=== PATIENT | female | born 1930 | race Caucasian/White ===

== ENCOUNTER 2016-11-25 16:52 | Inpatient (IN) | payer OTHER ==
[~2016-11-25] VITALS: Ht 167.6 cm; Wt 87.6 kg
[~2016-11-25 16:52] MED LIST: ALBU1AER9 INH; ASPI81TA28 PO; LEVO100T7 PO; LISI-461 PO; LPT40 PO; TPRSR/50 PO; XLTOPS OPB
[2016-11-25] MEDS ORDERED: SODIUM CHLORIDE 0.9% 1000ML 1,000 ML IV STA (17:26)
[2016-11-25] MEDS ORDERED: ACETAMINOPHEN 325 MG TAB PO STA (17:26)
[2016-11-25 17:37] LABS: URINE APPEARANCE TURBID (CLEAR); URINE BILIRUBIN NEG (NEG); URINE COLOR YELLOW; URINE EPITHELIAL CELL AUTO 0-5 /lpf (0-5); URINE NITRITE POS (NEG); URINE SPECIFIC GRAVITY 1.013 (1.000-1.030); UROBILINOGEN NEG (NEG); ZZURINE CULT IF INDIC CATH YES
[2016-11-25 17:38] LABS: MANUAL MICROSCOPIC REQUIRED? NO; REVIEW REQ? YES
[2016-11-25 17:53] LABS: BASO % 0.1 %; BASO ABS # 0.01 K/uL (0-0.2); COMPLETE YES; EOS % 0.1 %; HEMATOCRIT 38.1 % (37-47); IG% 0.2 %; LYMPH % 3.8 %; LYMPH ABS # 0.45 K/uL (1.2-3.4); MEAN CELL VOLUME 97.7 fL (80-100); MEAN CORPUSCULAR HEMOGLOBIN 31.8 pg (25-34); MEAN CORPUSCULAR HGB CONC 32.5 g/dl (32-36); MEAN PLATELET VOLUME 8.8 fL (7.4-10.4); MONO % 9.2 %; NEUT % 86.6 %; PLATELET COUNT 198 K/uL (130-400); WHITE BLOOD COUNT 11.69 K/uL (4.8-10.8)
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
[2016-11-25 18:15] LABS: BUN/CREATININE RATIO 20.4 (10-20); CREATININE 1.2 mg/dl (0.60-1.20); MAGNESIUM 2.2 mg/dl (1.8-2.4); POTASSIUM 4.2 mmol/L (3.5-5.1)
--- NOTE | 2016-11-25 18:45 | DIAGNOSTIC IMAGING REPORT ---
SINGLE VIEW CHEST CLINICAL HISTORY: Fever. Tachycardia. Change in mental status. FINDINGS: An AP, portable, upright chest radiograph is compared to study dated 03/22/2015. The examination is degraded by portable technique and patient rotation. A 2-lead cardiac pacemaker is unchanged in position and partially obscures the left upper chest. The heart is enlarged and there is atherosclerotic calcification of the thoracic aorta. A hiatal hernia is suspected. The pulmonary vasculature is noncongested. Chronic interstitial thickening is unchanged. Bibasilar atelectasis is observed. Scattered calcified granulomas are noted. No pneumothorax is seen. The skeletal structures are osteopenic. Arthritic change is seen in the shoulders and thoracic spine. IMPRESSION: 1. Cardiomegaly and cardiac pacemaker. There is no radiographic evidence of congestive failure. 2. There is no airspace consolidation or large pleural effusion. Electronically signed by: Nicolás Ochoa M.D. 11/25/2016 6:44 PM Dictated Date/Time: 11/25/2016 6:33 PM
[2016-11-25] MEDS ORDERED: CEFTRIAXONE SOD INJ 1 GM ADDVIAL IV STA (19:23)
[2016-11-25] MEDS ORDERED: OXYB5TAB PO (19:48)
[2016-11-25] MEDS ORDERED: ALBU18002 INH (19:48)
[2016-11-25] MEDS ORDERED: ALBINS/ INH (19:48)
--- NOTE | 2016-11-25 20:08 | DIAGNOSTIC IMAGING REPORT ---
CT SCAN OF THE BRAIN WITHOUT IV CONTRAST CLINICAL HISTORY: Change in mental status. COMPARISON STUDY: CT of the brain dated 06/06/2010. TECHNIQUE: Unenhanced axial CT scan of the brain is performed from the vertex to the skull base. CT DOSE: 537.48 mGy.cm FINDINGS: Brain parenchyma: There are age-related involutional changes noting moderate to advanced patchy subcortical and periventricular microangiopathic change. A chronic lacunar infarct is identified in the left caudate head. There is no hemorrhage, mass effect, or evidence of acute territorial ischemia by CT criteria. Kemp-white matter is preserved. No extra-axial fluid collection is seen. Ventricles, sulci, cisterns: Prominent secondary to involutional change. Intracranial vasculature: There is atherosclerotic calcification of the cavernous carotid arteries. Calvarium: Unremarkable. Sinuses and mastoids: There is subtotal opacification of the left maxillary antrum. Thickening and sclerosis of the sinus wall suggests chronicity. The remaining visualized paranasal sinuses are clear. The mastoid air cells are well pneumatized. Orbits: The bony orbits are grossly intact. IMPRESSION: Senescent changes as above with no hemorrhage, mass effect, or evidence of acute territorial ischemia by CT criteria. Electronically signed by: Nicolás Ochoa M.D. 11/25/2016 8:06 PM Dictated Date/Time: 11/25/2016 8:03 PM
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
[2016-11-25 22:10] VITALS: BP 166/72; PULSE 88; TEMP 37; Ht 167.6 cm; Wt 87.6 kg
[2016-11-25] MEDS: SODIUM CHLORIDE 0.9% 500ML 500 ML IV SCH (23:15)
[2016-11-25 23:32] LABS: PROTHROMBIN TIME (PATIENT) 10.7 SECONDS (9.0-12.0)
[2016-11-25 23:44] VITALS: BP 162/72; PULSE 87; TEMP 36.7; O2SAT 99
[2016-11-26] VITALS (14 sets, daily range): BP systolic 95–162; BP diastolic 54–79; PULSE 66–98; TEMP 36.4–37.4; O2SAT 94–97
[2016-11-26] MEDS: LEVOTHYROXINE 100 MCG TAB PO SCH (06:02)
[2016-11-26 06:35] LABS: HEMATOCRIT 39.7 % (37-47); MEAN CELL VOLUME 98.8 fL (80-100); MEAN CORPUSCULAR HEMOGLOBIN 31.6 pg (25-34); MEAN PLATELET VOLUME 8.8 fL (7.4-10.4); PLATELET COUNT 198 K/uL (130-400); RED BLOOD COUNT 4.02 M/uL (4.2-5.4); WHITE BLOOD COUNT 13.38 K/uL (4.8-10.8)
--- NOTE | 2016-11-26 06:57 | DIAGNOSTIC IMAGING REPORT ---
CHEST CTA for PULMONARY ARTERIES CT DOSE: 639.54 mGy.cm HISTORY: Chest pain dyspnea TECHNIQUE: Multiaxial CT images of the chest were performed following the intravenous administration of contrast to evaluate the pulmonary arteries. Maximal intensity projection images were also obtained. COMPARISON STUDY: None. FINDINGS: There is a normal caliber thoracic aorta with no evidence for dissection. There is no evidence for pulmonary embolus. No pleural effusions. No pneumothorax. The liver and spleen are unremarkable. No mediastinal or hilar lymphadenopathy. The central airways are patent. The lungs are clear. Mild cardiomegaly. Cardiac pacemaker placement. Moderate patient motion. Nondiagnostic evaluation of the vessels. Mild prominence of pulmonary vasculature. Generalized atherosclerotic change and ectasia thoracic aorta. IMPRESSION: 1. No evidence for major central pulmonary embolus. 2. Motion artifacts obscures detail of the peripheral vasculature. 3. Moderate cardiomegaly. 4. Generalized ectasia and atherosclerotic change thoracic aorta. Maximum diameter of the aortic root is 3.9 cm. Electronically signed by: Jason Last M.D. 11/26/2016 6:55 AM Dictated Date/Time: 11/26/2016 6:53 AM
[2016-11-26] MEDS: ALBUT/IPRATROP 3MG/0.5MG NEB 3 ML VIAL INH SCH ×4 (07:02→19:15)
[2016-11-26 07:06] LABS: BUN/CREATININE RATIO 15.5 (10-20); CREATININE 1.2 mg/dl (0.60-1.20); MAGNESIUM 2.2 mg/dl (1.8-2.4); POTASSIUM 4.2 mmol/L (3.5-5.1)
[2016-11-26 07:16] LABS: BASO % 0.1 %; BASO ABS # 0.02 K/uL (0-0.2); COMPLETE YES; EOS % 0.1 %; IG% 0.2 %; LYMPH % 7.8 %; LYMPH ABS # 1.04 K/uL (1.2-3.4); MONO % 11.3 %; NEUT % 80.5 %
[2016-11-26 07:17] LABS: THYROID STIMULATING HORMONE 0.329 uIu/ml (0.300-4.500)
--- NOTE | 2016-11-26 07:53 | DIAGNOSTIC IMAGING REPORT ---
ULTRASOUND VENOUS DOPPLER LWR EXT BILA CLINICAL HISTORY: Leg swelling. Chest pain. Dyspnea. COMPARISON STUDY: No previous studies for comparison. FINDINGS: Real-time and color flow Doppler imaging were performed. Flow was seen within the femoral, popliteal and calf veins with no intraluminal thrombus demonstrated. The saphenous vein is patent. IMPRESSION: No evidence of lower extremity DVT. Electronically signed by: Darius Correa M.D. 11/26/2016 7:52 AM Dictated Date/Time: 11/26/2016 7:51 AM
[2016-11-26] MEDS ORDERED: PNEUMOCOCCAL POLYSACCHARIDES 25 MCG/0.5 ML VIAL/SYR IM. ONE (08:00)
[2016-11-26] MEDS ORDERED: PNEUMOCOCCAL ADMINISTRATION CHARGE ONE (08:00)
[2016-11-26] MEDS: SODIUM CHLORIDE 0.9% 500ML 500 ML IV SCH ×2 (08:14→17:15)
[2016-11-26] MEDS: ATORVASTATIN 40 MG TAB PO SCH (08:14)
[2016-11-26] MEDS: ASPIRIN 81 MG ECTAB PO SCH (08:14)
[2016-11-26] MEDS: OXYBUTYNIN CHLORIDE 5 MG TABCR PO SCH (08:15)
[2016-11-26] MEDS: METOPROLOL SUCC 50MG EXT REL TAB PO SCH (08:15)
[2016-11-26] MEDS: LISINOPRIL 10 MG TAB PO SCH (08:15)
[2016-11-26] MEDS: ENOXAPARIN 40 MG/0.4 ML SYR SQ SCH (08:16)
--- NOTE | 2016-11-26 10:22 | Progress Note ---
Medicine Progress Note Date & Time of Visit: November 26, 2016 at 10:22 . Subjective Febrile in ED, but no fever or chills since admission. Feels better. No chest pain. No cough or SOB. No nausea, vomiting, diarrhea. No dysuria, but has been having problems with urinary incontinence. . Objective Last 8 Hrs Date Time Temp Pulse Resp B/P Pulse Ox O2 Delivery O2 Flow Rate FiO2 11/26/16 08:00 96 Nasal Cannula 2.0 11/26/16 07:29 37.4 80 18 128/66 94 2.0 11/26/16 07:02 72 16 94 Nasal Cannula 2.0 11/26/16 04:00 Nasal Cannula 2.0 11/26/16 03:09 37.1 94 22 154/68 96 Nasal Cannula 2.0 Physical Exam: General- no distress Eyes- anicteric Neck- no JVD Lungs- clear to auscultation Heart- RRR Abdomen- + BS, soft, nontender Back- no CVAT Extremities- no pretibial edema or calf tenderness Neuro- alert, somewhat confused . Laboratory Results: Last 24 Hours Test 11/25/16 17:15 11/25/16 17:40 11/25/16 17:44 11/25/16 22:18 Urine Color YELLOW Urine Appearance TURBID Urine pH 6.0 Urine Specific [place] 1.013 Urine Protein 1+ Urine Glucose (UA) NEG Urine Ketones NEG Urine Occult Blood 2+ Urine Nitrite POS Urine Bilirubin NEG Urine Urobilinogen NEG Urine Leukocyte Esterase LARGE Urine WBC (Auto) >30 /hpf Urine RBC (Auto) 0-4 /hpf Urine Hyaline Casts (Auto) 1-5 /lpf Urine Epithelial Cells (Auto) 0-5 /lpf Urine Bacteria (Auto) 4+ Urine Yeast (Auto) PRESENT White Blood Count 11.69 K/uL Red Blood Count 3.90 M/uL Hemoglobin 12.4 g/dL Hematocrit 38.1 % Mean Corpuscular Volume 97.7 fL Mean Corpuscular Hemoglobin 31.8 pg Mean Corpuscular Hemoglobin Concent 32.5 g/dl Platelet Count 198 K/uL Mean Platelet Volume 8.8 fL Neutrophils (%) (Auto) 86.6 % Lymphocytes (%) (Auto) 3.8 % Monocytes (%) (Auto) 9.2 % Eosinophils (%) (Auto) 0.1 % Basophils (%) (Auto) 0.1 % Neutrophils # (Auto) 10.12 K/uL Lymphocytes # (Auto) 0.45 K/uL Monocytes # (Auto) 1.08 K/uL Eosinophils # (Auto) 0.01 K/uL Basophils # (Auto) 0.01 K/uL RDW Standard Deviation 50.5 fL RDW Coefficient of Variation 14.1 % Immature Granulocyte % (Auto) 0.2 % Immature Granulocyte # (Auto) 0.02 K/uL Sodium Level 140 mmol/L Potassium Level 4.2 mmol/L Chloride Level 106 mmol/L Carbon Dioxide Level 27 mmol/L Anion Gap 7.0 mmol/L Blood Urea Nitrogen 24 mg/dl Creatinine 1.20 mg/dl Est Creatinine Clear Calc Drug Dose 41.6 ml/min Estimated GFR () 48.1 Estimated GFR (Non- 41.5 BUN/Creatinine Ratio 20.4 Random Glucose 139 mg/dl Calcium Level 9.0 mg/dl Magnesium Level 2.2 mg/dl Total Bilirubin 1.2 mg/dl Direct Bilirubin 0.2 mg/dl Aspartate Amino Transf (AST/SGOT) 13 U/L Alanine Aminotransferase (ALT/SGPT) 19 U/L Alkaline Phosphatase 78 U/L Total Protein 6.6 gm/dl Albumin 3.2 gm/dl Bedside Lactic Acid Venous 0.71 mmol/L D-Dimer 900 ug/L FEU Test 11/25/16 22:22 11/26/16 06:18 Prothrombin Time 10.7 SECONDS Prothromb Time International Ratio 1.0 White Blood Count 13.38 K/uL Red Blood Count 4.02 M/uL Hemoglobin 12.7 g/dL Hematocrit 39.7 % Mean Corpuscular Volume 98.8 fL Mean Corpuscular Hemoglobin 31.6 pg Mean Corpuscular Hemoglobin Concent 32.0 g/dl Platelet Count 198 K/uL Mean Platelet Volume 8.8 fL Neutrophils (%) (Auto) 80.5 % Lymphocytes (%) (Auto) 7.8 % Monocytes (%) (Auto) 11.3 % Eosinophils (%) (Auto) 0.1 % Basophils (%) (Auto) 0.1 % Neutrophils # (Auto) 10.77 K/uL Lymphocytes # (Auto) 1.04 K/uL Monocytes # (Auto) 1.51 K/uL Eosinophils # (Auto) 0.01 K/uL Basophils # (Auto) 0.02 K/uL RDW Standard Deviation 52.3 fL RDW Coefficient of Variation 14.3 % Immature Granulocyte % (Auto) 0.2 % Immature Granulocyte # (Auto) 0.03 K/uL Sodium Level 142 mmol/L Potassium Level 4.2 mmol/L Chloride Level 108 mmol/L Carbon Dioxide Level 29 mmol/L Anion Gap 5.0 mmol/L Blood Urea Nitrogen 19 mg/dl Creatinine 1.20 mg/dl Est Creatinine Clear Calc Drug Dose 38.9 ml/min Estimated GFR () 48.1 Estimated GFR (Non- 41.5 BUN/Creatinine Ratio 15.5 Random Glucose 123 mg/dl Calcium Level 9.0 mg/dl Magnesium Level 2.2 mg/dl Vitamin B12 Level 835 pg/mL Folate > 24.00 ng/mL Thyroid Stimulating Hormone (TSH) 0.329 uIu/ml Free Thyroxine 1.25 ng/dl Date/Time Source Procedure Growth Status 11/25/16 18:00 Blood Blood Culture - Preliminary Gram Negative Bacilli Resulted 11/25/16 17:40 Blood Blood Culture - Preliminary Gram Negative Bacilli Resulted 11/25/16 17:15 Urine,Catheterized Urine Culture - Preliminary Escherichia Coli Resulted Assessment & Plan SEPSIS / UTI Meets criteria for sepsis per 2001 definition and current CMS guidelines. (Fever, tachycardia, leukocytosis, altered mental status.) Serum lactate 0.71. Hemodynamically stable. Blood and urine cultures growing gram negative bacilli. Continue ceftriaxone pending C&S results. Check renal US to rule out calculi, hydronephrosis, etc. ALTERED MENTAL STATUS Encephalopathy secondary to infection. Improved. HYPERTENSION Continue metoprolol. CEREBROVASCULAR DISEASE History stroke left basal ganglia 2009. Continue aspirin, statin. ASTHMA Mild wheezing. Continue bronchodilators. HYPOTHYROIDISM TSH 0.329. Continue levothyroxine. VTE PROPHYLAXIS SQ enoxaparin. Ambulate. DISPOSITION May need skilled care or inpatient rehab. Medical follow-up with Bouchra Skinner MD ([facility]). contacted by phone and given update. He is concerned that he may not be able to care for patient if she is not independent at time of discharge. . Current Inpatient Medications: Current Inpatient Medications Medications (Trade) Dose Ordered Sig/Mak Route Start Time Stop Time Status Last Admin Dose Admin Ceftriaxone Sodium/Dextrose (Rocephin Inj/ Dextrose Add-[place] 50ML) 50 ml @ 100 mls/hr Q24H IV 11/26/16 20:00 11/29/16 20:29 Albuterol/ Ipratropium (Duoneb) 3 ml QIDR INH 11/26/16 08:00 12/26/16 07:59 11/26/16 07:02 3 ML Aspirin (Ecotrin Tab) 81 mg DAILY PO 11/26/16 09:00 12/26/16 08:59 11/26/16 08:14 81 MG Atorvastatin Calcium (Lipitor Tab) 40 mg DAILY PO 11/26/16 09:00 12/26/16 08:59 11/26/16 08:14 40 MG Levothyroxine Sodium (Synthroid Tab) 100 mcg DAILYBB PO 11/26/16 06:00 12/26/16 05:59 11/26/16 06:02 100 MCG Lisinopril (Zestril Tab) 10 mg DAILY PO 11/26/16 09:00 12/26/16 08:59 11/26/16 08:15 10 MG Metoprolol Succinate (Toprol Xl Tab) 50 mg DAILY PO 11/26/16 09:00 12/26/16 08:59 11/26/16 08:15 50 MG Oxybutynin Chloride 5 mg 5 mg DAILY PO 11/26/16 09:00 12/26/16 08:59 11/26/16 08:15 5 MG Sodium Chloride (Nss 500ml) 500 ml @ 50 mls/hr Q10H IV 11/25/16 21:15 12/25/16 21:14 11/26/16 08:14 50 MLS/HR Enoxaparin Sodium (Lovenox Inj) 40 mg DAILY SQ 11/26/16 09:00 12/26/16 08:59 11/26/16 08:16 40 MG Latanoprost (Xalatan Oph Soln) 1 drops HS OPB 11/26/16 21:00 12/26/16 20:59
--- NOTE | 2016-11-26 14:20 | DIAGNOSTIC IMAGING REPORT ---
ULTRASOUND KIDNEYS AND BLADDER CLINICAL HISTORY: Sepsis. Urinary tract infection. COMPARISON STUDY: No priors. TECHNIQUE: Real-time, grayscale, and color flow sonography of the kidneys and bladder is performed. Images are reviewed in the transverse and longitudinal planes. FINDINGS: Kidneys: The kidneys demonstrate cortical atrophy. The right kidney measures 11.0 cm in length and the left kidney measures 10.0 cm in length. There is no hydronephrosis. No shadowing renal calculi are identified. There is no sonographic evidence of contour deforming renal mass lesion. No perinephric fluid is identified. Bladder: The bladder is decompressed and could not be assessed. IMPRESSION: 1. The kidneys demonstrate cortical atrophy and are without hydronephrosis. 2. The bladder was decompressed and could not be evaluated Electronically signed by: Nicolás Ochoa M.D. 11/26/2016 2:18 PM Dictated Date/Time: 11/26/2016 2:17 PM
[2016-11-26] MEDS: CEFTRIAXONE SOD INJ 1 GM in DEXTROSE 5% ADD-VANTAGE 50ML 50 ML IV SCH (20:46)
[2016-11-26] MEDS: LATANOPROST 0.005% OP SOLN 2.5 ML BTL OPB SCH (20:46)
[2016-11-26] MEDS ORDERED: LATANOPROST 0.005% OP SOLN 2.5 ML BTL OPB SCH (21:00)
[2016-11-27] VITALS (11 sets, daily range): BP systolic 136–164; BP diastolic 66–85; PULSE 73–93; TEMP 36.6–37.3; O2SAT 93–98
[2016-11-27] MEDS: SODIUM CHLORIDE 0.9% 500ML 500 ML IV SCH (03:02)
[2016-11-27] MEDS: LEVOTHYROXINE 100 MCG TAB PO SCH (05:36)
[2016-11-27] MEDS: IPRATROPIUM BROMIDE/ALBUTEROL respimat INH INH SCH ×4 (07:00→20:30)
[2016-11-27 07:12] LABS: HEMATOCRIT 37.3 % (37-47); MEAN CELL VOLUME 98.2 fL (80-100); MEAN CORPUSCULAR HEMOGLOBIN 32.6 pg (25-34); MEAN CORPUSCULAR HGB CONC 33.2 g/dl (32-36); MEAN PLATELET VOLUME 8.7 fL (7.4-10.4); PLATELET COUNT 186 K/uL (130-400); WHITE BLOOD COUNT 10.38 K/uL (4.8-10.8)
[2016-11-27] MEDS ORDERED: ALBUT/IPRATROP 3MG/0.5MG NEB 3 ML VIAL INH PRN (07:15)
[2016-11-27] MEDS: LISINOPRIL 10 MG TAB PO SCH (07:39)
[2016-11-27] MEDS: ATORVASTATIN 40 MG TAB PO SCH (07:39)
[2016-11-27] MEDS: METOPROLOL SUCC 50MG EXT REL TAB PO SCH (07:39)
[2016-11-27] MEDS: OXYBUTYNIN CHLORIDE 5 MG TABCR PO SCH (07:39)
[2016-11-27] MEDS: ASPIRIN 81 MG ECTAB PO SCH (07:39)
[2016-11-27] MEDS: ENOXAPARIN 40 MG/0.4 ML SYR SQ SCH (07:40)
[2016-11-27 07:45] LABS: BUN/CREATININE RATIO 18.2 (10-20); CALCIUM 8.6 mg/dl (8.5-10.1); POTASSIUM 4.3 mmol/L (3.5-5.1)
--- NOTE | 2016-11-27 18:23 | Progress Note ---
Medicine Progress Note Date & Time of Visit: November 27, 2016 at 11:20 . Subjective No fever or chills. No chest pain. No cough or SOB. No nausea, vomiting, diarrhea. No dysuria. Out of bed in chair. . Objective Last 8 Hrs Date Time Temp Pulse Resp B/P Pulse Ox O2 Delivery O2 Flow Rate FiO2 11/27/16 16:00 Nasal Cannula 2.0 11/27/16 15:46 37.2 73 20 150/85 98 Nasal Cannula 2.0 11/27/16 13:32 36.6 79 18 148/75 98 Nasal Cannula 2.0 11/27/16 12:57 37.2 82 24 96 2.0 11/27/16 12:01 37.2 82 24 136/69 96 Nasal Cannula 2.0 11/27/16 12:00 96 Nasal Cannula 2.0 Physical Exam: General- sitting in chair, no distress Neck- no JVD Lungs- mild wheezing Heart- RRR Abdomen- + BS, soft, nontender Back- no CVAT Extremities- no pretibial edema or calf tenderness Neuro- alert, confused . Laboratory Results: Last 24 Hours Test 11/27/16 07:00 White Blood Count 10.38 K/uL Red Blood Count 3.80 M/uL Hemoglobin 12.4 g/dL Hematocrit 37.3 % Mean Corpuscular Volume 98.2 fL Mean Corpuscular Hemoglobin 32.6 pg Mean Corpuscular Hemoglobin Concent 33.2 g/dl RDW Standard Deviation 51.2 fL RDW Coefficient of Variation 14.1 % Platelet Count 186 K/uL Mean Platelet Volume 8.7 fL Sodium Level 141 mmol/L Potassium Level 4.3 mmol/L Chloride Level 107 mmol/L Carbon Dioxide Level 28 mmol/L Anion Gap 6.0 mmol/L Blood Urea Nitrogen 18 mg/dl Creatinine 1.00 mg/dl Est Creatinine Clear Calc Drug Dose 46.7 ml/min Estimated GFR () 59.9 Estimated GFR (Non- 51.7 BUN/Creatinine Ratio 18.2 Random Glucose 128 mg/dl Calcium Level 8.6 mg/dl Assessment & Plan SEPSIS / UTI Meets criteria for sepsis per 2001 definition and current CMS guidelines. (Fever, tachycardia, leukocytosis, altered mental status.) Serum lactate 0.71. Hemodynamically stable. Urine culture grew E coli. Blood cultures growing gram negative bacilli. Continue ceftriaxone pending final C&S results. Renal US negative for stones / hydronephrosis. ALTERED MENTAL STATUS Encephalopathy secondary to infection. Improved. HYPERTENSION Continue metoprolol. CEREBROVASCULAR DISEASE History stroke left basal ganglia 2009. Continue aspirin, statin. ASTHMA Mild wheezing. Continue bronchodilators. HYPOTHYROIDISM TSH 0.329. Continue levothyroxine. VTE PROPHYLAXIS SQ enoxaparin. Ambulate. DISPOSITION May need skilled care or inpatient rehab. Case Management consulted. Medical follow-up with Bouchra Skinner MD ([facility]). Hemodynamically stable. Transfer to Med-Surg. . Current Inpatient Medications: Current Inpatient Medications Medications (Trade) Dose Ordered Sig/Mak Route Start Time Stop Time Status Last Admin Dose Admin Ceftriaxone Sodium/Dextrose (Rocephin Inj/ Dextrose Add-[place] 50ML) 50 ml @ 100 mls/hr Q24H IV 11/26/16 20:00 11/29/16 20:29 11/26/16 20:46 100 MLS/HR Aspirin (Ecotrin Tab) 81 mg DAILY PO 11/26/16 09:00 12/26/16 08:59 11/27/16 07:39 81 MG Atorvastatin Calcium (Lipitor Tab) 40 mg DAILY PO 11/26/16 09:00 12/26/16 08:59 11/27/16 07:39 40 MG Levothyroxine Sodium (Synthroid Tab) 100 mcg DAILYBB PO 11/26/16 06:00 12/26/16 05:59 11/27/16 05:36 100 MCG Lisinopril (Zestril Tab) 10 mg DAILY PO 11/26/16 09:00 12/26/16 08:59 11/27/16 07:39 10 MG Metoprolol Succinate (Toprol Xl Tab) 50 mg DAILY PO 11/26/16 09:00 12/26/16 08:59 11/27/16 07:39 50 MG Oxybutynin Chloride (Ditropan-Xl Tab) 5 mg DAILY PO 11/26/16 09:00 12/26/16 08:59 11/27/16 07:39 5 MG Enoxaparin Sodium (Lovenox Inj) 40 mg DAILY SQ 11/26/16 09:00 12/26/16 08:59 11/27/16 07:40 40 MG Latanoprost (Xalatan Oph Soln) 1 drops HS OPB 11/26/16 21:00 12/26/16 20:59 11/26/16 20:46 1 DROPS Albuterol/ Ipratropium (Combivent Respimat Inh) 1 puffs QID INH 11/27/16 13:00 12/27/16 12:59 11/27/16 17:10 1 PUFFS Albuterol/ Ipratropium (Duoneb) 3 ml Q2H PRN INH 11/27/16 07:15 12/26/16 07:59
[2016-11-27] MEDS: CEFTRIAXONE SOD INJ 1 GM in DEXTROSE 5% ADD-VANTAGE 50ML 50 ML IV SCH (19:52)
[2016-11-27] MEDS: LATANOPROST 0.005% OP SOLN 2.5 ML BTL OPB SCH (20:31)
[2016-11-28] MEDS: LEVOTHYROXINE 100 MCG TAB PO SCH (05:25)
[2016-11-28 05:57] LABS: HEMATOCRIT 38.3 % (37-47); MEAN CELL VOLUME 98.2 fL (80-100); MEAN CORPUSCULAR HEMOGLOBIN 32.3 pg (25-34); MEAN CORPUSCULAR HGB CONC 32.9 g/dl (32-36); PLATELET COUNT 203 K/uL (130-400); WHITE BLOOD COUNT 8.17 K/uL (4.8-10.8)
[2016-11-28 06:27] LABS: BUN/CREATININE RATIO 22.3 (10-20); CALCIUM 9.2 mg/dl (8.5-10.1); CREATININE 0.97 mg/dl (0.60-1.20); POTASSIUM 4.3 mmol/L (3.5-5.1)
[2016-11-28 07:57] VITALS: BP 149/65; PULSE 102; TEMP 36.6; O2SAT 92
[2016-11-28] MEDS: ATORVASTATIN 40 MG TAB PO SCH (08:00)
[2016-11-28] MEDS: IPRATROPIUM BROMIDE/ALBUTEROL respimat INH INH SCH ×4 (08:11→19:56)
[2016-11-28] MEDS: LISINOPRIL 10 MG TAB PO SCH (08:12)
[2016-11-28] MEDS: OXYBUTYNIN CHLORIDE 5 MG TABCR PO SCH (08:12)
[2016-11-28] MEDS: METOPROLOL SUCC 50MG EXT REL TAB PO SCH (08:12)
[2016-11-28] MEDS: ASPIRIN 81 MG ECTAB PO SCH (08:12)
[2016-11-28] MEDS: ENOXAPARIN 40 MG/0.4 ML SYR SQ SCH (08:13)
[2016-11-28 08:30] VITALS: O2SAT 92
--- NOTE | 2016-11-28 09:15 | Progress Note ---
Medicine Progress Note Date & Time of Visit: November 28, 2016 at 07:50 . Subjective No fever. No chills or sweats. No chest pain. No cough or SOB. No nausea or vomiting. No BM recorded since admission. No dysuria. . Objective Last 8 Hrs Date Time Temp Pulse Resp B/P Pulse Ox O2 Delivery O2 Flow Rate FiO2 11/28/16 07:57 36.6 102 20 149/65 92 Physical Exam: General- lying in bed, no distress Neck- no JVD Lungs- diffuse mild wheezing Heart- RRR Abdomen- + BS, soft, nontender Extremities- no pretibial edema or calf tenderness Neuro- alert, confused . Laboratory Results: Last 24 Hours Test 11/28/16 05:25 White Blood Count 8.17 K/uL Red Blood Count 3.90 M/uL Hemoglobin 12.6 g/dL Hematocrit 38.3 % Mean Corpuscular Volume 98.2 fL Mean Corpuscular Hemoglobin 32.3 pg Mean Corpuscular Hemoglobin Concent 32.9 g/dl RDW Standard Deviation 50.0 fL RDW Coefficient of Variation 13.9 % Platelet Count 203 K/uL Mean Platelet Volume 9.0 fL Sodium Level 141 mmol/L Potassium Level 4.3 mmol/L Chloride Level 105 mmol/L Carbon Dioxide Level 31 mmol/L Anion Gap 5.0 mmol/L Blood Urea Nitrogen 22 mg/dl Creatinine 0.97 mg/dl Est Creatinine Clear Calc Drug Dose 48.1 ml/min Estimated GFR () 62.2 Estimated GFR (Non- 53.6 BUN/Creatinine Ratio 22.3 Random Glucose 102 mg/dl Calcium Level 9.2 mg/dl Assessment & Plan SEPSIS / UTI Met criteria for sepsis per 2001 definition and current CMS guidelines. (Fever, tachycardia, leukocytosis, altered mental status.) Serum lactate 0.71. Hemodynamically stable. Renal US negative for stones / hydronephrosis. Blood and urine cultures grew E coli, sensitive to everything but ampicillin. Received ceftriaxone x 3 doses; transition to oral therapy with cephalexin to complete 10 day course of antibiotic therapy. ALTERED MENTAL STATUS Encephalopathy secondary to infection. Improved. HYPERTENSION Continue metoprolol. CEREBROVASCULAR DISEASE History stroke left basal ganglia 2009. Continue aspirin, statin. ASTHMA Mild wheezing. Continue bronchodilators. HYPOTHYROIDISM TSH 0.329. Continue levothyroxine. DEMENTIA reports problems with memory for some time. Monitor for delirium. VTE PROPHYLAXIS SQ enoxaparin. Ambulate. DISPOSITION May need skilled care or inpatient rehab. Case Management consulted. Medical follow-up with Bouchra Skinner MD ([facility]). . Current Inpatient Medications: Current Inpatient Medications Medications (Trade) Dose Ordered Sig/Mak Route Start Time Stop Time Status Last Admin Dose Admin Ceftriaxone Sodium/Dextrose (Rocephin Inj/ Dextrose Add-[place] 50ML) 50 ml @ 100 mls/hr Q24H IV 11/26/16 20:00 11/29/16 20:29 11/27/16 19:52 100 MLS/HR Aspirin (Ecotrin Tab) 81 mg DAILY PO 11/26/16 09:00 12/26/16 08:59 11/28/16 08:12 81 MG Atorvastatin Calcium (Lipitor Tab) 40 mg DAILY PO 11/26/16 09:00 12/26/16 08:59 11/27/16 07:39 40 MG Levothyroxine Sodium (Synthroid Tab) 100 mcg DAILYBB PO 11/26/16 06:00 12/26/16 05:59 11/28/16 05:25 100 MCG Lisinopril (Zestril Tab) 10 mg DAILY PO 11/26/16 09:00 12/26/16 08:59 11/28/16 08:12 10 MG Metoprolol Succinate (Toprol Xl Tab) 50 mg DAILY PO 11/26/16 09:00 12/26/16 08:59 11/28/16 08:12 50 MG Oxybutynin Chloride (Ditropan-Xl Tab) 5 mg DAILY PO 11/26/16 09:00 12/26/16 08:59 11/28/16 08:12 5 MG Enoxaparin Sodium (Lovenox Inj) 40 mg DAILY SQ 11/26/16 09:00 12/26/16 08:59 11/28/16 08:13 40 MG Latanoprost (Xalatan Oph Soln) 1 drops HS OPB 11/26/16 21:00 12/26/16 20:59 11/27/16 20:31 1 DROPS Albuterol/ Ipratropium (Combivent Respimat Inh) 1 puffs QID INH 11/27/16 13:00 12/27/16 12:59 11/28/16 08:11 1 PUFFS Albuterol/ Ipratropium (Duoneb) 3 ml Q2H PRN INH 11/27/16 07:15 12/26/16 07:59
[2016-11-28] MEDS ORDERED: POLYETHYLENE (MIRALAX) 17 GM PACK PO ONE (09:30)
[2016-11-28 11:00] VITALS: O2SAT 95
[2016-11-28] MEDS: CEPHALEXIN MONOHYDRATE 500 MG CAP PO SCH ×2 (14:40→19:56)
[2016-11-28 15:27] VITALS: BP 129/77; TEMP 36.4; O2SAT 95
[2016-11-28 16:00] VITALS: O2SAT 95
[2016-11-28] MEDS: POLYETHYLENE (MIRALAX) 17 GM PACK PO SCH (19:57)
[2016-11-28] MEDS: LATANOPROST 0.005% OP SOLN 2.5 ML BTL OPB SCH (19:57)
[2016-11-28 22:53] VITALS: BP 179/85; PULSE 78; TEMP 36.9; O2SAT 94
[2016-11-29] MEDS: LEVOTHYROXINE 100 MCG TAB PO SCH (06:18)
[2016-11-29 07:53] VITALS: BP 172/67; PULSE 55; TEMP 36.7; O2SAT 93
[2016-11-29] MEDS: CEPHALEXIN MONOHYDRATE 500 MG CAP PO SCH ×3 (08:01→20:32)
[2016-11-29] MEDS: IPRATROPIUM BROMIDE/ALBUTEROL respimat INH INH SCH ×4 (08:01→20:32)
[2016-11-29] MEDS: ASPIRIN 81 MG ECTAB PO SCH (08:02)
[2016-11-29] MEDS: POLYETHYLENE (MIRALAX) 17 GM PACK PO SCH ×2 (08:02→20:32)
[2016-11-29] MEDS: OXYBUTYNIN CHLORIDE 5 MG TABCR PO SCH (08:02)
[2016-11-29] MEDS: METOPROLOL SUCC 50MG EXT REL TAB PO SCH (08:02)
[2016-11-29] MEDS: LISINOPRIL 10 MG TAB PO SCH (08:02)
[2016-11-29] MEDS: ATORVASTATIN 40 MG TAB PO SCH (08:02)
[2016-11-29 08:03] VITALS: PULSE 68; O2SAT 96
[2016-11-29] MEDS: ENOXAPARIN 40 MG/0.4 ML SYR SQ SCH (08:03)
[2016-11-29 09:05] VITALS: BP 143/76
--- NOTE | 2016-11-29 12:39 | DIAGNOSTIC IMAGING REPORT ---
BILATERAL CAROTID DOPPLER STUDY HISTORY: Mental status change carotid artery disease COMPARISON: None. TECHNIQUE: Real-time, grayscale, and color Doppler sonography of the carotid arteries was performed. Imaging reviewed in the transverse and longitudinal planes. All measurements were calculated based on NASCET criteria. FINDINGS: Antegrade flow is seen in the bilateral vertebral arteries. The brachial pressures are hemodynamically similar. Moderate plaque formation bilaterally The peak systolic velocity within the right ICA is 1:15. The right systolic ratio is 1.6. The peak systolic velocity within the left ICA is 65. The left systolic ratio is 0.5. IMPRESSION: No hemodynamically significant stenosis seen within the carotid arteries. Moderate narrowing of the external carotid arteries bilaterally. Electronically signed by: Jason Last M.D. 11/29/2016 12:38 PM Dictated Date/Time: 11/29/2016 12:35 PM
[2016-11-29 15:38] VITALS: BP 124/73; PULSE 87; TEMP 36.7; O2SAT 95
[2016-11-29] MEDS: LATANOPROST 0.005% OP SOLN 2.5 ML BTL OPB SCH (20:32)
--- NOTE | 2016-11-29 21:54 | Progress Note ---
Medicine Progress Note Date & Time of Visit: November 29, 2016 at 09:50 . Subjective No fever. No chest pain, cough, SOB. No nausea or vomiting. No dysuria. Needs assistance with ambulation. . Objective Last 8 Hrs Date Time Temp Pulse Resp B/P Pulse Ox O2 Delivery O2 Flow Rate FiO2 11/29/16 16:00 Room Air 11/29/16 15:38 36.7 87 18 124/73 95 Room Air Physical Exam: General- no distress Neck- no JVD Lungs- diffuse mild wheezing Heart- RRR Abdomen- + BS, soft, nontender Extremities- no pretibial edema or calf tenderness Neuro- alert, mild confused (oriented to person and hospital, has some insight regarding her circumstances) . Assessment & Plan SEPSIS / UTI Met criteria for sepsis per 2001 definition and current CMS guidelines. (Fever, tachycardia, leukocytosis, altered mental status.) Serum lactate 0.71. Hemodynamically stable. Renal US negative for stones / hydronephrosis. Blood and urine cultures grew E coli, sensitive to everything but ampicillin. Received ceftriaxone x 3 doses; transition to oral therapy with cephalexin to complete 10 day course of antibiotic therapy. ALTERED MENTAL STATUS Encephalopathy secondary to infection. Improved. HYPERTENSION Continue metoprolol. CEREBROVASCULAR DISEASE History stroke left basal ganglia 2009. Continue aspirin, statin. ASTHMA Mild wheezing. Continue bronchodilators. HYPOTHYROIDISM TSH 0.329. Continue levothyroxine. DEMENTIA reports problems with memory for some time. Monitor for delirium. VTE PROPHYLAXIS SQ enoxaparin. Ambulate. DISPOSITION May need skilled care or inpatient rehab. Case Management consulted. considering options. Medical follow-up with Bouchra Skinner MD ([facility]). visited this afternoon and given update. . Current Inpatient Medications: Current Inpatient Medications Medications (Trade) Dose Ordered Sig/Mak Route Start Time Stop Time Status Last Admin Dose Admin Aspirin (Ecotrin Tab) 81 mg DAILY PO 11/26/16 09:00 12/26/16 08:59 11/29/16 08:02 81 MG Atorvastatin Calcium (Lipitor Tab) 40 mg DAILY PO 11/26/16 09:00 12/26/16 08:59 11/29/16 08:02 40 MG Levothyroxine Sodium (Synthroid Tab) 100 mcg DAILYBB PO 11/26/16 06:00 12/26/16 05:59 11/29/16 06:18 100 MCG Lisinopril (Zestril Tab) 10 mg DAILY PO 11/26/16 09:00 12/26/16 08:59 11/29/16 08:02 10 MG Metoprolol Succinate (Toprol Xl Tab) 50 mg DAILY PO 11/26/16 09:00 12/26/16 08:59 11/29/16 08:02 50 MG Oxybutynin Chloride (Ditropan-Xl Tab) 5 mg DAILY PO 11/26/16 09:00 12/26/16 08:59 11/29/16 08:02 5 MG Enoxaparin Sodium (Lovenox Inj) 40 mg DAILY SQ 11/26/16 09:00 12/26/16 08:59 11/29/16 08:03 40 MG Latanoprost (Xalatan Oph Soln) 1 drops HS OPB 11/26/16 21:00 12/26/16 20:59 11/29/16 20:32 1 DROPS Albuterol/ Ipratropium (Combivent Respimat Inh) 1 puffs QID INH 11/27/16 13:00 12/27/16 12:59 11/29/16 20:32 1 PUFFS Albuterol/ Ipratropium (Duoneb) 3 ml Q2H PRN INH 11/27/16 07:15 12/26/16 07:59 Cephalexin Monohydrate (Keflex Cap) 500 mg TID PO 11/28/16 14:00 12/08/16 13:59 11/29/16 20:32 500 MG Polyethylene (Miralax Powder Packet) 17 gm BID PO 11/28/16 20:00 12/28/16 19:59 11/29/16 20:32 17 GM
[2016-11-29 23:59] VITALS: BP 149/75; PULSE 69; TEMP 36.6; O2SAT 95
[2016-11-30] VITALS: O2SAT 95
[2016-11-30] MEDS: LEVOTHYROXINE 100 MCG TAB PO SCH (06:01)
[2016-11-30 07:18] VITALS: BP 163/76; PULSE 66; TEMP 36.5; O2SAT 92
[2016-11-30] MEDS: CEPHALEXIN MONOHYDRATE 500 MG CAP PO SCH ×3 (07:55→19:44)
[2016-11-30] MEDS: LISINOPRIL 10 MG TAB PO SCH (07:55)
[2016-11-30] MEDS: OXYBUTYNIN CHLORIDE 5 MG TABCR PO SCH (07:55)
[2016-11-30] MEDS: ATORVASTATIN 40 MG TAB PO SCH (07:55)
[2016-11-30] MEDS: METOPROLOL SUCC 50MG EXT REL TAB PO SCH (07:55)
[2016-11-30] MEDS: ASPIRIN 81 MG ECTAB PO SCH (07:55)
[2016-11-30] MEDS: IPRATROPIUM BROMIDE/ALBUTEROL respimat INH INH SCH ×4 (07:56→19:44)
[2016-11-30] MEDS: POLYETHYLENE (MIRALAX) 17 GM PACK PO SCH ×2 (07:56→19:44)
[2016-11-30] MEDS: ENOXAPARIN 40 MG/0.4 ML SYR SQ SCH (07:57)
[2016-11-30 15:01] VITALS: BP 120/72; PULSE 75; TEMP 36.4; O2SAT 94
--- NOTE | 2016-11-30 19:02 | Progress Note ---
Medicine Progress Note Date & Time of Visit: November 30, 2016 at 11:30 . Subjective No new concerns. Afebrile. No cough or SOB. No anginal symptoms. No nausea, vomiting, diarrhea. No dysuria. Still requires assistance with ambulation. . Objective Last 8 Hrs Date Time Temp Pulse Resp B/P Pulse Ox O2 Delivery O2 Flow Rate FiO2 11/30/16 15:15 Room Air 11/30/16 15:01 36.4 75 20 120/72 94 Room Air Physical Exam: General- lying in bed, no distress Neck- no JVD Lungs- diffuse minimal wheezing Heart- RRR Abdomen- + BS, soft, nontender Extremities- no pretibial edema or calf tenderness Neuro- alert, mild confusion . Assessment & Plan SEPSIS / UTI Met criteria for sepsis per 2001 definition and current CMS guidelines. (Fever, tachycardia, leukocytosis, altered mental status.) Serum lactate 0.71. Hemodynamically stable. Renal US negative for stones / hydronephrosis. Blood and urine cultures grew E coli, sensitive to everything but ampicillin. Received ceftriaxone x 3 doses; transition to oral therapy with cephalexin to complete 10 day course of antibiotic therapy. ALTERED MENTAL STATUS Encephalopathy secondary to infection. Improved. HYPERTENSION BP this morning 163/76. Continue metoprolol. CEREBROVASCULAR DISEASE History stroke left basal ganglia 2009. Continue aspirin, statin. ASTHMA Mild wheezing. Continue bronchodilators. HYPOTHYROIDISM TSH 0.329. Continue levothyroxine. DEMENTIA reports problems with memory for some time. Monitor for delirium. VTE PROPHYLAXIS SQ enoxaparin. Ambulate. DISPOSITION May need skilled care or inpatient rehab. Case Management consulted. considering options. Medical follow-up with Bouchra Skinner MD ([facility] given update by phone. . Current Inpatient Medications: Current Inpatient Medications Medications (Trade) Dose Ordered Sig/Mak Route Start Time Stop Time Status Last Admin Dose Admin Aspirin (Ecotrin Tab) 81 mg DAILY PO 11/26/16 09:00 12/26/16 08:59 11/30/16 07:55 81 MG Atorvastatin Calcium (Lipitor Tab) 40 mg DAILY PO 11/26/16 09:00 12/26/16 08:59 11/30/16 07:55 40 MG Levothyroxine Sodium (Synthroid Tab) 100 mcg DAILYBB PO 11/26/16 06:00 12/26/16 05:59 11/30/16 06:01 100 MCG Lisinopril (Zestril Tab) 10 mg DAILY PO 11/26/16 09:00 12/26/16 08:59 11/30/16 07:55 10 MG Metoprolol Succinate (Toprol Xl Tab) 50 mg DAILY PO 11/26/16 09:00 12/26/16 08:59 11/30/16 07:55 50 MG Oxybutynin Chloride (Ditropan-Xl Tab) 5 mg DAILY PO 11/26/16 09:00 12/26/16 08:59 11/30/16 07:55 5 MG Enoxaparin Sodium (Lovenox Inj) 40 mg DAILY SQ 11/26/16 09:00 12/26/16 08:59 11/30/16 07:57 40 MG Latanoprost (Xalatan Oph Soln) 1 drops HS OPB 11/26/16 21:00 12/26/16 20:59 11/29/16 20:32 1 DROPS Albuterol/ Ipratropium (Combivent Respimat Inh) 1 puffs QID INH 11/27/16 13:00 12/27/16 12:59 11/30/16 16:44 1 PUFFS Albuterol/ Ipratropium (Duoneb) 3 ml Q2H PRN INH 11/27/16 07:15 12/26/16 07:59 Cephalexin Monohydrate (Keflex Cap) 500 mg TID PO 11/28/16 14:00 12/08/16 13:59 11/30/16 12:57 500 MG Polyethylene (Miralax Powder Packet) 17 gm BID PO 11/28/16 20:00 12/28/16 19:59 11/30/16 07:56 17 GM
[2016-11-30] MEDS: LATANOPROST 0.005% OP SOLN 2.5 ML BTL OPB SCH (19:44)
[2016-11-30 20:00] VITALS: O2SAT 95
[2016-11-30 22:57] VITALS: BP 137/77; PULSE 74; TEMP 36.7; O2SAT 96
[2016-12-01] VITALS: O2SAT 95
[2016-12-01 06:11] LABS: CREATININE 1.1 mg/dl (0.60-1.20)
[2016-12-01] MEDS: LEVOTHYROXINE 100 MCG TAB PO SCH (06:11)
[2016-12-01 07:16] VITALS: BP 158/76; PULSE 71; TEMP 36.5; O2SAT 95
[2016-12-01] MEDS: IPRATROPIUM BROMIDE/ALBUTEROL respimat INH INH SCH ×4 (08:00→20:17)
[2016-12-01] MEDS: LISINOPRIL 10 MG TAB PO SCH (08:01)
[2016-12-01] MEDS: ASPIRIN 81 MG ECTAB PO SCH (08:01)
[2016-12-01] MEDS: METOPROLOL SUCC 50MG EXT REL TAB PO SCH (08:01)
[2016-12-01] MEDS: OXYBUTYNIN CHLORIDE 5 MG TABCR PO SCH (08:01)
[2016-12-01] MEDS: POLYETHYLENE (MIRALAX) 17 GM PACK PO SCH ×2 (08:02→20:17)
[2016-12-01] MEDS: CEPHALEXIN MONOHYDRATE 500 MG CAP PO SCH ×3 (08:02→20:17)
[2016-12-01] MEDS: ATORVASTATIN 40 MG TAB PO SCH (08:02)
[2016-12-01] MEDS: ENOXAPARIN 40 MG/0.4 ML SYR SQ SCH (08:03)
--- NOTE | 2016-12-01 09:05 | Progress Note ---
Medicine Progress Note Date & Time of Visit: December 01, 2016 at 08:00 . Subjective No problems last night. No fever or chills. No chest pain. No cough or SOB. No nausea or vomiting. Last reported bowel movement 11/29. No dysuria. . Objective Last 8 Hrs Date Time Temp Pulse Resp B/P Pulse Ox O2 Delivery O2 Flow Rate FiO2 12/01/16 08:19 Room Air 12/01/16 07:16 36.5 71 16 158/76 95 Room Air Physical Exam: General- no distress Neck- no JVD Lungs- mild wheezing Heart- RRR Abdomen- + BS, soft, nontender Extremities- no pretibial edema or calf tenderness Neuro- alert, mild confusion . Laboratory Results: Last 24 Hours Test 12/01/16 05:15 Creatinine 1.10 mg/dl Est Creatinine Clear Calc Drug Dose 42.4 ml/min Estimated GFR () 53.4 Estimated GFR (Non- 46.1 Assessment & Plan SEPSIS / UTI Met criteria for sepsis per 2001 definition and current CMS guidelines. (Fever, tachycardia, leukocytosis, altered mental status.) Serum lactate 0.71. Hemodynamically stable. Renal US negative for stones / hydronephrosis. Blood and urine cultures grew E coli, sensitive to everything but ampicillin. Received ceftriaxone x 3 doses; transitioned to oral therapy with cephalexin to complete 10 day course of antibiotic therapy (today is day # 6 / 10). ALTERED MENTAL STATUS Encephalopathy secondary to infection. Improved. HYPERTENSION BP this morning 158/76. Continue metoprolol. CEREBROVASCULAR DISEASE History stroke left basal ganglia 2009. Continue aspirin, statin. ASTHMA Mild wheezing. Continue bronchodilators. HYPOTHYROIDISM TSH 0.329. Continue levothyroxine. DEMENTIA reports problems with memory for some time. Monitor for delirium. VTE PROPHYLAXIS SQ enoxaparin. Ambulate. DISPOSITION May need skilled care or inpatient rehab. Case Management consulted. considering options. Medical follow-up with Bouchra Skinner MD ([facility]). . Current Inpatient Medications: Current Inpatient Medications Medications (Trade) Dose Ordered Sig/Mak Route Start Time Stop Time Status Last Admin Dose Admin Aspirin (Ecotrin Tab) 81 mg DAILY PO 11/26/16 09:00 12/26/16 08:59 12/01/16 08:01 81 MG Atorvastatin Calcium (Lipitor Tab) 40 mg DAILY PO 11/26/16 09:00 12/26/16 08:59 12/01/16 08:02 40 MG Levothyroxine Sodium (Synthroid Tab) 100 mcg DAILYBB PO 11/26/16 06:00 12/26/16 05:59 12/01/16 06:11 100 MCG Lisinopril (Zestril Tab) 10 mg DAILY PO 11/26/16 09:00 12/26/16 08:59 12/01/16 08:01 10 MG Metoprolol Succinate (Toprol Xl Tab) 50 mg DAILY PO 11/26/16 09:00 12/26/16 08:59 12/01/16 08:01 50 MG Oxybutynin Chloride (Ditropan-Xl Tab) 5 mg DAILY PO 11/26/16 09:00 12/26/16 08:59 12/01/16 08:01 5 MG Enoxaparin Sodium (Lovenox Inj) 40 mg DAILY SQ 11/26/16 09:00 12/26/16 08:59 12/01/16 08:03 40 MG Latanoprost (Xalatan Oph Soln) 1 drops HS OPB 11/26/16 21:00 12/26/16 20:59 11/30/16 19:44 1 DROPS Albuterol/ Ipratropium (Combivent Respimat Inh) 1 puffs QID INH 11/27/16 13:00 12/27/16 12:59 12/01/16 08:00 1 PUFFS Albuterol/ Ipratropium (Duoneb) 3 ml Q2H PRN INH 11/27/16 07:15 12/26/16 07:59 Cephalexin Monohydrate (Keflex Cap) 500 mg TID PO 11/28/16 14:00 12/08/16 13:59 12/01/16 08:02 500 MG Polyethylene (Miralax Powder Packet) 17 gm BID PO 11/28/16 20:00 12/28/16 19:59 12/01/16 08:02 17 GM
[2016-12-01 14:44] VITALS: BP 99/64; PULSE 72; TEMP 36.6; O2SAT 93
[2016-12-01] MEDS: LATANOPROST 0.005% OP SOLN 2.5 ML BTL OPB SCH (20:17)
[2016-12-01 23:03] VITALS: BP 125/71; PULSE 67; TEMP 36.6; O2SAT 94
[2016-12-02] MEDS: LEVOTHYROXINE 100 MCG TAB PO SCH (05:46)
[2016-12-02] MEDS ORDERED: KFL500 PO (07:13)
--- NOTE | 2016-12-02 07:20 | Discharge Instructions ---
Discharge Instructions Date of Service December 02, 2016. Admission Reason for Admission: sepsis, UTI . Discharge Discharge Diagnosis / Problem: sepsis, UTI Discharge Goals Goal(s): Improve function, Improve disease control Activity Recommendations Activity Level: Assistance Required Therapies: Physical Therapy, Occupational Therapy . Additional Information Patient informed of condition: Yes Advance Directives: No DNR: No Level of Care: Skilled Communicable Disease: No Prognosis: Improving De Oliveira Catheter: No Instructions / Follow-Up Instructions / Follow-Up APPOINTMENTS: FAMILY MEDICINE Bouchra Skinner MD ([facility]) Please arrange for follow-up appointment after discharge from your facility. Thank you for receiving this patient in transfer. Please call if you have any questions. Stevan Gilliam . . Current Hospital Diet Patient's current hospital diet: AHA Diet (Heart Healthy) Discharge Diet Recommended Diet: AHA Diet (Heart Healthy) Pending Studies Studies pending at discharge: no Physician Orders On Transfer Special Precautions: fall precautions . Vital Signs: routine . Weigh: routine . Additional Orders: incontinence pads prompted voiding . POLST Discussion: without POLST completion Medical Emergencies . Who to Call and When: Medical Emergencies: If at any time you feel your situation is an emergency, please call 911 immediately. . Non-Emergent Contact Non-Emergency issues call your: Primary Care Provider . . "Provider Documentation" section prepared by Stevan Gilliam. . Core Measure Problem Core Measures: None
[2016-12-02 07:49] VITALS: BP 178/71; PULSE 67; TEMP 36.6; O2SAT 95
[2016-12-02] MEDS: CEPHALEXIN MONOHYDRATE 500 MG CAP PO SCH (09:14)
[2016-12-02] MEDS: OXYBUTYNIN CHLORIDE 5 MG TABCR PO SCH (09:14)
[2016-12-02] MEDS: ASPIRIN 81 MG ECTAB PO SCH (09:14)
[2016-12-02] MEDS: LISINOPRIL 10 MG TAB PO SCH (09:14)
[2016-12-02] MEDS: ATORVASTATIN 40 MG TAB PO SCH (09:14)
[2016-12-02] MEDS: METOPROLOL SUCC 50MG EXT REL TAB PO SCH (09:14)
[2016-12-02] MEDS: ENOXAPARIN 40 MG/0.4 ML SYR SQ SCH (09:15)
[2016-12-02] MEDS: IPRATROPIUM BROMIDE/ALBUTEROL respimat INH INH SCH ×2 (09:15→12:18)
[2016-12-02] MEDS: POLYETHYLENE (MIRALAX) 17 GM PACK PO SCH (09:16)
[2016-12-02 09:56] VITALS: BP 178/71; PULSE 67; TEMP 36.6; O2SAT 95
--- NOTE | 2016-12-02 10:39 | Progress Note ---
Medicine Progress Note Date & Time of Visit: December 02, 2016 at 09:50 . Subjective Doing well. No fever, chills, sweats. No CP, cough, SOB. No nausea, vomiting, diarrhea. No dysuria. Chronic urinary incontinence. . Objective Last 8 Hrs Date Time Temp Pulse Resp B/P Pulse Ox O2 Delivery O2 Flow Rate FiO2 12/02/16 09:56 36.6 67 16 95 Room Air 12/02/16 07:49 36.6 67 16 178/71 95 Physical Exam: General- no distress Neck- no JVD Lungs- mild diffuse wheezing Heart- RRR Abdomen- + BS, soft, nontender Extremities- no pretibial edema or calf tenderness Neuro- alert, mild confusion . Assessment & Plan SEPSIS / UTI Presented with fever and altered mental status. Met criteria for sepsis per 2001 definition and current CMS guidelines. (Fever, tachycardia, leukocytosis, altered mental status.) Serum lactate 0.71. Hemodynamically stable. UA showed nitrates, leukocyte esterase, many WBC's, and bacteria. Renal US negative for stones / hydronephrosis. Blood and urine cultures grew E coli, sensitive to everything but ampicillin. Received ceftriaxone x 3 doses; transitioned to oral therapy with cephalexin to complete 10 day course of antibiotic therapy (today is day # 7 / 10). ALTERED MENTAL STATUS Encephalopathy secondary to infection. Cognitive status back to baseline. HYPERTENSION BP fluctuates, but generally fairly well-controlled. Continue metoprolol. Follow and titrate Rx. CEREBROVASCULAR DISEASE History stroke left basal ganglia 2009. Continue aspirin, statin. CAROTID ARTERY DISEASE Had not had carotid duplex for several years and requested f/u study. Bilateral plaque noted with moderate stenosis of bilateral external carotids but no significant stenosis of internal carotids. No indications for surgical intervention. Continue aspirin, statin. ASTHMA Mild intermittent wheezing. Continue bronchodilators. HYPOTHYROIDISM TSH 0.329. Continue levothyroxine. DEMENTIA reports problems with memory for some time. Probable early dementia. Avoid meds with anticholinergic side-effects. Monitor for delirium. VTE PROPHYLAXIS SQ enoxaparin- continue until ambulatory. Ambulating with assistance. DISPOSITION Unable to return home at this time due to her functional status. Case Management consulted. Arrangements being made for transfer to [facility] for skilled care. Expected return to home when functional status improved. Medical follow-up with Bouchra Skinner MD ([facility]). . Current Inpatient Medications: Current Inpatient Medications Medications (Trade) Dose Ordered Sig/Mak Route Start Time Stop Time Status Last Admin Dose Admin Aspirin (Ecotrin Tab) 81 mg DAILY PO 11/26/16 09:00 12/26/16 08:59 12/02/16 09:14 81 MG Atorvastatin Calcium (Lipitor Tab) 40 mg DAILY PO 11/26/16 09:00 12/26/16 08:59 12/02/16 09:14 40 MG Levothyroxine Sodium (Synthroid Tab) 100 mcg DAILYBB PO 11/26/16 06:00 12/26/16 05:59 12/02/16 05:46 100 MCG Lisinopril (Zestril Tab) 10 mg DAILY PO 11/26/16 09:00 12/26/16 08:59 12/02/16 09:14 10 MG Metoprolol Succinate (Toprol Xl Tab) 50 mg DAILY PO 11/26/16 09:00 12/26/16 08:59 12/02/16 09:14 50 MG Oxybutynin Chloride (Ditropan-Xl Tab) 5 mg DAILY PO 11/26/16 09:00 12/26/16 08:59 12/02/16 09:14 5 MG Enoxaparin Sodium (Lovenox Inj) 40 mg DAILY SQ 11/26/16 09:00 12/26/16 08:59 12/02/16 09:15 40 MG Latanoprost (Xalatan Oph Soln) 1 drops HS OPB 11/26/16 21:00 12/26/16 20:59 12/01/16 20:17 1 DROPS Albuterol/ Ipratropium (Combivent Respimat Inh) 1 puffs QID INH 11/27/16 13:00 12/27/16 12:59 12/02/16 09:15 1 PUFFS Albuterol/ Ipratropium (Duoneb) 3 ml Q2H PRN INH 11/27/16 07:15 12/26/16 07:59 Cephalexin Monohydrate (Keflex Cap) 500 mg TID PO 11/28/16 14:00 12/08/16 13:59 12/02/16 09:14 500 MG Polyethylene (Miralax Powder Packet) 17 gm BID PO 11/28/16 20:00 12/28/16 19:59 12/02/16 09:16 17 GM
--- NOTE | 2016-12-02 10:47 | Discharge Summary ---
Discharge Summary Date of Service December 02, 2016. Discharge Summary Admission Date: November 25, 2016 at 21:05 Discharge Date: December 02, 2016 Discharge Disposition: [facility] facility ([facility]) Principal Diagnosis: sepsis due to urinary tract infection with E coli encephalopathy secondary to sepsis . 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 Procedures: CT head CTA chest venous duplex lower extremities US kidneys carotid duplex . Medication Reconciliation New Medications: Cephalexin Monohydrate (Cephalexin) 500 Mg Cap 500 MG PO TID, #9 CAP Continued Medications: Albuterol Sulf (Proventil 0.083% 2.5MG/3ML) 2.5 Mg/3 Ml Nebu 2.5 MG INH QID PRN for SOB/Wheezing, EA Albuterol Sulfate (Proair Respiclick) 108 Mcg/Act Aer 2 PUFFS INH QID PRN for SOB/Wheezing Aspirin (Aspirin Ec) 81 Mg Tab 81 MG PO DAILY Atorvastatin (Atorvastatin Calcium) 40 Mg Tab 40 MG PO DAILY Latanoprost (Latanoprost) 37 Drops/2.5 Ml Soln 1 DROP OPB HS Levothyroxine Sodium (Levothyroxine Sodium) 100 Mcg Tab 100 MCG PO DAILY Lisinopril (Lisinopril) 10 Mg Tab 10 MG PO DAILY Metoprolol Succinate (Metoprolol Succinate ER) 50 Mg Tabcr 50 MG PO DAILY Oxybutynin Chloride (Oxybutynin Chloride Er) 5 Mg Tab 5 MG PO DAILY for 90 Days, #90 TAB 3 Refills Admission Information HPI (per Admitting provider): Patient is a 86 r old female with PMH of CVA, HTN, S/P Pacemaker, Asthma and Overactive bladder presents with history of a brief episode of disorientation, shaky tremor, fever, increased urinary frequency and trouble ambulating since one day duration. Patient is slow to respond which is her baseline per her daughter and most of the history is obtained from patient's daughter. No history of fall or head trauma was given. Her daughter informs that for a brief period this morning, patient could not recognize her daughter and thought it was her sister and currently she is oriented to her baseline per family. She was also not able to ambulate well while trying to get to the hospital secondary to weakness per daughter. Reports history of progressive weakness and ambulatory issues for which she has been going to outpatient physical therapy. Patient states "I am not feeling my self today". Denies any history of speech problems, blurry vision, vertigo, headache, chest pain, SOB, nausea, abd pain bt states having chronic cough and wheezing secondary to asthma. Also reports chronic urinary incontinence, increased urinary frequency since last few days but denies burning micturition. . Physical Exam (per Admitting): General Appearance: WD/WN, no apparent distress, + pertinent finding (Slow to respond) Head: normocephalic, atraumatic Eyes: normal inspection, PERRL ENT: hearing grossly normal Neck: supple, trachea midline Respiratory/Chest: chest non-tender, lungs clear, normal breath sounds, no respiratory distress, no accessory muscle use Cardiovascular: regular rate, rhythm, no murmur, + pertinent finding (Trace edema) Abdomen/GI: normal bowel sounds, non tender, soft Back: normal inspection Extremities/Musculoskelatal: normal inspection, + pertinent finding (Trace edema) Neurologic/Psych: section repairer II-XII nml as tested, no motor/sensory deficits, alert , normal mood/affect, oriented x 3 Skin: normal color, warm/dry Hospital Course SEPSIS / UTI Presented with fever and altered mental status. Met criteria for sepsis per 2001 definition and current CMS guidelines. (Fever, tachycardia, leukocytosis, altered mental status.) Serum lactate 0.71. Hemodynamically stable. UA showed nitrates, leukocyte esterase, many WBC's, and bacteria. Renal US negative for stones / hydronephrosis. Blood and urine cultures grew E coli, sensitive to everything but ampicillin. Received ceftriaxone x 3 doses; transitioned to oral therapy with cephalexin to complete 10 day course of antibiotic therapy (today is day # 7 / 10). ALTERED MENTAL STATUS Encephalopathy secondary to infection. Cognitive status back to baseline. HYPERTENSION BP fluctuates, but generally fairly well-controlled. Continue metoprolol. Follow and titrate Rx. CEREBROVASCULAR DISEASE History stroke left basal ganglia 2009. Continue aspirin, statin. CAROTID ARTERY DISEASE Had not had carotid duplex for several years and requested f/u study. Bilateral plaque noted with moderate stenosis of bilateral external carotids but no significant stenosis of internal carotids. No indications for surgical intervention. Continue aspirin, statin. ASTHMA Mild intermittent wheezing. Continue bronchodilators. HYPOTHYROIDISM TSH 0.329. Continue levothyroxine. DEMENTIA reports problems with memory for some time. Probable early dementia. Avoid meds with anticholinergic side-effects. Monitor for delirium. ELEVATED D-DIMER CTA chest negative for PE. Venous duplex lower extremities negative for DVT. VTE PROPHYLAXIS SQ enoxaparin- continue until ambulatory. Ambulating with assistance. DISPOSITION Unable to return home at this time due to her functional status. Case Management consulted. Arrangements being made for transfer to [facility] skilled care. Expected return to home when functional status improved. Medical follow-up with Bouchra Skinner MD ([facility]). . Total time spent on discharge = 45 min. This includes examination of the patient, discharge planning, medication reconciliation, and communication with other providers. . Discharge Instructions Date of Service December 02, 2016. Admission Reason for Admission: sepsis, UTI . Discharge Discharge Diagnosis / Problem: sepsis, UTI Discharge Goals Goal(s): Improve function, Improve disease control Activity Recommendations Activity Level: Assistance Required Therapies: Physical Therapy, Occupational Therapy . Additional Information Patient informed of condition: Yes Advance Directives: No DNR: No Level of Care: Skilled Communicable Disease: No Prognosis: Improving De Oliveira Catheter: No Instructions / Follow-Up Instructions / Follow-Up APPOINTMENTS: FAMILY MEDICINE Bouchra Skinner MD ([facility]) Please arrange for follow-up appointment after discharge from your facility. Thank you for receiving this patient in transfer. Please call if you have any questions. Stevan Gilliam . . Current Hospital Diet Patient's current hospital diet: AHA Diet (Heart Healthy) Discharge Diet Recommended Diet: AHA Diet (Heart Healthy) Pending Studies Studies pending at discharge: no Physician Orders On Transfer Special Precautions: fall precautions . Vital Signs: routine . Weigh: routine . Additional Orders: incontinence pads prompted voiding . POLST Discussion: without POLST completion Medical Emergencies . Who to Call and When: Medical Emergencies: If at any time you feel your situation is an emergency, please call 911 immediately. . Non-Emergent Contact Non-Emergency issues call your: Primary Care Provider . . "Provider Documentation" section prepared by Stevan Gilliam. . Core Measure Problem Core Measures: None . Additional Copies To Bouchra Skinner M.D.; Bouchra Skinner M.D.
== END 2016-12-02 13:26 | DRG 871 ==
LOC: ENRESERVTM → ENRESERVDT → EDBD 16:52 → C.EDA 16:55 → C.2T 21:05 → C.MS2W 11-27 13:19 → C.4E 11-27 22:55
PROVIDERS: ADMIT Internal Medicine; ATTEND Hospitalist
DX: A41.51 Sepsis due to Escherichia coli [E. coli] (principal); G93.41 Metabolic encephalopathy; N39.0 Urinary tract infection, site not specified; J96.01 Acute respiratory failure with hypoxia; R65.20 Severe sepsis without septic shock; J45.909 Unspecified asthma, uncomplicated; I10 Essential (primary) hypertension; E03.9 Hypothyroidism, unspecified; I08.1 Rheumatic disorders of both mitral and tricuspid valves; Z96.659 Presence of unspecified artificial knee joint; N32.81 Overactive bladder; Z95.0 Presence of cardiac pacemaker; R32 Unspecified urinary incontinence; F03.90 Unspecified dementia, unspecified severity, without behavioral disturbance, psychotic disturbance, mood disturbance, and anxiety

== ENCOUNTER → 2017-01-02 | Outpatient (CLI) | payer OTHER ==
[~2017-01-02] MED LIST changes: +ALBINS/ INH; +ALBU18002 INH; -ALBU1AER9 INH; +KFL500 PO; +OXYB5TAB PO
[2017-01-02 08:54] LABS: BLOOD UREA NITROGEN 23 mg/dl (7-18); BUN/CREATININE RATIO 21.3 (10-20); CARBON DIOXIDE 29 mmol/L (21-32); CHLORIDE 105 mmol/L (98-107); GLUCOSE 98 mg/dl (70-99); POTASSIUM 4.3 mmol/L (3.5-5.1); SODIUM 141 mmol/L (136-145)
[2017-01-02 08:57] LABS: CALCIUM 9.2 mg/dl (8.5-10.1)
== END ==
LOC: C.LABCC 07:45 → EDSTATUS 01-15 08:00
PROVIDERS: ATTEND Internal Medicine
DX: N28.9 Disorder of kidney and ureter, unspecified (principal)

== ENCOUNTER 2017-11-04 21:27 | Inpatient (IN) | payer OTHER ==
[~2017-11-04] VITALS: Ht 167.6 cm; Wt 90.6 kg
[2017-11-04] MEDS ORDERED: ALBUT/IPRATROP 3MG/0.5MG NEB 3 ML VIAL INH STA (21:50)
[2017-11-04] MEDS ORDERED: NITROGLYCERIN 2% OINTMENT 30GM TUBE EXT ONE (22:00)
[2017-11-04 22:03] VITALS: PULSE 105; O2SAT 99
--- NOTE | 2017-11-04 22:22 | EMERGENCY ROOM VISIT NOTE ---
History Report prepared by Venus: Franco Delacruz Under the Supervision of: Dr. Nicolás Mcmullen M.D. First contact with patient: 21:45 Chief Complaint: SHORTNESS OF BREATH Stated Complaint: SOB History of Present Illness The patient is a 87 year old female who presents to the Emergency Room with complaints of worsened shortness of breath that started yesterday. Per nursing, the patient has been residing at [facility] since September due to a history of CHF. Their staff noted that the patient has had increased shortness of breath since yesterday. The staff administered a breathing treatment at 1500 and Solu- Medrol today. The patient currently reports that she is not short of breath with oxygen administration. She denies a history of asthma, and emphysema. Per the nursing report, her Lasix was increased yesterday. She denies chest pain or fever. Source of History: patient, nursing staff Onset: yesterday Position: other (global) Quality: other (global) Timing: worsening Modifying Factors (Relieving): other (oxygen administration, solumedrol) Review of Systems See HPI for pertinent positives & negatives. A total of 10 systems reviewed and were otherwise negative. Past Medical & Surgical Medical Problems: (1) Asthma (2) Carotid artery disease (3) Cerebrovascular disease (4) Dementia (5) Hypertension (6) Hypothyroidism (7) Knee Joint Replacement Status (8) Mitral Valve Disorder (9) Thoracic Disc Degen (10) Tricuspid Valve Disease (11) Urinary incontinence Surgical Problems: (1) S/P placement of cardiac pacemaker Family History Cancer Diabetes mellitus Heart disease Social History Smoking Status: Never Smoker Drug Use: none Marital Status: Housing Status: lives with family Occupation Status: retired Current/Historical Medications Scheduled Aspirin (Aspirin Ec), 81 MG PO DAILY Atorvastatin (Lipitor), 40 MG PO DAILY Cephalexin Monohydrate (Cephalexin), 500 MG PO TID Digoxin (Digoxin), 0.125 MG PO DAILY Diltiazem Hcl Ext Rel (Tiazac), 120 MG PO DAILY Furosemide (Lasix), 20 MG PO DAILY Ipratropium [place] (Ipratropium [place]), 1 VIAL NEB Q4 Latanoprost (Latanoprost), 1 DROP OPB HS Levofloxacin (Levofloxacin), 250 MG PO DAILY Levothyroxine Sodium (Levothyroxine Sodium), 88 MCG PO DAILY Lisinopril (Lisinopril), 10 MG PO DAILY Methylprednisolone (Medrol), 16 MG PO DIRECTED Metoprolol Succinate (Metoprolol Succinate ER), 50 MG PO DAILY Oxybutynin Chloride (Oxybutynin Chloride Er), 5 MG PO DAILY Pantoprazole (Protonix), 40 MG PO DAILY Potassium Ext Rel (Klor-Con), 20 MEQ PO DAILY Scheduled PRN Acetaminophen (Tylenol), 1 TAB PO Q4 PRN for Pain or Fever Albuterol Sulf (Proventil 0.083% 2.5MG/3ML), 2.5 MG INH QID PRN for SOB/Wheezing Albuterol Sulfate (Proair Respiclick), 2 PUFFS INH QID PRN for SOB/Wheezing Docusate Sodium (Docusate Sodium), 100 MG PO BID PRN for constipation Magnesium Hydroxide (Milk Of Magnesia), 30 ML PO DAILY PRN for constipation Allergies Coded Allergies: Adhesives (Verified Allergy, Unknown, RXN TO TAPE, 11/04/17) Penicillins (Verified Allergy, Unknown, RXN TO AMOXICILLIN, 11/04/17) Physical Exam Vital Signs Date Time Temp Pulse Resp B/P (MAP) Pulse Ox O2 Delivery O2 Flow Rate FiO2 11/05/17 00:00 85 16 93 BiPAP 11/04/17 23:03 121/87 11/04/17 23:03 102 18 121/87 94 Room Air 11/04/17 23:00 94 25 94 BiPAP 11/04/17 22:35 115 99 40 11/04/17 22:18 BiPAP 40 11/04/17 22:18 97 BiPAP 11/04/17 22:03 105 22 99 BiPAP/CPAP 40 11/04/17 21:45 101 11/04/17 21:42 100 Non-Rebreather 11/04/17 21:38 36.8 102 24 160/115 100 Non-Rebreather Physical Exam GENERAL: Patient is in mild distress. HEENT: No acute trauma, normocephalic atraumatic, mucous membranes moist, no nasal congestion, no scleral icterus. NECK: No stridor, no adenopathy, no meningismus, trachea is midline. LUNGS: Mild respiratory distress. Equal breath sounds. Wheezing and crackles bilaterally. HEART: Irregular rhythm. Mildly tachycardic. No murmurs. ABDOMEN: Soft, nontender, bowel sounds positive, no hernias, no peritonitis. EXTREMITIES: No cyanosis. Mild bilateral pedal edema, full range of motion of all the joints without pain or difficulty, no signs for acute trauma. NEUROLOGIC: No acute motor or sensory deficits, no focal weakness. Awake but somewhat sleepy. SKIN: No rash, no jaundice, no diaphoresis. Medical Decision & Procedures ER Provider Diagnostic Interpretation: Radiology results as stated below per my review and radiologist interpretation: CHEST ONE VIEW PORTABLE HISTORY: 87 years-old Female EVALUATE RESPIRATORY DISTRESS.DYSPNEA acute respiratory distress COMPARISON: Chest radiograph 11/25/2016 TECHNIQUE: Portable AP view of the chest FINDINGS: Cardiac silhouette is again mildly enlarged, unchanged. Atherosclerosis of the aorta. Left subclavian pacer appears unchanged. Linear subsegmental bibasilar opacities suggest atelectasis/scarring. No pneumothorax, large pleural effusion, lobar airspace consolidation or overt pulmonary edema. Degenerative changes are seen within the shoulders and spine. IMPRESSION: Cardiomegaly without acute process. The above report was generated using voice recognition software. It may contain grammatical, syntax or spelling errors. Electronically signed by: Evert Tellez M.D. 11/04/2017 10:46 PM Dictated Date/Time: 11/04/2017 10:44 PM Laboratory Results 11/04/17 22:48 Red Blood Count 4.44, Mean Corpuscular Volume 96.4, Mean Corpuscular Hemoglobin 32.0, Mean Corpuscular Hemoglobin Concent 33.2, Mean Platelet Volume 8.5, Neutrophils (%) (Auto) 95.2, Lymphocytes (%) (Auto) 3.4, Monocytes (%) (Auto) 0.9, Eosinophils (%) (Auto) 0.0, Basophils (%) (Auto) 0.1, Neutrophils # (Auto) 7.28, Lymphocytes # (Auto) 0.26, Monocytes # (Auto) 0.07, Eosinophils # (Auto) 0.00, Basophils # (Auto) 0.01 11/04/17 22:48 Test 11/04/17 22:48 11/05/17 00:51 White Blood Count 7.65 K/uL (4.8-10.8) Red Blood Count 4.44 M/uL (4.2-5.4) Hemoglobin 14.2 g/dL (12.0-16.0) Hematocrit 42.8 % (37-47) Mean Corpuscular Volume 96.4 fL (80-100) Mean Corpuscular Hemoglobin 32.0 pg (25-34) Mean Corpuscular Hemoglobin Concent 33.2 g/dl (32-36) Platelet Count 237 K/uL (130-400) Mean Platelet Volume 8.5 fL (7.4-10.4) Neutrophils (%) (Auto) 95.2 % Lymphocytes (%) (Auto) 3.4 % Monocytes (%) (Auto) 0.9 % Eosinophils (%) (Auto) 0.0 % Basophils (%) (Auto) 0.1 % Neutrophils # (Auto) 7.28 K/uL (1.4-6.5) Lymphocytes # (Auto) 0.26 K/uL (1.2-3.4) Monocytes # (Auto) 0.07 K/uL (0.11-0.59) Eosinophils # (Auto) 0.00 K/uL (0-0.5) Basophils # (Auto) 0.01 K/uL (0-0.2) RDW Standard Deviation 54.4 fL (36.4-46.3) RDW Coefficient of Variation 15.4 % (11.5-14.5) Immature Granulocyte % (Auto) 0.4 % Immature Granulocyte # (Auto) 0.03 K/uL (0.00-0.02) Prothrombin Time 9.9 SECONDS (9.0-12.0) Prothromb Time International Ratio 0.9 (0.9-1.1) Activated Partial Thromboplast Time 28.0 SECONDS (21.0-31.0) Partial Thromboplastin Ratio 1.1 Anion Gap 6.0 mmol/L (3-11) Est Creatinine Clear Calc Drug Dose 42.5 ml/min Estimated GFR () 48.2 Estimated GFR (Non- 41.6 BUN/Creatinine Ratio 21.1 (10-20) Calcium Level 9.1 mg/dl (8.5-10.1) Magnesium Level 2.2 mg/dl (1.8-2.4) Total Bilirubin 0.6 mg/dl (0.2-1) Aspartate Amino Transf (AST/SGOT) 18 U/L (15-37) Alanine Aminotransferase (ALT/SGPT) 32 U/L (12-78) Alkaline Phosphatase 100 U/L (45-117) Troponin I < 0.015 ng/ml (0-0.045) Pro-B-Type Natriuretic Peptide 878 pg/ml (0-1800) Total Protein 7.8 gm/dl (6.4-8.2) Albumin 3.2 gm/dl (3.4-5.0) Globulin 4.6 gm/dl (2.5-4.0) Albumin/Globulin Ratio 0.7 (0.9-2) Laboratory results reviewed by me. Medications Administered Medications (Trade) Dose Ordered Sig/Mak Route Start Time Stop Time Status Last Admin Dose Admin Albuterol/ Ipratropium (Duoneb) 3 ml NOW STAT INH 11/04/17 21:50 11/04/17 21:51 DC 11/04/17 22:02 3 ML Nitroglycerin (Nitroglycerin 2% Oint) 2 inch NOW ONCE EXT 11/04/17 22:00 11/04/17 22:01 DC 11/04/17 23:00 2 INCH ECG Per My Interpretation Indication: SOB/dyspnea Rate (beats per minute): 107 Rhythm: atrial fibrillation Findings: LBBB, other (Significant baseline artifact making interpretation difficult, No ST elevation) Comparison ECG Date: 11/25/16 Change: QRS complex unchanged, a fib may now be present. REPEAT EKG: Shows atrial fibrillation with a rate of 90. LBBB noted. There is no acute ischemia, no PVCs, and no ectopy. ED Course 2144: The patient was evaluated in room B06. A complete history and physical exam was performed. 2149: Ordered Duoneb 3 ml INH. 2199: Ordered Nitroglycerin 2 inch EXT. 2324: I reevaluated the patient and she is better. I updated her and her daughter who is in the room. I discussed the treatment plan, which they agree to. The patient will be further evaluated. 2343: I discussed the patients case with Dr. Collier, [facility] Hospitalist. He understands the patients condition and agrees to accept the patient. The patient will be further evaluated. Medical Decision The patient is a 87 year old female who presents to the Emergency Room with complaints of worsened shortness of breath that started yesterday. Differential diagnoses considered include CHF, pneumonia, exacerbation of COPD, bronchitis, cardiac ischemia, anemia, FL, electrolyte imbalance.. There is no leukocytosis or worrisome anemia. VBG does show some CO2 retention. Patient had some mild hyponatremia, no kidney failure or hepatitis. There is no coagulopathy. EKG shows atrial fibrillation which is rate controlled, no acute ischemic change. Cardiac enzyme testing 1 is not consistent with acute cardiac injury. Chest x-ray does not show pneumonia or CHF. There was no pneumothorax. BNP was not elevated making fluid overload less likely. The patient had already received Solu-Medrol. She did receive a DuoNeb while in our ER. She was placed on BiPAP as she seemed to be in some respiratory distress. She was placed on nitroglycerin paste. The patient is retaining CO2, likely from a flare of her asthma. This has led to somnolence and a sleepy state. The BiPAP was adjusted to keep her O2 saturation around 92% in hopes of decreasing the CO2 value. The patient requires a hospital stay. I did speak with the patient and her daughter. I talked with the hospitalist. The on-call first aid instructor was also consulted. The patient's heart rate has improved, her blood pressure is improved, she seems comfortable. She remains somnolent though. Medication Reconcilliation Current Medication List: was personally reviewed by me Blood Pressure Screening Patient's blood pressure: Elevated blood pressure Referred to Hospitalist Consults Time Called: [phone] Consulting Physician: Dr. Lee [facility] Returned Call: [phone] I discussed the patients case with Dr. Collier [facility]. He understands the patients condition and agrees to accept the patient. The patient will be further evaluated. Impression Primary Impression: Respiratory distress Additional Impressions: Exacerbation of asthma Atrial fibrillation Change in mental status CO2 retention Critical Care I have personally spent greater than 35 minutes of critical care time in the direct management of this patient. This includes bedside care, interpretation of diagnostic studies, and testing, discussion with consultants, patient, and family members, and other required patient management activities. This 35 minutes is in excess of all separately billable procedures. Scribe Attestation The scribe's documentation has been prepared under my direction and personally reviewed by me in its entirety. I confirm that the note above accurately reflects all work, treatment, procedures, and medical decision making performed by me. Departure Information Dispostion Being Evaluated By Hospitalist Referrals CoosJennifer (PCP) Patient Instructions My [facility] Problem Qualifiers
[2017-11-04 22:35] VITALS: PULSE 115; O2SAT 99
--- NOTE | 2017-11-04 22:47 | DIAGNOSTIC IMAGING REPORT ---
CHEST ONE VIEW PORTABLE HISTORY: 87 years-old Female EVALUATE RESPIRATORY DISTRESS.DYSPNEA acute respiratory distress COMPARISON: Chest radiograph 11/25/2016 TECHNIQUE: Portable AP view of the chest FINDINGS: Cardiac silhouette is again mildly enlarged, unchanged. Atherosclerosis of the aorta. Left subclavian pacer appears unchanged. Linear subsegmental bibasilar opacities suggest atelectasis/scarring. No pneumothorax, large pleural effusion, lobar airspace consolidation or overt pulmonary edema. Degenerative changes are seen within the shoulders and spine. IMPRESSION: Cardiomegaly without acute process. The above report was generated using voice recognition software. It may contain grammatical, syntax or spelling errors. Electronically signed by: Evert Tellez M.D. 11/04/2017 10:46 PM Dictated Date/Time: 11/04/2017 10:44 PM
[2017-11-04 22:56] LABS: BASO % 0.1 %; BASO ABS # 0.01 K/uL (0-0.2); HEMATOCRIT 42.8 % (37-47); HEMOGLOBIN 14.2 g/dL (12.0-16.0); IG# 0.03 K/uL (0.00-0.02); LYMPH % 3.4 %; LYMPH ABS # 0.26 K/uL (1.2-3.4); MEAN CELL VOLUME 96.4 fL (80-100); MEAN CORPUSCULAR HGB CONC 33.2 g/dl (32-36); MEAN PLATELET VOLUME 8.5 fL (7.4-10.4); MONO % 0.9 %; MONO ABS # 0.07 K/uL (0.11-0.59); NEUT % 95.2 %; NEUT ABS # 7.28 K/uL (1.4-6.5); PLATELET COUNT 237 K/uL (130-400); RED CELL DISTRIBUTION WIDTH CV 15.4 % (11.5-14.5); RED CELL DISTRIBUTION WIDTH SD 54.4 fL (36.4-46.3); WHITE BLOOD COUNT 7.65 K/uL (4.8-10.8)
[2017-11-04 23:07] LABS: INR 0.9 (0.9-1.1)
[2017-11-04 23:15] LABS: ALBUMIN 3.2 gm/dl (3.4-5.0); ALT/SGPT 32 U/L (12-78); AST/SGOT 18 U/L (15-37); BLOOD UREA NITROGEN 25 mg/dl (7-18); CALCIUM 9.1 mg/dl (8.5-10.1); CARBON DIOXIDE 31 mmol/L (21-32); CREATININE 1.19 mg/dl (0.60-1.20); GLUCOSE 194 mg/dl (70-99); SODIUM 128 mmol/L (136-145)
[2017-11-04 23:20] LABS: ALKALINE PHOSPHATASE 100 U/L (45-117); TOTAL PROTEIN 7.8 gm/dl (6.4-8.2)
[2017-11-04] MEDS ORDERED: DOCU1TAB6 PO (23:28)
[2017-11-04] MEDS ORDERED: MOML PO (23:29)
[2017-11-04] MEDS ORDERED: ACET-1256 PO (23:30)
[2017-11-04] MEDS ORDERED: LNX125 PO (23:32)
[2017-11-04] MEDS ORDERED: LEVO88TA3 PO (23:34)
[2017-11-04] MEDS ORDERED: DILT120C68 PO (23:35)
[2017-11-04] MEDS ORDERED: POTA-639 PO (23:36)
[2017-11-04] MEDS ORDERED: FURO-85 PO (23:38)
[2017-11-04] MEDS ORDERED: ATRINS NEB (23:40)
[2017-11-04] MEDS ORDERED: LVQ250 PO (23:42)
[2017-11-04] MEDS ORDERED: METH1TAB81 PO (23:45)
[2017-11-04] MEDS ORDERED: PANT40TA PO (23:49)
--- NOTE | 2017-11-04 23:53 | History and Physical ---
History & Physical Date & Time of Service: Nov 04, 2017 at 23:52 Chief Complaint: SOB Primary Care Physician: Bouchra Skinner M.D. History of Present Illness Source: family, hospital records Patient is an 87-year-old female with past medical history of CHF, atrial fibrillation, asthma, CVA, hypertension, carotid artery disease, hypothyroidism , dementia and other problems presents from [facility] with worsening shortness of breath and cough since yesterday. Patient is somnolent and could not provide any history. Most of the history is obtained from the ER physician medical records and from the patient's daughter. Patient was recently discharged from [facility] after being treated for acute CHF exacerbation and atrial fibrillation. As per the staff patient has been increasingly short of breath since yesterday and patient has been treated with Solu-Medrol and was started on steroid taper and oxygen. Patient was also noted to have increased in weight of about 3 pounds and her lasix was increased from 20mg daily to BID today. Patient was put on BiPAP on arrival to ED and was found to have CO2 of 70. Patient has been very somnolent and unarousable during my examination in the ED. chest x-ray showed cardiomegaly without any acute process. Past Medical/Surgical History Medical Problems: (1) Altered mental status (2) Asthma (3) Carotid artery disease (4) Cerebrovascular disease (5) Dementia (6) Hypertension (7) Hypothyroidism (8) Knee Joint Replacement Status (9) Mitral Valve Disorder (10) Sepsis (11) Thoracic Disc Degen (12) Tricuspid Valve Disease (13) Urinary incontinence (14) UTI (urinary tract infection) Surgical Problems: (1) S/P placement of cardiac pacemaker Family History Cancer Diabetes mellitus Heart disease Could not be obtained Social History Smoking Status: Never Smoker Alcohol Use: none Drug Use: none Marital Status: Occupational Status: retired Immunizations History of Influenza Vaccine: No History of Tetanus Vaccine?: Unknown History of Pneumococcal: No History of Hepatitis B Vaccine: Unknown Allergies Coded Allergies: Adhesives (Verified Allergy, Unknown, RXN TO TAPE, 11/04/17) Penicillins (Verified Allergy, Unknown, RXN TO AMOXICILLIN, 11/04/17) Home Medications Scheduled Aspirin (Aspirin Ec), 81 MG PO DAILY Atorvastatin (Lipitor), 40 MG PO DAILY Digoxin (Digoxin), 0.125 MG PO DAILY Diltiazem Hcl Ext Rel (Tiazac), 120 MG PO DAILY Furosemide (Lasix), 20 MG PO DAILY Ipratropium [place] (Ipratropium [place]), 1 VIAL NEB Q4 Latanoprost (Latanoprost), 1 DROP OPB HS Levofloxacin (Levofloxacin), 250 MG PO DAILY Levothyroxine Sodium (Levothyroxine Sodium), 88 MCG PO DAILY Lisinopril (Lisinopril), 10 MG PO DAILY Methylprednisolone (Medrol), 16 MG PO DIRECTED Metoprolol Succinate (Metoprolol Succinate ER), 50 MG PO DAILY Oxybutynin Chloride (Oxybutynin Chloride Er), 5 MG PO DAILY Pantoprazole (Protonix), 40 MG PO DAILY Potassium Ext Rel (Klor-Con), 20 MEQ PO DAILY Scheduled PRN Acetaminophen (Tylenol), 1 TAB PO Q4 PRN for Pain or Fever Albuterol Sulf (Proventil 0.083% 2.5MG/3ML), 2.5 MG INH QID PRN for SOB/Wheezing Albuterol Sulfate (Proair Respiclick), 2 PUFFS INH QID PRN for SOB/Wheezing Docusate Sodium (Docusate Sodium), 100 MG PO BID PRN for constipation Magnesium Hydroxide (Milk Of Magnesia), 30 ML PO DAILY PRN for constipation Review of Systems Could not be obtained because of the patient's mental status. Physical Exam Vital Signs Date Time Temp Pulse Resp B/P (MAP) Pulse Ox O2 Delivery O2 Flow Rate FiO2 11/04/17 23:03 102 18 121/87 94 Room Air 11/04/17 22:35 115 99 40 11/04/17 22:18 BiPAP 40 11/04/17 22:18 97 BiPAP 11/04/17 22:03 105 22 99 BiPAP/CPAP 40 11/04/17 21:45 101 11/04/17 21:42 100 Non-Rebreather 11/04/17 21:38 36.8 102 24 160/115 100 Non-Rebreather General Appearance: WD/WN, no apparent distress, + pertinent finding (Somnolent , unarousable) Head: normocephalic, atraumatic Eyes: normal inspection, PERRL, EOMI, sclerae normal ENT: normal ENT inspection Neck: supple, trachea midline Respiratory/Chest: chest non-tender, normal breath sounds, no respiratory distress, no accessory muscle use, + wheezing Cardiovascular: no murmur, + tachycardia, + irregularly irregular, + pertinent finding (1+ b/l edema, Pacemaker on left side of chest) Abdomen/GI: normal bowel sounds, non tender, soft Back: normal inspection Extremities/Musculoskelatal: normal inspection, + pedal edema (1+ b/l) Neurologic/Psych: + pertinent finding (Somnolent, unarousable. Complete neuro exam could not be performed) Skin: normal color, warm/dry Diagnostics Laboratory Results Results Past 24 Hours Test 11/04/17 22:48 Range/Units White Blood Count 7.65 4.8-10.8 K/uL Red Blood Count 4.44 4.2-5.4 M/uL Hemoglobin 14.2 12.0-16.0 g/dL Hematocrit 42.8 37-47 % Mean Corpuscular Volume 96.4 80-100 fL Mean Corpuscular Hemoglobin 32.0 25-34 pg Mean Corpuscular Hemoglobin Concent 33.2 32-36 g/dl Platelet Count 237 130-400 K/uL Mean Platelet Volume 8.5 7.4-10.4 fL Neutrophils (%) (Auto) 95.2 % Lymphocytes (%) (Auto) 3.4 % Monocytes (%) (Auto) 0.9 % Eosinophils (%) (Auto) 0.0 % Basophils (%) (Auto) 0.1 % Neutrophils # (Auto) 7.28 1.4-6.5 K/uL Lymphocytes # (Auto) 0.26 1.2-3.4 K/uL Monocytes # (Auto) 0.07 0.11-0.59 K/uL Eosinophils # (Auto) 0.00 0-0.5 K/uL Basophils # (Auto) 0.01 0-0.2 K/uL RDW Standard Deviation 54.4 36.4-46.3 fL RDW Coefficient of Variation 15.4 11.5-14.5 % Immature Granulocyte % (Auto) 0.4 % Immature Granulocyte # (Auto) 0.03 0.00-0.02 K/uL Prothrombin Time 9.9 9.0-12.0 SECONDS Prothromb Time International Ratio 0.9 0.9-1.1 Activated Partial Thromboplast Time 28.0 21.0-31.0 SECONDS Partial Thromboplastin Ratio 1.1 Venous Blood pH 7.29 7.36-7.41 Venous Blood Partial Pressure CO2 70 38.0-50.0 mmHg Venous Blood Partial Pressure O2 42 mmHg Venous Blood HCO3 33 mmol/L Venous Blood Oxygen Saturation 72.4 % Venous Blood Base Excess 3.8 mEq/L Sodium Level 128 136-145 mmol/L Potassium Level 5.0 3.5-5.1 mmol/L Chloride Level 91 98-107 mmol/L Carbon Dioxide Level 31 21-32 mmol/L Anion Gap 6.0 3-11 mmol/L Blood Urea Nitrogen 25 7-18 mg/dl Creatinine 1.19 0.60-1.20 mg/dl Est Creatinine Clear Calc Drug Dose 42.5 ml/min Estimated GFR () 48.2 Estimated GFR (Non- 41.6 BUN/Creatinine Ratio 21.1 10-20 Random Glucose 194 70-99 mg/dl Calcium Level 9.1 8.5-10.1 mg/dl Magnesium Level 2.2 1.8-2.4 mg/dl Total Bilirubin 0.6 0.2-1 mg/dl Aspartate Amino Transf (AST/SGOT) 18 15-37 U/L Alanine Aminotransferase (ALT/SGPT) 32 12-78 U/L Alkaline Phosphatase 100 45-117 U/L Troponin I < 0.015 0-0.045 ng/ml Pro-B-Type Natriuretic Peptide 878 0-1800 pg/ml Total Protein 7.8 6.4-8.2 gm/dl Albumin 3.2 3.4-5.0 gm/dl Globulin 4.6 2.5-4.0 gm/dl Albumin/Globulin Ratio 0.7 0.9-2 Microbiology Results 11/04/17 Blood Culture, Received Pending 11/04/17 Blood Culture, Received Pending Diagnostic Radiology CXR: Cardiomegaly without acute process. EKG EKG: Atrial Fibrillation, LBBB Impression Assessment and Plan Acute Respiratory failure with hypercapnia: Metabolic Encephalopathy: Secondary to Asthma Exacerbation Admit as inpatient in ICU CXR: no signs of consolidation IV solumedrol, bronchodilators Blood culture Oxygen support per protocol Continue BiPAP for now Repeat labs in AM including ABG Consulted Crew Member Neuro checks May need Intubation UA pending Aspiration precautions NPO for now Chronic CHF: No signs of acute exacerbation CXR: no signs of congestion BNP: normal check ECHO Atrial fibrillation RVR: Currently rate controlled Continue Digoxin, Diltiazem Not on anticoagulation 2/2 high fall risk Check Digoxin levels Elevated Glucose: Likely 2/2 steroids Check A1C ISS, Monitor BGs H/O CVA: Continue ASA, statins HTN: continue home meds monitor carotid artery disease: continue Hypothyroidism: Continue Levothyroxine Check TSH, Free T4 Dementia: Stable Not on any meds at home DVT Px: Heparin SQ Code Status: Full Code for now May need to readdress code status in AM Disposition: Monitor in ICU Follow up with records from [facility] Resuscitation Status VTE Prophylaxis Will order VTE Prophylaxis: Yes
[2017-11-05] VITALS (34 sets, daily range): BP systolic 82–152; BP diastolic 42–90; PULSE 61–118; TEMP 36.3–37.3; O2SAT 83–99; Ht 167.6 cm; Wt 90.6 kg
[2017-11-05] MEDS ORDERED: ICU PROTOCOL FOR HYPERGLYCEMIA PRN (01:00)
[2017-11-05] MEDS ORDERED: ACETAMINOPHEN 325 MG TAB PO PRN (01:00)
[2017-11-05] MEDS ORDERED: ONDANSETRON INJ 2 MG/ML 2 ML VIAL IV PRN (01:00)
--- NOTE | 2017-11-05 01:06 | Critical Care Consultation ---
Critical Care Consultation Date of Consultation: Nov 05, 2017. Attending Physician: Dr. Collier Reason for Consultation: Acute Hypercapnic Respiratory Failure History of Present Illness Anju Huggins is an 87 yo female with increasing hospital admissions over the last few months. Most recent stay for Cristobal. Fib and acute on chronic CHF was at [facility], Records not currently available. Pt was transferred to [facility] afterwards for PT/OT before she could return home to her . She was treated at [facility] yesterday with Solumedrol, Prednisone taper and an increase in lasix medication secondary to an becoming SOB, requiring 3-4L O2, and wheezing. More recently pt became increasing somnolent and was sent to [facility] ED and treated with a nebulizer on the way. Per my discussion with Dr. Mcmullen pt was placed on Bipap upon arrival and found to have a CO2 of 70. Her somnolence has worsened and she is not arousing. Her GCS score is < 10. I have asked that she be intubated prior to transfer to the ICU. Her ED course included duoneb. ROS can not be obtained secondary to pt condition. There is no family present at this time. Past Medical/Surgical History Medical Problems: Asthma Carotid artery disease Cerebrovascular disease Dementia Hypertension Hypothyroidism Knee Joint Replacement Status Mitral Valve Disorder Thoracic Disc Degen Tricuspid Valve Disease Urinary incontinence Surgical Problems: S/P placement of cardiac pacemaker Family History Cancer Diabetes mellitus Heart disease Social History Smoking Status: Never Smoker Drug Use: none Marital Status: Housing Status: lives with family Occupation Status: retired Allergies Coded Allergies: Adhesives (Verified Allergy, Unknown, RXN TO TAPE, 11/04/17) Penicillins (Verified Allergy, Unknown, RXN TO AMOXICILLIN, 11/04/17) Home Medications Scheduled Aspirin (Aspirin Ec), 81 MG PO DAILY Atorvastatin (Lipitor), 40 MG PO DAILY Digoxin (Digoxin), 0.125 MG PO DAILY Diltiazem Hcl Ext Rel (Tiazac), 120 MG PO DAILY Furosemide (Lasix), 20 MG PO DAILY Ipratropium [place] (Ipratropium [place]), 1 VIAL NEB Q4 Latanoprost (Latanoprost), 1 DROP OPB HS Levofloxacin (Levofloxacin), 250 MG PO DAILY Levothyroxine Sodium (Levothyroxine Sodium), 88 MCG PO DAILY Lisinopril (Lisinopril), 10 MG PO DAILY Methylprednisolone (Medrol), 16 MG PO DIRECTED Metoprolol Succinate (Metoprolol Succinate ER), 50 MG PO DAILY Oxybutynin Chloride (Oxybutynin Chloride Er), 5 MG PO DAILY Pantoprazole (Protonix), 40 MG PO DAILY Potassium Ext Rel (Klor-Con), 20 MEQ PO DAILY Scheduled PRN Acetaminophen (Tylenol), 1 TAB PO Q4 PRN for Pain or Fever Albuterol Sulf (Proventil 0.083% 2.5MG/3ML), 2.5 MG INH QID PRN for SOB/Wheezing Albuterol Sulfate (Proair Respiclick), 2 PUFFS INH QID PRN for SOB/Wheezing Docusate Sodium (Docusate Sodium), 100 MG PO BID PRN for constipation Magnesium Hydroxide (Milk Of Magnesia), 30 ML PO DAILY PRN for constipation Current Inpatient Medications Current Inpatient Medications Medications (Trade) Dose Ordered Sig/Mak Route Start Time Stop Time Status Last Admin Dose Admin Heparin Sodium (Porcine) (Heparin Sq 5000 Unit/0.5ml) 5,000 unit Q8H SQ 11/05/17 01:00 12/05/17 00:59 UNV Acetaminophen (Tylenol Tab) 650 mg Q4H PRN PO 11/05/17 01:00 12/05/17 00:59 UNV Levalbuterol (Xopenex 0.63 Mg/ 3 Ml Neb) 0.63 mg QID INH 11/05/17 09:00 12/05/17 08:59 UNV Ondansetron HCl (Zofran Inj) 4 mg Q6H PRN IV 11/05/17 01:00 12/05/17 00:59 UNV Miscellaneous Information (Icu Protocol For Hyperglycemia) 1 ea PRN PRN N/A 11/05/17 01:00 11/07/17 00:59 UNV Review of Systems ROS could not be obtained secondary to pt condition. Physical Exam Date Time Temp Pulse Resp B/P (MAP) Pulse Ox O2 Delivery O2 Flow Rate FiO2 11/05/17 00:00 85 16 93 BiPAP 11/04/17 23:03 121/87 11/04/17 23:03 102 18 121/87 94 Room Air 11/04/17 23:00 94 25 94 BiPAP 11/04/17 22:35 115 99 40 11/04/17 22:18 BiPAP 40 11/04/17 22:18 97 BiPAP 11/04/17 22:03 105 22 99 BiPAP/CPAP 40 11/04/17 21:45 101 11/04/17 21:42 100 Non-Rebreather 11/04/17 21:38 36.8 102 24 160/115 100 Non-Rebreather Vital Signs - as noted Laboratory Data - as noted Physical Exam: General - NAD, Appears to be sleeping in bed, Does not respond to name Eyes - PERRL but sluggish, No icterus, gaze conjugate ENT - BiPap mask in place, mucosa dry, no lesions or candidiasis, edentulous Neck - Supple, trachea midline, no masses or lymphadenopathy, no JVD or bruits Lungs - No paradoxical chest wall movement, clear and diminished bilaterally, no wheezes, rales, or rhonchi Heart - Irregularly irregular, No murmur, rubs, clicks, or gallops appreciated Abdomen - BS present, no bruits noted, tympanic to percussion, soft, distended obese abd, no organomegaly Extremities - Trace pedal edema, pedal pulses intact Neuro - GCS 7 Strength could not be assessed Reflexes: Normal and equal CN:PERRL but sluggish, no facial asymmetry, uvula/tongue midline, no unilateral signs noted Laboratory Results Last 24 Hours Test 11/04/17 22:48 11/05/17 00:51 White Blood Count 7.65 K/uL Red Blood Count 4.44 M/uL Hemoglobin 14.2 g/dL Hematocrit 42.8 % Mean Corpuscular Volume 96.4 fL Mean Corpuscular Hemoglobin 32.0 pg Mean Corpuscular Hemoglobin Concent 33.2 g/dl Platelet Count 237 K/uL Mean Platelet Volume 8.5 fL Neutrophils (%) (Auto) 95.2 % Lymphocytes (%) (Auto) 3.4 % Monocytes (%) (Auto) 0.9 % Eosinophils (%) (Auto) 0.0 % Basophils (%) (Auto) 0.1 % Neutrophils # (Auto) 7.28 K/uL Lymphocytes # (Auto) 0.26 K/uL Monocytes # (Auto) 0.07 K/uL Eosinophils # (Auto) 0.00 K/uL Basophils # (Auto) 0.01 K/uL RDW Standard Deviation 54.4 fL RDW Coefficient of Variation 15.4 % Immature Granulocyte % (Auto) 0.4 % Immature Granulocyte # (Auto) 0.03 K/uL Prothrombin Time 9.9 SECONDS Prothromb Time International Ratio 0.9 Activated Partial Thromboplast Time 28.0 SECONDS Partial Thromboplastin Ratio 1.1 Venous Blood pH 7.29 Venous Blood Partial Pressure CO2 70 mmHg Venous Blood Partial Pressure O2 42 mmHg Venous Blood HCO3 33 mmol/L Venous Blood Oxygen Saturation 72.4 % Venous Blood Base Excess 3.8 mEq/L Sodium Level 128 mmol/L Potassium Level 5.0 mmol/L Chloride Level 91 mmol/L Carbon Dioxide Level 31 mmol/L Anion Gap 6.0 mmol/L Blood Urea Nitrogen 25 mg/dl Creatinine 1.19 mg/dl Est Creatinine Clear Calc Drug Dose 42.5 ml/min Estimated GFR () 48.2 Estimated GFR (Non- 41.6 BUN/Creatinine Ratio 21.1 Random Glucose 194 mg/dl Calcium Level 9.1 mg/dl Magnesium Level 2.2 mg/dl Total Bilirubin 0.6 mg/dl Aspartate Amino Transf (AST/SGOT) 18 U/L Alanine Aminotransferase (ALT/SGPT) 32 U/L Alkaline Phosphatase 100 U/L Troponin I < 0.015 ng/ml Pro-B-Type Natriuretic Peptide 878 pg/ml Total Protein 7.8 gm/dl Albumin 3.2 gm/dl Globulin 4.6 gm/dl Albumin/Globulin Ratio 0.7 Diagnostic Results CHEST ONE VIEW PORTABLE HISTORY: 87 years-old Female EVALUATE RESPIRATORY DISTRESS.DYSPNEA acute respiratory distress COMPARISON: Chest radiograph 11/25/2016 TECHNIQUE: Portable AP view of the chest FINDINGS: Cardiac silhouette is again mildly enlarged, unchanged. Atherosclerosis of the aorta. Left subclavian pacer appears unchanged. Linear subsegmental bibasilar opacities suggest atelectasis/scarring. No pneumothorax, large pleural effusion, lobar airspace consolidation or overt pulmonary edema. Degenerative changes are seen within the shoulders and spine. IMPRESSION: Cardiomegaly without acute process. The above report was generated using voice recognition software. It may contain grammatical, syntax or spelling errors. Electronically signed by: Evert Tellez M.D. 11/04/2017 10:46 PM Dictated Date/Time: 11/04/2017 10:44 PM Assessment & Plan (1) Acute hypercapnic respiratory failure (2) Atrial fibrillation (3) CO2 retention (4) Change in mental status (5) Exacerbation of asthma (6) Hyperglycemia (7) Dementia (8) Hypothyroidism Reason Critically Ill: Patient is an 87-year-old female who is transferred to the ICU for acute hypercapnic respiratory failure with altered mental status. PLAN: Resp: * Acute Hypercapnic Respiratory Failure 2/2 to presumed Asthma exacerbation * Hx of Asthma * Continue Resp Regimen via inhaler * IV steroids as ordered * No concomitant infection noted: will check procalcitonin * CXR without acute process * Blood Cultures pending * Intubated in ED * Settings now 7.5ET VOL AC 550/20/8/40% * Repeat ABG in 1hr * RASS Goal 0 * PRN Versed and Fentanyl * Monitor mental status overnight and possibility for AM extubation if greatly improved * CXR in AM * ABG with Vent Changes ID: * No indication for Abx at this time * Procalcitonin Pending * U/A Neg * Blood Cultures pending * CV: * Hx of CHF * No sign of fluid overload via CXR or physical exam * Per bedside ultrasound pt is not fluid overloaded. No B Lines noted on US * Check ECHO in AM * Doubt acute exacerbation, BNP also WNL * A fib * Check Digoxin Level * Rate Controlled currently * Per conversation with Dr. Collier, [facility] Hospitalist pt could not be anticoagulated 2/2 to fall risk * HTN: Continue home medications via OG Tube * Troponin Neg x1 * Monitor on telemetry Neuro: * Consider head CT if significant improvement not noted with reduced CO2 * Do not see neurological changes * Appears to all be 2/2 hypercapnia * Goal RASS 0 * PRN Versed/Fentanyl * GCS in ED < 10 * Hx of Dementia * No home medications noted on EMR * Do not know current baseline Fluids/Renal: * Unknown Baseline: Cr 1.19 currently * NSS @ 100 * Daily PRP * De Oliveira to [place] * UA clean * Strict I&Os * Holding home ACEi now GI/Nutrition: * NPO Except Meds * Continue home Protonix PO * LFTs grossly normal Heme: * H&H 13/39 Plts 225 * DVT Prophylaxis: Heparin 5,000 units Endocrine: * Accu-Checks per protocol, started insulin infusion for 2 blood sugars greater than 180 * A1C pending * Hyperglycemia: pt is on steroids * No home use of DM medications * Hx of Hypothyroidism * Continue home Synthroid. CCT: 60 Minutes; This time is exclusive of all separately billable procedures. Thank you for involving us in the care of this patient. Please refer to Dr. Jomar Oden's addendum for further recommendations. I examined the patient today and she was also discussed on multidisciplinary rounds. Reason Critically Ill: Acute hypercarbic respiratory failure Additional history obtained from patient's daughter. Reports that after discharge home from hospital patient was started on cough syrup that was DM in nature. PLAN: Neuro: CAM positive Hx of dementia at baseline Resp: Hypercarbic respiratory failure -Likely secondary to medication effect: Cough syrup -Possible contribution of obstructive sleep apnea: Patient snores very loudly when sleeping per daughter CV: Atrial fibrillation -Chronic -Reviewed cardiology consultation -Will defer systemic anticoagulation today, will consider anticoagulation tomorrow Fluids/Renal: Acute kidney injury -500 mL normal saline bolus Hyponatremia -No evidence of volume overload BNP within normal limits Lactic acidosis: Resolved ID: Afebrile -Left basilar consolidation GI/Nutrition: Bedside swallow study - diet as tolerated Heme: DVT prophylaxis -We will consider systemic anticoagulation tomorrow Endocrine: Hyperglycemia -ICU hyperglycemia protocol Vascular access: Peripheral IVs Code Status: I had an extensive discussion with the patient and the patient's daughter. Patient does appear to have independent decision-making capacity, she clearly understood respiratory insufficiency and respiratory arrest and what needed to occur to prevent as well as difference between cardiac arrest and being a DO NOT RESUSCITATE in event of cardiac arrest ultimately leading to the patient' s . The patient opts for no resuscitation in event of cardiac arrest she is agreeable with intubation in terms of respiratory insufficiency/respiratory arrest. This note reflects service of October 29, 2017 I have personally spent 40 minutes of critical care time in the direct management of this patient. This is a life/limb threatening event. This includes time spent evaluating patient, direct bedside care, chart review, placing orders, interpretation of diagnostic studies, discussion with consultants, patient, and/or family members regarding treatment decisions, as well as other required patient management activities. This time is exclusive of all separately billable procedures, and teaching time and separate from and in addition to any other critical care service time.
[2017-11-05] MEDS ORDERED: RAPID SEQUENCE INDUCTION BAG ONE (01:16)
[2017-11-05] MEDS ORDERED: MAGNESIUM HYDROXIDE SUSP 30 ML UDC PO PRN (01:30)
--- NOTE | 2017-11-05 01:43 | EMERGENCY ROOM VISIT NOTE ---
ED Visit Note First contact with patient: 01:43 Brief summary: 87 yr old female with COPD Exacerbation with deterioration while awaiting admission in ED despite BiPAP. Becoming further acidotic and GCS dropping to point where minimally responsive to stimuli. Reviewed with CCM team who feels patient should be intubated prior to transfer to ICU which seems necessary at this time. Discussion with Dr Mcmullen notes she is full code per her family. Endotracheal Intubation Indication: Respiratory Failure The patient was being bagged by respiratory with BVM. Suction, airway equipment , RSI drugs, respiratory equipment, and appropriate personnel were prepared prior to the initiation of the procedure. A time out was taken. Induction was performed with 150mg Succinylcholine and 10mg Etomidate IV (note she is essentially obtunded on my evaluation). After observing the clinical benefit of the medications, the airway was easily visualized utilizing a Blade #4 Glidescope. A 7.5 size ETT tube was placed atraumatically to 24 cm using standard technique. The cuff inflated without signs of malfunction. There were bilateral breath sounds, positive colormetric change, no gastric sounds, a good capnography waveform, and post procedure pulse oximetry was 100%. Post intubation sedation and paralysis was administered using Versed and Fentanyl. There were no complications. Chest Xray: My interpretation: 1 View. ET Tube in proper position. No pneumothorax. Cardiomegaly without clear infiltrate.
[2017-11-05] MEDS ORDERED: GLUCAGON FOR INJ 1 MG VIAL SQ PRN (01:45)
[2017-11-05] MEDS ORDERED: DEXTROSE 50% 50 ML SYR IV PRN (01:45)
[2017-11-05] MEDS ORDERED: GLUCOSE 40% GEL 15 GM TUBE PO PRN (01:45)
[2017-11-05] MEDS ORDERED: GLUCOSE 10 TABS/TUBE PO PRN (01:45)
[2017-11-05] MEDS ORDERED: FENTANYL CITRATE INJ 50 MCG/1 ML 2 ML VIAL IV STA ×2 (01:48→02:04)
[2017-11-05] MEDS ORDERED: MIDAZOLAM HCL 5 MG/ML 1 ML VIAL IV STA (01:48)
[2017-11-05] MEDS ORDERED: DOCUSATE SODIUM 100 MG CAP PO PRN (02:00)
[2017-11-05] MEDS ORDERED: SODIUM CHLORIDE 0.9% 500ML 500 ML IV SCH (02:15)
[2017-11-05] MEDS ORDERED: MIDAZOLAM HCL 5 MG/ML 1 ML VIAL IV PRN (02:15)
[2017-11-05] MEDS ORDERED: FENTANYL CITRATE INJ 50 MCG/1 ML 2 ML VIAL IV PRN (03:30)
[2017-11-05] MEDS: SODIUM CHLORIDE 0.9% 1000ML 1,000 ML IV SCH ×3 (03:48→23:00)
[2017-11-05] MEDS: METHYLPREDNISOLONE IV 40 MG in SYRINGE 0 ML IV SCH ×3 (03:51→20:18)
[2017-11-05 04:16] LABS: HEMATOCRIT 39.2 % (37-47); HEMOGLOBIN 13.1 g/dL (12.0-16.0); MEAN CELL VOLUME 95.8 fL (80-100); MEAN CORPUSCULAR HGB CONC 33.4 g/dl (32-36); MEAN PLATELET VOLUME 8.7 fL (7.4-10.4); PLATELET COUNT 225 K/uL (130-400); RED CELL DISTRIBUTION WIDTH CV 15.1 % (11.5-14.5); RED CELL DISTRIBUTION WIDTH SD 53.1 fL (36.4-46.3)
[2017-11-05 04:40] LABS: CALCIUM 8.7 mg/dl (8.5-10.1); CREATININE 1.38 mg/dl (0.60-1.20); POTASSIUM 5.3 mmol/L (3.5-5.1)
[2017-11-05] MEDS: INSULIN ASPART 100 UNITS/ML 3 ML PEN SC SCH ×4 (05:33→23:52)
[2017-11-05] MEDS: LEVOTHYROXINE 88 MCG TAB NG SCH (05:35)
[2017-11-05] MEDS: HEPARIN SOD 5000 UNIT/0.5 ML CARP SQ SCH ×3 (05:37→21:45)
[2017-11-05] MEDS ORDERED: PNEUMOCOCCAL POLYSACCHARIDES 25 MCG/0.5 ML VIAL/SYR IM. ONE (05:45)
[2017-11-05] MEDS ORDERED: PNEUMOCOCCAL ADMINISTRATION CHARGE ONE (05:45)
[2017-11-05 06:28] LABS: HEMOGLOBIN A1C 6.2 % (4.5-5.6)
--- NOTE | 2017-11-05 07:31 | DIAGNOSTIC IMAGING REPORT ---
CHEST ONE VIEW PORTABLE CLINICAL HISTORY: 87 years-old Female presenting with Resp Failure. TECHNIQUE: Portable upright AP view of the chest was obtained. COMPARISON: 11/05/2017 at 1:38 AM. FINDINGS: Endotracheal tube terminates in the lower thoracic trachea over 2 cm from the chemo. Nasogastric tube descends below the diaphragm. Left subclavian pacer with leads to the right atrium and right ventricular apex. Atherosclerosis of the aortic arch with partial obscuration of the descending thoracic aorta contour secondary to left basilar opacity. Unchanged dense left basilar opacity with moderate left pleural effusion. No pneumothorax. Right lung and pleural space clear. Degenerative changes of the thoracic spine. Numerous leads overlie the upper abdomen degrading evaluation. IMPRESSION: 1. Extensive left basilar consolidation with moderate left pleural effusion. Infection cannot be excluded. 2. Appropriately positioned endotracheal tube. Electronically signed by: Jens Morgan M.D. 11/05/2017 7:30 AM Dictated Date/Time: 11/05/2017 7:27 AM
--- NOTE | 2017-11-05 07:33 | DIAGNOSTIC IMAGING REPORT ---
CHEST ONE VIEW PORTABLE HISTORY: post intubation COMPARISON: Chest 11/04/2017. FINDINGS: The endotracheal tube terminates 2 cm from the chemo. Left-sided dual-chamber pacemaker. The heart remains mildly enlarged. Small left pleural effusion and left basilar densities have slightly progressed. No pneumothorax. Mild emphysema. No evidence for pulmonary edema. A few linear scarlike densities within the right midlung zone, unchanged. IMPRESSION: 1. The endotracheal tube terminates 2 cm from the chemo. 2. Slight increase in size in the small left pleural effusion and left basilar densities. Electronically signed by: Marcin Rodríguez M.D. 11/05/2017 7:32 AM Dictated Date/Time: 11/05/2017 7:31 AM
[2017-11-05] MEDS ORDERED: LEVALBUTEROL 0.63MG/3 ML NEB INH SCH (08:00)
[2017-11-05] MEDS: DILTIAZEM HCL 30 MG TAB NG SCH ×3 (08:55→19:00)
[2017-11-05] MEDS: LANSOPRAZOLE SOLUTAB 30 MG NG SCH (08:55)
[2017-11-05] MEDS: FUROSEMIDE 20 MG TAB NG SCH (08:55)
[2017-11-05] MEDS: ATORVASTATIN 40 MG TAB NG SCH (08:55)
[2017-11-05] MEDS: ASPIRIN 81 MG CHEW NG SCH (08:55)
[2017-11-05] MEDS ORDERED: PERFLUTREN LIPID MICROSPHERE (DEFINITY) IV ONE (08:56)
[2017-11-05] MEDS ORDERED: PANTOprazole SOD 40 MG TAB PO SCH (09:00)
[2017-11-05] MEDS ORDERED: LEValbuterol HFA 15GM INHALER INH SCH ×2 (09:00→12:00)
--- NOTE | 2017-11-05 11:01 | Cardiology Consultation ---
Cardiology Consultation Date of Consultation: Nov 05, 2017. Requesting Physician: Dr. Paniagua Reason for Consultation: AF, pacer Pt evaluation today including: physical exam, lab review, review of studies, review of inpatient medication list, conversation w/ attending History of Present Illness This is a 86-year-old woman who presented in the latter part of 2009 with neurologic symptoms as well as syncope and was observed to have first degree AV block and left bundle branch block. She had several episodes of syncope before this presentation and it seemed very likely that it was bradycardic induced. She therefore underwent dual-chamber pacemaker implantation on June 09, 2010 with a [employer] Adapta model ADDR L1. She has had no further syncope. She was last seen in the office January 22, 2017 and appeared to be doing well from the cardiovascular standpoint. Based on records from [facility] she was in a alf facility and was discharged home, her Lasix was discontinued at home and she presented to [facility] in congestive heart failure. She was diuresed, had hypotension and required a short ICU stay. She was then sent to [facility] for rehabilitation. On admission there on October 19, 2017 she was confused. There she developed shortness of breath and was sent to the [facility] emergency room for treatment of this. Here she had evidence of CO2 retention, she failed conservative treatment including BiPAP and therefore required intubation and admission and was transferred to ICU. Her chest x-ray does not seem to so significant congestive heart failure although she does have pleural effusions. She is also been in atrial fibrillation, rate has been reasonably well- controlled and it appears that her atrial fibrillation has been present since September 14, 2017 based on pacemaker evaluation. From her records she is not anticoagulated due to a risk of falling. I do not see an echocardiogram in the hospital records or our office records since 2009. Currently she is intubated and sedated but appears comfortable. Past Medical/Surgical History (1) Carotid artery disease (2) Hypothyroidism (3) Hypertension (4) Asthma (5) Mitral Valve Disorder (6) Knee Joint Replacement Status Family History Cancer Diabetes mellitus Heart disease Social History Smoking Status: Never Smoker History of Alcohol Use: No Review of Systems The patient is intubated and sedated, review of systems cannot be obtained. Allergies Coded Allergies: Adhesives (Verified Allergy, Unknown, RXN TO TAPE, 11/04/17) Penicillins (Verified Allergy, Unknown, RXN TO AMOXICILLIN, 11/04/17) Medications Current Inpatient Medications Medications (Trade) Dose Ordered Sig/Mak Route Start Time Stop Time Status Last Admin Dose Admin Heparin Sodium (Porcine) (Heparin Sq 5000 Unit/0.5ml) 5,000 unit Q8H SQ 11/05/17 06:00 12/05/17 05:59 11/05/17 05:37 5,000 UNIT Acetaminophen (Tylenol Tab) 650 mg Q4H PRN PO 11/05/17 01:00 12/05/17 00:59 Ondansetron HCl (Zofran Inj) 4 mg Q6H PRN IV 11/05/17 01:00 12/05/17 00:59 Miscellaneous Information (Icu Protocol For Hyperglycemia) 1 ea PRN PRN N/A 11/05/17 01:00 11/07/17 00:59 Methylprednisolone Sodium Succinate 40 mg/Syringe 0.64 ml @ 1.5 mls/min Q8H IV 11/05/17 04:00 12/05/17 03:59 11/05/17 03:51 1.5 MLS/MIN Aspirin (Aspirin Chew) 81 mg QAM NG 11/05/17 09:00 12/05/17 08:59 11/05/17 08:55 81 MG Atorvastatin Calcium (Lipitor Tab) 40 mg DAILY NG 11/05/17 09:00 12/05/17 08:59 11/05/17 08:55 40 MG Digoxin (Lanoxin Tab) 0.125 mg DAILY@1600 NG 11/05/17 16:00 12/05/17 15:59 Diltiazem HCl (Cardizem Tab) 30 mg TID NG 11/05/17 09:00 12/05/17 08:59 11/05/17 08:55 30 MG Furosemide (Lasix Tab) 20 mg DAILY NG 11/05/17 09:00 12/05/17 08:59 11/05/17 08:55 20 MG Latanoprost (Xalatan Oph Soln) 1 drops HS OPB 11/05/17 21:00 12/05/17 20:59 Levothyroxine Sodium (Synthroid Tab) 88 mcg DAILYBB NG 11/05/17 06:00 12/05/17 05:59 11/05/17 05:35 88 MCG Magnesium Hydroxide (Milk Of Magnesia Susp) 30 ml DAILY PRN PO 11/05/17 01:30 12/05/17 01:29 Docusate Sodium (coLACE CAP) 100 mg BID PRN PO 11/05/17 02:00 12/05/17 01:59 Insulin Aspart (novoLOG ASPART) SLIDING SCALE If C... Q6 SC 11/05/17 06:00 12/05/17 05:59 11/05/17 05:33 1 UNITS Glucose (Glucose 40% Gel) 15-30 GRAMS 15 GRAMS... UD PRN PO 11/05/17 01:45 12/05/17 01:44 Glucose (Glucose Chew Tab) 4-8 Tablets 4 Tabl... UD PRN PO 11/05/17 01:45 12/05/17 01:44 Dextrose (Dextrose 50% 50ML Syringe) 25-50ML OF 50% DW IV FOR... UD PRN IV 11/05/17 01:45 12/05/17 01:44 Glucagon (Glucagon Inj) 1 mg UD PRN SQ 11/05/17 01:45 12/05/17 01:44 Lansoprazole (Prevacid Solutab) 30 mg DAILY NG 11/05/17 09:00 12/05/17 08:59 11/05/17 08:55 30 MG Midazolam HCl (Versed Inj) 2 mg Q2H PRN IV 11/05/17 02:15 12/05/17 02:14 11/05/17 03:27 2 MG Sodium Chloride 1,000 ml @ 100 mls/hr Q10H IV 11/05/17 03:00 12/05/17 02:59 11/05/17 03:48 100 MLS/HR Fentanyl Citrate (Fentanyl Inj) 50 mcg Q2H PRN IV 11/05/17 03:30 11/19/17 03:29 11/05/17 03:37 50 MCG Levalbuterol (Xopenex Hfa Inhaler) 4 puffs QID INH 11/05/17 09:00 12/05/17 08:59 11/05/17 07:15 4 PUFFS Physical Exam Vital Signs Past 12 Hours Date Time Temp Pulse Resp B/P (MAP) Pulse Ox O2 Delivery O2 Flow Rate FiO2 11/05/17 09:30 37.1 82 14 120/70 (87) 95 Mechanical Ventilator 30 11/05/17 09:00 30 11/05/17 07:30 Mechanical Ventilator 30 11/05/17 07:30 37.1 74 14 130/60 (83) 97 Mechanical Ventilator 30 11/05/17 07:30 30 11/05/17 07:15 30 11/05/17 07:00 70 130/60 (83) 97 11/05/17 06:30 69 98 11/05/17 06:00 64 120/58 (78) 98 11/05/17 05:30 30 11/05/17 05:30 70 14 98 11/05/17 05:00 68 14 116/66 (83) 11/05/17 04:59 40 11/05/17 04:31 89 4 133/50 (77) 11/05/17 04:30 95 14 83 11/05/17 04:15 36.7 71 14 117/55 (75) 98 11/05/17 04:00 40 11/05/17 04:00 98 Mechanical Ventilator 40 11/05/17 04:00 74 14 117/63 (81) 99 11/05/17 03:45 80 20 88/54 (65) 99 11/05/17 03:30 82 20 117/63 (81) 97 11/05/17 03:15 80 20 110/65 (80) 97 11/05/17 03:00 83 16 115/55 (75) 97 11/05/17 02:45 80 20 86/51 (63) 98 11/05/17 02:42 36.7 86 20 82/51 98 Mechanical Ventilator 40 11/05/17 02:31 87 20 104/59 (74) 99 11/05/17 02:30 93 32 97 11/05/17 02:20 40 11/05/17 02:10 60 11/05/17 02:00 112 172/100 100 11/05/17 01:50 100 11/05/17 01:48 130 11/05/17 01:45 131 16 188/128 100 Mechanical Ventilator 11/05/17 01:40 114 0 147/113 100 Mechanical Ventilator 11/05/17 01:38 82 139/77 100 Mechanical Ventilator 11/05/17 01:28 75 11/05/17 01:05 70 11/05/17 01:05 74 19 96 BiPAP 11/05/17 00:35 83 27 97 BiPAP 11/05/17 00:05 90 24 92 BiPAP 11/05/17 00:00 85 16 93 BiPAP 11/04/17 23:03 121/87 11/04/17 23:03 102 18 121/87 94 Room Air 11/04/17 23:00 94 25 94 BiPAP Constitutional: Level of Distress: NAD Psychiatric: Mental Status: active & alert Head: normocephalic Eyes: EOM: EOMI ENMT: normal ENT inspection Neck: supple, no masses Lungs: Respiratory effort: no dyspnea, good air movement Auscultation: no wheezing, no rales/crackles Cardiovascular: Heart Auscultation: no rubs, no gallops, II/ WSM, irregular rate rhythm Peripheral Pulses: Bruits: none appreciated Abdomen: Bowel Sounds: normal Inspection & Palpation: soft, no tenderness, guarding & rebound, no masses Extremities: no edema Neurologic: Cranial Nerves: grossly intact Sensation: grossly intact Data Laboratory Results: Last 24 Hours Test 11/04/17 22:48 11/05/17 01:28 11/05/17 02:30 11/05/17 03:49 White Blood Count 7.65 K/uL Red Blood Count 4.44 M/uL Hemoglobin 14.2 g/dL Hematocrit 42.8 % Mean Corpuscular Volume 96.4 fL Mean Corpuscular Hemoglobin 32.0 pg Mean Corpuscular Hemoglobin Concent 33.2 g/dl Platelet Count 237 K/uL Mean Platelet Volume 8.5 fL Neutrophils (%) (Auto) 95.2 % Lymphocytes (%) (Auto) 3.4 % Monocytes (%) (Auto) 0.9 % Eosinophils (%) (Auto) 0.0 % Basophils (%) (Auto) 0.1 % Neutrophils # (Auto) 7.28 K/uL Lymphocytes # (Auto) 0.26 K/uL Monocytes # (Auto) 0.07 K/uL Eosinophils # (Auto) 0.00 K/uL Basophils # (Auto) 0.01 K/uL RDW Standard Deviation 54.4 fL RDW Coefficient of Variation 15.4 % Immature Granulocyte % (Auto) 0.4 % Immature Granulocyte # (Auto) 0.03 K/uL Prothrombin Time 9.9 SECONDS Prothromb Time International Ratio 0.9 Activated Partial Thromboplast Time 28.0 SECONDS Partial Thromboplastin Ratio 1.1 Venous Blood pH 7.29 Venous Blood Partial Pressure CO2 70 mmHg Venous Blood Partial Pressure O2 42 mmHg Venous Blood HCO3 33 mmol/L Venous Blood Oxygen Saturation 72.4 % Venous Blood Base Excess 3.8 mEq/L Sodium Level 128 mmol/L Potassium Level 5.0 mmol/L Chloride Level 91 mmol/L Carbon Dioxide Level 31 mmol/L Anion Gap 6.0 mmol/L Blood Urea Nitrogen 25 mg/dl Creatinine 1.19 mg/dl Est Creatinine Clear Calc Drug Dose 42.5 ml/min Estimated GFR () 48.2 Estimated GFR (Non- 41.6 BUN/Creatinine Ratio 21.1 Random Glucose 194 mg/dl Calcium Level 9.1 mg/dl Magnesium Level 2.2 mg/dl Total Bilirubin 0.6 mg/dl Aspartate Amino Transf (AST/SGOT) 18 U/L Alanine Aminotransferase (ALT/SGPT) 32 U/L Alkaline Phosphatase 100 U/L Troponin I < 0.015 ng/ml Pro-B-Type Natriuretic Peptide 878 pg/ml Total Protein 7.8 gm/dl Albumin 3.2 gm/dl Globulin 4.6 gm/dl Albumin/Globulin Ratio 0.7 Arterial Blood pH 7.25 Arterial Blood Partial Pressure CO2 75 mmHg Arterial Blood Partial Pressure O2 275 mm/Hg Arterial Blood HCO3 32 mmol/L Arterial Blood Oxygen Saturation 99.7 % Arterial Blood Base Excess 2.4 mEq/L Arterial Blood Gas Delivery 100% Liborio Test POS Pass Urine Color YELLOW Urine Appearance CLEAR Urine pH 5.0 Urine Specific Wh[place] 1.011 Urine Protein NEG Urine Glucose (UA) NEG Urine Ketones NEG Urine Occult Blood NEG Urine Nitrite NEG Urine Bilirubin NEG Urine Urobilinogen NEG Urine Leukocyte Esterase NEG Blood Gas Sample Site L Radial Bedside Blood Gas pH (LAB) 7.51 Bedside Blood Gas pCO2 (LAB) 31 mmHg Bedside Blood Gas pO2 (LAB) 93 mmHg Bedside Blood Gas HCO3 (LAB) 25 meq/L Bedside Blood Gas Total CO2 26 mEq/l Bedside Blood Gas Base Excess (LAB) 2.0 meq/L Bedside Blood Gas O2 Saturation 98.0 % Oxygen Delivery Device Ventilator Bedside Oxygen Rate (breaths/min) 20 Blood Gas Minute Ventilation 10 Bedside FiO2 40 % Blood Gas Tidal Volume 550 Blood Gas PEEP 8 Test 11/05/17 04:03 11/05/17 05:22 11/05/17 05:25 11/05/17 09:36 White Blood Count 4.30 K/uL Red Blood Count 4.09 M/uL Hemoglobin 13.1 g/dL Hematocrit 39.2 % Mean Corpuscular Volume 95.8 fL Mean Corpuscular Hemoglobin 32.0 pg Mean Corpuscular Hemoglobin Concent 33.4 g/dl RDW Standard Deviation 53.1 fL RDW Coefficient of Variation 15.1 % Platelet Count 225 K/uL Mean Platelet Volume 8.7 fL Sodium Level 128 mmol/L Potassium Level 5.3 mmol/L Chloride Level 92 mmol/L Carbon Dioxide Level 28 mmol/L Anion Gap 8.0 mmol/L Blood Urea Nitrogen 27 mg/dl Creatinine 1.38 mg/dl Est Creatinine Clear Calc Drug Dose 34.3 ml/min Estimated GFR () 40.3 Estimated GFR (Non- 34.8 BUN/Creatinine Ratio 19.8 Random Glucose 206 mg/dl Estimated Average Glucose 131 mg/dl Hemoglobin A1c 6.2 % Lactic Acid Level 4.7 mmol/L Calcium Level 8.7 mg/dl Magnesium Level 2.2 mg/dl Procalcitonin 0.11 ng/ml Thyroid Stimulating Hormone (TSH) 0.312 uIu/ml Free Thyroxine 1.41 ng/dl Digoxin Level 1.2 ng/ml Blood Gas Sample Site L Radial R Radial Bedside Blood Gas pH (LAB) 7.54 7.41 Bedside Blood Gas pCO2 (LAB) 35 mmHg 46 mmHg Bedside Blood Gas pO2 (LAB) 119 mmHg 80 mmHg Bedside Blood Gas HCO3 (LAB) 30 meq/L 29 meq/L Bedside Blood Gas Total CO2 31 mEq/l 30 mEq/l Bedside Blood Gas Base Excess (LAB) 7.0 meq/L 4.0 meq/L Bedside Blood Gas O2 Saturation 99.0 % 96.0 % Liborio Test Pass Pass Oxygen Delivery Device Ventilator Ventilator Bedside Oxygen Rate (breaths/min) 14 Blood Gas Minute Ventilation 7.7 Bedside FiO2 40 % 30 % Blood Gas Tidal Volume 550 Blood Gas PEEP 8 Bedside Glucose 183 mg/dl Blood Gas High PEEP Setting 8 Blood Gas Low PEEP Setting 5 Imaging: Chest x-ray shows good pacemaker lead placement, pleural effusions but no significant congestive heart failure EKG: Atrial fibrillation with a heart rate of 90 bpm, left bundle branch block Telemetry reviewed: Atrial fibrillation, appropriate pacemaker inhibition Pacemaker evaluation: Atrial fibrillation since September 14, 2017, heart rate reasonably well-controlled during atrial fibrillation. Pacemaker working well. Assessment & Plan 1. Atrial fibrillation: She evidently went into atrial fibrillation on September 14, 2017, I do not have the exact dates but she was probably ill at that time and that may have led to the atrial arrhythmia. She has not been anticoagulated. My recommendation would be to strongly consider anticoagulation , perhaps when she is over her acute event currently, and then consider cardioversion. Even if we do not continue anticoagulation over the long run she would be better off in sinus rhythm and in the past she did not have a history of atrial fibrillation. Rate control at the moment appears adequate under the circumstances. 2. Pacemaker: Her pacemaker is working well, she is not using it much during atrial fibrillation, before that she was atrially pacing for the most part rather than ventricular pacing. 3. Left ventricular function: We have not had an echocardiogram for some time, it would be worthwhile doing want to make sure she has not developed left ventricular dysfunction through her recent illnesses. Thank you for allowing me to participate in her care.
[2017-11-05] MEDS ORDERED: SODIUM CHLORIDE 0.9% 500ML 500 ML IV ONE (11:15)
[2017-11-05 12:35] LABS: CALCIUM 8.5 mg/dl (8.5-10.1); CREATININE 0.98 mg/dl (0.60-1.20); POTASSIUM 4.9 mmol/L (3.5-5.1)
[2017-11-05] MEDS ORDERED: ETOMIDATE 2 MG/ML 20 ML VIAL IV ONE (14:01)
[2017-11-05] MEDS ORDERED: FENTANYL CITRATE INJ 50 MCG/1 ML 2 ML VIAL IV ONE (14:01)
[2017-11-05] MEDS ORDERED: SUCCINYLCHOLINE CHLORIDE 20 MG/ML 10 ML VIAL IV ONE (14:01)
[2017-11-05] MEDS ORDERED: MIDAZOLAM HCL 5 MG/ML 1 ML VIAL IV ONE (14:01)
--- NOTE | 2017-11-05 15:30 | ECHOCARDIOGRAM REPORT ---
*NOTICE TO RECEIVING REPUBLICAN AGENCY This information is strictly Confidential and protected under [place] law. [place] law prohibits you from making any further disclosure of this information unless further disclosure is expressly permitted by the written consent of the person to whom it pertains or is authorized by law. A general authorization for the release of medical or other information is not sufficient for this purpose. Hospital accepts no responsibility if the information is made available to any other person, INCLUDING THE PATIENT. Interpretation Summary * Name: ROSLYN RODRIGUEZ Study Date: 11/05/2017 07:08 AM BP: 82/51 mmHg * Patient Location: .MSICU\S\E106\S\1 HR: 86 * : 1930 (M/d/yy) Gender: Female Height: 67 in * Age: 87 yrs Ethnicity: CA Weight: 218 lb * Ordering Physician: Nathan Collier * Referring Physician: Self, Referred * Performed By: Laura Celis RDCS * * Reason For Study: Congestive Heart Failure * BSA: 2.1 m2 * Grossly normal valvular structure and function. * -- Conclusions -- * This is a technically limited study * The left ventricle is grossly normal size. * Left ventricular systolic function is normal. * Ejection Fraction = 55-60%. * The right ventricular systolic function is normal. * Grossly normal valvular structure and function. Procedure Details * A complete two-dimensional transthoracic echocardiogram was performed (2D, M-mode, Doppler and color flow Doppler). * The study was technically difficult. * The study was technically difficult, but visualization was adequate with the administration of Definity ultrasound contrast. * There were technical limitations due to patient'spoor positioning * A contrast injection of Definity was performed to improve assessment of LV function. * Contrast was injected into an intravenous site in the right arm. * One vial of Definity ultrasound contrast was diluted in normal saline to a total volume of 10 ml. A total of '2' ml of solution was administered during imaging. * Lot # [id number] of Definity utilized for procedure. * Expiration date 1Apr19. * The attending nurse who injected the contrast agent was Dario Perez RN. Left Ventricle * The left ventricle is grossly normal size. * Ejection Fraction = 55-60%. * Left ventricular systolic function is normal. Right Ventricle * The right ventricle is grossly normal size. * The right ventricular systolic function is normal. Atria * The left atrial size is normal. * Right atrium not well visualized. Mitral Valve * The mitral valve is grossly normal. * Significant mitral regurgitation is absent. Tricuspid Valve * The tricuspid valve anatomy is normal. * Significant tricuspid regurgitation is absent. Aortic Valve * The aortic valve is not well visualized. * No hemodynamically significant valvular aortic stenosis. * There is no significant aortic regurgitation. MMode 2D Measurements and Calculations IVSd 1.4 cm IVSs 1.6 cm LVIDd 3.1 cm LVIDs 2.3 cm LVPWd 1.4 cm LVPWs 2.0 cm IVS/LVPW 1.0 FS 25.7 % EDV(Teich) 38.8 ml ESV(Teich) 18.6 ml EF(Teich) 52.1 % EDV(cubed) 30.6 ml ESV(cubed) 12.5 ml EF(cubed) 59.1 % % IVS thick 9.4 % % LVPW thick 43.3 % LV mass(C)d 149.7 grams LV mass(C)dI 71.4 grams/m\S\2 LV mass(C)s 158.5 grams LV mass(C)sI 75.6 grams/m\S\2 SV(Teich) 20.2 ml SI(Teich) 9.6 ml/m\S\2 SV(cubed) 18.1 ml SI(cubed) 8.6 ml/m\S\2 Ao root diam 3.4 cm Ao root area 9.0 cm\S\2 ACS 2.0 cm LA dimension 2.3 cm LA/Ao 0.69 LVAd ap4 20.8 cm\S\2 LVLd ap4 6.5 cm EDV(MOD-sp4) 55.7 ml EDV(sp4-el) 57.1 ml LVAs ap4 13.6 cm\S\2 LVLs ap4 6.1 cm ESV(MOD-sp4) 24.5 ml ESV(sp4-el) 25.7 ml EF(MOD-sp4) 56.1 % EF(sp4-el) 55.0 % LVAd ap2 22.3 cm\S\2 LVLd ap2 6.6 cm EDV(MOD-sp2) 60.0 ml EDV(sp2-el) 64.4 ml LVAs ap2 12.7 cm\S\2 LVLs ap2 5.3 cm ESV(MOD-sp2) 24.1 ml ESV(sp2-el) 25.8 ml EF(MOD-sp2) 59.9 % EF(sp2-el) 60.0 % LVLd %diff 1.5 % EDV(MOD-bp) 59.0 ml LVLs %diff -14.70 % ESV(MOD-bp) 25.1 ml EF(MOD-bp) 57.5 % SV(MOD-sp4) 31.3 ml SI(MOD-sp4) 14.9 ml/m\S\2 SV(MOD-sp2) 35.9 ml SI(MOD-sp2) 17.1 ml/m\S\2 SV(MOD-bp) 34.0 ml SI(MOD-bp) 16.2 ml/m\S\2 SV(sp4-el) 31.4 ml SI(sp4-el) 15.0 ml/m\S\2 SV(sp2-el) 38.6 ml SI(sp2-el) 18.4 ml/m\S\2 Doppler Measurements and Calculations MV E max parviz 88.8 cm/sec MV A max parviz 39.3 cm/sec MV E/A 2.3 MV dec time 0.27 sec Ao V2 max 139.9 cm/sec Ao max PG 7.8 mmHg Ao max PG (full) 2.1 mmHg AI max parviz 323.1 cm/sec AI max PG 41.7 mmHg AI dec slope 155.2 cm/sec\S\2 AI P1/2t 609.7 msec LV V1 max PG 5.7 mmHg LV V1 max 119.3 cm/sec PA V2 max 81.2 cm/sec PA max PG 2.6 mmHg PI max parviz 77.6 cm/sec PI max PG 2.4 mmHg PI dec slope 66.1 cm/sec\S\2 PI P1/2t 344.1 msec TR max parviz 228.8 cm/sec
[2017-11-05] MEDS: DIGOXIN 0.125 MG TAB NG SCH ×3 (16:00→17:03)
--- NOTE | 2017-11-05 18:19 | Progress Note ---
Medicine Progress Note Date & Time of Visit: Nov 05, 2017 at 17:54. Subjective Pt was seen and examined Lying in bed with no respiratory distress Feeling very sleepy and cannot keep her eyes open Able to open her eyes when i called her name Follow minimal commands Objective Last 8 Hrs Date Time Temp Pulse Resp B/P (MAP) Pulse Ox O2 Delivery O2 Flow Rate FiO2 11/05/17 17:03 70 11/05/17 16:00 36.3 63 15 102/47 (65) 94 Nasal Cannula 2.0 11/05/17 16:00 98 Nasal Cannula 2.0 11/05/17 13:30 37.3 69 16 120/56 (77) 98 Nasal Cannula 3.0 11/05/17 13:00 68 22 120/56 (77) 94 11/05/17 12:00 70 24 115/55 (75) 96 11/05/17 11:30 37.3 72 16 135/63 (87) 95 Nasal Cannula 4.0 11/05/17 11:30 Nasal Cannula 4.0 30 11/05/17 11:01 82 135/53 (80) 92 11/05/17 11:00 85 90 11/05/17 10:56 87 152/64 (93) 91 11/05/17 10:01 118 150/90 (110) 97 11/05/17 10:00 113 96 Physical Exam: General- Lethargy, unable to stay awake Head- atraumatic Eyes- PERRL, EOMI ENT- oropharynx clear Neck- supple, no JVD Lungs- No wheezing Heart- irregular rhythm, +murmur Abdomen- normal bowel sounds, soft Extremities- No calf tenderness Neuro- Lethargy, follow minimal command Skin- warm & dry Laboratory Results: Last 24 Hours Test 11/04/17 22:48 11/05/17 01:28 11/05/17 02:30 11/05/17 03:49 White Blood Count 7.65 K/uL Red Blood Count 4.44 M/uL Hemoglobin 14.2 g/dL Hematocrit 42.8 % Mean Corpuscular Volume 96.4 fL Mean Corpuscular Hemoglobin 32.0 pg Mean Corpuscular Hemoglobin Concent 33.2 g/dl Platelet Count 237 K/uL Mean Platelet Volume 8.5 fL Neutrophils (%) (Auto) 95.2 % Lymphocytes (%) (Auto) 3.4 % Monocytes (%) (Auto) 0.9 % Eosinophils (%) (Auto) 0.0 % Basophils (%) (Auto) 0.1 % Neutrophils # (Auto) 7.28 K/uL Lymphocytes # (Auto) 0.26 K/uL Monocytes # (Auto) 0.07 K/uL Eosinophils # (Auto) 0.00 K/uL Basophils # (Auto) 0.01 K/uL RDW Standard Deviation 54.4 fL RDW Coefficient of Variation 15.4 % Immature Granulocyte % (Auto) 0.4 % Immature Granulocyte # (Auto) 0.03 K/uL Prothrombin Time 9.9 SECONDS Prothromb Time International Ratio 0.9 Activated Partial Thromboplast Time 28.0 SECONDS Partial Thromboplastin Ratio 1.1 Venous Blood pH 7.29 Venous Blood Partial Pressure CO2 70 mmHg Venous Blood Partial Pressure O2 42 mmHg Venous Blood HCO3 33 mmol/L Venous Blood Oxygen Saturation 72.4 % Venous Blood Base Excess 3.8 mEq/L Sodium Level 128 mmol/L Potassium Level 5.0 mmol/L Chloride Level 91 mmol/L Carbon Dioxide Level 31 mmol/L Anion Gap 6.0 mmol/L Blood Urea Nitrogen 25 mg/dl Creatinine 1.19 mg/dl Est Creatinine Clear Calc Drug Dose 42.5 ml/min Estimated GFR () 48.2 Estimated GFR (Non- 41.6 BUN/Creatinine Ratio 21.1 Random Glucose 194 mg/dl Calcium Level 9.1 mg/dl Magnesium Level 2.2 mg/dl Total Bilirubin 0.6 mg/dl Aspartate Amino Transf (AST/SGOT) 18 U/L Alanine Aminotransferase (ALT/SGPT) 32 U/L Alkaline Phosphatase 100 U/L Troponin I < 0.015 ng/ml Pro-B-Type Natriuretic Peptide 878 pg/ml Total Protein 7.8 gm/dl Albumin 3.2 gm/dl Globulin 4.6 gm/dl Albumin/Globulin Ratio 0.7 Arterial Blood pH 7.25 Arterial Blood Partial Pressure CO2 75 mmHg Arterial Blood Partial Pressure O2 275 mm/Hg Arterial Blood HCO3 32 mmol/L Arterial Blood Oxygen Saturation 99.7 % Arterial Blood Base Excess 2.4 mEq/L Arterial Blood Gas Delivery 100% Lib[place] Test POS Pass Urine Color YELLOW Urine Appearance CLEAR Urine pH 5.0 Urine Specific [place] 1.011 Urine Protein NEG Urine Glucose (UA) NEG Urine Ketones NEG Urine Occult Blood NEG Urine Nitrite NEG Urine Bilirubin NEG Urine Urobilinogen NEG Urine Leukocyte Esterase NEG Blood Gas Sample Site L Radial Bedside Blood Gas pH (LAB) 7.51 Bedside Blood Gas pCO2 (LAB) 31 mmHg Bedside Blood Gas pO2 (LAB) 93 mmHg Bedside Blood Gas HCO3 (LAB) 25 meq/L Bedside Blood Gas Total CO2 26 mEq/l Bedside Blood Gas Base Excess (LAB) 2.0 meq/L Bedside Blood Gas O2 Saturation 98.0 % Oxygen Delivery Device Ventilator Bedside Oxygen Rate (breaths/min) 20 Blood Gas Minute Ventilation 10 Bedside FiO2 40 % Blood Gas Tidal Volume 550 Blood Gas PEEP 8 Test 11/05/17 04:03 11/05/17 05:22 11/05/17 05:25 11/05/17 09:36 White Blood Count 4.30 K/uL Red Blood Count 4.09 M/uL Hemoglobin 13.1 g/dL Hematocrit 39.2 % Mean Corpuscular Volume 95.8 fL Mean Corpuscular Hemoglobin 32.0 pg Mean Corpuscular Hemoglobin Concent 33.4 g/dl RDW Standard Deviation 53.1 fL RDW Coefficient of Variation 15.1 % Platelet Count 225 K/uL Mean Platelet Volume 8.7 fL Sodium Level 128 mmol/L Potassium Level 5.3 mmol/L Chloride Level 92 mmol/L Carbon Dioxide Level 28 mmol/L Anion Gap 8.0 mmol/L Blood Urea Nitrogen 27 mg/dl Creatinine 1.38 mg/dl Est Creatinine Clear Calc Drug Dose 34.3 ml/min Estimated GFR () 40.3 Estimated GFR (Non- 34.8 BUN/Creatinine Ratio 19.8 Random Glucose 206 mg/dl Estimated Average Glucose 131 mg/dl Hemoglobin A1c 6.2 % Lactic Acid Level 4.7 mmol/L Calcium Level 8.7 mg/dl Magnesium Level 2.2 mg/dl Procalcitonin 0.11 ng/ml Thyroid Stimulating Hormone (TSH) 0.312 uIu/ml Free Thyroxine 1.41 ng/dl Digoxin Level 1.2 ng/ml Blood Gas Sample Site L Radial R Radial Bedside Blood Gas pH (LAB) 7.54 7.41 Bedside Blood Gas pCO2 (LAB) 35 mmHg 46 mmHg Bedside Blood Gas pO2 (LAB) 119 mmHg 80 mmHg Bedside Blood Gas HCO3 (LAB) 30 meq/L 29 meq/L Bedside Blood Gas Total CO2 31 mEq/l 30 mEq/l Bedside Blood Gas Base Excess (LAB) 7.0 meq/L 4.0 meq/L Bedside Blood Gas O2 Saturation 99.0 % 96.0 % Liborio Test Pass Pass Oxygen Delivery Device Ventilator Ventilator Bedside Oxygen Rate (breaths/min) 14 Blood Gas Minute Ventilation 7.7 Bedside FiO2 40 % 30 % Blood Gas Tidal Volume 550 Blood Gas PEEP 8 Bedside Glucose 183 mg/dl Blood Gas High PEEP Setting 8 Blood Gas Low PEEP Setting 5 Test 11/05/17 11:26 11/05/17 12:10 11/05/17 17:37 Bedside Glucose 212 mg/dl 147 mg/dl Sodium Level 130 mmol/L Potassium Level 4.9 mmol/L Chloride Level 96 mmol/L Carbon Dioxide Level 29 mmol/L Anion Gap 5.0 mmol/L Blood Urea Nitrogen 26 mg/dl Creatinine 0.98 mg/dl Est Creatinine Clear Calc Drug Dose 48.2 ml/min Estimated GFR () 61.0 Estimated GFR (Non- 52.6 BUN/Creatinine Ratio 26.5 Random Glucose 147 mg/dl Lactic Acid Level 1.9 mmol/L Calcium Level 8.5 mg/dl Date/Time Source Procedure Growth Status 11/04/17 22:48 Blood Blood Culture Pending Received 11/04/17 22:15 Blood Blood Culture Pending Received 11/05/17 02:30 Nasal MRSA DNA Surveillance Screen - Final Specimen Negative for MRSA by DNA Probe Complete Assessment & Plan Acute Respiratory failure with hypercapnia: Secondary to Asthma Exacerbation VBG on admission showed PCO2 70 and Ph 7.2 Was intubated on admission Repeat CXR showed extensive left basilar consolidation with moderate left pleural effusion. S/P extubation today Continue oxygen supplement case discussed with Advanced Nursing Professor Since pt is very lethargy Plan to get a VBG and consider bipap trial Blood cx pending No leukocytosis and afebrile with normal procalcitonin Continue solumedrol and neb treatment Continue monitor in the ICU Chronic CHF: No signs of acute exacerbation CXR showed moderate left pleural effusion. BNP on admission normal Continue lasix 20mg daily Cardiology on board ECHO showed * The left ventricle is grossly normal size. * Left ventricular systolic function is normal. * Ejection Fraction = 55-60%. * The right ventricular systolic function is normal. * Grossly normal valvular structure and function. Atrial fibrillation RVR Currently rate controlled Continue Digoxin, Diltiazem Digoxin wnl Cardiology recommended to consider to start on anticoagulant once stable, then consider cardioversion. High risk for fall Hyperglycemia Due to steroid Recent A1C 6.2 Continue monitor H/O CVA: Continue ASA, statins stable HTN: BP stable Continue BP med Carotid artery disease: Continue Statin and aspirin Hypothyroidism: TSH wnl Continue Levothyroxine Dementia: Stable Not on any meds at home DVT Px: Heparin SQ Code Status Full No cardioversion Current Inpatient Medications: Current Inpatient Medications Medications (Trade) Dose Ordered Sig/Mak Route Start Time Stop Time Status Last Admin Dose Admin Heparin Sodium (Porcine) (Heparin Sq 5000 Unit/0.5ml) 5,000 unit Q8H SQ 11/05/17 06:00 12/05/17 05:59 11/05/17 14:14 5,000 UNIT Acetaminophen (Tylenol Tab) 650 mg Q4H PRN PO 11/05/17 01:00 12/05/17 00:59 Ondansetron HCl (Zofran Inj) 4 mg Q6H PRN IV 11/05/17 01:00 12/05/17 00:59 Miscellaneous Information (Icu Protocol For Hyperglycemia) 1 ea PRN PRN N/A 11/05/17 01:00 11/07/17 00:59 Methylprednisolone Sodium Succinate 40 mg/Syringe 0.64 ml @ 1.5 mls/min Q8H IV 11/05/17 04:00 11/05/17 23:59 11/05/17 12:27 1.5 MLS/MIN Aspirin (Aspirin Chew) 81 mg QAM NG 11/05/17 09:00 12/05/17 08:59 11/05/17 08:55 81 MG Atorvastatin Calcium (Lipitor Tab) 40 mg DAILY NG 11/05/17 09:00 12/05/17 08:59 11/05/17 08:55 40 MG Digoxin (Lanoxin Tab) 0.125 mg DAILY@1600 NG 11/05/17 16:00 12/05/17 15:59 11/05/17 17:03 0.125 MG Diltiazem HCl (Cardizem Tab) 30 mg TID NG 11/05/17 09:00 12/05/17 08:59 11/05/17 14:12 30 MG Furosemide (Lasix Tab) 20 mg DAILY NG 11/05/17 09:00 12/05/17 08:59 11/05/17 08:55 20 MG Latanoprost (Xalatan Oph Soln) 1 drops HS OPB 11/05/17 21:00 12/05/17 20:59 Levothyroxine Sodium (Synthroid Tab) 88 mcg DAILYBB NG 11/05/17 06:00 12/05/17 05:59 11/05/17 05:35 88 MCG Magnesium Hydroxide (Milk Of Magnesia Susp) 30 ml DAILY PRN PO 11/05/17 01:30 12/05/17 01:29 Docusate Sodium (coLACE CAP) 100 mg BID PRN PO 11/05/17 02:00 12/05/17 01:59 Insulin Aspart (novoLOG ASPART) SLIDING SCALE If C... Q6 SC 11/05/17 06:00 12/05/17 05:59 11/05/17 12:30 3 UNITS Glucose (Glucose 40% Gel) 15-30 GRAMS 15 GRAMS... UD PRN PO 11/05/17 01:45 12/05/17 01:44 Glucose (Glucose Chew Tab) 4-8 Tablets 4 Tabl... UD PRN PO 11/05/17 01:45 12/05/17 01:44 Dextrose (Dextrose 50% 50ML Syringe) 25-50ML OF 50% DW IV FOR... UD PRN IV 11/05/17 01:45 12/05/17 01:44 Glucagon (Glucagon Inj) 1 mg UD PRN SQ 11/05/17 01:45 12/05/17 01:44 Lansoprazole (Prevacid Solutab) 30 mg DAILY NG 11/05/17 09:00 12/05/17 08:59 11/05/17 08:55 30 MG Midazolam HCl (Versed Inj) 2 mg Q2H PRN IV 11/05/17 02:15 12/05/17 02:14 11/05/17 03:27 2 MG Sodium Chloride 1,000 ml @ 100 mls/hr Q10H IV 11/05/17 03:00 12/05/17 02:59 11/05/17 12:27 100 MLS/HR Fentanyl Citrate (Fentanyl Inj) 50 mcg Q2H PRN IV 11/05/17 03:30 11/19/17 03:29 11/05/17 03:37 50 MCG Prednisone (PredniSONE TAB) 40 mg QAM PO 11/06/17 09:00 11/09/17 09:01 Levalbuterol (Xopenex 1.25MG/ 3ML Neb) 1.25 mg QIDR PRN INH 11/05/17 11:30 12/05/17 11:29
[2017-11-05] MEDS: LATANOPROST 0.005% OP SOLN 2.5 ML BTL OPB SCH (21:01)
[2017-11-06] VITALS (21 sets, daily range): BP systolic 95–157; BP diastolic 47–84; PULSE 59–89; TEMP 36.5–37.1; O2SAT 90–97
[2017-11-06] MEDS: SODIUM CHLORIDE 0.9% 1000ML 1,000 ML IV SCH (03:46)
--- NOTE | 2017-11-06 05:16 | Critical Care Progress Note ---
Critical Care Progress Note Date of Service Nov 06, 2017. ICU Day ICU Day Number: [address] Oden Subjective Complaints of mild stomach irritation, no significant pain. Slept well overnight, no chest pain no shortness of breath no palpitations Objective General: Alert. nontoxic. Skin: Warm, dry, Head: Atraumatic Ears, nose, mouth and throat: airway patent Cardiovascular: Normal peripheral perfusion Respiratory: no respiratory distress Gastrointestinal: Non distended Musculoskeletal: No deformity Assessment & Plan PLAN: Neuro: Hx of dementia at baseline Resp: Hypercarbic respiratory failure -Likely secondary to medication effect: Cough syrup -Possible contribution of obstructive sleep apnea: Patient snores very loudly when sleeping per daughter -Daughter requests pulmonary referral for outpatient follow-up No significant desaturations nor hypercarbic episodes overnight. -We will discontinue end-tidal CO2 monitoring CV: Atrial fibrillation -Chronic -Reviewed cardiology consultation - we will discuss anticoagulation with family and risks and benefits Fluids/Renal: Acute kidney injury -Adequate urine output Hyponatremia Lactic acidosis: Resolved ID: Afebrile -Left basilar consolidation GI/Nutrition: Bedside swallow study - diet as tolerated Heme: DVT prophylaxis: Heparin -Possible systemic anticoagulation Endocrine: Hyperglycemia -ICU hyperglycemia protocol Vascular access: Peripheral IVs Code Status: The patient opts for no resuscitation in event of cardiac arrest she is agreeable with intubation in terms of respiratory insufficiency/respiratory arrest. Patient stable for downgrade out of ICU today Data Medications: Current Inpatient Medications Medications (Trade) Dose Ordered Sig/Mak Route Start Time Stop Time Status Last Admin Dose Admin Heparin Sodium (Porcine) (Heparin Sq 5000 Unit/0.5ml) 5,000 unit Q8H SQ 11/05/17 06:00 12/05/17 05:59 11/05/17 21:45 5,000 UNIT Acetaminophen (Tylenol Tab) 650 mg Q4H PRN PO 11/05/17 01:00 12/05/17 00:59 Ondansetron HCl (Zofran Inj) 4 mg Q6H PRN IV 11/05/17 01:00 12/05/17 00:59 Miscellaneous Information (Icu Protocol For Hyperglycemia) 1 ea PRN PRN N/A 11/05/17 01:00 11/07/17 00:59 Aspirin (Aspirin Chew) 81 mg QAM NG 11/05/17 09:00 12/05/17 08:59 11/05/17 08:55 81 MG Atorvastatin Calcium (Lipitor Tab) 40 mg DAILY NG 11/05/17 09:00 12/05/17 08:59 11/05/17 08:55 40 MG Digoxin (Lanoxin Tab) 0.125 mg DAILY@1600 NG 11/05/17 16:00 12/05/17 15:59 11/05/17 17:03 0.125 MG Diltiazem HCl (Cardizem Tab) 30 mg TID NG 11/05/17 09:00 12/05/17 08:59 11/05/17 19:00 30 MG Furosemide (Lasix Tab) 20 mg DAILY NG 11/05/17 09:00 12/05/17 08:59 11/05/17 08:55 20 MG Latanoprost (Xalatan Oph Soln) 1 drops HS OPB 11/05/17 21:00 12/05/17 20:59 11/05/17 21:01 1 DROPS Levothyroxine Sodium (Synthroid Tab) 88 mcg DAILYBB NG 11/05/17 06:00 12/05/17 05:59 11/05/17 05:35 88 MCG Magnesium Hydroxide (Milk Of Magnesia Susp) 30 ml DAILY PRN PO 11/05/17 01:30 12/05/17 01:29 Docusate Sodium (coLACE CAP) 100 mg BID PRN PO 11/05/17 02:00 12/05/17 01:59 Insulin Aspart (novoLOG ASPART) SLIDING SCALE If C... Q6 SC 11/05/17 06:00 12/05/17 05:59 11/05/17 18:26 2 UNITS Glucose (Glucose 40% Gel) 15-30 GRAMS 15 GRAMS... UD PRN PO 11/05/17 01:45 12/05/17 01:44 Glucose (Glucose Chew Tab) 4-8 Tablets 4 Tabl... UD PRN PO 11/05/17 01:45 12/05/17 01:44 Dextrose (Dextrose 50% 50ML Syringe) 25-50ML OF 50% DW IV FOR... UD PRN IV 11/05/17 01:45 12/05/17 01:44 Glucagon (Glucagon Inj) 1 mg UD PRN SQ 11/05/17 01:45 5/11/18 01:44 Lansoprazole (Prevacid Solutab) 30 mg DAILY NG 11/05/17 09:00 12/05/17 08:59 11/05/17 08:55 30 MG Midazolam HCl (Versed Inj) 2 mg Q2H PRN IV 11/05/17 02:15 12/05/17 02:14 11/05/17 03:27 2 MG Sodium Chloride 1,000 ml @ 100 mls/hr Q10H IV 11/05/17 03:00 12/05/17 02:59 11/06/17 03:46 100 MLS/HR Fentanyl Citrate (Fentanyl Inj) 50 mcg Q2H PRN IV 11/05/17 03:30 11/19/17 03:29 11/05/17 03:37 50 MCG Prednisone (PredniSONE TAB) 40 mg QAM PO 11/06/17 09:00 11/09/17 09:01 Levalbuterol (Xopenex 1.25MG/ 3ML Neb) 1.25 mg QIDR PRN INH 11/05/17 11:30 12/05/17 11:29 Vital Signs: Date Time Temp Pulse Resp B/P (MAP) Pulse Ox O2 Delivery O2 Flow Rate FiO2 11/06/17 01:00 62 16 109/50 (76) 90 11/06/17 00:01 Nasal Cannula 2.0 11/06/17 00:00 36.5 61 17 107/47 (67) 94 Nasal Cannula 2.0 11/06/17 00:00 61 17 107/47 (70) 94 11/05/17 22:00 64 16 110/58 (75) 92 Nasal Cannula 2.0 11/05/17 20:00 98 Nasal Cannula 2.0 11/05/17 20:00 36.3 61 16 96/42 (60) 94 Nasal Cannula 2.0 11/05/17 18:01 65 19 121/53 (75) 96 Nasal Cannula 2.0 11/05/17 17:03 70 11/05/17 16:00 36.3 63 15 102/47 (65) 94 Nasal Cannula 2.0 11/05/17 16:00 98 Nasal Cannula 2.0 11/05/17 13:30 37.3 69 16 120/56 (77) 98 Nasal Cannula 3.0 11/05/17 13:00 68 22 120/56 (77) 94 11/05/17 12:00 70 24 115/55 (75) 96 11/05/17 11:30 37.3 72 16 135/63 (87) 95 Nasal Cannula 4.0 11/05/17 11:30 Nasal Cannula 4.0 30 11/05/17 11:01 82 135/53 (80) 92 11/05/17 11:00 85 90 11/05/17 10:56 87 152/64 (93) 91 11/05/17 10:01 118 150/90 (110) 97 11/05/17 10:00 113 96 11/05/17 09:30 37.1 82 14 120/70 (87) 95 Mechanical Ventilator 30 11/05/17 09:00 30 11/05/17 09:00 77 136/62 (86) 98 11/05/17 08:00 61 121/54 (76) 93 11/05/17 07:30 Mechanical Ventilator 30 11/05/17 07:30 37.1 74 14 130/60 (83) 97 Mechanical Ventilator 30 11/05/17 07:30 30 11/05/17 07:15 30 11/05/17 07:00 70 130/60 (83) 97 11/05/17 07:00 70 130/60 (83) 97 11/05/17 06:30 69 98 11/05/17 06:00 64 120/58 (78) 98 11/05/17 05:30 30 11/05/17 05:30 70 14 98 Laboratory Results: Last 24 Hours Test 11/05/17 05:22 11/05/17 05:25 11/05/17 09:36 11/05/17 11:26 Blood Gas Sample Site L Radial R Radial Bedside Blood Gas pH (LAB) 7.54 7.41 Bedside Blood Gas pCO2 (LAB) 35 mmHg 46 mmHg Bedside Blood Gas pO2 (LAB) 119 mmHg 80 mmHg Bedside Blood Gas HCO3 (LAB) 30 meq/L 29 meq/L Bedside Blood Gas Total CO2 31 mEq/l 30 mEq/l Bedside Blood Gas Base Excess (LAB) 7.0 meq/L 4.0 meq/L Bedside Blood Gas O2 Saturation 99.0 % 96.0 % Liborio Test Pass Pass Oxygen Delivery Device Ventilator Ventilator Bedside Oxygen Rate (breaths/min) 14 Blood Gas Minute Ventilation 7.7 Bedside FiO2 40 % 30 % Blood Gas Tidal Volume 550 Blood Gas PEEP 8 Bedside Glucose 183 mg/dl 212 mg/dl Blood Gas High PEEP Setting 8 Blood Gas Low PEEP Setting 5 Test 11/05/17 12:10 11/05/17 17:37 11/05/17 23:42 11/06/17 04:44 Sodium Level 130 mmol/L Potassium Level 4.9 mmol/L Chloride Level 96 mmol/L Carbon Dioxide Level 29 mmol/L Anion Gap 5.0 mmol/L Blood Urea Nitrogen 26 mg/dl Creatinine 0.98 mg/dl Est Creatinine Clear Calc Drug Dose 48.2 ml/min Estimated GFR () 61.0 Estimated GFR (Non- 52.6 BUN/Creatinine Ratio 26.5 Random Glucose 147 mg/dl Lactic Acid Level 1.9 mmol/L Calcium Level 8.5 mg/dl Bedside Glucose 147 mg/dl 147 mg/dl
[2017-11-06] MEDS: LEVALBUTEROL 1.25MG/3ML NEB INH PRN ×3 (05:40→20:54)
[2017-11-06 06:00] LABS: BASO % 0.1 %; BASO ABS # 0.01 K/uL (0-0.2); HEMATOCRIT 41.5 % (37-47); HEMOGLOBIN 13.6 g/dL (12.0-16.0); IG# 0.04 K/uL (0.00-0.02); LYMPH % 11.1 %; MEAN CELL VOLUME 97.2 fL (80-100); MEAN CORPUSCULAR HEMOGLOBIN 31.9 pg (25-34); MEAN CORPUSCULAR HGB CONC 32.8 g/dl (32-36); MEAN PLATELET VOLUME 9.1 fL (7.4-10.4); MONO % 8.9 %; MONO ABS # 0.72 K/uL (0.11-0.59); NEUT % 79.4 %; NEUT ABS # 6.44 K/uL (1.4-6.5); PLATELET COUNT 239 K/uL (130-400); RED CELL DISTRIBUTION WIDTH CV 15.5 % (11.5-14.5); WHITE BLOOD COUNT 8.11 K/uL (4.8-10.8)
[2017-11-06 06:28] LABS: CALCIUM 8.8 mg/dl (8.5-10.1); CREATININE 0.95 mg/dl (0.60-1.20); POTASSIUM 4.8 mmol/L (3.5-5.1)
[2017-11-06 06:29] LABS: PHOSPHORUS 3.7 mg/dl (2.5-4.9)
[2017-11-06] MEDS: LEVOTHYROXINE 88 MCG TAB NG SCH (06:50)
[2017-11-06] MEDS: HEPARIN SOD 5000 UNIT/0.5 ML CARP SQ SCH ×3 (06:50→20:32)
--- NOTE | 2017-11-06 07:17 | DIAGNOSTIC IMAGING REPORT ---
CHEST ONE VIEW PORTABLE CLINICAL HISTORY: 87 years-old Female presenting with s/p resp failure. TECHNIQUE: Portable upright AP view of the chest was obtained. COMPARISON: 11/05/2017. FINDINGS: Interval extubation and removal of the nasogastric tube. Left subclavian pacer with leads in the right atrium and right ventricular apex. Atherosclerosis of the aortic arch. Cardiac silhouette mildly enlarged, obscured along the left heart border. Persistent if not increased left basilar opacity. Persistent moderate left pleural effusion. Trace right pleural effusion also suspected. The right lung is clear. No large pneumothorax. Degenerative changes of the thoracic spine. Degenerative changes of the shoulders. Multiple external leads overlie the right upper quadrant degrading evaluation. IMPRESSION: 1. Interval extubation. 2. Stable to increased left basilar consolidation, likely slight increase in passive atelectasis in the setting of the moderate left pleural effusion. Electronically signed by: Jens Morgan M.D. 11/06/2017 7:16 AM Dictated Date/Time: 11/06/2017 7:14 AM
--- NOTE | 2017-11-06 08:59 | Clinical Documentation Query ---
QUERY 1 OF [address] CHAVEZ, In your clinical opinion is this patient being managed for: ( ) Chronic kidney disease, stage 3 ( ) Not Agree ( ) Other explanation of clinical findings (Please Explain) ( ) Unable to determine (Please Define) ( ) Need to Discuss The medical record reflects the following clinical findings, treatment, and risk factors. Clinical Indicators: 87 yo female presenting with respiratory failure. Documentation reflects unknown stage of CKD. Review of historical GFR revealed range of 41.5-54.6. Treatment: monitor PRP's, treat comorbid conditions Risk Factors: age, emphysema/asthma, cerebrovascular disease, CAD, HTN QUERY 2 OF 4 The diagnoses of hyponatremia and acute renal failure are noted in the documentation by cardiology. These diagnoses do you carry through to the attending's progress notes. In your clinical opinion is this patient being managed for: ( ) Hyponatremia ( ) Acute kidney injury ( ) Not Agree ( ) Other explanation of clinical findings (Please Explain) ( ) Unable to determine (Please Define) ( ) Need to Discuss QUERY 3 OF 4 In your clinical opinion is this patient being managed for: ( ) Chronic diastolic CHF ( ) Not Agree ( ) Other explanation of clinical findings (Please Explain) ( ) Unable to determine (Please Define) ( ) Need to Discuss The medical record reflects the following clinical findings, treatment, and risk factors. Clinical Indicators: Documentation reflects pt with chronic CHF. ECHO performed this visit revealed EF 55-60%. Treatment: lasix, digoxin, diltiazem, lisinopril Risk Factors: age, HTN, CKD, Cerebrovascular disease, emphysema/asthma QUERY 4 OF 4 The diagnosis of metabolic encephalopathy is noted on the H/P. It has since been removed from the documentation. In your clinical opinion is this patient being managed for: ( ) Metabolic encephalopathy treated and improving ( ) Not Agree ( ) Other explanation of clinical findings (Please Explain) ( ) Unable to determine (Please Define) ( ) Need to Discuss Please clarify and document your clinical opinion in the progress notes and discharge summary. Terms such as "probable", "suspected", "likely", "questionable", "possible", or "still to be ruled out" are acceptable. IF IN AGREEMENT, YOU MUST DOCUMENT ABOVE DIAGNOSTIC STATEMENT IN DAILY PROGRESS NOTES AND DISCHARGE SUMMARY. This document is not part of the patient's record. Thank You, Letty Wright RN [phone]
[2017-11-06] MEDS: INSULIN ASPART 100 UNITS/ML 3 ML PEN SC SCH ×4 (09:22→20:31)
[2017-11-06] MEDS: ATORVASTATIN 40 MG TAB NG SCH (09:23)
[2017-11-06] MEDS: DILTIAZEM HCL 30 MG TAB NG SCH ×3 (09:23→20:29)
[2017-11-06] MEDS: ASPIRIN 81 MG CHEW NG SCH (09:23)
[2017-11-06] MEDS: FUROSEMIDE 20 MG TAB NG SCH (09:24)
[2017-11-06] MEDS: LANSOPRAZOLE SOLUTAB 30 MG NG SCH (09:24)
[2017-11-06] MEDS ORDERED: NURSING VERBAL MED ORDER ONE (12:30)
--- NOTE | 2017-11-06 14:05 | Cardiology Follow-Up ---
Subjective Date of Service: Nov 06, 2017. Pt evaluation today including: conversation w/ patient, physical exam, lab review, review of studies, review of inpatient medication list History of Present Illness This is a 86-year-old woman who presented in the latter part of 2009 with neurologic symptoms as well as syncope and was observed to have first degree AV block and left bundle branch block. She had several episodes of syncope before this presentation and it seemed very likely that it was bradycardic induced. She therefore underwent dual-chamber pacemaker implantation on June 09, 2010 with a [employer] Adapta model ADDR L1. She has had no further syncope. She was last seen in the office January 22, 2017 and appeared to be doing well from the cardiovascular standpoint. Based on records from [facility] she was in a senior living facility and was discharged home, her Lasix was discontinued at home and she presented to [facility] in congestive heart failure. She was diuresed, had hypotension and required a short ICU stay. She was then sent to [facility] for rehabilitation. On admission there on October 19, 2017 she was confused. There she developed shortness of breath and was sent to the [facility] emergency room for treatment of this. Here she had evidence of CO2 retention, she failed conservative treatment including BiPAP and therefore required intubation and admission and was transferred to ICU. She has now been extubated however. Her chest x-ray does not seem to so significant congestive heart failure although she does have pleural effusions. She is also been in atrial fibrillation, rate has been reasonably well- controlled and it appears that her atrial fibrillation has been present since September 14, 2017 based on pacemaker evaluation. From her records she is not anticoagulated due to a risk of falling. She is sitting in bed eating lunch at the time of my evaluation, she is confused but appears to be in no distress and has no complaints. Social History Smoking Status: Never Smoker History of Alcohol Use: No Review of Systems Respiratory: No shortness of breath Cardiac: No chest pain Medications Cardiovascular: Item Value Date Time Digoxin 0.125 mg 11/05/17 1600 (Lanoxin Tab) DAILY@1600/NG 11/05/17 1703 Aspirin 81 mg 11/05/17 0900 (Aspirin Chew) QAM/NG 11/06/17 0923 Atorvastatin 40 mg 11/05/17 0900 Calcium DAILY/NG 11/06/17 0923 (Lipitor Tab) Diltiazem HCl 30 mg 11/05/17 0900 (Cardizem Tab) TID/NG 11/06/17 1349 Furosemide 20 mg 11/05/17 0900 (Lasix Tab) DAILY/NG 11/06/17 0924 Objective Vital Signs Past 12 Hours Date Time Temp Pulse Resp B/P (MAP) Pulse Ox O2 Delivery O2 Flow Rate FiO2 11/06/17 12:15 Nasal Cannula 3.0 11/06/17 11:26 36.8 64 20 131/67 (88) 92 Room Air 3.5 11/06/17 08:00 Nasal Cannula 3.0 11/06/17 08:00 36.5 84 20 113/62 (79) 96 Nasal Cannula 2.0 11/06/17 05:38 64 20 97 Nasal Cannula 4.0 11/06/17 05:02 89 24 134/63 (104) 96 11/06/17 05:02 89 24 134/63 (86) 96 Nasal Cannula 4.0 11/06/17 05:00 71 14 92 11/06/17 04:01 62 15 103/49 (67) 94 Nasal Cannula 4.0 11/06/17 04:01 62 15 103/49 (74) 94 11/06/17 04:00 Nasal Cannula 2.0 11/06/17 04:00 60 15 11/06/17 03:01 60 17 123/60 (81) 93 Nasal Cannula 4.0 11/06/17 03:01 60 17 123/60 (81) 93 11/06/17 03:00 65 13 11/06/17 02:09 60 16 95/49 (62) 94 11/06/17 02:09 60 16 95/49 (64) 94 Nasal Cannula 4.0 11/06/17 02:00 59 12 95/49 (62) 94 11/06/17 02:00 59 12 95/49 (64) 94 Nasal Cannula 4.0 Last Recorded Weight-Kilograms: 94.500 Physical Exam Constitutional: Level of Distress: NAD Lungs: Respiratory effort: no dyspnea, good air movement Auscultation: no rales/crackles, expiratory wheezing Cardiovascular: Heart Auscultation: no rubs, no gallops, II/ WSM, irregular rate rhythm Peripheral Pulses: Bruits: none appreciated Extremities: no edema Data Laboratory Results: Last 24 Hours Test 11/05/17 17:37 11/05/17 23:42 11/06/17 05:20 11/06/17 05:52 Bedside Glucose 147 mg/dl 147 mg/dl 131 mg/dl White Blood Count 8.11 K/uL Red Blood Count 4.27 M/uL Hemoglobin 13.6 g/dL Hematocrit 41.5 % Mean Corpuscular Volume 97.2 fL Mean Corpuscular Hemoglobin 31.9 pg Mean Corpuscular Hemoglobin Concent 32.8 g/dl Platelet Count 239 K/uL Mean Platelet Volume 9.1 fL Neutrophils (%) (Auto) 79.4 % Lymphocytes (%) (Auto) 11.1 % Monocytes (%) (Auto) 8.9 % Eosinophils (%) (Auto) 0.0 % Basophils (%) (Auto) 0.1 % Neutrophils # (Auto) 6.44 K/uL Lymphocytes # (Auto) 0.90 K/uL Monocytes # (Auto) 0.72 K/uL Eosinophils # (Auto) 0.00 K/uL Basophils # (Auto) 0.01 K/uL RDW Standard Deviation 55.0 fL RDW Coefficient of Variation 15.5 % Immature Granulocyte % (Auto) 0.5 % Immature Granulocyte # (Auto) 0.04 K/uL Sodium Level 135 mmol/L Potassium Level 4.8 mmol/L Chloride Level 101 mmol/L Carbon Dioxide Level 29 mmol/L Anion Gap 5.0 mmol/L Blood Urea Nitrogen 25 mg/dl Creatinine 0.95 mg/dl Est Creatinine Clear Calc Drug Dose 50.3 ml/min Estimated GFR () 63.3 Estimated GFR (Non- 54.6 BUN/Creatinine Ratio 26.6 Random Glucose 139 mg/dl Calcium Level 8.8 mg/dl Phosphorus Level 3.7 mg/dl Magnesium Level 2.2 mg/dl Test 11/06/17 11:11 Bedside Glucose 136 mg/dl Imaging: Her echocardiogram shows a normal sized left ventricle with a normal left ventricular ejection fraction of 55-60%. Valvular function is overall normal. Telemetry reviewed: Atrial fibrillation with occasional ventricular pacing Assessment and Plan 1. Atrial fibrillation: She evidently went into atrial fibrillation on September 14, 2017, I do not have the exact dates but she was probably ill at that time and that may have led to the atrial arrhythmia. She has not been anticoagulated. My recommendation would be to strongly consider anticoagulation , and then consider cardioversion in the future. I would recommend Eliquis, her dose would be 5 mg twice daily. Even if we do not continue anticoagulation over the long run she would be better off in sinus rhythm and in the past she did not have a history of atrial fibrillation. Rate control at the moment appears adequate under the circumstances. 2. Pacemaker: Her pacemaker is working well, she is not using it much during atrial fibrillation, before that she was atrially pacing for the most part rather than ventricular pacing. Thank you for allowing me to participate in her care.
--- NOTE | 2017-11-06 16:15 | Progress Note ---
Medicine Progress Note Date & Time of Visit: Nov 06, 2017 at 16:07. Subjective Pt was seen and examined Lying in bed with no distress Pt looks more awake today She was able to have a normal conversation She said that her breathing slightly improves Continue to cough Denies any chest pain, palpitation, dizziness Objective Last 8 Hrs Date Time Temp Pulse Resp B/P (MAP) Pulse Ox O2 Delivery O2 Flow Rate FiO2 11/06/17 15:57 73 20 96 Nasal Cannula 4.0 11/06/17 15:39 37.1 84 22 132/75 (94) 97 Nasal Cannula 3.0 11/06/17 15:04 82 97 11/06/17 12:15 Nasal Cannula 3.0 11/06/17 11:26 36.8 64 20 131/67 (88) 92 Room Air 3.5 Physical Exam: General- No acute distress Head- atraumatic Eyes- PERRL, EOMI ENT- oropharynx clear Neck- supple, no JVD Lungs- +wheezing Heart- irregular rhythm, +murmur Abdomen- normal bowel sounds, soft Extremities- No calf tenderness Neuro- Follow commands, speech fluent, no focal neuro deficit Skin- warm & dry Laboratory Results: Last 24 Hours Test 11/05/17 17:37 11/05/17 23:42 11/06/17 05:20 11/06/17 05:52 Bedside Glucose 147 mg/dl 147 mg/dl 131 mg/dl White Blood Count 8.11 K/uL Red Blood Count 4.27 M/uL Hemoglobin 13.6 g/dL Hematocrit 41.5 % Mean Corpuscular Volume 97.2 fL Mean Corpuscular Hemoglobin 31.9 pg Mean Corpuscular Hemoglobin Concent 32.8 g/dl Platelet Count 239 K/uL Mean Platelet Volume 9.1 fL Neutrophils (%) (Auto) 79.4 % Lymphocytes (%) (Auto) 11.1 % Monocytes (%) (Auto) 8.9 % Eosinophils (%) (Auto) 0.0 % Basophils (%) (Auto) 0.1 % Neutrophils # (Auto) 6.44 K/uL Lymphocytes # (Auto) 0.90 K/uL Monocytes # (Auto) 0.72 K/uL Eosinophils # (Auto) 0.00 K/uL Basophils # (Auto) 0.01 K/uL RDW Standard Deviation 55.0 fL RDW Coefficient of Variation 15.5 % Immature Granulocyte % (Auto) 0.5 % Immature Granulocyte # (Auto) 0.04 K/uL Sodium Level 135 mmol/L Potassium Level 4.8 mmol/L Chloride Level 101 mmol/L Carbon Dioxide Level 29 mmol/L Anion Gap 5.0 mmol/L Blood Urea Nitrogen 25 mg/dl Creatinine 0.95 mg/dl Est Creatinine Clear Calc Drug Dose 50.3 ml/min Estimated GFR () 63.3 Estimated GFR (Non- 54.6 BUN/Creatinine Ratio 26.6 Random Glucose 139 mg/dl Calcium Level 8.8 mg/dl Phosphorus Level 3.7 mg/dl Magnesium Level 2.2 mg/dl Test 11/06/17 11:11 Bedside Glucose 136 mg/dl Assessment & Plan Acute Respiratory failure with hypercapnia: Secondary to Asthma Exacerbation VBG on admission showed PCO2 70 and Ph 7.2 Was intubated on admission Repeat CXR showed extensive left basilar consolidation with moderate left pleural effusion. S/P extubation today Continue oxygen supplement case discussed with Enrichment Director Since pt is very lethargy Plan to get a VBG and consider bipap trial Blood cx pending No leukocytosis and afebrile with normal procalcitonin Continue solumedrol and neb treatment Continue monitor in the ICU 11/06 Clinically improved CXR showed stable to increased left basilar consolidation, likely slight increase in passive atelectasis in the setting of the moderate left pleural effusion. Continue neb treatment and prednisone Blood cx no growth Continue oxygen supplement D/C IVF Continue lasix Will consult pulmonology Chronic CHF: No signs of acute exacerbation CXR showed moderate left pleural effusion. BNP on admission normal Continue lasix 20mg daily Cardiology on board ECHO showed * The left ventricle is grossly normal size. * Left ventricular systolic function is normal. * Ejection Fraction = 55-60%. * The right ventricular systolic function is normal. * Grossly normal valvular structure and function. Atrial fibrillation RVR Currently rate controlled Continue Digoxin, Diltiazem Digoxin wnl Cardiology recommended to consider to start on anticoagulant once stable, then consider cardioversion. High risk for fall Hyperglycemia Due to steroid Recent A1C 6.2 Continue monitor H/O CVA: Continue ASA, statins stable HTN: BP stable Continue BP med Carotid artery disease: Continue Statin and aspirin Hypothyroidism: TSH wnl Continue Levothyroxine Dementia: Stable Not on any meds at home DVT Px: Heparin SQ Code Status Full No cardioversion Disposition Continue monitor in tele Current Inpatient Medications: Current Inpatient Medications Medications (Trade) Dose Ordered Sig/Mak Route Start Time Stop Time Status Last Admin Dose Admin Heparin Sodium (Porcine) (Heparin Sq 5000 Unit/0.5ml) 5,000 unit Q8H SQ 11/05/17 06:00 12/05/17 05:59 11/06/17 13:52 5,000 UNIT Acetaminophen (Tylenol Tab) 650 mg Q4H PRN PO 11/05/17 01:00 12/05/17 00:59 Ondansetron HCl (Zofran Inj) 4 mg Q6H PRN IV 11/05/17 01:00 12/05/17 00:59 Miscellaneous Information (Icu Protocol For Hyperglycemia) 1 ea PRN PRN N/A 11/05/17 01:00 11/07/17 00:59 Aspirin (Aspirin Chew) 81 mg QAM NG 11/05/17 09:00 12/05/17 08:59 11/06/17 09:23 81 MG Atorvastatin Calcium (Lipitor Tab) 40 mg DAILY NG 11/05/17 09:00 12/05/17 08:59 11/06/17 09:23 40 MG Digoxin (Lanoxin Tab) 0.125 mg DAILY@1600 NG 11/05/17 16:00 12/05/17 15:59 11/05/17 17:03 0.125 MG Diltiazem HCl (Cardizem Tab) 30 mg TID NG 11/05/17 09:00 12/05/17 08:59 11/06/17 13:49 30 MG Furosemide (Lasix Tab) 20 mg DAILY NG 11/05/17 09:00 12/05/17 08:59 11/06/17 09:24 20 MG Latanoprost (Xalatan Oph Soln) 1 drops HS OPB 11/05/17 21:00 12/05/17 20:59 11/05/17 21:01 1 DROPS Levothyroxine Sodium (Synthroid Tab) 88 mcg DAILYBB NG 11/05/17 06:00 12/05/17 05:59 11/06/17 06:50 88 MCG Magnesium Hydroxide (Milk Of Magnesia Susp) 30 ml DAILY PRN PO 11/05/17 01:30 12/05/17 01:29 Docusate Sodium (coLACE CAP) 100 mg BID PRN PO 11/05/17 02:00 12/05/17 01:59 Insulin Aspart (novoLOG ASPART) SLIDING SCALE If C... Q6 SC 11/05/17 06:00 12/05/17 05:59 11/06/17 12:00 4 UNITS Glucose (Glucose 40% Gel) 15-30 GRAMS 15 GRAMS... UD PRN PO 11/05/17 01:45 12/05/17 01:44 Glucose (Glucose Chew Tab) 4-8 Tablets 4 Tabl... UD PRN PO 11/05/17 01:45 12/05/17 01:44 Dextrose (Dextrose 50% 50ML Syringe) 25-50ML OF 50% DW IV FOR... UD PRN IV 11/05/17 01:45 12/05/17 01:44 Glucagon (Glucagon Inj) 1 mg UD PRN SQ 11/05/17 01:45 12/05/17 01:44 Lansoprazole (Prevacid Solutab) 30 mg DAILY NG 11/05/17 09:00 12/05/17 08:59 11/06/17 09:24 30 MG Midazolam HCl (Versed Inj) 2 mg Q2H PRN IV 11/05/17 02:15 12/05/17 02:14 11/05/17 03:27 2 MG Fentanyl Citrate (Fentanyl Inj) 50 mcg Q2H PRN IV 11/05/17 03:30 11/19/17 03:29 11/05/17 03:37 50 MCG Prednisone (PredniSONE TAB) 40 mg QAM PO 11/06/17 09:00 11/09/17 09:01 11/06/17 09:24 40 MG Levalbuterol (Xopenex 1.25MG/ 3ML Neb) 1.25 mg QIDR PRN INH 11/05/17 11:30 12/05/17 11:29 11/06/17 15:57 1.25 MG
[2017-11-06] MEDS: LATANOPROST 0.005% OP SOLN 2.5 ML BTL OPB SCH (20:33)
[2017-11-07] VITALS (8 sets, daily range): BP systolic 154–167; BP diastolic 65–96; PULSE 72–87; TEMP 36.5–36.9; O2SAT 91–94
[2017-11-07] MEDS ORDERED: NURSING VERBAL MED ORDER ONE ×2 (00:30→01:00)
[2017-11-07] MEDS: LEVALBUTEROL 1.25MG/3ML NEB INH PRN (00:58)
[2017-11-07] MEDS: LEVOTHYROXINE 88 MCG TAB NG SCH (06:13)
[2017-11-07] MEDS: HEPARIN SOD 5000 UNIT/0.5 ML CARP SQ SCH ×2 (06:14→13:34)
[2017-11-07 07:06] LABS: HEMATOCRIT 39.9 % (37-47); HEMOGLOBIN 13.2 g/dL (12.0-16.0); IG# 0.03 K/uL (0.00-0.02); LYMPH % 11.3 %; LYMPH ABS # 1.03 K/uL (1.2-3.4); MEAN CELL VOLUME 98.5 fL (80-100); MEAN CORPUSCULAR HEMOGLOBIN 32.6 pg (25-34); MEAN CORPUSCULAR HGB CONC 33.1 g/dl (32-36); MONO % 10.7 %; MONO ABS # 0.98 K/uL (0.11-0.59); NEUT % 77.7 %; NEUT ABS # 7.11 K/uL (1.4-6.5); PLATELET COUNT 246 K/uL (130-400); RED CELL DISTRIBUTION WIDTH CV 15.5 % (11.5-14.5); RED CELL DISTRIBUTION WIDTH SD 56.6 fL (36.4-46.3); WHITE BLOOD COUNT 9.15 K/uL (4.8-10.8)
[2017-11-07 07:39] LABS: CALCIUM 8.9 mg/dl (8.5-10.1); CREATININE 1.22 mg/dl (0.60-1.20); POTASSIUM 4.7 mmol/L (3.5-5.1)
[2017-11-07] MEDS: ATORVASTATIN 40 MG TAB NG SCH (08:45)
[2017-11-07] MEDS: ASPIRIN 81 MG CHEW NG SCH (08:46)
[2017-11-07] MEDS: LANSOPRAZOLE SOLUTAB 30 MG NG SCH (08:46)
[2017-11-07] MEDS: DILTIAZEM HCL 30 MG TAB NG SCH ×3 (08:46→20:26)
[2017-11-07] MEDS: FUROSEMIDE 20 MG TAB NG SCH (08:47)
[2017-11-07] MEDS: INSULIN ASPART 100 UNITS/ML 3 ML PEN SC SCH ×4 (08:50→20:30)
--- NOTE | 2017-11-07 09:12 | Pulmonary Consultation ---
History General Date of Service: Nov 07, 2017. Stated Complaint: Stridor and abnormal CXR HPI The patient is a 87 year old female who presents to [facility] with complaints of Change In Mental Status,Exacerbation Of Asthma. The patient's primary care provider is Bouchra Skinner M.D.. 87-year-old female admitted 11/04/2017 for shortness of breath and was treated with BiPAP as she was noted to have a CO2 of 70 with an A-a gradient of 329. The patient had been recently discharged from [facility] for CHF/ atrial fibrillation exacerbation and then transferred to [facility] for recovery with diagnoses of: Acute exacerbation of CHF, acute hypoxic respiratory failure with left lower lobe pneumonia, chronic atrial fibrillation , critical illness myopathy and dementia. Patient was initiated on Solu-Medrol at [facility], and Levaquin 250 mg increasing her Lasix dosing in even with these interventions became more short of breath requiring 3-4 liters nasal cannula oxygen support with documented wheezing. Along with this the patient was noted becoming more somnolent. Her somnolence progressed requiring intubation. Patient was extubated on 11/05/2017. Patient continues to have opacification the left hemidiaphragm. Today during our conversation she notes some dyspnea even at rest and continued expiratory wheezing but denies any productive cough, pleurisy or classic cardiac chest pain. PmHx: CHF, atrial fibrillation, CVA, hypertension, hypothyroidism and dementia. Echocardiogram 11/05/2017 LV: EF=55-60%, systolic function within normal limits RV: Systolic function within normal limits Left atrium: Within normal limits Valve: No significant pathology noted CXR 11/04/2017: No evidence of acute pulmonary disease Microbiology history Urine: E coli (11/25/2016) Blood: E coli (11/25/2016) Current medication list 1. Prednisone 40 mg q.d. 2. Xopenex nebulizer 3. Prevacid 30 mg daily 4. Heparin subcu 5000 units q.8 hours 5. Levothyroxine 88 micrograms daily 6. Fentanyl 50 micrograms q.2 hours p.r.n. pain 7. Versed 2 mg q.2 hours p.r.n. pain Allergies Retro his statin, Augmentin, penicillin PmHx: 1. First-degree AV block/sinus bradycardia 2. Left bundle branch block 3. Syncope--dual chamber pacemaker implantation June 09, 2010 4. Atrial fibrillation--aspirin, diltiazem (not anticoagulated secondary to fall risk) 5. CVA 6. Hypertension 7. Hypothyroidism 8. Dementia 9. Urosepsis with E coli 10. Asthma 11. Osteoporosis 12. Osteoarthritis 13. Chronic kidney disease PsHx: 1. Knee replacement 2. Cardiac pacer 3. Hip surgery Family history Myocardial infarction, congestive heart failure, diabetes Social history Denied--history drug abuse Marital history---currently /lives with her Alcohol---no history of use or abuse Tobacco---no history of use or abuse Occupation---retired Review of Systems Constitutional: reports: no symptoms Eyes: reports: no symptoms ENT: reports: as stated in HPI Cardiovascular: reports: as stated in HPI Respiratory: reports: as stated in HPI Gastrointestinal: reports: no symptoms Genitourinary - Female: reports: no symptoms Musculoskeletal: reports: no symptoms Integumentary: reports: no symptoms Neurologic: reports: no symptoms Psychiatric: reports: no symptoms Endocrine: no symptoms Hematologic / Lymphatic: no symptoms Allergic / Immunologic: no symptoms Past Medical History Past Medical History: Please refer to HPI Past Surgical History: Please refer to HPI Family History Cancer Diabetes mellitus Heart disease Please refer to HPI Social History Hx Tobacco Use In Past Year?: No Smoking Status: Never Smoker Marital status: Occupational Status: retired Immunizations History of Influenza Vaccine: No History of Tetanus Vaccine?: Unknown History of Pneumococcal: No History of Hepatitis B Vaccine: Unknown History of MDRO History of MDRO: No Allergies Coded Allergies: Adhesives (Verified Allergy, Unknown, RXN TO TAPE, 11/04/17) Penicillins (Verified Allergy, Unknown, RXN TO AMOXICILLIN, 11/04/17) Current Medications Reported Home Medications Medications Dose Route/Sig Max Daily Dose Days Date Category Dose Instructions Protonix (Pantoprazole Sodium) 40 Mg Tab 40 Mg PO DAILY 11/04/17 Reported Medrol (Methylprednisolone) 4 Mg Tab 16 Mg PO DIRECTED 11/04/17 Reported 16 mg on 11/06/17 at 1700, take 12mg on 11/07 1700 , takes 8mg on 11/08 at 1700, takes 24mg on 11/04 at 1700, takes 20mg on 11/05 at 1700, takes 4mg on 11/09 at 1700 Levofloxacin 250 Mg Tab 250 Mg PO DAILY 11/04/17 Reported to start at 0600 on 11/05/17 Ipratropium [place] 0.5 Mg/2.5 Ml Nebu 1 Vial NEB Q4 30 11/04/17 Reported Lasix (Furosemide) 20 Mg Tab 20 Mg PO DAILY 11/04/17 Reported Klor-Con (Potassium Chloride) 20 Meq Tabcr 20 Meq PO DAILY 11/04/17 Reported Tiazac (Diltiazem HCl) 120 Mg Capcr 120 Mg PO DAILY 11/04/17 Reported Levothyroxine Sodium 88 Mcg Tab 88 Mcg PO DAILY 90 11/04/17 Reported Digoxin 0.125 Mg Tab 0.125 Mg PO DAILY 11/04/17 Reported Tylenol (Acetaminophen) 500 Mg Tab 1 Tab PO Q4 PRN 3 11/04/17 Reported Milk Of Magnesia (Magnesium Hydroxide) 30 Ml Susp 30 Ml PO DAILY PRN 11/04/17 Reported Docusate Sodium 100 Mg Tab 100 Mg PO BID PRN 11/04/17 Reported Proventil 0.083% 2.5MG/3ML (Albuterol Sulf) 2.5 Mg/3 Ml Nebu 2.5 Mg INH QID PRN 11/25/16 Reported Oxybutynin Chloride Er (Oxybutynin Chloride) 5 Mg Tab 5 Mg PO DAILY 90 11/25/16 Reported Proair Respiclick (Albuterol Sulfate) 108 Mcg/Act Aer 2 Puffs INH QID PRN 11/25/16 Reported Aspirin Ec (Aspirin) 81 Mg Tab 81 Mg PO DAILY 03/22/15 Reported Latanoprost 37 Drops/2.5 Ml Soln 1 Drop OPB HS 03/22/15 Reported Lipitor (Atorvastatin Calcium) 40 Mg Tab 40 Mg PO DAILY 03/22/15 Reported Lisinopril 10 Mg Tab 10 Mg PO DAILY 03/22/15 Reported Metoprolol Succinate ER (Metoprolol Succinate) 50 Mg Tabcr 50 Mg PO DAILY 03/22/15 Reported Physical Physical Exam Vital Signs: Date Time Temp Pulse Resp B/P (MAP) Pulse Ox O2 Delivery O2 Flow Rate FiO2 11/07/17 07:25 36.9 74 20 167/80 (109) 91 11/07/17 04:00 Nasal Cannula 3.0 11/07/17 03:28 36.6 72 22 154/65 (94) 94 Nasal Cannula 3.0 11/07/17 00:59 78 20 93 Nasal Cannula 3.0 11/07/17 00:00 Nasal Cannula 3.0 11/06/17 23:23 36.9 83 18 138/84 (102) 97 Nasal Cannula 3.0 11/06/17 20:56 72 20 93 Nasal Cannula 3.0 11/06/17 20:00 96 Nasal Cannula 4.0 11/06/17 19:25 36.8 76 26 157/74 (101) 96 Nasal Cannula 3.0 11/06/17 16:00 96 Nasal Cannula 4.0 11/06/17 15:57 73 20 96 Nasal Cannula 4.0 11/06/17 15:39 37.1 84 22 132/75 (94) 97 Nasal Cannula 3.0 11/06/17 15:04 82 97 11/06/17 12:15 Nasal Cannula 3.0 11/06/17 11:26 36.8 64 20 131/67 (88) 92 Room Air 3.5 General Appearance: NO APPARENT DISTRESS Head: NORMOCEPHALIC, ATRAUMATIC Eyes: PERRLA, NO DISCHARGE, EOMI, SCLERAE NORMAL ENT: other (Mallampati 3) Neck: NORMAL RANGE OF MOTION, NO TENDERNESS, stridor, other Respiratory: rhonchi, wheezing, other (Ultrasonic evaluation shows mildly elevated left hemidiaphragm and small left-sided pleural effusion) Cardiovasular: irregular rate, abnormal rhythm Abdomen: NON TENDER, NORMAL BOWEL SOUNDS, NO REBOUND, NO MASSES, NO GUARDING Genitourinary - Female: EXTERNAL GENITALIA NORMAL Back: NORMAL INSPECTION, NO MIDLINE TENDERNESS, NO CVA TENDERNESS, NO PARAVERTEBRAL TTP Upper Extremities: NO EDEMA, NO DEFORMITY, NORMAL ROM Edema: Bilateral LE (1+) Pulses: carotid (R) (1+), carotid (L) (2+), dorsalis pedis (R) (1+), dorsalis pedis (L) (1+) Neuro: ALERT, other (Orientated to person and place) Reflexes: biceps (R) (2+), bicpes (L) (2+), patellar (R) (2+), patellar (L) (2+ ) Babinski Testing: right (downgoing), left (downgoing) Psychiatric: anxious Diagnostics Labs Results Past 24 Hours Test 11/06/17 11:11 11/06/17 16:28 11/06/17 20:12 11/07/17 06:41 Range/Units Bedside Glucose 136 139 142 70-90 mg/dl White Blood Count 9.15 4.8-10.8 K/uL Red Blood Count 4.05 4.2-5.4 M/uL Hemoglobin 13.2 12.0-16.0 g/dL Hematocrit 39.9 37-47 % Mean Corpuscular Volume 98.5 80-100 fL Mean Corpuscular Hemoglobin 32.6 25-34 pg Mean Corpuscular Hemoglobin Concent 33.1 32-36 g/dl Platelet Count 246 130-400 K/uL Mean Platelet Volume 9.0 7.4-10.4 fL Neutrophils (%) (Auto) 77.7 % Lymphocytes (%) (Auto) 11.3 % Monocytes (%) (Auto) 10.7 % Eosinophils (%) (Auto) 0.0 % Basophils (%) (Auto) 0.0 % Neutrophils # (Auto) 7.11 1.4-6.5 K/uL Lymphocytes # (Auto) 1.03 1.2-3.4 K/uL Monocytes # (Auto) 0.98 0.11-0.59 K/uL Eosinophils # (Auto) 0.00 0-0.5 K/uL Basophils # (Auto) 0.00 0-0.2 K/uL RDW Standard Deviation 56.6 36.4-46.3 fL RDW Coefficient of Variation 15.5 11.5-14.5 % Immature Granulocyte % (Auto) 0.3 % Immature Granulocyte # (Auto) 0.03 0.00-0.02 K/uL Sodium Level 137 136-145 mmol/L Potassium Level 4.7 3.5-5.1 mmol/L Chloride Level 103 98-107 mmol/L Carbon Dioxide Level 32 21-32 mmol/L Anion Gap 2.0 3-11 mmol/L Blood Urea Nitrogen 33 7-18 mg/dl Creatinine 1.22 0.60-1.20 mg/dl Est Creatinine Clear Calc Drug Dose 39.5 ml/min Estimated GFR () 46.8 Estimated GFR (Non- 40.4 BUN/Creatinine Ratio 26.8 10-20 Random Glucose 114 70-99 mg/dl Calcium Level 8.9 8.5-10.1 mg/dl Magnesium Level 2.4 1.8-2.4 mg/dl Test 11/07/17 07:08 Range/Units Bedside Glucose 123 70-90 mg/dl Diagnostic Radiology Please refer to HPI EKG Atrial fibrillation with rate of 90 and notable left bundle branch block Impression Assessment and Plan 87-year-old female admitted with altered mental status with hypercapnic and hypoxic respiratory insufficiency requiring intubation and left costophrenic bluntin. Abnormal CXR: Patient has notable left costophrenic blunting which on ultrasound does not appear to have a large portion of effusion. This time I would like to obtain a swallow evaluation and a noncontrast CT of the patient for further evaluation. Patient may require bronchoscopic evaluation. 2. Stridor: Patient has inspiratory expiratory stridor possibly secondary to recent extubation/intubation. No signs of respiratory insufficiency. 3. Asthma: Patient has a long history of asthma previously diagnosed in her 40s or 50s. This time agree with continuing the steroids for asthma and possibly even stridor but further workup on asthma will be required is at least 33-35 % of adult onset asthma secondary to other etiologies such as heart failure, chronic rhinitis or GERD.
--- NOTE | 2017-11-07 10:54 | Cardiology Follow-Up ---
Subjective Date of Service: Nov 07, 2017. Pt evaluation today including: conversation w/ patient, physical exam, lab review, review of studies, review of inpatient medication list History of Present Illness This is a 86-year-old woman who presented in the latter part of 2009 with neurologic symptoms as well as syncope and was observed to have first degree AV block and left bundle branch block. She had several episodes of syncope before this presentation and it seemed very likely that it was bradycardic induced. She therefore underwent dual-chamber pacemaker implantation on June 09, 2010 with a [employer] Adapta model ADDR L1. She has had no further syncope. She was last seen in the office January 22, 2017 and appeared to be doing well from the cardiovascular standpoint. Based on records from [facility] she was in a alf facility and was discharged home, her Lasix was discontinued at home and she presented to [facility] in congestive heart failure. She was diuresed, had hypotension and required a short ICU stay. She was then sent to [facility] for rehabilitation. On admission there on October 19, 2017 she was confused. There she developed shortness of breath and was sent to the [facility] emergency room for treatment of this. Here she had evidence of CO2 retention, she failed conservative treatment including BiPAP and therefore required intubation and admission and was transferred to ICU. She has now been extubated however. Her chest x-ray does not seem to so significant congestive heart failure although she does have pleural effusions. She is also been in atrial fibrillation, rate has been reasonably well- controlled and it appears that her atrial fibrillation has been present since September 14, 2017 based on pacemaker evaluation. From her records she is not anticoagulated due to a risk of falling. She is comfortable today, she is communicative but confused. She has no cardiovascular complaints and denies shortness of breath. Social History Smoking Status: Never Smoker History of Alcohol Use: No Review of Systems Respiratory: No shortness of breath Cardiac: No chest pain Medications Cardiovascular: Item Value Date Time Digoxin 0.125 mg 11/05/17 1600 (Lanoxin Tab) DAILY@1600/NG 11/05/17 1703 Aspirin 81 mg 11/05/17 0900 (Aspirin Chew) QAM/NG 11/07/17 0846 Atorvastatin 40 mg 11/05/17 0900 Calcium DAILY/NG 11/07/17 0845 (Lipitor Tab) Diltiazem HCl 30 mg 11/05/17 0900 (Cardizem Tab) TID/NG 11/07/17 0846 Furosemide 20 mg 11/05/17 0900 (Lasix Tab) DAILY/NG 11/07/17 0847 Objective Vital Signs Past 12 Hours Date Time Temp Pulse Resp B/P (MAP) Pulse Ox O2 Delivery O2 Flow Rate FiO2 11/07/17 07:25 36.9 74 20 167/80 (109) 91 11/07/17 04:00 Nasal Cannula 3.0 11/07/17 03:28 36.6 72 22 154/65 (94) 94 Nasal Cannula 3.0 11/07/17 00:59 78 20 93 Nasal Cannula 3.0 11/07/17 00:00 Nasal Cannula 3.0 11/06/17 23:23 36.9 83 18 138/84 (102) 97 Nasal Cannula 3.0 Last Recorded Weight-Kilograms: 96.600 Physical Exam Constitutional: Level of Distress: NAD Lungs: Respiratory effort: no dyspnea, good air movement Auscultation: no rales/crackles, expiratory wheezing (Probably upper airway) Cardiovascular: Heart Auscultation: no rubs, no gallops, II/ WSM, irregular rate rhythm Peripheral Pulses: Bruits: none appreciated Extremities: no edema Data Laboratory Results: Last 24 Hours Test 11/06/17 11:11 11/06/17 16:28 11/06/17 20:12 11/07/17 06:41 Bedside Glucose 136 mg/dl 139 mg/dl 142 mg/dl White Blood Count 9.15 K/uL Red Blood Count 4.05 M/uL Hemoglobin 13.2 g/dL Hematocrit 39.9 % Mean Corpuscular Volume 98.5 fL Mean Corpuscular Hemoglobin 32.6 pg Mean Corpuscular Hemoglobin Concent 33.1 g/dl Platelet Count 246 K/uL Mean Platelet Volume 9.0 fL Neutrophils (%) (Auto) 77.7 % Lymphocytes (%) (Auto) 11.3 % Monocytes (%) (Auto) 10.7 % Eosinophils (%) (Auto) 0.0 % Basophils (%) (Auto) 0.0 % Neutrophils # (Auto) 7.11 K/uL Lymphocytes # (Auto) 1.03 K/uL Monocytes # (Auto) 0.98 K/uL Eosinophils # (Auto) 0.00 K/uL Basophils # (Auto) 0.00 K/uL RDW Standard Deviation 56.6 fL RDW Coefficient of Variation 15.5 % Immature Granulocyte % (Auto) 0.3 % Immature Granulocyte # (Auto) 0.03 K/uL Sodium Level 137 mmol/L Potassium Level 4.7 mmol/L Chloride Level 103 mmol/L Carbon Dioxide Level 32 mmol/L Anion Gap 2.0 mmol/L Blood Urea Nitrogen 33 mg/dl Creatinine 1.22 mg/dl Est Creatinine Clear Calc Drug Dose 39.5 ml/min Estimated GFR () 46.8 Estimated GFR (Non- 40.4 BUN/Creatinine Ratio 26.8 Random Glucose 114 mg/dl Calcium Level 8.9 mg/dl Magnesium Level 2.4 mg/dl Test 11/07/17 07:08 Bedside Glucose 123 mg/dl Telemetry reviewed: Atrial fibrillation, occasional ventricular pacing Assessment and Plan 1. Atrial fibrillation: She evidently went into atrial fibrillation on September 14, 2017, I do not have the exact dates as she was not treated here at the time but she was probably ill at that time and that may have led to the atrial arrhythmia. She has not been anticoagulated. My recommendation would be to strongly consider anticoagulation, and then consider cardioversion in the future. I would recommend Eliquis, her dose would be 5 mg twice daily. Even if we do not continue anticoagulation over the long run she would be better off in sinus rhythm and in the past she did not have a history of atrial fibrillation. Rate control at the moment appears adequate under the circumstances. 2. Pacemaker: Her pacemaker is working well, she is not using it much during atrial fibrillation, before that she was atrially pacing for the most part rather than ventricular pacing. Thank you for allowing me to participate in her care.
--- NOTE | 2017-11-07 13:00 | DIAGNOSTIC IMAGING REPORT ---
(CHEST) THORAX WITHOUT CT DOSE: 967.40 mGy.cm CLINICAL HISTORY: 87 years-old Female with Left lower lobe opacification on CXR possible aspiration. Follow-up study in a patient with left lower lobe airspace disease TECHNIQUE: Multiaxial CT images of the chest were performed without contrast. A dose lowering technique was utilized adhering to the principles of ALARA. COMPARISON: Chest radiograph 11/06/2017, CTA chest 11/25/2016. FINDINGS: Multinodular goiter with left lower lobe projecting into the upper left mediastinum containing central calcifications and probable nodules compressing and slightly displacing the trachea to the right. Evaluation for adenopathy is limited without use of IV contrast. Scattered nonenlarged mediastinal and hilar lymph nodes are seen measuring up to 8 mm in short axis. Moderate multichamber cardiac enlargement without large pericardial effusion. Coronary arterial disease. Left subclavian pacer is noted with leads overlying the right heart. Extensive atherosclerosis of the thoracic aorta with fusiform aneurysmal dilation of the ascending thoracic aorta beginning distal to the sinotubular junction, 4.5 x 4.3 cm. The unopacified pulmonary arterial tree is unremarkable. Small left and trace right pleural effusions. Evaluation of the lung parenchyma is limited secondary to respiratory motion. Dependent bibasilar consolidative opacities are noted with areas of probable mucous plugging within the left lower lobe. Linear subsegmental right upper and right lower lobe opacities suggest areas of atelectasis/scarring. No pneumothorax. Calcifications are noted involving the trachea bronchial tree. Oral contrast within the stomach. No acute processes of the imaged upper abdomen. Soft tissues appear unremarkable. The bones appear moderately demineralized. Degenerative changes of the shoulders and spine. No suspicious lytic or blastic bony lesions identified. IMPRESSION: 1. Study is degraded by respiratory motion artifact, notably limiting evaluation of the lung parenchyma. 2. Small left and trace right pleural effusions with dependent subsegmental bibasilar consolidative opacities favoring atelectasis. Probable bronchial mucous plugging noted within the left lung base. 3. Cardiomegaly with fusiform aneurysmal dilation of the ascending thoracic aorta, 4.5 cm. Electronically signed by: Evert Tellez M.D. 11/07/2017 12:59 PM Dictated Date/Time: 11/07/2017 12:51 PM
--- NOTE | 2017-11-07 13:33 | DIAGNOSTIC IMAGING REPORT ---
VIDEO SWALLOW STUDY CLINICAL HISTORY: Aspiration. Asthma. COMPARISON STUDY: No priors. Fluoroscopy time: 1.2 minutes. FINDINGS: Fluoroscopic guidance was provided to the department of speech pathology in performing a video swallow study. The patient consumed barium-impregnated pudding, cracker with paste, thick liquid, nectar-thick liquid, and thin barium while the swallowing mechanism was observed in real-time. No penetration or aspiration was identified. IMPRESSION: No penetration or aspiration was identified. See dedicated speech pathology report for the findings and recommendations. Dictated: 11/07/2017 12:32 PM Transcribed: 11/07/2017 1:33 PM [facility] Electronically signed by: Nicolás Ochoa M.D. 11/07/2017 1:35 PM Dictated Date/Time: 11/07/2017 12:32 PM
--- NOTE | 2017-11-07 16:44 | Progress Note ---
Medicine Progress Note Date & Time of Visit: Nov 07, 2017 at 16:33. Subjective Pt was seen and examined Lying in bed and continue to wheeze Pt said that her breathing seems to improve slightly She said that she continues to cough Denies any chest pain, palpitation and dizziness Objective Last 8 Hrs Date Time Temp Pulse Resp B/P (MAP) Pulse Ox O2 Delivery O2 Flow Rate FiO2 11/07/17 15:10 36.6 73 20 155/85 (108) 92 Nasal Cannula 3.0 11/07/17 12:05 Room Air 11/07/17 11:18 36.9 87 20 163/78 (106) 92 Physical Exam: General- No acute distress Head- atraumatic Eyes- PERRL, EOMI ENT- oropharynx clear Neck- supple, no JVD Lungs- +wheezing Heart- irregular rhythm, +murmur Abdomen- normal bowel sounds, soft Extremities- No calf tenderness Neuro- Follow commands, speech fluent, no focal neuro deficit Skin- warm & dry Laboratory Results: Last 24 Hours Test 11/06/17 20:12 11/07/17 06:41 11/07/17 07:08 Bedside Glucose 142 mg/dl 123 mg/dl White Blood Count 9.15 K/uL Red Blood Count 4.05 M/uL Hemoglobin 13.2 g/dL Hematocrit 39.9 % Mean Corpuscular Volume 98.5 fL Mean Corpuscular Hemoglobin 32.6 pg Mean Corpuscular Hemoglobin Concent 33.1 g/dl Platelet Count 246 K/uL Mean Platelet Volume 9.0 fL Neutrophils (%) (Auto) 77.7 % Lymphocytes (%) (Auto) 11.3 % Monocytes (%) (Auto) 10.7 % Eosinophils (%) (Auto) 0.0 % Basophils (%) (Auto) 0.0 % Neutrophils # (Auto) 7.11 K/uL Lymphocytes # (Auto) 1.03 K/uL Monocytes # (Auto) 0.98 K/uL Eosinophils # (Auto) 0.00 K/uL Basophils # (Auto) 0.00 K/uL RDW Standard Deviation 56.6 fL RDW Coefficient of Variation 15.5 % Immature Granulocyte % (Auto) 0.3 % Immature Granulocyte # (Auto) 0.03 K/uL Sodium Level 137 mmol/L Potassium Level 4.7 mmol/L Chloride Level 103 mmol/L Carbon Dioxide Level 32 mmol/L Anion Gap 2.0 mmol/L Blood Urea Nitrogen 33 mg/dl Creatinine 1.22 mg/dl Est Creatinine Clear Calc Drug Dose 39.5 ml/min Estimated GFR () 46.8 Estimated GFR (Non- 40.4 BUN/Creatinine Ratio 26.8 Random Glucose 114 mg/dl Calcium Level 8.9 mg/dl Magnesium Level 2.4 mg/dl Assessment & Plan Acute Respiratory failure with hypercapnia: Secondary to Asthma Exacerbation VBG on admission showed PCO2 70 and Ph 7.2 Was intubated on admission Repeat CXR showed extensive left basilar consolidation with moderate left pleural effusion. S/P extubation today Continue oxygen supplement case discussed with Tube Coverer Since pt is very lethargy Plan to get a VBG and consider bipap trial Blood cx pending No leukocytosis and afebrile with normal procalcitonin Continue solumedrol and neb treatment Continue monitor in the ICU 11/06 Clinically improved CXR showed stable to increased left basilar consolidation, likely slight increase in passive atelectasis in the setting of the moderate left pleural effusion. Continue neb treatment and prednisone Blood cx no growth Continue oxygen supplement D/C IVF Continue lasix Will consult pulmonology 11/07 Continue to wheeze, seems to be stridor due to recent intubation and extubation CT chest showed small left and trace right pleural effusions with dependent subsegmental bibasilar consolidative opacities favoring atelectasis. Probable bronchial mucous plugging noted within the left lung base. Continue prednisone Speech consulted Video swallow suggest no aspiration Continue neb treatment and oxygen supplement Chronic diastolic CHF: No signs of acute exacerbation CXR showed moderate left pleural effusion. BNP on admission normal Continue lasix 20mg daily Cardiology on board ECHO showed * The left ventricle is grossly normal size. * Left ventricular systolic function is normal. * Ejection Fraction = 55-60%. * The right ventricular systolic function is normal. * Grossly normal valvular structure and function. Atrial fibrillation RVR Currently rate controlled Continue Digoxin, Diltiazem Digoxin wnl Cardiology recommended to consider to start on anticoagulant once stable, then consider cardioversion. High risk for fall Will start on Eliquis 5 mg BID as per cardio Plan to cardiovert in the future if pt remains on Afib Ascending Thoracic Aneurysm CT chest showed cardiomegaly with fusiform aneurysmal dilation of the ascending thoracic aorta, 4.5 cm. Will need to monitor as an outpatient Hyponatremia Possible related to poor intake vs diuretic Na on admission was 128 Na improved to 137 Resolved CKD 3 Creatine on admission stable Creatine today increase to 1.2 Will check BMP in am If creatine elevates in am, will hold Lasix Hyperglycemia Due to steroid Recent A1C 6.2 Continue monitor H/O CVA: Continue ASA, statins stable HTN: BP elevated Continue BP med Will monitor BP closely Carotid artery disease: Continue Statin and aspirin Hypothyroidism: TSH wnl Continue Levothyroxine Dementia: Stable Not on any meds at home DVT Px: Heparin SQ Code Status Full No cardioversion Disposition Continue monitor in tele Current Inpatient Medications: Current Inpatient Medications Medications (Trade) Dose Ordered Sig/Mak Route Start Time Stop Time Status Last Admin Dose Admin Heparin Sodium (Porcine) (Heparin Sq 5000 Unit/0.5ml) 5,000 unit Q8H SQ 11/05/17 06:00 12/05/17 05:59 11/07/17 13:34 5,000 UNIT Acetaminophen (Tylenol Tab) 650 mg Q4H PRN PO 11/05/17 01:00 12/05/17 00:59 Ondansetron HCl (Zofran Inj) 4 mg Q6H PRN IV 11/05/17 01:00 12/05/17 00:59 Aspirin (Aspirin Chew) 81 mg QAM NG 11/05/17 09:00 12/05/17 08:59 11/07/17 08:46 81 MG Atorvastatin Calcium (Lipitor Tab) 40 mg DAILY NG 11/05/17 09:00 12/05/17 08:59 11/07/17 08:45 40 MG Digoxin (Lanoxin Tab) 0.125 mg DAILY@1600 NG 11/05/17 16:00 12/05/17 15:59 11/05/17 17:03 0.125 MG Diltiazem HCl (Cardizem Tab) 30 mg TID NG 11/05/17 09:00 12/05/17 08:59 11/07/17 13:35 30 MG Furosemide (Lasix Tab) 20 mg DAILY NG 11/05/17 09:00 12/05/17 08:59 11/07/17 08:47 20 MG Latanoprost (Xalatan Oph Soln) 1 drops HS OPB 11/05/17 21:00 12/05/17 20:59 11/06/17 20:33 1 DROPS Levothyroxine Sodium (Synthroid Tab) 88 mcg DAILYBB NG 11/05/17 06:00 12/05/17 05:59 11/07/17 06:13 88 MCG Magnesium Hydroxide (Milk Of Magnesia Susp) 30 ml DAILY PRN PO 11/05/17 01:30 12/05/17 01:29 Docusate Sodium (coLACE CAP) 100 mg BID PRN PO 11/05/17 02:00 12/05/17 01:59 Glucose (Glucose 40% Gel) 15-30 GRAMS 15 GRAMS... UD PRN PO 11/05/17 01:45 12/05/17 01:44 Glucose (Glucose Chew Tab) 4-8 Tablets 4 Tabl... UD PRN PO 11/05/17 01:45 12/05/17 01:44 Dextrose (Dextrose 50% 50ML Syringe) 25-50ML OF 50% DW IV FOR... UD PRN IV 11/05/17 01:45 12/05/17 01:44 Glucagon (Glucagon Inj) 1 mg UD PRN SQ 11/05/17 01:45 12/05/17 01:44 Lansoprazole (Prevacid Solutab) 30 mg DAILY NG 11/05/17 09:00 12/05/17 08:59 11/07/17 08:46 30 MG Midazolam HCl (Versed Inj) 2 mg Q2H PRN IV 11/05/17 02:15 12/05/17 02:14 11/05/17 03:27 2 MG Fentanyl Citrate (Fentanyl Inj) 50 mcg Q2H PRN IV 11/05/17 03:30 11/19/17 03:29 11/05/17 03:37 50 MCG Prednisone (PredniSONE TAB) 40 mg QAM PO 11/06/17 09:00 11/09/17 09:01 11/07/17 08:45 40 MG Levalbuterol (Xopenex 1.25MG/ 3ML Neb) 1.25 mg QIDR PRN INH 11/05/17 11:30 12/05/17 11:29 11/07/17 00:58 1.25 MG Insulin Aspart (novoLOG ASPART) SLIDING SCALE If C... ACHS SC 11/07/17 07:00 12/07/17 06:59 11/07/17 08:50 4 UNITS
[2017-11-07] MEDS: DIGOXIN 0.125 MG TAB NG SCH (17:08)
[2017-11-07] MEDS: APIXABAN 2.5 MG TAB PO SCH (20:27)
[2017-11-07] MEDS: LATANOPROST 0.005% OP SOLN 2.5 ML BTL OPB SCH (21:23)
[2017-11-08] VITALS (15 sets, daily range): BP systolic 154–178; BP diastolic 70–93; PULSE 63–86; TEMP 36.3–36.7; O2SAT 93–98
[2017-11-08] MEDS: LEVALBUTEROL 1.25MG/3ML NEB INH PRN ×3 (02:10→20:25)
[2017-11-08] MEDS: LEVOTHYROXINE 88 MCG TAB NG SCH (05:39)
[2017-11-08 06:52] LABS: BASO % 0.1 %; BASO ABS # 0.01 K/uL (0-0.2); HEMATOCRIT 40.3 % (37-47); IG# 0.04 K/uL (0.00-0.02); LYMPH % 18.2 %; LYMPH ABS # 1.44 K/uL (1.2-3.4); MEAN CELL VOLUME 98.1 fL (80-100); MEAN CORPUSCULAR HEMOGLOBIN 31.6 pg (25-34); MEAN CORPUSCULAR HGB CONC 32.3 g/dl (32-36); MONO % 13.8 %; MONO ABS # 1.09 K/uL (0.11-0.59); NEUT % 67.4 %; NEUT ABS # 5.33 K/uL (1.4-6.5); PLATELET COUNT 252 K/uL (130-400); RED CELL DISTRIBUTION WIDTH CV 15.5 % (11.5-14.5); RED CELL DISTRIBUTION WIDTH SD 55.9 fL (36.4-46.3); WHITE BLOOD COUNT 7.91 K/uL (4.8-10.8)
[2017-11-08 07:27] LABS: CALCIUM 9.2 mg/dl (8.5-10.1); CREATININE 1.13 mg/dl (0.60-1.20)
[2017-11-08] MEDS: DILTIAZEM HCL 30 MG TAB NG SCH ×3 (07:34→19:44)
[2017-11-08] MEDS: APIXABAN 2.5 MG TAB PO SCH ×2 (07:35→19:47)
[2017-11-08] MEDS: ATORVASTATIN 40 MG TAB NG SCH (07:35)
[2017-11-08] MEDS: LANSOPRAZOLE SOLUTAB 30 MG NG SCH (07:36)
[2017-11-08] MEDS: FUROSEMIDE 20 MG TAB NG SCH (07:36)
[2017-11-08] MEDS: INSULIN ASPART 100 UNITS/ML 3 ML PEN SC SCH ×4 (08:04→21:00)
[2017-11-08 08:29] LABS: POTASSIUM 4.3 mmol/L (3.5-5.1)
[2017-11-08] MEDS: ASPIRIN 81 MG CHEW NG SCH (09:18)
[2017-11-08] MEDS: DIGOXIN 0.125 MG TAB NG SCH (15:22)
--- NOTE | 2017-11-08 17:44 | Progress Note ---
Medicine Progress Note Date & Time of Visit: Nov 08, 2017 at 11:19. Subjective Pt was seen and examined Lying in bed with no distress I stopped by later to check on her again she was sitting comfortable in chair Pt said that she feels a little better She said that her breathing improves Denies any chest pain, palpitation, dizziness Objective Last 8 Hrs Date Time Temp Pulse Resp B/P (MAP) Pulse Ox O2 Delivery O2 Flow Rate FiO2 11/08/17 15:22 86 11/08/17 15:21 36.6 86 18 154/80 (104) 93 Nasal Cannula 3.0 11/08/17 14:59 94 Nasal Cannula 3.0 11/08/17 11:56 36.5 79 22 159/91 (113) 98 11/08/17 11:43 93 Nasal Cannula 3.0 Physical Exam: General- No acute distress Head- atraumatic Eyes- PERRL, EOMI ENT- oropharynx clear Neck- supple, no JVD Lungs- +wheezing Heart- irregular rhythm, +murmur Abdomen- normal bowel sounds, soft Extremities- No calf tenderness Neuro- Follow commands, speech fluent, no focal neuro deficit Skin- warm & dry Laboratory Results: Last 24 Hours Test 11/07/17 20:30 11/08/17 06:11 11/08/17 07:14 11/08/17 07:35 Bedside Glucose 124 mg/dl 114 mg/dl White Blood Count 7.91 K/uL Red Blood Count 4.11 M/uL Hemoglobin 13.0 g/dL Hematocrit 40.3 % Mean Corpuscular Volume 98.1 fL Mean Corpuscular Hemoglobin 31.6 pg Mean Corpuscular Hemoglobin Concent 32.3 g/dl Platelet Count 252 K/uL Mean Platelet Volume 9.0 fL Neutrophils (%) (Auto) 67.4 % Lymphocytes (%) (Auto) 18.2 % Monocytes (%) (Auto) 13.8 % Eosinophils (%) (Auto) 0.0 % Basophils (%) (Auto) 0.1 % Neutrophils # (Auto) 5.33 K/uL Lymphocytes # (Auto) 1.44 K/uL Monocytes # (Auto) 1.09 K/uL Eosinophils # (Auto) 0.00 K/uL Basophils # (Auto) 0.01 K/uL RDW Standard Deviation 55.9 fL RDW Coefficient of Variation 15.5 % Immature Granulocyte % (Auto) 0.5 % Immature Granulocyte # (Auto) 0.04 K/uL Sodium Level 136 mmol/L Potassium Level mmol/L 4.3 mmol/L Chloride Level 102 mmol/L Carbon Dioxide Level 32 mmol/L Anion Gap 2.0 mmol/L Blood Urea Nitrogen 32 mg/dl Creatinine 1.13 mg/dl Est Creatinine Clear Calc Drug Dose 42.1 ml/min Estimated GFR () 51.3 Estimated GFR (Non- 44.3 BUN/Creatinine Ratio 28.2 Random Glucose 142 mg/dl Calcium Level 9.2 mg/dl Magnesium Level mg/dl 2.3 mg/dl Assessment & Plan Acute Respiratory failure with hypercapnia: Secondary to Asthma Exacerbation VBG on admission showed PCO2 70 and Ph 7.2 Was intubated on admission Repeat CXR showed extensive left basilar consolidation with moderate left pleural effusion. S/P extubation today Continue oxygen supplement case discussed with Journey Lineman Since pt is very lethargy Plan to get a VBG and consider bipap trial Blood cx pending No leukocytosis and afebrile with normal procalcitonin Continue solumedrol and neb treatment Continue monitor in the ICU 11/06 Clinically improved CXR showed stable to increased left basilar consolidation, likely slight increase in passive atelectasis in the setting of the moderate left pleural effusion. Continue neb treatment and prednisone Blood cx no growth Continue oxygen supplement D/C IVF Continue lasix Will consult pulmonology 11/08 Continue to wheeze, seems to be stridor due to recent intubation and extubation CT chest showed small left and trace right pleural effusions with dependent subsegmental bibasilar consolidative opacities favoring atelectasis. Probable bronchial mucous plugging noted within the left lung base. Continue prednisone Speech on board and Video swallow suggest no aspiration Continue neb treatment and oxygen supplement Pulmonary on board Chronic diastolic CHF: No signs of acute exacerbation CXR showed moderate left pleural effusion. BNP on admission normal Continue lasix 20mg daily Cardiology on board ECHO showed * The left ventricle is grossly normal size. * Left ventricular systolic function is normal. * Ejection Fraction = 55-60%. * The right ventricular systolic function is normal. * Grossly normal valvular structure and function. Atrial fibrillation RVR Currently rate controlled Continue Digoxin, Diltiazem Digoxin wnl Cardiology recommended to consider to start on anticoagulant once stable, then consider cardioversion. High risk for fall Continue Eliquis 5 mg BID as per cardio Plan to cardiovert in the future if pt remains on Afib Ascending Thoracic Aneurysm CT chest showed cardiomegaly with fusiform aneurysmal dilation of the ascending thoracic aorta, 4.5 cm. Will need to monitor as an outpatient Hyponatremia Possible related to poor intake vs diuretic Na on admission was 128 Na improved to 137 Resolved CKD stage 3 Creatine on admission stable Creatine 1.1 Stable Hyperglycemia Due to steroid Recent A1C 6.2 Continue monitor H/O CVA: Continue ASA, statins stable HTN: BP elevated Continue BP med Continue monitor BP closely Carotid artery disease: Continue Statin and aspirin Hypothyroidism: TSH wnl Continue Levothyroxine Dementia: Stable Not on any meds at home DVT Px: Heparin SQ Code Status Full No cardioversion Disposition Continue monitor in tele Current Inpatient Medications: Current Inpatient Medications Medications (Trade) Dose Ordered Sig/Mak Route Start Time Stop Time Status Last Admin Dose Admin Acetaminophen (Tylenol Tab) 650 mg Q4H PRN PO 11/05/17 01:00 12/05/17 00:59 Ondansetron HCl (Zofran Inj) 4 mg Q6H PRN IV 11/05/17 01:00 12/05/17 00:59 Aspirin (Aspirin Chew) 81 mg QAM NG 11/05/17 09:00 12/05/17 08:59 11/08/17 09:18 81 MG Atorvastatin Calcium (Lipitor Tab) 40 mg DAILY NG 11/05/17 09:00 12/05/17 08:59 11/08/17 07:35 40 MG Digoxin (Lanoxin Tab) 0.125 mg DAILY@1600 NG 11/05/17 16:00 12/05/17 15:59 11/08/17 15:22 0.125 MG Diltiazem HCl (Cardizem Tab) 30 mg TID NG 11/05/17 09:00 12/05/17 08:59 11/08/17 15:21 30 MG Furosemide (Lasix Tab) 20 mg DAILY NG 11/05/17 09:00 12/05/17 08:59 11/08/17 07:36 20 MG Latanoprost (Xalatan Oph Soln) 1 drops HS OPB 11/05/17 21:00 12/05/17 20:59 11/07/17 21:23 1 DROPS Levothyroxine Sodium (Synthroid Tab) 88 mcg DAILYBB NG 11/05/17 06:00 12/05/17 05:59 11/08/17 05:39 88 MCG Magnesium Hydroxide (Milk Of Magnesia Susp) 30 ml DAILY PRN PO 11/05/17 01:30 12/05/17 01:29 Docusate Sodium (coLACE CAP) 100 mg BID PRN PO 11/05/17 02:00 12/05/17 01:59 Glucose (Glucose 40% Gel) 15-30 GRAMS 15 GRAMS... UD PRN PO 11/05/17 01:45 12/05/17 01:44 Glucose (Glucose Chew Tab) 4-8 Tablets 4 Tabl... UD PRN PO 11/05/17 01:45 12/05/17 01:44 Dextrose (Dextrose 50% 50ML Syringe) 25-50ML OF 50% DW IV FOR... UD PRN IV 11/05/17 01:45 12/05/17 01:44 Glucagon (Glucagon Inj) 1 mg UD PRN SQ 11/05/17 01:45 12/05/17 01:44 Lansoprazole (Prevacid Solutab) 30 mg DAILY NG 11/05/17 09:00 12/05/17 08:59 11/08/17 07:36 30 MG Midazolam HCl (Versed Inj) 2 mg Q2H PRN IV 11/05/17 02:15 12/05/17 02:14 11/05/17 03:27 2 MG Fentanyl Citrate (Fentanyl Inj) 50 mcg Q2H PRN IV 11/05/17 03:30 11/19/17 03:29 11/05/17 03:37 50 MCG Prednisone (PredniSONE TAB) 40 mg QAM PO 11/06/17 09:00 11/09/17 09:01 11/08/17 07:34 40 MG Levalbuterol (Xopenex 1.25MG/ 3ML Neb) 1.25 mg QIDR PRN INH 11/05/17 11:30 12/05/17 11:29 11/08/17 08:15 1.25 MG Insulin Aspart (novoLOG ASPART) SLIDING SCALE If C... ACHS SC 11/07/17 07:00 12/07/17 06:59 11/08/17 17:10 7 UNITS Apixaban (Eliquis Tab) 5 mg BID PO 11/07/17 21:00 12/07/17 20:59 11/08/17 07:35 5 MG
[2017-11-08] MEDS: LATANOPROST 0.005% OP SOLN 2.5 ML BTL OPB SCH (21:17)
[2017-11-09] VITALS (13 sets, daily range): BP systolic 138–170; BP diastolic 66–76; PULSE 72–91; TEMP 36.3–37; O2SAT 92–97
[2017-11-09] MEDS: LEVOTHYROXINE 88 MCG TAB NG SCH (05:21)
[2017-11-09] MEDS: APIXABAN 2.5 MG TAB PO SCH ×2 (07:27→20:34)
[2017-11-09] MEDS: LANSOPRAZOLE SOLUTAB 30 MG NG SCH (07:28)
[2017-11-09] MEDS: FUROSEMIDE 20 MG TAB NG SCH (07:29)
[2017-11-09] MEDS: ATORVASTATIN 40 MG TAB NG SCH (07:29)
[2017-11-09] MEDS: DILTIAZEM HCL 30 MG TAB NG SCH ×3 (07:30→20:35)
[2017-11-09] MEDS: ASPIRIN 81 MG CHEW NG SCH (07:33)
[2017-11-09 07:53] LABS: EOS % 0.3 %; EOS ABS # 0.02 K/uL (0-0.5); HEMATOCRIT 42.8 % (37-47); HEMOGLOBIN 13.8 g/dL (12.0-16.0); IG# 0.03 K/uL (0.00-0.02); LYMPH % 20.7 %; LYMPH ABS # 1.46 K/uL (1.2-3.4); MEAN CELL VOLUME 99.3 fL (80-100); MEAN CORPUSCULAR HGB CONC 32.2 g/dl (32-36); MEAN PLATELET VOLUME 9.5 fL (7.4-10.4); MONO % 10.6 %; MONO ABS # 0.75 K/uL (0.11-0.59); NEUT ABS # 4.81 K/uL (1.4-6.5); PLATELET COUNT 251 K/uL (130-400); RED CELL DISTRIBUTION WIDTH CV 14.9 % (11.5-14.5); RED CELL DISTRIBUTION WIDTH SD 54.9 fL (36.4-46.3); WHITE BLOOD COUNT 7.07 K/uL (4.8-10.8)
[2017-11-09 08:10] LABS: CALCIUM 9.1 mg/dl (8.5-10.1); CREATININE 0.95 mg/dl (0.60-1.20); POTASSIUM 4.1 mmol/L (3.5-5.1)
[2017-11-09] MEDS: INSULIN ASPART 100 UNITS/ML 3 ML PEN SC SCH ×4 (09:09→20:43)
--- NOTE | 2017-11-09 11:13 | Pulmonology Progress Note ---
Pulmonary Progress Note Date of Service Nov 09, 2017. Attending Dr. Medeiros Subjective Patient notes her respiratory status has greatly improved for the last 24 hours : She currently denies shortness of breath or productive sputum Objective Patient doing well sitting in bed notably decompensated but showing is no signs of respiratory insufficiency such as accessory muscle use or tachypnea during our conversation Past medical history: Recurrent E. coli UTIs, left bundle branch block, sinus bradycardia/dual-chamber pacemaker, atrial fibrillation, CVA, hypertension, dementia, hypothyroidism, asthma, chronic kidney disease Vital signs: Stable on 3 L nasal cannula with an SaO2 of 95% Respiratory: Decreased breath sounds at the bases left greater than right with some mild dullness to percussion Cardiac: S1-S2 irregular rhythm Abdomen: Soft nontender positive bowel sounds [employer] TE[employer]ER: Orientated 2, no focal weakness Workup Microbiology: Negative today Pro-calcitonin 11/05/2017: (0.11-WNL) Video swallow: No penetration or aspiration noted CT thorax 11/07/2017: Notable motion artifact, small left and trace right pleural effusion, subsegmental basilar consolidative opacification/atelectasis, bronchial plugging within the left base, cardiomegaly with 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 Apixaban 5 mg twice daily 2. Xopenex 4 times daily as needed wheezing 3. Aspirin 81 mg daily 4. Prevacid 80 mg daily Assessment & Plan 87-year-old female admitted for hypercapnic hypoxic respiratory failure: 1. Abnormal CT Thorax: Patient is noted to have small bilateral pleural effusions right greater than left with associated atelectasis in the left lower lobe. 2. Stridor: Patient continues to have wheezing bilaterally but appears to be coming from the upper airway consistent with postintubation upper airway edema/ possible stridor. No signs of respiratory insufficiency at this time but would continue steroids at least 20 mg a day for the next 4-5 days and then taper down to 10 mg for 3-4 day window then discontinue. If patient continues to have upper airway stridor ENT or bronchoscopic evaluation of the upper airway would be warranted. 3. Asthma: Patient has a long history of asthma previously diagnosed in her 40s or 50s. This time agree with continuing the steroids for asthma and possibly even stridor but further workup on asthma will be required is at least 33-35 % of adult onset asthma secondary to other etiologies such as heart failure, chronic rhinitis or GERD. 4. ID: Patient currently doing well off antibiotics with clinical history as well as current workup not consistent with infectious etiology. It is possible though the patient had an aspiration event as she was notably altered during her admission. We will also have to continue to monitor this as the patient was treated with antibiotics prior to her arrival at [facility] with could have artificially lowered her pro-calcitonin. This time I agree with holding off on antibiotics and monitoring but if the patient clinically deteriorates would reintroduce broad-spectrum HCAP therapy. Data Medications: Current Inpatient Medications Medications (Trade) Dose Ordered Sig/Mak Route Start Time Stop Time Status Last Admin Dose Admin Acetaminophen (Tylenol Tab) 650 mg Q4H PRN PO 11/05/17 01:00 12/05/17 00:59 Ondansetron HCl (Zofran Inj) 4 mg Q6H PRN IV 11/05/17 01:00 12/05/17 00:59 Aspirin (Aspirin Chew) 81 mg QAM NG 11/05/17 09:00 12/05/17 08:59 11/09/17 07:33 81 MG Atorvastatin Calcium (Lipitor Tab) 40 mg DAILY NG 11/05/17 09:00 12/05/17 08:59 11/09/17 07:29 40 MG Digoxin (Lanoxin Tab) 0.125 mg DAILY@1600 NG 11/05/17 16:00 12/05/17 15:59 11/08/17 15:22 0.125 MG Diltiazem HCl (Cardizem Tab) 30 mg TID NG 11/05/17 09:00 12/05/17 08:59 11/09/17 07:30 30 MG Furosemide (Lasix Tab) 20 mg DAILY NG 11/05/17 09:00 12/05/17 08:59 11/09/17 07:29 20 MG Latanoprost (Xalatan Oph Soln) 1 drops HS OPB 11/05/17 21:00 12/05/17 20:59 11/08/17 21:17 1 DROPS Levothyroxine Sodium (Synthroid Tab) 88 mcg DAILYBB NG 11/05/17 06:00 12/05/17 05:59 11/09/17 05:21 88 MCG Magnesium Hydroxide (Milk Of Magnesia Susp) 30 ml DAILY PRN PO 11/05/17 01:30 12/05/17 01:29 Docusate Sodium (coLACE CAP) 100 mg BID PRN PO 11/05/17 02:00 12/05/17 01:59 Glucose (Glucose 40% Gel) 15-30 GRAMS 15 GRAMS... UD PRN PO 11/05/17 01:45 12/05/17 01:44 Glucose (Glucose Chew Tab) 4-8 Tablets 4 Tabl... UD PRN PO 11/05/17 01:45 12/05/17 01:44 Dextrose (Dextrose 50% 50ML Syringe) 25-50ML OF 50% DW IV FOR... UD PRN IV 11/05/17 01:45 12/05/17 01:44 Glucagon (Glucagon Inj) 1 mg UD PRN SQ 11/05/17 01:45 12/05/17 01:44 Lansoprazole (Prevacid Solutab) 30 mg DAILY NG 11/05/17 09:00 12/05/17 08:59 11/09/17 07:28 30 MG Midazolam HCl (Versed Inj) 2 mg Q2H PRN IV 11/05/17 02:15 12/05/17 02:14 11/05/17 03:27 2 MG Fentanyl Citrate (Fentanyl Inj) 50 mcg Q2H PRN IV 11/05/17 03:30 11/19/17 03:29 11/05/17 03:37 50 MCG Levalbuterol (Xopenex 1.25MG/ 3ML Neb) 1.25 mg QIDR PRN INH 11/05/17 11:30 12/05/17 11:29 11/08/17 20:25 1.25 MG Insulin Aspart (novoLOG ASPART) SLIDING SCALE If C... ACHS SC 11/07/17 07:00 12/07/17 06:59 11/08/17 17:10 7 UNITS Apixaban (Eliquis Tab) 5 mg BID PO 11/07/17 21:00 12/07/17 20:59 11/09/17 07:27 5 MG Vital Signs: Date Time Temp Pulse Resp B/P (MAP) Pulse Ox O2 Delivery O2 Flow Rate FiO2 11/09/17 08:29 36.8 76 18 167/71 (103) 94 11/09/17 08:00 95 Nasal Cannula 3.0 11/09/17 05:25 36.3 72 20 138/66 (90) 95 Nasal Cannula 3.0 11/09/17 04:54 93 Nasal Cannula 3.0 11/09/17 00:21 93 Nasal Cannula 3.0 11/08/17 23:29 36.3 70 20 178/70 (106) 95 Nasal Cannula 3.0 11/08/17 20:25 84 22 95 Nasal Cannula 3.0 11/08/17 20:00 93 Nasal Cannula 3.0 11/08/17 19:26 36.6 76 16 157/83 (107) 94 Nasal Cannula 3.0 11/08/17 15:22 86 11/08/17 15:21 36.6 86 18 154/80 (104) 93 Nasal Cannula 3.0 11/08/17 14:59 94 Nasal Cannula 3.0 11/08/17 11:56 36.5 79 22 159/91 (113) 98 11/08/17 11:43 93 Nasal Cannula 3.0 Laboratory Results: Last 24 Hours Test 11/08/17 11:15 11/08/17 16:32 11/08/17 20:24 11/09/17 06:15 Bedside Glucose 136 mg/dl 194 mg/dl 117 mg/dl White Blood Count 7.07 K/uL Red Blood Count 4.31 M/uL Hemoglobin 13.8 g/dL Hematocrit 42.8 % Mean Corpuscular Volume 99.3 fL Mean Corpuscular Hemoglobin 32.0 pg Mean Corpuscular Hemoglobin Concent 32.2 g/dl Platelet Count 251 K/uL Mean Platelet Volume 9.5 fL Neutrophils (%) (Auto) 68.0 % Lymphocytes (%) (Auto) 20.7 % Monocytes (%) (Auto) 10.6 % Eosinophils (%) (Auto) 0.3 % Basophils (%) (Auto) 0.0 % Neutrophils # (Auto) 4.81 K/uL Lymphocytes # (Auto) 1.46 K/uL Monocytes # (Auto) 0.75 K/uL Eosinophils # (Auto) 0.02 K/uL Basophils # (Auto) 0.00 K/uL RDW Standard Deviation 54.9 fL RDW Coefficient of Variation 14.9 % Immature Granulocyte % (Auto) 0.4 % Immature Granulocyte # (Auto) 0.03 K/uL Sodium Level 138 mmol/L Potassium Level 4.1 mmol/L Chloride Level 100 mmol/L Carbon Dioxide Level 36 mmol/L Anion Gap 3.0 mmol/L Blood Urea Nitrogen 28 mg/dl Creatinine 0.95 mg/dl Est Creatinine Clear Calc Drug Dose 50.1 ml/min Estimated GFR () 63.3 Estimated GFR (Non- 54.6 BUN/Creatinine Ratio 29.2 Random Glucose 91 mg/dl Calcium Level 9.1 mg/dl Magnesium Level 2.3 mg/dl Test 11/09/17 06:38 11/09/17 07:38 Bedside Glucose 90 mg/dl 92 mg/dl
[2017-11-09] MEDS: LEVALBUTEROL 1.25MG/3ML NEB INH PRN ×2 (14:59→20:11)
[2017-11-09] MEDS: DIGOXIN 0.125 MG TAB NG SCH (15:13)
--- NOTE | 2017-11-09 19:13 | Progress Note ---
Medicine Progress Note Date & Time of Visit: Nov 09, 2017 at 19:10. Subjective Pt was seen and examined Lying in bed with no distress Pt said that her breathing seems to improve, but continue to wheeze She said that today she sat on the chair for about 8hrs Denies any chest pain, palpitation, dizziness Objective Last 8 Hrs Date Time Temp Pulse Resp B/P (MAP) Pulse Ox O2 Delivery O2 Flow Rate FiO2 11/09/17 15:50 95 Nasal Cannula 3.0 11/09/17 15:13 76 11/09/17 15:12 36.8 91 20 138/76 (96) 97 11/09/17 14:59 89 22 94 Nasal Cannula 3.0 11/09/17 12:00 94 Nasal Cannula 3.0 11/09/17 11:59 36.7 84 16 156/74 (101) 97 Physical Exam: General- No acute distress Head- atraumatic Eyes- PERRL, EOMI ENT- oropharynx clear Neck- supple, no JVD Lungs- +wheezing Heart- irregular rhythm, +murmur Abdomen- normal bowel sounds, soft Extremities- No calf tenderness Neuro- Follow commands, speech fluent, no focal neuro deficit Skin- warm & dry Laboratory Results: Last 24 Hours Test 11/08/17 20:24 11/09/17 06:15 11/09/17 06:38 11/09/17 07:38 Bedside Glucose 117 mg/dl 90 mg/dl 92 mg/dl White Blood Count 7.07 K/uL Red Blood Count 4.31 M/uL Hemoglobin 13.8 g/dL Hematocrit 42.8 % Mean Corpuscular Volume 99.3 fL Mean Corpuscular Hemoglobin 32.0 pg Mean Corpuscular Hemoglobin Concent 32.2 g/dl Platelet Count 251 K/uL Mean Platelet Volume 9.5 fL Neutrophils (%) (Auto) 68.0 % Lymphocytes (%) (Auto) 20.7 % Monocytes (%) (Auto) 10.6 % Eosinophils (%) (Auto) 0.3 % Basophils (%) (Auto) 0.0 % Neutrophils # (Auto) 4.81 K/uL Lymphocytes # (Auto) 1.46 K/uL Monocytes # (Auto) 0.75 K/uL Eosinophils # (Auto) 0.02 K/uL Basophils # (Auto) 0.00 K/uL RDW Standard Deviation 54.9 fL RDW Coefficient of Variation 14.9 % Immature Granulocyte % (Auto) 0.4 % Immature Granulocyte # (Auto) 0.03 K/uL Sodium Level 138 mmol/L Potassium Level 4.1 mmol/L Chloride Level 100 mmol/L Carbon Dioxide Level 36 mmol/L Anion Gap 3.0 mmol/L Blood Urea Nitrogen 28 mg/dl Creatinine 0.95 mg/dl Est Creatinine Clear Calc Drug Dose 50.1 ml/min Estimated GFR () 63.3 Estimated GFR (Non- 54.6 BUN/Creatinine Ratio 29.2 Random Glucose 91 mg/dl Calcium Level 9.1 mg/dl Magnesium Level 2.3 mg/dl Test 11/09/17 11:15 11/09/17 16:24 Bedside Glucose 201 mg/dl 150 mg/dl Assessment & Plan Acute Respiratory failure with hypercapnia: Secondary to Asthma Exacerbation VBG on admission showed PCO2 70 and Ph 7.2 Was intubated on admission Repeat CXR showed extensive left basilar consolidation with moderate left pleural effusion. S/P extubation today Continue oxygen supplement case discussed with [employer] Since pt is very lethargy Plan to get a VBG and consider bipap trial Blood cx pending No leukocytosis and afebrile with normal procalcitonin Continue solumedrol and neb treatment Continue monitor in the ICU 11/06 Clinically improved CXR showed stable to increased left basilar consolidation, likely slight increase in passive atelectasis in the setting of the moderate left pleural effusion. Continue neb treatment and prednisone Blood cx no growth Continue oxygen supplement D/C IVF Continue lasix Will consult pulmonology 11/09 Continue to wheeze, seems to be stridor due to recent intubation and extubation CT chest showed small left and trace right pleural effusions with dependent subsegmental bibasilar consolidative opacities favoring atelectasis. Probable bronchial mucous plugging noted within the left lung base. Continue prednisone taper Speech on board and Video swallow suggest no aspiration Continue neb treatment and oxygen supplement Pulmonary on board If wheezing does not improve, will consider ENT consult Chronic diastolic CHF: No signs of acute exacerbation CXR showed moderate left pleural effusion. BNP on admission normal Continue lasix 20mg daily Cardiology on board ECHO showed * The left ventricle is grossly normal size. * Left ventricular systolic function is normal. * Ejection Fraction = 55-60%. * The right ventricular systolic function is normal. * Grossly normal valvular structure and function. Atrial fibrillation RVR Currently rate controlled Continue Digoxin, Diltiazem Digoxin wnl Cardiology recommended to consider to start on anticoagulant once stable, then consider cardioversion. High risk for fall Continue Eliquis 5 mg BID as per cardio Plan to cardiovert in the future if pt remains on Afib Ascending Thoracic Aneurysm CT chest showed cardiomegaly with fusiform aneurysmal dilation of the ascending thoracic aorta, 4.5 cm. Will need to monitor as an outpatient Hyponatremia Possible related to poor intake vs diuretic Na on admission was 128 Na improved to 137 Resolved CKD stage 3 Creatine on admission stable Creatine 1.1 Stable Hyperglycemia Due to steroid Recent A1C 6.2 Continue monitor H/O CVA: Continue ASA, statins stable HTN: BP elevated Continue BP med Continue monitor BP closely Carotid artery disease: Continue Statin and aspirin Hypothyroidism: TSH wnl Continue Levothyroxine Dementia: Stable Not on any meds at home DVT Px: Heparin SQ Code Status Full No cardioversion Disposition Continue monitor in tele Current Inpatient Medications: Current Inpatient Medications Medications (Trade) Dose Ordered Sig/Mak Route Start Time Stop Time Status Last Admin Dose Admin Acetaminophen (Tylenol Tab) 650 mg Q4H PRN PO 11/05/17 01:00 12/05/17 00:59 Ondansetron HCl (Zofran Inj) 4 mg Q6H PRN IV 11/05/17 01:00 12/05/17 00:59 Aspirin (Aspirin Chew) 81 mg QAM NG 11/05/17 09:00 12/05/17 08:59 11/09/17 07:33 81 MG Atorvastatin Calcium (Lipitor Tab) 40 mg DAILY NG 11/05/17 09:00 12/05/17 08:59 11/09/17 07:29 40 MG Digoxin (Lanoxin Tab) 0.125 mg DAILY@1600 NG 11/05/17 16:00 12/05/17 15:59 11/09/17 15:13 0.125 MG Diltiazem HCl (Cardizem Tab) 30 mg TID NG 11/05/17 09:00 12/05/17 08:59 11/09/17 15:12 30 MG Furosemide (Lasix Tab) 20 mg DAILY NG 11/05/17 09:00 12/05/17 08:59 11/09/17 07:29 20 MG Latanoprost (Xalatan Oph Soln) 1 drops HS OPB 11/05/17 21:00 12/05/17 20:59 11/08/17 21:17 1 DROPS Levothyroxine Sodium (Synthroid Tab) 88 mcg DAILYBB NG 11/05/17 06:00 12/05/17 05:59 11/09/17 05:21 88 MCG Magnesium Hydroxide (Milk Of Magnesia Susp) 30 ml DAILY PRN PO 11/05/17 01:30 12/05/17 01:29 Docusate Sodium (coLACE CAP) 100 mg BID PRN PO 11/05/17 02:00 12/05/17 01:59 Glucose (Glucose 40% Gel) 15-30 GRAMS 15 GRAMS... UD PRN PO 11/05/17 01:45 12/05/17 01:44 Glucose (Glucose Chew Tab) 4-8 Tablets 4 Tabl... UD PRN PO 11/05/17 01:45 12/05/17 01:44 Dextrose (Dextrose 50% 50ML Syringe) 25-50ML OF 50% DW IV FOR... UD PRN IV 11/05/17 01:45 12/05/17 01:44 Glucagon (Glucagon Inj) 1 mg UD PRN SQ 11/05/17 01:45 12/05/17 01:44 Lansoprazole (Prevacid Solutab) 30 mg DAILY NG 11/05/17 09:00 12/05/17 08:59 11/09/17 07:28 30 MG Midazolam HCl (Versed Inj) 2 mg Q2H PRN IV 11/05/17 02:15 12/05/17 02:14 11/05/17 03:27 2 MG Fentanyl Citrate (Fentanyl Inj) 50 mcg Q2H PRN IV 11/05/17 03:30 11/19/17 03:29 11/05/17 03:37 50 MCG Levalbuterol (Xopenex 1.25MG/ 3ML Neb) 1.25 mg QIDR PRN INH 11/05/17 11:30 12/05/17 11:29 11/09/17 14:59 1.25 MG Insulin Aspart (novoLOG ASPART) SLIDING SCALE If C... ACHS SC 11/07/17 07:00 12/07/17 06:59 11/09/17 17:02 4 UNITS Apixaban (Eliquis Tab) 5 mg BID PO 11/07/17 21:00 12/07/17 20:59 11/09/17 07:27 5 MG Prednisone (PredniSONE TAB) 20 mg QAM PO 11/10/17 09:00 12/10/17 08:59
[2017-11-09] MEDS: LATANOPROST 0.005% OP SOLN 2.5 ML BTL OPB SCH (20:35)
--- NOTE | 2017-11-09 22:05 | Progress Note ---
Post ICU Progress Note Date & Time Nov 09, 2017 at 21:48 Vital Signs Vital Signs Past 12 Hours Date Time Temp Pulse Resp B/P (MAP) Pulse Ox O2 Delivery O2 Flow Rate FiO2 11/09/17 20:11 89 22 94 Nasal Cannula 3.0 11/09/17 19:26 37.0 81 18 167/74 (105) 92 Nasal Cannula 2.0 11/09/17 15:50 95 Nasal Cannula 3.0 11/09/17 15:13 76 11/09/17 15:12 36.8 91 20 138/76 (96) 97 11/09/17 14:59 89 22 94 Nasal Cannula 3.0 11/09/17 12:00 94 Nasal Cannula 3.0 11/09/17 11:59 36.7 84 16 156/74 (101) 97 Notes Mental Status: alert / awake, participated in evaluation Nausea / Vomiting: adequately controlled Pain: adequately controlled Airway Patency, RR, SpO2: stable & adequate (Patient continues with inspiratory /expiratory wheezing. 3 L nasal cannula with adequate saturations) BP & HR: stable & adequate Anju Huggins is an 86-year-old female who was admitted on November 05 for change of mental status and increasing shortness of breath. Patient was somnolent upon examination in the emergency department with a Stefani Coma Scale of less than 10 and thus required intubation. Patient's health has been declining over the past few months with multiple admissions most recently for atrial fibrillation and chronic heart failure. Patient was extubated the following day November 06 without requiring invasive monitoring or placing of a central access or arterial line. She was downgraded to telemetry status on day of extubation. Upon evaluation today patient appears to be in good spirits. She states that her breathing is much improved and feels that she is at her baseline. She denies chest pain or discomfort, trouble breathing, abdominal pain, nausea or vomiting. She does state that she has a intermittent dry cough. The patient feels that her breathing is much improved she is audibly wheezing without the need for auscultation. When auscultated wheezing is noted in all fofana. Otherwise physical exam findings have remained consistent. Patient had been treated with nebulizer approximately 20 minutes prior to my examination. Consider outpatient follow up: Patient will likely require rehabilitation again prior to discharge home. Upon final discharge home, patient should be followed up by her PCP Dr. Bouchra Skinner Repeat imaging needed: Should patient deteriorate would repeat chest x-ray Follow up cultures: No repeat indicated original blood cultures on 11/04 were negative 2 Reviewed progress notes, labs, and inpatient medication list Continue current management. Additional recommendations: Will consult PT/OT At this time patient has stabilized; she remains on 3 L nasal cannula without dyspnea or shortness of breath. Medical care will sign off at this time. Thank you for including us in the care of this patient; please feel free to reconsult as needed. CCT: 0 minutes; Level [facility] inpatient billing; not including any billable procedures. Thank you for including us in the care of this patient. Please review Dr. Jomar Oden's addendum for further recommendations. Consults & Procedures Consultants: Pulmonology: Dr. Medeiros Cardiology: Dr. Menard Procedures: Intubated November 04, 2017 in the emergency department Extubated November 05, 2017 in ICU Swallow study for speech: November 07, 2017 without signs of aspiration
[2017-11-10] VITALS (9 sets, daily range): BP systolic 131–161; BP diastolic 69–80; PULSE 67–92; TEMP 36.4–36.9; O2SAT 92–97
[2017-11-10] MEDS: LEVOTHYROXINE 88 MCG TAB NG SCH (05:28)
[2017-11-10] MEDS: ATORVASTATIN 40 MG TAB NG SCH (07:44)
[2017-11-10] MEDS: LANSOPRAZOLE SOLUTAB 30 MG NG SCH (07:45)
[2017-11-10] MEDS: FUROSEMIDE 20 MG TAB NG SCH (07:45)
[2017-11-10] MEDS: APIXABAN 2.5 MG TAB PO SCH ×2 (07:45→21:12)
[2017-11-10] MEDS: DILTIAZEM HCL 30 MG TAB NG SCH ×3 (07:46→21:12)
[2017-11-10] MEDS: ASPIRIN 81 MG CHEW NG SCH (07:48)
[2017-11-10] MEDS: INSULIN ASPART 100 UNITS/ML 3 ML PEN SC SCH ×4 (07:51→21:00)
[2017-11-10 07:53] LABS: BASO % 0.1 %; BASO ABS # 0.01 K/uL (0-0.2); EOS % 1.3 %; EOS ABS # 0.11 K/uL (0-0.5); HEMATOCRIT 42.6 % (37-47); HEMOGLOBIN 13.8 g/dL (12.0-16.0); IG# 0.04 K/uL (0.00-0.02); LYMPH % 21.6 %; LYMPH ABS # 1.77 K/uL (1.2-3.4); MEAN CELL VOLUME 97.3 fL (80-100); MEAN CORPUSCULAR HEMOGLOBIN 31.5 pg (25-34); MEAN CORPUSCULAR HGB CONC 32.4 g/dl (32-36); MEAN PLATELET VOLUME 8.7 fL (7.4-10.4); MONO % 8.4 %; MONO ABS # 0.69 K/uL (0.11-0.59); NEUT % 68.1 %; NEUT ABS # 5.59 K/uL (1.4-6.5); PLATELET COUNT 248 K/uL (130-400); RED CELL DISTRIBUTION WIDTH CV 14.8 % (11.5-14.5); WHITE BLOOD COUNT 8.21 K/uL (4.8-10.8)
[2017-11-10] MEDS: DIGOXIN 0.125 MG TAB NG SCH (16:11)
--- NOTE | 2017-11-10 17:36 | Pulmonology Progress Note ---
Pulmonary Progress Note Date of Service Nov 10, 2017. Attending Dr. Yeboah Subjective The patient is very poor historian, she denies any shortness of breath or cough , although she does have minimal wheezing at the neck area. Objective Patient doing well sitting in bed notably decompensated but showing is no signs of respiratory insufficiency such as accessory muscle use or tachypnea during our conversation Past medical history: Recurrent E. coli UTIs, left bundle branch block, sinus bradycardia/dual-chamber pacemaker, atrial fibrillation, CVA, hypertension, dementia, hypothyroidism, asthma, chronic kidney disease Vital signs: Stable on 3 L nasal cannula with an SaO2 of 95% Respiratory: Decreased breath sounds at the bases left greater than right with some mild dullness to percussion Cardiac: S1-S2 irregular rhythm Abdomen: Soft nontender positive bowel sounds WINDER TENDER: Orientated 2, no focal weakness Workup Microbiology: Negative today Pro-calcitonin 11/05/2017: (0.11-WNL) Video swallow: No penetration or aspiration noted CT thorax 11/07/2017: Notable motion artifact, small left and trace right pleural effusion, subsegmental basilar consolidative opacification/atelectasis, bronchial plugging within the left base, cardiomegaly with 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 Apixaban 5 mg twice daily 2. Xopenex 4 times daily as needed wheezing 3. Aspirin 81 mg daily 4. Prevacid 80 mg daily Her physical exam on 11/10/2017 showed minimal stridor, vital signs are stable, no wheezing, diminished breath sounds at the bases, S1-S2 regular rate and rhythm, abdomen is benign, no edema. Assessment & Plan 1. Left-sided small pleural effusion. 2. Left-sided small atelectasis likely from aspiration. 3. Mild stridor, it is related to laryngitis versus recurrent aspiration. 4. Asthma. Plan: 1. Continue to taper prednisone to off. 2. The patient is already on Eliquis, will hold off on any visualization unless the patient symptoms escalates. 3. Pleural effusion is not amenable to thoracentesis as it is too small and likely reactive to the adjacent atelectasis. 4. Continue bronchodilators. Thank you, will follow as needed. Data Medications: Current Inpatient Medications Medications (Trade) Dose Ordered Sig/Mak Route Start Time Stop Time Status Last Admin Dose Admin Acetaminophen (Tylenol Tab) 650 mg Q4H PRN PO 11/05/17 01:00 12/05/17 00:59 Ondansetron HCl (Zofran Inj) 4 mg Q6H PRN IV 11/05/17 01:00 12/05/17 00:59 Aspirin (Aspirin Chew) 81 mg QAM NG 11/05/17 09:00 12/05/17 08:59 11/10/17 07:48 81 MG Atorvastatin Calcium (Lipitor Tab) 40 mg DAILY NG 11/05/17 09:00 12/05/17 08:59 11/10/17 07:44 40 MG Digoxin (Lanoxin Tab) 0.125 mg DAILY@1600 NG 11/05/17 16:00 12/05/17 15:59 11/10/17 16:11 0.125 MG Diltiazem HCl (Cardizem Tab) 30 mg TID NG 11/05/17 09:00 12/05/17 08:59 11/10/17 14:59 30 MG Furosemide (Lasix Tab) 20 mg DAILY NG 11/05/17 09:00 12/05/17 08:59 11/10/17 07:45 20 MG Latanoprost (Xalatan Oph Soln) 1 drops HS OPB 11/05/17 21:00 12/05/17 20:59 11/09/17 20:35 1 DROPS Levothyroxine Sodium (Synthroid Tab) 88 mcg DAILYBB NG 11/05/17 06:00 12/05/17 05:59 11/10/17 05:28 88 MCG Magnesium Hydroxide (Milk Of Magnesia Susp) 30 ml DAILY PRN PO 11/05/17 01:30 12/05/17 01:29 Docusate Sodium (coLACE CAP) 100 mg BID PRN PO 11/05/17 02:00 12/05/17 01:59 Glucose (Glucose 40% Gel) 15-30 GRAMS 15 GRAMS... UD PRN PO 11/05/17 01:45 12/05/17 01:44 Glucose (Glucose Chew Tab) 4-8 Tablets 4 Tabl... UD PRN PO 11/05/17 01:45 12/05/17 01:44 Dextrose (Dextrose 50% 50ML Syringe) 25-50ML OF 50% DW IV FOR... UD PRN IV 11/05/17 01:45 12/05/17 01:44 Glucagon (Glucagon Inj) 1 mg UD PRN SQ 11/05/17 01:45 12/05/17 01:44 Lansoprazole (Prevacid Solutab) 30 mg DAILY NG 11/05/17 09:00 12/05/17 08:59 11/10/17 07:45 30 MG Midazolam HCl (Versed Inj) 2 mg Q2H PRN IV 11/05/17 02:15 12/05/17 02:14 11/05/17 03:27 2 MG Fentanyl Citrate (Fentanyl Inj) 50 mcg Q2H PRN IV 11/05/17 03:30 11/19/17 03:29 11/05/17 03:37 50 MCG Levalbuterol (Xopenex 1.25MG/ 3ML Neb) 1.25 mg QIDR PRN INH 11/05/17 11:30 12/05/17 11:29 11/09/17 20:11 1.25 MG Insulin Aspart (novoLOG ASPART) SLIDING SCALE If C... ACHS SC 11/07/17 07:00 12/07/17 06:59 11/10/17 12:13 3 UNITS Apixaban (Eliquis Tab) 5 mg BID PO 11/07/17 21:00 12/07/17 20:59 11/10/17 07:45 5 MG Prednisone (PredniSONE TAB) 20 mg QAM PO 11/10/17 09:00 12/10/17 08:59 11/10/17 07:46 20 MG I & O: 24-Hour Column 11/11/17 08:00 Intake Total 240 ml Output Total 1400 ml Balance -1160 ml Vital Signs: Date Time Temp Pulse Resp B/P (MAP) Pulse Ox O2 Delivery O2 Flow Rate FiO2 11/10/17 16:11 65 11/10/17 16:10 36.4 90 16 131/80 (97) 93 Nasal Cannula 2.0 11/10/17 16:00 97 Nasal Cannula 2.0 30 11/10/17 12:00 97 Nasal Cannula 2.0 30 11/10/17 11:22 36.7 80 20 133/75 (94) 93 11/10/17 08:00 97 Nasal Cannula 2.0 30 11/10/17 07:36 36.9 74 18 153/79 (103) 97 11/10/17 04:14 36.8 67 18 153/79 (103) 97 Nasal Cannula 2.0 11/10/17 04:00 Nasal Cannula 2.0 11/09/17 23:59 Nasal Cannula 2.0 11/09/17 23:15 36.5 77 22 170/71 (104) 97 Nasal Cannula 2.0 11/09/17 20:11 89 22 94 Nasal Cannula 3.0 11/09/17 20:00 Nasal Cannula 3.0 11/09/17 19:26 37.0 81 18 167/74 (105) 92 Nasal Cannula 2.0 Laboratory Results: Last 24 Hours Test 11/09/17 20:08 11/10/17 06:55 11/10/17 07:32 11/10/17 11:15 Bedside Glucose 130 mg/dl 90 mg/dl 132 mg/dl White Blood Count 8.21 K/uL Red Blood Count 4.38 M/uL Hemoglobin 13.8 g/dL Hematocrit 42.6 % Mean Corpuscular Volume 97.3 fL Mean Corpuscular Hemoglobin 31.5 pg Mean Corpuscular Hemoglobin Concent 32.4 g/dl Platelet Count 248 K/uL Mean Platelet Volume 8.7 fL Neutrophils (%) (Auto) 68.1 % Lymphocytes (%) (Auto) 21.6 % Monocytes (%) (Auto) 8.4 % Eosinophils (%) (Auto) 1.3 % Basophils (%) (Auto) 0.1 % Neutrophils # (Auto) 5.59 K/uL Lymphocytes # (Auto) 1.77 K/uL Monocytes # (Auto) 0.69 K/uL Eosinophils # (Auto) 0.11 K/uL Basophils # (Auto) 0.01 K/uL RDW Standard Deviation 53.0 fL RDW Coefficient of Variation 14.8 % Immature Granulocyte % (Auto) 0.5 % Immature Granulocyte # (Auto) 0.04 K/uL Sodium Level 139 mmol/L Potassium Level 4.0 mmol/L Chloride Level 98 mmol/L Carbon Dioxide Level 40 mmol/L Anion Gap 0.0 mmol/L Blood Urea Nitrogen 24 mg/dl Creatinine 1.00 mg/dl Est Creatinine Clear Calc Drug Dose 47.1 ml/min Estimated GFR () 59.5 Estimated GFR (Non- 51.3 BUN/Creatinine Ratio 23.5 Random Glucose 98 mg/dl Calcium Level 9.0 mg/dl Magnesium Level 2.3 mg/dl Test 11/10/17 15:56 Bedside Glucose 215 mg/dl
--- NOTE | 2017-11-10 19:42 | Progress Note ---
Medicine Progress Note Date & Time of Visit: Nov 10, 2017 at 19:36. Subjective Pt was seem an examined Lying in bed with no distress Pt continue to wheeze She said that her breathing is slightly improves Pt said that she was not on oxygen supplement before coming to the hospital denies any chest pain, palpitation and fever Objective Last 8 Hrs Date Time Temp Pulse Resp B/P (MAP) Pulse Ox O2 Delivery O2 Flow Rate FiO2 11/10/17 16:11 65 11/10/17 16:10 36.4 90 16 131/80 (97) 93 Nasal Cannula 2.0 11/10/17 16:00 97 Nasal Cannula 2.0 30 11/10/17 12:00 97 Nasal Cannula 2.0 30 Physical Exam: General- No acute distress Head- atraumatic Eyes- PERRL, EOMI ENT- oropharynx clear Neck- supple, no JVD Lungs- +wheezing Heart- irregular rhythm, +murmur Abdomen- normal bowel sounds, soft Extremities- No calf tenderness Neuro- Follow commands, speech fluent, no focal neuro deficit Skin- warm & dry Laboratory Results: Last 24 Hours Test 11/09/17 20:08 11/10/17 06:55 11/10/17 07:32 11/10/17 11:15 Bedside Glucose 130 mg/dl 90 mg/dl 132 mg/dl White Blood Count 8.21 K/uL Red Blood Count 4.38 M/uL Hemoglobin 13.8 g/dL Hematocrit 42.6 % Mean Corpuscular Volume 97.3 fL Mean Corpuscular Hemoglobin 31.5 pg Mean Corpuscular Hemoglobin Concent 32.4 g/dl Platelet Count 248 K/uL Mean Platelet Volume 8.7 fL Neutrophils (%) (Auto) 68.1 % Lymphocytes (%) (Auto) 21.6 % Monocytes (%) (Auto) 8.4 % Eosinophils (%) (Auto) 1.3 % Basophils (%) (Auto) 0.1 % Neutrophils # (Auto) 5.59 K/uL Lymphocytes # (Auto) 1.77 K/uL Monocytes # (Auto) 0.69 K/uL Eosinophils # (Auto) 0.11 K/uL Basophils # (Auto) 0.01 K/uL RDW Standard Deviation 53.0 fL RDW Coefficient of Variation 14.8 % Immature Granulocyte % (Auto) 0.5 % Immature Granulocyte # (Auto) 0.04 K/uL Sodium Level 139 mmol/L Potassium Level 4.0 mmol/L Chloride Level 98 mmol/L Carbon Dioxide Level 40 mmol/L Anion Gap 0.0 mmol/L Blood Urea Nitrogen 24 mg/dl Creatinine 1.00 mg/dl Est Creatinine Clear Calc Drug Dose 47.1 ml/min Estimated GFR () 59.5 Estimated GFR (Non- 51.3 BUN/Creatinine Ratio 23.5 Random Glucose 98 mg/dl Calcium Level 9.0 mg/dl Magnesium Level 2.3 mg/dl Test 11/10/17 15:56 Bedside Glucose 215 mg/dl Assessment & Plan Acute Respiratory failure with hypercapnia: Secondary to Asthma Exacerbation VBG on admission showed PCO2 70 and Ph 7.2 Was intubated on admission Repeat CXR showed extensive left basilar consolidation with moderate left pleural effusion. S/P extubation today Continue oxygen supplement case discussed with [employer] Since pt is very lethargy Plan to get a VBG and consider bipap trial Blood cx pending No leukocytosis and afebrile with normal procalcitonin Continue solumedrol and neb treatment Continue monitor in the ICU 11/06 Clinically improved CXR showed stable to increased left basilar consolidation, likely slight increase in passive atelectasis in the setting of the moderate left pleural effusion. Continue neb treatment and prednisone Blood cx no growth Continue oxygen supplement D/C IVF Continue lasix Will consult pulmonology 11/10 Continue to wheeze, seems to be stridor due to recent intubation and extubation CT chest showed small left and trace right pleural effusions with dependent subsegmental bibasilar consolidative opacities favoring atelectasis. Probable bronchial mucous plugging noted within the left lung base. Continue prednisone taper Speech on board and Video swallow suggest no aspiration Continue neb treatment and oxygen supplement Pulmonary on board case discussed with pulmonology Consult placed for ENT Chronic diastolic CHF: No signs of acute exacerbation CXR showed moderate left pleural effusion. BNP on admission normal Continue lasix 20mg daily diuresis well Cardiology on board ECHO showed * The left ventricle is grossly normal size. * Left ventricular systolic function is normal. * Ejection Fraction = 55-60%. * The right ventricular systolic function is normal. * Grossly normal valvular structure and function. Atrial fibrillation RVR Currently rate controlled Continue Digoxin, Diltiazem Digoxin wnl Cardiology recommended to consider to start on anticoagulant once stable, then consider cardioversion. High risk for fall Continue Eliquis 5 mg BID as per cardio Plan to cardiovert in the future if pt remains on Afib Ascending Thoracic Aneurysm CT chest showed cardiomegaly with fusiform aneurysmal dilation of the ascending thoracic aorta, 4.5 cm. Will need to monitor as an outpatient Hyponatremia Possible related to poor intake vs diuretic Na on admission was 128 Na improved to 137 Resolved CKD stage 3 Creatine on admission stable Creatine 1.1 Stable Hyperglycemia Due to steroid Recent A1C 6.2 Continue monitor H/O CVA: Continue ASA, statins stable HTN: BP elevated Continue BP med Continue monitor BP closely Carotid artery disease: Continue Statin and aspirin Hypothyroidism: TSH wnl Continue Levothyroxine Dementia: Stable Not on any meds at home DVT Px: Heparin SQ Code Status Full No cardioversion Disposition Transfer to medical Current Inpatient Medications: Current Inpatient Medications Medications (Trade) Dose Ordered Sig/Mak Route Start Time Stop Time Status Last Admin Dose Admin Acetaminophen (Tylenol Tab) 650 mg Q4H PRN PO 11/05/17 01:00 12/05/17 00:59 Ondansetron HCl (Zofran Inj) 4 mg Q6H PRN IV 11/05/17 01:00 12/05/17 00:59 Aspirin (Aspirin Chew) 81 mg QAM NG 11/05/17 09:00 12/05/17 08:59 11/10/17 07:48 81 MG Atorvastatin Calcium (Lipitor Tab) 40 mg DAILY NG 11/05/17 09:00 12/05/17 08:59 11/10/17 07:44 40 MG Digoxin (Lanoxin Tab) 0.125 mg DAILY@1600 NG 11/05/17 16:00 12/05/17 15:59 11/10/17 16:11 0.125 MG Diltiazem HCl (Cardizem Tab) 30 mg TID NG 11/05/17 09:00 12/05/17 08:59 11/10/17 14:59 30 MG Furosemide (Lasix Tab) 20 mg DAILY NG 11/05/17 09:00 12/05/17 08:59 11/10/17 07:45 20 MG Latanoprost (Xalatan Oph Soln) 1 drops HS OPB 11/05/17 21:00 12/05/17 20:59 11/09/17 20:35 1 DROPS Levothyroxine Sodium (Synthroid Tab) 88 mcg DAILYBB NG 11/05/17 06:00 12/05/17 05:59 11/10/17 05:28 88 MCG Magnesium Hydroxide (Milk Of Magnesia Susp) 30 ml DAILY PRN PO 11/05/17 01:30 12/05/17 01:29 Docusate Sodium (coLACE CAP) 100 mg BID PRN PO 11/05/17 02:00 12/05/17 01:59 Glucose (Glucose 40% Gel) 15-30 GRAMS 15 GRAMS... UD PRN PO 11/05/17 01:45 12/05/17 01:44 Glucose (Glucose Chew Tab) 4-8 Tablets 4 Tabl... UD PRN PO 11/05/17 01:45 12/05/17 01:44 Dextrose (Dextrose 50% 50ML Syringe) 25-50ML OF 50% DW IV FOR... UD PRN IV 11/05/17 01:45 12/05/17 01:44 Glucagon (Glucagon Inj) 1 mg UD PRN SQ 11/05/17 01:45 12/05/17 01:44 Lansoprazole (Prevacid Solutab) 30 mg DAILY NG 11/05/17 09:00 12/05/17 08:59 11/10/17 07:45 30 MG Midazolam HCl (Versed Inj) 2 mg Q2H PRN IV 11/05/17 02:15 12/05/17 02:14 11/05/17 03:27 2 MG Fentanyl Citrate (Fentanyl Inj) 50 mcg Q2H PRN IV 11/05/17 03:30 11/19/17 03:29 11/05/17 03:37 50 MCG Levalbuterol (Xopenex 1.25MG/ 3ML Neb) 1.25 mg QIDR PRN INH 11/05/17 11:30 12/05/17 11:29 11/09/17 20:11 1.25 MG Insulin Aspart (novoLOG ASPART) SLIDING SCALE If C... ACHS SC 11/07/17 07:00 12/07/17 06:59 11/10/17 12:13 3 UNITS Apixaban (Eliquis Tab) 5 mg BID PO 11/07/17 21:00 12/07/17 20:59 11/10/17 07:45 5 MG Prednisone (PredniSONE TAB) 20 mg QAM PO 11/10/17 09:00 12/10/17 08:59 11/10/17 07:46 20 MG
[2017-11-10] MEDS: LATANOPROST 0.005% OP SOLN 2.5 ML BTL OPB SCH (21:13)
[2017-11-11] VITALS (8 sets, daily range): BP systolic 128–159; BP diastolic 69–83; PULSE 72–95; TEMP 36.3–36.8; O2SAT 92–98
[2017-11-11] MEDS: LEVOTHYROXINE 88 MCG TAB NG SCH (05:16)
[2017-11-11] MEDS: ATORVASTATIN 40 MG TAB NG SCH (08:12)
[2017-11-11] MEDS: FUROSEMIDE 20 MG TAB NG SCH (08:13)
[2017-11-11] MEDS: DILTIAZEM HCL 30 MG TAB NG SCH ×3 (08:13→20:57)
[2017-11-11] MEDS: LANSOPRAZOLE SOLUTAB 30 MG NG SCH (08:13)
[2017-11-11] MEDS: APIXABAN 2.5 MG TAB PO SCH ×2 (08:13→20:57)
[2017-11-11] MEDS: ASPIRIN 81 MG CHEW NG SCH (08:14)
[2017-11-11] MEDS: INSULIN ASPART 100 UNITS/ML 3 ML PEN SC SCH ×4 (08:16→21:00)
[2017-11-11] MEDS: DIGOXIN 0.125 MG TAB NG SCH (16:58)
--- NOTE | 2017-11-11 17:48 | Progress Note ---
Internal Med Progress Note Date of Service: Nov 11, 2017. Provider Documentation: SUBJECTIVE: Has persistent cough, audible wheeze Requiring 2.5 L of oxygen via nasal cannula -was not on home O2 OBJECTIVE: Vital Signs-as noted below Exam: General- No acute distress, obese Head- atraumatic Eyes- PERRL, EOMI ENT- oropharynx clear Neck- supple, no JVD Lungs- +wheezing, rales at bases Heart- irregular rhythm, +murmur Abdomen- normal bowel sounds, soft Extremities- No calf tenderness Neuro- Follow commands, speech fluent, no focal neuro deficit Skin- warm & dry Lab data as noted below. ASSESSMENT & PLAN: ACUTE HYPOXEMIC RESPIRATORY FAILURE WITH HYPERCAPNIA: Secondary to COPD exacerbation VBG on admission showed PCO2 70 and Ph 7.2 Required mechanical ventilation on admission Repeat CXR showed extensive left basilar consolidation with moderate left pleural effusion. Respiratory status improved, on supplemental oxygen via nasal cannula Was not on home O2 Will need to step exercise for home O2 assessment if patient is returning home CXR showed stable to increased left basilar consolidation, likely slight increase in passive atelectasis in the setting of the moderate left pleural effusion. Continue neb treatment and prednisone Blood cx no growth CT chest showed small left and trace right pleural effusions with dependent subsegmental bibasilar consolidative opacities favoring atelectasis. Probable bronchial mucous plugging noted within the left lung base. Speech on board and Video swallow suggest no aspiration Pulmonary on board case discussed with pulmonology Consult placed for ENT-for stridor appreciate input Patient refused laryngoscopy Possible transient stridor secondary to mechanical intubation resolved No further ENT testing needed CHRONIC DIASTOLIC CHF: BNP on admission normal Continue lasix 20mg daily Cardiology on board ECHO showed * The left ventricle is grossly normal size. * Left ventricular systolic function is normal. * Ejection Fraction = 55-60%. * The right ventricular systolic function is normal. * Grossly normal valvular structure and function. ATRIAL FIBRILLATION RVR Currently rate controlled Continue Digoxin, Diltiazem Digoxin wnl Continue Eliquis 5 mg BID as per cardio Plan to cardiovert in the future if pt remains on Afib ASCENDING THORACIC ANEURYSM CT chest showed cardiomegaly with fusiform aneurysmal dilation of the ascending thoracic aorta, 4.5 cm. Will need to monitor as an outpatient CKD STAGE 3 Stable HYPERGLYCEMIA Due to steroid Recent A1C 6.2 Insulin sliding scale Continue monitor H/O CVA: Continue ASA, statins stable HTN: Continue BP med CAROTID ARTERY DISEASE: Continue Statin and aspirin HYPOTHYROIDISM: TSH wnl Continue Levothyroxine DEMENTIA: Stable Not on any meds at home DVT Px: Eliquis Code Status Full No cardioversion DISPOSITION To be determined Patient presents with significant deconditioning/respiratory failure PT OT patient will benefit patient rehab Multiple conversation with patient/ with community case manager Has been insist patient should return home with home health and arrangements for administrator of home health Not safe to return home as patient also have significant medical issues will continue to discuss with patient and family for safe discharge Vital Signs: Date Time Temp Pulse Resp B/P (MAP) Pulse Ox O2 Delivery O2 Flow Rate FiO2 11/12/17 08:30 93 Nasal Cannula 2.5 11/12/17 07:15 36.3 70 18 178/83 (114) 93 Nasal Cannula 2.5 11/12/17 00:00 Nasal Cannula 2.0 11/11/17 22:34 36.4 80 19 159/79 (105) 94 Nasal Cannula 3.0 11/11/17 20:56 89 148/83 (104) 11/11/17 16:58 72 11/11/17 16:00 Nasal Cannula 3.0 11/11/17 15:46 36.3 74 16 154/75 (101) 92 Nasal Cannula 3.0 11/11/17 15:30 36.4 80 20 97 2.0 Lab Results: Results Past 24 Hours Test 11/11/17 16:42 11/11/17 19:49 11/12/17 07:27 11/12/17 11:24 Range/Units Bedside Glucose 153 160 92 112 70-90 mg/dl
--- NOTE | 2017-11-11 19:34 | ENT CONSULTATION ---
DATE OF CONSULTATION: 11/11/2017 I have been asked by Dr. Juan Miguel Nieves to evaluate this patient with "stridor." HISTORY OF PRESENT ILLNESS: The patient is an 87-year-old female who was admitted to [facility] on 11/04/2017 from the Emergency Room with shortness of breath. She was evaluated by critical care and was found to have acute respiratory failure secondary to a presumed asthma exacerbation and was intubated in the Emergency Room and placed on the ventilator. I believe that she was only intubated for 1 day, but since extubation was noted to have some biphasic stridor by pulmonary consultation as well as by her hospitalist team. Dr. Nieves evaluated the patient yesterday and placed an otolaryngology consult but did not contact me nor did the community development planner contact me. I saw that she was on my census in the electronic medical record. The patient was recently transferred to a routine regular floor bed. She subjectively denies any shortness of breath. She feels much better than when she originally presented 1 week ago. ALLERGIES: ADHESIVE TAPE AND PENICILLIN. CURRENT MEDICATIONS: Prednisone 20 mg daily, Eliquis, insulin sliding scale, Xalatan ophthalmic solution, digoxin, Xopenex, baby aspirin, atorvastatin, diltiazem, lansoprazole, levothyroxine, fentanyl p.r.n., Versed p.r.n., Colace p.r.n., milk of magnesia p.r.n., Tylenol p.r.n., and Zofran p.r.n. PAST MEDICAL HISTORY: 1. Asthma. 2. Dementia. 3. Hypertension. 4. Hypothyroidism. 5. History of multinodular goiter status post subtotal thyroidectomy. 6. History of cerebrovascular disease. 7. Carotid artery disease. 8. Mitral valve regurgitation. 9. Tricuspid valve regurgitation. 10. Atrial fibrillation. 11. Congestive heart failure. 12. History of urosepsis. 13. Osteoporosis. 14. Osteoarthritis. 15. Chronic renal insufficiency. 16. History of syncopal episode, status post pacemaker placement in 2009. 17. First degree AV block/sinus bradycardia. PAST SURGICAL HISTORY: 1. Status post cardiac pacemaker placement. 2. Status post knee replacement. 3. Status post subtotal thyroidectomy. 4. Status post hip surgery. FAMILY HISTORY: Noncontributory. SOCIAL HISTORY: The patient is and lives with her . There is no tobacco, alcohol, or illicit drug use. The patient is retired. REVIEW OF SYSTEMS: The patient currently denies any shortness of breath or noisy breathing. She denies any otalgia, odynophagia, dysphagia, or unexplained weight loss. PHYSICAL EXAMINATION: GENERAL: This is an elderly white female, in no acute distress with certainly no inspiratory or expiratory stridor as described in previous notes. She is afebrile. VITAL SIGNS: Stable. She is mildly hypertensive with her last blood pressure of 154/75. Her oxygen saturation is 92% on 3 L of oxygen via nasal cannula. It has ranged from 92% to 97% throughout today. External auditory canals and tympanic membranes are clear. Nasal examination reveals a relatively midline septum with no mucosal lesions or masses. Oral cavity and oropharyngeal examination reveals dry mucous membranes with some hardened secretions coating her posterior pharyngeal wall. NECK: Reveals a large thyroidectomy collar incision with a mild hypertrophic scar but no significant lymphadenopathy. Her trachea does seem to be slightly deviated to the right. I cannot see or feel any thyroid nodularity. After careful discussion with the patient regarding possible laryngoscopy, the patient refuses this examination. The patient's imaging was reviewed. She had a barium swallow on 11/07/2017 which was normal. She had a CT scan of the chest which showed some residual multinodular goiter with slight deviation of the trachea to the right but not significant airway compromise. IMPRESSION AND RECOMMENDATIONS: An 87-year-old female with a recent intubation and extubation who had what sounds like biphasic stridor which has now resolved. She refuses laryngoscopy. I do not believe that it is urgent to do so as the patient does not exhibit any stridor. On auscultation of her lungs and her neck, there is some mild biphasic wheezing rather than stridor and this may be related to her recent asthma exacerbation and/or her mild tracheal deviation to the right hand side based on her residual goiter. The patient does not need any otolaryngologic urgent intervention at this time. Since the patient does not exhibit any stridor, I will sign off on this consultation, but if she redevelops stridor, if you have any concerns, please do not hesitate to contact me.
[2017-11-11] MEDS: LATANOPROST 0.005% OP SOLN 2.5 ML BTL OPB SCH (21:00)
[2017-11-12] MEDS: LEVOTHYROXINE 88 MCG TAB NG SCH (06:32)
[2017-11-12 07:15] VITALS: BP 178/83; PULSE 70; TEMP 36.3; O2SAT 93
[2017-11-12] MEDS: FUROSEMIDE 20 MG TAB NG SCH (08:21)
[2017-11-12] MEDS: APIXABAN 2.5 MG TAB PO SCH ×2 (08:21→20:31)
[2017-11-12] MEDS: DILTIAZEM HCL 30 MG TAB NG SCH (08:21)
[2017-11-12] MEDS: LANSOPRAZOLE SOLUTAB 30 MG NG SCH (08:22)
[2017-11-12] MEDS: ATORVASTATIN 40 MG TAB NG SCH (08:22)
[2017-11-12] MEDS: INSULIN ASPART 100 UNITS/ML 3 ML PEN SC SCH ×4 (08:29→20:25)
[2017-11-12 08:30] VITALS: O2SAT 93
[2017-11-12] MEDS: ASPIRIN 81 MG CHEW NG SCH (08:30)
--- NOTE | 2017-11-12 13:27 | Progress Note ---
Progress Note Date of Service Nov 12, 2017. Progress Note Patient's blood pressure elevated to 170 Has been on Cardizem 30 mg 3 times daily started in ICU for rapid A. fib Outpatient medications lisinopril 10 mg daily/Lopressor resumed Cardizem dose adjusted to 60 mg twice daily-with holding parameters Patient will be on chronic anticoagulation with Eliquis
[2017-11-12 14:48] VITALS: BP 126/72; PULSE 85; TEMP 36.4; O2SAT 94
[2017-11-12 16:00] VITALS: O2SAT 94
[2017-11-12] MEDS: DIGOXIN 0.125 MG TAB NG SCH (16:45)
--- NOTE | 2017-11-12 17:45 | Progress Note ---
Internal Med Progress Note Date of Service: Nov 12, 2017. Provider Documentation: SUBJECTIVE: Mentions breathing still the same Has nonproductive cough Requiring supplemental oxygen PT evaluation, needs maximum assist, able to sit on bedside for 5 minutes Spoke with Mr. Aakash Huggins over phone Has been insist patient should return home In rehab/hospital made her more sick and weak Wants patient to be on chair at least 3 times daily Mentions patient should be be able to transfer/to assist in ADLs prior to returning home Does not want her to be on oxygen/says "giving her too much oxygen in the hospital is making her sick" has LVAD/which risks present severe cardiomyopathy and should refrain from any heavy weightlifting or exertion Updated Mr. Huggins : Patient has significant decline in heart function and respiratory status Need maximum assist and 24 hour oxygen in the next few weeks to months Patient also not very enthusiastic to participate in PT OT Declines to get out of bed Expectation of getting patient according to his record functional level in 2-3 days he is not realistic Given his own severe of cardiac illness-he is not interested to provide complete care for the patient Discharging the patient home/with being caregiver-could lead to a life- threatening situation for both of them Mr. Huggins verbalized understanding, advised of his poor health But continues to insist that his will become better once she returns home Does not want patient to be transferred to a chair using clotilde lift As he does not have any lift at home will continue to do physical therapy for the patient Not safe to return home -Discharge planning remains uncertain OBJECTIVE: Vital Signs-as noted below Exam: General- No acute distress, obese Head- atraumatic Eyes- PERRL, EOMI ENT- oropharynx clear Neck- supple, no JVD Lungs- +wheezing, rales at bases Heart- irregular rhythm, +murmur Abdomen- normal bowel sounds, soft Extremities- No calf tenderness Neuro- Follow commands, speech fluent, no focal neuro deficit Skin- warm & dry Lab data as noted below. ASSESSMENT & PLAN: ACUTE HYPOXEMIC RESPIRATORY FAILURE WITH HYPERCAPNIA: Secondary to COPD exacerbation VBG on admission showed PCO2 70 and Ph 7.2 Required mechanical ventilation on admission Repeat CXR showed extensive left basilar consolidation with moderate left pleural effusion. Respiratory status improved, on supplemental oxygen via nasal cannula Was not on home O2 Will need to step exercise for home O2 assessment if patient is returning home Patient gets very irritated with suggestion of home Does not want supplemental oxygen, "I will never wear oxygen at home " Continue neb treatment and prednisone Blood cx no growth CT chest showed small left and trace right pleural effusions with dependent subsegmental bibasilar consolidative opacities favoring atelectasis. Probable bronchial mucous plugging noted within the left lung base. Speech on board and Video swallow suggest no aspiration CHRONIC DIASTOLIC CHF: BNP on admission normal Continue lasix 20mg daily Cardiology consulted, appreciate input ECHO showed * The left ventricle is grossly normal size. * Left ventricular systolic function is normal. * Ejection Fraction = 55-60%. * The right ventricular systolic function is normal. * Grossly normal valvular structure and function. ATRIAL FIBRILLATION RVR Currently rate controlled Continue Digoxin, Diltiazem Continue Eliquis 5 mg BID as per cardio Plan to cardiovert in the future if pt remains on Afib ASCENDING THORACIC ANEURYSM CT chest showed cardiomegaly with fusiform aneurysmal dilation of the ascending thoracic aorta, 4.5 cm. Will need to monitor as an outpatient CKD STAGE 3 Stable HYPERGLYCEMIA Due to steroid Recent A1C 6.2 Insulin sliding scale Continue monitor H/O CVA: Continue ASA, statins stable HTN: Continue BP med CAROTID ARTERY DISEASE: Continue Statin and aspirin HYPOTHYROIDISM: TSH wnl Continue Levothyroxine DEMENTIA: Stable Not on any meds at home DVT Px: Eliquis Code Status Full No cardioversion DISPOSITION To be determined Patient presents with significant deconditioning/respiratory failure PT OT -recommends patient will benefit patient rehab Multiple conversation with patient/ with bilingual case manager Has been insist patient should return home with home health and arrangements for home health care physician Not safe to return home as patient also have significant medical issues will continue to discuss with patient and family for safe discharge Vital Signs: Date Time Temp Pulse Resp B/P (MAP) Pulse Ox O2 Delivery O2 Flow Rate FiO2 11/13/17 17:05 72 11/13/17 16:30 93 Nasal Cannula 2.0 11/13/17 15:33 35.6 68 20 113/57 (75) 98 Nasal Cannula 2.0 11/13/17 08:30 93 Nasal Cannula 2.5 11/13/17 07:12 36.6 71 20 156/75 (102) 95 Nasal Cannula 2.0 11/13/17 00:03 36.7 71 20 167/81 (109) 99 Nasal Cannula 2.0 11/13/17 00:00 Nasal Cannula 2.0 Lab Results: Results Past 24 Hours Test 11/12/17 20:03 11/13/17 07:40 11/13/17 11:44 11/13/17 16:30 Range/Units Bedside Glucose 116 92 131 190 70-90 mg/dl
[2017-11-12] MEDS: DILTIAZEM HCL 30 MG TAB PO SCH (20:31)
[2017-11-12] MEDS: LATANOPROST 0.005% OP SOLN 2.5 ML BTL OPB SCH (20:32)
[2017-11-13 00:03] VITALS: BP 167/81; PULSE 71; TEMP 36.7; O2SAT 99
[2017-11-13] MEDS: LEVOTHYROXINE 88 MCG TAB NG SCH (06:53)
[2017-11-13 07:12] VITALS: BP 156/75; PULSE 71; TEMP 36.6; O2SAT 95
[2017-11-13] MEDS: ATORVASTATIN 40 MG TAB NG SCH (07:47)
[2017-11-13] MEDS: APIXABAN 2.5 MG TAB PO SCH ×2 (07:47→20:29)
[2017-11-13] MEDS: DILTIAZEM HCL 30 MG TAB PO SCH ×2 (07:48→20:38)
[2017-11-13] MEDS: METOPROLOL SUCC 50MG EXT REL TAB PO SCH (07:48)
[2017-11-13] MEDS: POTASSIUM CHLORIDE 20 MEQ TABCR PO SCH (07:49)
[2017-11-13] MEDS: FUROSEMIDE 20 MG TAB NG SCH (07:49)
[2017-11-13] MEDS: LISINOPRIL 10 MG TAB PO SCH (07:49)
[2017-11-13] MEDS: LANSOPRAZOLE SOLUTAB 30 MG NG SCH (07:49)
[2017-11-13] MEDS: ASPIRIN 81 MG CHEW NG SCH (08:23)
[2017-11-13 08:30] VITALS: O2SAT 93
[2017-11-13] MEDS: INSULIN ASPART 100 UNITS/ML 3 ML PEN SC SCH ×4 (08:32→20:37)
[2017-11-13 15:33] VITALS: BP 113/57; PULSE 68; TEMP 35.6; O2SAT 98
[2017-11-13 16:30] VITALS: O2SAT 93
[2017-11-13] MEDS: DIGOXIN 0.125 MG TAB NG SCH (17:05)
[2017-11-13] MEDS: LATANOPROST 0.005% OP SOLN 2.5 ML BTL OPB SCH (20:32)
[2017-11-13 20:46] VITALS: BP 120/72; PULSE 68; O2SAT 90
[2017-11-14] VITALS (7 sets, daily range): BP systolic 100–130; BP diastolic 55–80; PULSE 66–79; TEMP 36.3–36.6; O2SAT 91–93
[2017-11-14] MEDS: LEVOTHYROXINE 88 MCG TAB NG SCH (06:15)
--- NOTE | 2017-11-14 06:21 | Progress Note ---
Internal Med Progress Note Date of Service: Nov 13, 2017. Provider Documentation: LATE ENTRY , PT WAS SEEN APPROX AT 6:45 PM ON 11/13/17 SUBJECTIVE: was able to be OOB to chair today with Gil lift pt could not do transfer with 2 person max assist denies of any discomfort says breathing and cough is the same no fever or chills OBJECTIVE: Vital Signs-as noted below Exam: General- No acute distress, obese Head- atraumatic Eyes- PERRL, EOMI ENT- oropharynx clear Neck- supple, no JVD Lungs- +wheezing, rales at bases Heart- irregular rhythm, +murmur Abdomen- normal bowel sounds, soft Extremities- No calf tenderness Neuro- Follow commands, speech fluent, no focal neuro deficit Skin- warm & dry Lab data as noted below. ASSESSMENT & PLAN: ACUTE HYPOXEMIC RESPIRATORY FAILURE WITH HYPERCAPNIA: respiratory status improved Secondary to COPD exacerbation VBG on admission showed PCO2 70 and Ph 7.2 Required mechanical ventilation on admission Repeat CXR showed extensive left basilar consolidation with moderate left pleural effusion. Respiratory status improved, on supplemental oxygen via nasal cannula Was not on home O2 Will need to step exercise for home O2 assessment if patient is returning home Patient gets very irritated with suggestion of home Does not want supplemental oxygen, "I will never wear oxygen at home " Continue neb treatment and prednisone Blood cx no growth CT chest showed small left and trace right pleural effusions with dependent subsegmental bibasilar consolidative opacities favoring atelectasis. Probable bronchial mucous plugging noted within the left lung base. Speech on board and Video swallow suggest no aspiration pt will be encouraged to be OOB and increase activity as tolerated CHRONIC DIASTOLIC CHF: stable BNP on admission normal Continue lasix 20mg daily Cardiology consulted, appreciate input ECHO showed * The left ventricle is grossly normal size. * Left ventricular systolic function is normal. * Ejection Fraction = 55-60%. * The right ventricular systolic function is normal. * Grossly normal valvular structure and function. ATRIAL FIBRILLATION RVR Currently rate controlled Continue Digoxin, Diltiazem Continue Eliquis 5 mg BID as per cardio Plan to cardiovert in the future if pt remains on Afib ASCENDING THORACIC ANEURYSM CT chest showed cardiomegaly with fusiform aneurysmal dilation of the ascending thoracic aorta, 4.5 cm. Will need to monitor as an outpatient CKD STAGE 3 Stable HYPERGLYCEMIA Due to steroid Recent A1C 6.2 Insulin sliding scale Continue monitor H/O CVA: Continue ASA, statins stable HTN: Continue BP med CAROTID ARTERY DISEASE: Continue Statin and aspirin HYPOTHYROIDISM: TSH wnl Continue Levothyroxine DEMENTIA: Stable Not on any meds at home DVT Px: Eliquis Code Status Full No cardioversion DISPOSITION To be determined Patient presents with significant deconditioning/respiratory failure PT OT -recommends patient will benefit patient rehab Multiple conversation with patient/ with telephonic case manager Has been insist patient should return home with home health and arrangements for homemaker companion Not safe to return home as patient also have significant medical issues will continue to discuss with patient and family for safe discharge Vital Signs: Date Time Temp Pulse Resp B/P (MAP) Pulse Ox O2 Delivery O2 Flow Rate FiO2 11/14/17 00:29 36.4 72 20 130/80 (97) 91 Room Air 11/14/17 00:00 Nasal Cannula 2.0 11/13/17 20:46 68 18 120/72 (88) 90 Room Air 11/13/17 20:00 Room Air 11/13/17 17:05 72 11/13/17 16:30 93 Nasal Cannula 2.0 11/13/17 15:33 35.6 68 20 113/57 (75) 98 Nasal Cannula 2.0 11/13/17 08:30 93 Nasal Cannula 2.5 11/13/17 07:12 36.6 71 20 156/75 (102) 95 Nasal Cannula 2.0 Lab Results: Results Past 24 Hours Test 11/13/17 07:40 11/13/17 11:44 11/13/17 16:30 11/13/17 20:11 Range/Units Bedside Glucose 92 131 190 186 70-90 mg/dl
[2017-11-14] MEDS ORDERED: ELQ25 PO (06:27)
[2017-11-14] MEDS: ATORVASTATIN 40 MG TAB NG SCH (08:23)
[2017-11-14] MEDS: POTASSIUM CHLORIDE 20 MEQ TABCR PO SCH (08:23)
[2017-11-14] MEDS: APIXABAN 2.5 MG TAB PO SCH ×2 (08:23→20:15)
[2017-11-14] MEDS: LANSOPRAZOLE SOLUTAB 30 MG NG SCH (08:23)
[2017-11-14] MEDS: DILTIAZEM HCL 120 MG CAPCR PO SCH (08:23)
[2017-11-14] MEDS: FUROSEMIDE 20 MG TAB PO SCH (08:24)
[2017-11-14] MEDS: METOPROLOL SUCC 50MG EXT REL TAB PO SCH (08:24)
[2017-11-14] MEDS: LISINOPRIL 10 MG TAB PO SCH (08:24)
[2017-11-14] MEDS: INSULIN ASPART 100 UNITS/ML 3 ML PEN SC SCH ×4 (08:28→21:06)
[2017-11-14] MEDS: ASPIRIN 81 MG CHEW NG SCH (12:13)
[2017-11-14] MEDS: DIGOXIN 0.125 MG TAB NG SCH (15:56)
--- NOTE | 2017-11-14 17:30 | Progress Note ---
Internal Med Progress Note Date of Service: Nov 14, 2017. Provider Documentation: SUBJECTIVE: Pt was transferred from bed to chair -2 person maximum assist met with Aakash Huggins with [employer] /M[facility] Ham keeps on insisting wants to take pt home even when reminded multiple times by Myself /[employer] Project Engineer therapy was present during the encounter -updated that pt could not lift herself up even few inches form bed /needs max support to turn Not same to discharge home does not want to hear anything about our recommendation keeps on talking about how all the skilled facilities been poor quality and his never got any benefit form it other than getting more sick he is convinced [facility] mixed something in her med which caused her to be unresponsive and end up in ICU on vent He is very disgruntle about all local SNF and placed multiple complaints including to going to higher authorities Thinks [facility] is a " [facility] " , the director should be sacked He is planning a law suite /or filed to law suite against [facility] OBJECTIVE: Vital Signs-as noted below Exam: General- No acute distress, obese Head- atraumatic Eyes- PERRL, EOMI ENT- oropharynx clear Neck- supple, no JVD Lungs- +wheezing, rales at bases Heart- irregular rhythm, +murmur Abdomen- normal bowel sounds, soft Extremities- No calf tenderness Neuro- Follow commands, speech fluent, no focal neuro deficit Skin- warm & dry Lab data as noted below. ASSESSMENT & PLAN: ACUTE HYPOXEMIC RESPIRATORY FAILURE WITH HYPERCAPNIA: respiratory status improved Not requiring oxygen at rest Secondary to COPD exacerbation VBG on admission showed PCO2 70 and Ph 7.2 Required mechanical ventilation on admission Repeat CXR showed extensive left basilar consolidation with moderate left pleural effusion. Continue neb treatment and prednisone Blood cx no growth CT chest showed small left and trace right pleural effusions with dependent subsegmental bibasilar consolidative opacities favoring atelectasis. Probable bronchial mucous plugging noted within the left lung base. Speech on board and Video swallow suggest no aspiration pt will be encouraged to be OOB and increase activity as tolerated unable to transfer herself or change her position needs complete assistance is updated Insist getting patient discharged home CHRONIC DIASTOLIC CHF: stable BNP on admission normal Continue lasix 20mg daily Cardiology consulted, appreciate input ECHO showed * The left ventricle is grossly normal size. * Left ventricular systolic function is normal. * Ejection Fraction = 55-60%. * The right ventricular systolic function is normal. * Grossly normal valvular structure and function. ATRIAL FIBRILLATION RVR Currently rate controlled Continue Digoxin, Diltiazem Continue Eliquis 5 mg BID as per cardio Plan to cardiovert in the future if pt remains on Afib ASCENDING THORACIC ANEURYSM CT chest showed cardiomegaly with fusiform aneurysmal dilation of the ascending thoracic aorta, 4.5 cm. Will need to monitor as an outpatient CKD STAGE 3 Stable HYPERGLYCEMIA Due to steroid Recent A1C 6.2 Insulin sliding scale Continue monitor H/O CVA: Continue ASA, statins stable HTN: Continue BP med CAROTID ARTERY DISEASE: Continue Statin and aspirin HYPOTHYROIDISM: TSH wnl Continue Levothyroxine DEMENTIA: Stable Not on any meds at home DVT Px: Eliquis Code Status Full No cardioversion DISPOSITION To be determined Patient presents with significant deconditioning/respiratory failure PT OT -recommends patient will benefit patient rehab Multiple conversation with patient/ with manager case management Has been insist patient should return home with home health and arrangements for home teaching grades 7 and 8 teacher Not safe to return home as patient also have significant medical issues will continue to discuss with patient and family for safe discharge Vital Signs: Date Time Temp Pulse Resp B/P (MAP) Pulse Ox O2 Delivery O2 Flow Rate FiO2 11/16/17 08:34 99 Nasal Cannula 11/16/17 07:41 36.4 63 16 121/72 (88) 99 Nasal Cannula 2.0 11/16/17 00:00 Room Air 11/15/17 23:26 36.6 71 18 110/68 (82) 98 Nasal Cannula 2.0 11/15/17 16:41 96 Nasal Cannula 2.0 11/15/17 15:42 68 Lab Results: Results Past 24 Hours Test 11/15/17 16:36 11/15/17 19:50 11/16/17 07:43 11/16/17 11:31 Range/Units Bedside Glucose 155 205 107 184 70-90 mg/dl
[2017-11-14] MEDS: LATANOPROST 0.005% OP SOLN 2.5 ML BTL OPB SCH (20:15)
[2017-11-15] MEDS: LEVOTHYROXINE 88 MCG TAB NG SCH (06:05)
[2017-11-15 07:14] LABS: CREATININE 1.45 mg/dl (0.60-1.20)
[2017-11-15 07:19] VITALS: BP 122/74; PULSE 61; TEMP 36.4; O2SAT 96
[2017-11-15] MEDS: POTASSIUM CHLORIDE 20 MEQ TABCR PO SCH (07:54)
[2017-11-15] MEDS: METOPROLOL SUCC 50MG EXT REL TAB PO SCH (07:54)
[2017-11-15] MEDS: ATORVASTATIN 40 MG TAB NG SCH (07:54)
[2017-11-15] MEDS: APIXABAN 2.5 MG TAB PO SCH ×2 (07:54→20:21)
[2017-11-15] MEDS: FUROSEMIDE 20 MG TAB PO SCH (07:54)
[2017-11-15] MEDS: LISINOPRIL 10 MG TAB PO SCH (07:55)
[2017-11-15] MEDS: LANSOPRAZOLE SOLUTAB 30 MG NG SCH (07:55)
[2017-11-15] MEDS: DILTIAZEM HCL 120 MG CAPCR PO SCH (07:55)
[2017-11-15 08:30] VITALS: O2SAT 96
[2017-11-15] MEDS: INSULIN ASPART 100 UNITS/ML 3 ML PEN SC SCH ×4 (09:06→20:28)
[2017-11-15] MEDS: ASPIRIN 81 MG CHEW NG SCH ×2 (09:30→13:04)
[2017-11-15] MEDS: DIGOXIN 0.125 MG TAB NG SCH (15:42)
[2017-11-15 16:41] VITALS: O2SAT 96
[2017-11-15] MEDS: LATANOPROST 0.005% OP SOLN 2.5 ML BTL OPB SCH (20:21)
--- NOTE | 2017-11-15 20:22 | Progress Note ---
Internal Med Progress Note Date of Service: Nov 15, 2017. Provider Documentation: SUBJECTIVE: No improvement in functional status, requiring max assist to transfer Denies of any discomfort In room air Continue to have worse productive cough Denies of any shortness of breath No fever chills OBJECTIVE: Vital Signs-as noted below Exam: General- No acute distress, obese Head- atraumatic Eyes- PERRL, EOMI ENT- oropharynx clear Neck- supple, no JVD Lungs- +wheezing, rales at bases Heart- irregular rhythm, +murmur Abdomen- normal bowel sounds, soft Extremities- No calf tenderness Neuro- Follow commands, speech fluent, no focal neuro deficit Skin- warm & dry Lab data as noted below. ASSESSMENT & PLAN: ACUTE HYPOXEMIC RESPIRATORY FAILURE WITH HYPERCAPNIA: respiratory status improved Not requiring oxygen at rest Secondary to COPD exacerbation VBG on admission showed PCO2 70 and Ph 7.2 Required mechanical ventilation on admission Repeat CXR showed extensive left basilar consolidation with moderate left pleural effusion. Continue neb treatment and prednisone Blood cx no growth CT chest showed small left and trace right pleural effusions with dependent subsegmental bibasilar consolidative opacities favoring atelectasis. Probable bronchial mucous plugging noted within the left lung base. Speech on board and Video swallow suggest no aspiration pt will be encouraged to be OOB and increase activity as tolerated no able to transfer herself requires complete assistance for transfer /change of position is updated Insist getting patient discharged home CHRONIC DIASTOLIC CHF: stable BNP on admission normal Continue lasix 20mg daily Cardiology consulted, appreciate input ECHO showed * The left ventricle is grossly normal size. * Left ventricular systolic function is normal. * Ejection Fraction = 55-60%. * The right ventricular systolic function is normal. * Grossly normal valvular structure and function. ATRIAL FIBRILLATION RVR Currently rate controlled Continue Digoxin, Diltiazem Continue Eliquis 5 mg BID as per cardio Plan to cardiovert in the future if pt remains on Afib ASCENDING THORACIC ANEURYSM CT chest showed cardiomegaly with fusiform aneurysmal dilation of the ascending thoracic aorta, 4.5 cm. Will need to monitor as an outpatient CKD STAGE 3 Stable HYPERGLYCEMIA Due to steroid Recent A1C 6.2 Insulin sliding scale Continue monitor H/O CVA: Continue ASA, statins stable HTN: Continue BP med CAROTID ARTERY DISEASE: Continue Statin and aspirin HYPOTHYROIDISM: TSH wnl Continue Levothyroxine DEMENTIA: Stable Not on any meds at home DVT Px: Eliquis Code Status Full No cardioversion DISPOSITION To be determined Patient presents with significant deconditioning/respiratory failure PT OT -recommends patient will benefit patient rehab Multiple conversation with patient/ with case management social worker Has been insist patient should return home with home health and arrangements for home improvement contractor Not safe to return home as patient also have significant medical issues will continue to discuss with patient and family for safe discharge Vital Signs: Date Time Temp Pulse Resp B/P (MAP) Pulse Ox O2 Delivery O2 Flow Rate FiO2 11/16/17 08:34 99 Nasal Cannula 11/16/17 07:41 36.4 63 16 121/72 (88) 99 Nasal Cannula 2.0 11/16/17 00:00 Room Air 11/15/17 23:26 36.6 71 18 110/68 (82) 98 Nasal Cannula 2.0 11/15/17 16:41 96 Nasal Cannula 2.0 11/15/17 15:42 68 Lab Results: Results Past 24 Hours Test 11/15/17 16:36 11/15/17 19:50 11/16/17 07:43 11/16/17 11:31 Range/Units Bedside Glucose 155 205 107 184 70-90 mg/dl
[2017-11-15 23:26] VITALS: BP 110/68; PULSE 71; TEMP 36.6; O2SAT 98
[2017-11-16] MEDS: LEVOTHYROXINE 88 MCG TAB NG SCH (06:30)
[2017-11-16] MEDS: LANSOPRAZOLE SOLUTAB 30 MG NG SCH (07:37)
[2017-11-16] MEDS: APIXABAN 2.5 MG TAB PO SCH ×2 (07:37→20:09)
[2017-11-16] MEDS: LISINOPRIL 10 MG TAB PO SCH (07:38)
[2017-11-16] MEDS: FUROSEMIDE 20 MG TAB PO SCH (07:38)
[2017-11-16] MEDS: ATORVASTATIN 40 MG TAB NG SCH (07:38)
[2017-11-16] MEDS: METOPROLOL SUCC 50MG EXT REL TAB PO SCH (07:38)
[2017-11-16] MEDS: POTASSIUM CHLORIDE 20 MEQ TABCR PO SCH (07:39)
[2017-11-16] MEDS: DILTIAZEM HCL 120 MG CAPCR PO SCH (07:39)
[2017-11-16 07:41] VITALS: BP 121/72; PULSE 63; TEMP 36.4; O2SAT 99
[2017-11-16] MEDS: ASPIRIN 81 MG CHEW NG SCH (08:21)
[2017-11-16] MEDS: INSULIN ASPART 100 UNITS/ML 3 ML PEN SC SCH ×4 (08:24→20:10)
[2017-11-16 08:34] VITALS: O2SAT 99
[2017-11-16 15:23] VITALS: BP 121/67; PULSE 67; TEMP 36.4; O2SAT 94
[2017-11-16 16:00] VITALS: O2SAT 94
[2017-11-16] MEDS: DIGOXIN 0.125 MG TAB NG SCH (16:01)
[2017-11-16 16:07] VITALS: O2SAT 94
[2017-11-16] MEDS: LATANOPROST 0.005% OP SOLN 2.5 ML BTL OPB SCH (20:09)
--- NOTE | 2017-11-16 21:13 | Progress Note ---
Internal Med Progress Note Date of Service: Nov 16, 2017. Provider Documentation: SUBJECTIVE: pt sitting up on chair , comfortable no complain of SOB , has minimum cough needs max assist with 2 person to transfer from bed to chair Mr Aakash Vasquez present at bedside wants to pt to take home tomorrow " she is not getting any better sitting on chair -all day long " is updated that she is unable to sit up by herself , unable to do transfer required number of person to get her to chair from bed returning home in this state is unsafe has poor health on Live vest /LVAD -due to end stage CHF / Cardiomyopathy will not be safe for the or the pt to return home in this state chance of fall /Broken hip/limbs remains extremely high ( pt already has hx of broken hip due to fall in past ) not to mentions providing adequate care -feeding /bathing /changing -will be most difficult -pt remains in complete care completely dependent on Nursing stuff in our Hospital for ADL's Mr Vasquez remains adamant-that pt need to return home -she always does better at home able to get up and with help can get into bedside potty I updated that pt was not able to do any of the transfers while in hospital remains adamant requests [facility] transfer agency to contacted to arrange for transport to home tomorrow OBJECTIVE: Vital Signs-as noted below Exam: General- No acute distress, obese, baseline dementia ? no sign of distress Head- atraumatic Eyes- PERRL, EOMI ENT- oropharynx clear Neck- supple, no JVD Lungs- +wheezing, rales at bases Heart- irregular rhythm, +murmur Abdomen- normal bowel sounds, soft Extremities- No calf tenderness Neuro- dementia , very forgetful Follow commands, speech fluent, no focal neuro deficit Skin- warm & dry Lab data as noted below. ASSESSMENT & PLAN: ACUTE HYPOXEMIC RESPIRATORY FAILURE WITH HYPERCAPNIA: respiratory status improved Not requiring oxygen at rest Secondary to COPD exacerbation VBG on admission showed PCO2 70 and Ph 7.2 Required mechanical ventilation on admission Repeat CXR showed extensive left basilar consolidation with moderate left pleural effusion. Continue neb treatment and prednisone Blood cx no growth CT chest showed small left and trace right pleural effusions with dependent subsegmental bibasilar consolidative opacities favoring atelectasis. Probable bronchial mucous plugging noted within the left lung base. Speech on board and Video swallow suggest no aspiration pt remains in significant functional decline unable to transfer herself or change her position -with out assistance needs complete assistance multiple meeting with pt's with myself /Case management /change management -Updated that pt is at present complete care /unable to self transfer or assist any of her self care Insist getting patient to be discharged home NOT SAFE TO BE DISCHARGED BACK TO HOME CONTINUES TO INSIST TO HAVE PATIENTS TO RETURN HOME , PLAN TO TAKE CARE OF THE PATIENT BY HIMSELF CHRONIC DIASTOLIC CHF: stable BNP on admission normal Continue lasix 20mg daily Cardiology consulted, appreciate input ECHO showed * The left ventricle is grossly normal size. * Left ventricular systolic function is normal. * Ejection Fraction = 55-60%. * The right ventricular systolic function is normal. * Grossly normal valvular structure and function. -OVER ALL PT'S FUNCTIONAL STATUS REMAINS VERY POOR -NOT SAFE TO RETURN HOME PT/OT EVAL RECOMMENDED TO REHAB REFUSED REHAB PLACEMENT ATRIAL FIBRILLATION RVR Currently rate controlled Continue Digoxin, Diltiazem On Eliquis 5 mg BID as per cardio Plan to cardiovert in the future if pt remains on Afib ASCENDING THORACIC ANEURYSM CT chest showed cardiomegaly with fusiform aneurysmal dilation of the ascending thoracic aorta, 4.5 cm. Will need to monitor as an outpatient CKD STAGE 3 Stable HYPERGLYCEMIA Due to steroid Recent A1C 6.2 Insulin sliding scale Continue monitor H/O CVA: Continue ASA, statins stable baseline dementia HTN: Continue BP med CAROTID ARTERY DISEASE: Continue Statin and aspirin HYPOTHYROIDISM: TSH wnl Continue Levothyroxine DEMENTIA: Stable Not on any meds at home DVT Px: Eliquis Code Status Full No cardioversion DISPOSITION WITH SIGNIFICANT FUNCTIONAL DECLINE , NOT SAFE TO RETURN HOME WILL BENEFIT WITH SNF HIGH FALL RISK AND BLEEDING RISK -ON CHRONIC ANTICOAGULATION WITH ELIQUIS IS ELDERLY WITH SEVERE CARDIAC DISEASE RETURN PT HOME WITH 'S CARE WITH BY A SAFETY CONCERN FOR BOTH THE PT AND HER IS AGAINST REHAB PLACEMENT -PT BEEN TO MULTIPLE SKILLED REHAB IN PAST FEW MONTHS - HAD COMPLAINS AGAINST ALL THE FACILITIES WAS SENT [facility] WITH RESPIRATORY FAILURE -DOES NOT WANT TO PT TO RETURN BACK THERE WILL UPDATE CASE MANAGEMENT Vital Signs: Date Time Temp Pulse Resp B/P (MAP) Pulse Ox O2 Delivery O2 Flow Rate FiO2 11/17/17 08:30 94 Room Air 11/17/17 07:26 36.4 70 16 145/74 (97) 94 Room Air 11/17/17 00:05 Room Air 11/16/17 22:18 36.4 68 18 117/73 (88) 93 Nasal Cannula 11/16/17 16:07 94 Room Air 11/16/17 16:01 67 11/16/17 16:00 94 Room Air 11/16/17 15:23 36.4 67 20 121/67 (85) 94 Nasal Cannula 3.0 Lab Results: Results Past 24 Hours Test 11/16/17 16:25 11/16/17 19:47 11/17/17 07:38 Range/Units Bedside Glucose 155 208 96 70-90 mg/dl
[2017-11-16 22:18] VITALS: BP 117/73; PULSE 68; TEMP 36.4; O2SAT 93
[2017-11-17] MEDS: LEVOTHYROXINE 88 MCG TAB NG SCH (05:43)
[2017-11-17 07:26] VITALS: BP 145/74; PULSE 70; TEMP 36.4; O2SAT 94
[2017-11-17] MEDS: METOPROLOL SUCC 50MG EXT REL TAB PO SCH (07:56)
[2017-11-17] MEDS: LISINOPRIL 10 MG TAB PO SCH (07:57)
[2017-11-17] MEDS: FUROSEMIDE 20 MG TAB PO SCH (07:57)
[2017-11-17] MEDS: DILTIAZEM HCL 120 MG CAPCR PO SCH (07:57)
[2017-11-17] MEDS: APIXABAN 2.5 MG TAB PO SCH (07:57)
[2017-11-17] MEDS: LANSOPRAZOLE SOLUTAB 30 MG NG SCH (07:58)
[2017-11-17] MEDS: ATORVASTATIN 40 MG TAB NG SCH (07:58)
[2017-11-17] MEDS: POTASSIUM CHLORIDE 20 MEQ TABCR PO SCH (07:58)
[2017-11-17] MEDS: ASPIRIN 81 MG CHEW NG SCH (08:02)
[2017-11-17 08:30] VITALS: O2SAT 94
[2017-11-17] MEDS: INSULIN ASPART 100 UNITS/ML 3 ML PEN SC SCH ×2 (09:01→12:20)
[2017-11-17 13:02] VITALS: BP 145/74; PULSE 70; TEMP 36.4; O2SAT 94
[2017-11-17 13:42] VITALS: PULSE 64; O2SAT 94
--- NOTE | 2017-11-17 14:09 | Discharge Instructions ---
Discharge Instructions Date of Service Nov 17, 2017. Admission Reason for Admission: Change In Mental Status,Exacerbation Of Asthma Discharge Discharge Diagnosis / Problem: ACUTE RESPIRATORY CARE /SEVERE AMBULATORY DYSFUNCTION /DEMENTIA Discharge Goals Goal(s): Increase independence, Improve disease control, Diagnostic testing, Therapeutic intervention Activity Recommendations Activity Limitations: as noted below ( TOLERATED /PATIENT REMAINS HIGH FALL RISK /NEEDS COMPLETE ASSIT FOR TRANSFER ) . Instructions / Follow-Up Instructions / Follow-Up HOSPITAL FOLLOW UP WITH : DR BRE ZHANG AT [facility] ON FridayNOVEMBER 20 @ 11:40 AM PLEASE NOTIFY FAMILY PHYSICIAN IN ANY EPISODE OF FALL /BLEEDING DUE TO FALL / SHORTNESS OF BREATH OR INCREASED CONFUSION ROSLYN REMAINS IN HIGH FALL RISK /WHILE ON BEING ON ELIQUIS -FALL CAN LEAD TO LIFE THREATENING BLEEDING PHYSICAL THERAPY /OCCUPATIONAL THERAPY EVALUATION AT [facility] STRONGLY RECOMMENDED REHAB /NOT SAFE TO RETURN HOME MR RODRIGUEZ UPDATED MULTIPLE TIMES BY PHYSICIAN /OCULAR CARE AIDE / CASE MANAGEMENT -THE HEALTH RISK OF PATIENT RETURNING HOME/AND COUNSELLED TO CONSIDER SKILLED REHAB MR RODRIGUEZ AND ROSLYN BOTH DECLINED THE OFFER , WANTED TO RETURN HOME WITH HOME HEALTH VISITING NURSE AND HOME PHYSICAL THERAPY -AWARE OF THE RISK FOR FALL /DECLINE IN HEALTH WITH THIS DECISION Current Hospital Diet Patient's current hospital diet: AHA Diet (Heart Healthy), Diabetes Type 2 Diet Discharge Diet Recommended Diet: AHA Diet (Heart Healthy), Diabetes Type 2 Diet Pending Studies Studies pending at discharge: no Laboratory Results Hemoglobin A1c Test 11/05/17 04:03 Range/Units Estimated Average Glucose 131 mg/dl Hemoglobin A1c 6.2 H 4.5-5.6 % Medical Emergencies . Who to Call and When: Medical Emergencies: If at any time you feel your situation is an emergency, please call 911 immediately. . Non-Emergent Contact Non-Emergency issues call your: Primary Care Provider Call Non-Emergent contact if: you have a fever ANY EVENT OF FALL /BLEEDING DUE TO FALL /SHORTNESS OF BREATH /WORSENING OF COUGH . . "Provider Documentation" section prepared by Imani Bobby. .
--- NOTE | 2017-11-17 14:58 | Discharge Summary ---
Discharge Summary Date of Service Nov 17, 2017. Discharge Summary Admission Date: Nov 05, 2017 at 01:00 Discharge Date: Nov 17, 2017 Discharge Disposition: Home with services Principal Diagnosis: ACUTE RESPIRATORY CARE /SEVERE AMBULATORY DYSFUNCTION /DEMENTIA Procedures: Mechanical ventilation Consultations: PULMONOLOGY CARDIOLOGY MANAGER OF ORGANIZATIONAL DEVELOPMENT ENT Medication Reconciliation New Medications: Apixaban (Eliquis) 2.5 Mg Tab 5 MG PO BID for 30 Days, #120 TAB Continued Medications: Acetaminophen (Tylenol) 500 Mg Tab 1 TAB PO Q4 PRN for Pain or Fever for 3 Days, #10 TAB Albuterol Sulf (Proventil 0.083% 2.5MG/3ML) 2.5 Mg/3 Ml Nebu 2.5 MG INH QID PRN for SOB/Wheezing, EA Albuterol Sulfate (Proair Respiclick) 108 Mcg/Act Aer 2 PUFFS INH QID PRN for SOB/Wheezing Aspirin (Aspirin Ec) 81 Mg Tab 81 MG PO DAILY Atorvastatin (Lipitor) 40 Mg Tab 40 MG PO DAILY Digoxin (Digoxin) 0.125 Mg Tab 0.125 MG PO DAILY Diltiazem Hcl Ext Rel (Tiazac) 120 Mg Capcr 120 MG PO DAILY, CAP Docusate Sodium (Docusate Sodium) 100 Mg Tab 100 MG PO BID PRN for constipation Furosemide (Lasix) 20 Mg Tab 20 MG PO DAILY, TAB Ipratropium Christine (Ipratropium Christine) 0.5 Mg/2.5 Ml Nebu 1 VIAL NEB Q4 for 30 Days, #300 ML 3 Refills Latanoprost (Latanoprost) 37 Drops/2.5 Ml Soln 1 DROP OPB HS Levothyroxine Sodium (Levothyroxine Sodium) 88 Mcg Tab 88 MCG PO DAILY for 90 Days, #90 TAB 3 Refills Lisinopril (Lisinopril) 10 Mg Tab 10 MG PO DAILY Magnesium Hydroxide (Milk Of Magnesia) 30 Ml Susp 30 ML PO DAILY PRN for constipation, ML Methylprednisolone (Medrol) 4 Mg Tab 16 MG PO DIRECTED, TAB 16 mg on 11/06/17 at 1700, take 12mg on 11/07 1700 , takes 8mg on 11/08 at 1700, takes 24mg on 11/04 at 1700, takes 20mg on 11/05 at 1700, takes 4mg on 11/09 at 1700 Metoprolol Succinate (Metoprolol Succinate ER) 50 Mg Tabcr 50 MG PO DAILY Oxybutynin Chloride (Oxybutynin Chloride Er) 5 Mg Tab 5 MG PO DAILY for 90 Days, #90 TAB 3 Refills Pantoprazole (Protonix) 40 Mg Tab 40 MG PO DAILY, #30 TAB Potassium Ext Rel (Klor-Con) 20 Meq Tabcr 20 MEQ PO DAILY, TAB Discontinued Medications: Levofloxacin (Levofloxacin) 250 Mg Tab 250 MG PO DAILY to start at 0600 on 11/05/17 Admission Information HPI (per Admitting provider): Patient is an 87-year-old female with past medical history of CHF, atrial fibrillation, asthma, CVA, hypertension, carotid artery disease, hypothyroidism , dementia and other problems presents from [facility] with worsening shortness of breath and cough since yesterday. Patient is somnolent and could not provide any history. Most of the history is obtained from the ER physician medical records and from the patient's daughter. Patient was recently discharged from [facility] after being treated for acute CHF exacerbation and atrial fibrillation. As per the staff patient has been increasingly short of breath since yesterday and patient has been treated with Solu-Medrol and was started on steroid taper and oxygen. Patient was also noted to have increased in weight of about 3 pounds and her lasix was increased from 20mg daily to BID today. Patient was put on BiPAP on arrival to ED and was found to have CO2 of 70. Patient has been very somnolent and unarousable during my examination in the ED. chest x-ray showed cardiomegaly without any acute process. Physical Exam (per Admitting): General Appearance: WD/WN, no apparent distress, + pertinent finding ( Somnolent, unarousable) Head: normocephalic, atraumatic Eyes: normal inspection, PERRL, EOMI, sclerae normal ENT: normal ENT inspection Neck: supple, trachea midline Respiratory/Chest: chest non-tender, normal breath sounds, no respiratory distress, no accessory muscle use, + wheezing Cardiovascular: no murmur, + tachycardia, + irregularly irregular, + pertinent finding (1+ b/l edema, Pacemaker on left side of chest) Abdomen/GI: normal bowel sounds, non tender, soft Back: normal inspection Extremities/Musculoskelatal: normal inspection, + pedal edema (1+ b/l) Neurologic/Psych: + pertinent finding (Somnolent, unarousable. Complete neuro exam could not be performed) Skin: normal color, warm/dry Hospital Course ACUTE HYPOXEMIC RESPIRATORY FAILURE WITH HYPERCAPNIA: respiratory status improved Not requiring oxygen at rest Will not need home O2 Secondary to COPD exacerbation VBG on admission showed PCO2 70 and Ph 7.2 Required mechanical ventilation on admission Repeat CXR showed extensive left basilar consolidation with moderate left pleural effusion. Continue neb treatment and prednisone Blood cx no growth CT chest showed small left and trace right pleural effusions with dependent subsegmental bibasilar consolidative opacities favoring atelectasis. Probable bronchial mucous plugging noted within the left lung base. Speech on board and Video swallow suggest no aspiration pt remains in significant functional decline unable to transfer herself or change her position -with out assistance needs complete assistance multiple meeting with pt's with myself /Case management /folder seamer -Updated that pt is at present complete care /unable to self transfer or assist any of her self care Insist getting patient to be discharged home NOT SAFE TO BE DISCHARGED BACK TO HOME CONTINUES TO INSIST TO HAVE PATIENTS TO RETURN HOME , PLAN TO TAKE CARE OF THE PATIENT BY HIMSELF patient needed to aids assistance to clean her for bowel movement Needed complete assistance for dressing change was present during that time Insisted that patient will be discharged home with greater than He will be able to sit patient up and have her walking "weight weight weight with work and within 2 days" IS COUNSELLED AGAIN does not want to listen pt is discharged home via [facility] van referral made for home health CHRONIC DIASTOLIC CHF: stable BNP on admission normal Continue lasix 20mg daily Cardiology consulted, appreciate input ECHO showed * The left ventricle is grossly normal size. * Left ventricular systolic function is normal. * Ejection Fraction = 55-60%. * The right ventricular systolic function is normal. * Grossly normal valvular structure and function. -OVER ALL PT'S FUNCTIONAL STATUS REMAINS VERY POOR -NOT SAFE TO RETURN HOME PT/OT EVAL RECOMMENDED TO REHAB REFUSED REHAB PLACEMENT ATRIAL FIBRILLATION RVR Currently rate controlled Continue Digoxin, Diltiazem On Eliquis 5 mg BID as per cardio Plan to cardiovert in the future if pt remains on Afib UPDATED OVER AND OVER AGAIN RISK FOR FALL AND FATAL BLEEDING WHILE ON ELIQUIS AWARE STILL INSISTS ON TAKING PT HOME ASCENDING THORACIC ANEURYSM CT chest showed cardiomegaly with fusiform aneurysmal dilation of the ascending thoracic aorta, 4.5 cm. Will need to monitor as an outpatient CKD STAGE 3 Stable HYPERGLYCEMIA Due to steroid Recent A1C 6.2 Insulin sliding scale Continue monitor H/O CVA: Continue ASA, statins stable baseline dementia HTN: Continue BP med CAROTID ARTERY DISEASE: Continue Statin and aspirin HYPOTHYROIDISM: TSH wnl Continue Levothyroxine DEMENTIA: Stable Not on any meds at home DVT Px: Eliquis Code Status Full No cardioversion DISPOSITION WITH SIGNIFICANT FUNCTIONAL DECLINE , NOT SAFE TO RETURN HOME WILL BENEFIT WITH SNF HIGH FALL RISK AND BLEEDING RISK -ON CHRONIC ANTICOAGULATION WITH ELIQUIS IS ELDERLY WITH SEVERE CARDIAC DISEASE RETURN PT HOME WITH 'S CARE WITH BY A SAFETY CONCERN FOR BOTH THE PT AND HER IS AGAINST REHAB PLACEMENT -PT BEEN TO MULTIPLE SKILLED REHAB IN PAST FEW MONTHS - HAD COMPLAINS AGAINST ALL THE FACILITIES WAS SENT [facility] WITH RESPIRATORY FAILURE -DOES NOT WANT TO PT TO RETURN BACK THERE PT IS DISCHARGED HOME WITH [facility] Total time spent on discharge = 40 MINS This includes examination of the patient, discharge planning, medication reconciliation, and communication with other providers. Discharge Instructions Discharge Instructions Date of Service Nov 17, 2017. Admission Reason for Admission: Change In Mental Status,Exacerbation Of Asthma Discharge Discharge Diagnosis / Problem: ACUTE RESPIRATORY CARE /SEVERE AMBULATORY DYSFUNCTION /DEMENTIA Discharge Goals Goal(s): Increase independence, Improve disease control, Diagnostic testing, Therapeutic intervention Activity Recommendations Activity Limitations: as noted below ( TOLERATED /PATIENT REMAINS HIGH FALL RISK /NEEDS COMPLETE ASSIT FOR TRANSFER ) . Instructions / Follow-Up Instructions / Follow-Up HOSPITAL FOLLOW UP WITH : DR BRE ZHANG AT [facility] ON FridayNOVEMBER 20 @ 11:40 AM PLEASE NOTIFY FAMILY PHYSICIAN IN ANY EPISODE OF FALL /BLEEDING DUE TO FALL / SHORTNESS OF BREATH OR INCREASED CONFUSION ROSLYN REMAINS IN HIGH FALL RISK /WHILE ON BEING ON ELIQUIS -FALL CAN LEAD TO LIFE THREATENING BLEEDING PHYSICAL THERAPY /OCCUPATIONAL THERAPY EVALUATION AT [facility] STRONGLY RECOMMENDED REHAB /NOT SAFE TO RETURN HOME MR RODRIGUEZ UPDATED MULTIPLE TIMES BY PHYSICIAN /STEWARD/STEWARDESS / CASE MANAGEMENT -THE HEALTH RISK OF PATIENT RETURNING HOME/AND COUNSELLED TO CONSIDER SKILLED REHAB MR RODRIGUEZ AND ROSLYN BOTH DECLINED THE OFFER , WANTED TO RETURN HOME WITH HOME HEALTH VISITING NURSE AND HOME PHYSICAL THERAPY -AWARE OF THE RISK FOR FALL /DECLINE IN HEALTH WITH THIS DECISION Current Hospital Diet Patient's current hospital diet: AHA Diet (Heart Healthy), Diabetes Type 2 Diet Discharge Diet Recommended Diet: AHA Diet (Heart Healthy), Diabetes Type 2 Diet Pending Studies Studies pending at discharge: no Laboratory Results Hemoglobin A1c Test 11/05/17 04:03 Range/Units Estimated Average Glucose 131 mg/dl Hemoglobin A1c 6.2 H 4.5-5.6 % Medical Emergencies . Who to Call and When: Medical Emergencies: If at any time you feel your situation is an emergency, please call 911 immediately. . Non-Emergent Contact Non-Emergency issues call your: Primary Care Provider Call Non-Emergent contact if: you have a fever ANY EVENT OF FALL /BLEEDING DUE TO FALL /SHORTNESS OF BREATH /WORSENING OF COUGH . . "Provider Documentation" section prepared by Imani Bobby. .
== END 2017-11-17 17:14 | disposition home or self-care (01) | DRG 208 ==
LOC: EDBD 21:27 → C.EDB 21:29 → C.MSICU 11-05 01:00 → ENRESERV 11-05 01:16 → C.2T 11-06 09:42 → ENRESERV 11-11 14:51 → C.4E 11-11 15:30
PROVIDERS: ADMIT Internal Medicine; ATTEND Hospitalist
PROC: 5A1935Z Respiratory Ventilation, Less than 24 Consecutive Hours (ICD-10-PCS; principal; 2017-11-05)
DX: J96.02 Acute respiratory failure with hypercapnia (principal); G93.41 Metabolic encephalopathy; J45.901 Unspecified asthma with (acute) exacerbation; I50.32 Chronic diastolic (congestive) heart failure; I13.0 Hypertensive heart and chronic kidney disease with heart failure and stage 1 through stage 4 chronic kidney disease, or unspecified chronic kidney disease; T38.0X5A Adverse effect of glucocorticoids and synthetic analogues, initial encounter; I48.91 Unspecified atrial fibrillation; N18.3 Chronic kidney disease, stage 3 (moderate); I77.9 Disorder of arteries and arterioles, unspecified; E03.9 Hypothyroidism, unspecified; F03.90 Unspecified dementia, unspecified severity, without behavioral disturbance, psychotic disturbance, mood disturbance, and anxiety; R73.02 Impaired glucose tolerance (oral); Z79.82 Long term (current) use of aspirin; Z82.49 Family history of ischemic heart disease and other diseases of the circulatory system; Z86.73 Personal history of transient ischemic attack (TIA), and cerebral infarction without residual deficits; Z83.3 Family history of diabetes mellitus

== ENCOUNTER 2017-12-15 10:40 | Inpatient (IN) | payer OTHER ==
[~2017-12-15] VITALS: Ht 167.6 cm; Wt 99.2 kg
[~2017-12-15 10:40] MED LIST changes: -ACET-1693 PO; -BISA10SU3 PR; -FURO10IN2 IM; -LEVO100T7 PO; -LEVO500T19 PO; -SODI1ENE RE; -[UNRECOGNIZED DRUG - CODE] IM
[2017-12-15] MEDS ORDERED: METHYLPREDNISOLONE 125 MG VIAL IV STA (11:00)
[2017-12-15] MEDS ORDERED: ALBUT/IPRATROP 3MG/0.5MG NEB 3 ML VIAL INH ONE (11:00)
--- NOTE | 2017-12-15 11:15 | EMERGENCY ROOM VISIT NOTE ---
History Report prepared by Venus: Moise Rosado Under the Supervision of: Dr. Jaime Tesfaye M.D. First contact with patient: 10:57 Chief Complaint: RESPIRATORY PROBLEMS Stated Complaint: RESPIRATORY Nursing Triage Summary: Pt presents from [facility] via ALS. She was difficult to arous this AM, and per staff has been refusing medications for the past couple of days. CXR performed at facility which showed PNX, sent here for further eval. Per ALS, staff at [facility] noted pts O2 sats to be in the 80's, pt has O2 ordered but was not wearing it at the time. En route, ALS states pts O2 sats remained in the mid-high 90's on room air. Upon arrival pt is A&Ox3, denies any dyspnea, CP, or difficulty breathing. States "I don't know why they didn't just treat me there instead of sending me up here". O2 sats upon arrival on R/A, 96%. History of Present Illness The patient is an 87 year old female who presents to the Emergency Room with complaints of persistent respiratory problems starting this morning. The patient currently has pneumonia, though she feels like she has not been more sick recently. She denies any shortness of breath and abdominal pain, and she states that she is not usually on oxygen. Per the nursing staff, the patient had low oxygen this morning and was difficult to arouse. Source of History: patient, nursing staff Onset: this morning Position: other (generalized) Quality: other (respiratory problems) Timing: other (persistent) Associated Symptoms: No SOB, No abdominal pain Note: Associated symptoms: low oxygen and difficult to arouse. Review of Systems See HPI for pertinent positives and negatives. A total of ten systems were reviewed and were otherwise negative. Past Medical & Surgical Medical Problems: (1) Atrial fibrillation (2) Carotid artery disease (3) Cerebrovascular disease (4) COPD (chronic obstructive pulmonary disease) (5) Dementia (6) Diastolic CHF (7) Hypertension (8) Hypothyroidism (9) Knee Joint Replacement Status (10) Symptomatic bradycardia (11) Urinary incontinence Surgical Problems: (1) S/P placement of cardiac pacemaker Family History Cancer Diabetes mellitus Heart disease Social History Smoking Status: Never Smoker Drug Use: none Marital Status: Housing Status: lives with family Occupation Status: retired Current/Historical Medications Scheduled Apixaban (Eliquis), 2.5 MG PO BID Atorvastatin (Lipitor), 40 MG PO DAILY Dexamethasone Sod Phos (Dexamethasone Sodium Phos), 40 MG IM BID Diltiazem Hcl Ext Rel (Tiazac), 120 MG PO DAILY Furosemide (Lasix), 20 MG PO DAILY Furosemide (Furosemide), 40 MG IM DAILY Latanoprost (Latanoprost), 1 DROP OPB HS Levofloxacin (Levaquin), 1 TAB PO DAILY Levothyroxine Sodium (Levothyroxine Sodium), 1 TAB PO DAILY Oxybutynin Chloride (Oxybutynin Chloride Er), 10 MG PO DAILY Potassium Ext Rel (Klor-Con), 20 MEQ PO DAILY Scheduled PRN Acetaminophen Tab (Tylenol), 650 MG PO Q6H PRN for Pain Albuterol Sulf (Proventil 0.083% 2.5MG/3ML), 2.5 MG INH Q4H PRN for SOB/Wheezing Bisacodyl (Dulcolax), 1 SUPP [place] DAILY PRN for Constipation Magnesium Hydroxide (Milk Of Magnesia), 30 ML PO DAILY PRN for constipation Sodium Phosphates (Fleet Enema Six Pack), 1 DOSE RE DAILY PRN for Constipation Allergies Coded Allergies: Penicillins (Verified Allergy, Unknown, RXN TO AMOXICILLIN, 12/15/17) Adhesives (Verified Adverse Reaction, Mild, RXN TO TAPE, 12/15/17) Physical Exam Vital Signs Date Time Temp Pulse Resp B/P (MAP) Pulse Ox O2 Delivery O2 Flow Rate FiO2 12/15/17 15:39 116 16 127/83 93 Nasal Cannula 2.0 12/15/17 13:47 96 16 92 Nasal Cannula 2.0 12/15/17 13:38 115 12/15/17 12:21 103 20 133/68 93 Nasal Cannula 2.0 12/15/17 12:18 96 Nasal Cannula 2.0 12/15/17 11:39 84 20 96 Room Air 12/15/17 10:55 95 12/15/17 10:55 97 Nasal Cannula 2.0 12/15/17 10:51 36.4 91 20 104/73 96 Room Air 12/15/17 10:51 96 Room Air Physical Exam GENERAL: Awake, alert, chronically ill-appearing, mildly dyspneic, in no acute distress HENT: Normocephalic, atraumatic. Dry mucous membranes otherwise oropharynx unremarkable. EYES: Normal conjunctiva. Sclera non-icteric. NECK: Supple. No nuchal rigidity. FROM. No JVD. RESPIRATORY: Diminished breath sounds with scattered wheezes and rhonchi throughout. CARDIAC: IRIR. Extremities warm and well perfused. Pulses equal. ABDOMEN: Soft, non-distended. No tenderness to palpation. No rebound or guarding. No masses. RECTAL: Deferred. MUSCULOSKELETAL: Chest examination reveals no tenderness. The back is symmetrical on inspection without obvious abnormality. There is no CVA tenderness to palpation. No joint edema. LOWER EXTREMITIES: 1+ Lower extremity edema. Calves are equal size bilaterally and non-tender. No discoloration. NEURO: Normal sensorium. No sensory or motor deficits noted. SKIN: No rash or jaundice noted. Medical Decision & Procedures ER Provider Diagnostic Interpretation: Radiology results as stated below per my review and radiologist interpretation: SINGLE VIEW CHEST CLINICAL HISTORY: Dyspnea. FINDINGS: An AP, portable, upright chest radiograph is compared to study dated 11/06/2017 and correlated with chest CT dated 11/07/2017. The examination is degraded by portable technique and apical lordotic positioning. A 2-lead cardiac pacemaker is unchanged in position and partially obscures the left upper chest. The heart is enlarged and there is atherosclerotic calcification of the thoracic aorta. The pulmonary vasculature is noncongested. Chronic interstitial thickening is similar to previous. There is a left pleural effusion with left basilar consolidation.. No pneumothorax is seen. The skeletal structures are osteopenic. The bony thorax is grossly intact. IMPRESSION: 1. Cardiomegaly and cardiac pacemaker. There is no radiographic evidence of congestive failure. 2. There is a small left pleural effusion with left basilar consolidation. This likely represents atelectasis and the diffusion has decreased in size from the 11/07/2017 CT scan. Clinical correlation will be required. Electronically signed by: Nicolás Ochoa M.D. 12/15/2017 2:42 PM Dictated Date/Time: 12/15/2017 2:40 PM Laboratory Results 12/15/17 14:21 Red Blood Count 3.86, Mean Corpuscular Volume 94.0, Mean Corpuscular Hemoglobin 31.1, Mean Corpuscular Hemoglobin Concent 33.1, Mean Platelet Volume 8.2, Neutrophils (%) (Auto) 89.0, Lymphocytes (%) (Auto) 7.1, Monocytes (%) (Auto) 3.7, Eosinophils (%) (Auto) 0.0, Basophils (%) (Auto) 0.0, Neutrophils # (Auto) 4.54, Lymphocytes # (Auto) 0.36, Monocytes # (Auto) 0.19, Eosinophils # (Auto) 0.00, Basophils # (Auto) 0.00 12/15/17 14:21 Test 12/15/17 14:21 12/15/17 15:10 White Blood Count 5.10 K/uL (4.8-10.8) Red Blood Count 3.86 M/uL (4.2-5.4) Hemoglobin 12.0 g/dL (12.0-16.0) Hematocrit 36.3 % (37-47) Mean Corpuscular Volume 94.0 fL (80-100) Mean Corpuscular Hemoglobin 31.1 pg (25-34) Mean Corpuscular Hemoglobin Concent 33.1 g/dl (32-36) Platelet Count 358 K/uL (130-400) Mean Platelet Volume 8.2 fL (7.4-10.4) Neutrophils (%) (Auto) 89.0 % Lymphocytes (%) (Auto) 7.1 % Monocytes (%) (Auto) 3.7 % Eosinophils (%) (Auto) 0.0 % Basophils (%) (Auto) 0.0 % Neutrophils # (Auto) 4.54 K/uL (1.4-6.5) Lymphocytes # (Auto) 0.36 K/uL (1.2-3.4) Monocytes # (Auto) 0.19 K/uL (0.11-0.59) Eosinophils # (Auto) 0.00 K/uL (0-0.5) Basophils # (Auto) 0.00 K/uL (0-0.2) RDW Standard Deviation 50.7 fL (36.4-46.3) RDW Coefficient of Variation 14.9 % (11.5-14.5) Immature Granulocyte % (Auto) 0.2 % Immature Granulocyte # (Auto) 0.01 K/uL (0.00-0.02) Prothrombin Time 10.2 SECONDS (9.0-12.0) Prothromb Time International Ratio 1.0 (0.9-1.1) Venous Blood pH 7.35 (7.36-7.41) Venous Blood Partial Pressure CO2 57 mmHg (38.0-50.0) Venous Blood Partial Pressure O2 33 mmHg Venous Blood HCO3 31 mmol/L Venous Blood Oxygen Saturation < 60.0 % Venous Blood Base Excess 4.0 mEq/L Anion Gap 7.0 mmol/L (3-11) Est Creatinine Clear Calc Drug Dose 42.1 ml/min Estimated GFR () 48.7 Estimated GFR (Non- 42.0 BUN/Creatinine Ratio 12.4 (10-20) Lactic Acid Level 4.6 mmol/L (0.4-2.0) Calcium Level 9.1 mg/dl (8.5-10.1) Magnesium Level 2.0 mg/dl (1.8-2.4) Total Bilirubin 0.4 mg/dl (0.2-1) Direct Bilirubin 0.1 mg/dl (0-0.2) Aspartate Amino Transf (AST/SGOT) 15 U/L (15-37) Alanine Aminotransferase (ALT/SGPT) 20 U/L (12-78) Alkaline Phosphatase 89 U/L (45-117) Troponin I < 0.015 ng/ml (0-0.045) Pro-B-Type Natriuretic Peptide 2004 pg/ml (0-1800) Total Protein 6.8 gm/dl (6.4-8.2) Albumin 2.8 gm/dl (3.4-5.0) Lipase 62 U/L (73-393) Digoxin Level 0.3 ng/ml (0.8-2.0) Urine Color YELLOW Urine Appearance CLEAR (CLEAR) Urine pH 5.5 (4.5-7.5) Urine Specific [place] 1.012 (1.000-1.030) Urine Protein NEG (NEG) Urine Glucose (UA) NEG (NEG) Urine Ketones NEG (NEG) Urine Occult Blood NEG (NEG) Urine Nitrite NEG (NEG) Urine Bilirubin NEG (NEG) Urine Urobilinogen NEG (NEG) Urine Leukocyte Esterase NEG (NEG) Urine WBC (Auto) 0 /hpf (0-5) Urine RBC (Auto) 0-4 /hpf (0-4) Urine Hyaline Casts (Auto) 0 /lpf (0-5) Urine Epithelial Cells (Auto) 0-5 /lpf (0-5) Urine Bacteria (Auto) NEG (NEG) Laboratory results reviewed by pr Medications Administered Medications (Trade) Dose Ordered Sig/Mak Route Start Time Stop Time Status Last Admin Dose Admin Albuterol/ Ipratropium (Duoneb) 12 ml ONE ONCE INH 12/15/17 11:00 12/15/17 11:07 DC 12/15/17 11:38 12 ML ECG Per My Interpretation Indication: SOB/dyspnea Rate (beats per minute): 102 Rhythm: atrial fibrillation (with RVR) Findings: LBBB, no acute ischemic change, left axis deviation Comparison ECG Date: 11/04/17 Change: no significant change ED Course 1057: The patient was evaluated in room C3. A complete history and physical exam was performed. 1300: I reevaluated the patient, and I discussed the treatment plan with her. 1602: I had an extensive discussion about the disposition decision and the goals of care with the patient's daughter. 1633: I reevaluated the patient, and I discussed the treatment plan with her and her daughter. She will be evaluated for further management. 1642: I discussed the patient with Shalonda Hager - she will evaluate the patient for further treatment. Medical Decision I reviewed the patient's past medical history, medications, and the nursing notes as described above. Differential diagnosis: Etiologies such as infections, reactive airway disease, pneumonia, pneumothorax , COPD, CHF, cardiac ischemia, pulmonary embolism, musculoskeletal, gastrointestinal, as well as others were entertained. The patient is a 87-year-old woman with a past medical history of dementia, CHF , COPD, CKD who presents to the emergency department being unresponsive at [facility] with checks x-ray obtained showing left lower lobe pneumonia per hpi. Of note, the patient has a complex recent social history with temporary guardianship by [employer] because her appeared to have been making inappropriate medical decisions for the patient. The patient was initially refusing her evaluation including blood draw and chest x-ray. Eventually were able to get the patient to cooperate and labs were drawn chest x-ray performed. On arrival the patient is chronically ill-appearing, dyspneic but in no acute distress, afebrile stable vital signs. On exam the patient is diminished throughout with scattered wheezes and rhonchi. Chest x-ray demonstrate left basilar consolidation although with pleural effusion which appears improved from prior CT scan. No evidence of failure. BNP only 2000s. WBC within normal limits. Lactate however elevated to 4.5. Findings were discussed with the patient and her daughter at the bedside. Patient continued to be frustrated with difficulty to reason with, given her underlying dementia and was saying that she did not want to be admitted. I were explained to the patient and the daughter that given the patient's pneumonia and worsening respiratory status in the setting of the patient's elevated lactate it is reasonable to admit the patient for IV antibiotics and continued trending of her lactate until cleared. Ultimately the daughter was agreeable for admission here and so was the patient. Case was discussed with Alley Cazares, who will evaluate the patient for admission. Medication Reconcilliation Current Medication List: was personally reviewed by me Blood Pressure Screening Patient's blood pressure: Elevated blood pressure Monitored by the hospitalist Consults Time Called: 1633 Consulting Physician: Shalonda Hager Returned Call: 1642 I discussed the patient with Shalonda Hager - she will evaluate the patient for further treatment. Impression Primary Impression: Pneumonia Scribe Attestation The scribe's documentation has been prepared under my direction and personally reviewed by me in its entirety. I confirm that the note above accurately reflects all work, treatment, procedures, and medical decision making performed by me. Departure Information Dispostion Being Evaluated By Hospitalist Prescriptions Apixaban (ELIQUIS) 2.5 Mg Tab 2.5 MG PO BID for 30 Days, #60 TAB Prov: Shalonda Mckenzie .[place] 12/15/17 Referrals Federico [place] (PCP) Patient Instructions My [facility]
[2017-12-15 11:39] VITALS: PULSE 84; O2SAT 96
[2017-12-15 14:37] LABS: HEMATOCRIT 36.3 % (37-47); IG# 0.01 K/uL (0.00-0.02); LYMPH % 7.1 %; LYMPH ABS # 0.36 K/uL (1.2-3.4); MEAN CORPUSCULAR HEMOGLOBIN 31.1 pg (25-34); MEAN CORPUSCULAR HGB CONC 33.1 g/dl (32-36); MEAN PLATELET VOLUME 8.2 fL (7.4-10.4); MONO % 3.7 %; MONO ABS # 0.19 K/uL (0.11-0.59); NEUT ABS # 4.54 K/uL (1.4-6.5); PLATELET COUNT 358 K/uL (130-400); RED CELL DISTRIBUTION WIDTH CV 14.9 % (11.5-14.5); RED CELL DISTRIBUTION WIDTH SD 50.7 fL (36.4-46.3)
--- NOTE | 2017-12-15 14:43 | DIAGNOSTIC IMAGING REPORT ---
SINGLE VIEW CHEST CLINICAL HISTORY: Dyspnea. FINDINGS: An AP, portable, upright chest radiograph is compared to study dated 11/06/2017 and correlated with chest CT dated 11/07/2017. The examination is degraded by portable technique and apical lordotic positioning. A 2-lead cardiac pacemaker is unchanged in position and partially obscures the left upper chest. The heart is enlarged and there is atherosclerotic calcification of the thoracic aorta. The pulmonary vasculature is noncongested. Chronic interstitial thickening is similar to previous. There is a left pleural effusion with left basilar consolidation.. No pneumothorax is seen. The skeletal structures are osteopenic. The bony thorax is grossly intact. IMPRESSION: 1. Cardiomegaly and cardiac pacemaker. There is no radiographic evidence of congestive failure. 2. There is a small left pleural effusion with left basilar consolidation. This likely represents atelectasis and the diffusion has decreased in size from the 11/07/2017 CT scan. Clinical correlation will be required. Electronically signed by: Nicolás Ochoa M.D. 12/15/2017 2:42 PM Dictated Date/Time: 12/15/2017 2:40 PM
[2017-12-15 15:02] LABS: ALBUMIN 2.8 gm/dl (3.4-5.0); ALKALINE PHOSPHATASE 89 U/L (45-117); ALT/SGPT 20 U/L (12-78); AST/SGOT 15 U/L (15-37); BLOOD UREA NITROGEN 15 mg/dl (7-18); CALCIUM 9.1 mg/dl (8.5-10.1); CARBON DIOXIDE 30 mmol/L (21-32); CREATININE 1.18 mg/dl (0.60-1.20); GLUCOSE 151 mg/dl (70-99); LIPASE 62 U/L (73-393); POTASSIUM 4.5 mmol/L (3.5-5.1); SODIUM 134 mmol/L (136-145); TOTAL PROTEIN 6.8 gm/dl (6.4-8.2)
[2017-12-15] MEDS ORDERED: VANCOMYCIN IV 2,000 MG in SODIUM CHLORIDE 0.9% 500ML 500 ML IV STA (16:35)
[2017-12-15] MEDS ORDERED: PIPERACILLIN/TAZOBACTAM 4.5 GM/100ML D5W IV STA (16:35)
[2017-12-15] MEDS ORDERED: SODIUM CHLORIDE 0.9% 500ML 500 ML IV STA (16:35)
[2017-12-15] MEDS ORDERED: VANCOMYCIN CONSULT ACTIVE PRN (16:45)
[2017-12-15] MEDS ORDERED: METHYLPREDNISOLONE 125 MG VIAL ONE (16:59)
[2017-12-15] MEDS ORDERED: ACETAMINOPHEN 325 MG TAB PO PRN (17:15)
[2017-12-15] MEDS ORDERED: PROMETHAZINE HCL INJ 12.5 MG in SODIUM CHLORIDE 0.9% 50ML 50 ML IV PRN (17:15)
[2017-12-15] MEDS ORDERED: CONSULT PHARMACY STA ×2 (17:21→17:52)
[2017-12-15] MEDS ORDERED: [UNRECOGNIZED DRUG - CODE] IM (17:46)
[2017-12-15] MEDS ORDERED: ELQ25 PO (17:46)
[2017-12-15] MEDS ORDERED: ACET-1693 PO (17:46)
[2017-12-15] MEDS ORDERED: SODI1ENE RE (17:46)
[2017-12-15] MEDS ORDERED: BISA10SU3 PR (17:46)
[2017-12-15] MEDS ORDERED: LEVO500T19 PO (17:46)
[2017-12-15] MEDS ORDERED: FURO10IN2 IM (17:46)
[2017-12-15] MEDS ORDERED: LEVO100T7 PO (17:46)
[2017-12-15] MEDS ORDERED: SOD PHOSPHATE/SOD BIPHOSPHATE ENEMA 132 ML BTL PR PRN (18:00)
[2017-12-15] MEDS ORDERED: BISACODYL 10 MG SUPP PR PRN (18:00)
[2017-12-15] MEDS ORDERED: MAGNESIUM HYDROXIDE SUSP 30 ML UDC PO PRN (18:00)
[2017-12-15] MEDS ORDERED: IMIPENEM/CILASTATIN CONSULT ACTIVE PRN (19:00)
[2017-12-15] MEDS ORDERED: DOXYCYCLINE HYCLATE 100 MG CAP PO SCH (19:00)
--- NOTE | 2017-12-15 19:46 | History and Physical ---
History & Physical Date & Time of Service: December 15, 2017 ~ 17:20 Chief Complaint: Altered mental status Primary Care Physician: Federico [place] History of Present Illness 87-year-old female who presents to the ED from [facility] for evaluation of altered mental status. At the time my exam, patient refuses to answer my questions as well as for me to perform a physical exam on her. Per review of ED documentation, patient was difficult to arouse this morning. She was also recently diagnosed pneumonia at [facility]. She has been receiving IM steroids and oral Levaquin. She also has apparently been refusing her medications the past couple of days. Patient was recently admitted to [facility] 11/05 through 11/17 for pneumonia and atrial fibrillation. It was highly advised for the patient to go to a nursing facility however and patient refused and patient was discharged home. Since that time, temporary court order was obtained to arrange for patient to be placed in a group home. Follow-up court order for permanent guardianship is scheduled for later this month. In the ED, patient's chest x-ray is suggestive of left basilar pneumonia. She is also hypoxic with oxygen saturations in the high 80s. She is refusing oxygen at the time my exam. Heart rate is also mildly elevated in the low 100s. Labs show a lactic acid of 4.5 but are otherwise unremarkable. Patient was ordered IV Solu-Medrol , IV Zosyn, IV vancomycin in the ED however she has refused an IV to be placed. She was given a DuoNeb treatment. Past Medical/Surgical History Medical Problems: (1) Atrial fibrillation Status: Chronic (2) Carotid artery disease Permanent Comment: carotid duplex [facility] 11/29/16: bilat plaque, moderate ECA stenosis bilat, no significant ICA stenosis Status: Chronic (3) Cerebrovascular disease Permanent Comment: ischemic stroke left basal ganglia 2009 Status: Chronic (4) COPD (chronic obstructive pulmonary disease) Status: Chronic (5) Dementia Permanent Comment: mild Status: Chronic (6) Diastolic CHF Status: Chronic (7) Hypertension Status: Chronic (8) Hypothyroidism Status: Chronic (9) Knee Joint Replacement Status Status: Chronic (10) Symptomatic bradycardia Permanent Comment: S/P pacemaker Status: Chronic (11) Urinary incontinence Status: Chronic Surgical Problems: (1) S/P placement of cardiac pacemaker Status: Chronic Family History Noncontributory secondary to patient's advanced age Social History Smoking Status: Never Smoker Alcohol Use: none Marital Status: Allergies Coded Allergies: Penicillins (Verified Allergy, Unknown, RXN TO AMOXICILLIN, 12/15/17) Adhesives (Verified Adverse Reaction, Mild, RXN TO TAPE, 12/15/17) Home Medications Scheduled Apixaban (Eliquis), 2.5 MG PO BID Atorvastatin (Lipitor), 40 MG PO DAILY Dexamethasone Sod Phos (Dexamethasone Sodium Phos), 40 MG IM BID Diltiazem Hcl Ext Rel (Tiazac), 120 MG PO DAILY Furosemide (Lasix), 20 MG PO DAILY Furosemide (Furosemide), 40 MG IM DAILY Latanoprost (Latanoprost), 1 DROP OPB HS Levofloxacin (Levaquin), 1 TAB PO DAILY Levothyroxine Sodium (Levothyroxine Sodium), 1 TAB PO DAILY Oxybutynin Chloride (Oxybutynin Chloride Er), 10 MG PO DAILY Potassium Ext Rel (Klor-Con), 20 MEQ PO DAILY Scheduled PRN Acetaminophen Tab (Tylenol), 650 MG PO Q6H PRN for Pain Albuterol Sulf (Proventil 0.083% 2.5MG/3ML), 2.5 MG INH Q4H PRN for SOB/Wheezing Bisacodyl (Dulcolax), 1 SUPP IN DAILY PRN for Constipation Magnesium Hydroxide (Milk Of Magnesia), 30 ML PO DAILY PRN for constipation Sodium Phosphates (Fleet Enema Six Pack), 1 DOSE RE DAILY PRN for Constipation Review of Systems Review of systems unable to be obtained as patient refuses to answer my questions Physical Exam Vital Signs Date Time Temp Pulse Resp B/P (MAP) Pulse Ox O2 Delivery O2 Flow Rate FiO2 12/15/17 18:00 107 18 127/83 91 12/15/17 15:39 116 16 127/83 93 Nasal Cannula 2.0 12/15/17 13:47 96 16 92 Nasal Cannula 2.0 12/15/17 13:38 115 12/15/17 12:21 103 20 133/68 93 Nasal Cannula 2.0 12/15/17 12:18 96 Nasal Cannula 2.0 12/15/17 11:39 84 20 96 Room Air 12/15/17 10:55 95 12/15/17 10:55 97 Nasal Cannula 2.0 12/15/17 10:51 36.4 91 20 104/73 96 Room Air 12/15/17 10:51 96 Room Air Physical exam refused by patient She is sitting up in bed in no acute distress. Diagnostics Laboratory Results Results Past 24 Hours Test 12/15/17 14:21 12/15/17 15:10 Range/Units White Blood Count 5.10 4.8-10.8 K/uL Red Blood Count 3.86 4.2-5.4 M/uL Hemoglobin 12.0 12.0-16.0 g/dL Hematocrit 36.3 37-47 % Mean Corpuscular Volume 94.0 80-100 fL Mean Corpuscular Hemoglobin 31.1 25-34 pg Mean Corpuscular Hemoglobin Concent 33.1 32-36 g/dl Platelet Count 358 130-400 K/uL Mean Platelet Volume 8.2 7.4-10.4 fL Neutrophils (%) (Auto) 89.0 % Lymphocytes (%) (Auto) 7.1 % Monocytes (%) (Auto) 3.7 % Eosinophils (%) (Auto) 0.0 % Basophils (%) (Auto) 0.0 % Neutrophils # (Auto) 4.54 1.4-6.5 K/uL Lymphocytes # (Auto) 0.36 1.2-3.4 K/uL Monocytes # (Auto) 0.19 0.11-0.59 K/uL Eosinophils # (Auto) 0.00 0-0.5 K/uL Basophils # (Auto) 0.00 0-0.2 K/uL RDW Standard Deviation 50.7 36.4-46.3 fL RDW Coefficient of Variation 14.9 11.5-14.5 % Immature Granulocyte % (Auto) 0.2 % Immature Granulocyte # (Auto) 0.01 0.00-0.02 K/uL Prothrombin Time 10.2 9.0-12.0 SECONDS Prothromb Time International Ratio 1.0 0.9-1.1 Venous Blood pH 7.35 7.36-7.41 Venous Blood Partial Pressure CO2 57 38.0-50.0 mmHg Venous Blood Partial Pressure O2 33 mmHg Venous Blood HCO3 31 mmol/L Venous Blood Oxygen Saturation < 60.0 % Venous Blood Base Excess 4.0 mEq/L Sodium Level 134 136-145 mmol/L Potassium Level 4.5 3.5-5.1 mmol/L Chloride Level 97 98-107 mmol/L Carbon Dioxide Level 30 21-32 mmol/L Anion Gap 7.0 3-11 mmol/L Blood Urea Nitrogen 15 7-18 mg/dl Creatinine 1.18 0.60-1.20 mg/dl Est Creatinine Clear Calc Drug Dose 42.1 ml/min Estimated GFR () 48.7 Estimated GFR (Non- 42.0 BUN/Creatinine Ratio 12.4 10-20 Random Glucose 151 70-99 mg/dl Lactic Acid Level 4.6 0.4-2.0 mmol/L Calcium Level 9.1 8.5-10.1 mg/dl Magnesium Level 2.0 1.8-2.4 mg/dl Total Bilirubin 0.4 0.2-1 mg/dl Direct Bilirubin 0.1 0-0.2 mg/dl Aspartate Amino Transf (AST/SGOT) 15 15-37 U/L Alanine Aminotransferase (ALT/SGPT) 20 12-78 U/L Alkaline Phosphatase 89 45-117 U/L Troponin I < 0.015 0-0.045 ng/ml Pro-B-Type Natriuretic Peptide 2004 0-1800 pg/ml Total Protein 6.8 6.4-8.2 gm/dl Albumin 2.8 3.4-5.0 gm/dl Lipase 62 73-393 U/L Digoxin Level 0.3 0.8-2.0 ng/ml Urine Color YELLOW Urine Appearance CLEAR CLEAR Urine pH 5.5 4.5-7.5 Urine Specific [place] 1.012 1.000-1.030 Urine Protein NEG NEG Urine Glucose (UA) NEG NEG Urine Ketones NEG NEG Urine Occult Blood NEG NEG Urine Nitrite NEG NEG Urine Bilirubin NEG NEG Urine Urobilinogen NEG NEG Urine Leukocyte Esterase NEG NEG Urine WBC (Auto) 0 0-5 /hpf Urine RBC (Auto) 0-4 0-4 /hpf Urine Hyaline Casts (Auto) 0 0-5 /lpf Urine Epithelial Cells (Auto) 0-5 0-5 /lpf Urine Bacteria (Auto) NEG NEG Microbiology Results 12/15/17 Blood Culture, Received Pending 12/15/17 Blood Culture, Ordered Pending Diagnostic Radiology CXR IMPRESSION: 1. Cardiomegaly and cardiac pacemaker. There is no radiographic evidence of congestive failure. 2. There is a small left pleural effusion with left basilar consolidation. This likely represents atelectasis and the diffusion has decreased in size from the 11/07/2017 CT scan. Clinical correlation will be required. Impression Assessment and Plan ACUTE HYPOXIC RESPIRATORY FAILURE, MULTIFACTORIAL DUE TO: PNEUMONIA, LIKELY HCAP COPD EXACERBATION -Admit to telemetry -Patient presenting from [facility] with altered mental status; in the ED found to be hypoxic and chest x-ray suggestive of a left basilar pneumonia -Patient currently refusing oxygen, IV start, as well as physical exam by myself -Since patient is refusing IV, will place her on oral doxycycline and prednisone ; if she agrees to an IV, will start imipenem -Check MRSA nasal swab; if antibiotics are transitioned to IV, will place on IV Vanco -[id number] nebs -Lactic acid 4.5, this is likely due to hypoxia; patient is afebrile and no leukocytosis, vitals are stable -ID consult for recurrent pneumonia, oral antibiotic recommendations as patient is refusing an IV ATRIAL FIBRILLATION -Heart rates currently in the low 100s likely due to hypoxia, infection, refusing medications -Continue diltiazem for rate control and Eliquis for anticoagulation CHRONIC DIASTOLIC CHF -Continue furosemide HYPOTHYROIDISM -Continue levothyroxine DVT PROPHYLAXIS -on Eliquis CODE STATUS -Patient is a full code as per my discussion with staff at [facility]. DISPOSITION -In my clinical judgment this beneficiary meets acute admission criteria, established by [facility], that includes being hospitalized through two midnights. -Case management consult; temporary court order was obtained to arrange for patient to be placed in a group home. Follow-up court order for permanent guardianship is scheduled for later this month. continues to be medical POA however there is a court order in place that requires the patient to be hospitalized or any nursing facility. She is not to be at home. Please see detailed notes from ED case management. patient seen and examined by myself patient resting, comfortable , watching tv denies symptoms care coordinated KENTON Mckenzie please see her note for full details agree with plan of care above ATTENDING ADDENDUM December 18, 2017 care coordinated with KENTON Mckenzie please refer to her notes for full details, I agree with her notes patient seen and examined, records reviewed by myself as well on exam, patient seemed comfortable, not in distress, denies shortness of breath chest pain or cough no other symptoms VS noted and reviewed oriented 2, not in distress, speaks in sentences with no effort nor accessory muscle use normal rate, regular rhythm, no murmurs Mild rales at the left base clear on the right, no wheezing non distended, soft, nontender no bipedal edema, erythema, warmth no neuro deficits WBC 5 Crea 1.18 ASSESSMENT/PLAN> Acute hypoxic respiratory failure possible left lower lobe pneumonia Patient currently on Levaquin as an outpatient MRSA nasal swab ordered For now IV imipenem and ID has been consulted May also have component of COPD exacerbation, start nebs on the clock and prednisone other diagnoses and plan of care as per KENTON Mckenzie's notes Ramakrishna Mayberry MD Resuscitation Status VTE Prophylaxis Will order VTE Prophylaxis: Yes
[2017-12-15] MEDS: ALBUT/IPRATROP 3MG/0.5MG NEB 3 ML VIAL INH SCH (20:00)
[2017-12-15] MEDS: IMIPENEM/CILASTATIN IV 500 MG in D5W 100ML IV SCH (20:16)
[2017-12-15] MEDS: LATANOPROST 0.005% OP SOLN 2.5 ML BTL OPB SCH (20:17)
[2017-12-15] MEDS: APIXABAN 2.5 MG TAB PO SCH (20:17)
[2017-12-15 20:18] VITALS: BP 165/72; PULSE 90; TEMP 36.6
[2017-12-15 20:40] VITALS: BP 165/72; PULSE 90; TEMP 36.6; O2SAT 91; Ht 167.6 cm; Wt 99.2 kg
[2017-12-15 23:03] VITALS: BP 124/72; PULSE 98; TEMP 36.8; O2SAT 91
[2017-12-16] VITALS (10 sets, daily range): BP systolic 101–165; BP diastolic 61–85; PULSE 65–121; TEMP 36.4–36.8; O2SAT 90–96
[2017-12-16] MEDS: IMIPENEM/CILASTATIN IV 500 MG in D5W 100ML IV SCH ×3 (03:41→18:56)
[2017-12-16] MEDS: LEVOTHYROXINE 100 MCG TAB PO SCH (06:21)
[2017-12-16] MEDS: ALBUT/IPRATROP 3MG/0.5MG NEB 3 ML VIAL INH SCH (07:01)
[2017-12-16] MEDS: DILTIAZEM HCL 120 MG EXT REL CAP PO SCH (08:47)
[2017-12-16] MEDS: APIXABAN 2.5 MG TAB PO SCH ×2 (08:47→20:36)
[2017-12-16] MEDS: OXYBUTYNIN CHLORIDE 5 MG TABCR PO SCH (08:48)
[2017-12-16] MEDS: ATORVASTATIN 40 MG TAB PO SCH (08:48)
[2017-12-16] MEDS: POTASSIUM CHLORIDE 20 MEQ TABCR PO SCH (08:48)
[2017-12-16] MEDS ORDERED: FUROSEMIDE 20 MG TAB PO SCH (09:00)
--- NOTE | 2017-12-16 10:24 | Medical Consult ---
Consultation Date of Consultation: December 16, 2017. Attending Physician: Ramakrishna Mayberry MD Reason for Consultation: Recurrent pneumonia, patient refusing IV medications History of Present Illness 87-year-old female with history of atrial fibrillation, COPD, admitted in October for heart failure and pneumonia, who is now a resident of [facility], who was started last week on Levaquin for apparent pulmonary infection, who was now admitted with 1 day of altered mental status with lack of responsiveness, no report of fever or chills. No increasing shortness of breath or cough. This morning, patient does not know why she was admitted to the hospital, states she is feeling entirely well and has no current issues. Denies any pain. Past Medical/Surgical History Medical Problems: (1) Altered mental status Status: Acute (2) Atrial fibrillation Status: Acute (3) Change in mental status Status: Acute (4) CO2 retention Status: Acute (5) Exacerbation of asthma Status: Acute (6) Respiratory distress Status: Acute (7) UTI (urinary tract infection) Status: Acute Medical Problems: (1) Atrial fibrillation (2) Carotid artery disease (3) Cerebrovascular disease (4) COPD (chronic obstructive pulmonary disease) (5) Dementia (6) Diastolic CHF (7) Hypertension (8) Hypothyroidism (9) Knee Joint Replacement Status (10) Symptomatic bradycardia (11) Urinary incontinence Surgical Problems: (1) S/P placement of cardiac pacemaker Family History Cancer Diabetes mellitus Heart disease Social History Smoking Status: Never Smoker Alcohol Use: none Marital Status: Housing Status: lives with family Allergies Coded Allergies: Penicillins (Verified Allergy, Unknown, RXN TO AMOXICILLIN, 12/15/17) Adhesives (Verified Adverse Reaction, Mild, RXN TO TAPE, 12/15/17) Current Inpatient Medications Current Inpatient Medications Medications (Trade) Dose Ordered Sig/Mak Route Start Time Stop Time Status Last Admin Dose Admin Acetaminophen (Tylenol Tab) 650 mg Q4H PRN PO 12/15/17 17:15 01/14/18 17:14 Promethazine HCl 12.5 mg/Sodium Chloride 50.5 ml @ 204 mls/hr Q6H PRN IV 12/15/17 17:15 01/14/18 17:14 Apixaban (Eliquis Tab) 2.5 mg BID PO 12/15/17 21:00 01/14/18 20:59 12/16/17 08:47 2.5 MG Atorvastatin Calcium (Lipitor Tab) 40 mg DAILY PO 12/16/17 09:00 01/15/18 08:59 Bisacodyl (Dulcolax Supp) 10 mg DAILY PRN MA 12/15/17 18:00 01/14/18 17:59 Diltiazem HCl (TIAzac CAP) 120 mg DAILY PO 12/16/17 09:00 01/15/18 08:59 12/16/17 08:47 120 MG Furosemide (Lasix Tab) 20 mg DAILY PO 12/16/17 09:00 01/15/18 08:59 Latanoprost (Xalatan Oph Soln) 1 drops HS OPB 12/15/17 21:00 01/14/18 20:59 12/15/17 20:17 1 DROPS Levothyroxine Sodium (Synthroid Tab) 100 mcg DAILYBB PO 12/16/17 06:30 01/15/18 06:29 12/16/17 06:21 100 MCG Magnesium Hydroxide (Milk Of Magnesia Susp) 30 ml DAILY PRN PO 12/15/17 18:00 01/14/18 17:59 Oxybutynin Chloride (Ditropan-Xl Tab) 10 mg DAILY PO 12/16/17 09:00 01/15/18 08:59 Potassium Chloride (Klor-Con Tab) 20 meq DAILY PO 12/16/17 09:00 01/15/18 08:59 Sodium Biphosphate/ Sodium Phosphate (Fleet Enema) 118 ml DAILY PRN MA 12/15/17 18:00 01/14/18 17:59 Prednisone (PredniSONE TAB) 40 mg DAILY PO 12/15/17 19:00 12/20/17 18:59 12/15/17 19:38 40 MG Imipenem/ Cilastatin Sodium 500 mg/Dextrose 110 ml @ 110 mls/hr Q8H IV 12/15/17 19:00 12/22/17 18:59 Future hold 12/16/17 03:41 110 MLS/HR Imipenem/ Cilastatin Sodium (Consult) 1 ea UD PRN N/A 12/15/17 19:00 01/14/18 18:59 Miscellaneous (Xopenex/ Atrovent Neb) 1 ea Q6R INH 12/16/17 13:00 01/15/18 12:59 UNV Review of Systems All systems reviewed, and patient denies any positive symptoms. Physical Exam Date Time Temp Pulse Resp B/P (MAP) Pulse Ox O2 Delivery O2 Flow Rate FiO2 12/16/17 08:41 65 101/62 (75) 12/16/17 08:00 96 Room Air 2.0 12/16/17 07:12 36.4 121 20 165/85 (111) 92 12/16/17 07:03 89 20 93 Room Air 12/16/17 04:21 36.7 96 18 119/81 (94) 90 Room Air 12/16/17 04:00 Room Air 12/15/17 23:59 Room Air 12/15/17 23:03 36.8 98 20 124/72 (89) 91 Room Air 12/15/17 20:40 91 Nasal Cannula 2.0 12/15/17 20:40 36.6 90 20 165/72 (103) 91 Nasal Cannula 2.0 12/15/17 20:18 36.6 90 20 165/72 (103) 12/15/17 20:00 Room Air 12/15/17 18:00 107 18 127/83 91 12/15/17 15:39 116 16 127/83 93 Nasal Cannula 2.0 12/15/17 13:47 96 16 92 Nasal Cannula 2.0 12/15/17 13:38 115 12/15/17 12:21 103 20 133/68 93 Nasal Cannula 2.0 12/15/17 12:18 96 Nasal Cannula 2.0 12/15/17 11:39 84 20 96 Room Air 12/15/17 10:55 95 12/15/17 10:55 97 Nasal Cannula 2.0 12/15/17 10:51 36.4 91 20 104/73 96 Room Air 12/15/17 10:51 96 Room Air General Appearance: WD/WN, no apparent distress Head: normocephalic, atraumatic Eyes: normal inspection, EOMI, sclerae normal ENT: normal ENT inspection, pharynx normal Neck: supple, no adenopathy, thyroid normal, trachea midline Respiratory/Chest: chest non-tender, no respiratory distress, no accessory muscle use, + rales (Left base) Cardiovascular: regular rate, rhythm, no gallop, + systolic murmur Abdomen/GI: normal bowel sounds, non tender, soft, no organomegaly Back: normal inspection, no CVA tenderness Extremities/Musculoskelatal: no calf tenderness, normal capillary refill, non- tender Neurologic/Psych: alert, oriented x 3 Skin: normal color, warm/dry, no rash Lymphatic: no adenopathy Laboratory Results Date/Time Source Procedure Growth Status 12/15/17 14:21 Blood Blood Culture Pending Received 12/15/17 20:27 Nasal MRSA DNA Surveillance Screen - Final Specimen Negative for MRSA by DNA Probe Complete Last 24 Hours Test 12/15/17 14:21 12/15/17 15:10 12/16/17 04:44 12/16/17 10:06 White Blood Count 5.10 K/uL Red Blood Count 3.86 M/uL Hemoglobin 12.0 g/dL Hematocrit 36.3 % Mean Corpuscular Volume 94.0 fL Mean Corpuscular Hemoglobin 31.1 pg Mean Corpuscular Hemoglobin Concent 33.1 g/dl Platelet Count 358 K/uL Mean Platelet Volume 8.2 fL Neutrophils (%) (Auto) 89.0 % Lymphocytes (%) (Auto) 7.1 % Monocytes (%) (Auto) 3.7 % Eosinophils (%) (Auto) 0.0 % Basophils (%) (Auto) 0.0 % Neutrophils # (Auto) 4.54 K/uL Lymphocytes # (Auto) 0.36 K/uL Monocytes # (Auto) 0.19 K/uL Eosinophils # (Auto) 0.00 K/uL Basophils # (Auto) 0.00 K/uL RDW Standard Deviation 50.7 fL RDW Coefficient of Variation 14.9 % Immature Granulocyte % (Auto) 0.2 % Immature Granulocyte # (Auto) 0.01 K/uL Prothrombin Time 10.2 SECONDS Prothromb Time International Ratio 1.0 Venous Blood pH 7.35 Venous Blood Partial Pressure CO2 57 mmHg Venous Blood Partial Pressure O2 33 mmHg Venous Blood HCO3 31 mmol/L Venous Blood Oxygen Saturation < 60.0 % Venous Blood Base Excess 4.0 mEq/L Sodium Level 134 mmol/L Potassium Level 4.5 mmol/L Chloride Level 97 mmol/L Carbon Dioxide Level 30 mmol/L Anion Gap 7.0 mmol/L Blood Urea Nitrogen 15 mg/dl Creatinine 1.18 mg/dl Est Creatinine Clear Calc Drug Dose 42.1 ml/min Estimated GFR () 48.7 Estimated GFR (Non- 42.0 BUN/Creatinine Ratio 12.4 Random Glucose 151 mg/dl Lactic Acid Level 4.6 mmol/L Calcium Level 9.1 mg/dl Magnesium Level 2.0 mg/dl Total Bilirubin 0.4 mg/dl Direct Bilirubin 0.1 mg/dl Aspartate Amino Transf (AST/SGOT) 15 U/L Alanine Aminotransferase (ALT/SGPT) 20 U/L Alkaline Phosphatase 89 U/L Troponin I < 0.015 ng/ml Pro-B-Type Natriuretic Peptide 2004 pg/ml Total Protein 6.8 gm/dl Albumin 2.8 gm/dl Lipase 62 U/L Digoxin Level 0.3 ng/ml Urine Color YELLOW Urine Appearance CLEAR Urine pH 5.5 Urine Specific [place] 1.012 Urine Protein NEG Urine Glucose (UA) NEG Urine Ketones NEG Urine Occult Blood NEG Urine Nitrite NEG Urine Bilirubin NEG Urine Urobilinogen NEG Urine Leukocyte Esterase NEG Urine WBC (Auto) 0 /hpf Urine RBC (Auto) 0-4 /hpf Urine Hyaline Casts (Auto) 0 /lpf Urine Epithelial Cells (Auto) 0-5 /lpf Urine Bacteria (Auto) NEG [~ rep ct add3]] SINGLE VIEW CHEST CLINICAL HISTORY: Dyspnea. FINDINGS: An AP, portable, upright chest radiograph is compared to study dated 11/06/2017 and correlated with chest CT dated 11/07/2017. The examination is degraded by portable technique and apical lordotic positioning. A 2-lead cardiac pacemaker is unchanged in position and partially obscures the left upper chest. The heart is enlarged and there is atherosclerotic calcification of the thoracic aorta. The pulmonary vasculature is noncongested. Chronic interstitial thickening is similar to previous. There is a left pleural effusion with left basilar consolidation.. No pneumothorax is seen. The skeletal structures are osteopenic. The bony thorax is grossly intact. IMPRESSION: 1. Cardiomegaly and cardiac pacemaker. There is no radiographic evidence of congestive failure. 2. There is a small left pleural effusion with left basilar consolidation. This likely represents atelectasis and the diffusion has decreased in size from the 11/07/2017 CT scan. Clinical correlation will be required. Electronically signed by: Nicolás Ochoa Assessment & Plan 87-year-old female admitted with acute change in mental status and hypoxia, not clear whether she has recurrent pneumonia or whether chest x-ray with findings represent prior episode. For now pending further cultures, antibiotics to be continued. I have ordered pro-calcitonin to help with evaluation. Will follow.
[2017-12-16 10:33] LABS: HEMATOCRIT 35.7 % (37-47); MEAN CELL VOLUME 93.7 fL (80-100); MEAN CORPUSCULAR HEMOGLOBIN 31.5 pg (25-34); MEAN CORPUSCULAR HGB CONC 33.6 g/dl (32-36); PLATELET COUNT 380 K/uL (130-400); RED CELL DISTRIBUTION WIDTH CV 15.2 % (11.5-14.5); RED CELL DISTRIBUTION WIDTH SD 51.8 fL (36.4-46.3); WHITE BLOOD COUNT 9.42 K/uL (4.8-10.8)
[2017-12-16 10:51] LABS: CALCIUM 9.2 mg/dl (8.5-10.1); CREATININE 1.07 mg/dl (0.60-1.20); POTASSIUM 4.3 mmol/L (3.5-5.1)
[2017-12-16] MEDS ORDERED: LEVALBUTEROL/IPRATROPIUM NEB INH SCH (13:00)
[2017-12-16] MEDS: LEVALBUTEROL 0.63MG/3 ML NEB INH SCH ×2 (14:07→19:16)
[2017-12-16] MEDS: IPRATROPIUM BROMIDE NEB SOLN 0.02% 2.5 ML VIAL INH SCH ×2 (14:07→19:16)
--- NOTE | 2017-12-16 16:36 | DIAGNOSTIC IMAGING REPORT ---
L EXTREMITY NONVASCULAR LIMITED CLINICAL HISTORY: 87 years-old Female presenting with r/o left knee effusion. TECHNIQUE: Real-time grayscale Doppler ultrasound imaging of the left knee was performed for a focused evaluation at the site of clinical concern. Color Doppler ultrasound imaging was also performed. COMPARISON: None. FINDINGS: Trace fluid is evident within the soft tissues superficial to the knee joint within the infrapatellar region. No hyperemia. No significant subcutaneous edema. IMPRESSION: 1. Trace fluid in the anterior left knee, which is most likely extra-articular. No large knee joint effusion. Electronically signed by: Jens Morgan M.D. 12/16/2017 4:34 PM Dictated Date/Time: 12/16/2017 4:26 PM
[2017-12-16] MEDS: LATANOPROST 0.005% OP SOLN 2.5 ML BTL OPB SCH (20:36)
--- NOTE | 2017-12-16 21:00 | Progress Note ---
Medicine Progress Note Date & Time of Visit: December 16, 2017 at 20:46. Subjective Seen resting bedside chair, comfortable, very irritable and raising voice when answering questions She was upset that I was in to see her, she was asking why a lot of people asked to see her today I explained to her that the medical staff needs to evaluate her to help get better and she seemed to be more calm Appears to be oriented 2 RN reports patient has declined most of her medications this morning and was also very irritable to her Patient has allowed me to evaluate her, during interview and examine her Denies cough, shortness of breath No chest pain headache dizziness palpitations Denies any pain or body No other symptoms Objective Last 8 Hrs Date Time Temp Pulse Resp B/P (MAP) Pulse Ox O2 Delivery O2 Flow Rate FiO2 12/16/17 19:45 Room Air 12/16/17 19:16 87 20 94 Room Air 12/16/17 16:00 Room Air 12/16/17 14:58 36.8 72 20 126/78 (94) 95 12/16/17 14:10 81 20 94 Room Air Physical Exam: General-oriented 3, speaking in sentences, no accessory muscle use Head- atraumatic Eyes- anicteric Neck- supple, no JVD Lungs- clear breath sounds bilaterally Heart- regular rhythm; no murmur, normal rate From this point on the patient has declined further physical exam Extremities-no signs of edema Laboratory Results: Last 24 Hours Test 12/16/17 10:19 12/16/17 16:06 White Blood Count 9.42 K/uL Red Blood Count 3.81 M/uL Hemoglobin 12.0 g/dL Hematocrit 35.7 % Mean Corpuscular Volume 93.7 fL Mean Corpuscular Hemoglobin 31.5 pg Mean Corpuscular Hemoglobin Concent 33.6 g/dl RDW Standard Deviation 51.8 fL RDW Coefficient of Variation 15.2 % Platelet Count 380 K/uL Mean Platelet Volume 8.0 fL Sodium Level 136 mmol/L Potassium Level 4.3 mmol/L Chloride Level 100 mmol/L Carbon Dioxide Level 31 mmol/L Anion Gap 5.0 mmol/L Blood Urea Nitrogen 24 mg/dl Creatinine 1.07 mg/dl Est Creatinine Clear Calc Drug Dose 44.1 ml/min Estimated GFR () 54.8 Estimated GFR (Non- 47.3 BUN/Creatinine Ratio 22.3 Random Glucose 119 mg/dl Lactic Acid Level 2.2 mmol/L 2.3 mmol/L Calcium Level 9.2 mg/dl Procalcitonin 0.06 ng/ml Assessment & Plan ACUTE HYPOXIC RESPIRATORY FAILURE, MULTIFACTORIAL DUE TO: PNEUMONIA, LIKELY HCAP COPD EXACERBATION Was on Levaquin at the senior living facility Admit to the ER with hypoxia Chest x-ray showing possible left lower lobe pneumonia Nasal MRSA negative Currently afebrile and off oxygen supplementation Patient appears comfortable as well On empiric imipenem IV ID consulted for antibiotic recommendations Continue nebs every 6 hours and taper prednisone accordingly LACTIC ACIDOSIS Did not meet sepsis criteria Lactic acid level 4 now down to 2 Monitor for signs of sepsis ATRIAL FIBRILLATION -Admitted with heart rate in the low 100s likely due to hypoxia, infection, refusing medications Improving -Continue diltiazem for rate control and Eliquis for anticoagulation CHRONIC DIASTOLIC CHF Appears euvolemic -Continue furosemide HYPOTHYROIDISM -Continue levothyroxine DVT PROPHYLAXIS -on Eliquis CODE STATUS -Patient is a full code as per my discussion with staff at [facility]. DISPOSITION Evaluation currently in progress Case management on board Current Inpatient Medications: Current Inpatient Medications Medications (Trade) Dose Ordered Sig/Mak Route Start Time Stop Time Status Last Admin Dose Admin Acetaminophen (Tylenol Tab) 650 mg Q4H PRN PO 12/15/17 17:15 01/14/18 17:14 Promethazine HCl 12.5 mg/Sodium Chloride 50.5 ml @ 204 mls/hr Q6H PRN IV 12/15/17 17:15 01/14/18 17:14 Apixaban (Eliquis Tab) 2.5 mg BID PO 12/15/17 21:00 01/14/18 20:59 12/16/17 20:36 2.5 MG Atorvastatin Calcium (Lipitor Tab) 40 mg DAILY PO 12/16/17 09:00 01/15/18 08:59 Bisacodyl (Dulcolax Supp) 10 mg DAILY PRN [place] 12/15/17 18:00 01/14/18 17:59 Diltiazem HCl (TIAzac CAP) 120 mg DAILY PO 12/16/17 09:00 01/15/18 08:59 12/16/17 08:47 120 MG Latanoprost (Xalatan Oph Soln) 1 drops HS OPB 12/15/17 21:00 01/14/18 20:59 12/16/17 20:36 1 DROPS Levothyroxine Sodium (Synthroid Tab) 100 mcg DAILYBB PO 12/16/17 06:30 01/15/18 06:29 12/16/17 06:21 100 MCG Magnesium Hydroxide (Milk Of Magnesia Susp) 30 ml DAILY PRN PO 12/15/17 18:00 01/14/18 17:59 Oxybutynin Chloride (Ditropan-Xl Tab) 10 mg DAILY PO 12/16/17 09:00 01/15/18 08:59 Potassium Chloride (Klor-Con Tab) 20 meq DAILY PO 12/16/17 09:00 01/15/18 08:59 Sodium Biphosphate/ Sodium Phosphate (Fleet Enema) 118 ml DAILY PRN [place] 12/15/17 18:00 01/14/18 17:59 Prednisone (PredniSONE TAB) 40 mg DAILY PO 12/15/17 19:00 12/20/17 18:59 12/15/17 19:38 40 MG Imipenem/ Cilastatin Sodium 500 mg/Dextrose 110 ml @ 110 mls/hr Q8H IV 12/15/17 19:00 12/22/17 18:59 Future hold 12/16/17 18:56 110 MLS/HR Imipenem/ Cilastatin Sodium (Consult) 1 ea UD PRN N/A 12/15/17 19:00 01/14/18 18:59 Ipratropium [place] (Atrovent 0.02% 0.5MG/2.5ML Neb) 0.5 mg Q6R INH 12/16/17 15:00 01/15/18 14:59 12/16/17 19:16 0.5 MG Levalbuterol (Xopenex 0.63 Mg/ 3 Ml Neb) 0.63 mg Q6R INH 12/16/17 15:00 01/15/18 14:59 12/16/17 19:16 0.63 MG
[2017-12-17] VITALS (10 sets, daily range): BP systolic 120–155; BP diastolic 63–87; PULSE 57–103; TEMP 36.4–36.8; O2SAT 92–96
[2017-12-17] MEDS: IPRATROPIUM BROMIDE NEB SOLN 0.02% 2.5 ML VIAL INH SCH ×4 (01:47→19:12)
[2017-12-17] MEDS: LEVALBUTEROL 0.63MG/3 ML NEB INH SCH ×4 (01:47→19:12)
[2017-12-17] MEDS: IMIPENEM/CILASTATIN IV 500 MG in D5W 100ML IV SCH ×3 (03:23→18:39)
[2017-12-17] MEDS: LEVOTHYROXINE 100 MCG TAB PO SCH (06:09)
[2017-12-17] MEDS: OXYBUTYNIN CHLORIDE 5 MG TABCR PO SCH (07:44)
[2017-12-17] MEDS: ATORVASTATIN 40 MG TAB PO SCH (07:44)
[2017-12-17] MEDS: POTASSIUM CHLORIDE 20 MEQ TABCR PO SCH (07:44)
[2017-12-17] MEDS: APIXABAN 2.5 MG TAB PO SCH ×2 (07:48→20:35)
[2017-12-17] MEDS: DILTIAZEM HCL 120 MG EXT REL CAP PO SCH (07:48)
--- NOTE | 2017-12-17 10:01 | DIAGNOSTIC IMAGING REPORT ---
LEFT KNEE 2 VIEWS HISTORY: Left knee pain and swelling. COMPARISON: None. FINDINGS: No acute fracture or dislocation within the left knee. Severe tricompartmental osteoarthritis with [id number]-of-[id number] articulation within the medial and patellofemoral compartments. There are large tricompartmental osteophytes. Vascular calcifications are noted. The tip of the proximal femoral prosthesis is identified. Small to moderate knee effusion. Vascular calcifications are noted. There is posterior subcutaneous edema within the knee. IMPRESSION: 1. No acute fracture or dislocation within the left knee. 2. Small to moderate knee effusion. 3. Severe tricompartmental osteoarthritis. Electronically signed by: Marcin Rodríguez M.D. 12/17/2017 10:00 AM Dictated Date/Time: 12/17/2017 9:58 AM
--- NOTE | 2017-12-17 18:03 | Orthopedic Consultation ---
Orthopedic Consultation Date of Consultation: December 17, 2017. Attending Physician: Iam Jon MD Reason for Consultation: Left knee pain History of Present Illness Patient has dementia has been in and out of the hospital and had histories of fall. Past Medical/Surgical History Medical Problems: (1) Altered mental status Status: Acute (2) Atrial fibrillation Status: Acute (3) Change in mental status Status: Acute (4) CO2 retention Status: Acute (5) Exacerbation of asthma Status: Acute (6) Respiratory distress Status: Acute (7) UTI (urinary tract infection) Status: Acute Family History Cancer Diabetes mellitus Heart disease Social History Smoking Status: Never Smoker Alcohol Use: none Marital Status: Housing Status: lives with family Allergies Coded Allergies: Penicillins (Verified Allergy, Unknown, RXN TO AMOXICILLIN, 12/15/17) Adhesives (Verified Adverse Reaction, Mild, RXN TO TAPE, 12/15/17) Home Medications Scheduled Apixaban (Eliquis), 2.5 MG PO BID Atorvastatin (Lipitor), 40 MG PO DAILY Dexamethasone Sod Phos (Dexamethasone Sodium Phos), 40 MG IM BID Diltiazem Hcl Ext Rel (Tiazac), 120 MG PO DAILY Furosemide (Lasix), 20 MG PO DAILY Furosemide (Furosemide), 40 MG IM DAILY Latanoprost (Latanoprost), 1 DROP OPB HS Levofloxacin (Levaquin), 1 TAB PO DAILY Levothyroxine Sodium (Levothyroxine Sodium), 1 TAB PO DAILY Oxybutynin Chloride (Oxybutynin Chloride Er), 10 MG PO DAILY Potassium Ext Rel (Klor-Con), 20 MEQ PO DAILY Scheduled PRN Acetaminophen Tab (Tylenol), 650 MG PO Q6H PRN for Pain Albuterol Sulf (Proventil 0.083% 2.5MG/3ML), 2.5 MG INH Q4H PRN for SOB/Wheezing Bisacodyl (Dulcolax), 1 SUPP CA DAILY PRN for Constipation Magnesium Hydroxide (Milk Of Magnesia), 30 ML PO DAILY PRN for constipation Sodium Phosphates (Fleet Enema Six Pack), 1 DOSE RE DAILY PRN for Constipation Current Inpatient Medications Current Inpatient Medications Medications (Trade) Dose Ordered Sig/Mak Route Start Time Stop Time Status Last Admin Dose Admin Acetaminophen (Tylenol Tab) 650 mg Q4H PRN PO 12/15/17 17:15 6/20/18 17:14 Promethazine HCl 12.5 mg/Sodium Chloride 50.5 ml @ 204 mls/hr Q6H PRN IV 12/15/17 17:15 01/14/18 17:14 Apixaban (Eliquis Tab) 2.5 mg BID PO 12/15/17 21:00 01/14/18 20:59 12/17/17 07:48 2.5 MG Atorvastatin Calcium (Lipitor Tab) 40 mg DAILY PO 12/16/17 09:00 01/15/18 08:59 Bisacodyl (Dulcolax Supp) 10 mg DAILY PRN [place] 12/15/17 18:00 01/14/18 17:59 Diltiazem HCl (TIAzac CAP) 120 mg DAILY PO 12/16/17 09:00 01/15/18 08:59 12/17/17 07:48 120 MG Latanoprost (Xalatan Oph Soln) 1 drops HS OPB 12/15/17 21:00 01/14/18 20:59 12/16/17 20:36 1 DROPS Levothyroxine Sodium (Synthroid Tab) 100 mcg DAILYBB PO 12/16/17 06:30 01/15/18 06:29 12/17/17 06:09 100 MCG Magnesium Hydroxide (Milk Of Magnesia Susp) 30 ml DAILY PRN PO 12/15/17 18:00 01/14/18 17:59 Oxybutynin Chloride (Ditropan-Xl Tab) 10 mg DAILY PO 12/16/17 09:00 01/15/18 08:59 Potassium Chloride (Klor-Con Tab) 20 meq DAILY PO 12/16/17 09:00 01/15/18 08:59 Sodium Biphosphate/ Sodium Phosphate (Fleet Enema) 118 ml DAILY PRN [place] 12/15/17 18:00 01/14/18 17:59 Prednisone (PredniSONE TAB) 40 mg DAILY PO 12/15/17 19:00 12/20/17 18:59 12/15/17 19:38 40 MG Imipenem/ Cilastatin Sodium 500 mg/Dextrose 110 ml @ 110 mls/hr Q8H IV 12/15/17 19:00 12/22/17 18:59 Future hold 12/17/17 10:48 110 MLS/HR Imipenem/ Cilastatin Sodium (Consult) 1 ea UD PRN N/A 12/15/17 19:00 01/14/18 18:59 Ipratropium [place] (Atrovent 0.02% 0.5MG/2.5ML Neb) 0.5 mg Q6R INH 12/16/17 15:00 01/15/18 14:59 12/17/17 14:02 0.5 MG Levalbuterol (Xopenex 0.63 Mg/ 3 Ml Neb) 0.63 mg Q6R INH 12/16/17 15:00 01/15/18 14:59 12/17/17 14:02 0.63 MG Review of Systems Musculoskeletal: + problem reported (Left knee pain, patient does not recall injury or denies injury) Physical Exam Date Time Temp Pulse Resp B/P (MAP) Pulse Ox O2 Delivery O2 Flow Rate FiO2 12/17/17 16:00 Room Air 12/17/17 15:34 36.5 93 16 155/79 (104) 95 Room Air 12/17/17 14:04 83 18 95 Room Air 12/17/17 12:00 Room Air 12/17/17 11:38 36.5 102 18 127/63 (84) 92 Room Air 12/17/17 08:00 Room Air 12/17/17 07:47 103 143/87 (105) 12/17/17 07:13 36.8 57 18 120/72 (88) 96 12/17/17 06:56 87 16 92 Room Air 12/17/17 05:11 36.7 96 20 132/73 (92) 92 Room Air 12/17/17 04:00 Room Air 12/17/17 01:47 84 16 95 Room Air 12/17/17 00:00 Room Air 12/16/17 23:08 36.8 96 18 136/69 (91) 90 Room Air 12/16/17 19:45 Room Air 12/16/17 19:16 87 20 94 Room Air Extremities/Musculoskelatal: + pertinent finding (Left knee with some swelling consistent with osteoarthritis. She has medial joint line tenderness. Patient refused to move her knee. No obvious quad defect. Does have abrasions over the pretibial area likely from falling or some injury. No gross instability. Patient will not extend her knee against gravity but I can hold it there and she appears to have the ability to hold her leg up against gravity. Patient for the most part just refused to move her knee. There is no signs of erythema no signs of infection. She denied any pain in her right knee which has an incision from knee replacement. Circulation appears to be satisfactory. No gross neurological deficits.) Assessment & Plan Radiographs demonstrate severe osteoarthritis of the knee. Typically the severe osteoarthritis requiring knee replacement but patient's elderly demented and likely not a good candidate for surgery. I offered the patient steroid injection but she did not want anything done at this time. Treatment options could be bracing conservative management therapy pain management or injection if she changes her mind.
--- NOTE | 2017-12-17 18:26 | Progress Note ---
Internal Med Progress Note Date of Service: December 17, 2017. Provider Documentation: SUBJECTIVE: sitting in the chair comfortably denies headache denies chest pain or sob no nausea afebrile says eating fine refuses for examination even after requesting few times- says she is fine and do not any examination OBJECTIVE: Vital Signs-as noted below Exam: refused examination Lab data as noted below. ASSESSMENT & PLAN: ACUTE HYPOXIC RESPIRATORY FAILURE, MULTIFACTORIAL DUE TO: PNEUMONIA, LIKELY HCAP COPD EXACERBATION Was on Levaquin at the assisted facility was ypoxic in ER cxr LLL pneumonia old vs recurrent on PRIMAXIN ID on board LACTIC ACIDOSIS Did not meet sepsis criteria Lactic acid level 4 now down to 2 Will monitor for signs of sepsis ATRIAL FIBRILLATION Admitted with heart rate in the low 100s likely due to hypoxia, infection, refusing medications Improving on diltiazem for rate control and Eliquis for anticoagulation CHRONIC DIASTOLIC CHF Appears euvolemic To Continue furosemide HYPOTHYROIDISM On levothyroxine Left knee pain osteoarthritis seen by ortho and appreciate inputs refusing any intervention DVT PROPHYLAXIS on Eliquis CODE STATUS Patient is a full code as per admission. DISPOSITION plan for placement Case management on board Vital Signs: Date Time Temp Pulse Resp B/P (MAP) Pulse Ox O2 Delivery O2 Flow Rate FiO2 12/17/17 16:00 Room Air 12/17/17 15:34 36.5 93 16 155/79 (104) 95 Room Air 12/17/17 14:04 83 18 95 Room Air 12/17/17 12:00 Room Air 12/17/17 11:38 36.5 102 18 127/63 (84) 92 Room Air 12/17/17 08:00 Room Air 12/17/17 07:47 103 143/87 (105) 12/17/17 07:13 36.8 57 18 120/72 (88) 96 12/17/17 06:56 87 16 92 Room Air 12/17/17 05:11 36.7 96 20 132/73 (92) 92 Room Air 12/17/17 04:00 Room Air 12/17/17 01:47 84 16 95 Room Air 12/17/17 00:00 Room Air 12/16/17 23:08 36.8 96 18 136/69 (91) 90 Room Air 12/16/17 19:45 Room Air 12/16/17 19:16 87 20 94 Room Air
--- NOTE | 2017-12-17 18:51 | Infectious Disease Progress Nt ---
Progress Note Date of Service December 17, 2017. Subjective Pt evaluation today including: conversation w/ patient, physical exam, chart review, lab review, review of studies, conversation w/ architecture consultant, review of inpatient medication list Patient states that she feels well, offers no new complaints today. Remains afebrile. Tolerating therapy without apparent difficulty. Cultures negative to date. Procalcitonin level 0.06, suggesting severe bacterial infection not present. All Other Systems: Reviewed and Negative Medications Current Inpatient Medications Medications (Trade) Dose Ordered Sig/Mak Route Start Time Stop Time Status Last Admin Dose Admin Acetaminophen (Tylenol Tab) 650 mg Q4H PRN PO 12/15/17 17:15 01/14/18 17:14 Promethazine HCl 12.5 mg/Sodium Chloride 50.5 ml @ 204 mls/hr Q6H PRN IV 12/15/17 17:15 01/14/18 17:14 Apixaban (Eliquis Tab) 2.5 mg BID PO 12/15/17 21:00 01/14/18 20:59 12/17/17 07:48 2.5 MG Atorvastatin Calcium (Lipitor Tab) 40 mg DAILY PO 12/16/17 09:00 01/15/18 08:59 Bisacodyl (Dulcolax Supp) 10 mg DAILY PRN [place] 12/15/17 18:00 01/14/18 17:59 Diltiazem HCl (TIAzac CAP) 120 mg DAILY PO 12/16/17 09:00 01/15/18 08:59 12/17/17 07:48 120 MG Latanoprost (Xalatan Oph Soln) 1 drops HS OPB 12/15/17 21:00 01/14/18 20:59 12/16/17 20:36 1 DROPS Levothyroxine Sodium (Synthroid Tab) 100 mcg DAILYBB PO 12/16/17 06:30 01/15/18 06:29 12/17/17 06:09 100 MCG Magnesium Hydroxide (Milk Of Magnesia Susp) 30 ml DAILY PRN PO 12/15/17 18:00 01/14/18 17:59 Oxybutynin Chloride (Ditropan-Xl Tab) 10 mg DAILY PO 12/16/17 09:00 01/15/18 08:59 Potassium Chloride (Klor-Con Tab) 20 meq DAILY PO 12/16/17 09:00 6/21/18 08:59 Sodium Biphosphate/ Sodium Phosphate (Fleet Enema) 118 ml DAILY PRN [place] 12/15/17 18:00 01/14/18 17:59 Prednisone (PredniSONE TAB) 40 mg DAILY PO 12/15/17 19:00 12/20/17 18:59 12/15/17 19:38 40 MG Imipenem/ Cilastatin Sodium 500 mg/Dextrose 110 ml @ 110 mls/hr Q8H IV 12/15/17 19:00 12/22/17 18:59 Future hold 12/17/17 18:39 110 MLS/HR Imipenem/ Cilastatin Sodium (Consult) 1 ea UD PRN N/A 12/15/17 19:00 01/14/18 18:59 Ipratropium [place] (Atrovent 0.02% 0.5MG/2.5ML Neb) 0.5 mg Q6R INH 12/16/17 15:00 01/15/18 14:59 12/17/17 14:02 0.5 MG Levalbuterol (Xopenex 0.63 Mg/ 3 Ml Neb) 0.63 mg Q6R INH 12/16/17 15:00 01/15/18 14:59 12/17/17 14:02 0.63 MG Objective Vital Signs Date Time Temp Pulse Resp B/P (MAP) Pulse Ox O2 Delivery O2 Flow Rate FiO2 12/17/17 16:00 Room Air 12/17/17 15:34 36.5 93 16 155/79 (104) 95 Room Air 12/17/17 14:04 83 18 95 Room Air 12/17/17 12:00 Room Air 12/17/17 11:38 36.5 102 18 127/63 (84) 92 Room Air 12/17/17 08:00 Room Air 12/17/17 07:47 103 143/87 (105) 12/17/17 07:13 36.8 57 18 120/72 (88) 96 12/17/17 06:56 87 16 92 Room Air 12/17/17 05:11 36.7 96 20 132/73 (92) 92 Room Air 12/17/17 04:00 Room Air 12/17/17 01:47 84 16 95 Room Air 12/17/17 00:00 Room Air 12/16/17 23:08 36.8 96 18 136/69 (91) 90 Room Air 12/16/17 19:45 Room Air 12/16/17 19:16 87 20 94 Room Air Physical Exam General Appearance: WD/WN, no apparent distress Eyes: normal inspection, EOMI, sclerae normal ENT: normal ENT inspection, pharynx normal Neck: supple, no adenopathy, thyroid normal, trachea midline Respiratory/Chest: chest non-tender, no respiratory distress, no accessory muscle use, + rales (Left base) Cardiovascular: regular rate, rhythm, no gallop, no murmur Abdomen: normal bowel sounds, non tender, soft, no organomegaly Extremities: non-tender, no calf tenderness Neurologic/Psychiatric: no motor/sensory deficits, alert Skin: normal color, warm/dry, no rash Lymphatic: no adenopathy Laboratory Results RUN DATE: 12/17/17 [facility] LAB PAGE 1 RUN TIME: 701 Specimen Inquiry PATIENT: ROSLYN RODRIGUEZ LOC: [facility] # : [id number] AGE/SX: 87/F ROOM: N287 REG : 12/15/[address]: Ramakrishna Mayberry MD : [id number] BED: 2 DIS : STATUS: ADM IN TLOC: SPEC #: [id number] REED: 12/15/17 STATUS: RES REQ #: [id number] RECD: 12/15/[address] [facility] [address]: Jaime Tesfaye M.D. SOURCE: BLOOD ENTR: 12/15/17-[address] [facility] [address]: Federico [place] [facility]: ORDERED: BLOOD CULTURE COMMENTS: Comments to [facility] SAME TIME DIFFERENT SITES SET 1 Procedure Result Verified Site BLD CULT Preliminary 12/17/17 NO GROWTH TO DATE. Assessment and Plan 87-year-old female admitted with acute change in mental status and hypoxia, not clear whether she has recurrent pneumonia or whether chest x-ray with findings represent prior episode. Normal procalcitonin level suggests that severe bacterial infection/sepsis unlikely. Will discuss discontinuation of antibiotics tomorrow as long as patient remains afebrile and improved.
[2017-12-17] MEDS: LATANOPROST 0.005% OP SOLN 2.5 ML BTL OPB SCH (20:35)
[2017-12-18] VITALS (11 sets, daily range): BP systolic 117–146; BP diastolic 71–98; PULSE 58–121; TEMP 36.3–37; O2SAT 90–99
[2017-12-18] MEDS: IPRATROPIUM BROMIDE NEB SOLN 0.02% 2.5 ML VIAL INH SCH ×3 (01:45→19:40)
[2017-12-18] MEDS: LEVALBUTEROL 0.63MG/3 ML NEB INH SCH ×3 (01:45→19:40)
[2017-12-18] MEDS: IMIPENEM/CILASTATIN IV 500 MG in D5W 100ML IV SCH (03:19)
[2017-12-18] MEDS: LEVOTHYROXINE 100 MCG TAB PO SCH (06:30)
[2017-12-18] MEDS: ATORVASTATIN 40 MG TAB PO SCH (08:10)
[2017-12-18] MEDS: POTASSIUM CHLORIDE 20 MEQ TABCR PO SCH (08:10)
[2017-12-18] MEDS: OXYBUTYNIN CHLORIDE 5 MG TABCR PO SCH (08:10)
[2017-12-18] MEDS: DILTIAZEM HCL 120 MG EXT REL CAP PO SCH (08:10)
[2017-12-18] MEDS: APIXABAN 2.5 MG TAB PO SCH ×2 (08:10→21:08)
[2017-12-18] MEDS ORDERED: LEVALBUTEROL/IPRATROPIUM NEB INH PRN (11:15)
[2017-12-18] MEDS ORDERED: ETHYL CHLORIDE AER SPR 100 ML CAN EXT ONE (13:00)
[2017-12-18] MEDS ORDERED: BUPIVACAINE 0.5 % 5 MG/1 ML MPF 30ML VIAL INFIL ONE (13:00)
[2017-12-18] MEDS ORDERED: METHYLPREDNISOLONE ACETATE 80 MG/ML VIAL IA ONE (13:00)
[2017-12-18] MEDS ORDERED: ROPIVACAINE 0.5% 5 MG/ML 30 ML VIAL INFIL STA (13:21)
--- NOTE | 2017-12-18 16:14 | Orthopedic Progress Note ---
Orthopedic Progress Note Date of Service December 18, 2017. Subjective Additional Notes: Called by nursing to see patient today for possible left knee treatment. Dr Garrison saw her last night and recommended conservative rx via bracing, pain control, PT, or injection and that the pt would not be a good candidate for TKA. Pt refused injection last night. Pt's , per nursing, arrived and was very demanding that something be done for her knee. I came into the room to see the patient . present. He explained her knee problems have been going on for some time. He states she was bending the knee in October until she went to an inpatient rehab/snf(?) that was supposed to work with her 7 days a week, 3 hours a day.(?) She was admitted in October for respiratory distress. At that time, she was dc'd to home with home health even though this was not recommended by the Medical staff. Pt's was adamant and refused rehab/ snf. He states that she was at [facility] previously and suffered some problems with her right foot requiring surgery in the past. Currently, the patient has a court order for her to be staying at [facility] due to the fact the cannot take care of her.(?) He mentioned this to me briefly. They apparently are no longer going to take her back to due to husbands interference with nursing care there. The would like her knee pain treated. She used to receive Cortisone injections and Synvisc injections in the past from Dr Diop. He told the that prolonged Cortisone injections would likely not help her after a certain time states he noticed that the injections helped her less and less over time. (Unknown when the last injection was) Currently the patient is lying in bed and appears comfortable. When asked, she states she is not having any knee pain currently at rest. I asked her if I could examine her knee and she agreed. Objective calves soft nontender, N/V intact Multiple abrasions noted on the left lower extremity. He knee appears to have some mild swelling compared to the right knee. No erythema. No overt heat to the knee compared to the right knee. She will let me extend the knee. She will let me bend the knee to approx 45 degrees. She has no overt pain but when asked, states "that hurts a little bit". Palpation of the knee causes some mild pain over the patella. Quad tendon appears to be firing and I can appreciate no defects in the extensor mechanism. Date Time Temp Pulse Resp B/P (MAP) Pulse Ox O2 Delivery O2 Flow Rate FiO2 12/18/17 14:54 36.8 58 18 146/82 (103) 93 Room Air 12/18/17 13:15 121 94 12/18/17 12:00 Room Air 12/18/17 08:09 111 145/74 (97) 96 Room Air 12/18/17 08:00 Room Air 12/18/17 07:18 36.4 65 20 144/98 (113) 93 Room Air 12/18/17 07:06 70 20 93 Room Air 12/18/17 05:20 36.3 87 18 145/87 (106) 95 Room Air 12/18/17 04:00 Room Air 12/18/17 01:45 81 20 93 Room Air 12/18/17 00:00 Room Air 12/18/17 00:00 37.0 97 20 117/71 (86) 90 Room Air 12/17/17 20:15 Room Air 12/17/17 20:05 36.4 68 16 148/68 (94) 96 Room Air 12/17/17 19:12 90 18 94 Room Air 12/17/17 16:00 Room Air 12/17/17 15:34 36.5 93 16 155/79 (104) 95 Room Air Additional Notes: Dr Taveras accompanied me to see the patient later today. Pt's not in the room and apparently he had left. Dr Taveras examined the patient and offered her several options that Dr Garrison had. Pt refused injection at this time. Dr Taveras stated he would call her at home to discuss treatment. Dr Taveras attempted to call the patient's after the visit. He states that someone apparently answered but said nothing on the phone and then hung up. Recall was almost the same except made some comment before becoming silent. Both calls witnessed by myself. No further calls attempted. Assessment & Plan Assessment: Severe Tricompartmental Djd Left Knee Plan: Dr Taveras agrees with Dr Garrison. Pt is not a surgical candidate. Celebrex started (200mg po daily) Med Service ok with anti inflammatory use. Pt refused injection again. We will have to discuss this with the patients again tomorrow.
--- NOTE | 2017-12-18 18:41 | Progress Note ---
Internal Med Progress Note Date of Service: December 18, 2017. Provider Documentation: SUBJECTIVE: in room and he wants patient to have left knee shot and also left knee ultrasound patient resting comfortably in the bed denies chest pain or sob no cough afberile 'eating fine OBJECTIVE: Vital Signs-as noted below Exam: General-alert and awake . Not in distress ENT-normal hearing Neck-supple Lungs-cta b/l no wheezing or crackles Heart-s1 and s2 heard regular rate and rhythm,no Murmur Abdomen-soft bowel sounds present non tender no distension Extremities-lower extremity edema present left knee tender Neuro-alert and awake moves extremities Lab data as noted below. ASSESSMENT & PLAN: ACUTE HYPOXIC RESPIRATORY FAILURE, MULTIFACTORIAL DUE TO: PNEUMONIA, LIKELY HCAP COPD EXACERBATION [facility] was hypoxic in ER cxr LLL pneumonia old vs recurrent on PRIMAXIN procalcitonin negative ID on board stopped abx today stable LACTIC ACIDOSIS Did not meet sepsis criteria Lactic acid level 4 now down to 2 Will monitor for signs of sepsis ATRIAL FIBRILLATION Admitted with heart rate in the low 100s likely due to hypoxia, infection, refusing medications Improving on diltiazem for rate control and Eliquis for anticoagulation stable CHRONIC DIASTOLIC CHF Appears euvolemic To Continue furosemide HYPOTHYROIDISM On levothyroxine Left knee pain osteoarthritis seen by ortho and appreciate inputs wants knee shot but patient refusing started on Celebrex DVT PROPHYLAXIS on Eliquis CODE STATUS Patient is a full code as per admission. DISPOSITION Transfer to medical floor plan for placement Case management on board Vital Signs: Date Time Temp Pulse Resp B/P (MAP) Pulse Ox O2 Delivery O2 Flow Rate FiO2 12/18/17 15:30 36.7 84 18 132/73 (92) 99 Room Air 12/18/17 15:30 Room Air 12/18/17 14:54 36.8 58 18 146/82 (103) 93 Room Air 12/18/17 13:15 121 94 12/18/17 12:00 Room Air 12/18/17 08:09 111 145/74 (97) 96 Room Air 12/18/17 08:00 Room Air 12/18/17 07:18 36.4 65 20 144/98 (113) 93 Room Air 12/18/17 07:06 70 20 93 Room Air 12/18/17 05:20 36.3 87 18 145/87 (106) 95 Room Air 12/18/17 04:00 Room Air 12/18/17 01:45 81 20 93 Room Air 12/18/17 00:00 Room Air 12/18/17 00:00 37.0 97 20 117/71 (86) 90 Room Air 12/17/17 20:15 Room Air 12/17/17 20:05 36.4 68 16 148/68 (94) 96 Room Air 12/17/17 19:12 90 18 94 Room Air
--- NOTE | 2017-12-18 20:17 | Infectious Disease Progress Nt ---
Progress Note Date of Service December 18, 2017. Subjective Pt evaluation today including: conversation w/ patient, physical exam, chart review, lab review, review of studies, conversation w/ cyber security consultant, review of inpatient medication list Complaining of left knee pain. Orthopedic consultation noted. No other new complaints. Remains afebrile. All Other Systems: Reviewed and Negative Medications Current Inpatient Medications Medications (Trade) Dose Ordered Sig/Mak Route Start Time Stop Time Status Last Admin Dose Admin Acetaminophen (Tylenol Tab) 650 mg Q4H PRN PO 12/15/17 17:15 01/14/18 17:14 Promethazine HCl 12.5 mg/Sodium Chloride 50.5 ml @ 204 mls/hr Q6H PRN IV 12/15/17 17:15 01/14/18 17:14 Apixaban (Eliquis Tab) 2.5 mg BID PO 12/15/17 21:00 01/14/18 20:59 12/18/17 08:10 2.5 MG Atorvastatin Calcium (Lipitor Tab) 40 mg DAILY PO 12/16/17 09:00 01/15/18 08:59 Bisacodyl (Dulcolax Supp) 10 mg DAILY PRN TN 12/15/17 18:00 01/14/18 17:59 Diltiazem HCl (TIAzac CAP) 120 mg DAILY PO 12/16/17 09:00 01/15/18 08:59 12/18/17 08:10 120 MG Latanoprost (Xalatan Oph Soln) 1 drops HS OPB 12/15/17 21:00 01/14/18 20:59 12/17/17 20:35 1 DROPS Levothyroxine Sodium (Synthroid Tab) 100 mcg DAILYBB PO 12/16/17 06:30 01/15/18 06:29 12/18/17 06:30 100 MCG Magnesium Hydroxide (Milk Of Magnesia Susp) 30 ml DAILY PRN PO 12/15/17 18:00 01/14/18 17:59 Oxybutynin Chloride (Ditropan-Xl Tab) 10 mg DAILY PO 12/16/17 09:00 01/15/18 08:59 Potassium Chloride (Klor-Con Tab) 20 meq DAILY PO 12/16/17 09:00 01/15/18 08:59 Sodium Biphosphate/ Sodium Phosphate (Fleet Enema) 118 ml DAILY PRN TN 12/15/17 18:00 01/14/18 17:59 Prednisone (PredniSONE TAB) 40 mg DAILY PO 12/15/17 19:00 12/20/17 18:59 12/15/17 19:38 40 MG Ipratropium [place] (Atrovent 0.02% 0.5MG/2.5ML Neb) 0.5 mg Q4H PRN INH 12/18/17 11:30 01/17/18 11:29 Levalbuterol (Xopenex 0.63 Mg/ 3 Ml Neb) 0.63 mg Q4H PRN INH 12/18/17 11:30 01/17/18 11:29 Ipratropium [place] (Atrovent 0.02% 0.5MG/2.5ML Neb) 0.5 mg BIDR INH 12/18/17 20:00 01/17/18 19:59 12/18/17 19:40 0.5 MG Levalbuterol (Xopenex 0.63 Mg/ 3 Ml Neb) 0.63 mg BIDR INH 12/18/17 20:00 01/17/18 19:59 12/18/17 19:40 0.63 MG Celecoxib (CeleBREX CAP) 200 mg QAM PO 12/19/17 09:00 01/18/18 08:59 Objective Vital Signs Date Time Temp Pulse Resp B/P (MAP) Pulse Ox O2 Delivery O2 Flow Rate FiO2 12/18/17 19:40 82 18 95 Room Air 12/18/17 15:30 36.7 84 18 132/73 (92) 99 Room Air 12/18/17 15:30 Room Air 12/18/17 14:54 36.8 58 18 146/82 (103) 93 Room Air 12/18/17 13:15 121 94 12/18/17 12:00 Room Air 12/18/17 08:09 111 145/74 (97) 96 Room Air 12/18/17 08:00 Room Air 12/18/17 07:18 36.4 65 20 144/98 (113) 93 Room Air 12/18/17 07:06 70 20 93 Room Air 12/18/17 05:20 36.3 87 18 145/87 (106) 95 Room Air 12/18/17 04:00 Room Air 12/18/17 01:45 81 20 93 Room Air 12/18/17 00:00 Room Air 12/18/17 00:00 37.0 97 20 117/71 (86) 90 Room Air 12/17/17 20:15 Room Air Physical Exam General Appearance: WD/WN, no apparent distress Eyes: normal inspection, EOMI, sclerae normal ENT: normal ENT inspection, pharynx normal Neck: supple, no adenopathy, thyroid normal, trachea midline Respiratory/Chest: chest non-tender, lungs clear, normal breath sounds, no respiratory distress Cardiovascular: regular rate, rhythm, no gallop, no murmur Abdomen: normal bowel sounds, non tender, soft, no organomegaly Extremities: non-tender, no calf tenderness, + pertinent finding (Mild left hand swelling) Neurologic/Psychiatric: alert, oriented x 3 Skin: normal color, warm/dry, no rash Lymphatic: no adenopathy Laboratory Results RUN DATE: 12/17/17 [facility] PAGE 1 RUN TIME: 701 Specimen Inquiry PATIENT: ROSLYN RODRIGUEZ LOC: [facility] # : [id number] AGE/SX: 87/F ROOM: N287 REG : 12/15/[address]: Ramakrishna Mayberry MD : 1930 BED: 2 DIS : STATUS: ADM IN TLOC: SPEC #: [id number] REED: 12/15/17 STATUS: RES REQ #: [id number] RECD: 12/15/[address]: Jaime Tesfaye M.D. 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 Patient Name: ROSLYN RODRIGUEZ Unit Number: [id number] Dictated: 12/17/17957 Transcribed: 12/17/17957 RADHA Printed Date/Time: [~ rep prt dt]/[~ rep prt tm] [~ rep ct labl] - [~ rep ct ivnm] [facility] [place] [id number] Dictated: 12/17/1758 Transcribed: 12/17/17 0958 PAJ Printed Date/Time: [~ rep prt dt]/[~ rep prt tm] [~ rep ct labl] - [~ rep ct ivnm] [~ rep ct add3]] LEFT KNEE 2 VIEWS HISTORY: Left knee pain and swelling. COMPARISON: None. FINDINGS: No acute fracture or dislocation within the left knee. Severe tricompartmental osteoarthritis with [id number] articulation within the medial and patellofemoral compartments. There are large tricompartmental osteophytes. Vascular calcifications are noted. The tip of the proximal femoral prosthesis is identified. Small to moderate knee effusion. Vascular calcifications are noted. There is posterior subcutaneous edema within the knee. IMPRESSION: 1. No acute fracture or dislocation within the left knee. 2. Small to moderate knee effusion. 3. Severe tricompartmental osteoarthritis. Electronically signed by: Marcin Rodríguez M.D. 12/17/2017 10:00 AM Dictated Date/Time: 12/17/2017 9:58 AM The status of this report is Signed. Draft = Not yet reviewed or approved by Radiologist. Signed = Reviewed and approved by Radiologist. <AttendingPhy>Iam Jon MD</AttendingPhy> <FamilyPhy>Bouchra Skinner M.D.</FamilyPhy> <PrimaryPhy>Sarahremy Federico</PrimaryPhy> <UnitNumber> [id number]</UnitNumber> <VisitNumber>[id number]</VisitNumber> <PatientName> MICHAELROSLYN</PatientName> <DateOfBirth>1930</DateOfBirth> < Location>[facility]</Location> <ServiceDate>12/15/17</ServiceDate> <MNE>ESINDI</MNE> <OrderingPhy>Miguel Blank</OrderingPhy> <OrderingPhyMNE>f rep ord dr myers</OrderingPhyMNE> <DictatingPhyMNE>f rep dict dr myers</DictatingPhyMNE> < CCListMNE>f rep ct mne</CCListMNE> <AdmittingPhyMNE>f pt admit dr myers</ AdmittingPhyMNE> <AttendingPhyMNE>f pt attend dr myres</AttendingPhyMNE> <ConsultingPhyMNE>f pt consult dr myers</ConsultingPhyMNE> <FamilyPhyMNE>f pt fam dr myers</FamilyPhyMNE> <OtherPhyMNE>f pt other dr myers</OtherPhyMNE> < PrimaryPhyMNE>f pt prim care dr myers</PrimaryPhyMNE> <ReferringPhyMNE>f pt referring dr myers</ReferringPhyMNE> Assessment and Plan 87-year-old female admitted with acute change in mental status and hypoxia, no obvious pneumonia on imaging studies and procalcitonin normal. Have recommended discontinuation of antibiotics given negative cultures and following patient for recurrent fever or other change in symptoms.
[2017-12-18] MEDS ORDERED: LEVALBUTEROL/IPRATROPIUM NEB INH SCH (21:00)
[2017-12-18] MEDS: LATANOPROST 0.005% OP SOLN 2.5 ML BTL OPB SCH (21:08)
[2017-12-19] MEDS: LEVOTHYROXINE 100 MCG TAB PO SCH (05:42)
[2017-12-19 07:08] VITALS: PULSE 78; O2SAT 92
[2017-12-19] MEDS: IPRATROPIUM BROMIDE NEB SOLN 0.02% 2.5 ML VIAL INH SCH ×2 (07:08→19:06)
[2017-12-19] MEDS: LEVALBUTEROL 0.63MG/3 ML NEB INH SCH ×2 (07:08→19:06)
[2017-12-19 07:36] VITALS: BP 142/76; PULSE 95; TEMP 36.5; O2SAT 95
[2017-12-19] MEDS: POTASSIUM CHLORIDE 20 MEQ TABCR PO SCH (09:00)
[2017-12-19] MEDS: CeleBREX 200 MG CAP PO SCH (09:00)
[2017-12-19] MEDS: DILTIAZEM HCL 120 MG EXT REL CAP PO SCH (09:00)
[2017-12-19] MEDS: ATORVASTATIN 40 MG TAB PO SCH (09:00)
[2017-12-19] MEDS: APIXABAN 2.5 MG TAB PO SCH ×2 (09:00→20:39)
[2017-12-19] MEDS: OXYBUTYNIN CHLORIDE 5 MG TABCR PO SCH (09:00)
[2017-12-19 12:38] LABS: CREATININE 0.87 mg/dl (0.60-1.20)
[2017-12-19 15:04] VITALS: BP 153/80; PULSE 79; TEMP 36.8; O2SAT 93
--- NOTE | 2017-12-19 17:00 | Progress Note ---
Internal Med Progress Note Date of Service: December 19, 2017. Provider Documentation: SUBJECTIVE: in room and he wants patient to have left knee shot which patient refusing when she is alone patient resting comfortably on the chair denies chest pain or sob eating ok OBJECTIVE: Vital Signs-as noted below Exam: General-alert and awake . Not in distress ENT-normal hearing Neck-supple Lungs-cta b/l no wheezing or crackles Heart-s1 and s2 heard regular rate and rhythm,no Murmur Abdomen-soft bowel sounds present non tender no distension Extremities-lower extremity edema present left knee tender Neuro-alert and awake moves extremities Lab data as noted below. ASSESSMENT & PLAN: ACUTE HYPOXIC RESPIRATORY FAILURE, MULTIFACTORIAL DUE TO: PNEUMONIA, LIKELY HCAP COPD EXACERBATION Was on Levaquin at the residential facility was hypoxic in ER cxr LLL pneumonia old vs recurrent on PRIMAXIN procalcitonin negative ID on board stopped abx today stable currently LACTIC ACIDOSIS Did not meet sepsis criteria Lactic acid level 4 now down to 2 Will monitor for signs of sepsis stable ATRIAL FIBRILLATION Admitted with heart rate in the low 100s likely due to hypoxia, infection, refusing medications Improving on diltiazem for rate control and Eliquis for anticoagulation stable CHRONIC DIASTOLIC CHF Appears euvolemic To Continue furosemide HYPOTHYROIDISM On levothyroxine Left knee pain osteoarthritis seen by ortho and appreciate inputs wants knee shot but patient refusing started on Celebrex DVT PROPHYLAXIS on Eliquis CODE STATUS Patient is a full code as per admission. DISPOSITION Transfer to medical floor plan for placement-await placement Case management on board Vital Signs: Date Time Temp Pulse Resp B/P (MAP) Pulse Ox O2 Delivery O2 Flow Rate FiO2 12/19/17 15:04 36.8 79 18 153/80 (104) 93 Room Air 12/19/17 07:37 Room Air 12/19/17 07:36 36.5 95 18 142/76 (98) 95 Room Air 12/19/17 07:08 78 18 92 Room Air 12/19/17 00:00 Room Air 12/18/17 22:53 36.8 84 17 125/72 (89) 99 Room Air 12/18/17 19:40 82 18 95 Room Air Lab Results: Results Past 24 Hours Test 12/19/17 11:59 Range/Units Creatinine 0.87 0.60-1.20 mg/dl Est Creatinine Clear Calc Drug Dose 54.5 ml/min Estimated GFR () 70.4 Estimated GFR (Non- 60.7
[2017-12-19 19:07] VITALS: PULSE 96; O2SAT 91
[2017-12-19] MEDS: LATANOPROST 0.005% OP SOLN 2.5 ML BTL OPB SCH (20:40)
[2017-12-19 22:59] VITALS: BP 126/69; PULSE 97; TEMP 36.4; O2SAT 92
[2017-12-20] MEDS: LEVOTHYROXINE 100 MCG TAB PO SCH (06:00)
[2017-12-20] MEDS: IPRATROPIUM BROMIDE NEB SOLN 0.02% 2.5 ML VIAL INH SCH ×2 (07:00→19:03)
[2017-12-20 07:01] VITALS: PULSE 92; O2SAT 93
[2017-12-20] MEDS: LEVALBUTEROL 0.63MG/3 ML NEB INH SCH ×2 (07:01→19:03)
[2017-12-20 07:31] VITALS: BP 129/74; PULSE 98; TEMP 36.6; O2SAT 94
[2017-12-20] MEDS: APIXABAN 2.5 MG TAB PO SCH ×2 (08:54→21:05)
[2017-12-20] MEDS: ATORVASTATIN 40 MG TAB PO SCH (08:54)
[2017-12-20] MEDS: POTASSIUM CHLORIDE 20 MEQ TABCR PO SCH (08:54)
[2017-12-20] MEDS: DILTIAZEM HCL 120 MG EXT REL CAP PO SCH (08:57)
[2017-12-20] MEDS: CeleBREX 200 MG CAP PO SCH (08:57)
[2017-12-20] MEDS: OXYBUTYNIN CHLORIDE 5 MG TABCR PO SCH (08:57)
[2017-12-20 15:10] VITALS: BP 146/87; PULSE 101; TEMP 36.6; O2SAT 92
[2017-12-20 16:40] VITALS: O2SAT 92
--- NOTE | 2017-12-20 18:52 | Progress Note ---
Internal Med Progress Note Date of Service: December 20, 2017. Provider Documentation: SUBJECTIVE: sitting on the chair comfortably denies pain denies sob afebrile today seems pleasant OBJECTIVE: Vital Signs-as noted below Exam: General-alert and awake . Not in distress ENT-normal hearing Neck-supple Lungs-cta b/l no wheezing or crackles Heart-s1 and s2 heard regular rate and rhythm,no Murmur Abdomen-soft bowel sounds present non tender no distension Extremities-lower extremity edema present left knee tender Neuro-alert and awake moves extremities Lab data as noted below. ASSESSMENT & PLAN: Patient was recently admitted to [facility] 11/05 through 11/17 for pneumonia and atrial fibrillation. At that time it was highly advised for the patient to go to a nursing facility however and patient refused and patient was discharged home. Since that time, temporary court order was obtained to arrange for patient to be placed in a fci. Follow-up court order for permanent guardianship is scheduled for later this month.Patient was at [facility] and came with AMS and hypoxia? . Was treated for possible recurrent pneumonia. BUT ID recommended to stop abx as procalcitonin normal and mostly old infiltrates on cxr. Doing fine off of abx. wants patient to have left knee shot but patient refused. is somewhat demanding.Plan for placement though again and patient wants to go home.Awaiting placement ACUTE HYPOXIC RESPIRATORY FAILURE, MULTIFACTORIAL DUE TO: PNEUMONIA, LIKELY HCAP COPD EXACERBATION Was on Levaquin at the [facility] facility was hypoxic in ER cxr LLL pneumonia old vs recurrent on PRIMAXIN procalcitonin negative ID on board stopped abx stable currently continue to monitor LACTIC ACIDOSIS Did not meet sepsis criteria Lactic acid level 4 now down to 2 Will monitor for signs of sepsis stable ATRIAL FIBRILLATION Admitted with heart rate in the low 100s likely due to hypoxia, infection, refusing medications Improving on diltiazem and Toprol xl for rate control and Eliquis for anticoagulation stable HTN supposed to be on Cardizem, Toprol xl and lisinopril currently on Cardizem and Toprol xl( just starting ) will monitor CHRONIC DIASTOLIC CHF Appears euvolemic To Continue furosemide HYPOTHYROIDISM On levothyroxine Left knee pain osteoarthritis seen by ortho and appreciate inputs wants knee shot but patient refusing started on Celebrex appreciate ortho consultation DVT PROPHYLAXIS on Eliquis CODE STATUS Patient is a full code as per admission. DISPOSITION Transfer to medical floor plan for placement-await placement patient and refusing placement Case management on board Vital Signs: Date Time Temp Pulse Resp B/P (MAP) Pulse Ox O2 Delivery O2 Flow Rate FiO2 12/20/17 19:04 90 18 94 Room Air 12/20/17 16:40 92 Room Air 12/20/17 15:10 36.6 101 16 146/87 (106) 92 Room Air 12/20/17 07:33 Room Air 12/20/17 07:31 36.6 98 18 129/74 (92) 94 Room Air 12/20/17 07:01 92 18 93 Room Air 12/20/17 00:13 Room Air 12/19/17 22:59 36.4 97 17 126/69 (88) 92 Room Air
[2017-12-20 19:04] VITALS: PULSE 90; O2SAT 94
[2017-12-20] MEDS ORDERED: METO50TA8 PO (20:34)
[2017-12-20] MEDS ORDERED: ASPI-232 PO (20:34)
[2017-12-20] MEDS ORDERED: LSN10 PO (20:34)
[2017-12-20] MEDS: LATANOPROST 0.005% OP SOLN 2.5 ML BTL OPB SCH (21:06)
[2017-12-20 23:12] VITALS: BP 155/84; PULSE 87; TEMP 36.6; O2SAT 95
[2017-12-21] MEDS: LEVOTHYROXINE 100 MCG TAB PO SCH (06:02)
--- NOTE | 2017-12-21 06:13 | Orthopedic Progress Note ---
Orthopedic Progress Note Date of Service December 21, 2017. Subjective Additional Notes: patient resting comfortably, states "its there" when asked about her knee pain. denies numbness/tingling in her extremities Objective calves soft nontender, N/V intact, toes mobile mild effusion, mild diffuse tenderness mostly over medial compartment. no erythema or warmth noted. Date Time Temp Pulse Resp B/P (MAP) Pulse Ox O2 Delivery O2 Flow Rate FiO2 12/20/17 23:12 36.6 87 17 155/84 (107) 95 Room Air 12/20/17 19:45 Room Air 12/20/17 19:04 90 18 94 Room Air 12/20/17 16:40 92 Room Air 12/20/17 15:10 36.6 101 16 146/87 (106) 92 Room Air 12/20/17 07:33 Room Air 12/20/17 07:31 36.6 98 18 129/74 (92) 94 Room Air 12/20/17 07:01 92 18 93 Room Air Assessment & Plan Assessment: Severe Tricompartmental Djd Left Knee Plan: discussed with patient this am again regarding cortisone injection, she stated they never worked before. Pt not present during exam however. She has been started on Celebrex, will see how she responds. can continue with other conservative measures including PT, bracing, Tylenol if ok with medicine. Dr Taveras and Dr Garrison agreed patient not a surgical candidate, I did mention one alternative injection, viscosupplementation, would have to be done as an outpatient. At this point will sign off on patient and will continue with conservative measures, please feel free to contact us if she would like to proceed the cortisone injection.
[2017-12-21 06:55] VITALS: PULSE 73; O2SAT 90
[2017-12-21] MEDS: LEVALBUTEROL 0.63MG/3 ML NEB INH SCH ×2 (06:55→19:39)
[2017-12-21] MEDS: IPRATROPIUM BROMIDE NEB SOLN 0.02% 2.5 ML VIAL INH SCH ×2 (06:55→19:39)
[2017-12-21 07:13] VITALS: BP 129/80; PULSE 82; TEMP 36.4; O2SAT 97
[2017-12-21] MEDS: ASPIRIN 81 MG ECTAB PO SCH (08:34)
[2017-12-21] MEDS: DILTIAZEM HCL 120 MG EXT REL CAP PO SCH (08:35)
[2017-12-21] MEDS: METOPROLOL SUCC 50MG EXT REL TAB PO SCH (08:35)
[2017-12-21] MEDS: OXYBUTYNIN CHLORIDE 5 MG TABCR PO SCH (08:35)
[2017-12-21] MEDS: POTASSIUM CHLORIDE 20 MEQ TABCR PO SCH (08:36)
[2017-12-21] MEDS: ATORVASTATIN 40 MG TAB PO SCH (08:36)
[2017-12-21] MEDS: APIXABAN 2.5 MG TAB PO SCH ×2 (08:36→20:31)
[2017-12-21] MEDS: CeleBREX 200 MG CAP PO SCH (08:39)
[2017-12-21 15:09] VITALS: BP 123/75; PULSE 81; TEMP 36.5; O2SAT 94
[2017-12-21 19:39] VITALS: PULSE 84; O2SAT 93
[2017-12-21] MEDS: LATANOPROST 0.005% OP SOLN 2.5 ML BTL OPB SCH (20:32)
--- NOTE | 2017-12-21 21:49 | Progress Note ---
Medicine Progress Note Date & Time of Visit: December 21, 2017 at 15:46. Subjective 87 yo F admitted to the hospital for shortness of breath thought 2/2 persistent/ recurring pneumonia (recently admitted for this). She came from the [facility] as there is a court order that she may not return home as her cannot care for her. ID was consulted and recommended against further abx as infiltrates appeared chronic, and patient has done well off these. She is oxygenating well on room air. Although she is alert and oriented to 3 today, she has difficulty recalling events and expect some issues with memory loss here that are chronic. She has significant L knee stiffness and pain with movement but is declining cortisone injection or Celebrex therapy offered by Ortho. Both she and her are OK with Synvisc injection but want this performed in the hospital. She and her both report they are going home at discharge. Case Management is working with them on this issue. Objective Last 8 Hrs Date Time Temp Pulse Resp B/P (MAP) Pulse Ox O2 Delivery O2 Flow Rate FiO2 12/21/17 15:09 36.5 81 18 123/75 (91) 94 Room Air Physical Exam: GEN: obese, in no acute distress, alert and oriented HEENT: NC/AT, PERRL, normal sclerae CARDIO: reg rate, S1/2 heard without m/g/r LUNGS: CTA bilaterally, no crackles, rales or wheezes, good diaphragmatic excursion ABD: soft, non-tender, non-distended, no rebound or guarding EXTREMITY: RP and DP palpable 2+ bilat, no LE swelling or edema, extremities are warm and well-perfused. Limited flexion of L knee. No effusion noted. NEURO: CN 2-12 grossly intact MUSC: 5/5 strength throughout, no gross focal deficits SKIN: warm and dry Laboratory Results: 12/16/17 10:19 12/16/17 10:19 12/19/17 11:59 Test 12/15/17 14:21 12/15/17 15:10 12/16/17 10:19 12/16/17 16:06 Immature Granulocyte % (Auto) 0.2 % White Blood Count 5.10 K/uL (4.8-10.8) Red Blood Count 3.86 M/uL (4.2-5.4) 3.81 M/uL (4.2-5.4) Hemoglobin 12.0 g/dL (12.0-16.0) Hematocrit 36.3 % (37-47) Mean Corpuscular Volume 94.0 fL (80-100) 93.7 fL (80-100) Mean Corpuscular Hemoglobin 31.1 pg (25-34) 31.5 pg (25-34) Mean Corpuscular Hemoglobin Concent 33.1 g/dl (32-36) 33.6 g/dl (32-36) Platelet Count 358 K/uL (130-400) Mean Platelet Volume 8.2 fL (7.4-10.4) 8.0 fL (7.4-10.4) Neutrophils (%) (Auto) 89.0 % Lymphocytes (%) (Auto) 7.1 % Monocytes (%) (Auto) 3.7 % Eosinophils (%) (Auto) 0.0 % Basophils (%) (Auto) 0.0 % Neutrophils # (Auto) 4.54 K/uL (1.4-6.5) Lymphocytes # (Auto) 0.36 K/uL (1.2-3.4) Monocytes # (Auto) 0.19 K/uL (0.11-0.59) Eosinophils # (Auto) 0.00 K/uL (0-0.5) Basophils # (Auto) 0.00 K/uL (0-0.2) Immature Granulocyte # (Auto) 0.01 K/uL (0.00-0.02) Prothrombin Time 10.2 SECONDS (9.0-12.0) Prothromb Time International Ratio 1.0 (0.9-1.1) Venous Blood pH 7.35 (7.36-7.41) Venous Blood Partial Pressure CO2 57 mmHg (38.0-50.0) Venous Blood Partial Pressure O2 33 mmHg Venous Blood HCO3 31 mmol/L Venous Blood Oxygen Saturation < 60.0 % Venous Blood Base Excess 4.0 mEq/L Magnesium Level 2.0 mg/dl (1.8-2.4) Total Bilirubin 0.4 mg/dl (0.2-1) Direct Bilirubin 0.1 mg/dl (0-0.2) Aspartate Amino Transf (AST/SGOT) 15 U/L (15-37) Alanine Aminotransferase (ALT/SGPT) 20 U/L (12-78) Alkaline Phosphatase 89 U/L (45-117) Troponin I < 0.015 ng/ml (0-0.045) Pro-B-Type Natriuretic Peptide 2004 pg/ml (0-1800) Total Protein 6.8 gm/dl (6.4-8.2) Albumin 2.8 gm/dl (3.4-5.0) Lipase 62 U/L (73-393) Digoxin Level 0.3 ng/ml (0.8-2.0) Urine Color YELLOW Urine Appearance CLEAR (CLEAR) Urine pH 5.5 (4.5-7.5) Urine Specific [place] 1.012 (1.000-1.030) Urine Protein NEG (NEG) Urine Glucose (UA) NEG (NEG) Urine Ketones NEG (NEG) Urine Occult Blood NEG (NEG) Urine Nitrite NEG (NEG) Urine Bilirubin NEG (NEG) Urine Urobilinogen NEG (NEG) Urine Leukocyte Esterase NEG (NEG) Urine WBC (Auto) 0 /hpf (0-5) Urine RBC (Auto) 0-4 /hpf (0-4) Urine Hyaline Casts (Auto) 0 /lpf (0-5) Urine Epithelial Cells (Auto) 0-5 /lpf (0-5) Urine Bacteria (Auto) NEG (NEG) RDW Standard Deviation 51.8 fL (36.4-46.3) RDW Coefficient of Variation 15.2 % (11.5-14.5) Anion Gap 5.0 mmol/L (3-11) BUN/Creatinine Ratio 22.3 (10-20) Calcium Level 9.2 mg/dl (8.5-10.1) Procalcitonin 0.06 ng/ml (0-0.5) Lactic Acid Level 2.3 mmol/L (0.4-2.0) Test 12/19/17 11:59 Est Creatinine Clear Calc Drug Dose 54.5 ml/min Estimated GFR () 70.4 Estimated GFR (Non- 60.7 Date/Time Source Procedure Growth Status 12/15/17 14:21 Blood Blood Culture - Final NO GROWTH Complete 12/15/17 20:27 Nasal MRSA DNA Surveillance Screen - Final Specimen Negative for MRSA by DNA Probe Complete Assessment & Plan 87 yo F admitted to the hospital for shortness of breath thought 2/2 persistent/ recurring pneumonia (recently admitted for this). She came from the [facility] as there is a court order that she may not return home as her cannot care for her. ID was consulted and recommended against further abx as infiltrates appeared chronic, and patient has done well off these. She is oxygenating well on room air. Although she is alert and oriented to 3 today, she has difficulty recalling events and expect some issues with memory loss here that are chronic. She has significant L knee stiffness and pain with movement but is declining cortisone injection or Celebrex therapy offered by Ortho. Both she and her are OK with Synvisc injection but want this performed in the hospital. She and her both report they are going home at discharge. Case Management is working with them on this issue. 1. Hypoxia-resolved. Recent HCAP has been adequately treated. No further abx per ID at this time. Repeat CXR in 4-6 weeks to ensure radiographic resolution. Pt feels breathing treatments are helping her so will continue these. 2. Chronic atrial fibrillation-rate controlled with Diltiazem and Toprol. Apixiban for AC therapy. 3. HTN-cont Toprol and Cardizem, lisinopril not continued. will ensure she is on lisinopril as outpatient prior to restarting. 4. chronic diastolic heart failure-compensated. 5. Hypothyroidism-cont Synthroid 6. Left knee pain 2/2 severe OA-seen by Ortho and offered cortisone injection and Celebrex, both of which patient is declining. Amenable to Synvisc injection , however, this was recommended as outpatient. Will discuss with Ortho. DVT proph- Apixiban Full Code Dispo-uncertain at this time. adamantly refuses senior care,however, there is a court order mandating this. Appreciate Case Management's assistance with this. Blaire Griggs DO [facility] Hospitalist Current Inpatient Medications: Current Inpatient Medications Medications (Trade) Dose Ordered Sig/Mak Route Start Time Stop Time Status Last Admin Dose Admin Acetaminophen (Tylenol Tab) 650 mg Q4H PRN PO 12/15/17 17:15 01/14/18 17:14 Promethazine HCl 12.5 mg/Sodium Chloride 50.5 ml @ 204 mls/hr Q6H PRN IV 12/15/17 17:15 01/14/18 17:14 Apixaban (Eliquis Tab) 2.5 mg BID PO 12/15/17 21:00 01/14/18 20:59 12/21/17 08:36 2.5 MG Atorvastatin Calcium (Lipitor Tab) 40 mg DAILY PO 12/16/17 09:00 01/15/18 08:59 12/21/17 08:36 40 MG Bisacodyl (Dulcolax Supp) 10 mg DAILY PRN [place] 12/15/17 18:00 01/14/18 17:59 Diltiazem HCl (TIAzac CAP) 120 mg DAILY PO 12/16/17 09:00 01/15/18 08:59 12/21/17 08:35 120 MG Latanoprost (Xalatan Oph Soln) 1 drops HS OPB 12/15/17 21:00 01/14/18 20:59 12/20/17 21:06 1 DROPS Levothyroxine Sodium (Synthroid Tab) 100 mcg DAILYBB PO 12/16/17 06:30 01/15/18 06:29 12/21/17 06:02 100 MCG Magnesium Hydroxide (Milk Of Magnesia Susp) 30 ml DAILY PRN PO 12/15/17 18:00 01/14/18 17:59 Oxybutynin Chloride (Ditropan-Xl Tab) 10 mg DAILY PO 12/16/17 09:00 01/15/18 08:59 Potassium Chloride (Klor-Con Tab) 20 meq DAILY PO 12/16/17 09:00 01/15/18 08:59 12/21/17 08:36 20 MEQ Sodium Biphosphate/ Sodium Phosphate (Fleet Enema) 118 ml DAILY PRN MS 12/15/17 18:00 01/14/18 17:59 Ipratropium [place] (Atrovent 0.02% 0.5MG/2.5ML Neb) 0.5 mg Q4H PRN INH 12/18/17 11:30 01/17/18 11:29 Levalbuterol (Xopenex 0.63 Mg/ 3 Ml Neb) 0.63 mg Q4H PRN INH 12/18/17 11:30 01/17/18 11:29 Ipratropium [place] (Atrovent 0.02% 0.5MG/2.5ML Neb) 0.5 mg BIDR INH 12/18/17 20:00 01/17/18 19:59 12/21/17 06:55 0.5 MG Levalbuterol (Xopenex 0.63 Mg/ 3 Ml Neb) 0.63 mg BIDR INH 12/18/17 20:00 01/17/18 19:59 12/21/17 06:55 0.63 MG Celecoxib (CeleBREX CAP) 200 mg QAM PO 12/19/17 09:00 01/18/18 08:59 Metoprolol Succinate (Toprol Xl Tab) 50 mg QAM PO 12/21/17 09:00 01/20/18 08:59 12/21/17 08:35 50 MG Aspirin (Ecotrin Tab) 81 mg DAILY PO 12/21/17 09:00 01/20/18 08:59 12/21/17 08:34 81 MG
[2017-12-21 23:30] VITALS: BP 138/79; PULSE 75; TEMP 36.5; O2SAT 94
[2017-12-22] VITALS (7 sets, daily range): BP systolic 109–139; BP diastolic 66–84; PULSE 62–92; TEMP 36.4–36.6; O2SAT 93–95
[2017-12-22] MEDS: LEVOTHYROXINE 100 MCG TAB PO SCH (05:32)
[2017-12-22] MEDS: LEVALBUTEROL 0.63MG/3 ML NEB INH SCH ×2 (07:13→19:06)
[2017-12-22] MEDS: IPRATROPIUM BROMIDE NEB SOLN 0.02% 2.5 ML VIAL INH SCH ×2 (07:13→19:06)
[2017-12-22] MEDS: ASPIRIN 81 MG ECTAB PO SCH ×2 (12:02→15:26)
[2017-12-22] MEDS: ATORVASTATIN 40 MG TAB PO SCH ×2 (12:02→15:24)
[2017-12-22] MEDS: DILTIAZEM HCL 120 MG EXT REL CAP PO SCH ×2 (12:02→15:25)
[2017-12-22] MEDS: APIXABAN 2.5 MG TAB PO SCH ×2 (12:02→20:28)
[2017-12-22] MEDS: CeleBREX 200 MG CAP PO SCH ×2 (12:02→15:25)
[2017-12-22] MEDS: POTASSIUM CHLORIDE 20 MEQ TABCR PO SCH ×2 (12:02→15:25)
[2017-12-22] MEDS: METOPROLOL SUCC 50MG EXT REL TAB PO SCH ×2 (12:02→15:24)
[2017-12-22] MEDS: OXYBUTYNIN CHLORIDE 5 MG TABCR PO SCH ×2 (12:02→15:24)
[2017-12-22] MEDS ORDERED: TRAMADOL HCL 50 MG TAB PO PRN (15:15)
[2017-12-22] MEDS ORDERED: ACETAMINOPHEN 325 MG TAB PO PRN (17:00)
--- NOTE | 2017-12-22 17:08 | Progress Note ---
Medicine Progress Note Date & Time of Visit: December 22, 2017 at 15:04. Subjective Today, she declines all lab work and medication administration this morning and when asked why she stated that she did not think she was supposed to take it. Since her has arrived she has agreed to take her medications including Celebrex, which she had declined in the last couple days. She continues to have left knee stiffness and pain with movement but is declining cortisone injection offered by orthopedics. Her is fixated on her getting a Synvisc injection here in the hospital which is typically offered as outpatient only. She reports that she is eating well, but she cannot ambulate. She appears emotionally distressed and frustrated and her continues to go on about prior facilities and poor treatment and is very argumentative with staff or recommendations. Objective Last 8 Hrs Date Time Temp Pulse Resp B/P (MAP) Pulse Ox O2 Delivery O2 Flow Rate FiO2 12/22/17 07:50 Room Air 12/22/17 07:33 36.6 83 18 128/84 (99) 95 Room Air 12/22/17 07:14 70 16 93 Room Air Physical Exam: GEN: obese, in no acute distress, alert and oriented HEENT: NC/AT, PERRL, normal sclerae CARDIO: reg rate, S1/2 heard without m/g/r LUNGS: CTA bilaterally, no crackles, rales or wheezes, good diaphragmatic excursion ABD: soft, non-tender, non-distended, no rebound or guarding EXTREMITY: RP and DP palpable 2+ bilat, no LE swelling or edema, extremities are warm and well-perfused. Limited flexion of L knee. No effusion noted. NEURO: CN 2-12 grossly intact MUSC: 5/5 strength throughout, no gross focal deficits SKIN: warm and dry Laboratory Results: 12/16/17 10:19 12/16/17 10:19 12/19/17 11:59 Test 12/15/17 14:21 12/15/17 15:10 12/16/17 10:19 12/16/17 16:06 Immature Granulocyte % (Auto) 0.2 % White Blood Count 5.10 K/uL (4.8-10.8) Red Blood Count 3.86 M/uL (4.2-5.4) 3.81 M/uL (4.2-5.4) Hemoglobin 12.0 g/dL (12.0-16.0) Hematocrit 36.3 % (37-47) Mean Corpuscular Volume 94.0 fL (80-100) 93.7 fL (80-100) Mean Corpuscular Hemoglobin 31.1 pg (25-34) 31.5 pg (25-34) Mean Corpuscular Hemoglobin Concent 33.1 g/dl (32-36) 33.6 g/dl (32-36) Platelet Count 358 K/uL (130-400) Mean Platelet Volume 8.2 fL (7.4-10.4) 8.0 fL (7.4-10.4) Neutrophils (%) (Auto) 89.0 % Lymphocytes (%) (Auto) 7.1 % Monocytes (%) (Auto) 3.7 % Eosinophils (%) (Auto) 0.0 % Basophils (%) (Auto) 0.0 % Neutrophils # (Auto) 4.54 K/uL (1.4-6.5) Lymphocytes # (Auto) 0.36 K/uL (1.2-3.4) Monocytes # (Auto) 0.19 K/uL (0.11-0.59) Eosinophils # (Auto) 0.00 K/uL (0-0.5) Basophils # (Auto) 0.00 K/uL (0-0.2) Immature Granulocyte # (Auto) 0.01 K/uL (0.00-0.02) Prothrombin Time 10.2 SECONDS (9.0-12.0) Prothromb Time International Ratio 1.0 (0.9-1.1) Venous Blood pH 7.35 (7.36-7.41) Venous Blood Partial Pressure CO2 57 mmHg (38.0-50.0) Venous Blood Partial Pressure O2 33 mmHg Venous Blood HCO3 31 mmol/L Venous Blood Oxygen Saturation < 60.0 % Venous Blood Base Excess 4.0 mEq/L Magnesium Level 2.0 mg/dl (1.8-2.4) Total Bilirubin 0.4 mg/dl (0.2-1) Direct Bilirubin 0.1 mg/dl (0-0.2) Aspartate Amino Transf (AST/SGOT) 15 U/L (15-37) Alanine Aminotransferase (ALT/SGPT) 20 U/L (12-78) Alkaline Phosphatase 89 U/L (45-117) Troponin I < 0.015 ng/ml (0-0.045) Pro-B-Type Natriuretic Peptide 2004 pg/ml (0-1800) Total Protein 6.8 gm/dl (6.4-8.2) Albumin 2.8 gm/dl (3.4-5.0) Lipase 62 U/L (73-393) Digoxin Level 0.3 ng/ml (0.8-2.0) Urine Color YELLOW Urine Appearance CLEAR (CLEAR) Urine pH 5.5 (4.5-7.5) Urine Specific [place] 1.012 (1.000-1.030) Urine Protein NEG (NEG) Urine Glucose (UA) NEG (NEG) Urine Ketones NEG (NEG) Urine Occult Blood NEG (NEG) Urine Nitrite NEG (NEG) Urine Bilirubin NEG (NEG) Urine Urobilinogen NEG (NEG) Urine Leukocyte Esterase NEG (NEG) Urine WBC (Auto) 0 /hpf (0-5) Urine RBC (Auto) 0-4 /hpf (0-4) Urine Hyaline Casts (Auto) 0 /lpf (0-5) Urine Epithelial Cells (Auto) 0-5 /lpf (0-5) Urine Bacteria (Auto) NEG (NEG) RDW Standard Deviation 51.8 fL (36.4-46.3) RDW Coefficient of Variation 15.2 % (11.5-14.5) Anion Gap 5.0 mmol/L (3-11) BUN/Creatinine Ratio 22.3 (10-20) Calcium Level 9.2 mg/dl (8.5-10.1) Procalcitonin 0.06 ng/ml (0-0.5) Lactic Acid Level 2.3 mmol/L (0.4-2.0) Test 12/19/17 11:59 Est Creatinine Clear Calc Drug Dose 54.5 ml/min Estimated GFR () 70.4 Estimated GFR (Non- 60.7 Date/Time Source Procedure Growth Status 12/15/17 14:21 Blood Blood Culture - Final NO GROWTH Complete 12/15/17 20:27 Nasal MRSA DNA Surveillance Screen - Final Specimen Negative for MRSA by DNA Probe Complete Last 24 Hours Test 12/22/17 04:44 Assessment & Plan 87 yo F admitted to the hospital for shortness of breath thought 2/2 persistent/ recurring pneumonia (recently admitted for this). She came from the [facility] as there is a court order that she may not return home as her cannot care for her. ID was consulted and recommended against further abx as infiltrates appeared chronic, and patient has done well off these. She is oxygenating well on room air. Although she is alert and oriented to 3, she has difficulty recalling events and expect some issues with memory loss here that are chronic. She declines all lab work and medication administration this morning and when asked why she stated that she did not think she was supposed to take it. Since her has arrived she has agreed to take her medications including Celebrex, which she had declined in the last couple days. She continues to have left knee stiffness and pain with movement but is declining cortisone injection offered by orthopedics. Her is fixated on her getting a Synvisc injection here in the hospital which is typically offered as outpatient only. She reports that she is eating well, but she cannot ambulate. She appears emotionally distressed and frustrated and her continues to go on about prior facilities and poor treatment and is very argumentative with staff or recommendations. 1. Left knee pain 2/2 severe OA-seen by Ortho and offered cortisone injection and Celebrex, both of which patient is declining. Amenable to Synvisc injection , however, this was recommended as outpatient. Will discuss with Ortho. 2. Hypoxia-resolved. Recent HCAP has been adequately treated. No further abx per ID at this time. Repeat CXR in 4-6 weeks to ensure radiographic resolution. Pt feels breathing treatments are helping her so will continue these. 3. Chronic atrial fibrillation-rate controlled with Diltiazem and Toprol. Apixiban for AC therapy. 4. HTN-cont Toprol and Cardizem, lisinopril not continued. As patient and her appear distressed and upset as they did yesterday, and her BP is controlled, will cont to hold this until can verify that she is actually taking it as outpatient. 5. chronic diastolic heart failure-compensated. 6. Hypothyroidism-cont Synthroid DVT proph- Apixiban Full Code Dispo-uncertain at this time. adamantly refuses usp,however, there is a court order mandating this. Appreciate Case Management's assistance with new placement now that [facility] is not an option. Blaire Griggs DO [facility] Hospitalist Current Inpatient Medications: Current Inpatient Medications Medications (Trade) Dose Ordered Sig/Mak Route Start Time Stop Time Status Last Admin Dose Admin Acetaminophen (Tylenol Tab) 650 mg Q4H PRN PO 12/15/17 17:15 01/14/18 17:14 Promethazine HCl 12.5 mg/Sodium Chloride 50.5 ml @ 204 mls/hr Q6H PRN IV 12/15/17 17:15 01/14/18 17:14 Apixaban (Eliquis Tab) 2.5 mg BID PO 12/15/17 21:00 01/14/18 20:59 12/21/17 20:31 2.5 MG Atorvastatin Calcium (Lipitor Tab) 40 mg DAILY PO 12/16/17 09:00 01/15/18 08:59 12/21/17 08:36 40 MG Bisacodyl (Dulcolax Supp) [address] 12/15/17 18:00 01/14/18 17:59 Diltiazem HCl (TIAzac CAP) 120 mg DAILY PO 12/16/17 09:00 01/15/18 08:59 12/21/17 08:35 120 MG Latanoprost (Xalatan Oph Soln) 1 drops HS OPB 12/15/17 21:00 01/14/18 20:59 12/21/17 20:32 1 DROPS Levothyroxine Sodium (Synthroid Tab) 100 mcg DAILYBB PO 12/16/17 06:30 01/15/18 06:29 12/22/17 05:32 100 MCG Magnesium Hydroxide (Milk Of Magnesia Susp) 30 ml DAILY PRN PO 12/15/17 18:00 01/14/18 17:59 Oxybutynin Chloride (Ditropan-Xl Tab) 10 mg DAILY PO 12/16/17 09:00 01/15/18 08:59 Potassium Chloride (Klor-Con Tab) 20 meq DAILY PO 12/16/17 09:00 01/15/18 08:59 12/21/17 08:36 20 MEQ Sodium Biphosphate/ Sodium Phosphate (Fleet Enema) [address] 12/15/17 18:00 01/14/18 17:59 Ipratropium [place] (Atrovent 0.02% 0.5MG/2.5ML Neb) 0.5 mg Q4H PRN INH 12/18/17 11:30 01/17/18 11:29 Levalbuterol (Xopenex 0.63 Mg/ 3 Ml Neb) 0.63 mg Q4H PRN INH 12/18/17 11:30 01/17/18 11:29 Ipratropium [place] (Atrovent 0.02% 0.5MG/2.5ML Neb) 0.5 mg BIDR INH 12/18/17 20:00 01/17/18 19:59 12/22/17 07:13 0.5 MG Levalbuterol (Xopenex 0.63 Mg/ 3 Ml Neb) 0.63 mg BIDR INH 12/18/17 20:00 01/17/18 19:59 12/22/17 07:13 0.63 MG Celecoxib (CeleBREX CAP) 200 mg QAM PO 12/19/17 09:00 01/18/18 08:59 Metoprolol Succinate (Toprol Xl Tab) 50 mg QAM PO 12/21/17 09:00 01/20/18 08:59 12/21/17 08:35 50 MG Aspirin (Ecotrin Tab) 81 mg DAILY PO 12/21/17 09:00 01/20/18 08:59 12/21/17 08:34 81 MG
--- NOTE | 2017-12-22 17:29 | Infectious Disease Progress Nt ---
Progress Note Date of Service December 22, 2017. Subjective Pt evaluation today including: conversation w/ patient, physical exam, chart review, lab review, review of studies, conversation w/ operations consultant, review of inpatient medication list Still with left knee pain, otherwise offers no new specific complaints. Remains afebrile. All Other Systems: Reviewed and Negative Medications Current Inpatient Medications Medications (Trade) Dose Ordered Sig/Mak Route Start Time Stop Time Status Last Admin Dose Admin Promethazine HCl 12.5 mg/Sodium Chloride 50.5 ml @ 204 mls/hr Q6H PRN IV 12/15/17 17:15 01/14/18 17:14 Apixaban (Eliquis Tab) 2.5 mg BID PO 12/15/17 21:00 01/14/18 20:59 12/21/17 20:31 2.5 MG Atorvastatin Calcium (Lipitor Tab) 40 mg DAILY PO 12/16/17 09:00 01/15/18 08:59 12/22/17 15:24 40 MG Bisacodyl (Dulcolax Supp) 10 mg DAILY PRN [place] 12/15/17 18:00 01/14/18 17:59 Diltiazem HCl (TIAzac CAP) 120 mg DAILY PO 12/16/17 09:00 01/15/18 08:59 12/22/17 15:25 120 MG Latanoprost (Xalatan Oph Soln) 1 drops HS OPB 12/15/17 21:00 01/14/18 20:59 12/21/17 20:32 1 DROPS Levothyroxine Sodium (Synthroid Tab) 100 mcg DAILYBB PO 12/16/17 06:30 01/15/18 06:29 12/22/17 05:32 100 MCG Magnesium Hydroxide (Milk Of Magnesia Susp) 30 ml DAILY PRN PO 12/15/17 18:00 01/14/18 17:59 Oxybutynin Chloride (Ditropan-Xl Tab) 10 mg DAILY PO 12/16/17 09:00 01/15/18 08:59 12/22/17 15:24 10 MG Potassium Chloride (Klor-Con Tab) 20 meq DAILY PO 12/16/17 09:00 01/15/18 08:59 12/22/17 15:25 20 MEQ Sodium Biphosphate/ Sodium Phosphate (Fleet Enema) 118 ml DAILY PRN [place] 12/15/17 18:00 01/14/18 17:59 Ipratropium [place] (Atrovent 0.02% 0.5MG/2.5ML Neb) 0.5 mg Q4H PRN INH 12/18/17 11:30 01/17/18 11:29 Levalbuterol (Xopenex 0.63 Mg/ 3 Ml Neb) 0.63 mg Q4H PRN INH 12/18/17 11:30 01/17/18 11:29 Ipratropium [place] (Atrovent 0.02% 0.5MG/2.5ML Neb) 0.5 mg BIDR INH 12/18/17 20:00 01/17/18 19:59 12/22/17 07:13 0.5 MG Levalbuterol (Xopenex 0.63 Mg/ 3 Ml Neb) 0.63 mg BIDR INH 12/18/17 20:00 01/17/18 19:59 12/22/17 07:13 0.63 MG Celecoxib (CeleBREX CAP) 200 mg QAM PO 12/19/17 09:00 01/18/18 08:59 12/22/17 15:25 200 MG Metoprolol Succinate (Toprol Xl Tab) 50 mg QAM PO 12/21/17 09:00 01/20/18 08:59 12/22/17 15:24 50 MG Aspirin (Ecotrin Tab) 81 mg DAILY PO 12/21/17 09:00 01/20/18 08:59 12/22/17 15:26 81 MG Tramadol HCl (Ultram Tab) 50 mg Q6H PRN PO 12/22/17 15:15 01/21/18 15:14 Acetaminophen (Tylenol Tab) 650 mg Q4H PRN PO 12/22/17 17:00 01/21/18 16:59 Objective Vital Signs Date Time Temp Pulse Resp B/P (MAP) Pulse Ox O2 Delivery O2 Flow Rate FiO2 12/22/17 15:45 Room Air 12/22/17 15:34 36.6 92 18 139/82 (101) 94 Room Air 12/22/17 07:50 Room Air 12/22/17 07:33 36.6 83 18 128/84 (99) 95 Room Air 12/22/17 07:14 70 16 93 Room Air 12/22/17 04:36 93 Room Air 2.0 12/22/17 00:15 93 Room Air 2.0 12/21/17 23:30 36.5 75 16 138/79 (98) 94 Room Air 12/21/17 19:39 84 18 93 Room Air Physical Exam General Appearance: WD/WN, no apparent distress Eyes: normal inspection, EOMI, sclerae normal ENT: normal ENT inspection, pharynx normal Neck: supple, no adenopathy, thyroid normal, trachea midline Respiratory/Chest: chest non-tender, lungs clear, normal breath sounds, no respiratory distress Cardiovascular: regular rate, rhythm, no gallop, no murmur Abdomen: normal bowel sounds, non tender, no organomegaly Extremities: normal range of motion, no calf tenderness Neurologic/Psychiatric: alert, + disoriented Skin: normal color, warm/dry, no rash Lymphatic: no adenopathy Laboratory Results RUN DATE: 12/21/17 [facility] LAB PAGE 1 RUN TIME: 704 Specimen Inquiry PATIENT: ROSLYN RODRIGUEZ LOC: [facility] U # : [id number] AGE/SX: 87/F ROOM: N387 REG : 12/15/[address]: Iam Jon MD : 1930 BED: 2 DIS : STATUS: ADM IN TLOC: SPEC #: [id number] REED: 12/15/17 STATUS: COMP REQ #: [id number] RECD: 12/15/[address]: Jaime Tesfaye M.D. 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 COMPARISON: None. FINDINGS: No acute fracture or dislocation within the left knee. Severe tricompartmental osteoarthritis with [id number] articulation within the medial and patellofemoral compartments. There are large tricompartmental osteophytes. Vascular calcifications are noted. The tip of the proximal femoral prosthesis is identified. Small to moderate knee effusion. Vascular calcifications are noted. There is posterior subcutaneous edema within the knee. IMPRESSION: 1. No acute fracture or dislocation within the left knee. 2. Small to moderate knee effusion. 3. Severe tricompartmental osteoarthritis. Electronically signed by: Marcin Rodríguez M.D. 12/17/2017 10:00 AM Dictated Date/Time: 12/17/2017 9:58 AM The status of this report is Signed. Draft = Not yet reviewed or approved by Radiologist. Signed = Reviewed and approved by Radiologist. <AttendingPhy>Iam Jon MD</AttendingPhy> <FamilyPhy>Bouchra Skinner M.D.</FamilyPhy> <PrimaryPhy>HeartremyFederico</PrimaryPhy> <UnitNumber> [id number]</UnitNumber> <VisitNumber>[id number]</VisitNumber> <PatientName> ROSLYN RODRIGUEZ</PatientName> <DateOfBirth>1930</DateOfBirth> < Location>[facility]</Location> <ServiceDate>12/15/17</ServiceDate> <MNE>ESINDI</MNE> <OrderingPhy>Miguel Blank PAC</OrderingPhy> <OrderingPhyMNE>f rep ord dr myers</OrderingPhyMNE> <DictatingPhyMNE>f rep dict dr myers</ Assessment and Plan 87-year-old female admitted with acute change in mental status and hypoxia, no obvious pneumonia on imaging studies and procalcitonin normal. Patient will be followed off antibiotics. Will follow.
[2017-12-22] MEDS: LATANOPROST 0.005% OP SOLN 2.5 ML BTL OPB SCH (20:28)
[2017-12-22] MEDS ORDERED: ACETAMINOPHEN 500 MG TAB PO SCH (22:00)
[2017-12-23] VITALS (8 sets, daily range): BP systolic 94–133; BP diastolic 51–80; PULSE 67–91; TEMP 36.5–36.7; O2SAT 91–96
[2017-12-23] MEDS: LEVOTHYROXINE 100 MCG TAB PO SCH (06:10)
[2017-12-23] MEDS: IPRATROPIUM BROMIDE NEB SOLN 0.02% 2.5 ML VIAL INH SCH ×2 (07:15→19:03)
[2017-12-23] MEDS: LEVALBUTEROL 0.63MG/3 ML NEB INH SCH ×2 (07:16→19:04)
[2017-12-23] MEDS: POTASSIUM CHLORIDE 20 MEQ TABCR PO SCH (09:00)
[2017-12-23] MEDS: DILTIAZEM HCL 120 MG EXT REL CAP PO SCH (09:00)
[2017-12-23] MEDS: METOPROLOL SUCC 50MG EXT REL TAB PO SCH (09:00)
[2017-12-23] MEDS: ATORVASTATIN 40 MG TAB PO SCH (09:00)
[2017-12-23] MEDS: CeleBREX 200 MG CAP PO SCH (09:00)
[2017-12-23] MEDS: OXYBUTYNIN CHLORIDE 5 MG TABCR PO SCH (09:00)
[2017-12-23] MEDS: APIXABAN 2.5 MG TAB PO SCH ×2 (09:07→21:56)
[2017-12-23] MEDS: ASPIRIN 81 MG ECTAB PO SCH (09:08)
--- NOTE | 2017-12-23 19:10 | Progress Note ---
Internal Med Progress Note Date of Service: December 23, 2017. Provider Documentation: SUBJECTIVE: pt sitting on chair , watching TV requires Gil lift to transfer Total care /complete assistance to ADL in room air denies of any SOB or cough reluctant to participate in any type of conversation has been refusing all lab draws , medications does not [facility] to [facility] Daughter present at bedside , tired to explain to pt why she needs more care and can not return back home pt got upset says " I dont want to hear about it any more ") OBJECTIVE: Vital Signs-as noted below Exam: GEN:Obese , no sign of distress , flat affect HEENT: sclera non icteric HEART: regular S1/S2 LUNGS: diminished breath sound , no wheeze or rales noted ABD: obese /soft, non-tender, non-distended, EXTREMITY: + 2 bilat lower lower ext edema , with chronic venous stasis changes NEURO: forgetfulness /baseline dementia ? no focal neurological deficit, oriented to place and person only Lab data as noted below. ASSESSMENT & PLAN: ACUTE ON CHRONIC HYPOXEMIC RESPIRATORY FAILURE : has baseline COPD /and DEONDRE no compliant with supplemental 02 presented with hypoxia possible secondary to atelectasis /recently treated for HCAP Cxray shows chronic infiltrate No further abx treatment per ID at this time. Repeat CXR in 4-6 weeks to ensure radiographic resolution. hypoxia has resolved adequate oxygenation in room air per nursing , pt desaturates to upper 80's while sleeping ( suggestive of DEONDRE ) instructed for supplemental 02 while sleeping and nap time -pt is refuses to wear nasal canula cont PRN Neb tx and INH CONFUSION /METABOLIC ENCEPHALOPATHY : possible due to hypoxemia has baseline dementia mental status improved to baseline awake and alert conversing appropriately no evidence of confusion refusing all meds and Lab draws -because she does not want the meds /and hates needle sticks observe for sundowning /Hospital associated delirium CHRONIC A FIB : -rate controlled with Diltiazem and Toprol. on anticoagulation with Apixaban LEFT KNEE PAIN secondary to severe OA- seen by Ortho and offered cortisone injection and Celebrex, pt declined them all Amenable to Synvisc injection, however, this was recommended as outpatient. cont symptom control PT/OT eval requested pt is non co operative to Physical therapy CHRONIC DIASTOLIC HEART FAILURE : compensated HYPOTHYROIDISM : cont levothyroxine SEVERE AMBULATORY DYSFUNCTION unable to transfer or change position without assistance needs continued PT/OT /supportive care at a skilled facility then transition to supervisor intermediates care not safe to return home pt and her continues to insist on going home then requiring admission in few hours due to fall multiple discussions with pt and her in past admission regarding safety issue office of aging involved scheduled to have a court hearing to appoint guardianship and NH placement order Full Code DVT PROPHYLAXIS Apixaban DISPOSITION -uncertain at this time. office of aging involved due to concern for safety issues adamantly refuses skilled nursing,however, there is a court order mandating this. social service following for discharge planning Vital Signs: Date Time Temp Pulse Resp B/P (MAP) Pulse Ox O2 Delivery O2 Flow Rate FiO2 12/25/17 08:11 78 18 93 Room Air 12/25/17 08:00 Room Air 12/25/17 07:16 36.5 83 20 144/78 (100) 95 Room Air 12/25/17 00:15 96 Room Air 2.0 12/24/17 22:55 36.8 86 18 119/74 (89) 96 Room Air 12/24/17 19:10 70 18 96 Room Air 12/24/17 16:08 36.5 78 18 128/81 (97) 96 Room Air 12/24/17 15:30 Room Air Lab Results:
--- NOTE | 2017-12-23 19:32 | Infectious Disease Progress Nt ---
Progress Note Date of Service December 23, 2017. Subjective Pt evaluation today including: conversation w/ patient, physical exam, chart review, lab review, review of studies, conversation w/ executive search consultant, review of inpatient medication list Still with some left knee pain but improved. Remains afebrile. All Other Systems: Reviewed and Negative Medications Current Inpatient Medications Medications (Trade) Dose Ordered Sig/Mak Route Start Time Stop Time Status Last Admin Dose Admin Promethazine HCl 12.5 mg/Sodium Chloride 50.5 ml @ 204 mls/hr Q6H PRN IV 12/15/17 17:15 01/14/18 17:14 Apixaban (Eliquis Tab) 2.5 mg BID PO 12/15/17 21:00 01/14/18 20:59 12/23/17 09:07 2.5 MG Atorvastatin Calcium (Lipitor Tab) 40 mg DAILY PO 12/16/17 09:00 01/15/18 08:59 12/22/17 15:24 40 MG Bisacodyl (Dulcolax Supp) 10 mg DAILY PRN [place] 12/15/17 18:00 01/14/18 17:59 Diltiazem HCl (TIAzac CAP) 120 mg DAILY PO 12/16/17 09:00 01/15/18 08:59 12/22/17 15:25 120 MG Latanoprost (Xalatan Oph Soln) 1 drops HS OPB 12/15/17 21:00 01/14/18 20:59 12/22/17 20:28 1 DROPS Levothyroxine Sodium (Synthroid Tab) 100 mcg DAILYBB PO 12/16/17 06:30 01/15/18 06:29 12/23/17 06:10 100 MCG Magnesium Hydroxide (Milk Of Magnesia Susp) 30 ml DAILY PRN PO 12/15/17 18:00 01/14/18 17:59 Oxybutynin Chloride (Ditropan-Xl Tab) 10 mg DAILY PO 12/16/17 09:00 01/15/18 08:59 12/22/17 15:24 10 MG Potassium Chloride (Klor-Con Tab) 20 meq DAILY PO 12/16/17 09:00 01/15/18 08:59 12/22/17 15:25 20 MEQ Sodium Biphosphate/ Sodium Phosphate (Fleet Enema) 118 ml DAILY PRN [place] 12/15/17 18:00 01/14/18 17:59 Ipratropium [place] (Atrovent 0.02% 0.5MG/2.5ML Neb) 0.5 mg Q4H PRN INH 12/18/17 11:30 01/17/18 11:29 Levalbuterol (Xopenex 0.63 Mg/ 3 Ml Neb) 0.63 mg Q4H PRN INH 12/18/17 11:30 01/17/18 11:29 Ipratropium [place] (Atrovent 0.02% 0.5MG/2.5ML Neb) 0.5 mg BIDR INH 12/18/17 20:00 01/17/18 19:59 12/23/17 07:15 0.5 MG Levalbuterol (Xopenex 0.63 Mg/ 3 Ml Neb) 0.63 mg BIDR INH 12/18/17 20:00 01/17/18 19:59 12/23/17 07:16 0.63 MG Celecoxib (CeleBREX CAP) 200 mg QAM PO 12/19/17 09:00 01/18/18 08:59 12/22/17 15:25 200 MG Metoprolol Succinate (Toprol Xl Tab) 50 mg QAM PO 12/21/17 09:00 01/20/18 08:59 12/22/17 15:24 50 MG Aspirin (Ecotrin Tab) 81 mg DAILY PO 12/21/17 09:00 01/20/18 08:59 12/23/17 09:08 81 MG Tramadol HCl (Ultram Tab) 50 mg Q6H PRN PO 12/22/17 15:15 01/21/18 15:14 Acetaminophen (Tylenol Tab) 650 mg Q4H PRN PO 12/22/17 17:00 01/21/18 16:59 Objective Vital Signs Date Time Temp Pulse Resp B/P (MAP) Pulse Ox O2 Delivery O2 Flow Rate FiO2 12/23/17 16:25 Room Air 12/23/17 16:15 36.7 80 18 99/55 (70) 92 Room Air 12/23/17 13:01 36.5 70 24 106/72 (83) 94 Room Air 12/23/17 09:03 Room Air 12/23/17 08:07 36.7 69 24 94/51 (65) 96 Room Air 12/23/17 07:36 Room Air 12/23/17 07:16 68 16 94 Room Air 12/23/17 06:57 36.6 67 18 133/80 (97) 93 Room Air 12/23/17 00:05 95 Room Air 2.0 12/22/17 23:00 36.4 62 16 109/66 (80) 95 Room Air Physical Exam General Appearance: WD/WN, no apparent distress Eyes: normal inspection, EOMI, sclerae normal ENT: normal ENT inspection, hearing grossly normal, pharynx normal Neck: supple, no adenopathy, thyroid normal, trachea midline Respiratory/Chest: chest non-tender, lungs clear, normal breath sounds, no respiratory distress Cardiovascular: regular rate, rhythm, no gallop, no murmur Abdomen: normal bowel sounds, non tender, soft, no organomegaly Extremities: non-tender, no calf tenderness Neurologic/Psychiatric: alert, oriented x 3 Skin: normal color, warm/dry, no rash Lymphatic: no adenopathy Assessment and Plan 87-year-old female admitted with acute change in mental status and hypoxia, no obvious pneumonia on imaging studies and procalcitonin normal. Patient to be followed off antibiotics. Will follow.
[2017-12-23] MEDS: LATANOPROST 0.005% OP SOLN 2.5 ML BTL OPB SCH (21:56)
[2017-12-24] VITALS (7 sets, daily range): BP systolic 118–128; BP diastolic 65–81; PULSE 70–90; TEMP 36.4–36.8; O2SAT 94–96
[2017-12-24] MEDS: LEVOTHYROXINE 100 MCG TAB PO SCH (06:00)
[2017-12-24] MEDS: IPRATROPIUM BROMIDE NEB SOLN 0.02% 2.5 ML VIAL INH SCH ×2 (07:09→19:09)
[2017-12-24] MEDS: LEVALBUTEROL 0.63MG/3 ML NEB INH SCH ×2 (07:09→19:10)
[2017-12-24] MEDS: METOPROLOL SUCC 50MG EXT REL TAB PO SCH (09:00)
[2017-12-24] MEDS: DILTIAZEM HCL 120 MG EXT REL CAP PO SCH (09:00)
[2017-12-24] MEDS: OXYBUTYNIN CHLORIDE 5 MG TABCR PO SCH (09:00)
[2017-12-24] MEDS: CeleBREX 200 MG CAP PO SCH (09:00)
[2017-12-24] MEDS: ATORVASTATIN 40 MG TAB PO SCH (09:00)
[2017-12-24] MEDS: POTASSIUM CHLORIDE 20 MEQ TABCR PO SCH (09:00)
[2017-12-24] MEDS: ASPIRIN 81 MG ECTAB PO SCH (09:25)
[2017-12-24] MEDS: APIXABAN 2.5 MG TAB PO SCH ×2 (09:25→20:36)
--- NOTE | 2017-12-24 19:58 | Progress Note ---
Internal Med Progress Note Date of Service: December 24, 2017. Provider Documentation: SUBJECTIVE: offers no new complains adamantly refusing lab draws , nursing care and medications respiratory status stable no hypoxia , no cough no fever or chills OBJECTIVE: Vital Signs-as noted below Exam: GEN:Obese , no sign of distress , flat affect HEENT: sclera non icteric HEART: regular S1/S2 LUNGS: diminished breath sound , no wheeze or rales noted ABD: obese /soft, non-tender, non-distended, EXTREMITY: + 2 bilat lower lower ext edema , with chronic venous stasis changes NEURO: forgetfulness /baseline dementia ? no focal neurological deficit, oriented to place and person only Lab data as noted below. ASSESSMENT & PLAN: ACUTE ON CHRONIC HYPOXEMIC RESPIRATORY FAILURE : has baseline COPD /and DEONDRE no compliant with supplemental 02 presented with hypoxia possible secondary to atelectasis /recently treated for HCAP Cxray shows chronic infiltrate ID eval requested appreciate input no sign of active infection no indication for abx tx Repeat CXR in 4-6 weeks to ensure radiographic resolution. hypoxia has resolved adequate oxygenation in room air per nursing , pt desaturates to upper 80's while sleeping ( suggestive of DEONDRE ) instructed for supplemental 02 while sleeping and nap time -pt is refuses to wear nasal canula cont PRN Neb tx and INH CONFUSION /METABOLIC ENCEPHALOPATHY : resolved , awake and alert possible due to hypoxemia has baseline dementia mental status improved to baseline no evidence of confusion refusing all meds and Lab draws -because she does not want the meds /and hates needle sticks observe for sundowning /Hospital associated delirium CHRONIC A FIB : -rate controlled with Diltiazem and Toprol. on anticoagulation with Apixaban LEFT KNEE PAIN secondary to severe OA- seen by Ortho and offered cortisone injection and Celebrex, pt declined them all Amenable to Synvisc injection, however, this was recommended as outpatient. 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 office of aging involved due to concern for safety issues adamantly refuses retirement,however, there is a court order mandating this. social service following for discharge planning Vital Signs: Date Time Temp Pulse Resp B/P (MAP) Pulse Ox O2 Delivery O2 Flow Rate FiO2 12/25/17 08:11 78 18 93 Room Air 12/25/17 08:00 Room Air 12/25/17 07:16 36.5 83 20 144/78 (100) 95 Room Air 12/25/17 00:15 96 Room Air 2.0 12/24/17 22:55 36.8 86 18 119/74 (89) 96 Room Air 12/24/17 19:10 70 18 96 Room Air 12/24/17 16:08 36.5 78 18 128/81 (97) 96 Room Air 12/24/17 15:30 Room Air
[2017-12-24] MEDS: LATANOPROST 0.005% OP SOLN 2.5 ML BTL OPB SCH (20:36)
[2017-12-25 00:15] VITALS: O2SAT 96
[2017-12-25] MEDS: LEVOTHYROXINE 100 MCG TAB PO SCH (06:25)
[2017-12-25 07:16] VITALS: BP 144/78; PULSE 83; TEMP 36.5; O2SAT 95
[2017-12-25 08:11] VITALS: PULSE 78; O2SAT 93
[2017-12-25] MEDS: IPRATROPIUM BROMIDE NEB SOLN 0.02% 2.5 ML VIAL INH SCH (08:11)
[2017-12-25] MEDS: LEVALBUTEROL 0.63MG/3 ML NEB INH SCH (08:11)
[2017-12-25] MEDS: OXYBUTYNIN CHLORIDE 5 MG TABCR PO SCH (09:00)
[2017-12-25] MEDS: POTASSIUM CHLORIDE 20 MEQ TABCR PO SCH (09:00)
[2017-12-25] MEDS: ATORVASTATIN 40 MG TAB PO SCH (09:00)
[2017-12-25] MEDS: DILTIAZEM HCL 120 MG EXT REL CAP PO SCH (09:00)
[2017-12-25] MEDS: METOPROLOL SUCC 50MG EXT REL TAB PO SCH (09:00)
[2017-12-25] MEDS: CeleBREX 200 MG CAP PO SCH (09:00)
[2017-12-25] MEDS: ASPIRIN 81 MG ECTAB PO SCH (09:09)
[2017-12-25] MEDS: APIXABAN 2.5 MG TAB PO SCH ×2 (09:09→21:57)
[2017-12-25] MEDS ORDERED: NURSING VERBAL MED ORDER ONE (11:30)
[2017-12-25 16:00] VITALS: BP 110/68; PULSE 96; TEMP 36.4; O2SAT 93
[2017-12-25] MEDS ORDERED: METHYLPREDNISOLONE ACETATE 80 MG/ML VIAL IA ONE (16:00)
[2017-12-25] MEDS ORDERED: ETHYL CHLORIDE AER SPR 100 ML CAN EXT ONE (16:00)
[2017-12-25] MEDS ORDERED: BUPIVACAINE 0.25% 30 ML VIAL INFIL ONE (16:00)
--- NOTE | 2017-12-25 17:57 | Infectious Disease Progress Nt ---
Progress Note Date of Service December 25, 2017. Subjective Pt evaluation today including: conversation w/ patient, physical exam, chart review, lab review, review of studies, conversation w/ erp consultant, review of inpatient medication list Patient appears unchanged. Remains afebrile. All Other Systems: Reviewed and Negative Medications Current Inpatient Medications Medications (Trade) Dose Ordered Sig/Mak Route Start Time Stop Time Status Last Admin Dose Admin Promethazine HCl 12.5 mg/Sodium Chloride 50.5 ml @ 204 mls/hr Q6H PRN IV 12/15/17 17:15 01/14/18 17:14 Apixaban (Eliquis Tab) 2.5 mg BID PO 12/15/17 21:00 01/14/18 20:59 12/25/17 09:09 2.5 MG Atorvastatin Calcium (Lipitor Tab) 40 mg DAILY PO 12/16/17 09:00 01/15/18 08:59 12/22/17 15:24 40 MG Bisacodyl (Dulcolax Supp) 10 mg DAILY PRN [place] 12/15/17 18:00 01/14/18 17:59 Diltiazem HCl (TIAzac CAP) 120 mg DAILY PO 12/16/17 09:00 01/15/18 08:59 12/22/17 15:25 120 MG Latanoprost (Xalatan Oph Soln) 1 drops HS OPB 12/15/17 21:00 01/14/18 20:59 12/24/17 20:36 1 DROPS Levothyroxine Sodium (Synthroid Tab) 100 mcg DAILYBB PO 12/16/17 06:30 01/15/18 06:29 12/25/17 06:25 100 MCG Magnesium Hydroxide (Milk Of Magnesia Susp) 30 ml DAILY PRN PO 12/15/17 18:00 01/14/18 17:59 Oxybutynin Chloride (Ditropan-Xl Tab) 10 mg DAILY PO 12/16/17 09:00 01/15/18 08:59 12/22/17 15:24 10 MG Potassium Chloride (Klor-Con Tab) 20 meq DAILY PO 12/16/17 09:00 01/15/18 08:59 12/22/17 15:25 20 MEQ Sodium Biphosphate/ Sodium Phosphate (Fleet Enema) 118 ml DAILY PRN [place] 12/15/17 18:00 01/14/18 17:59 Ipratropium [place] (Atrovent 0.02% 0.5MG/2.5ML Neb) 0.5 mg Q4H PRN INH 12/18/17 11:30 01/17/18 11:29 Levalbuterol (Xopenex 0.63 Mg/ 3 Ml Neb) 0.63 mg Q4H PRN INH 12/18/17 11:30 01/17/18 11:29 Celecoxib (CeleBREX CAP) 200 mg QAM PO 12/19/17 09:00 01/18/18 08:59 12/22/17 15:25 200 MG Metoprolol Succinate (Toprol Xl Tab) 50 mg QAM PO 12/21/17 09:00 01/20/18 08:59 12/22/17 15:24 50 MG Aspirin (Ecotrin Tab) 81 mg DAILY PO 12/21/17 09:00 01/20/18 08:59 12/25/17 09:09 81 MG Tramadol HCl (Ultram Tab) 50 mg Q6H PRN PO 12/22/17 15:15 01/21/18 15:14 Acetaminophen (Tylenol Tab) 650 mg Q4H PRN PO 12/22/17 17:00 01/21/18 16:59 Objective Vital Signs Date Time Temp Pulse Resp B/P (MAP) Pulse Ox O2 Delivery O2 Flow Rate FiO2 12/25/17 16:00 36.4 96 18 110/68 (82) 93 Room Air 12/25/17 08:11 78 18 93 Room Air 12/25/17 08:00 Room Air 12/25/17 07:16 36.5 83 20 144/78 (100) 95 Room Air 12/25/17 00:15 96 Room Air 2.0 12/24/17 22:55 36.8 86 18 119/74 (89) 96 Room Air 12/24/17 19:10 70 18 96 Room Air Physical Exam General Appearance: WD/WN, no apparent distress Eyes: normal inspection, EOMI, sclerae normal ENT: normal ENT inspection, pharynx normal Neck: supple, no adenopathy, thyroid normal, trachea midline Respiratory/Chest: chest non-tender, lungs clear, normal breath sounds, no respiratory distress Cardiovascular: regular rate, rhythm, no gallop, no murmur Abdomen: normal bowel sounds, non tender, soft, no organomegaly Extremities: non-tender, no calf tenderness Neurologic/Psychiatric: alert, + disoriented Skin: normal color, no rash Lymphatic: no adenopathy Assessment and Plan 87-year-old female admitted with acute change in mental status and hypoxia, no obvious pneumonia on imaging studies and procalcitonin normal. Patient to be followed off antibiotics. Will follow.
[2017-12-25] MEDS: LATANOPROST 0.005% OP SOLN 2.5 ML BTL OPB SCH (21:57)
[2017-12-25 23:20] VITALS: BP 118/76; PULSE 93; TEMP 36.7; O2SAT 93
--- NOTE | 2017-12-25 23:33 | Progress Note ---
Internal Med Progress Note Date of Service: December 25, 2017. Provider Documentation: SUBJECTIVE: Sitting on chair Requiring maximum assistance for transfer Denies of any chest pain or shortness of breath no cough Does not want to communicate at all Gets very upset/agitated with recommendation to return to rehab Does not care if she falls after returning back home Will continue follow-up with office of aging and social service for safe discharge plan OBJECTIVE: Vital Signs-as noted below Exam: GEN:Obese , no sign of distress , flat affect HEENT: sclera non icteric HEART: regular S1/S2 LUNGS: diminished breath sound , no wheeze or rales noted ABD: obese /soft, non-tender, non-distended, EXTREMITY: + 2 bilat lower lower ext edema , with chronic venous stasis changes NEURO: forgetfulness /baseline dementia ? no focal neurological deficit, oriented to place and person only Lab data as noted below. ASSESSMENT & PLAN: ACUTE ON CHRONIC HYPOXEMIC RESPIRATORY FAILURE Resolved: has baseline COPD /and DEONDRE no compliant with supplemental 02 presented with hypoxia possible secondary to atelectasis /recently treated for HCAP Cxray shows chronic infiltrate ID eval requested appreciate input no sign of active infection no indication for abx tx Repeat CXR in 4-6 weeks to ensure radiographic resolution. hypoxia has resolved adequate oxygenation in room air per nursing , pt desaturates to upper 80's while sleeping ( suggestive of DEONDRE ) instructed for supplemental 02 while sleeping and nap time -pt is refuses to wear nasal canula cont PRN Neb tx and INH CONFUSION /METABOLIC ENCEPHALOPATHY : resolved , awake and alert possible due to hypoxemia has baseline dementia mental status improved to baseline no evidence of confusion refusing all meds and Lab draws -because she does not want the meds /and hates needle sticks observe for sundowning /Hospital associated delirium CHRONIC A FIB : -rate controlled with Diltiazem and Toprol. on anticoagulation with Apixaban LEFT KNEE PAIN secondary to severe OA- seen by Ortho and offered cortisone injection and Celebrex, pt declined them all Amenable to Synvisc injection, however, this was recommended as outpatient. cont symptom control PT/OT eval requested pt is non co operative to Physical therapy CHRONIC DIASTOLIC HEART FAILURE : compensated HYPOTHYROIDISM : cont levothyroxine SEVERE AMBULATORY DYSFUNCTION unable to transfer or change position without assistance needs continued PT/OT /supportive care at a skilled facility then transition to prison care not safe to return home pt and her continues to insist on going home then requiring admission in few hours due to fall multiple discussions with pt and her in past admission regarding safety issue office of aging involved scheduled to have a court hearing to appoint guardianship and NH placement order Full Code DVT PROPHYLAXIS Apixaban DISPOSITION -uncertain at this time. office of aging involved due to concern for safety issues adamantly refuses assisted,however, there is a court order mandating this. social service following for discharge planning Vital Signs: Date Time Temp Pulse Resp B/P (MAP) Pulse Ox O2 Delivery O2 Flow Rate FiO2 12/25/17 16:20 Room Air 12/25/17 16:00 36.4 96 18 110/68 (82) 93 Room Air 12/25/17 08:11 78 18 93 Room Air 12/25/17 08:00 Room Air 12/25/17 07:16 36.5 83 20 144/78 (100) 95 Room Air 12/25/17 00:15 96 Room Air 2.0
[2017-12-26 00:05] VITALS: O2SAT 93
[2017-12-26] MEDS: LEVOTHYROXINE 100 MCG TAB PO SCH (05:51)
[2017-12-26 07:39] VITALS: BP 132/69; PULSE 94; TEMP 36.6; O2SAT 93
[2017-12-26] MEDS: OXYBUTYNIN CHLORIDE 5 MG TABCR PO SCH (09:00)
[2017-12-26] MEDS: DILTIAZEM HCL 120 MG EXT REL CAP PO SCH (09:00)
[2017-12-26] MEDS: APIXABAN 2.5 MG TAB PO SCH ×2 (09:00→21:45)
[2017-12-26] MEDS: ASPIRIN 81 MG ECTAB PO SCH (09:00)
[2017-12-26] MEDS: METOPROLOL SUCC 50MG EXT REL TAB PO SCH (09:00)
[2017-12-26] MEDS: CeleBREX 200 MG CAP PO SCH (09:00)
[2017-12-26] MEDS: POTASSIUM CHLORIDE 20 MEQ TABCR PO SCH (09:00)
[2017-12-26] MEDS: ATORVASTATIN 40 MG TAB PO SCH (09:00)
[2017-12-26 14:51] VITALS: BP 103/65; PULSE 94; TEMP 36.4; O2SAT 93
--- NOTE | 2017-12-26 16:31 | Orthopedic Progress Note ---
Orthopedic Progress Note Date of Service Dec 26, 2017. Subjective Reports: feeling well, complaints, Denies: chest pain, SOB, nausea / vomiting, light headedness, calf pain Additional Notes: Left knee pain persists. not present. When asked about her left knee, she requested "an injection to make it feel better". Objective calves soft nontender, N/V intact, capillary refill less than 2 sec., toes mobile + Left knee effusion. Left knee pain and intermittent crepitation with AROM and PROM. DNVSI B LE. Palpable pulses B LE. Feet warm. Date Time Temp Pulse Resp B/P (MAP) Pulse Ox O2 Delivery O2 Flow Rate FiO2 12/26/17 14:51 36.4 94 18 103/65 (78) 93 Room Air 12/26/17 08:00 Room Air 12/26/17 07:39 36.6 94 18 132/69 (90) 93 Room Air 12/26/17 00:05 93 Room Air 2.0 12/25/17 23:20 36.7 93 20 118/76 (90) 93 Room Air Assessment & Plan Assessment: Severe Tricompartmental Djd Left Knee Left knee effusion Left knee pain Plan: Left knee steroid injection given 6cc local/1cc 80mg Depomedrol injected infrapatellar left knee using sterile technique and ethyl chloride topical spray. Verbal consent obtained. Patient tolerated well. Post injections discussed w/ patient and nurse present during procedure. Ice 20 mins 3x per day for 3 days left knee WBAT w/ assist and walker Nonsurgical candidate at this time F/U prn
--- NOTE | 2017-12-26 17:52 | Infectious Disease Progress Nt ---
Progress Note Date of Service Dec 26, 2017. Subjective Pt evaluation today including: conversation w/ patient, physical exam, chart review, lab review, review of studies, conversation w/ fashion consultant, review of inpatient medication list Offers no new specific complaints today. Remains afebrile. All Other Systems: Reviewed and Negative Medications Reported Home Medications Medications Dose Route/Sig Max Daily Dose Days Date Category Toprol-Xl (Metoprolol Succinate) 50 Mg Tabcr 50 Mg PO DAILY 12/20/17 Rx Zestril (Lisinopril) 10 Mg Tab 10 Mg PO DAILY 12/20/17 Rx Aspir-81 (Aspirin) 81 Mg Tab 1 Tab PO DAILY 30 12/20/17 Rx Levothyroxine Sodium 100 Mcg Tab 1 Tab PO DAILY 30 12/15/17 Reported Levaquin (Levofloxacin) 500 Mg Tab 1 Tab PO DAILY 7 12/15/17 Reported Furosemide 10 Mg/Ml Soln 40 Mg IM DAILY 3 12/15/17 Reported Fleet Enema Six [place] (Sodium Phosphates) 1 Karen Karen 1 Dose RE DAILY PRN 12/15/17 Reported Dulcolax (Bisacodyl) 10 Mg Sup 1 Supp [place] DAILY PRN 12/15/17 Reported Dexamethasone Sodium Phos (Dexamethasone Sod Phos) 10 Mg/Ml Inj 40 Mg IM BID 3 12/15/17 Reported Tylenol (Acetaminophen) 325 Mg Tab 650 Mg PO Q6H PRN 12/15/17 Reported Eliquis (Apixaban) 2.5 Mg Tab 2.5 Mg PO BID 30 12/15/17 Rx Lasix (Furosemide) 20 Mg Tab 20 Mg PO DAILY 11/04/17 Reported Klor-Con (Potassium Chloride) 20 Meq Tabcr 20 Meq PO DAILY 11/04/17 Reported Tiazac (Diltiazem HCl) 120 Mg Capcr 120 Mg PO DAILY 11/04/17 Reported Milk Of Magnesia (Magnesium Hydroxide) 30 Ml Susp 30 Ml PO DAILY PRN 11/04/17 Reported Proventil 0.083% 2.5MG/3ML (Albuterol Sulf) 2.5 Mg/3 Ml Nebu 2.5 Mg INH Q4H PRN 11/25/16 Reported Oxybutynin Chloride Er (Oxybutynin Chloride) 5 Mg Tab 10 Mg PO DAILY 90 11/25/16 Reported Latanoprost 37 Drops/2.5 Ml Soln 1 Drop OPB HS 03/22/15 Reported Lipitor (Atorvastatin Calcium) 40 Mg Tab 40 Mg PO DAILY 03/22/15 Reported Objective Vital Signs Date Time Temp Pulse Resp B/P (MAP) Pulse Ox O2 Delivery O2 Flow Rate FiO2 12/26/17 14:51 36.4 94 18 103/65 (78) 93 Room Air 12/26/17 08:00 Room Air 12/26/17 07:39 36.6 94 18 132/69 (90) 93 Room Air 12/26/17 00:05 93 Room Air 2.0 12/25/17 23:20 36.7 93 20 118/76 (90) 93 Room Air Physical Exam General Appearance: WD/WN, no apparent distress Eyes: normal inspection, EOMI, sclerae normal ENT: normal ENT inspection, pharynx normal Neck: supple, no adenopathy, thyroid normal, trachea midline Respiratory/Chest: chest non-tender, lungs clear, normal breath sounds, no respiratory distress Cardiovascular: regular rate, rhythm, no gallop, no murmur Abdomen: normal bowel sounds, non tender, soft, no organomegaly Extremities: non-tender, no calf tenderness Neurologic/Psychiatric: alert, + disoriented Skin: normal color, warm/dry, no rash Lymphatic: no adenopathy Assessment and Plan 87-year-old female admitted with acute change in mental status and hypoxia, no obvious pneumonia on imaging studies and procalcitonin normal. Patient to be followed off antibiotics. Will follow.
--- NOTE | 2017-12-26 19:06 | Progress Note ---
Internal Med Progress Note Date of Service: Dec 26, 2017. Provider Documentation: SUBJECTIVE: Sitting on chair Offers no new complaint Status post left knee steroid injection by orthopedics today OBJECTIVE: Vital Signs-as noted below Exam: GEN:Obese , no sign of distress , flat affect HEENT: sclera non icteric HEART: regular S1/S2 LUNGS: diminished breath sound , no wheeze or rales noted ABD: obese /soft, non-tender, non-distended, EXTREMITY: + 2 bilat lower lower ext edema , with chronic venous stasis changes NEURO: forgetfulness /baseline dementia ? no focal neurological deficit, oriented to place and person only Lab data as noted below. ASSESSMENT & PLAN: ACUTE ON CHRONIC HYPOXEMIC RESPIRATORY FAILURE Resolved: Respiratory status is baseline has baseline COPD /and DEONDRE no compliant with supplemental 02 presented with hypoxia possible secondary to atelectasis /recently treated for HCAP Cxray shows chronic infiltrate ID eval requested for recommendation for antibiotic regarding possible pneumonia appreciate input no sign of active infection no indication for abx tx Repeat CXR in 4-6 weeks to ensure radiographic resolution. hypoxia has resolved adequate oxygenation in room air per nursing , pt desaturates to upper 80's while sleeping ( suggestive of DEONDRE ) instructed for supplemental 02 while sleeping and nap time -pt is refuses to wear nasal canula cont PRN Neb tx and INH CONFUSION /METABOLIC ENCEPHALOPATHY : resolved , awake and alert possible due to hypoxemia has baseline dementia mental status improved to baseline no evidence of confusion refusing all meds and Lab draws -because she does not want the meds /and hates needle sticks observe for sundowning /Hospital associated delirium CHRONIC A FIB : -rate controlled with Diltiazem and Toprol. on anticoagulation with Apixaban LEFT KNEE PAIN secondary to severe OA- seen by Ortho and offered cortisone injection and Celebrex, pt declined them all Status post a left knee steroid injection by orthopedics PT/OT eval requested pt is non co operative to Physical therapy CHRONIC DIASTOLIC HEART FAILURE : compensated HYPOTHYROIDISM : cont levothyroxine SEVERE AMBULATORY DYSFUNCTION unable to transfer or change position without assistance needs continued PT/OT /supportive care at a skilled facility then transition to snf care not safe to return home pt and her continues to insist on going home then requiring admission in few hours due to fall multiple discussions with pt and her in past admission regarding safety issue office of aging involved scheduled to have a court hearing to appoint guardianship and NH placement order Full Code DVT PROPHYLAXIS Apixaban DISPOSITION -uncertain at this time. office of aging involved due to concern for safety issues adamantly refuses halfway,however, there is a court order mandating this. social service following for discharge planning Vital Signs: Date Time Temp Pulse Resp B/P (MAP) Pulse Ox O2 Delivery O2 Flow Rate FiO2 12/27/17 07:38 37.0 81 20 135/82 (99) 96 Room Air 12/26/17 23:30 Room Air 12/26/17 23:25 36.7 95 20 158/85 (109) 94 Room Air 12/26/17 16:30 Room Air 12/26/17 14:51 36.4 94 18 103/65 (78) 93 Room Air
[2017-12-26] MEDS: LATANOPROST 0.005% OP SOLN 2.5 ML BTL OPB SCH (21:45)
[2017-12-26 23:25] VITALS: BP 158/85; PULSE 95; TEMP 36.7; O2SAT 94
[2017-12-27] MEDS: LEVOTHYROXINE 100 MCG TAB PO SCH (05:30)
[2017-12-27] MEDS: APIXABAN 2.5 MG TAB PO SCH ×3 (07:34→21:50)
[2017-12-27] MEDS: ASPIRIN 81 MG ECTAB PO SCH ×2 (07:34→08:43)
[2017-12-27 07:38] VITALS: BP 135/82; PULSE 81; TEMP 37; O2SAT 96
[2017-12-27] MEDS: ATORVASTATIN 40 MG TAB PO SCH (09:00)
[2017-12-27] MEDS: POTASSIUM CHLORIDE 20 MEQ TABCR PO SCH (09:00)
[2017-12-27] MEDS: DILTIAZEM HCL 120 MG EXT REL CAP PO SCH (09:00)
[2017-12-27] MEDS: OXYBUTYNIN CHLORIDE 5 MG TABCR PO SCH (09:00)
[2017-12-27] MEDS: METOPROLOL SUCC 50MG EXT REL TAB PO SCH (09:00)
[2017-12-27] MEDS: CeleBREX 200 MG CAP PO SCH (09:00)
[2017-12-27] MEDS ORDERED: NURSING DECISION MEDICATION ORDER SCH (15:00)
[2017-12-27 15:14] VITALS: BP 135/85; PULSE 106; TEMP 36.5; O2SAT 95
--- NOTE | 2017-12-27 16:11 | Progress Note ---
Internal Med Progress Note Date of Service: Dec 27, 2017. Provider Documentation: SUBJECTIVE: Seen and examined at bedside No complaints S/P left knee steroid Injection yesterday Denies chest pain, SOB, abd pain Continues to refuse some of meds No issues pee staff OBJECTIVE: Vital Signs-as noted below Physical Exam: General Appearance:Moderately built and nourished, no apparent distress Head: normocephalic, Atraumatic Eyes: normal inspection, EOMI, PERRL Neck: supple, Trachea midline Respiratory/Chest: Decreased breath sounds, CTA Cardiovascular: S1, S2, +Tachycardia, No murmur Abdomen/GI:Soft, Non tender, Bowel sounds present Extremities/Musculoskelatal:normal inspection, 2+ B/L LE edema Neurologic/Psych:grossly no focal neurological deficits Skin: normal color, warm Lab data as noted below. ASSESSMENT & PLAN: Acute on Chronic Hypoxic Respiratory Failure H/O COPD and DEONDRE Resolved Currently saturating well on RA CXR:small left pleural effusion with left basilar consolidation which are also noted on prior CT scan Appreciate ID input No indication for Abx for now Needs repeat CXR in 4-6 weeks to ensure radiographic resolution. Hypoxic during night: supplemental 02 while sleeping Nebs PRN Metabolic Encephalopathy: Likely 2/2 Hypoxia Has baseline dementia Resolved Has refusing meds and Lab draws Monitor for delirium Chronic Atrial Fibrillation HR mildly elevated today Refused Metoprolol Was on Diltiazem and Toprol. Apixaban for anticoagulation currently asymptomatic Left Knee Pain: 2/2 severe OA Appreciate Orthopedics help S/P Steroid Injection PT/OT Pain control Chronic Diastolic CHF No signs of decompensation continue home meds as able Hypothyroidism: continue levothyroxine Ambulatory Dysfunction: Patient has been refusing PT/OT Patient is dependent to Gil lift in all transfers and refuses to stand Patient is unsafe to return home due to decreased functional mobility and safety issues Will benefit form SNF/LTAC placement Patient's insists on discharging the patient home Office of Aging were Involved Court hearing on January 02 to determine patients POA. Patient can not be discharged to home and patients (POA) refuses placement. Case management following DVT Px: On Apixaban Code Status: Full Code Disposition: To be determined Vital Signs: Date Time Temp Pulse Resp B/P (MAP) Pulse Ox O2 Delivery O2 Flow Rate FiO2 12/27/17 15:14 36.5 106 18 135/85 (102) 95 Room Air 12/27/17 08:00 Room Air 12/27/17 07:38 37.0 81 20 135/82 (99) 96 Room Air 12/26/17 23:30 Room Air 12/26/17 23:25 36.7 95 20 158/85 (109) 94 Room Air
[2017-12-27 18:18] VITALS: PULSE 95; O2SAT 95
[2017-12-27] MEDS: LATANOPROST 0.005% OP SOLN 2.5 ML BTL OPB SCH (21:50)
[2017-12-27] MEDS: LEVALBUTEROL 0.63MG/3 ML NEB INH PRN (22:21)
[2017-12-27] MEDS: IPRATROPIUM BROMIDE NEB SOLN 0.02% 2.5 ML VIAL INH PRN (22:21)
[2017-12-27 22:22] VITALS: PULSE 81; O2SAT 96
[2017-12-27 23:00] VITALS: BP 135/68; PULSE 86; TEMP 36.5; O2SAT 93
[2017-12-28] MEDS: MICONAZOLE NITRATE POWDER 43 GM EXT SCH ×3 (03:01→21:11)
[2017-12-28] MEDS: LEVOTHYROXINE 100 MCG TAB PO SCH (06:02)
[2017-12-28 08:18] VITALS: BP 138/77; PULSE 78; TEMP 36.6; O2SAT 98
[2017-12-28] MEDS: APIXABAN 2.5 MG TAB PO SCH ×2 (08:38→21:10)
[2017-12-28] MEDS: DILTIAZEM HCL 120 MG EXT REL CAP PO SCH (08:39)
[2017-12-28] MEDS: METOPROLOL SUCC 50MG EXT REL TAB PO SCH (08:39)
[2017-12-28] MEDS: ATORVASTATIN 40 MG TAB PO SCH (08:39)
[2017-12-28] MEDS: ASPIRIN 81 MG ECTAB PO SCH (08:39)
[2017-12-28] MEDS: OXYBUTYNIN CHLORIDE 5 MG TABCR PO SCH (08:39)
[2017-12-28] MEDS: CeleBREX 200 MG CAP PO SCH (08:39)
[2017-12-28] MEDS: POTASSIUM CHLORIDE 20 MEQ TABCR PO SCH (08:39)
[2017-12-28 15:34] VITALS: BP 119/66; PULSE 111; TEMP 37; O2SAT 94
--- NOTE | 2017-12-28 17:31 | Progress Note ---
Internal Med Progress Note Date of Service: Dec 28, 2017. Provider Documentation: SUBJECTIVE: no complain of SOB or cough no new complain no pain in left knee continues to refuse medications OBJECTIVE: Vital Signs-as noted below Exam: GEN:Obese , no sign of distress , flat affect HEENT: sclera non icteric HEART: regular S1/S2 LUNGS: diminished breath sound , no wheeze or rales noted ABD: obese /soft, non-tender, non-distended, EXTREMITY: + 2 bilat lower lower ext edema , with chronic venous stasis changes NEURO: forgetfulness /baseline dementia ? no focal neurological deficit, oriented to place and person only Lab data as noted below. ASSESSMENT & PLAN: ACUTE ON CHRONIC HYPOXEMIC RESPIRATORY FAILURE Resolved: Respiratory status is baseline has baseline COPD /and DEONDRE no compliant with supplemental 02 presented with hypoxia possible secondary to atelectasis /recently treated for HCAP Cxray shows chronic infiltrate hypoxia has resolved adequate oxygenation in room air per nursing , pt desaturates to upper 80's while sleeping ( suggestive of DEONDRE ) instructed for supplemental 02 while sleeping and nap time -pt is refuses to wear nasal canula cont PRN Neb tx and INH CONFUSION /METABOLIC ENCEPHALOPATHY : resolved , awake and alert possible due to hypoxemia has baseline dementia mental status improved to baseline no evidence of confusion refusing all meds and Lab draws -because she does not want the meds /and hates needle sticks observe for sundowning /Hospital associated delirium CHRONIC A FIB : -rate controlled with Diltiazem and Toprol. on anticoagulation with Apixaban LEFT KNEE PAIN secondary to severe OA- seen by Ortho and offered cortisone injection and Celebrex, pt declined them all Status post a left knee steroid injection by orthopedics PT/OT eval requested pt is non co operative to Physical therapy CHRONIC DIASTOLIC HEART FAILURE : compensated HYPOTHYROIDISM : cont levothyroxine SEVERE AMBULATORY DYSFUNCTION unable to transfer or change position without assistance needs continued PT/OT /supportive care at a skilled facility then transition to terminal worker care not safe to return home pt and her continues to insist on going home then requiring admission in few hours due to fall multiple discussions with pt and her in past admission regarding safety issue office of aging involved scheduled to have a court hearing on 01/02/18 appoint guardianship and NH placement order Full Code DVT PROPHYLAXIS Apixaban DISPOSITION -uncertain at this time. office of aging involved due to concern for safety issues adamantly refuses fpc,however, there is a court order mandating this. social service following for discharge planning court hearing on 01/02/18 appoint guardianship and NH placement order Vital Signs: Date Time Temp Pulse Resp B/P (MAP) Pulse Ox O2 Delivery O2 Flow Rate FiO2 12/28/17 15:34 37.0 111 18 119/66 (83) 94 Room Air 12/28/17 09:30 Room Air 12/28/17 08:18 36.6 78 18 138/77 (97) 98 Room Air 12/28/17 00:22 Room Air 12/27/17 23:00 36.5 86 16 135/68 (90) 93 Room Air 12/27/17 22:22 81 18 96 Room Air
[2017-12-28] MEDS: LATANOPROST 0.005% OP SOLN 2.5 ML BTL OPB SCH (21:10)
[2017-12-28 23:25] VITALS: BP 135/85; PULSE 80; TEMP 36.3; O2SAT 95
[2017-12-29] MEDS: LEVOTHYROXINE 100 MCG TAB PO SCH (05:31)
[2017-12-29 06:57] VITALS: BP 133/83; PULSE 81; TEMP 36.7; O2SAT 94
[2017-12-29] MEDS: DILTIAZEM HCL 120 MG EXT REL CAP PO SCH (09:00)
[2017-12-29] MEDS: ASPIRIN 81 MG ECTAB PO SCH (09:00)
[2017-12-29] MEDS: METOPROLOL SUCC 50MG EXT REL TAB PO SCH (09:00)
[2017-12-29] MEDS: OXYBUTYNIN CHLORIDE 5 MG TABCR PO SCH (09:00)
[2017-12-29] MEDS: MICONAZOLE NITRATE POWDER 43 GM EXT SCH ×2 (09:00→21:10)
[2017-12-29] MEDS: POTASSIUM CHLORIDE 20 MEQ TABCR PO SCH (09:00)
[2017-12-29] MEDS: APIXABAN 2.5 MG TAB PO SCH ×2 (09:00→21:09)
[2017-12-29] MEDS: CeleBREX 200 MG CAP PO SCH (09:00)
[2017-12-29] MEDS: ATORVASTATIN 40 MG TAB PO SCH (09:00)
[2017-12-29 15:10] VITALS: BP 122/60; PULSE 103; TEMP 36.3; O2SAT 92
--- NOTE | 2017-12-29 18:41 | Progress Note ---
Internal Med Progress Note Date of Service: Dec 29, 2017. Provider Documentation: SUBJECTIVE: sitting up on chair , doing cross word puzzle, offers no complain no cough or SOB no fever or chills OBJECTIVE: Vital Signs-as noted below Exam: GEN:Obese , no sign of distress , flat affect HEENT: sclera non icteric HEART: regular S1/S2 LUNGS: diminished breath sound , no wheeze or rales noted ABD: obese /soft, non-tender, non-distended, EXTREMITY: + 2 bilat lower lower ext edema , with chronic venous stasis changes NEURO: forgetfulness /baseline dementia ? no focal neurological deficit, oriented to place and person only Lab data as noted below. ASSESSMENT & PLAN: ACUTE ON CHRONIC HYPOXEMIC RESPIRATORY FAILURE Resolved: Respiratory status is baseline has baseline COPD /and DEONDRE no compliant with supplemental 02 presented with hypoxia possible secondary to atelectasis /recently treated for HCAP Cxray shows chronic infiltrate hypoxia has resolved adequate oxygenation in room air per nursing , pt desaturates to upper 80's while sleeping ( suggestive of DEONDRE ) instructed for supplemental 02 while sleeping and nap time -pt is refuses to wear nasal canula cont PRN Neb tx and INH CONFUSION /METABOLIC ENCEPHALOPATHY : resolved , awake and alert possible due to hypoxemia has baseline dementia mental status improved to baseline no evidence of confusion refusing all meds and Lab draws -because she does not want the meds /and hates needle sticks observe for sundowning /Hospital associated delirium CHRONIC A FIB : -rate controlled with Diltiazem and Toprol. on anticoagulation with Apixaban LEFT KNEE PAIN secondary to severe OA- seen by Ortho and offered cortisone injection and Celebrex, pt declined them all Status post a left knee steroid injection by orthopedics PT/OT eval requested pt is non co operative to Physical therapy CHRONIC DIASTOLIC HEART FAILURE : compensated HYPOTHYROIDISM : cont levothyroxine SEVERE AMBULATORY DYSFUNCTION unable to transfer or change position without assistance needs continued PT/OT /supportive care at a skilled facility then transition to manager intermediate care not safe to return home pt and her continues to insist on going home then requiring admission in few hours due to fall multiple discussions with pt and her in past admission regarding safety issue office of aging involved scheduled to have a court hearing on 01/02/18 appoint guardianship and NH placement order Full Code DVT PROPHYLAXIS Apixaban DISPOSITION -uncertain at this time. office of aging involved due to concern for safety issues adamantly refuses jail,however, there is a court order mandating this. social service following for discharge planning court hearing on 01/02/18 appoint guardianship and NH placement order Vital Signs: Date Time Temp Pulse Resp B/P (MAP) Pulse Ox O2 Delivery O2 Flow Rate FiO2 12/29/17 15:10 36.3 103 16 122/60 (80) 92 Room Air 12/29/17 07:50 Room Air 12/29/17 06:57 36.7 81 18 133/83 (100) 94 Room Air 12/28/17 23:55 Room Air 12/28/17 23:25 36.3 80 20 135/85 (102) 95 Room Air
[2017-12-29] MEDS: LATANOPROST 0.005% OP SOLN 2.5 ML BTL OPB SCH (21:09)
[2017-12-29 23:40] VITALS: BP 106/74; PULSE 108; TEMP 36.5; O2SAT 94
[2017-12-30] MEDS: LEVOTHYROXINE 100 MCG TAB PO SCH (05:23)
[2017-12-30 08:16] VITALS: BP 153/83; PULSE 86; TEMP 36.4; O2SAT 96
[2017-12-30] MEDS: ASPIRIN 81 MG ECTAB PO SCH (08:40)
[2017-12-30] MEDS: APIXABAN 2.5 MG TAB PO SCH ×2 (08:40→21:24)
[2017-12-30] MEDS: OXYBUTYNIN CHLORIDE 5 MG TABCR PO SCH (08:42)
[2017-12-30] MEDS: MICONAZOLE NITRATE POWDER 43 GM EXT SCH ×2 (08:42→21:24)
[2017-12-30] MEDS: CeleBREX 200 MG CAP PO SCH (08:42)
[2017-12-30] MEDS: POTASSIUM CHLORIDE 20 MEQ TABCR PO SCH (08:43)
[2017-12-30] MEDS: ATORVASTATIN 40 MG TAB PO SCH (08:43)
[2017-12-30] MEDS: METOPROLOL SUCC 50MG EXT REL TAB PO SCH (08:43)
[2017-12-30] MEDS: DILTIAZEM HCL 120 MG EXT REL CAP PO SCH (08:43)
[2017-12-30 09:19] VITALS: O2SAT 96
[2017-12-30 12:21] VITALS: BP 137/76; PULSE 87; TEMP 36.5; O2SAT 97
[2017-12-30 15:04] VITALS: BP 122/66; PULSE 87; TEMP 36.6; O2SAT 97
[2017-12-30] MEDS: LATANOPROST 0.005% OP SOLN 2.5 ML BTL OPB SCH (21:24)
[2017-12-30 22:45] VITALS: BP 130/87; PULSE 91; TEMP 36.4; O2SAT 95
[2017-12-31] MEDS: LEVOTHYROXINE 100 MCG TAB PO SCH (05:45)
[2017-12-31 07:54] VITALS: BP 148/90; PULSE 85; TEMP 36.7; O2SAT 92
[2017-12-31 08:00] VITALS: O2SAT 92
[2017-12-31] MEDS: APIXABAN 2.5 MG TAB PO SCH ×2 (08:27→20:53)
[2017-12-31] MEDS: ASPIRIN 81 MG ECTAB PO SCH (08:27)
[2017-12-31] MEDS: POTASSIUM CHLORIDE 20 MEQ TABCR PO SCH (08:29)
[2017-12-31] MEDS: METOPROLOL SUCC 50MG EXT REL TAB PO SCH (08:29)
[2017-12-31] MEDS: DILTIAZEM HCL 120 MG EXT REL CAP PO SCH (08:29)
[2017-12-31] MEDS: ATORVASTATIN 40 MG TAB PO SCH (08:29)
[2017-12-31] MEDS: CeleBREX 200 MG CAP PO SCH (08:30)
[2017-12-31] MEDS: OXYBUTYNIN CHLORIDE 5 MG TABCR PO SCH (08:30)
[2017-12-31] MEDS: MICONAZOLE NITRATE POWDER 43 GM EXT SCH ×2 (08:30→20:56)
--- NOTE | 2017-12-31 09:13 | Progress Note ---
Internal Med Progress Note Date of Service: Dec 30, 2017. Provider Documentation: late entry pt seen at 3 pm on 12/30/17 SUBJECTIVE: Denies of any complain says her knees her not bothering her any more OBJECTIVE: Vital Signs-as noted below Exam: GEN:Obese , no sign of distress , flat affect HEENT: sclera non icteric HEART: regular S1/S2 LUNGS: diminished breath sound , no wheeze or rales noted ABD: obese /soft, non-tender, non-distended, EXTREMITY: + 2 bilat lower lower ext edema , with chronic venous stasis changes NEURO: forgetfulness /baseline dementia ? no focal neurological deficit, oriented to place and person only Lab data as noted below. ASSESSMENT & PLAN: ACUTE ON CHRONIC HYPOXEMIC RESPIRATORY FAILURE Resolved: Respiratory status is baseline has baseline COPD /and DEONDRE no compliant with supplemental 02 presented with hypoxia possible secondary to atelectasis /recently treated for HCAP Cxray shows chronic infiltrate hypoxia has resolved adequate oxygenation in room air per nursing , pt desaturates to upper 80's while sleeping ( suggestive of DEONDRE ) instructed for supplemental 02 while sleeping and nap time -pt is refuses to wear nasal canula cont PRN Neb tx and INH CONFUSION /METABOLIC ENCEPHALOPATHY : resolved , awake and alert possible due to hypoxemia has baseline dementia mental status improved to baseline no evidence of confusion refusing all meds and Lab draws -because she does not want the meds /and hates needle sticks observe for sundowning /Hospital associated delirium CHRONIC A FIB : -rate controlled with Diltiazem and Toprol. on anticoagulation with Apixaban LEFT KNEE PAIN secondary to severe OA- seen by Ortho and offered cortisone injection and Celebrex, pt declined them all Status post a left knee steroid injection by orthopedics PT/OT eval requested pt is non co operative to Physical therapy CHRONIC DIASTOLIC HEART FAILURE : compensated HYPOTHYROIDISM : cont levothyroxine SEVERE AMBULATORY DYSFUNCTION unable to transfer or change position without assistance needs continued PT/OT /supportive care at a skilled facility then transition to nursing home care not safe to return home pt and her continues to insist on going home then requiring admission in few hours due to fall multiple discussions with pt and her in past admission regarding safety issue office of aging involved scheduled to have a court hearing on 01/02/18 appoint guardianship and NH placement order Full Code DVT PROPHYLAXIS Apixaban DISPOSITION -uncertain at this time. office of aging involved due to concern for safety issues adamantly refuses [facility],however, there is a court order mandating this. social service following for discharge planning court hearing on 01/02/18 appoint guardianship and NH placement order Vital Signs: Date Time Temp Pulse Resp B/P (MAP) Pulse Ox O2 Delivery O2 Flow Rate FiO2 12/31/17 08:00 92 Room Air 12/31/17 07:54 36.7 85 24 148/90 (109) 92 Room Air 12/31/17 07:25 Room Air 12/30/17 23:35 Room Air 12/30/17 22:45 36.4 91 18 130/87 (101) 95 Room Air 12/30/17 15:45 Room Air 12/30/17 15:04 36.6 87 16 122/66 (84) 97 Room Air 87 12/30/17 12:21 36.5 87 24 137/76 (96) 97 Room Air 12/30/17 09:19 96 Room Air
[2017-12-31 14:15] VITALS: BP 149/66; PULSE 86; TEMP 36.7; O2SAT 97
[2017-12-31 15:13] VITALS: BP 141/76; PULSE 100; PULSE 102; TEMP 36.6; O2SAT 93
[2017-12-31 16:00] VITALS: O2SAT 93
--- NOTE | 2017-12-31 17:43 | Progress Note ---
Internal Med Progress Note Date of Service: Dec 31, 2017. Provider Documentation: SUBJECTIVE: sitting on the chair comfortably could not remember what she ate for lunch ambulated to bathroom as per denies any pain or sob afebrile seems comfortable OBJECTIVE: Vital Signs-as noted below Exam: General-alert and awake . Not in distress ENT-normal hearing Neck-supple Lungs-cta b/l no wheezing or crackles Heart-s1 and s2 heard regular rate and rhythm,no Murmur Abdomen-soft bowel sounds present non tender no distension Extremities-lower extremity edema present left knee tender Neuro-alert and awake moves extremities Lab data as noted below. ASSESSMENT & PLAN: Patient was recently admitted to [facility] 11/05 through 11/17 for pneumonia and atrial fibrillation. At that time it was highly advised for the patient to go to a nursing facility however and patient refused and patient was discharged home. Since that time, temporary court order was obtained to arrange for patient to be placed in a half-way. Follow-up court order for permanent guardianship is scheduled for later this month.Patient was at [facility] and came with AMS and hypoxia? . Was treated for possible recurrent pneumonia. BUT ID recommended to stop abx as procalcitonin normal and mostly old infiltrates on cxr. Doing fine off of abx. wants patient to have left knee shot but patient refused. is somewhat demanding.Plan for placement though again and patient wants to go home.Awaiting placement ACUTE ON CHRONIC HYPOXEMIC RESPIRATORY FAILURE Resolved: Respiratory status is baseline hx of COPD /and DEONDRE non compliant with supplemental 02 presented with hypoxia possible secondary to atelectasis /recently treated for HCAP received abx for first few days and ID was on board did ok after stopping abx Cxr ray shows possibly chronic infiltrate hypoxia has resolved as per nursing , pt desaturates to upper 80's while sleeping ( suggestive of DEONDRE ) to use oxygen while sleeping -pt seems to refuses to wear nasal canula on PRN Neb tx and INH CONFUSION /METABOLIC ENCEPHALOPATHY : resolved , awake and alert possible due to hypoxemia has dementia seems at baseline monitor for delirium CHRONIC A FIB : rate controlled with Diltiazem and Toprol. on anticoagulation with Eliquis LEFT KNEE PAIN secondary to severe OA- seen by Ortho and offered cortisone injection and Celebrex, pt initially declined them all But Status post a left knee steroid injection by orthopedics ORTho recommends: WBAT w/ assist and walker Nonsurgical candidate at this time PT/OT eval requested but non cooperative CHRONIC DIASTOLIC HEART FAILURE : compensated will monitor HYPOTHYROIDISM : on levothyroxine SEVERE AMBULATORY DYSFUNCTION unable to transfer or change position without assistance Needs supportive care Most likely needs terminal block assembler facility not safe to return home pt and her insists on going home office of aging involved scheduled to have a court hearing on 01/02/18 appoint guardianship and NH placement order Full Code DVT PROPHYLAXIS Apixaban DISPOSITION To be determined office of aging involved due to concern for safety issues and patient wants to go home and refusing half-way.. social service following for discharge planning court hearing on 01/02/18 appoint guardianship and NH placement order Vital Signs: Date Time Temp Pulse Resp B/P (MAP) Pulse Ox O2 Delivery O2 Flow Rate FiO2 12/31/17 16:00 93 Room Air 12/31/17 15:13 36.6 102 18 141/76 (97) 93 Room Air 100 12/31/17 14:15 36.7 86 24 149/66 (93) 97 Room Air 12/31/17 08:00 92 Room Air 12/31/17 07:54 36.7 85 24 148/90 (109) 92 Room Air 12/31/17 07:25 Room Air 12/30/17 23:35 Room Air 12/30/17 22:45 36.4 91 18 130/87 (101) 95 Room Air
[2017-12-31] MEDS: LATANOPROST 0.005% OP SOLN 2.5 ML BTL OPB SCH (20:53)
[2017-12-31 22:48] VITALS: BP 142/82; PULSE 87; TEMP 36.4; O2SAT 96
[2018-01-01] MEDS: LEVOTHYROXINE 100 MCG TAB PO SCH (05:29)
[2018-01-01 07:33] VITALS: BP 119/76; PULSE 94; TEMP 36.4; O2SAT 93
[2018-01-01] MEDS: APIXABAN 2.5 MG TAB PO SCH ×2 (08:21→20:25)
[2018-01-01] MEDS: DILTIAZEM HCL 120 MG EXT REL CAP PO SCH (08:23)
[2018-01-01] MEDS: CeleBREX 200 MG CAP PO SCH (08:23)
[2018-01-01] MEDS: ASPIRIN 81 MG ECTAB PO SCH (08:23)
[2018-01-01] MEDS: ATORVASTATIN 40 MG TAB PO SCH (08:23)
[2018-01-01] MEDS: MICONAZOLE NITRATE POWDER 43 GM EXT SCH ×2 (08:23→21:56)
[2018-01-01] MEDS: POTASSIUM CHLORIDE 20 MEQ TABCR PO SCH (08:23)
[2018-01-01] MEDS: OXYBUTYNIN CHLORIDE 5 MG TABCR PO SCH (08:23)
[2018-01-01] MEDS: METOPROLOL SUCC 50MG EXT REL TAB PO SCH (08:23)
[2018-01-01 14:52] VITALS: BP 148/83; PULSE 94; TEMP 36.8; O2SAT 93
--- NOTE | 2018-01-01 15:56 | Progress Note ---
Internal Med Progress Note Date of Service: Jan 01, 2018. Provider Documentation: SUBJECTIVE: sitting on the chair comfortably and eating fruits denies chest pain or sob afebrile not ambulating denies any pain OBJECTIVE: Vital Signs-as noted below Exam: General-alert and awake . Not in distress ENT-normal hearing Neck-supple Lungs-cta b/l no wheezing or crackles Heart-s1 and s2 heard regular rate and rhythm,no Murmur Abdomen-soft bowel sounds present non tender no distension Extremities-lower extremity edema present no erythema seen Neuro-alert and awake moves extremities Lab data as noted below. ASSESSMENT & PLAN: Patient was recently admitted to [facility] 11/05 through 11/17 for pneumonia and atrial fibrillation. At that time it was highly advised for the patient to go to a nursing facility however and patient refused and patient was discharged home. Since that time, temporary court order was obtained to arrange for patient to be placed in a long term. Follow-up court order for permanent guardianship is scheduled for later this month.Patient was at [facility] and came with AMS and hypoxia? . Was treated for possible recurrent pneumonia. BUT ID recommended to stop abx as procalcitonin normal and mostly old infiltrates on cxr. Doing fine off of abx. wants patient to have left knee shot but patient refused but later had the shot. is somewhat demanding.Plan for placement though again and patient wants to go home.Awaiting placement ACUTE ON CHRONIC HYPOXEMIC RESPIRATORY FAILURE Resolved: Respiratory status is baseline hx of COPD /and DEONDRE non compliant with supplemental 02 presented with hypoxia possible secondary to atelectasis /recently treated for HCAP received abx for first few days and ID was on board did ok after stopping abx Cxr ray shows possibly chronic infiltrate hypoxia has resolved as per nursing , pt desaturates to upper 80's while sleeping ( suggestive of DEONDRE ) to use oxygen while sleeping -pt seems to refuses to wear nasal canula on PRN Neb tx and INH stable currently CONFUSION /METABOLIC ENCEPHALOPATHY : resolved , awake and alert possible due to hypoxemia has dementia seems at baseline currently Will monitor for delirium CHRONIC A FIB : rate controlled with Diltiazem and Toprol. on anticoagulation with Eliquis stable LEFT KNEE PAIN secondary to severe OA- seen by Ortho and offered cortisone injection and Celebrex, pt initially declined them all But Status post a left knee steroid injection by orthopedics ORTho recommends: WBAT w/ assist and walker Nonsurgical candidate at this time PT/OT eval requested but non cooperative plan for placement CHRONIC DIASTOLIC HEART FAILURE : compensated will monitor HYPOTHYROIDISM : on levothyroxine SEVERE AMBULATORY DYSFUNCTION unable to transfer or change position without assistance Needs supportive care Most likely needs intermediate facility not safe to return home pt and her insists on going home office of aging involved scheduled to have a court hearing on 01/02/18 appoint guardianship and NH placement order-await the hearing Full Code DVT PROPHYLAXIS Apixaban DISPOSITION To be determined office of aging involved due to concern for safety issues and patient wants to go home and refusing long term.. social service following for discharge planning court hearing on 01/02/18 appoint guardianship and NH placement order-await the hearing Vital Signs: Date Time Temp Pulse Resp B/P (MAP) Pulse Ox O2 Delivery O2 Flow Rate FiO2 01/01/18 14:52 36.8 94 18 148/83 (104) 93 01/01/18 09:00 Room Air 01/01/18 07:33 36.4 94 16 119/76 (90) 93 Room Air 01/01/18 00:10 Room Air 12/31/17 22:48 36.4 87 18 142/82 (102) 96 Room Air 12/31/17 16:00 93 Room Air
[2018-01-01] MEDS: LATANOPROST 0.005% OP SOLN 2.5 ML BTL OPB SCH (20:25)
[2018-01-01 23:11] VITALS: BP 150/79; PULSE 80; TEMP 36.7; O2SAT 95
[2018-01-02] MEDS: LEVOTHYROXINE 100 MCG TAB PO SCH (05:35)
[2018-01-02 07:28] VITALS: BP 159/68; PULSE 86; TEMP 36.5; O2SAT 95
[2018-01-02] MEDS: POTASSIUM CHLORIDE 20 MEQ TABCR PO SCH (09:00)
[2018-01-02] MEDS: DILTIAZEM HCL 120 MG EXT REL CAP PO SCH (09:00)
[2018-01-02] MEDS: OXYBUTYNIN CHLORIDE 5 MG TABCR PO SCH (09:00)
[2018-01-02] MEDS: CeleBREX 200 MG CAP PO SCH (09:00)
[2018-01-02] MEDS: ATORVASTATIN 40 MG TAB PO SCH (09:00)
[2018-01-02] MEDS: METOPROLOL SUCC 50MG EXT REL TAB PO SCH (09:00)
[2018-01-02] MEDS: APIXABAN 2.5 MG TAB PO SCH ×2 (09:43→20:42)
[2018-01-02] MEDS: ASPIRIN 81 MG ECTAB PO SCH (09:44)
[2018-01-02] MEDS: MICONAZOLE NITRATE POWDER 43 GM EXT SCH ×2 (09:49→20:43)
[2018-01-02 14:50] VITALS: BP 137/78; PULSE 103; TEMP 36.6; O2SAT 96
--- NOTE | 2018-01-02 18:23 | Progress Note ---
Internal Med Progress Note Date of Service: Jan 02, 2018. Provider Documentation: SUBJECTIVE: sitting on the chair comfortably in room- he did not go for court hearing today patient says she is doing fine eating ok denies any pain worried that patient not getting much therapy OBJECTIVE: Vital Signs-as noted below Exam: General-alert and awake . Not in distress ENT-normal hearing Neck-supple Lungs-cta b/l no wheezing or crackles Heart-s1 and s2 heard regular rate and rhythm,no Murmur Abdomen-soft bowel sounds present non tender no distension Extremities-lower extremity edema present no erythema seen Neuro-alert and awake moves extremities Lab data as noted below. ASSESSMENT & PLAN: Patient was recently admitted to [facility] 11/05 through 11/17 for pneumonia and atrial fibrillation. At that time it was highly advised for the patient to go to a nursing facility however and patient refused and patient was discharged home. Since that time, temporary court order was obtained to arrange for patient to be placed in a shelter. Follow-up court order for permanent guardianship is scheduled for later this month.Patient was at [facility] and came with AMS and hypoxia? . Was treated for possible recurrent pneumonia. BUT ID recommended to stop abx as procalcitonin normal and mostly old infiltrates on cxr. Doing fine off of abx. wants patient to have left knee shot but patient refused but later had the shot. is somewhat demanding.Plan for placement though again and patient wants to go home.Awaiting court order today Stable conditions: ACUTE ON CHRONIC HYPOXEMIC RESPIRATORY FAILURE Resolved: Respiratory status is baseline hx of COPD /and DEONDRE non compliant with supplemental 02 presented with hypoxia possible secondary to atelectasis /recently treated for HCAP received abx for first few days and ID was on board did ok after stopping abx Cxr ray shows possibly chronic infiltrate hypoxia has resolved as per nursing , pt desaturates to upper 80's while sleeping ( suggestive of DEONDRE ) to use oxygen while sleeping -pt seems to refuses to wear nasal canula on PRN Neb tx and INH stable currently CONFUSION /METABOLIC ENCEPHALOPATHY : resolved , awake and alert possible due to hypoxemia has dementia seems at baseline currently Will monitor for delirium CHRONIC A FIB : rate controlled with Diltiazem and Toprol. on anticoagulation with Eliquis stable LEFT KNEE PAIN secondary to severe OA- seen by Ortho and offered cortisone injection and Celebrex, pt initially declined them all But Status post a left knee steroid injection by orthopedics ORTho recommends: WBAT w/ assist and walker Nonsurgical candidate at this time PT/OT eval requested but non cooperative plan for placement CHRONIC DIASTOLIC HEART FAILURE : compensated will monitor HYPOTHYROIDISM : on levothyroxine SEVERE AMBULATORY DYSFUNCTION unable to transfer or change position without assistance Needs supportive care Most likely needs [facility] facility not safe to return home pt and her insists on going home office of aging involved scheduled to have a court hearing on 01/02/18 appoint guardianship and NH placement order-await the hearing Full Code DVT PROPHYLAXIS Apixaban DISPOSITION To be determined office of aging involved due to concern for safety issues and patient wants to go home and refusing shelter.. social service following for discharge planning court hearing on 01/02/18 appoint guardianship and NH placement order-await the hearing Vital Signs: Date Time Temp Pulse Resp B/P (MAP) Pulse Ox O2 Delivery O2 Flow Rate FiO2 01/02/18 14:50 36.6 103 18 137/78 (97) 96 01/02/18 09:30 Room Air 01/02/18 07:28 36.5 86 18 159/68 (98) 95 Room Air 01/01/18 23:25 Room Air 01/01/18 23:11 36.7 80 16 150/79 (102) 95 Room Air 01/01/18 19:35 Room Air
[2018-01-02] MEDS: LATANOPROST 0.005% OP SOLN 2.5 ML BTL OPB SCH (20:42)
[2018-01-02 23:49] VITALS: BP 133/83; PULSE 94; TEMP 36.4; O2SAT 95
[2018-01-03 00:15] VITALS: O2SAT 95
[2018-01-03] MEDS: LEVOTHYROXINE 100 MCG TAB PO SCH (05:50)
[2018-01-03 08:03] VITALS: BP 132/82; PULSE 83; TEMP 36.3; O2SAT 92
[2018-01-03] MEDS: OXYBUTYNIN CHLORIDE 5 MG TABCR PO SCH (08:46)
[2018-01-03] MEDS: CeleBREX 200 MG CAP PO SCH (08:47)
[2018-01-03] MEDS: APIXABAN 2.5 MG TAB PO SCH ×2 (08:48→20:51)
[2018-01-03] MEDS: MICONAZOLE NITRATE POWDER 43 GM EXT SCH ×2 (08:48→22:08)
[2018-01-03] MEDS: DILTIAZEM HCL 120 MG EXT REL CAP PO SCH (08:48)
[2018-01-03] MEDS: ASPIRIN 81 MG ECTAB PO SCH (08:48)
[2018-01-03] MEDS: POTASSIUM CHLORIDE 20 MEQ TABCR PO SCH (08:48)
[2018-01-03] MEDS: METOPROLOL SUCC 50MG EXT REL TAB PO SCH (08:48)
[2018-01-03] MEDS: ATORVASTATIN 40 MG TAB PO SCH (08:48)
[2018-01-03 15:25] VITALS: BP 127/78; PULSE 86; TEMP 36.7; O2SAT 90
--- NOTE | 2018-01-03 16:27 | Progress Note ---
Internal Med Progress Note Date of Service: Jan 03, 2018. Provider Documentation: SUBJECTIVE: sitting on the chair comfortably says she is eating ok ays she has no pain no sob says moved bowels and doesn't want to be examined OBJECTIVE: Vital Signs-as noted below Exam: Does not want to be examined Lab data as noted below. ASSESSMENT & PLAN: Patient was recently admitted to [facility] 11/05 through 11/17 for pneumonia and atrial fibrillation. At that time it was highly advised for the patient to go to a nursing facility however and patient refused and patient was discharged home. Since that time, temporary court order was obtained to arrange for patient to be placed in a [facility]. Follow-up court order for permanent guardianship is scheduled for later this month.Patient was at [facility] and came with AMS and hypoxia? . Was treated for possible recurrent pneumonia. BUT ID recommended to stop abx as procalcitonin normal and mostly old infiltrates on cxr. Doing fine off of abx. wants patient to have left knee shot but patient refused but later had the shot. is somewhat demanding.Plan for placement though again and patient wants to go home. Had court order on 01/02/18- awaiting judgement Stable conditions: ACUTE ON CHRONIC HYPOXEMIC RESPIRATORY FAILURE Resolved: Respiratory status is baseline hx of COPD /and DEONDRE non compliant with supplemental 02 presented with hypoxia possible secondary to atelectasis /recently treated for HCAP received abx for first few days and ID was on board did ok after stopping abx Cxr ray shows possibly chronic infiltrate hypoxia has resolved as per nursing , pt desaturates to upper 80's while sleeping ( suggestive of DEONDRE ) to use oxygen while sleeping -pt seems to refuses to wear nasal canula on PRN Neb tx and INH stable currently CONFUSION /METABOLIC ENCEPHALOPATHY : resolved , awake and alert possible due to hypoxemia has dementia seems at baseline currently Will monitor for delirium CHRONIC A FIB : rate controlled with Diltiazem and Toprol. on anticoagulation with Eliquis stable LEFT KNEE PAIN secondary to severe OA- seen by Ortho and offered cortisone injection and Celebrex, pt initially declined them all But Status post a left knee steroid injection by orthopedics ORTho recommends: WBAT w/ assist and walker Nonsurgical candidate at this time PT/OT eval requested but non cooperative plan for placement CHRONIC DIASTOLIC HEART FAILURE : compensated will monitor HYPOTHYROIDISM : on levothyroxine SEVERE AMBULATORY DYSFUNCTION unable to transfer or change position without assistance Needs supportive care Most likely needs [facility] facility not safe to return home pt and her insists on going home office of aging involved scheduled to have a court hearing on 01/02/18 appoint guardianship and NH placement order-await the hearing Full Code DVT PROPHYLAXIS Apixaban DISPOSITION To be determined office of aging involved due to concern for safety issues and patient wants to go home and refusing [facility].. social service following for discharge planning court hearing on 01/02/18 appoint guardianship and NH placement order-await the hearing Vital Signs: Date Time Temp Pulse Resp B/P (MAP) Pulse Ox O2 Delivery O2 Flow Rate FiO2 01/03/18 15:25 36.7 86 18 127/78 (94) 90 Room Air 01/03/18 08:03 36.3 83 17 132/82 (99) 92 Room Air 01/03/18 00:15 95 Room Air 2.0 01/02/18 23:49 36.4 94 14 133/83 (100) 95 Room Air 01/02/18 19:45 Room Air
[2018-01-03] MEDS: LATANOPROST 0.005% OP SOLN 2.5 ML BTL OPB SCH (20:51)
[2018-01-03 23:35] VITALS: BP 142/66; PULSE 94; TEMP 37.1; O2SAT 94
[2018-01-03 23:50] VITALS: O2SAT 94
[2018-01-04] MEDS: LEVOTHYROXINE 100 MCG TAB PO SCH (05:57)
[2018-01-04 08:09] VITALS: BP 135/66; PULSE 99; TEMP 36.6; O2SAT 91
[2018-01-04] MEDS: APIXABAN 2.5 MG TAB PO SCH ×2 (09:00→20:50)
[2018-01-04] MEDS: CeleBREX 200 MG CAP PO SCH (09:00)
[2018-01-04] MEDS: OXYBUTYNIN CHLORIDE 5 MG TABCR PO SCH (09:00)
[2018-01-04] MEDS: ASPIRIN 81 MG ECTAB PO SCH (09:00)
[2018-01-04] MEDS: POTASSIUM CHLORIDE 20 MEQ TABCR PO SCH (09:00)
[2018-01-04] MEDS: METOPROLOL SUCC 50MG EXT REL TAB PO SCH (09:00)
[2018-01-04] MEDS: ATORVASTATIN 40 MG TAB PO SCH (09:00)
[2018-01-04] MEDS: DILTIAZEM HCL 120 MG EXT REL CAP PO SCH (09:00)
[2018-01-04] MEDS: MICONAZOLE NITRATE POWDER 43 GM EXT SCH ×2 (09:01→21:00)
[2018-01-04 15:26] VITALS: BP 105/64; PULSE 103; TEMP 36.4; O2SAT 91
--- NOTE | 2018-01-04 16:49 | Progress Note ---
Internal Med Progress Note Date of Service: Jan 04, 2018. Provider Documentation: SUBJECTIVE: sitting on the chair comfortably says no pain or sob no nausea eating ok refuses to examine the patient even on repeated requests OBJECTIVE: Vital Signs-as noted below Exam: Does not want to be examined Lab data as noted below. ASSESSMENT & PLAN: Patient was recently admitted to [facility] 11/05 through 11/17 for pneumonia and atrial fibrillation. At that time it was highly advised for the patient to go to a nursing facility however and patient refused and patient was discharged home. Since that time, temporary court order was obtained to arrange for patient to be placed in a [facility]. Follow-up court order for permanent guardianship is scheduled for later this month.Patient was at [facility] and came with AMS and hypoxia? . Was treated for possible recurrent pneumonia. BUT ID recommended to stop abx as procalcitonin normal and mostly old infiltrates on cxr. Doing fine off of abx. wants patient to have left knee shot but patient refused but later had the shot. is somewhat demanding.Plan for placement though again and patient wants to go home. Had court order on 01/02/18- awaiting judgement. Stable currently Stable conditions: ACUTE ON CHRONIC HYPOXEMIC RESPIRATORY FAILURE Resolved: Respiratory status is baseline hx of COPD /and DEONDRE non compliant with supplemental 02 presented with hypoxia possible secondary to atelectasis /recently treated for HCAP received abx for first few days and ID was on board did ok after stopping abx Cxr ray shows possibly chronic infiltrate hypoxia has resolved as per nursing , pt desaturates to upper 80's while sleeping ( suggestive of DEONDRE ) to use oxygen while sleeping -pt seems to refuses to wear nasal canula on PRN Neb tx and INH stable currently CONFUSION /METABOLIC ENCEPHALOPATHY : resolved , awake and alert possible due to hypoxemia has dementia seems at baseline currently Will monitor for delirium CHRONIC A FIB : rate controlled with Diltiazem and Toprol. on anticoagulation with Eliquis stable LEFT KNEE PAIN secondary to severe OA- seen by Ortho and offered cortisone injection and Celebrex, pt initially declined them all But Status post a left knee steroid injection by orthopedics ORTho recommends: WBAT w/ assist and walker Nonsurgical candidate at this time PT/OT eval requested but non cooperative plan for placement CHRONIC DIASTOLIC HEART FAILURE : compensated will monitor HYPOTHYROIDISM : on levothyroxine SEVERE AMBULATORY DYSFUNCTION unable to transfer or change position without assistance Needs supportive care Most likely needs [facility] not safe to return home pt and her insists on going home office of aging involved scheduled to have a court hearing on 01/02/18 appoint guardianship and NH placement order-await the hearing Full Code DVT PROPHYLAXIS Apixaban DISPOSITION To be determined office of aging involved due to concern for safety issues and patient wants to go home and refusing [facility].. social service following for discharge planning court hearing on 01/02/18 appoint guardianship and NH placement order-await the hearing Vital Signs: Date Time Temp Pulse Resp B/P (MAP) Pulse Ox O2 Delivery O2 Flow Rate FiO2 01/04/18 15:26 36.4 103 16 105/64 (78) 91 Room Air 01/04/18 08:09 36.6 99 16 135/66 (89) 91 Room Air 01/03/18 23:50 94 Room Air 2.0 01/03/18 23:35 37.1 94 14 142/66 (91) 94 Room Air
[2018-01-04] MEDS: LATANOPROST 0.005% OP SOLN 2.5 ML BTL OPB SCH (20:50)
[2018-01-04 23:06] VITALS: BP 113/69; PULSE 81; TEMP 36.3; O2SAT 94
[2018-01-05 00:05] VITALS: O2SAT 94
[2018-01-05] MEDS: LEVOTHYROXINE 100 MCG TAB PO SCH (05:47)
[2018-01-05 07:38] VITALS: BP 140/71; PULSE 94; TEMP 36.4; O2SAT 93
[2018-01-05] MEDS: APIXABAN 2.5 MG TAB PO SCH ×2 (08:13→21:06)
[2018-01-05] MEDS: ASPIRIN 81 MG ECTAB PO SCH (08:14)
[2018-01-05] MEDS: CeleBREX 200 MG CAP PO SCH (08:15)
[2018-01-05] MEDS: POTASSIUM CHLORIDE 20 MEQ TABCR PO SCH (08:16)
[2018-01-05] MEDS: ATORVASTATIN 40 MG TAB PO SCH (08:16)
[2018-01-05] MEDS: DILTIAZEM HCL 120 MG EXT REL CAP PO SCH (08:16)
[2018-01-05] MEDS: OXYBUTYNIN CHLORIDE 5 MG TABCR PO SCH (08:16)
[2018-01-05] MEDS: METOPROLOL SUCC 50MG EXT REL TAB PO SCH (08:16)
[2018-01-05] MEDS: MICONAZOLE NITRATE POWDER 43 GM EXT SCH ×2 (08:17→21:06)
[2018-01-05 15:00] VITALS: BP 122/84; PULSE 95; TEMP 36.5; O2SAT 95
[2018-01-05 15:35] VITALS: O2SAT 95
--- NOTE | 2018-01-05 17:51 | Progress Note ---
Internal Med Progress Note Date of Service: Jan 05, 2018. Provider Documentation: SUBJECTIVE: resting in bed comfortably says eating ok denies any pain no nausea says moved bowels refused for exam again today but when called the he talked to her on phone and patient allowed for examination OBJECTIVE: Vital Signs-as noted below Exam: General-alert and awake . Not in distress ENT-normal hearing Neck-supple Lungs-cta b/l no wheezing or crackles Heart-s1 and s2 heard regular rate and rhythm,no Murmur Abdomen-soft bowel sounds present non tender no distension Extremities-lower extremity edema present no erythema seen Neuro-alert and awake moves extremities Lab data as noted below. ASSESSMENT & PLAN: Patient was recently admitted to [facility] 11/05 through 11/17 for pneumonia and atrial fibrillation. At that time it was highly advised for the patient to go to a nursing facility however and patient refused and patient was discharged home. Since that time, temporary court order was obtained to arrange for patient to be [facility] in a penitentiary. Follow-up court order for permanent guardianship is scheduled for later this month.Patient was at [facility] and came with AMS and hypoxia? . Was treated for possible recurrent pneumonia. BUT ID recommended to stop abx as procalcitonin normal and mostly old infiltrates on cxr. Doing fine off of abx. wants patient to have left knee shot but patient refused but later had the shot. is somewhat demanding.Plan for placement though again and patient wants to go home. Had court order on 01/02/18- awaiting judgement. Stable currently. Plan for [facility] hopefully by end of the week as per case management notes. Stable conditions: ACUTE ON CHRONIC HYPOXEMIC RESPIRATORY FAILURE Resolved: Respiratory status is baseline hx of COPD /and DEONDRE non compliant with supplemental 02 presented with hypoxia possible secondary to atelectasis /recently treated for HCAP received abx for first few days and ID was on board did ok after stopping abx Cxr ray shows possibly chronic infiltrate hypoxia has resolved as per nursing , pt desaturates to upper 80's while sleeping ( suggestive of DEONDRE ) to use oxygen while sleeping -pt seems to refuses to wear nasal canula on PRN Neb tx and INH stable currently CONFUSION /METABOLIC ENCEPHALOPATHY : resolved , awake and alert possible due to hypoxemia has dementia seems at baseline currently Will monitor for delirium CHRONIC A FIB : rate controlled with Diltiazem and Toprol. on anticoagulation with Eliquis stable LEFT KNEE PAIN secondary to severe OA- seen by Ortho and offered cortisone injection and Celebrex, pt initially declined them all But Status post a left knee steroid injection by orthopedics ORTho recommends: WBAT w/ assist and walker Nonsurgical candidate at this time PT/OT eval requested but non cooperative plan for placement CHRONIC DIASTOLIC HEART FAILURE : compensated will monitor HYPOTHYROIDISM : on levothyroxine SEVERE AMBULATORY DYSFUNCTION unable to transfer or change position without assistance Needs supportive care Most likely needs skilled nursing facility not safe to return home pt and her insists on going home office of aging involved scheduled to have a court hearing on 01/02/18 appoint guardianship and NH placement order-await the hearing Full Code DVT PROPHYLAXIS Apixaban DISPOSITION To be determined office of aging involved due to concern for safety issues and patient wants to go home and refusing penitentiary.. social service following for discharge planning court hearing on 01/02/18 appoint guardianship and NH placement order-await the hearing Vital Signs: Date Time Temp Pulse Resp B/P (MAP) Pulse Ox O2 Delivery O2 Flow Rate FiO2 01/05/18 15:00 36.5 95 18 122/84 (97) 95 Room Air 01/05/18 08:05 Room Air 01/05/18 07:38 36.4 94 20 140/71 (94) 93 Room Air 01/05/18 00:05 94 Room Air 2.0 01/04/18 23:06 36.3 81 22 113/69 (84) 94 Room Air 01/04/18 19:40 Room Air
[2018-01-05] MEDS: LATANOPROST 0.005% OP SOLN 2.5 ML BTL OPB SCH (21:06)
[2018-01-05 23:21] VITALS: BP 127/83; PULSE 85; TEMP 36.3; O2SAT 96
[2018-01-06] MEDS: LEVOTHYROXINE 100 MCG TAB PO SCH (06:11)
[2018-01-06 07:21] VITALS: BP 136/78; PULSE 75; TEMP 36.6; O2SAT 96
[2018-01-06] MEDS: MICONAZOLE NITRATE POWDER 43 GM EXT SCH ×2 (08:42→22:10)
[2018-01-06] MEDS: APIXABAN 2.5 MG TAB PO SCH ×2 (08:42→22:10)
[2018-01-06] MEDS: ASPIRIN 81 MG ECTAB PO SCH (08:42)
[2018-01-06] MEDS: ATORVASTATIN 40 MG TAB PO SCH (08:45)
[2018-01-06] MEDS: METOPROLOL SUCC 50MG EXT REL TAB PO SCH (08:45)
[2018-01-06] MEDS: OXYBUTYNIN CHLORIDE 5 MG TABCR PO SCH (08:45)
[2018-01-06] MEDS: POTASSIUM CHLORIDE 20 MEQ TABCR PO SCH (08:45)
[2018-01-06] MEDS: CeleBREX 200 MG CAP PO SCH (08:45)
[2018-01-06] MEDS: DILTIAZEM HCL 120 MG EXT REL CAP PO SCH (08:45)
--- NOTE | 2018-01-06 13:53 | Progress Note ---
Internal Med Progress Note Date of Service: Jan 06, 2018. Provider Documentation: SUBJECTIVE: The patient was seen and examined in medical floor Denies to have any symptoms Diffuse to be examined Refusing any Lab work or any other test OBJECTIVE: Vital Signs-as noted below Exam: General-no apparent distress at rest Eyes-closed ENT-normal Neck-supple Neuro-alert and awake Generally weak Lab data as noted below. ASSESSMENT & PLAN: History Carried on:: Patient was recently admitted to [facility] 11/05 through 11/17 for pneumonia and atrial fibrillation. At that time it was highly advised for the patient to go to a nursing facility however and patient refused and patient was discharged home. Since that time, temporary court order was obtained to arrange for patient to be placed in a jail. Follow-up court order for permanent guardianship is scheduled for later this month.Patient was at [facility] and came with AMS and hypoxia? . Was treated for possible recurrent pneumonia. BUT ID recommended to stop abx as procalcitonin normal and mostly old infiltrates on cxr. Doing fine off of abx. wants patient to have left knee shot but patient refused but later had the shot. is somewhat demanding.Plan for placement though again and patient wants to go home. Had court order on 01/02/18- awaiting judgement. Stable currently. Plan for [facility] hopefully by end of the week as per case management notes. Stable conditions: ACUTE ON CHRONIC HYPOXEMIC RESPIRATORY FAILURE Resolved: Respiratory status is baseline:hx of COPD /and DEONDRE :Non compliant with supplemental 02 Presented with hypoxia possible secondary to atelectasis /recently treated for HCAP Received abx for first few days and ID was on board On PRN Neb tx and INH Clinically a lot better and remains stable as per the note Denies any symptoms and no distress at rest Medically stable CONFUSION /METABOLIC ENCEPHALOPATHY : Resolved , awake and alert :possible due to hypoxemia Has dementia Seems at baseline currently CHRONIC A FIB : Rate controlled with Diltiazem and Toprol. On anticoagulation with Eliquis No acute issue LEFT KNEE PAIN Secondary to severe OA- Seen by Ortho and offered cortisone injection and Celebrex, pt initially declined them all But Status post a left knee steroid injection by orthopedics ORTho recommends: WBAT w/ assist and walker Nonsurgical candidate at this time PT/OT eval requested but non cooperative Plan for placement CHRONIC DIASTOLIC HEART FAILURE : compensated will monitor HYPOTHYROIDISM : Continue levothyroxine SEVERE AMBULATORY DYSFUNCTION unable to transfer or change position without assistance Needs supportive care Most likely needs skilled nursing facility not safe to return home pt and her insists on going home office of aging involved and Court order has been obtained Awaiting to be placed Full Code DVT PROPHYLAXIS Apixaban DISPOSITION Office of aging and Court decision have been made Awaiting placement Vital Signs: Date Time Temp Pulse Resp B/P (MAP) Pulse Ox O2 Delivery O2 Flow Rate FiO2 01/06/18 08:00 Room Air 01/06/18 07:21 36.6 75 18 136/78 (97) 96 Room Air 01/06/18 00:11 Room Air 01/05/18 23:21 36.3 85 16 127/83 (98) 96 Room Air 01/05/18 15:35 95 Room Air 01/05/18 15:00 36.5 95 18 122/84 (97) 95 Room Air
[2018-01-06 15:55] VITALS: BP 102/55; PULSE 89; TEMP 36.4; O2SAT 94
[2018-01-06 16:00] VITALS: O2SAT 94
[2018-01-06] MEDS: LEVALBUTEROL 0.63MG/3 ML NEB INH PRN (17:13)
[2018-01-06 17:14] VITALS: PULSE 77; O2SAT 94
[2018-01-06] MEDS: IPRATROPIUM BROMIDE NEB SOLN 0.02% 2.5 ML VIAL INH PRN (17:14)
[2018-01-06] MEDS: LATANOPROST 0.005% OP SOLN 2.5 ML BTL OPB SCH (22:10)
[2018-01-06 22:50] VITALS: BP 149/79; PULSE 72; TEMP 36.5; O2SAT 97
[2018-01-07] MEDS: LEVOTHYROXINE 100 MCG TAB PO SCH (05:46)
[2018-01-07 07:14] VITALS: BP 144/85; PULSE 84; TEMP 36.5; O2SAT 95
[2018-01-07] MEDS: ASPIRIN 81 MG ECTAB PO SCH (08:30)
[2018-01-07] MEDS: APIXABAN 2.5 MG TAB PO SCH ×2 (08:30→20:40)
[2018-01-07] MEDS: ATORVASTATIN 40 MG TAB PO SCH (08:31)
[2018-01-07] MEDS: POTASSIUM CHLORIDE 20 MEQ TABCR PO SCH (08:31)
[2018-01-07] MEDS: DILTIAZEM HCL 120 MG EXT REL CAP PO SCH (08:31)
[2018-01-07] MEDS: CeleBREX 200 MG CAP PO SCH (08:31)
[2018-01-07] MEDS: METOPROLOL SUCC 50MG EXT REL TAB PO SCH (08:31)
[2018-01-07] MEDS: OXYBUTYNIN CHLORIDE 5 MG TABCR PO SCH (08:31)
[2018-01-07] MEDS: MICONAZOLE NITRATE POWDER 43 GM EXT SCH ×2 (08:32→20:40)
[2018-01-07 15:25] VITALS: BP 137/82; PULSE 98; TEMP 36.5; O2SAT 96
--- NOTE | 2018-01-07 17:45 | Progress Note ---
Internal Med Progress Note Date of Service: Jan 07, 2018. Provider Documentation: SUBJECTIVE: The patient was seen and examined in medical floor Denies to have any symptoms Diffuse to be examined Refusing any Lab work or any other test No complaints OOB in a chair Discussed with the OBJECTIVE: Vital Signs-as noted below Exam: General-no apparent distress at rest Eyes-closed ENT-normal Neck-supple Neuro-alert and awake Generally weak Lab data as noted below. ASSESSMENT & PLAN: Meeting with the in presence of the Director of Social service, [facility] liaison nurse and social worker aide Told about the current court order and we will abide by the order Awaiting acceptance from a facility to discharge History Carried on:: Patient was recently admitted to [facility] 11/05 through 11/17 for pneumonia and atrial fibrillation. At that time it was highly advised for the patient to go to a nursing facility however and patient refused and patient was discharged home. Since that time, temporary court order was obtained to arrange for patient to be placed in a [facility]. Follow-up court order for permanent guardianship is scheduled for later this month.Patient was at [facility] and came with AMS and hypoxia? . Was treated for possible recurrent pneumonia. BUT ID recommended to stop abx as procalcitonin normal and mostly old infiltrates on cxr. Doing fine off of abx. wants patient to have left knee shot but patient refused but later had the shot. is somewhat demanding.Plan for placement though again and patient wants to go home. Had court order on 01/02/18- awaiting judgement. Stable currently. Plan for [facility] hopefully by end of the week as per case management notes. Stable conditions: ACUTE ON CHRONIC HYPOXEMIC RESPIRATORY FAILURE Resolved: Respiratory status is baseline:hx of COPD /and DEONDRE :Non compliant with supplemental 02 Presented with hypoxia possible secondary to atelectasis /recently treated for HCAP Received abx for first few days and ID was on board On PRN Neb tx and INH Clinically a lot better and remains stable as per the note Denies any symptoms and no distress at rest Medically stable CONFUSION /METABOLIC ENCEPHALOPATHY : Resolved , awake and alert :possible due to hypoxemia Has dementia Seems at baseline currently CHRONIC A FIB : Rate controlled with Diltiazem and Toprol. On anticoagulation with Eliquis No acute issue LEFT KNEE PAIN Secondary to severe OA- Seen by Ortho and offered cortisone injection and Celebrex, pt initially declined them all But Status post a left knee steroid injection by orthopedics ORTho recommends: WBAT w/ assist and walker Nonsurgical candidate at this time PT/OT eval requested but non cooperative Plan for placement CHRONIC DIASTOLIC HEART FAILURE : compensated will monitor HYPOTHYROIDISM : Continue levothyroxine SEVERE AMBULATORY DYSFUNCTION unable to transfer or change position without assistance Needs supportive care Most likely needs halfway facility not safe to return home pt and her insists on going home office of aging involved and Court order has been obtained Awaiting to be placed Full Code DVT PROPHYLAXIS Apixaban DISPOSITION Office of aging and Court decision have been made Awaiting placement Refusing any blood work Vital Signs: Date Time Temp Pulse Resp B/P (MAP) Pulse Ox O2 Delivery O2 Flow Rate FiO2 01/07/18 15:30 Room Air 01/07/18 15:25 36.5 98 18 137/82 (100) 96 Room Air 01/07/18 07:35 Room Air 01/07/18 07:14 36.5 84 16 144/85 (104) 95 Room Air 01/06/18 23:25 Room Air 01/06/18 22:50 36.5 72 18 149/79 (102) 97 Room Air
[2018-01-07] MEDS: LATANOPROST 0.005% OP SOLN 2.5 ML BTL OPB SCH (20:40)
[2018-01-07 23:05] VITALS: BP 119/50; PULSE 111; TEMP 36.4; O2SAT 95
[2018-01-08] MEDS: LEVOTHYROXINE 100 MCG TAB PO SCH (05:45)
[2018-01-08 07:01] VITALS: BP 113/74; PULSE 81; TEMP 36.5; O2SAT 90
[2018-01-08] MEDS: CeleBREX 200 MG CAP PO SCH (09:00)
[2018-01-08] MEDS: METOPROLOL SUCC 50MG EXT REL TAB PO SCH (09:00)
[2018-01-08] MEDS: APIXABAN 2.5 MG TAB PO SCH ×2 (09:00→21:11)
[2018-01-08] MEDS: POTASSIUM CHLORIDE 20 MEQ TABCR PO SCH (09:00)
[2018-01-08] MEDS: ATORVASTATIN 40 MG TAB PO SCH (09:00)
[2018-01-08] MEDS: ASPIRIN 81 MG ECTAB PO SCH (09:00)
[2018-01-08] MEDS: DILTIAZEM HCL 120 MG EXT REL CAP PO SCH (09:00)
[2018-01-08] MEDS: OXYBUTYNIN CHLORIDE 5 MG TABCR PO SCH (09:00)
[2018-01-08] MEDS: MICONAZOLE NITRATE POWDER 43 GM EXT SCH ×2 (09:01→21:11)
[2018-01-08 15:37] VITALS: BP 105/72; PULSE 104; TEMP 36.4; O2SAT 95
--- NOTE | 2018-01-08 16:46 | Progress Note ---
Internal Med Progress Note Date of Service: Jan 08, 2018. Provider Documentation: SUBJECTIVE: The patient was seen and examined in medical floor Denies to have any symptoms Diffuse to be examined Refusing any Lab work or any other test No complaints OOB in a chair Discussed with the 01/08 Agitated when I introduced myself Denies any symptoms but Refusing medications and examination OBJECTIVE: Vital Signs-as noted below Exam: None done ASSESSMENT & PLAN: Meeting with the in presence of the Director of Social service, Les liaison nurse and social work professor Told about the current court order and we will abide by the order Awaiting acceptance from a facility to discharge Very Noncompliant Awaiting placement History Carried on:: Patient was recently admitted to [facility] 11/05 through 11/17 for pneumonia and atrial fibrillation. At that time it was highly advised for the patient to go to a nursing facility however and patient refused and patient was discharged home. Since that time, temporary court order was obtained to arrange for patient to be placed in a snf. Follow-up court order for permanent guardianship is scheduled for later this month.Patient was at [facility] and came with AMS and hypoxia? . Was treated for possible recurrent pneumonia. BUT ID recommended to stop abx as procalcitonin normal and mostly old infiltrates on cxr. Doing fine off of abx. wants patient to have left knee shot but patient refused but later had the shot. is somewhat demanding.Plan for placement though again and patient wants to go home. Had court order on 01/02/18- awaiting judgement. Stable currently. Plan for [facility] hopefully by end of the week as per case management notes. Stable conditions: ACUTE ON CHRONIC HYPOXEMIC RESPIRATORY FAILURE Resolved: Respiratory status is baseline:hx of COPD /and DEONDRE :Non compliant with supplemental 02 Presented with hypoxia possible secondary to atelectasis /recently treated for HCAP Received abx for first few days and ID was on board On PRN Neb tx and INH Clinically a lot better and remains stable as per the note Denies any symptoms and no distress at rest Medically stable CONFUSION /METABOLIC ENCEPHALOPATHY : Resolved , awake and alert :possible due to hypoxemia Has dementia Seems at baseline currently CHRONIC A FIB : Rate controlled with Diltiazem and Toprol. On anticoagulation with Eliquis No acute issue LEFT KNEE PAIN Secondary to severe OA- Seen by Ortho and offered cortisone injection and Celebrex, pt initially declined them all But Status post a left knee steroid injection by orthopedics ORTho recommends: WBAT w/ assist and walker Nonsurgical candidate at this time PT/OT eval requested but non cooperative Plan for placement CHRONIC DIASTOLIC HEART FAILURE : compensated will monitor HYPOTHYROIDISM : Continue levothyroxine SEVERE AMBULATORY DYSFUNCTION unable to transfer or change position without assistance Needs supportive care Most likely needs long term acute care registered nurse facility not safe to return home pt and her insists on going home office of aging involved and Court order has been obtained Awaiting to be placed Full Code DVT PROPHYLAXIS Apixaban DISPOSITION Office of aging and Court decision have been made Awaiting placement Refusing any blood work Vital Signs: Date Time Temp Pulse Resp B/P (MAP) Pulse Ox O2 Delivery O2 Flow Rate FiO2 01/08/18 15:37 36.4 104 18 105/72 (83) 95 Room Air 01/08/18 12:22 Room Air 01/08/18 07:01 36.5 81 19 113/74 (87) 90 Room Air 01/07/18 23:16 Room Air 01/07/18 23:05 36.4 111 18 119/50 (73) 95 Room Air
[2018-01-08] MEDS: LATANOPROST 0.005% OP SOLN 2.5 ML BTL OPB SCH (21:11)
[2018-01-08 22:53] VITALS: BP 129/81; PULSE 98; TEMP 36.5; O2SAT 95
[2018-01-09] MEDS: LEVOTHYROXINE 100 MCG TAB PO SCH (05:35)
[2018-01-09 07:20] VITALS: BP 126/66; PULSE 84; TEMP 36.4; O2SAT 93
[2018-01-09] MEDS: POTASSIUM CHLORIDE 20 MEQ TABCR PO SCH (09:00)
[2018-01-09] MEDS: OXYBUTYNIN CHLORIDE 5 MG TABCR PO SCH (09:00)
[2018-01-09] MEDS: ATORVASTATIN 40 MG TAB PO SCH (09:00)
[2018-01-09] MEDS: ASPIRIN 81 MG ECTAB PO SCH (09:00)
[2018-01-09] MEDS: METOPROLOL SUCC 50MG EXT REL TAB PO SCH (09:00)
[2018-01-09] MEDS: APIXABAN 2.5 MG TAB PO SCH ×2 (09:00→20:52)
[2018-01-09] MEDS: MICONAZOLE NITRATE POWDER 43 GM EXT SCH ×2 (09:00→20:52)
[2018-01-09] MEDS: CeleBREX 200 MG CAP PO SCH (09:00)
[2018-01-09] MEDS: DILTIAZEM HCL 120 MG EXT REL CAP PO SCH (09:00)
[2018-01-09 15:15] VITALS: BP 154/96; PULSE 108; TEMP 36.3; O2SAT 93
[2018-01-09 15:30] VITALS: O2SAT 93
--- NOTE | 2018-01-09 16:03 | Progress Note ---
Internal Med Progress Note Date of Service: Jan 09, 2018. Provider Documentation: SUBJECTIVE: The patient was seen and examined in medical floor Denies to have any symptoms Diffuse to be examined Refusing any Lab work or any other test No complaints OOB in a chair Discussed with the 01/08 Agitated when I introduced myself Denies any symptoms but Refusing medications and examination 01/09 At around 3:30 PM today I was informed that she is having short of breath and she did not make out any urine since this morning Bladder scan showed more than 300 mL of fluid She was refusing to be seen and/or examined by me and/or any healthcare provider I discussed that with the and herself in the patient's room Explained possible medical condition that can happen with these kind of symptoms The convinced her to have the relevant lab test and imaging studies I examined the patient in front of the OBJECTIVE: Vital Signs-as noted below Exam: Moderate distress at rest Tachycardic, tachypneic with normal blood pressure and saturation Chest-decreased breath sounds at the bases Heart-S1-S2, no definite murmur Abdomen-distended, soft, nontender, no organomegaly, bowel sounds present Extremities-has 1+ bilateral edema on either side 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, 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 Generally weak but can move all the limbs ASSESSMENT & PLAN: Meeting with the in presence of the Director of Social service, [facility] liaison nurse and renal social worker Told about the current court order and we will abide by the order Awaiting acceptance from a facility to discharge Very Noncompliant Awaiting placement Acute shortness of breath without any chest pain, palpitation, nausea, vomiting or any fever chills 01/09/18 Has had more than 300 mL's of urine in the bladder and has not been passing any urine since morning Possibilities could be fluid overload, acute ACS, thrombosis and/or embolism, pneumonia We will get relevant blood test, EKG and chest x-ray Will give treatment as required by the test results Explained the current medical condition in detail with the History Carried on:: Patient was recently admitted to [facility] 11/05 through 11/17 for pneumonia and atrial fibrillation. At that time it was highly advised for the patient to go to a nursing facility however and patient refused and patient was discharged home. Since that time, temporary court order was obtained to arrange for patient to be placed in a longterm. Follow-up court order for permanent guardianship is scheduled for later this month.Patient was at [facility] and came with AMS and hypoxia? . Was treated for possible recurrent pneumonia. BUT ID recommended to stop abx as procalcitonin normal and mostly old infiltrates on cxr. Doing fine off of abx. wants patient to have left knee shot but patient refused but later had the shot. is somewhat demanding.Plan for placement though again and patient wants to go home. Had court order on 01/02/18- awaiting judgement. Stable currently. Plan for [facility] hopefully by end of the week as per case management notes. Stable conditions: ACUTE ON CHRONIC HYPOXEMIC RESPIRATORY FAILURE Resolved: Respiratory status is baseline:hx of COPD /and DEONDRE :Non compliant with supplemental 02 Presented with hypoxia possible secondary to atelectasis /recently treated for HCAP Received abx for first few days and ID was on board On PRN Neb tx and INH Clinically a lot better and remains stable as per the note Denies any symptoms and no distress at rest Medically stable CONFUSION /METABOLIC ENCEPHALOPATHY : Resolved , awake and alert :possible due to hypoxemia Has dementia Seems at baseline currently CHRONIC A FIB : Rate controlled with Diltiazem and Toprol. 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 facility not safe to return home pt and her insists on going home office of aging involved and Court order has been obtained Awaiting to be placed Full Code DVT PROPHYLAXIS Apixaban DISPOSITION Office of aging and Court decision have been made Awaiting placement Refusing any blood work and or exam:: Let me examine her for the first time today Vital Signs: Date Time Temp Pulse Resp B/P (MAP) Pulse Ox O2 Delivery O2 Flow Rate FiO2 01/09/18 15:15 36.3 108 27 154/96 (115) 93 Room Air 01/09/18 09:00 Room Air 01/09/18 07:20 36.4 84 18 126/66 (86) 93 Room Air 01/09/18 00:00 Room Air 01/08/18 22:53 36.5 98 18 129/81 (97) 95 Room Air Lab Results: Results Past 24 Hours Test 01/09/18 15:24 01/09/18 15:26 Range/Units
[2018-01-09 16:14] LABS: BASO % 0.2 %; BASO ABS # 0.02 K/uL (0-0.2); EOS % 1.9 %; EOS ABS # 0.17 K/uL (0-0.5); HEMATOCRIT 43.6 % (37-47); HEMOGLOBIN 14.2 g/dL (12.0-16.0); IG# 0.02 K/uL (0.00-0.02); LYMPH % 14.8 %; LYMPH ABS # 1.32 K/uL (1.2-3.4); MEAN CELL VOLUME 95.8 fL (80-100); MEAN CORPUSCULAR HEMOGLOBIN 31.2 pg (25-34); MEAN CORPUSCULAR HGB CONC 32.6 g/dl (32-36); MEAN PLATELET VOLUME 8.8 fL (7.4-10.4); MONO % 7.6 %; MONO ABS # 0.68 K/uL (0.11-0.59); NEUT % 75.3 %; NEUT ABS # 6.72 K/uL (1.4-6.5); PLATELET COUNT 241 K/uL (130-400); RED CELL DISTRIBUTION WIDTH CV 15.4 % (11.5-14.5); RED CELL DISTRIBUTION WIDTH SD 54.3 fL (36.4-46.3); WHITE BLOOD COUNT 8.93 K/uL (4.8-10.8)
[2018-01-09 16:30] LABS: PTT PATIENT 27.2 SECONDS (21.0-31.0)
[2018-01-09 16:50] LABS: ALKALINE PHOSPHATASE 91 U/L (45-117); ALT/SGPT 24 U/L (12-78); AST/SGOT 15 U/L (15-37); BLOOD UREA NITROGEN 12 mg/dl (7-18); CALCIUM 9.1 mg/dl (8.5-10.1); CARBON DIOXIDE 30 mmol/L (21-32); CREATININE 0.85 mg/dl (0.60-1.20); GLUCOSE 110 mg/dl (70-99); PHOSPHORUS 3.2 mg/dl (2.5-4.9); POTASSIUM 3.8 mmol/L (3.5-5.1); SODIUM 138 mmol/L (136-145); TOTAL PROTEIN 6.5 gm/dl (6.4-8.2)
--- NOTE | 2018-01-09 17:14 | DIAGNOSTIC IMAGING REPORT ---
ULTRASOUND VENOUS DOPPLER LWR EXT BILA CLINICAL HISTORY: r/o DVT COMPARISON STUDY: November 26, 2016 FINDINGS: Real-time and color flow Doppler imaging were performed. Flow was seen within the femoral, and popliteal veins with no intraluminal thrombus demonstrated. The saphenous vein is patent. The calf veins were nonvisualized IMPRESSION: 1. Technically limited study with nonvisualization the calf veins 2. No evidence of DVT from the common femoral veins to the popliteal veins bilaterally Electronically signed by: Darius Correa M.D. 01/09/2018 5:13 PM Dictated Date/Time: 01/09/2018 5:12 PM
--- NOTE | 2018-01-09 19:20 | DIAGNOSTIC IMAGING REPORT ---
CHEST ONE VIEW PORTABLE CLINICAL HISTORY: Shortness of breath COMPARISON STUDY: 12/15/2017 FINDINGS: The heart is enlarged. There is a left subclavian dual-chamber central venous pacemaker present. There is mild pulmonary vascular congestion. There are left basal airspace opacities, atelectatic versus infectious/inflammatory.[ IMPRESSION: 1. Cardiomegaly and mild central pulmonary vascular congestion 2. Left basilar airspace opacities, atelectatic versus infectious/inflammatory Electronically signed by: Darius Correa M.D. 01/09/2018 7:19 PM Dictated Date/Time: 01/09/2018 7:18 PM
[2018-01-09] MEDS: LATANOPROST 0.005% OP SOLN 2.5 ML BTL OPB SCH (20:52)
[2018-01-09] MEDS ORDERED: FUROSEMIDE 10 MG/ML 10 ML VIAL IM STA (21:39)
[2018-01-09] MEDS ORDERED: LEVALBUTEROL/IPRATROPIUM NEB INH STA (21:39)
[2018-01-09] MEDS ORDERED: OLANZAPINE 10 MG/2.1 ML SDV IM PRN (21:45)
[2018-01-09] MEDS ORDERED: METOPROLOL SUCC 50MG EXT REL TAB PO ONE (21:47)
[2018-01-09] MEDS ORDERED: IPRATROPIUM BROMIDE NEB SOLN 0.02% 2.5 ML VIAL INH STA (21:50)
[2018-01-09] MEDS ORDERED: LEVALBUTEROL 1.25MG/0.5ML NEB INH STA (21:50)
[2018-01-09] MEDS ORDERED: FUROSEMIDE 40 MG TAB PO ONE (22:00)
[2018-01-09 22:08] VITALS: PULSE 77; O2SAT 94
[2018-01-09 22:50] VITALS: BP 129/83; PULSE 103; TEMP 36.6; O2SAT 96
[2018-01-10] MEDS: LEVOTHYROXINE 100 MCG TAB PO SCH (05:38)
[2018-01-10 07:53] VITALS: BP 115/74; PULSE 80; TEMP 36.7; O2SAT 94
[2018-01-10] MEDS: ATORVASTATIN 40 MG TAB PO SCH ×2 (09:00→09:49)
[2018-01-10] MEDS: POTASSIUM CHLORIDE 20 MEQ TABCR PO SCH ×2 (09:00→09:50)
[2018-01-10] MEDS: METOPROLOL SUCC 50MG EXT REL TAB PO SCH ×2 (09:00→09:49)
[2018-01-10] MEDS: DILTIAZEM HCL 120 MG EXT REL CAP PO SCH ×2 (09:00→09:48)
[2018-01-10] MEDS: APIXABAN 2.5 MG TAB PO SCH ×2 (09:14→22:24)
[2018-01-10] MEDS: ASPIRIN 81 MG ECTAB PO SCH (09:14)
[2018-01-10] MEDS: CeleBREX 200 MG CAP PO SCH (09:15)
[2018-01-10] MEDS: OXYBUTYNIN CHLORIDE 5 MG TABCR PO SCH (09:15)
[2018-01-10] MEDS: MICONAZOLE NITRATE POWDER 43 GM EXT SCH ×2 (09:50→22:24)
[2018-01-10 15:24] VITALS: BP 90/61; PULSE 79; TEMP 36.6; O2SAT 95
--- NOTE | 2018-01-10 15:32 | Progress Note ---
Internal Med Progress Note Date of Service: Jan 10, 2018. Provider Documentation: SUBJECTIVE: The patient was seen and examined in medical floor Denies to have any symptoms Diffuse to be examined Refusing any Lab work or any other test No complaints OOB in a chair Discussed with the 01/08 Agitated when I introduced myself Denies any symptoms but Refusing medications and examination 01/09 At around 3:30 PM today I was informed that she is having short of breath and she did not make out any urine since this morning Bladder scan showed more than 300 mL of fluid She was refusing to be seen and/or examined by me and/or any healthcare provider I discussed that with the and herself in the patient's room Explained possible medical condition that can happen with these kind of symptoms The convinced her to have the relevant lab test and imaging studies I examined the patient in front of the 01/10: Has had a long discussion with the today Discussed about her current medical status of COPD/Sleep Apnea,AF with Controlled Rate and CHF,Dementia ,Symptomatic OA..... 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 Generally weak but can move all the limbs ASSESSMENT & PLAN: Meeting with the in presence of the Director of Social service, [place] liaison nurse and medical social worker 01/08/18 Told about the current court order and we will abide by the order Awaiting acceptance from a facility to discharge Very Noncompliant Awaiting placement is trying to take back the authority from the Court/court appointee so that he can take her home with PT Acute shortness of breath without any chest pain, palpitation, nausea, vomiting or any fever chills 01/09/18 Has had more than 300 mL's of urine in the bladder and has not been passing any urine since morning Possibilities could be fluid overload, acute ACS, thrombosis and/or embolism, pneumonia We will get relevant blood test, EKG and chest x-ray Will give treatment as required by the test results Explained the current medical condition in detail with the Relevant labs and imaging studies were unremarkable History Carried on:: Patient was recently admitted to [facility] 11/05 through 11/17 for pneumonia and atrial fibrillation. At that time it was highly advised for the patient to go to a nursing facility however and patient refused and patient was discharged home. Since that time, temporary court order was obtained to arrange for patient to be placed in a long term. Follow-up court order for permanent guardianship is scheduled for later this month.Patient was at [facility] and came with AMS and hypoxia? . Was treated for possible recurrent pneumonia. BUT ID recommended to stop abx as procalcitonin normal and mostly old infiltrates on cxr. Doing fine off of abx. wants patient to have left knee shot but patient refused but later had the shot. is somewhat demanding.Plan for placement though again and patient wants to go home. Had court order on 01/02/18- awaiting judgement. Stable currently. Plan for [facility] hopefully by end of the week as per case management notes. Stable conditions: ACUTE ON CHRONIC HYPOXEMIC RESPIRATORY FAILURE Resolved: Respiratory status is baseline:hx of COPD /and DEONDRE :Non compliant with supplemental 02 Presented with hypoxia possible secondary to atelectasis /recently treated for HCAP Received abx for first few days and ID was on board On PRN Neb tx and INH Clinically a lot better and remains stable as per the note Denies any symptoms and no distress at rest Medically stable CONFUSION /METABOLIC ENCEPHALOPATHY : Resolved , awake and alert :possible due to hypoxemia Has dementia Seems at baseline currently CHRONIC A FIB : Rate controlled with Diltiazem and Toprol. 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 facility not safe to return home pt and her insists on going home office of aging involved and Court order has been obtained Awaiting to be placed Full Code DVT PROPHYLAXIS Apixaban DISPOSITION Office of aging and Court decision have been made Awaiting placement Refusing any blood work and or exam:: Let me examine her for the first time today 01/09/18 Medically stable Vital Signs: Date Time Temp Pulse Resp B/P (MAP) Pulse Ox O2 Delivery O2 Flow Rate FiO2 01/10/18 07:53 36.7 80 19 115/74 (88) 94 Room Air 01/10/18 07:48 Room Air 01/09/18 23:25 Room Air 01/09/18 22:50 36.6 103 16 129/83 (98) 96 Room Air 01/09/18 22:08 77 16 94 Room Air 01/09/18 15:30 93 Room Air Lab Results: Results Past 24 Hours Test 01/09/18 15:42 01/09/18 15:45 01/10/18 04:00 Range/Units Prothrombin Time 10.1 9.0-12.0 SECONDS Prothromb Time International Ratio 1.0 0.9-1.1 Activated Partial Thromboplast Time 27.2 21.0-31.0 SECONDS Partial Thromboplastin Ratio 1.0 D-Dimer 960 0-500 ug/L FEU White Blood Count 8.93 4.8-10.8 K/uL Red Blood Count 4.55 4.2-5.4 M/uL Hemoglobin 14.2 12.0-16.0 g/dL Hematocrit 43.6 37-47 % Mean Corpuscular Volume 95.8 80-100 fL Mean Corpuscular Hemoglobin 31.2 25-34 pg Mean Corpuscular Hemoglobin Concent 32.6 32-36 g/dl Platelet Count 241 130-400 K/uL Mean Platelet Volume 8.8 7.4-10.4 fL Neutrophils (%) (Auto) 75.3 % Lymphocytes (%) (Auto) 14.8 % Monocytes (%) (Auto) 7.6 % Eosinophils (%) (Auto) 1.9 % Basophils (%) (Auto) 0.2 % Neutrophils # (Auto) 6.72 1.4-6.5 K/uL Lymphocytes # (Auto) 1.32 1.2-3.4 K/uL Monocytes # (Auto) 0.68 0.11-0.59 K/uL Eosinophils # (Auto) 0.17 0-0.5 K/uL Basophils # (Auto) 0.02 0-0.2 K/uL RDW Standard Deviation 54.3 36.4-46.3 fL RDW Coefficient of Variation 15.4 11.5-14.5 % Immature Granulocyte % (Auto) 0.2 % Immature Granulocyte # (Auto) 0.02 0.00-0.02 K/uL Sodium Level 138 136-145 mmol/L Potassium Level 3.8 3.5-5.1 mmol/L Chloride Level 103 98-107 mmol/L Carbon Dioxide Level 30 21-32 mmol/L Anion Gap 5.0 3-11 mmol/L Blood Urea Nitrogen 12 7-18 mg/dl Creatinine 0.85 0.60-1.20 mg/dl Est Creatinine Clear Calc Drug Dose 55.8 ml/min Estimated GFR () 72.4 Estimated GFR (Non- 62.5 BUN/Creatinine Ratio 13.9 10-20 Random Glucose 110 70-99 mg/dl Calcium Level 9.1 8.5-10.1 mg/dl Phosphorus Level 3.2 2.5-4.9 mg/dl Magnesium Level 2.0 1.8-2.4 mg/dl Total Bilirubin 0.6 0.2-1 mg/dl Direct Bilirubin 0.1 0-0.2 mg/dl Aspartate Amino Transf (AST/SGOT) 15 15-37 U/L Alanine Aminotransferase (ALT/SGPT) 24 12-78 U/L Alkaline Phosphatase 91 45-117 U/L Troponin I < 0.015 0-0.045 ng/ml Total Protein 6.5 6.4-8.2 gm/dl Albumin 3.0 3.4-5.0 gm/dl Vitamin B12 Level 673 211-911 pg/mL Folate 17.51 >5.38 ng/mL Thyroid Stimulating Hormone (TSH) 1.110 0.300-4.500 uIu/ml Urine Color YELLOW Urine Appearance CLEAR CLEAR Urine pH 6.0 4.5-7.5 Urine Specific [place] 1.009 1.000-1.030 Urine Protein NEG NEG Urine Glucose (UA) NEG NEG Urine Ketones NEG NEG Urine Occult Blood NEG NEG Urine Nitrite NEG NEG Urine Bilirubin NEG NEG Urine Urobilinogen NEG NEG Urine Leukocyte Esterase NEG NEG
[2018-01-10] MEDS: LATANOPROST 0.005% OP SOLN 2.5 ML BTL OPB SCH (22:24)
[2018-01-10 22:50] VITALS: BP 111/56; PULSE 68; TEMP 37; O2SAT 95
[2018-01-11] MEDS: LEVOTHYROXINE 100 MCG TAB PO SCH (05:48)
[2018-01-11 07:00] VITALS: BP 108/73; PULSE 74; TEMP 36.6; O2SAT 92
[2018-01-11] MEDS: POTASSIUM CHLORIDE 20 MEQ TABCR PO SCH (09:00)
[2018-01-11] MEDS: OXYBUTYNIN CHLORIDE 5 MG TABCR PO SCH (09:00)
[2018-01-11] MEDS: MICONAZOLE NITRATE POWDER 43 GM EXT SCH ×2 (09:53→21:39)
[2018-01-11] MEDS: APIXABAN 2.5 MG TAB PO SCH ×2 (09:54→21:40)
[2018-01-11] MEDS: CeleBREX 200 MG CAP PO SCH (09:55)
[2018-01-11] MEDS: ASPIRIN 81 MG ECTAB PO SCH (09:55)
[2018-01-11] MEDS: DILTIAZEM HCL 120 MG EXT REL CAP PO SCH (11:17)
[2018-01-11] MEDS: ATORVASTATIN 40 MG TAB PO SCH (11:17)
[2018-01-11] MEDS: METOPROLOL SUCC 50MG EXT REL TAB PO SCH (11:17)
--- NOTE | 2018-01-11 14:50 | Progress Note ---
Internal Med Progress Note Date of Service: Jan 11, 2018. Provider Documentation: SUBJECTIVE: The patient was seen and examined in medical floor Denies to have any symptoms Diffuse to be examined Refusing any Lab work or any other test No complaints OOB in a chair Discussed with the 01/08 Agitated when I introduced myself Denies any symptoms but Refusing medications and examination 01/09 At around 3:30 PM today I was informed that she is having short of breath and she did not make out any urine since this morning Bladder scan showed more than 300 mL of fluid She was refusing to be seen and/or examined by me and/or any healthcare provider I discussed that with the and herself in the patient's room Explained possible medical condition that can happen with these kind of symptoms The convinced her to have the relevant lab test and imaging studies I examined the patient in front of the 01/10: Has had a long discussion with the today Discussed about her current medical status of COPD/Sleep Apnea,AF with Controlled Rate and CHF,Dementia ,Symptomatic OA..... 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, 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 Generally weak but can move all the limbs ASSESSMENT & PLAN: Meeting with the in presence of the Director of Social service, [facility] liaison nurse and social services manager 01/08/18 Told about the current court order and we will abide by the order Awaiting acceptance from a facility to discharge Very Noncompliant Awaiting placement is trying to take back the authority from the Court/court appointee so that he can take her home with PT Acute shortness of breath without any chest pain, palpitation, nausea, vomiting or any fever chills 01/09/18 Has had more than 300 mL's of urine in the bladder and has not been passing any urine since morning Possibilities could be fluid overload, acute ACS, thrombosis and/or embolism, pneumonia We will get relevant blood test, EKG and chest x-ray Will give treatment as required by the test results Explained the current medical condition in detail with the Relevant labs and imaging studies were unremarkable History Carried on:: Patient was recently admitted to [facility] 11/05 through 11/17 for pneumonia and atrial fibrillation. At that time it was highly advised for the patient to go to a nursing facility however and patient refused and patient was discharged home. Since that time, temporary court order was obtained to arrange for patient to be placed in a group home. Follow-up court order for permanent guardianship is scheduled for later this month.Patient was at [facility] and came with AMS and hypoxia? . Was treated for possible recurrent pneumonia. BUT ID recommended to stop abx as procalcitonin normal and mostly old infiltrates on cxr. Doing fine off of abx. wants patient to have left knee shot but patient refused but later had the shot. is somewhat demanding.Plan for placement though again and patient wants to go home. Had court order on 01/02/18- awaiting judgement. Stable currently. Plan for [facility] hopefully by end of the week as per case management notes. Stable conditions: ACUTE ON CHRONIC HYPOXEMIC RESPIRATORY FAILURE Resolved: Respiratory status is baseline:hx of COPD /and DEONDRE :Non compliant with supplemental 02 Presented with hypoxia possible secondary to atelectasis /recently treated for HCAP Received abx for first few days and ID was on board On PRN Neb tx and INH Clinically a lot better and remains stable as per the note Denies any symptoms and no distress at rest Medically stable CONFUSION /METABOLIC ENCEPHALOPATHY : Resolved , awake and alert :possible due to hypoxemia Has dementia Seems at baseline currently CHRONIC A FIB : Rate controlled with Diltiazem and Toprol. On anticoagulation with Eliquis No acute issue LEFT KNEE PAIN Secondary to severe OA- Seen by Ortho and offered cortisone injection and Celebrex, pt initially declined them all But Status post a left knee steroid injection by orthopedics ORTho recommends: WBAT w/ assist and walker Nonsurgical candidate at this time PT/OT eval requested but non cooperative Plan for placement CHRONIC DIASTOLIC HEART FAILURE : compensated will monitor HYPOTHYROIDISM : Continue levothyroxine SEVERE AMBULATORY DYSFUNCTION unable to transfer or change position without assistance Needs supportive care Most likely needs group home facility not safe to return home pt and her insists on going home office of aging involved and Court order has been obtained Awaiting to be placed Full Code DVT PROPHYLAXIS Apixaban DISPOSITION Office of aging and Court decision have been made Awaiting placement Refusing any blood work and or exam:: Let me examine her for the first time today 01/09/18 Medically stable Vital Signs: Date Time Temp Pulse Resp B/P (MAP) Pulse Ox O2 Delivery O2 Flow Rate FiO2 01/11/18 08:04 Room Air 01/11/18 07:00 36.6 74 15 108/73 (85) 92 Room Air 01/10/18 23:30 Room Air 01/10/18 22:50 37.0 68 16 111/56 (74) 95 Room Air 01/10/18 16:00 Room Air 01/10/18 15:24 36.6 79 18 90/61 (71) 95 Room Air
[2018-01-11 15:29] VITALS: BP 100/68; PULSE 77; TEMP 36.7; O2SAT 96
[2018-01-11] MEDS: LATANOPROST 0.005% OP SOLN 2.5 ML BTL OPB SCH (21:40)
[2018-01-11 22:40] VITALS: BP 123/78; PULSE 79; TEMP 36.6; O2SAT 96
[2018-01-11 22:51] LABS: CALCIUM 9.1 mg/dl (8.5-10.1); CREATININE 1.12 mg/dl (0.60-1.20); POTASSIUM 4.5 mmol/L (3.5-5.1)
[2018-01-12] MEDS ORDERED: SODIUM CHLORIDE 0.9% 1000ML 1,000 ML IV ONE (04:30)
[2018-01-12] MEDS: LEVOTHYROXINE 100 MCG TAB PO SCH (05:44)
[2018-01-12 07:01] VITALS: BP 128/77; PULSE 70; TEMP 36.5; O2SAT 94
[2018-01-12] MEDS ORDERED: LEVALBUTEROL/IPRATROPIUM NEB INH STA (07:30)
[2018-01-12] MEDS ORDERED: IPRATROPIUM BROMIDE NEB SOLN 0.02% 2.5 ML VIAL INH STA (07:36)
[2018-01-12] MEDS ORDERED: LEVALBUTEROL 1.25MG/0.5ML NEB INH STA (07:37)
--- NOTE | 2018-01-12 08:01 | DIAGNOSTIC IMAGING REPORT ---
CHEST ONE VIEW PORTABLE HISTORY: 87 years-old Female sob acute shortness of breath COMPARISON: Chest radiograph 01/09/2018 TECHNIQUE: Portable AP view of the chest FINDINGS: Cardiac silhouette is enlarged, unchanged. Atherosclerosis of the aorta. Left subclavian pacer is unchanged. Mild pulmonary vascular congestion without overt pulmonary edema. Right lung is clear. No pneumothorax. Left basilar opacity is again noted with blunting of the left costophrenic angle. No large pleural effusion. Degenerative changes about the shoulders and spine. IMPRESSION: 1. Cardiomegaly with mild pulmonary vascular congestion. 2. Persistent left basilar opacities suggesting atelectasis/scarring or pneumonitis. The above report was generated using voice recognition software. It may contain grammatical, syntax or spelling errors. Electronically signed by: Evert Tellez M.D. 01/12/2018 7:59 AM Dictated Date/Time: 01/12/2018 7:51 AM
[2018-01-12] MEDS: ATORVASTATIN 40 MG TAB PO SCH (09:19)
[2018-01-12] MEDS: DILTIAZEM HCL 120 MG EXT REL CAP PO SCH (09:20)
[2018-01-12] MEDS: METOPROLOL SUCC 50MG EXT REL TAB PO SCH (09:20)
[2018-01-12] MEDS: APIXABAN 2.5 MG TAB PO SCH ×2 (09:20→21:01)
[2018-01-12] MEDS: ASPIRIN 81 MG ECTAB PO SCH (09:21)
[2018-01-12] MEDS: OXYBUTYNIN CHLORIDE 5 MG TABCR PO SCH (09:21)
[2018-01-12] MEDS: CeleBREX 200 MG CAP PO SCH (09:21)
[2018-01-12] MEDS: POTASSIUM CHLORIDE 20 MEQ TABCR PO SCH (09:21)
[2018-01-12] MEDS: MICONAZOLE NITRATE POWDER 43 GM EXT SCH ×2 (09:22→21:00)
[2018-01-12 09:30] VITALS: PULSE 76; O2SAT 93
--- NOTE | 2018-01-12 11:45 | Progress Note ---
Medicine Progress Note Date & Time of Visit: Jan 12, 2018 at 11:45. Subjective Seen with RADIO TIME SALESPERSONCristobal Wilson at the bedside throughout the whole encounter As for permission to examine and evaluate her, and the patient agreed She is sitting up in bedside chair, comfortable, not in distress Was complaining of some dyspnea this morning while laying flat, but this is now resolved Denies chest pain, dizziness, palpitations, abdominal pain Denies other symptoms Objective Last 8 Hrs Date Time Temp Pulse Resp B/P (MAP) Pulse Ox O2 Delivery O2 Flow Rate FiO2 01/12/18 09:30 76 16 93 Room Air 01/12/18 08:09 Room Air 01/12/18 07:01 36.5 70 16 128/77 (94) 94 Room Air Physical Exam: General-oriented 3, speaking in sentences, no accessory muscle use Eyes- anicteric Neck- no JVD Lungs-mild rales left lower base, no wheezing, clear in the right, good air entry bilaterally Heart-irregularly irregular rhythm; no murmur, normal rate Abdomen- normal bowel sounds, soft, nondistended, nontender Extremities-no lower leg edema, no calf tenderness; peripheral pulses intact Neuro- alert, oriented x 2; no gross focal neurologic deficits noted Skin- warm & dry Laboratory Results: Last 24 Hours Test 01/11/18 22:23 Sodium Level 135 mmol/L Potassium Level 4.5 mmol/L Chloride Level 98 mmol/L Carbon Dioxide Level 32 mmol/L Anion Gap 5.0 mmol/L Blood Urea Nitrogen 17 mg/dl Creatinine 1.12 mg/dl Est Creatinine Clear Calc Drug Dose 42.4 ml/min Estimated GFR () 51.9 Estimated GFR (Non- 44.8 BUN/Creatinine Ratio 14.8 Random Glucose 124 mg/dl Calcium Level 9.1 mg/dl Magnesium Level 2.0 mg/dl Assessment & Plan ACUTE ON CHRONIC HYPOXEMIC RESPIRATORY FAILURE [place] to be secondary to left lower lobe pneumonia, has completed antibiotic therapy and is being observed off antibiotics Has been doing well on room air with a past few days Received Lasix 40 mg p.o. 5 days ago and has been mostly negative balance since that time Repeat chest x-ray January 12, 2018: 1. Cardiomegaly with mild pulmonary vascular congestion. 2. Persistent left basilar opacities suggesting atelectasis/scarring or pneumonitis. This morning the patient is not in respiratory distress, speaking sentences with no accessory muscle use, reports that he still has resolved Continue to monitor CONFUSION /METABOLIC ENCEPHALOPATHY : Resolved Has dementia Appears to be at baseline CHRONIC A FIB : Rate controlled with Diltiazem and Toprol. Chronic Eliquis LEFT KNEE PAIN Status post injection CHRONIC DIASTOLIC HEART FAILURE : Euvolemic Usually on Lasix 20 mg p.o. daily, but now has been receiving intermittent p.o. every 6 as needed Continue to monitor HYPOTHYROIDISM : Continue levothyroxine SEVERE AMBULATORY DYSFUNCTION Continue PT OT evaluation Plan to transition to [facility] facility when accepted Full Code DVT PROPHYLAXIS Apixaban DISPOSITION Plan to transition to [facility] facility when accepted Current Inpatient Medications: Current Inpatient Medications Medications (Trade) Dose Ordered Sig/Mak Route Start Time Stop Time Status Last Admin Dose Admin Promethazine HCl 12.5 mg/Sodium Chloride 50.5 ml @ 204 mls/hr Q6H PRN IV 12/15/17 17:15 01/14/18 17:14 Apixaban (Eliquis Tab) 2.5 mg BID PO 12/15/17 21:00 01/14/18 20:59 01/12/18 09:20 2.5 MG Atorvastatin Calcium (Lipitor Tab) 40 mg DAILY PO 12/16/17 09:00 01/15/18 08:59 01/12/18 09:19 40 MG Bisacodyl (Dulcolax Supp) 10 mg DAILY PRN [place] 12/15/17 18:00 01/14/18 17:59 Diltiazem HCl (TIAzac CAP) 120 mg DAILY PO 12/16/17 09:00 01/15/18 08:59 01/12/18 09:20 120 MG Latanoprost (Xalatan Oph Soln) 1 drops HS OPB 12/15/17 21:00 01/14/18 20:59 01/11/18 21:40 1 DROPS Levothyroxine Sodium (Synthroid Tab) 100 mcg DAILYBB PO 12/16/17 06:30 01/15/18 06:29 01/12/18 05:44 100 MCG Magnesium Hydroxide (Milk Of Magnesia Susp) 30 ml DAILY PRN PO 12/15/17 18:00 01/14/18 17:59 Oxybutynin Chloride (Ditropan-Xl Tab) 10 mg DAILY PO 12/16/17 09:00 01/15/18 08:59 01/12/18 09:21 10 MG Potassium Chloride (Klor-Con Tab) 20 meq DAILY PO 12/16/17 09:00 01/15/18 08:59 01/12/18 09:21 20 MEQ Sodium Biphosphate/ Sodium Phosphate (Fleet Enema) 118 ml DAILY PRN [place] 12/15/17 18:00 01/14/18 17:59 Ipratropium [place] (Atrovent 0.02% 0.5MG/2.5ML Neb) 0.5 mg Q4H PRN INH 12/18/17 11:30 01/17/18 11:29 01/06/18 17:14 0.5 MG Levalbuterol (Xopenex 0.63 Mg/ 3 Ml Neb) 0.63 mg Q4H PRN INH 12/18/17 11:30 01/17/18 11:29 01/06/18 17:13 0.63 MG Celecoxib (CeleBREX CAP) 200 mg QAM PO 12/19/17 09:00 01/18/18 08:59 01/12/18 09:21 200 MG Metoprolol Succinate (Toprol Xl Tab) 50 mg QAM PO 12/21/17 09:00 01/20/18 08:59 01/12/18 09:20 50 MG Aspirin (Ecotrin Tab) 81 mg DAILY PO 12/21/17 09:00 01/20/18 08:59 01/12/18 09:21 81 MG Tramadol HCl (Ultram Tab) 50 mg Q6H PRN PO 12/22/17 15:15 01/21/18 15:14 Acetaminophen (Tylenol Tab) 650 mg Q4H PRN PO 12/22/17 17:00 01/21/18 16:59 Miconazole Nitrate (Desenex Powder) 1 appln BID EXT 12/27/17 21:00 01/26/18 20:59 01/12/18 09:22 1 APPLN Olanzapine (Zyprexa Inj) 2.5 mg DAILY PRN IM 01/09/18 21:45 02/08/18 21:44
[2018-01-12 15:07] VITALS: BP 104/65; PULSE 72; TEMP 36.6; O2SAT 93
[2018-01-12 19:24] LABS: BASO % 0.3 %; BASO ABS # 0.02 K/uL (0-0.2); EOS % 3.3 %; EOS ABS # 0.23 K/uL (0-0.5); HEMATOCRIT 40.3 % (37-47); HEMOGLOBIN 13.2 g/dL (12.0-16.0); IG# 0.03 K/uL (0.00-0.02); LYMPH % 21.2 %; MEAN CORPUSCULAR HEMOGLOBIN 31.4 pg (25-34); MEAN CORPUSCULAR HGB CONC 32.8 g/dl (32-36); MEAN PLATELET VOLUME 8.7 fL (7.4-10.4); MONO % 9.3 %; MONO ABS # 0.66 K/uL (0.11-0.59); NEUT % 65.5 %; NEUT ABS # 4.62 K/uL (1.4-6.5); PLATELET COUNT 244 K/uL (130-400); RED CELL DISTRIBUTION WIDTH CV 15.2 % (11.5-14.5); RED CELL DISTRIBUTION WIDTH SD 53.6 fL (36.4-46.3); WHITE BLOOD COUNT 7.06 K/uL (4.8-10.8)
[2018-01-12 19:47] LABS: CREATININE 1.26 mg/dl (0.60-1.20); POTASSIUM 4.6 mmol/L (3.5-5.1)
[2018-01-12] MEDS: LATANOPROST 0.005% OP SOLN 2.5 ML BTL OPB SCH (21:01)
[2018-01-12] MEDS: SODIUM CHLORIDE 0.9% 1000ML 1,000 ML IV SCH (21:07)
--- NOTE | 2018-01-12 21:16 | Progress Note ---
Progress Note Date of Service Jan 12, 2018. Progress Note Reported by RN the patient was somewhat confused, saying that her daughter is coming On exam, patient seen resting in bed, not in distress, RN at the bedside throughout encounter Oriented to person and place Answers most questions appropriately Denies chest pain, shortness of breath, dizziness, nausea, abdominal pain or any other symptoms Denies focal neurologic deficits Clear breath sounds bilaterally Heart regular rhythm Neuro exam essentially normal, no gross focal neurologic deficits noted CBC in PRP ordered, creatinine increased to 1.2 Urinalysis and urine cultures pending IV NSS at 60 cc/h 1 L ordered as patient is reportedly not having good oral fluid intake Follow-up creatinine and urine cultures Yulissa Mayberry MD
[2018-01-12 23:10] VITALS: BP 122/73; PULSE 68; TEMP 36.5; O2SAT 94
[2018-01-13] MEDS: LEVOTHYROXINE 100 MCG TAB PO SCH (05:40)
[2018-01-13 07:49] VITALS: BP 123/56; PULSE 65; TEMP 36.6; O2SAT 91
[2018-01-13] MEDS: APIXABAN 2.5 MG TAB PO SCH ×2 (09:51→21:45)
[2018-01-13] MEDS: MICONAZOLE NITRATE POWDER 43 GM EXT SCH ×2 (09:51→21:00)
[2018-01-13] MEDS: DILTIAZEM HCL 120 MG EXT REL CAP PO SCH (09:52)
[2018-01-13] MEDS: ASPIRIN 81 MG ECTAB PO SCH (09:52)
[2018-01-13] MEDS: OXYBUTYNIN CHLORIDE 5 MG TABCR PO SCH (09:52)
[2018-01-13] MEDS: POTASSIUM CHLORIDE 20 MEQ TABCR PO SCH (09:53)
[2018-01-13] MEDS: ATORVASTATIN 40 MG TAB PO SCH (09:54)
[2018-01-13] MEDS: CeleBREX 200 MG CAP PO SCH (09:54)
[2018-01-13] MEDS: METOPROLOL SUCC 50MG EXT REL TAB PO SCH (09:54)
[2018-01-13] MEDS: SODIUM CHLORIDE 0.9% 1000ML 1,000 ML IV SCH (12:49)
[2018-01-13 15:46] VITALS: BP 103/65; PULSE 64; TEMP 36.9; O2SAT 93
--- NOTE | 2018-01-13 16:18 | Progress Note ---
Internal Med Progress Note Date of Service: Jan 13, 2018. Provider Documentation: SUBJECTIVE: Seen patient at bedside States feeling well Denies chest pain, SOB, abd pain, dizziness Transient Confusion seemed to have resolved Refuses physical exam OBJECTIVE: Vital Signs-as noted below Physical Exam: Refused Physical Exam Lab data as noted below. ASSESSMENT & PLAN: Acute on Chronic Hypoxic Respiratory Failure H/O COPD and DEONDRE Resolved Currently saturating well on RA CXR:small left pleural effusion with left basilar consolidation which are also noted on prior CT scan Appreciate ID input No indication for Abx currently Needs repeat CXR in 4-6 weeks to ensure radiographic resolution. Hypoxic during night: supplemental 02 while sleeping Nebs PRN Repeat CXR: mild pulmonary vascular congestion Continue lasix PRN Metabolic Encephalopathy: Likely 2/2 Hypoxia H/O dementia Resolved Chronic Atrial Fibrillation Continue Metoprolol, Diltiazem Apixaban for anticoagulation currently asymptomatic Left Knee Pain: 2/2 severe OA Appreciate Orthopedics help S/P Steroid Injection PT/OT Pain control Chronic Diastolic CHF No signs of decompensation continue home meds as able Hypothyroidism: continue levothyroxine Ambulatory Dysfunction: PT/OT SNF when accepted DVT Px: On Apixaban Code Status: Full Code Disposition: SNF when accepted Vital Signs: Date Time Temp Pulse Resp B/P (MAP) Pulse Ox O2 Delivery O2 Flow Rate FiO2 01/13/18 15:46 36.9 64 14 103/65 (78) 93 Room Air 01/13/18 10:38 Room Air 01/13/18 07:49 36.6 65 18 123/56 (78) 91 Room Air 01/13/18 00:15 Room Air 01/12/18 23:10 36.5 68 16 122/73 (89) 94 Room Air Lab Results: Results Past 24 Hours Test 01/12/18 19:10 01/13/18 13:25 Range/Units White Blood Count 7.06 4.8-10.8 K/uL Red Blood Count 4.20 4.2-5.4 M/uL Hemoglobin 13.2 12.0-16.0 g/dL Hematocrit 40.3 37-47 % Mean Corpuscular Volume 96.0 80-100 fL Mean Corpuscular Hemoglobin 31.4 25-34 pg Mean Corpuscular Hemoglobin Concent 32.8 32-36 g/dl Platelet Count 244 130-400 K/uL Mean Platelet Volume 8.7 7.4-10.4 fL Neutrophils (%) (Auto) 65.5 % Lymphocytes (%) (Auto) 21.2 % Monocytes (%) (Auto) 9.3 % Eosinophils (%) (Auto) 3.3 % Basophils (%) (Auto) 0.3 % Neutrophils # (Auto) 4.62 1.4-6.5 K/uL Lymphocytes # (Auto) 1.50 1.2-3.4 K/uL Monocytes # (Auto) 0.66 0.11-0.59 K/uL Eosinophils # (Auto) 0.23 0-0.5 K/uL Basophils # (Auto) 0.02 0-0.2 K/uL RDW Standard Deviation 53.6 36.4-46.3 fL RDW Coefficient of Variation 15.2 11.5-14.5 % Immature Granulocyte % (Auto) 0.4 % Immature Granulocyte # (Auto) 0.03 0.00-0.02 K/uL Sodium Level 133 136-145 mmol/L Potassium Level 4.6 3.5-5.1 mmol/L Chloride Level 99 98-107 mmol/L Carbon Dioxide Level 29 21-32 mmol/L Anion Gap 5.0 3-11 mmol/L Blood Urea Nitrogen 18 7-18 mg/dl Creatinine 1.26 0.60-1.20 mg/dl Est Creatinine Clear Calc Drug Dose 37.6 ml/min Estimated GFR () 45.0 Estimated GFR (Non- 38.8 BUN/Creatinine Ratio 14.5 10-20 Random Glucose 163 70-99 mg/dl Calcium Level 9.0 8.5-10.1 mg/dl Urine Color YELLOW Urine Appearance CLEAR CLEAR Urine pH 5.5 4.5-7.5 Urine Specific [place] 1.014 1.000-1.030 Urine Protein NEG NEG Urine Glucose (UA) NEG NEG Urine Ketones NEG NEG Urine Occult Blood NEG NEG Urine Nitrite NEG NEG Urine Bilirubin NEG NEG Urine Urobilinogen NEG NEG Urine Leukocyte Esterase TRACE NEG Urine WBC (Auto) 1-5 0-5 /hpf Urine RBC (Auto) 0-4 0-4 /hpf Urine Hyaline Casts (Auto) 1-5 0-5 /lpf Urine Epithelial Cells (Auto) >30 0-5 /lpf Urine Bacteria (Auto) NEG NEG
[2018-01-13] MEDS: LATANOPROST 0.005% OP SOLN 2.5 ML BTL OPB SCH (21:45)
[2018-01-13 23:41] VITALS: BP 145/84; PULSE 60; TEMP 36.5; O2SAT 90
[2018-01-14] MEDS: LEVOTHYROXINE 100 MCG TAB PO SCH (05:19)
[2018-01-14 06:49] VITALS: BP 103/58; PULSE 84; O2SAT 93
[2018-01-14] MEDS: MICONAZOLE NITRATE POWDER 43 GM EXT SCH ×2 (08:49→21:49)
[2018-01-14] MEDS: OXYBUTYNIN CHLORIDE 5 MG TABCR PO SCH (08:50)
[2018-01-14] MEDS: CeleBREX 200 MG CAP PO SCH (08:50)
[2018-01-14] MEDS: APIXABAN 2.5 MG TAB PO SCH ×2 (08:51→22:18)
[2018-01-14] MEDS: ATORVASTATIN 40 MG TAB PO SCH (08:51)
[2018-01-14] MEDS: ASPIRIN 81 MG ECTAB PO SCH (08:51)
[2018-01-14] MEDS: POTASSIUM CHLORIDE 20 MEQ TABCR PO SCH (08:51)
[2018-01-14] MEDS: DILTIAZEM HCL 120 MG EXT REL CAP PO SCH (08:52)
[2018-01-14] MEDS: METOPROLOL SUCC 50MG EXT REL TAB PO SCH (08:52)
[2018-01-14 15:05] VITALS: BP 111/53; PULSE 66; TEMP 36.4; O2SAT 94
--- NOTE | 2018-01-14 16:10 | Progress Note ---
Internal Med Progress Note Date of Service: Jan 14, 2018. Provider Documentation: SUBJECTIVE: Seen and examined patient at bedside along with RN "I feel fine" Reluctant to discuss in detail Tries to avoid during conversation Labs pending OBJECTIVE: Vital Signs-as noted below Physical Exam: General Appearance:Moderately built and nourished, no apparent distress Head: normocephalic, Atraumatic Eyes: normal inspection, EOMI, PERRL Neck: supple, Trachea midline Respiratory/Chest: Normal breath sounds, CTA Cardiovascular: S1, S2, No murmur Abdomen/GI:Soft, Non tender, Bowel sounds present Extremities/Musculoskelatal:normal inspection, 1+ B/L LE edema Neurologic/Psych:grossly no focal neurological deficits Lab data as noted below. ASSESSMENT & PLAN: Acute on Chronic Hypoxic Respiratory Failure H/O COPD and DEONDRE Resolved Currently saturating well on RA CXR:small left pleural effusion with left basilar consolidation which are also noted on prior CT scan Appreciate ID input No indication for Abx currently Needs repeat CXR in 4-6 weeks to ensure radiographic resolution. Hypoxic during night: supplemental 02 while sleeping Nebs PRN Repeat CXR: mild pulmonary vascular congestion Continue lasix PRN Labs pending today Vitals stable Metabolic Encephalopathy: Likely 2/2 Hypoxia H/O dementia Resolved Chronic Atrial Fibrillation Continue Metoprolol, Diltiazem Apixaban for anticoagulation currently asymptomatic Left Knee Pain: 2/2 severe OA Appreciate Orthopedics help S/P Steroid Injection PT/OT Pain control Chronic Diastolic CHF No signs of decompensation continue home meds as able Hypothyroidism: continue levothyroxine Ambulatory Dysfunction: PT/OT SNF when accepted DVT Px: On Apixaban Code Status: Full Code Disposition: SNF when accepted Vital Signs: Date Time Temp Pulse Resp B/P (MAP) Pulse Ox O2 Delivery O2 Flow Rate FiO2 01/14/18 15:05 36.4 66 16 111/53 (72) 94 Room Air 01/14/18 08:42 Room Air 01/14/18 06:49 84 17 103/58 (73) 93 Room Air 01/13/18 23:45 Room Air 01/13/18 23:41 36.5 60 18 145/84 (104) 90 Room Air Lab Results: Results Past 24 Hours Test 01/14/18 15:45 Range/Units
[2018-01-14 16:31] LABS: CALCIUM 8.7 mg/dl (8.5-10.1); CREATININE 1.13 mg/dl (0.60-1.20); POTASSIUM 5.1 mmol/L (3.5-5.1)
[2018-01-14] MEDS: LATANOPROST 0.005% OP SOLN 2.5 ML BTL OPB SCH (21:51)
[2018-01-14 23:38] VITALS: BP 100/61; PULSE 85; TEMP 36.5; O2SAT 92
[2018-01-15] MEDS: LEVOTHYROXINE 100 MCG TAB PO SCH (05:49)
[2018-01-15 07:08] VITALS: BP 116/56; PULSE 83; TEMP 36.6; O2SAT 91
[2018-01-15 07:30] VITALS: BP 112/56; PULSE 63; TEMP 36.5; O2SAT 90
[2018-01-15] MEDS: MICONAZOLE NITRATE POWDER 43 GM EXT SCH ×2 (08:30→22:12)
[2018-01-15] MEDS: CeleBREX 200 MG CAP PO SCH (10:56)
[2018-01-15] MEDS: ASPIRIN 81 MG ECTAB PO SCH (10:56)
[2018-01-15] MEDS: OXYBUTYNIN CHLORIDE 5 MG TABCR PO SCH (10:56)
[2018-01-15] MEDS: APIXABAN 2.5 MG TAB PO SCH (10:56)
[2018-01-15] MEDS: DILTIAZEM HCL 120 MG EXT REL CAP PO SCH (10:57)
[2018-01-15] MEDS: METOPROLOL SUCC 50MG EXT REL TAB PO SCH (10:57)
[2018-01-15] MEDS: FUROSEMIDE 20 MG TAB PO SCH (10:57)
[2018-01-15] MEDS: ATORVASTATIN 40 MG TAB PO SCH (10:57)
[2018-01-15] MEDS: POTASSIUM CHLORIDE 20 MEQ TABCR PO SCH (10:57)
[2018-01-15 14:58] VITALS: BP 105/64; PULSE 67; TEMP 36.6; O2SAT 93
--- NOTE | 2018-01-15 15:18 | Progress Note ---
Internal Med Progress Note Date of Service: Jan 15, 2018. Provider Documentation: SUBJECTIVE: Seen and examined patient at bedside Doing well today at bedside Requests patient be switched from Eliquis to coumadin Patient denies chest pain, SOB, dizziness also requests PT every day Has been refusing most of the meds OBJECTIVE: Vital Signs-as noted below Physical Exam: General Appearance:Moderately built and nourished, no apparent distress Head: normocephalic, Atraumatic Eyes: normal inspection, EOMI, PERRL Neck: supple, Trachea midline Respiratory/Chest: Normal breath sounds, CTA Cardiovascular: S1, S2, No murmur Abdomen/GI:Soft, Non tender, Bowel sounds present Extremities/Musculoskelatal:normal inspection, 1+ B/L LE edema Neurologic/Psych:grossly no focal neurological deficits Lab data as noted below. ASSESSMENT & PLAN: Acute on Chronic Hypoxic Respiratory Failure H/O COPD and DEONDRE Resolved Currently saturating well on RA CXR:small left pleural effusion with left basilar consolidation which are also noted on prior CT scan Appreciate ID input No indication for Abx currently Needs repeat CXR in 4-6 weeks to ensure radiographic resolution. Hypoxic during night: supplemental 02 while sleeping Nebs PRN Repeat CXR: mild pulmonary vascular congestion Continue lasix Q48H for now Metabolic Encephalopathy: Likely 2/2 Hypoxia H/O dementia Resolved Chronic Atrial Fibrillation Continue Metoprolol, Diltiazem Apixaban transitioned to >>> coumadin currently asymptomatic Monitor INR Left Knee Pain: 2/2 severe OA Appreciate Orthopedics help S/P Steroid Injection PT/OT Pain control Chronic Diastolic CHF No signs of decompensation continue home meds if patient allows Hypothyroidism: continue levothyroxine Ambulatory Dysfunction: PT/OT SNF when accepted DVT Px: On Coumadin Code Status: Full Code Disposition: SNF when accepted Vital Signs: Date Time Temp Pulse Resp B/P (MAP) Pulse Ox O2 Delivery O2 Flow Rate FiO2 01/15/18 14:58 36.6 67 18 105/64 (78) 93 Room Air 01/15/18 07:45 Room Air 01/15/18 07:30 36.5 63 20 112/56 (74) 90 Room Air 01/15/18 07:08 36.6 83 21 116/56 (76) 91 Room Air 01/15/18 01:25 Room Air 01/14/18 23:38 36.5 85 18 100/61 (74) 92 Room Air Lab Results: Results Past 24 Hours Test 01/14/18 15:45 Range/Units Sodium Level 135 136-145 mmol/L Potassium Level 5.1 3.5-5.1 mmol/L Chloride Level 102 98-107 mmol/L Carbon Dioxide Level 28 21-32 mmol/L Anion Gap 5.0 3-11 mmol/L Blood Urea Nitrogen 18 7-18 mg/dl Creatinine 1.13 0.60-1.20 mg/dl Est Creatinine Clear Calc Drug Dose 42.0 ml/min Estimated GFR () 51.3 Estimated GFR (Non- 44.3 BUN/Creatinine Ratio 15.8 10-20 Random Glucose 116 70-99 mg/dl Calcium Level 8.7 8.5-10.1 mg/dl
[2018-01-15] MEDS ORDERED: WARFARIN SOD 3 MG TAB PO SCH (16:00)
[2018-01-15] MEDS: LATANOPROST 0.005% OP SOLN 2.5 ML BTL OPB SCH (21:31)
[2018-01-15 23:53] VITALS: BP 97/66; PULSE 57; TEMP 36.6; O2SAT 90
[2018-01-16] MEDS: LEVOTHYROXINE 100 MCG TAB PO SCH (06:09)
[2018-01-16 07:34] VITALS: BP 108/51; PULSE 80; TEMP 36.5; O2SAT 92
[2018-01-16] MEDS: MICONAZOLE NITRATE POWDER 43 GM EXT SCH ×2 (08:09→21:30)
[2018-01-16] MEDS: ASPIRIN 81 MG ECTAB PO SCH (08:38)
[2018-01-16] MEDS: CeleBREX 200 MG CAP PO SCH (08:38)
[2018-01-16] MEDS: OXYBUTYNIN CHLORIDE 5 MG TABCR PO SCH (08:38)
[2018-01-16] MEDS: ATORVASTATIN 40 MG TAB PO SCH (08:38)
[2018-01-16] MEDS: METOPROLOL SUCC 50MG EXT REL TAB PO SCH (08:38)
[2018-01-16 08:42] LABS: CALCIUM 9.4 mg/dl (8.5-10.1); CREATININE 1.03 mg/dl (0.60-1.20); POTASSIUM 4.5 mmol/L (3.5-5.1)
[2018-01-16] MEDS: DILTIAZEM HCL 120 MG EXT REL CAP PO SCH (08:42)
[2018-01-16] MEDS: POTASSIUM CHLORIDE 20 MEQ TABCR PO SCH (09:11)
[2018-01-16 15:01] VITALS: BP 98/57; PULSE 66; TEMP 36.3; O2SAT 95
--- NOTE | 2018-01-16 15:47 | Progress Note ---
Internal Med Progress Note Date of Service: Jan 16, 2018. Provider Documentation: SUBJECTIVE: Seen and examined patient at bedside Feels well today No complaints Took her medications today No family at bedside Denies chest pain, SOB, dizziness OBJECTIVE: Vital Signs-as noted below Physical Exam: General Appearance:Moderately built and nourished, no apparent distress Head: normocephalic, Atraumatic Eyes: normal inspection, EOMI, PERRL Neck: supple, Trachea midline Respiratory/Chest: Normal breath sounds, CTA Cardiovascular: S1, S2, No murmur Abdomen/GI:Soft, Non tender, Bowel sounds present Extremities/Musculoskelatal:normal inspection, 1+ B/L LE edema Neurologic/Psych:grossly no focal neurological deficits Lab data as noted below. ASSESSMENT & PLAN: Acute on Chronic Hypoxic Respiratory Failure H/O COPD and DEONDRE Resolved Currently saturating well on RA CXR:small left pleural effusion with left basilar consolidation which are also noted on prior CT scan Appreciate ID input No indication for Abx currently Needs repeat CXR in 4-6 weeks to ensure radiographic resolution. Hypoxic during night: supplemental 02 while sleeping Nebs PRN Repeat CXR: mild pulmonary vascular congestion Continue Lasix Q48H for now Metabolic Encephalopathy: Likely 2/2 Hypoxia H/O dementia Resolved Chronic Atrial Fibrillation Continue Metoprolol, Diltiazem Apixaban transitioned to >>> coumadin currently asymptomatic Monitor INR:1.0 Left Knee Pain: 2/2 severe OA Appreciate Orthopedics help S/P Steroid Injection PT/OT Pain is controlled Chronic Diastolic CHF No signs of decompensation continue home meds if patient allows Hypothyroidism: continue levothyroxine Ambulatory Dysfunction: PT/OT SNF when accepted DVT Px: On Coumadin Code Status: Full Code Disposition: SNF when accepted senior manager creative services following Vital Signs: Date Time Temp Pulse Resp B/P (MAP) Pulse Ox O2 Delivery O2 Flow Rate FiO2 01/16/18 15:01 36.3 66 16 98/57 (71) 95 Room Air 01/16/18 08:04 Room Air 01/16/18 07:34 36.5 80 18 108/51 (70) 92 Room Air 01/15/18 23:53 36.6 57 18 97/66 (76) 90 Room Air 01/15/18 23:45 Room Air Lab Results: Results Past 24 Hours Test 01/16/18 05:38 01/16/18 05:50 Range/Units Prothrombin Time 10.5 9.0-12.0 SECONDS Prothromb Time International Ratio 1.0 0.9-1.1 Sodium Level 137 136-145 mmol/L Potassium Level 4.5 3.5-5.1 mmol/L Chloride Level 102 98-107 mmol/L Carbon Dioxide Level 31 21-32 mmol/L Anion Gap 4.0 3-11 mmol/L Blood Urea Nitrogen 16 7-18 mg/dl Creatinine 1.03 0.60-1.20 mg/dl Est Creatinine Clear Calc Drug Dose 47.4 ml/min Estimated GFR () 57.4 Estimated GFR (Non- 49.5 BUN/Creatinine Ratio 15.6 10-20 Random Glucose 105 70-99 mg/dl Calcium Level 9.4 8.5-10.1 mg/dl
[2018-01-16] MEDS: WARFARIN SOD 5 MG TAB PO SCH (15:55)
[2018-01-16] MEDS: LATANOPROST 0.005% OP SOLN 2.5 ML BTL OPB SCH (21:43)
[2018-01-16 23:21] VITALS: BP 149/99; PULSE 65; TEMP 36.7; O2SAT 91
[2018-01-16 23:40] VITALS: O2SAT 91
[2018-01-17] MEDS: LEVOTHYROXINE 100 MCG TAB PO SCH (06:38)
[2018-01-17 06:43] LABS: INR 1.1 (0.9-1.1)
[2018-01-17 06:52] VITALS: BP 144/75; PULSE 65; TEMP 36.4; O2SAT 91
[2018-01-17 07:13] VITALS: PULSE 84; O2SAT 91
[2018-01-17] MEDS: LEVALBUTEROL 0.63MG/3 ML NEB INH PRN ×2 (07:13→16:03)
[2018-01-17] MEDS: IPRATROPIUM BROMIDE NEB SOLN 0.02% 2.5 ML VIAL INH PRN (07:13)
[2018-01-17] MEDS: ASPIRIN 81 MG ECTAB PO SCH (08:42)
[2018-01-17] MEDS: DILTIAZEM HCL 120 MG EXT REL CAP PO SCH (08:42)
[2018-01-17] MEDS: OXYBUTYNIN CHLORIDE 5 MG TABCR PO SCH (08:42)
[2018-01-17] MEDS: POTASSIUM CHLORIDE 20 MEQ TABCR PO SCH (08:42)
[2018-01-17] MEDS: FUROSEMIDE 20 MG TAB PO SCH (08:42)
[2018-01-17] MEDS: ATORVASTATIN 40 MG TAB PO SCH (08:42)
[2018-01-17] MEDS: CeleBREX 200 MG CAP PO SCH (08:42)
[2018-01-17] MEDS: METOPROLOL SUCC 50MG EXT REL TAB PO SCH (08:42)
[2018-01-17] MEDS: MICONAZOLE NITRATE POWDER 43 GM EXT SCH ×2 (09:05→21:00)
--- NOTE | 2018-01-17 13:30 | Progress Note ---
Internal Med Progress Note Date of Service: Jan 17, 2018. Provider Documentation: SUBJECTIVE: Seen and examined patient at bedside Family at bedside Denies chest pain, SOB No complaints OBJECTIVE: Vital Signs-as noted below Physical Exam: General Appearance:Moderately built and nourished, no apparent distress Head: normocephalic, Atraumatic Eyes: normal inspection, EOMI, PERRL Neck: supple, Trachea midline Respiratory/Chest: Normal breath sounds, CTA Cardiovascular: S1, S2, No murmur Abdomen/GI:Soft, Non tender, Bowel sounds present Extremities/Musculoskelatal:normal inspection, 1+ B/L LE edema Neurologic/Psych:grossly no focal neurological deficits Lab data as noted below. ASSESSMENT & PLAN: Acute on Chronic Hypoxic Respiratory Failure H/O COPD and DEONDRE Resolved Currently saturating well on RA CXR:small left pleural effusion with left basilar consolidation which are also noted on prior CT scan Appreciate ID input No indication for Abx currently Needs repeat CXR in 4-6 weeks to ensure radiographic resolution. Hypoxic during night: supplemental 02 while sleeping Nebs PRN Repeat CXR: mild pulmonary vascular congestion Continue Lasix Q48H for now Awaiting for placement Metabolic Encephalopathy: Likely 2/2 Hypoxia H/O dementia Resolved Chronic Atrial Fibrillation Continue Metoprolol, Diltiazem Apixaban transitioned to >>> coumadin currently asymptomatic Monitor INR:1.0>>1.1 Will give Coumadin 7mg today Left Knee Pain: 2/2 severe OA Appreciate Orthopedics help S/P Steroid Injection PT/OT Pain is controlled Chronic Diastolic CHF No signs of decompensation continue home meds if patient allows Hypothyroidism: continue levothyroxine Ambulatory Dysfunction: PT/OT SNF when accepted DVT Px: On Coumadin Code Status: Full Code Disposition: SNF when accepted director of child welfare services following Vital Signs: Date Time Temp Pulse Resp B/P (MAP) Pulse Ox O2 Delivery O2 Flow Rate FiO2 01/17/18 07:54 Room Air 01/17/18 07:13 84 16 91 Room Air 01/17/18 06:52 36.4 65 16 144/75 (98) 91 Room Air 01/16/18 23:40 91 Room Air 2.0 01/16/18 23:21 36.7 65 16 149/99 (116) 91 Room Air 01/16/18 19:45 Room Air 01/16/18 15:01 36.3 66 16 98/57 (71) 95 Room Air Lab Results: Results Past 24 Hours Test 01/17/18 05:42 Range/Units Prothrombin Time 11.7 9.0-12.0 SECONDS Prothromb Time International Ratio 1.1 0.9-1.1
[2018-01-17] MEDS ORDERED: NURSING VERBAL MED ORDER ONE (15:45)
[2018-01-17] MEDS ORDERED: WARFARIN SOD 2 MG TAB PO ONE (16:00)
[2018-01-17 16:02] VITALS: BP 120/70; PULSE 60; TEMP 36.7; O2SAT 91
[2018-01-17 16:04] VITALS: PULSE 88; O2SAT 92
[2018-01-17] MEDS: WARFARIN SOD 5 MG TAB PO SCH (16:40)
[2018-01-17 17:06] VITALS: O2SAT 92
[2018-01-17] MEDS: LATANOPROST 0.005% OP SOLN 2.5 ML BTL OPB SCH (21:39)
[2018-01-17 23:16] VITALS: BP 132/70; PULSE 69; TEMP 36.5; O2SAT 93
[2018-01-18 05:51] LABS: INR 1.9 (0.9-1.1)
[2018-01-18] MEDS: LEVOTHYROXINE 100 MCG TAB PO SCH (06:15)
[2018-01-18 07:30] VITALS: BP 138/68; PULSE 73; TEMP 36.5; O2SAT 91
[2018-01-18] MEDS: MICONAZOLE NITRATE POWDER 43 GM EXT SCH ×2 (09:00→21:09)
[2018-01-18] MEDS: OXYBUTYNIN CHLORIDE 5 MG TABCR PO SCH (09:00)
[2018-01-18] MEDS: ATORVASTATIN 40 MG TAB PO SCH (09:07)
[2018-01-18] MEDS: POTASSIUM CHLORIDE 20 MEQ TABCR PO SCH (09:07)
[2018-01-18] MEDS: DILTIAZEM HCL 120 MG EXT REL CAP PO SCH (09:07)
[2018-01-18] MEDS: METOPROLOL SUCC 50MG EXT REL TAB PO SCH (09:07)
[2018-01-18] MEDS: ASPIRIN 81 MG ECTAB PO SCH (09:07)
--- NOTE | 2018-01-18 15:10 | Progress Note ---
Internal Med Progress Note Date of Service: Jan 18, 2018. Provider Documentation: SUBJECTIVE: Seen and examined patient at bedside Doing well today Family at bedside Denies chest pain, SOB, Dizziness No complaints Comfortably sitting in bed OBJECTIVE: Vital Signs-as noted below Physical Exam: General Appearance:Moderately built and nourished, no apparent distress Head: normocephalic, Atraumatic Eyes: normal inspection, EOMI, PERRL Neck: supple, Trachea midline Respiratory/Chest: Normal breath sounds, CTA Cardiovascular: S1, S2, No murmur Abdomen/GI:Soft, Non tender, Bowel sounds present Extremities/Musculoskelatal:normal inspection, 1+ B/L LE edema Neurologic/Psych:grossly no focal neurological deficits Lab data as noted below. ASSESSMENT & PLAN: Acute on Chronic Hypoxic Respiratory Failure :Resolved H/O COPD and DEONDRE saturating well on RA CXR:small left pleural effusion with left basilar consolidation which are also noted on prior CT scan Appreciate ID input No indication for Abx currently Needs repeat CXR in 4-6 weeks to ensure radiographic resolution. Hypoxic during night: supplemental 02 while sleeping Nebs PRN Repeat CXR: mild pulmonary vascular congestion Continue Lasix Q48H for now Awaiting for placement Metabolic Encephalopathy: Likely 2/2 Hypoxia H/O dementia Resolved Chronic Atrial Fibrillation Continue Metoprolol, Diltiazem Apixaban transitioned to >>> coumadin currently asymptomatic Monitor INR:1.0>>1.1>>>1.9 Will give Coumadin 5mg today Left Knee Pain: 2/2 severe OA Appreciate Orthopedics help S/P Steroid Injection PT/OT Pain is controlled Chronic Diastolic CHF No signs of decompensation continue home meds if patient allows Hypothyroidism: continue levothyroxine Ambulatory Dysfunction: PT/OT SNF when accepted DVT Px: On Coumadin Code Status: Full Code Disposition: SNF when accepted technical services assistant following Vital Signs: Date Time Temp Pulse Resp B/P (MAP) Pulse Ox O2 Delivery O2 Flow Rate FiO2 01/18/18 07:30 36.5 73 17 138/68 (91) 91 Room Air 01/18/18 07:21 Room Air 01/18/18 00:00 Room Air 01/17/18 23:16 36.5 69 18 132/70 (90) 93 Room Air 01/17/18 17:06 92 Room Air 01/17/18 16:04 88 16 92 Room Air 01/17/18 16:02 36.7 60 18 120/70 (87) 91 Lab Results: Results Past 24 Hours Test 01/18/18 05:11 Range/Units Prothrombin Time 19.4 9.0-12.0 SECONDS Prothromb Time International Ratio 1.9 0.9-1.1
[2018-01-18 15:13] VITALS: BP 117/66; PULSE 69; TEMP 36.6; O2SAT 91
[2018-01-18] MEDS: WARFARIN SOD 5 MG TAB PO SCH (15:30)
[2018-01-18] MEDS: LATANOPROST 0.005% OP SOLN 2.5 ML BTL OPB SCH (21:07)
[2018-01-18 22:48] VITALS: BP 174/77; PULSE 65; TEMP 36.3; O2SAT 91
[2018-01-18 22:49] VITALS: BP 117/79
[2018-01-19] MEDS: LEVOTHYROXINE 100 MCG TAB PO SCH (05:55)
[2018-01-19 06:15] LABS: INR 3.7 (0.9-1.1)
[2018-01-19 07:20] VITALS: BP 128/71; PULSE 78; TEMP 36.3; O2SAT 91
[2018-01-19] MEDS: MICONAZOLE NITRATE POWDER 43 GM EXT SCH ×2 (09:03→21:10)
[2018-01-19] MEDS: METOPROLOL SUCC 50MG EXT REL TAB PO SCH (09:04)
[2018-01-19] MEDS: ATORVASTATIN 40 MG TAB PO SCH (09:04)
[2018-01-19] MEDS: OXYBUTYNIN CHLORIDE 5 MG TABCR PO SCH (09:04)
[2018-01-19] MEDS: ASPIRIN 81 MG ECTAB PO SCH (09:04)
[2018-01-19] MEDS: FUROSEMIDE 20 MG TAB PO SCH (09:05)
[2018-01-19] MEDS: DILTIAZEM HCL 120 MG EXT REL CAP PO SCH (09:05)
[2018-01-19] MEDS: POTASSIUM CHLORIDE 20 MEQ TABCR PO SCH (09:05)
--- NOTE | 2018-01-19 14:14 | Progress Note ---
Internal Med Progress Note Date of Service: Jan 19, 2018. Provider Documentation: SUBJECTIVE: Seen and examined patient at bedside No complaints No Family at bedside Denies chest pain, SOB, Dizziness INR supratherapeutic, Hold Coumadin today Monitor for any bleeding issues OBJECTIVE: Vital Signs-as noted below Physical Exam: General Appearance:Moderately built and nourished, no apparent distress Head: normocephalic, Atraumatic Eyes: normal inspection, EOMI, PERRL Neck: supple, Trachea midline Respiratory/Chest: Normal breath sounds, Basal Crackles Cardiovascular: S1, S2, No murmur Abdomen/GI:Soft, Non tender, Bowel sounds present Extremities/Musculoskelatal:normal inspection, 1+ B/L LE edema Neurologic/Psych:grossly no focal neurological deficits Lab data as noted below. ASSESSMENT & PLAN: Acute on Chronic Hypoxic Respiratory Failure :Resolved H/O COPD and DEONDRE saturating well on RA CXR:small left pleural effusion with left basilar consolidation which are also noted on prior CT scan Appreciate ID input No indication for Abx currently Needs repeat CXR in 4-6 weeks to ensure radiographic resolution. 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 Metabolic Encephalopathy: Likely 2/2 Hypoxia H/O dementia Resolved Chronic Atrial Fibrillation Continue Metoprolol, Diltiazem Apixaban transitioned to >>> Coumadin currently asymptomatic Monitor INR:1.0>>1.1>>>1.9>>3.7 Will hold Coumadin today Left Knee Pain: 2/2 severe OA Appreciate Orthopedics help S/P Steroid Injection PT/OT Pain is controlled Chronic Diastolic CHF No signs of decompensation continue home meds if patient allows Hypothyroidism: continue levothyroxine Ambulatory Dysfunction: PT/OT SNF when accepted DVT Px: On Coumadin Code Status: Full Code Disposition: SNF when accepted coordinator of genetic services following Vital Signs: Date Time Temp Pulse Resp B/P (MAP) Pulse Ox O2 Delivery O2 Flow Rate FiO2 01/19/18 07:50 Room Air 01/19/18 07:20 36.3 78 19 128/71 (90) 91 Room Air 01/19/18 00:00 Room Air 01/18/18 22:49 117/79 (92) 6/24/18 22:48 36.3 65 18 174/77 (109) 91 Room Air 01/18/18 15:35 Room Air 01/18/18 15:13 36.6 69 16 117/66 (83) 91 Lab Results: Results Past 24 Hours Test 01/19/18 05:07 Range/Units Prothrombin Time 37.9 9.0-12.0 SECONDS Prothromb Time International Ratio 3.7 0.9-1.1
[2018-01-19 15:17] VITALS: BP 113/72; PULSE 65; TEMP 36.6; O2SAT 91
[2018-01-19] MEDS: LATANOPROST 0.005% OP SOLN 2.5 ML BTL OPB SCH (21:10)
[2018-01-19 23:30] VITALS: BP 147/76; PULSE 65; TEMP 36.5; O2SAT 90
[2018-01-20] MEDS: LEVOTHYROXINE 100 MCG TAB PO SCH (05:31)
[2018-01-20 07:00] LABS: INR 4.9 (0.9-1.1)
[2018-01-20 07:51] VITALS: BP 143/84; PULSE 72; TEMP 36.5; O2SAT 94
[2018-01-20] MEDS: DILTIAZEM HCL 120 MG EXT REL CAP PO SCH (08:28)
[2018-01-20] MEDS: ATORVASTATIN 40 MG TAB PO SCH (08:28)
[2018-01-20] MEDS: POTASSIUM CHLORIDE 20 MEQ TABCR PO SCH (08:28)
[2018-01-20] MEDS: OXYBUTYNIN CHLORIDE 5 MG TABCR PO SCH (08:28)
[2018-01-20] MEDS: MICONAZOLE NITRATE POWDER 43 GM EXT SCH ×2 (08:29→20:55)
--- NOTE | 2018-01-20 08:36 | Progress Note ---
Medicine Progress Note Date & Time of Visit: Jan 20, 2018 at 08:30. Subjective Patient's RN Josephine was at the bedside throughout the whole encounter Seen sitting up in bed, having breakfast, not in distress, comfortable We asked permission to interview and to examine her, the patient give us permission States she feels fine overall Denies shortness of breath, chest pain, dizziness, bleeding Denies any other symptoms Objective Last 8 Hrs Date Time Temp Pulse Resp B/P (MAP) Pulse Ox O2 Delivery O2 Flow Rate FiO2 01/20/18 07:51 36.5 72 18 143/84 (103) 94 Room Air Physical Exam: General-oriented 3, speaking in sentences, no accessory muscle use Eyes- anicteric Neck- no JVD Lungs-very fine rales at the left base, no wheezing, clear in the right, good air entry bilaterally Heart-normal rate, regular rhythm; no murmur Abdomen-soft, nondistended, nontender Extremities-mild lower leg edema, no erythema/warmth/calf tenderness; peripheral pulses intact Neuro- alert, oriented x 2; no gross focal neurologic deficits noted Skin- warm & dry Laboratory Results: Last 24 Hours Test 01/20/18 06:13 Prothrombin Time 49.7 SECONDS Prothromb Time International Ratio 4.9 Assessment & Plan ACUTE ON CHRONIC HYPOXEMIC RESPIRATORY FAILURE, resolved [place] to be secondary to left lower lobe pneumonia, has completed antibiotic therapy Stable on room air No cough, shortness of breath CONFUSION /METABOLIC ENCEPHALOPATHY : Resolved Has dementia Appears to be at baseline CHRONIC DIASTOLIC HEART FAILURE : Euvolemic On Lasix 20 mg p.o. every other day Continue to monitor CHRONIC A FIB : Rate controlled with Diltiazem and Toprol. On Eliquis now transitioned to Coumadin Has received Coumadin 5 mg p.o. 3 days consecutively INR increased again to 4.9 No signs of bleeding Hold Coumadin dose today Check INR tomorrow LEFT KNEE PAIN Status post injection Denies pain HYPOTHYROIDISM : Continue levothyroxine SEVERE AMBULATORY DYSFUNCTION Continue PT OT evaluation Plan to transition to senior living facility when accepted Full Code DVT PROPHYLAXIS INR 4.9 Coumadin and hold DISPOSITION Plan to transition to senior living facility when accepted Patient has no questions when asked Current Inpatient Medications: Current Inpatient Medications Medications (Trade) Dose Ordered Sig/Mak Route Start Time Stop Time Status Last Admin Dose Admin Promethazine HCl 12.5 mg/Sodium Chloride 50.5 ml @ 204 mls/hr Q6H PRN IV 12/15/17 17:15 02/13/18 17:13 Atorvastatin Calcium (Lipitor Tab) 40 mg DAILY PO 12/16/17 09:00 02/14/18 08:58 01/19/18 09:04 40 MG Bisacodyl (Dulcolax Supp) 10 mg DAILY PRN [place] 12/15/17 18:00 02/13/18 17:58 Diltiazem HCl (TIAzac CAP) 120 mg DAILY PO 12/16/17 09:00 02/14/18 08:58 01/19/18 09:05 120 MG Latanoprost (Xalatan Oph Soln) 1 drops HS OPB 12/15/17 21:00 02/13/18 20:58 01/19/18 21:10 1 DROPS Levothyroxine Sodium (Synthroid Tab) 100 mcg DAILYBB PO 12/16/17 06:30 02/14/18 06:28 01/20/18 05:31 100 MCG Magnesium Hydroxide (Milk Of Magnesia Susp) 30 ml DAILY PRN PO 12/15/17 18:00 02/13/18 17:58 Oxybutynin Chloride (Ditropan-Xl Tab) 10 mg DAILY PO 12/16/17 09:00 02/14/18 08:58 01/19/18 09:04 10 MG Potassium Chloride (Klor-Con Tab) 20 meq DAILY PO 12/16/17 09:00 02/14/18 08:58 01/19/18 09:05 20 MEQ Sodium Biphosphate/ Sodium Phosphate (Fleet Enema) 118 ml DAILY PRN [place] 12/15/17 18:00 02/13/18 17:58 Metoprolol Succinate (Toprol Xl Tab) 50 mg QAM PO 12/21/17 09:00 01/20/18 08:59 01/19/18 09:04 50 MG Aspirin (Ecotrin Tab) 81 mg DAILY PO 12/21/17 09:00 01/20/18 08:59 01/19/18 09:04 81 MG Tramadol HCl (Ultram Tab) 50 mg Q6H PRN PO 12/22/17 15:15 01/21/18 15:14 Acetaminophen (Tylenol Tab) 650 mg Q4H PRN PO 12/22/17 17:00 01/21/18 16:59 Miconazole Nitrate (Desenex Powder) 1 appln BID EXT 12/27/17 21:00 01/26/18 20:59 01/19/18 21:10 1 APPLN Olanzapine (Zyprexa Inj) 2.5 mg DAILY PRN IM 01/09/18 21:45 02/08/18 21:44 Furosemide (Lasix Tab) 20 mg Q2D@0900 PO 01/15/18 09:00 02/14/18 08:59 01/19/18 09:05 20 MG Warfarin Sodium (Coumadin Tab) 5 mg DAILY@16 PO 01/16/18 16:00 02/14/18 15:59 Future Hold 01/18/18 15:30 5 MG Ipratropium [place] (Atrovent 0.02% 0.5MG/2.5ML Neb) 0.5 mg Q4H PRN INH 01/17/18 16:00 02/16/18 15:59 Levalbuterol (Xopenex 0.63 Mg/ 3 Ml Neb) 0.63 mg Q4H PRN INH 01/17/18 16:00 02/16/18 15:59 01/17/18 16:03 0.63 MG
[2018-01-20 15:07] VITALS: BP 136/69; PULSE 73; TEMP 36.6; O2SAT 94
[2018-01-20 16:45] VITALS: O2SAT 94
[2018-01-20] MEDS: LATANOPROST 0.005% OP SOLN 2.5 ML BTL OPB SCH (20:55)
[2018-01-20 23:30] VITALS: O2SAT 95
[2018-01-21] VITALS (7 sets, daily range): BP systolic 93–150; BP diastolic 59–94; PULSE 65–75; TEMP 36.6–36.7; O2SAT 91–94
[2018-01-21] MEDS: LEVOTHYROXINE 100 MCG TAB PO SCH (05:37)
[2018-01-21 06:39] LABS: INR 4.9 (0.9-1.1)
[2018-01-21 07:02] LABS: CREATININE 0.83 mg/dl (0.60-1.20); POTASSIUM 4.2 mmol/L (3.5-5.1)
--- NOTE | 2018-01-21 08:46 | Progress Note ---
Medicine Progress Note Date & Time of Visit: Jan 21, 2018 at 08:46. Subjective seen with BENJI Bravo at bedside throughout whole encounter asked for permission to evaluated her and the patient has agreed seen resting in bedside chair, comfortable denies shortness of breath, chest pain, dizziness no other symptoms states she feels fine overall Objective Last 8 Hrs Date Time Temp Pulse Resp B/P (MAP) Pulse Ox O2 Delivery O2 Flow Rate FiO2 01/21/18 07:48 36.6 75 15 150/83 (105) 92 Room Air 01/21/18 01:41 94 Room Air Physical Exam: General-oriented 3, speaking in sentences, no accessory muscle use Eyes- anicteric Neck- no JVD Lungs-clear breath sounds bilaterally, no rales/wheezes Heart-normal rate, irregularly irregular rhythm; no murmur Abdomen-soft, nondistended, nontender Extremities-mild bipedal edema, no erythema/warmth/calf tenderness Neuro- alert, oriented x 2; no gross focal neurologic deficits noted Skin- warm & dry Laboratory Results: Last 24 Hours Test 01/21/18 06:12 Prothrombin Time 49.7 SECONDS Prothromb Time International Ratio 4.9 Sodium Level 137 mmol/L Potassium Level 4.2 mmol/L Chloride Level 99 mmol/L Carbon Dioxide Level 33 mmol/L Anion Gap 5.0 mmol/L Blood Urea Nitrogen 11 mg/dl Creatinine 0.83 mg/dl Est Creatinine Clear Calc Drug Dose 58.9 ml/min Estimated GFR () 74.5 Estimated GFR (Non- 64.3 BUN/Creatinine Ratio 13.8 Random Glucose 95 mg/dl Calcium Level 9.0 mg/dl Assessment & Plan ACUTE ON CHRONIC HYPOXEMIC RESPIRATORY FAILURE, Resolved [place] to be secondary to left lower lobe pneumonia, has completed antibiotic therapy Remains Stable on room air No cough, shortness of breath CONFUSION /METABOLIC ENCEPHALOPATHY : Resolved Has dementia Appears to be at baseline CHRONIC DIASTOLIC HEART FAILURE : Remains Euvolemic On Lasix 20 mg p.o. every other day Continue to monitor CHRONIC A FIB : Rate controlled with Diltiazem and Toprol. On Eliquis now transitioned to Coumadin Has received Coumadin 5 mg p.o. 3 days consecutively INR still at 4.9 No signs of bleeding Hold Coumadin dose today Check INR tomorrow LEFT KNEE PAIN Status post injection Denies pain HYPOTHYROIDISM : Continue levothyroxine SEVERE AMBULATORY DYSFUNCTION Continue PT OT evaluation Plan to transition to intermediate facility when accepted Full Code DVT PROPHYLAXIS INR 4.9 Coumadin and hold DISPOSITION Plan to transition to intermediate facility when accepted Patient has no questions when asked Current Inpatient Medications: Current Inpatient Medications Medications (Trade) Dose Ordered Sig/Mak Route Start Time Stop Time Status Last Admin Dose Admin Promethazine HCl 12.5 mg/Sodium Chloride 50.5 ml @ 204 mls/hr Q6H PRN IV 12/15/17 17:15 02/13/18 17:13 Atorvastatin Calcium (Lipitor Tab) 40 mg DAILY PO 12/16/17 09:00 02/14/18 08:58 01/20/18 08:28 40 MG Bisacodyl (Dulcolax Supp) 10 mg DAILY PRN [place] 12/15/17 18:00 02/13/18 17:58 Diltiazem HCl (TIAzac CAP) 120 mg DAILY PO 12/16/17 09:00 02/14/18 08:58 01/20/18 08:28 120 MG Latanoprost (Xalatan Oph Soln) 1 drops HS OPB 12/15/17 21:00 02/13/18 20:58 01/20/18 20:55 1 DROPS Levothyroxine Sodium (Synthroid Tab) 100 mcg DAILYBB PO 12/16/17 06:30 02/14/18 06:28 01/21/18 05:37 100 MCG Magnesium Hydroxide (Milk Of Magnesia Susp) 30 ml DAILY PRN PO 12/15/17 18:00 02/13/18 17:58 Oxybutynin Chloride (Ditropan-Xl Tab) 10 mg DAILY PO 12/16/17 09:00 02/14/18 08:58 01/20/18 08:28 10 MG Potassium Chloride (Klor-Con Tab) 20 meq DAILY PO 12/16/17 09:00 02/14/18 08:58 01/20/18 08:28 20 MEQ Sodium Biphosphate/ Sodium Phosphate (Fleet Enema) 118 ml DAILY PRN [place] 12/15/17 18:00 02/13/18 17:58 Tramadol HCl (Ultram Tab) 50 mg Q6H PRN PO 12/22/17 15:15 01/21/18 15:14 Acetaminophen (Tylenol Tab) 650 mg Q4H PRN PO 12/22/17 17:00 01/21/18 16:59 Miconazole Nitrate (Desenex Powder) 1 appln BID EXT 12/27/17 21:00 01/26/18 20:59 01/20/18 20:55 1 APPLN Olanzapine (Zyprexa Inj) 2.5 mg DAILY PRN IM 01/09/18 21:45 02/08/18 21:44 Furosemide (Lasix Tab) 20 mg Q2D@0900 PO 01/15/18 09:00 02/14/18 08:59 01/19/18 09:05 20 MG Warfarin Sodium (Coumadin Tab) 5 mg DAILY@16 PO 01/16/18 16:00 02/14/18 15:59 Future Hold 01/18/18 15:30 5 MG Ipratropium [place] (Atrovent 0.02% 0.5MG/2.5ML Neb) 0.5 mg Q4H PRN INH 01/17/18 16:00 02/16/18 15:59 Levalbuterol (Xopenex 0.63 Mg/ 3 Ml Neb) 0.63 mg Q4H PRN INH 01/17/18 16:00 02/16/18 15:59 01/17/18 16:03 0.63 MG
[2018-01-21] MEDS ORDERED: METOPROLOL SUCC 50MG EXT REL TAB PO ONE (09:05)
[2018-01-21] MEDS: MICONAZOLE NITRATE POWDER 43 GM EXT SCH ×2 (10:07→21:31)
[2018-01-21] MEDS: OXYBUTYNIN CHLORIDE 5 MG TABCR PO SCH (10:07)
[2018-01-21] MEDS: ATORVASTATIN 40 MG TAB PO SCH (10:08)
[2018-01-21] MEDS: DILTIAZEM HCL 120 MG EXT REL CAP PO SCH (10:08)
[2018-01-21] MEDS: FUROSEMIDE 20 MG TAB PO SCH (10:08)
[2018-01-21] MEDS: POTASSIUM CHLORIDE 20 MEQ TABCR PO SCH (10:08)
[2018-01-21] MEDS: LEVALBUTEROL 0.63MG/3 ML NEB INH PRN (16:38)
[2018-01-21] MEDS: IPRATROPIUM BROMIDE NEB SOLN 0.02% 2.5 ML VIAL INH PRN (16:38)
[2018-01-21] MEDS: LATANOPROST 0.005% OP SOLN 2.5 ML BTL OPB SCH (21:30)
[2018-01-22] MEDS: LEVOTHYROXINE 100 MCG TAB PO SCH (05:44)
[2018-01-22 06:36] LABS: INR 3.5 (0.9-1.1)
[2018-01-22 07:03] LABS: CALCIUM 8.9 mg/dl (8.5-10.1); CREATININE 0.89 mg/dl (0.60-1.20); POTASSIUM 4.2 mmol/L (3.5-5.1)
[2018-01-22 07:35] VITALS: BP 145/85; PULSE 80; TEMP 36.6; O2SAT 92
--- NOTE | 2018-01-22 08:34 | Progress Note ---
Medicine Progress Note Date & Time of Visit: Jan 22, 2018 at 08:29. Subjective seen with BENJI Bravo at the bedside throughout whole encounter asked permission to be evaluated and the patient agreed states she feels good overall denies shortness of breath, chest pain, dizziness no pain denies other symptoms Objective Last 8 Hrs Date Time Temp Pulse Resp B/P (MAP) Pulse Ox O2 Delivery O2 Flow Rate FiO2 01/22/18 07:35 36.6 80 16 145/85 (105) 92 Room Air Physical Exam: General-oriented 3, speaking in sentences, no accessory muscle use Eyes- anicteric Neck- no JVD Lungs-mild rales on the left base, no wheezing, clear on the right Heart-normal rate, irregularly irregular rhythm; no murmurs Abdomen-soft, nondistended, nontender Extremities-mild bipedal edema, no erythema/warmth/calf tenderness Neuro- alert, oriented x 2; no gross focal neurologic deficits noted Skin- warm & dry Laboratory Results: Last 24 Hours Test 01/22/18 05:49 Prothrombin Time 36.2 SECONDS Prothromb Time International Ratio 3.5 Sodium Level 136 mmol/L Potassium Level 4.2 mmol/L Chloride Level 100 mmol/L Carbon Dioxide Level 30 mmol/L Anion Gap 6.0 mmol/L Blood Urea Nitrogen 12 mg/dl Creatinine 0.89 mg/dl Est Creatinine Clear Calc Drug Dose 54.9 ml/min Estimated GFR () 68.5 Estimated GFR (Non- 59.1 BUN/Creatinine Ratio 13.9 Random Glucose 95 mg/dl Calcium Level 8.9 mg/dl Assessment & Plan ACUTE ON CHRONIC HYPOXEMIC RESPIRATORY FAILURE, Resolved [place] to be secondary to left lower lobe pneumonia, has completed antibiotic therapy continues to be stable , at room air No cough, shortness of breath CONFUSION /METABOLIC ENCEPHALOPATHY : Resolved Has dementia Appears to be at baseline CHRONIC DIASTOLIC HEART FAILURE : Euvolemic On Lasix 20 mg p.o. every other day Continue to monitor CHRONIC A FIB : Rate controlled with Diltiazem and Toprol. On Eliquis now transitioned to Coumadin Has received Coumadin 5 mg p.o. 3 days consecutively INR down from 4.9 to 3.5 No signs of bleeding Hold Coumadin dose today Check INR tomorrow and dose coumadin accordingly will need 3mg of Coumadin with close INR checks LEFT KNEE PAIN Status post injection Denies pain HYPOTHYROIDISM : Continue levothyroxine SEVERE AMBULATORY DYSFUNCTION Continue PT OT evaluation Plan to transition to senior care facility when accepted Full Code DVT PROPHYLAXIS INR 3.5 Coumadin on hold DISPOSITION Plan to transition to senior care facility when accepted Patient has no questions when asked Current Inpatient Medications: Current Inpatient Medications Medications (Trade) Dose Ordered Sig/Mak Route Start Time Stop Time Status Last Admin Dose Admin Promethazine HCl 12.5 mg/Sodium Chloride 50.5 ml @ 204 mls/hr Q6H PRN IV 12/15/17 17:15 02/13/18 17:13 Atorvastatin Calcium (Lipitor Tab) 40 mg DAILY PO 12/16/17 09:00 02/14/18 08:58 01/21/18 10:08 40 MG Bisacodyl (Dulcolax Supp) 10 mg DAILY PRN [place] 12/15/17 18:00 02/13/18 17:58 Diltiazem HCl (TIAzac CAP) 120 mg DAILY PO 12/16/17 09:00 02/14/18 08:58 01/21/18 10:08 120 MG Latanoprost (Xalatan Oph Soln) 1 drops HS OPB 12/15/17 21:00 02/13/18 20:58 01/21/18 21:30 1 DROPS Levothyroxine Sodium (Synthroid Tab) 100 mcg DAILYBB PO 12/16/17 06:30 02/14/18 06:28 01/22/18 05:44 100 MCG Magnesium Hydroxide (Milk Of Magnesia Susp) 30 ml DAILY PRN PO 12/15/17 18:00 02/13/18 17:58 Oxybutynin Chloride (Ditropan-Xl Tab) 10 mg DAILY PO 12/16/17 09:00 02/14/18 08:58 01/21/18 10:07 10 MG Potassium Chloride (Klor-Con Tab) 20 meq DAILY PO 12/16/17 09:00 02/14/18 08:58 01/21/18 10:08 20 MEQ Sodium Biphosphate/ Sodium Phosphate (Fleet Enema) 118 ml DAILY PRN [place] 12/15/17 18:00 02/13/18 17:58 Miconazole Nitrate (Desenex Powder) 1 appln BID EXT 12/27/17 21:00 01/26/18 20:59 01/21/18 21:31 1 APPLN Olanzapine (Zyprexa Inj) 2.5 mg DAILY PRN IM 01/09/18 21:45 02/08/18 21:44 Furosemide (Lasix Tab) 20 mg Q2D@0900 PO 01/15/18 09:00 02/14/18 08:59 01/21/18 10:08 20 MG Warfarin Sodium (Coumadin Tab) 5 mg DAILY@16 PO 01/16/18 16:00 02/14/18 15:59 Future Hold 01/18/18 15:30 5 MG Ipratropium [place] (Atrovent 0.02% 0.5MG/2.5ML Neb) 0.5 mg Q4H PRN INH 01/17/18 16:00 02/16/18 15:59 01/21/18 16:38 0.5 MG Levalbuterol (Xopenex 0.63 Mg/ 3 Ml Neb) 0.63 mg Q4H PRN INH 01/17/18 16:00 02/16/18 15:59 01/21/18 16:38 0.63 MG Metoprolol Succinate (Toprol Xl Tab) 50 mg QAM PO 01/22/18 09:00 02/21/18 08:59
[2018-01-22] MEDS: MICONAZOLE NITRATE POWDER 43 GM EXT SCH ×2 (08:52→20:50)
[2018-01-22] MEDS: DILTIAZEM HCL 120 MG EXT REL CAP PO SCH (08:53)
[2018-01-22] MEDS: POTASSIUM CHLORIDE 20 MEQ TABCR PO SCH (08:53)
[2018-01-22] MEDS: ATORVASTATIN 40 MG TAB PO SCH (08:53)
[2018-01-22] MEDS: OXYBUTYNIN CHLORIDE 5 MG TABCR PO SCH (08:53)
[2018-01-22] MEDS: METOPROLOL SUCC 50MG EXT REL TAB PO SCH (08:57)
[2018-01-22 16:09] VITALS: BP 114/61; PULSE 77; TEMP 37.1; O2SAT 92
[2018-01-22] MEDS: LATANOPROST 0.005% OP SOLN 2.5 ML BTL OPB SCH (20:50)
[2018-01-22 23:44] VITALS: BP 156/81; PULSE 74; TEMP 36.5; O2SAT 90
[2018-01-23] MEDS: LEVOTHYROXINE 100 MCG TAB PO SCH (06:23)
[2018-01-23 08:01] LABS: INR 2.9 (0.9-1.1)
[2018-01-23] MEDS: MICONAZOLE NITRATE POWDER 43 GM EXT SCH ×2 (08:48→21:10)
[2018-01-23] MEDS: POTASSIUM CHLORIDE 20 MEQ TABCR PO SCH (08:48)
[2018-01-23] MEDS: OXYBUTYNIN CHLORIDE 5 MG TABCR PO SCH (08:48)
[2018-01-23] MEDS: METOPROLOL SUCC 50MG EXT REL TAB PO SCH (08:48)
[2018-01-23] MEDS: DILTIAZEM HCL 120 MG EXT REL CAP PO SCH (08:48)
[2018-01-23] MEDS: ATORVASTATIN 40 MG TAB PO SCH (08:48)
[2018-01-23] MEDS: FUROSEMIDE 20 MG TAB PO SCH (08:49)
--- NOTE | 2018-01-23 09:10 | Progress Note ---
Medicine Progress Note Date & Time of Visit: Jan 23, 2018 at 09:06. Subjective patient seen with RN at bedside throughout whole encounter asked for permission to evaluate her and patient has agreed states she feels fine denies shortness of breath,chest pain, dizziness, palpitations denies pain denies other symptoms Objective Last 8 Hrs Date Time Temp Pulse Resp B/P (MAP) Pulse Ox O2 Delivery O2 Flow Rate FiO2 01/23/18 07:25 Room Air 01/23/18 03:25 Room Air Physical Exam: General-oriented 3, speaking in sentences, no accessory muscle use Eyes- anicteric Neck- no JVD Lungs-mild rales on the left base, very faint wheeze- b/l, but with good air entry Heart-normal rate, irregularly irregular rhythm; no murmurs Abdomen-soft, nondistended, nontender Extremities-mild bipedal edema, no erythema/warmth/calf tenderness Neuro- alert, oriented x 2; no gross focal neurologic deficits noted Skin- warm & dry Laboratory Results: Last 24 Hours Test 01/23/18 07:34 Prothrombin Time 29.8 SECONDS Prothromb Time International Ratio 2.9 Assessment & Plan ACUTE ON CHRONIC HYPOXEMIC RESPIRATORY FAILURE, Resolved [place] to be secondary to left lower lobe pneumonia, has completed antibiotic therapy remains on room air No cough, shortness of breath CONFUSION /METABOLIC ENCEPHALOPATHY : Resolved Has dementia Appears to be at baseline CHRONIC DIASTOLIC HEART FAILURE : (+) very faint wheeze bilaterally On Lasix 20 mg p.o. every other day-> change to daily and monitor volume status and crea closely (patient's crea increased in the past with Lasix) CHRONIC A FIB : Rate controlled with Diltiazem and Toprol. On Eliquis now transitioned to Coumadin per 's request Has received Coumadin 5 mg p.o. 3 days consecutively INR down from 4.9 to 3.5--> 2.9 No signs of bleeding Hold Coumadin dose today and check INR tomorrow to get a better sense of how much Coumadin patient can tolerate Check INR tomorrow and dose coumadin accordingly may need 3mg of Coumadin with close INR checks LEFT KNEE PAIN Status post injection Denies pain HYPOTHYROIDISM : Continue levothyroxine SEVERE AMBULATORY DYSFUNCTION Continue PT OT evaluation Plan to transition to correction facility when accepted Full Code DVT PROPHYLAXIS INR 2.9 Coumadin on hold DISPOSITION Plan to transition to correction facility when accepted Patient has no questions when asked Current Inpatient Medications: Current Inpatient Medications Medications (Trade) Dose Ordered Sig/Mak Route Start Time Stop Time Status Last Admin Dose Admin Promethazine HCl 12.5 mg/Sodium Chloride 50.5 ml @ 204 mls/hr Q6H PRN IV 12/15/17 17:15 02/13/18 17:13 Atorvastatin Calcium (Lipitor Tab) 40 mg DAILY PO 12/16/17 09:00 02/14/18 08:58 01/23/18 08:48 40 MG Bisacodyl (Dulcolax Supp) 10 mg DAILY PRN [place] 12/15/17 18:00 02/13/18 17:58 Diltiazem HCl (TIAzac CAP) 120 mg DAILY PO 12/16/17 09:00 02/14/18 08:58 01/23/18 08:48 120 MG Latanoprost (Xalatan Oph Soln) 1 drops HS OPB 12/15/17 21:00 02/13/18 20:58 01/22/18 20:50 1 DROPS Levothyroxine Sodium (Synthroid Tab) 100 mcg DAILYBB PO 12/16/17 06:30 02/14/18 06:28 01/23/18 06:23 100 MCG Magnesium Hydroxide (Milk Of Magnesia Susp) 30 ml DAILY PRN PO 12/15/17 18:00 02/13/18 17:58 Oxybutynin Chloride (Ditropan-Xl Tab) 10 mg DAILY PO 12/16/17 09:00 02/14/18 08:58 01/23/18 08:48 10 MG Potassium Chloride (Klor-Con Tab) 20 meq DAILY PO 12/16/17 09:00 02/14/18 08:58 01/23/18 08:48 20 MEQ Sodium Biphosphate/ Sodium Phosphate (Fleet Enema) 118 ml DAILY PRN [place] 12/15/17 18:00 02/13/18 17:58 Miconazole Nitrate (Desenex Powder) 1 appln BID EXT 12/27/17 21:00 01/26/18 20:59 01/23/18 08:48 1 APPLN Olanzapine (Zyprexa Inj) 2.5 mg DAILY PRN IM 01/09/18 21:45 02/08/18 21:44 Furosemide (Lasix Tab) 20 mg Q2D@0900 PO 01/15/18 09:00 02/14/18 08:59 01/23/18 08:49 20 MG Warfarin Sodium (Coumadin Tab) 5 mg DAILY@16 PO 01/16/18 16:00 02/14/18 15:59 Future Hold 01/18/18 15:30 5 MG Ipratropium [place] (Atrovent 0.02% 0.5MG/2.5ML Neb) 0.5 mg Q4H PRN INH 01/17/18 16:00 02/16/18 15:59 01/21/18 16:38 0.5 MG Levalbuterol (Xopenex 0.63 Mg/ 3 Ml Neb) 0.63 mg Q4H PRN INH 01/17/18 16:00 02/16/18 15:59 01/21/18 16:38 0.63 MG Metoprolol Succinate (Toprol Xl Tab) 50 mg QAM PO 01/22/18 09:00 02/21/18 08:59 01/23/18 08:48 50 MG
[2018-01-23 15:00] VITALS: BP 100/71; PULSE 65; TEMP 36.5; O2SAT 92
[2018-01-23] MEDS: LATANOPROST 0.005% OP SOLN 2.5 ML BTL OPB SCH (21:10)
[2018-01-23] MEDS: IPRATROPIUM BROMIDE NEB SOLN 0.02% 2.5 ML VIAL INH PRN (21:19)
[2018-01-23] MEDS: LEVALBUTEROL 0.63MG/3 ML NEB INH PRN (21:19)
[2018-01-23 21:20] VITALS: PULSE 75; O2SAT 92
[2018-01-23 23:31] VITALS: BP 121/75; PULSE 70; TEMP 36.3; O2SAT 91
[2018-01-24] MEDS: LEVOTHYROXINE 100 MCG TAB PO SCH (06:00)
[2018-01-24 07:11] VITALS: BP 126/76; PULSE 73; TEMP 36.7; O2SAT 94
[2018-01-24] MEDS ORDERED: FUROSEMIDE 20 MG TAB PO SCH (09:00)
[2018-01-24 09:06] LABS: CREATININE 0.91 mg/dl (0.60-1.20); POTASSIUM 4.4 mmol/L (3.5-5.1)
--- NOTE | 2018-01-24 09:24 | Progress Note ---
Medicine Progress Note Date & Time of Visit: Jan 24, 2018 at 09:24. Subjective seen with BENJI Pantoja at bedside throughout encounter asked permission and patient allowed me to evaluate her states she feels fine denies shortness of breath, chest pain, nausea denies leg pain denies other symptoms Objective Last 8 Hrs Date Time Temp Pulse Resp B/P (MAP) Pulse Ox O2 Delivery O2 Flow Rate FiO2 01/24/18 07:11 36.7 73 19 126/76 (93) 94 Room Air Physical Exam: General-oriented 3, speaking in sentences, no accessory muscle use Eyes- anicteric Neck- no JVD Lungs-mild rales left base, clear on the right , no wheezing Heart-normal rate, irregularly irregular rhythm; no murmurs Abdomen-soft, nondistended, nontender Extremities- mild/moderate bilateral lower leg edema, no erythema/warmth/calf tenderness Neuro- alert, oriented x 2; no gross focal neurologic deficits noted Skin- warm & dry Laboratory Results: Last 24 Hours Test 01/24/18 08:28 Prothrombin Time 31.0 SECONDS Prothromb Time International Ratio 3.0 Sodium Level 136 mmol/L Potassium Level 4.4 mmol/L Chloride Level 99 mmol/L Carbon Dioxide Level 33 mmol/L Anion Gap 4.0 mmol/L Blood Urea Nitrogen 12 mg/dl Creatinine 0.91 mg/dl Est Creatinine Clear Calc Drug Dose 53.7 ml/min Estimated GFR () 66.7 Estimated GFR (Non- 57.5 BUN/Creatinine Ratio 13.4 Random Glucose 95 mg/dl Calcium Level 9.0 mg/dl Assessment & Plan ACUTE ON CHRONIC HYPOXEMIC RESPIRATORY FAILURE, Resolved [place] to be secondary to left lower lobe pneumonia, has completed antibiotic therapy remains on room air No cough, shortness of breath CONFUSION /METABOLIC ENCEPHALOPATHY : Resolved Has dementia Appears to be at baseline CHRONIC DIASTOLIC HEART FAILURE : (+) bilateral lower leg edema On Lasix 20 mg p.o. every other day-> 1 dose of Lasix 40mg po today--> monitor volume status and crea (patient's crea increased in the past with Lasix) CHRONIC A FIB : Rate controlled with Diltiazem and Toprol. On Eliquis now transitioned to Coumadin per 's request Has received Coumadin 5 mg p.o. 3 days consecutively INR down from 4.9 to 3.5--> 3.0 No signs of bleeding Hold Coumadin dose today and check INR tomorrow dose coumadin accordingly may need 3mg of Coumadin with close INR checks LEFT KNEE PAIN Status post injection Denies pain HYPOTHYROIDISM : Continue levothyroxine SEVERE AMBULATORY DYSFUNCTION Continue PT OT evaluation Plan to transition to half-way facility when accepted Full Code DVT PROPHYLAXIS INR 3.0 Coumadin on hold DISPOSITION Plan to transition to half-way facility when accepted Patient has no questions when asked Current Inpatient Medications: Current Inpatient Medications Medications (Trade) Dose Ordered Sig/Mak Route Start Time Stop Time Status Last Admin Dose Admin Promethazine HCl 12.5 mg/Sodium Chloride 50.5 ml @ 204 mls/hr Q6H PRN IV 12/15/17 17:15 02/13/18 17:13 Atorvastatin Calcium (Lipitor Tab) 40 mg DAILY PO 12/16/17 09:00 02/14/18 08:58 01/23/18 08:48 40 MG Bisacodyl (Dulcolax Supp) 10 mg DAILY PRN [place] 12/15/17 18:00 02/13/18 17:58 Diltiazem HCl (TIAzac CAP) 120 mg DAILY PO 12/16/17 09:00 02/14/18 08:58 01/23/18 08:48 120 MG Latanoprost (Xalatan Oph Soln) 1 drops HS OPB 12/15/17 21:00 02/13/18 20:58 01/23/18 21:10 1 DROPS Levothyroxine Sodium (Synthroid Tab) 100 mcg DAILYBB PO 12/16/17 06:30 02/14/18 06:28 01/24/18 06:00 100 MCG Magnesium Hydroxide (Milk Of Magnesia Susp) 30 ml DAILY PRN PO 12/15/17 18:00 02/13/18 17:58 Oxybutynin Chloride (Ditropan-Xl Tab) 10 mg DAILY PO 12/16/17 09:00 02/14/18 08:58 01/23/18 08:48 10 MG Potassium Chloride (Klor-Con Tab) 20 meq DAILY PO 12/16/17 09:00 02/14/18 08:58 01/23/18 08:48 20 MEQ Sodium Biphosphate/ Sodium Phosphate (Fleet Enema) 118 ml DAILY PRN [place] 12/15/17 18:00 02/13/18 17:58 Miconazole Nitrate (Desenex Powder) 1 appln BID EXT 12/27/17 21:00 01/26/18 20:59 01/23/18 21:10 1 APPLN Olanzapine (Zyprexa Inj) 2.5 mg DAILY PRN IM 01/09/18 21:45 02/08/18 21:44 Warfarin Sodium (Coumadin Tab) 5 mg DAILY@16 PO 01/16/18 16:00 02/14/18 15:59 Future Hold 01/18/18 15:30 5 MG Ipratropium [place] (Atrovent 0.02% 0.5MG/2.5ML Neb) 0.5 mg Q4H PRN INH 01/17/18 16:00 02/16/18 15:59 01/23/18 21:19 0.5 MG Levalbuterol (Xopenex 0.63 Mg/ 3 Ml Neb) 0.63 mg Q4H PRN INH 01/17/18 16:00 02/16/18 15:59 01/23/18 21:19 0.63 MG Metoprolol Succinate (Toprol Xl Tab) 50 mg QAM PO 01/22/18 09:00 02/21/18 08:59 01/23/18 08:48 50 MG Furosemide (Lasix Tab) 20 mg DAILY PO 01/24/18 09:00 02/14/18 08:59
[2018-01-24] MEDS ORDERED: FUROSEMIDE INJ 20 MG in SYRINGE 0 ML IV ONE (09:30)
[2018-01-24] MEDS: MICONAZOLE NITRATE POWDER 43 GM EXT SCH ×2 (10:38→19:57)
[2018-01-24] MEDS: OXYBUTYNIN CHLORIDE 5 MG TABCR PO SCH (10:39)
[2018-01-24] MEDS: POTASSIUM CHLORIDE 20 MEQ TABCR PO SCH (10:39)
[2018-01-24] MEDS: DILTIAZEM HCL 120 MG EXT REL CAP PO SCH (10:40)
[2018-01-24] MEDS: METOPROLOL SUCC 50MG EXT REL TAB PO SCH (10:40)
[2018-01-24] MEDS: ATORVASTATIN 40 MG TAB PO SCH (10:40)
[2018-01-24] MEDS ORDERED: FUROSEMIDE 40 MG TAB PO ONE (11:15)
[2018-01-24 15:20] VITALS: O2SAT 92
[2018-01-24 15:37] VITALS: BP 114/67; PULSE 81; TEMP 36.5; O2SAT 92
[2018-01-24] MEDS: IPRATROPIUM BROMIDE NEB SOLN 0.02% 2.5 ML VIAL INH PRN (20:09)
[2018-01-24] MEDS: LEVALBUTEROL 0.63MG/3 ML NEB INH PRN (20:09)
[2018-01-24 20:10] VITALS: PULSE 79; O2SAT 90
[2018-01-24] MEDS: LATANOPROST 0.005% OP SOLN 2.5 ML BTL OPB SCH (22:21)
[2018-01-24 23:23] VITALS: BP 107/65; PULSE 67; TEMP 36.9; O2SAT 93
[2018-01-25] MEDS: LEVOTHYROXINE 100 MCG TAB PO SCH (05:53)
[2018-01-25 06:40] LABS: INR 2.2 (0.9-1.1)
[2018-01-25 06:51] VITALS: BP 116/68; PULSE 73; TEMP 36.6; O2SAT 91
[2018-01-25 07:05] LABS: CREATININE 0.93 mg/dl (0.60-1.20)
[2018-01-25] MEDS: DILTIAZEM HCL 120 MG EXT REL CAP PO SCH (09:19)
[2018-01-25] MEDS: OXYBUTYNIN CHLORIDE 5 MG TABCR PO SCH (09:19)
[2018-01-25] MEDS: METOPROLOL SUCC 50MG EXT REL TAB PO SCH (09:20)
[2018-01-25] MEDS: POTASSIUM CHLORIDE 20 MEQ TABCR PO SCH (09:20)
[2018-01-25] MEDS: ATORVASTATIN 40 MG TAB PO SCH (09:20)
[2018-01-25] MEDS ORDERED: FUROSEMIDE 40 MG TAB PO ONE (12:00)
--- NOTE | 2018-01-25 12:06 | Progress Note ---
Subjective Date of Service: Jan 25, 2018. Subjective Pt evaluation today including: conversation w/ patient, physical exam, lab review, review of studies, review of inpatient medication list Saw/examined the patient in room 387 She's doing well, seated in a chair, denies any problems/issues does seem to be working to breath Problem List Medical Problems: (1) Altered mental status Status: Acute (2) Atrial fibrillation Status: Acute (3) Change in mental status Status: Acute (4) CO2 retention Status: Acute (5) Exacerbation of asthma Status: Acute (6) Respiratory distress Status: Acute (7) UTI (urinary tract infection) Status: Acute Review of Systems Constitutional: No fever, No chills Respiratory: No cough, No sputum, No wheezing, No shortness of breath, No dyspnea on exertion, No dyspnea at rest Cardiac: No chest pain Medications Current Inpatient Medications Medications (Trade) Dose Ordered Sig/Mak Route Start Time Stop Time Status Last Admin Dose Admin Promethazine HCl 12.5 mg/Sodium Chloride 50.5 ml @ 204 mls/hr Q6H PRN IV 12/15/17 17:15 02/13/18 17:13 Atorvastatin Calcium (Lipitor Tab) 40 mg DAILY PO 12/16/17 09:00 02/14/18 08:58 01/25/18 09:20 40 MG Bisacodyl (Dulcolax Supp) 10 mg DAILY PRN [place] 12/15/17 18:00 02/13/18 17:58 Diltiazem HCl (TIAzac CAP) 120 mg DAILY PO 12/16/17 09:00 02/14/18 08:58 01/25/18 09:19 120 MG Latanoprost (Xalatan Oph Soln) 1 drops HS OPB 12/15/17 21:00 02/13/18 20:58 01/24/18 22:21 1 DROPS Levothyroxine Sodium (Synthroid Tab) 100 mcg DAILYBB PO 12/16/17 06:30 02/14/18 06:28 01/25/18 05:53 100 MCG Magnesium Hydroxide (Milk Of Magnesia Susp) 30 ml DAILY PRN PO 12/15/17 18:00 02/13/18 17:58 Oxybutynin Chloride (Ditropan-Xl Tab) 10 mg DAILY PO 12/16/17 09:00 02/14/18 08:58 01/25/18 09:19 10 MG Potassium Chloride (Klor-Con Tab) 20 meq DAILY PO 12/16/17 09:00 02/14/18 08:58 01/25/18 09:20 20 MEQ Sodium Biphosphate/ Sodium Phosphate (Fleet Enema) 118 ml DAILY PRN [place] 12/15/17 18:00 02/13/18 17:58 Miconazole Nitrate (Desenex Powder) 1 appln BID EXT 12/27/17 21:00 01/26/18 20:59 01/24/18 19:57 1 APPLN Olanzapine (Zyprexa Inj) 2.5 mg DAILY PRN IM 01/09/18 21:45 02/08/18 21:44 Warfarin Sodium (Coumadin Tab) 5 mg DAILY@16 PO 01/16/18 16:00 02/14/18 15:59 Future Hold 01/18/18 15:30 5 MG Ipratropium [place] (Atrovent 0.02% 0.5MG/2.5ML Neb) 0.5 mg Q4H PRN INH 01/17/18 16:00 02/16/18 15:59 01/24/18 20:09 0.5 MG Levalbuterol (Xopenex 0.63 Mg/ 3 Ml Neb) 0.63 mg Q4H PRN INH 01/17/18 16:00 02/16/18 15:59 01/24/18 20:09 0.63 MG Metoprolol Succinate (Toprol Xl Tab) 50 mg QAM PO 01/22/18 09:00 02/21/18 08:59 01/25/18 09:20 50 MG Objective Vital Signs Date Time Temp Pulse Resp B/P (MAP) Pulse Ox O2 Delivery O2 Flow Rate FiO2 01/25/18 06:51 36.6 73 19 116/68 (84) 91 Room Air 01/24/18 23:23 36.9 67 16 107/65 (79) 93 Room Air 01/24/18 20:10 79 18 90 Room Air 01/24/18 19:30 Room Air 01/24/18 15:37 36.5 81 16 114/67 (83) 92 Room Air 01/24/18 15:20 92 Room Air Physical Exam General Appearance: no apparent distress, + obese, + pertinent finding ( underlying dementia) Respiratory/Chest: lungs clear, normal breath sounds, no respiratory distress, + accessory muscle use Cardiovascular: no murmur, + irregularly irregular Extremities: + swelling, + pertinent finding Laboratory Results Last 24 Hours Test 01/25/18 05:43 Prothrombin Time 23.1 SECONDS Prothromb Time International Ratio 2.2 Sodium Level 136 mmol/L Potassium Level 4.0 mmol/L Chloride Level 99 mmol/L Carbon Dioxide Level 32 mmol/L Anion Gap 5.0 mmol/L Blood Urea Nitrogen 13 mg/dl Creatinine 0.93 mg/dl Est Creatinine Clear Calc Drug Dose 52.5 ml/min Estimated GFR () 65.0 Estimated GFR (Non- 56.0 BUN/Creatinine Ratio 13.6 Random Glucose 93 mg/dl Calcium Level 9.0 mg/dl Assessment and Plan Acute on Chronic Hypoxic Respiratory Failure - Resolved possibly secondary to pneumonia - completed antibiotic course Metabolic Encephalopathy - resolved - underlying dementia, appears to be at baseline Chronic Diastolic HF - will give 40mg of Lasix (01/25), will likely need 20mg of Lasix daily Chronic A. Fib - continue Diltiazem and Toprol - patient is now on Coumadin, INR is 2.2 - will give Coumadin 3mg and recheck INR - has had supratherapeutic INR with 5mg of Coumadin L Knee pain - resolved Hypothyroidism - continue Synthroid Ambulatory Dysfunction - PT/OT - needs SNF discharge DVT ppx - Coumadin FULL CODE
[2018-01-25] MEDS: MICONAZOLE NITRATE POWDER 43 GM EXT SCH ×2 (13:49→21:07)
[2018-01-25 15:30] VITALS: BP 126/94; PULSE 68; TEMP 36.5; O2SAT 91
[2018-01-25] MEDS: WARFARIN SOD 3 MG TAB PO SCH (15:45)
[2018-01-25 19:14] VITALS: PULSE 83; O2SAT 83; O2SAT 88
[2018-01-25] MEDS: LEVALBUTEROL 0.63MG/3 ML NEB INH PRN (19:14)
[2018-01-25] MEDS: IPRATROPIUM BROMIDE NEB SOLN 0.02% 2.5 ML VIAL INH PRN (19:14)
[2018-01-25] MEDS: LATANOPROST 0.005% OP SOLN 2.5 ML BTL OPB SCH (21:07)
[2018-01-26 00:18] VITALS: BP 149/80; PULSE 76; TEMP 36.7; O2SAT 93
[2018-01-26] MEDS: LEVOTHYROXINE 100 MCG TAB PO SCH (06:09)
[2018-01-26 06:45] LABS: INR 2.1 (0.9-1.1)
[2018-01-26 07:06] VITALS: BP 182/65; PULSE 88; TEMP 36.6; O2SAT 90
[2018-01-26 07:17] LABS: CALCIUM 9.1 mg/dl (8.5-10.1); CREATININE 0.99 mg/dl (0.60-1.20); POTASSIUM 4.1 mmol/L (3.5-5.1)
[2018-01-26] MEDS: IPRATROPIUM BROMIDE NEB SOLN 0.02% 2.5 ML VIAL INH PRN (07:25)
[2018-01-26] MEDS: LEVALBUTEROL 0.63MG/3 ML NEB INH PRN (07:25)
[2018-01-26 07:29] VITALS: PULSE 76; O2SAT 91
[2018-01-26] MEDS: MICONAZOLE NITRATE POWDER 43 GM EXT SCH (09:19)
[2018-01-26] MEDS: OXYBUTYNIN CHLORIDE 5 MG TABCR PO SCH (09:20)
[2018-01-26] MEDS: POTASSIUM CHLORIDE 20 MEQ TABCR PO SCH (09:21)
[2018-01-26] MEDS: METOPROLOL SUCC 50MG EXT REL TAB PO SCH (09:21)
[2018-01-26] MEDS: DILTIAZEM HCL 120 MG EXT REL CAP PO SCH (09:21)
[2018-01-26] MEDS: ATORVASTATIN 40 MG TAB PO SCH (09:21)
--- NOTE | 2018-01-26 13:06 | Progress Note ---
Subjective Date of Service: Jan 26, 2018. Subjective Pt evaluation today including: conversation w/ patient, physical exam, lab review, review of studies, review of inpatient medication list Saw/examined the patient in room 387 No problems/issues to note today Underlying dementia Intermittent wheezing noted Problem List Medical Problems: (1) Altered mental status Status: Acute (2) Atrial fibrillation Status: Acute (3) Change in mental status Status: Acute (4) CO2 retention Status: Acute (5) Exacerbation of asthma Status: Acute (6) Respiratory distress Status: Acute (7) UTI (urinary tract infection) Status: Acute Review of Systems Cannot obtain due to patient's mental status Medications Current Inpatient Medications Medications (Trade) Dose Ordered Sig/Mak Route Start Time Stop Time Status Last Admin Dose Admin Promethazine HCl 12.5 mg/Sodium Chloride 50.5 ml @ 204 mls/hr Q6H PRN IV 12/15/17 17:15 02/13/18 17:13 Atorvastatin Calcium (Lipitor Tab) 40 mg DAILY PO 12/16/17 09:00 02/14/18 08:58 01/26/18 09:21 40 MG Bisacodyl (Dulcolax Supp) 10 mg DAILY PRN [place] 12/15/17 18:00 02/13/18 17:58 Diltiazem HCl (TIAzac CAP) 120 mg DAILY PO 12/16/17 09:00 02/14/18 08:58 01/26/18 09:21 120 MG Latanoprost (Xalatan Oph Soln) 1 drops HS OPB 12/15/17 21:00 02/13/18 20:58 01/25/18 21:07 1 DROPS Levothyroxine Sodium (Synthroid Tab) 100 mcg DAILYBB PO 12/16/17 06:30 02/14/18 06:28 01/26/18 06:09 100 MCG Magnesium Hydroxide (Milk Of Magnesia Susp) 30 ml DAILY PRN PO 12/15/17 18:00 02/13/18 17:58 Oxybutynin Chloride (Ditropan-Xl Tab) 10 mg DAILY PO 12/16/17 09:00 02/14/18 08:58 01/26/18 09:20 10 MG Potassium Chloride (Klor-Con Tab) 20 meq DAILY PO 12/16/17 09:00 02/14/18 08:58 01/26/18 09:21 20 MEQ Sodium Biphosphate/ Sodium Phosphate (Fleet Enema) 118 ml DAILY PRN [place] 12/15/17 18:00 02/13/18 17:58 Miconazole Nitrate (Desenex Powder) 1 appln BID EXT 12/27/17 21:00 01/26/18 20:59 01/26/18 09:19 1 APPLN Olanzapine (Zyprexa Inj) 2.5 mg DAILY PRN IM 01/09/18 21:45 02/08/18 21:44 Ipratropium [place] (Atrovent 0.02% 0.5MG/2.5ML Neb) 0.5 mg Q4H PRN INH 01/17/18 16:00 02/16/18 15:59 01/26/18 07:25 0.5 MG Levalbuterol (Xopenex 0.63 Mg/ 3 Ml Neb) 0.63 mg Q4H PRN INH 01/17/18 16:00 02/16/18 15:59 01/26/18 07:25 0.63 MG Metoprolol Succinate (Toprol Xl Tab) 50 mg QAM PO 01/22/18 09:00 02/21/18 08:59 01/26/18 09:21 50 MG Warfarin Sodium (Coumadin Tab) 3 mg DAILY@16 PO 01/25/18 16:00 02/24/18 15:59 01/25/18 15:45 3 MG Objective Vital Signs Date Time Temp Pulse Resp B/P (MAP) Pulse Ox O2 Delivery O2 Flow Rate FiO2 01/26/18 07:40 Nasal Cannula 2.0 01/26/18 07:29 76 18 91 Nasal Cannula 2.0 01/26/18 07:06 36.6 88 18 182/65 (104) 90 Room Air 01/26/18 00:18 36.7 76 18 149/80 (103) 93 Nasal Cannula 2.0 01/26/18 00:17 Nasal Cannula 2.0 01/25/18 19:30 Nasal Cannula 2.0 01/25/18 19:14 83 20 83 Room Air 01/25/18 15:30 36.5 68 16 126/94 (105) 91 Room Air Physical Exam General Appearance: no apparent distress, + obese, + pertinent finding ( underlying dementia) Respiratory/Chest: no respiratory distress, no accessory muscle use, + wheezing Cardiovascular: regular rate, rhythm, no edema, no murmur Laboratory Results Last 24 Hours Test 01/26/18 05:48 Prothrombin Time 22.1 SECONDS Prothromb Time International Ratio 2.1 Sodium Level 136 mmol/L Potassium Level 4.1 mmol/L Chloride Level 98 mmol/L Carbon Dioxide Level 32 mmol/L Anion Gap 6.0 mmol/L Blood Urea Nitrogen 12 mg/dl Creatinine 0.99 mg/dl Est Creatinine Clear Calc Drug Dose 49.4 ml/min Estimated GFR () 60.2 Estimated GFR (Non- 52.0 BUN/Creatinine Ratio 12.4 Random Glucose 93 mg/dl Calcium Level 9.1 mg/dl Assessment and Plan 01/26 - saw the patient today - INR is >2; continue Coumadin 3mg and monitor in AM - will give Lasix 20mg daily Acute on Chronic Hypoxic Respiratory Failure - Resolved possibly secondary to pneumonia - completed antibiotic course Metabolic Encephalopathy - resolved - underlying dementia, appears to be at baseline Chronic Diastolic HF - will give 40mg of Lasix (01/25), will likely need 20mg of Lasix daily Chronic A. Fib - continue Diltiazem and Toprol - patient is now on Coumadin, INR is 2.2 - will give Coumadin 3mg and recheck INR - has had supratherapeutic INR with 5mg of Coumadin L Knee pain - resolved Hypothyroidism - continue Synthroid Ambulatory Dysfunction - PT/OT - needs SNF discharge DVT ppx - Coumadin FULL CODE
[2018-01-26] MEDS: FUROSEMIDE 20 MG TAB PO ONE ×2 (13:44→15:35)
[2018-01-26] MEDS: WARFARIN SOD 3 MG TAB PO SCH (15:36)
[2018-01-26 15:38] VITALS: BP 131/70; PULSE 66; TEMP 36.7; O2SAT 91
[2018-01-26] MEDS: LATANOPROST 0.005% OP SOLN 2.5 ML BTL OPB SCH (21:29)
[2018-01-26 23:04] VITALS: BP 137/61; PULSE 66; TEMP 36.8; O2SAT 91
[2018-01-27] MEDS: LEVOTHYROXINE 100 MCG TAB PO SCH (05:49)
[2018-01-27 07:03] VITALS: BP 144/85; PULSE 69; TEMP 36.7; O2SAT 90
[2018-01-27] MEDS: OXYBUTYNIN CHLORIDE 5 MG TABCR PO SCH (08:53)
[2018-01-27] MEDS: DILTIAZEM HCL 120 MG EXT REL CAP PO SCH (08:54)
[2018-01-27] MEDS: FUROSEMIDE 20 MG TAB PO SCH (08:54)
[2018-01-27] MEDS: POTASSIUM CHLORIDE 20 MEQ TABCR PO SCH (08:54)
[2018-01-27] MEDS: ATORVASTATIN 40 MG TAB PO SCH (08:54)
[2018-01-27] MEDS: METOPROLOL SUCC 50MG EXT REL TAB PO SCH (08:55)
[2018-01-27 08:58] LABS: INR 3.3 (0.9-1.1)
--- NOTE | 2018-01-27 12:34 | Progress Note ---
Subjective Date of Service: Jan 27, 2018. Subjective Pt evaluation today including: conversation w/ patient, physical exam, lab review, review of studies, review of inpatient medication list Saw/examined the patient in room 387 No problems/issues today; denies shortness of breath/chest pain Problem List Medical Problems: (1) Altered mental status Status: Acute (2) Atrial fibrillation Status: Acute (3) Change in mental status Status: Acute (4) CO2 retention Status: Acute (5) Exacerbation of asthma Status: Acute (6) Respiratory distress Status: Acute (7) UTI (urinary tract infection) Status: Acute Review of Systems Respiratory: No shortness of breath Cardiac: No chest pain Medications Current Inpatient Medications Medications (Trade) Dose Ordered Sig/Mak Route Start Time Stop Time Status Last Admin Dose Admin Promethazine HCl 12.5 mg/Sodium Chloride 50.5 ml @ 204 mls/hr Q6H PRN IV 12/15/17 17:15 02/13/18 17:13 Atorvastatin Calcium (Lipitor Tab) 40 mg DAILY PO 12/16/17 09:00 02/14/18 08:58 01/27/18 08:54 40 MG Bisacodyl (Dulcolax Supp) 10 mg DAILY PRN [place] 12/15/17 18:00 02/13/18 17:58 Diltiazem HCl (TIAzac CAP) 120 mg DAILY PO 12/16/17 09:00 02/14/18 08:58 01/27/18 08:54 120 MG Latanoprost (Xalatan Oph Soln) 1 drops HS OPB 12/15/17 21:00 02/13/18 20:58 01/26/18 21:29 1 DROPS Levothyroxine Sodium (Synthroid Tab) 100 mcg DAILYBB PO 12/16/17 06:30 02/14/18 06:28 01/27/18 05:49 100 MCG Magnesium Hydroxide (Milk Of Magnesia Susp) 30 ml DAILY PRN PO 12/15/17 18:00 02/13/18 17:58 Oxybutynin Chloride (Ditropan-Xl Tab) 10 mg DAILY PO 12/16/17 09:00 02/14/18 08:58 01/27/18 08:53 10 MG Potassium Chloride (Klor-Con Tab) 20 meq DAILY PO 12/16/17 09:00 02/14/18 08:58 01/27/18 08:54 20 MEQ Sodium Biphosphate/ Sodium Phosphate (Fleet Enema) 118 ml DAILY PRN [place] 12/15/17 18:00 02/13/18 17:58 Olanzapine (Zyprexa Inj) 2.5 mg DAILY PRN IM 01/09/18 21:45 02/08/18 21:44 Ipratropium [place] (Atrovent 0.02% 0.5MG/2.5ML Neb) 0.5 mg Q4H PRN INH 01/17/18 16:00 02/16/18 15:59 01/26/18 07:25 0.5 MG Levalbuterol (Xopenex 0.63 Mg/ 3 Ml Neb) 0.63 mg Q4H PRN INH 01/17/18 16:00 02/16/18 15:59 01/26/18 07:25 0.63 MG Metoprolol Succinate (Toprol Xl Tab) 50 mg QAM PO 01/22/18 09:00 02/21/18 08:59 01/27/18 08:55 50 MG Warfarin Sodium (Coumadin Tab) 3 mg DAILY@16 PO 01/25/18 16:00 02/24/18 15:59 01/26/18 15:36 3 MG Furosemide (Lasix Tab) 20 mg QAM PO 01/27/18 09:00 02/26/18 08:59 01/27/18 08:54 20 MG Objective Vital Signs Date Time Temp Pulse Resp B/P (MAP) Pulse Ox O2 Delivery O2 Flow Rate FiO2 01/27/18 07:20 Room Air 01/27/18 07:03 36.7 69 22 144/85 (104) 90 Room Air 01/27/18 00:15 Room Air 01/26/18 23:04 36.8 66 18 137/61 (86) 91 Room Air 01/26/18 15:38 36.7 66 20 131/70 (90) 91 Room Air 01/26/18 15:35 Room Air Physical Exam General Appearance: + obese, + pertinent finding (pleasantly dementia) Respiratory/Chest: no respiratory distress, no accessory muscle use, + decreased breath sounds Cardiovascular: regular rate, rhythm Laboratory Results Last 24 Hours Test 01/27/18 08:38 Prothrombin Time 33.4 SECONDS Prothromb Time International Ratio 3.3 Assessment and Plan 01/27 - hold Coumadin again - will likely need 2mg of Coumadin instead of 3mg - Lasix 20mg daily for now - monitor K 01/26 - saw the patient today - INR is >2; continue Coumadin 3mg and monitor in AM - will give Lasix 20mg daily Acute on Chronic Hypoxic Respiratory Failure - Resolved possibly secondary to pneumonia - completed antibiotic course Metabolic Encephalopathy - resolved - underlying dementia, appears to be at baseline Chronic Diastolic HF - will give 40mg of Lasix (01/25), will likely need 20mg of Lasix daily Chronic A. Fib - continue Diltiazem and Toprol - patient is now on Coumadin, INR is 2.2 - will give Coumadin 3mg and recheck INR - has had supratherapeutic INR with 5mg of Coumadin L Knee pain - resolved Hypothyroidism - continue Synthroid Ambulatory Dysfunction - PT/OT - needs SNF discharge DVT ppx - Coumadin FULL CODE
[2018-01-27 16:03] VITALS: BP 137/69; PULSE 68; TEMP 36.6
[2018-01-27] MEDS: LATANOPROST 0.005% OP SOLN 2.5 ML BTL OPB SCH (22:20)
[2018-01-27 23:05] VITALS: BP 153/76; PULSE 90; TEMP 36.9; O2SAT 87
[2018-01-27 23:57] VITALS: O2SAT 94
[2018-01-28] MEDS: LEVOTHYROXINE 100 MCG TAB PO SCH (05:53)
[2018-01-28 07:01] LABS: INR 3.7 (0.9-1.1)
[2018-01-28 08:02] VITALS: BP 136/71; PULSE 76; TEMP 36.8; O2SAT 96
[2018-01-28] MEDS: ATORVASTATIN 40 MG TAB PO SCH (09:00)
[2018-01-28] MEDS: POTASSIUM CHLORIDE 20 MEQ TABCR PO SCH (09:00)
[2018-01-28] MEDS: DILTIAZEM HCL 120 MG EXT REL CAP PO SCH (09:00)
[2018-01-28] MEDS: OXYBUTYNIN CHLORIDE 5 MG TABCR PO SCH (09:00)
[2018-01-28] MEDS: FUROSEMIDE 20 MG TAB PO SCH (09:00)
[2018-01-28] MEDS: METOPROLOL SUCC 50MG EXT REL TAB PO SCH (09:00)
[2018-01-28] MEDS ORDERED: LEVALBUTEROL/IPRATROPIUM NEB INH ONE (13:15)
[2018-01-28] MEDS ORDERED: LEVALBUTEROL 0.63MG/3 ML NEB INH ONE (13:30)
[2018-01-28] MEDS ORDERED: IPRATROPIUM BROMIDE NEB SOLN 0.02% 2.5 ML VIAL INH ONE (13:30)
[2018-01-28 14:40] VITALS: PULSE 88; O2SAT 90
--- NOTE | 2018-01-28 14:49 | Progress Note ---
Subjective Date of Service: Jan 28, 2018. Subjective Pt evaluation today including: conversation w/ patient, physical exam, lab review, review of studies, review of inpatient medication list Saw/examined the patient in room 387 in the room with her - tells me he wants to take her home Patient feeling fine, good PO intake, no shortness of breath/chest pain Problem List Medical Problems: (1) Altered mental status Status: Acute (2) Atrial fibrillation Status: Acute (3) Change in mental status Status: Acute (4) CO2 retention Status: Acute (5) Exacerbation of asthma Status: Acute (6) Respiratory distress Status: Acute (7) UTI (urinary tract infection) Status: Acute Review of Systems Difficult to assess an accurate ROS due to patient's underlying dementia. Medications Current Inpatient Medications Medications (Trade) Dose Ordered Sig/Mak Route Start Time Stop Time Status Last Admin Dose Admin Promethazine HCl 12.5 mg/Sodium Chloride 50.5 ml @ 204 mls/hr Q6H PRN IV 12/15/17 17:15 02/13/18 17:13 Atorvastatin Calcium (Lipitor Tab) 40 mg DAILY PO 12/16/17 09:00 02/14/18 08:58 01/27/18 08:54 40 MG Bisacodyl (Dulcolax Supp) 10 mg DAILY PRN [place] 12/15/17 18:00 02/13/18 17:58 Diltiazem HCl (TIAzac CAP) 120 mg DAILY PO 12/16/17 09:00 02/14/18 08:58 01/27/18 08:54 120 MG Latanoprost (Xalatan Oph Soln) 1 drops HS OPB 12/15/17 21:00 02/13/18 20:58 01/27/18 22:20 1 DROPS Levothyroxine Sodium (Synthroid Tab) 100 mcg DAILYBB PO 12/16/17 06:30 02/14/18 06:28 01/28/18 05:53 100 MCG Magnesium Hydroxide (Milk Of Magnesia Susp) 30 ml DAILY PRN PO 12/15/17 18:00 02/13/18 17:58 Potassium Chloride (Klor-Con Tab) 20 meq DAILY PO 12/16/17 09:00 02/14/18 08:58 01/27/18 08:54 20 MEQ Sodium Biphosphate/ Sodium Phosphate (Fleet Enema) 118 ml DAILY PRN [place] 12/15/17 18:00 02/13/18 17:58 Olanzapine (Zyprexa Inj) 2.5 mg DAILY PRN IM 01/09/18 21:45 02/08/18 21:44 Ipratropium [place] (Atrovent 0.02% 0.5MG/2.5ML Neb) 0.5 mg Q4H PRN INH 01/17/18 16:00 02/16/18 15:59 01/26/18 07:25 0.5 MG Levalbuterol (Xopenex 0.63 Mg/ 3 Ml Neb) 0.63 mg Q4H PRN INH 01/17/18 16:00 02/16/18 15:59 01/26/18 07:25 0.63 MG Metoprolol Succinate (Toprol Xl Tab) 50 mg QAM PO 01/22/18 09:00 02/21/18 08:59 01/27/18 08:55 50 MG Warfarin Sodium (Coumadin Tab) 3 mg DAILY@16 PO 01/25/18 16:00 02/24/18 15:59 Future Hold 01/26/18 15:36 3 MG Furosemide (Lasix Tab) 20 mg QAM PO 01/27/18 09:00 02/26/18 08:59 01/27/18 08:54 20 MG Objective Vital Signs Date Time Temp Pulse Resp B/P (MAP) Pulse Ox O2 Delivery O2 Flow Rate FiO2 01/28/18 14:40 88 18 90 Room Air 01/28/18 08:02 36.8 76 18 136/71 (92) 96 Room Air 01/28/18 07:50 Room Air 01/27/18 23:57 94 Nasal Cannula 2.0 01/27/18 23:55 Nasal Cannula 2.0 01/27/18 23:05 36.9 90 18 153/76 (101) 87 Room Air 01/27/18 16:03 36.6 68 18 137/69 (91) 01/27/18 16:00 Room Air Physical Exam General Appearance: no apparent distress, + obese Respiratory/Chest: no respiratory distress, no accessory muscle use, + decreased breath sounds Cardiovascular: regular rate, rhythm, no murmur Extremities: + pertinent finding (trace pitting edema b/l LE) Laboratory Results Last 24 Hours Test 01/28/18 06:27 Prothrombin Time 38.1 SECONDS Prothromb Time International Ratio 3.7 Assessment and Plan 01/28 - hold Coumadin - Lasix 20mg daily, monitor K 01/27 - hold Coumadin again - will likely need 2mg of Coumadin instead of 3mg - Lasix 20mg daily for now - monitor K 01/26 - saw the patient today - INR is >2; continue Coumadin 3mg and monitor in AM - will give Lasix 20mg daily Acute on Chronic Hypoxic Respiratory Failure - Resolved possibly secondary to pneumonia - completed antibiotic course Metabolic Encephalopathy - resolved - underlying dementia, appears to be at baseline Chronic Diastolic HF - will give 40mg of Lasix (01/25), will likely need 20mg of Lasix daily Chronic A. Fib - continue Diltiazem and Toprol - patient is now on Coumadin, INR is 2.2 - will give Coumadin 3mg and recheck INR - has had supratherapeutic INR with 5mg of Coumadin L Knee pain - resolved Hypothyroidism - continue Synthroid Ambulatory Dysfunction - PT/OT - needs SNF discharge DVT ppx - Coumadin FULL CODE
[2018-01-28 15:10] VITALS: BP 148/87; PULSE 76; TEMP 36.6; O2SAT 96
[2018-01-28] MEDS: LATANOPROST 0.005% OP SOLN 2.5 ML BTL OPB SCH (21:15)
[2018-01-28 23:04] VITALS: BP 121/89; PULSE 93; TEMP 36.8; O2SAT 93
[2018-01-29] MEDS: LEVOTHYROXINE 100 MCG TAB PO SCH (05:45)
[2018-01-29 06:34] LABS: HEMATOCRIT 37.4 % (37-47); HEMOGLOBIN 12.4 g/dL (12.0-16.0); MEAN CELL VOLUME 93.7 fL (80-100); MEAN CORPUSCULAR HEMOGLOBIN 31.1 pg (25-34); MEAN CORPUSCULAR HGB CONC 33.2 g/dl (32-36); MEAN PLATELET VOLUME 9.1 fL (7.4-10.4); PLATELET COUNT 241 K/uL (130-400); RED CELL DISTRIBUTION WIDTH CV 14.6 % (11.5-14.5); RED CELL DISTRIBUTION WIDTH SD 49.9 fL (36.4-46.3); WHITE BLOOD COUNT 6.64 K/uL (4.8-10.8)
[2018-01-29 06:41] LABS: INR 2.7 (0.9-1.1)
[2018-01-29 07:06] LABS: CALCIUM 8.5 mg/dl (8.5-10.1); CREATININE 0.84 mg/dl (0.60-1.20); POTASSIUM 4.2 mmol/L (3.5-5.1)
[2018-01-29 07:09] VITALS: BP 127/82; PULSE 81; TEMP 36.6; O2SAT 91
[2018-01-29] MEDS ORDERED: FUROSEMIDE 20 MG TAB PO STA (09:07)
--- NOTE | 2018-01-29 09:16 | Progress Note ---
Subjective Date of Service: Jan 29, 2018. Subjective Pt evaluation today including: conversation w/ patient, physical exam, lab review, review of studies, review of inpatient medication list Saw/examined the patient in room 387 She's doing fine, denies any problems +underlying dementia Problem List Medical Problems: (1) Altered mental status Status: Acute (2) Atrial fibrillation Status: Acute (3) Change in mental status Status: Acute (4) CO2 retention Status: Acute (5) Exacerbation of asthma Status: Acute (6) Respiratory distress Status: Acute (7) UTI (urinary tract infection) Status: Acute Review of Systems can't obtain due to patient's mental status Medications Current Inpatient Medications Medications (Trade) Dose Ordered Sig/Mak Route Start Time Stop Time Status Last Admin Dose Admin Promethazine HCl 12.5 mg/Sodium Chloride 50.5 ml @ 204 mls/hr Q6H PRN IV 12/15/17 17:15 02/13/18 17:13 Atorvastatin Calcium (Lipitor Tab) 40 mg DAILY PO 12/16/17 09:00 02/14/18 08:58 01/27/18 08:54 40 MG Bisacodyl (Dulcolax Supp) 10 mg DAILY PRN [place] 12/15/17 18:00 02/13/18 17:58 Diltiazem HCl (TIAzac CAP) 120 mg DAILY PO 12/16/17 09:00 02/14/18 08:58 01/27/18 08:54 120 MG Latanoprost (Xalatan Oph Soln) 1 drops HS OPB 12/15/17 21:00 02/13/18 20:58 01/28/18 21:15 1 DROPS Levothyroxine Sodium (Synthroid Tab) 100 mcg DAILYBB PO 12/16/17 06:30 02/14/18 06:28 01/29/18 05:45 100 MCG Magnesium Hydroxide (Milk Of Magnesia Susp) 30 ml DAILY PRN PO 12/15/17 18:00 02/13/18 17:58 Potassium Chloride (Klor-Con Tab) 20 meq DAILY PO 12/16/17 09:00 02/14/18 08:58 01/27/18 08:54 20 MEQ Sodium Biphosphate/ Sodium Phosphate (Fleet Enema) 118 ml DAILY PRN [place] 12/15/17 18:00 02/13/18 17:58 Olanzapine (Zyprexa Inj) 2.5 mg DAILY PRN IM 01/09/18 21:45 02/08/18 21:44 Ipratropium [place] (Atrovent 0.02% 0.5MG/2.5ML Neb) 0.5 mg Q4H PRN INH 01/17/18 16:00 02/16/18 15:59 01/26/18 07:25 0.5 MG Levalbuterol (Xopenex 0.63 Mg/ 3 Ml Neb) 0.63 mg Q4H PRN INH 01/17/18 16:00 02/16/18 15:59 01/26/18 07:25 0.63 MG Metoprolol Succinate (Toprol Xl Tab) 50 mg QAM PO 01/22/18 09:00 02/21/18 08:59 01/27/18 08:55 50 MG Furosemide (Lasix Tab) 20 mg QAM PO 01/27/18 09:00 02/26/18 08:59 01/27/18 08:54 20 MG Warfarin Sodium (Coumadin Tab) 0.5 mg DAILY@16 PO 01/29/18 16:00 02/28/18 15:59 Objective Vital Signs Date Time Temp Pulse Resp B/P (MAP) Pulse Ox O2 Delivery O2 Flow Rate FiO2 01/29/18 07:09 36.6 81 18 127/82 (97) 91 Room Air 01/29/18 00:20 Room Air 01/28/18 23:04 36.8 93 18 121/89 (100) 93 Room Air 01/28/18 15:55 Room Air 01/28/18 15:10 36.6 76 22 148/87 (107) 96 Room Air 01/28/18 14:40 88 18 90 Room Air Physical Exam General Appearance: no apparent distress, + pertinent finding (+underlying dementia) Respiratory/Chest: no respiratory distress, no accessory muscle use, + decreased breath sounds Cardiovascular: regular rate, rhythm, no murmur Extremities: + swelling (+1 pitting edema b/l LE), + pertinent finding Laboratory Results Last 24 Hours Test 01/29/18 05:54 White Blood Count 6.64 K/uL Red Blood Count 3.99 M/uL Hemoglobin 12.4 g/dL Hematocrit 37.4 % Mean Corpuscular Volume 93.7 fL Mean Corpuscular Hemoglobin 31.1 pg Mean Corpuscular Hemoglobin Concent 33.2 g/dl RDW Standard Deviation 49.9 fL RDW Coefficient of Variation 14.6 % Platelet Count 241 K/uL Mean Platelet Volume 9.1 fL Prothrombin Time 27.3 SECONDS Prothromb Time International Ratio 2.7 Sodium Level 134 mmol/L Potassium Level 4.2 mmol/L Chloride Level 97 mmol/L Carbon Dioxide Level 34 mmol/L Anion Gap 3.0 mmol/L Blood Urea Nitrogen 13 mg/dl Creatinine 0.84 mg/dl Est Creatinine Clear Calc Drug Dose 58.2 ml/min Estimated GFR () 73.5 Estimated GFR (Non- 63.4 BUN/Creatinine Ratio 14.9 Random Glucose 96 mg/dl Calcium Level 8.5 mg/dl Magnesium Level 2.0 mg/dl Assessment and Plan 01/29 - Coumadin 0.5mg today, recheck INR in AM - giving Lasix 40mg today due to shortness of breath and LE edema 01/28 - hold Coumadin - Lasix 20mg daily, monitor K 01/27 - hold Coumadin again - will likely need 2mg of Coumadin instead of 3mg - Lasix 20mg daily for now - monitor K 01/26 - saw the patient today - INR is >2; continue Coumadin 3mg and monitor in AM - will give Lasix 20mg daily Acute on Chronic Hypoxic Respiratory Failure - Resolved possibly secondary to pneumonia - completed antibiotic course Metabolic Encephalopathy - resolved - underlying dementia, appears to be at baseline Chronic Diastolic HF - will give 40mg of Lasix (01/25), will likely need 20mg of Lasix daily Chronic A. Fib - continue Diltiazem and Toprol - patient is now on Coumadin, INR is 2.2 - will give Coumadin 3mg and recheck INR - has had supratherapeutic INR with 5mg of Coumadin L Knee pain - resolved Hypothyroidism - continue Synthroid Ambulatory Dysfunction - PT/OT - needs SNF discharge DVT ppx - Coumadin FULL CODE
[2018-01-29] MEDS: POTASSIUM CHLORIDE 20 MEQ TABCR PO SCH (13:13)
[2018-01-29] MEDS: ATORVASTATIN 40 MG TAB PO SCH (13:14)
[2018-01-29] MEDS: DILTIAZEM HCL 120 MG EXT REL CAP PO SCH (13:14)
[2018-01-29] MEDS: FUROSEMIDE 20 MG TAB PO SCH (13:14)
[2018-01-29] MEDS: METOPROLOL SUCC 50MG EXT REL TAB PO SCH (13:15)
[2018-01-29 15:04] VITALS: PULSE 87; O2SAT 90
[2018-01-29] MEDS: LEVALBUTEROL 0.63MG/3 ML NEB INH PRN (15:04)
[2018-01-29] MEDS: IPRATROPIUM BROMIDE NEB SOLN 0.02% 2.5 ML VIAL INH PRN (15:04)
[2018-01-29 15:50] VITALS: O2SAT 93
[2018-01-29] MEDS: WARFARIN SOD 0.5 MG TAB PO SCH (15:55)
[2018-01-29 15:56] VITALS: BP 145/78; PULSE 99; TEMP 36.3; O2SAT 94
[2018-01-29] MEDS: LATANOPROST 0.005% OP SOLN 2.5 ML BTL OPB SCH (21:07)
[2018-01-30 00:10] VITALS: BP 92/54; PULSE 70; TEMP 36.5; O2SAT 91
[2018-01-30] MEDS: LEVOTHYROXINE 100 MCG TAB PO SCH (05:49)
[2018-01-30 07:13] VITALS: BP 147/53; PULSE 83; TEMP 36.4; O2SAT 88
[2018-01-30 07:35] LABS: INR 2.3 (0.9-1.1)
[2018-01-30 07:56] VITALS: PULSE 88; O2SAT 90
[2018-01-30] MEDS: LEVALBUTEROL 0.63MG/3 ML NEB INH PRN (07:56)
[2018-01-30] MEDS: IPRATROPIUM BROMIDE NEB SOLN 0.02% 2.5 ML VIAL INH PRN (07:56)
--- NOTE | 2018-01-30 08:17 | Progress Note ---
Subjective Date of Service: Jan 30, 2018. Subjective Pt evaluation today including: conversation w/ patient, physical exam, lab review, review of studies, review of inpatient medication list Saw/examined the patient in room 387 +audible wheezing heard currently receiving breathing treatment Problem List Medical Problems: (1) Altered mental status Status: Acute (2) Atrial fibrillation Status: Acute (3) Change in mental status Status: Acute (4) CO2 retention Status: Acute (5) Exacerbation of asthma Status: Acute (6) Respiratory distress Status: Acute (7) UTI (urinary tract infection) Status: Acute Review of Systems Denies any symptoms - underlying dementia Medications Current Inpatient Medications Medications (Trade) Dose Ordered Sig/Mak Route Start Time Stop Time Status Last Admin Dose Admin Promethazine HCl 12.5 mg/Sodium Chloride 50.5 ml @ 204 mls/hr Q6H PRN IV 12/15/17 17:15 02/13/18 17:13 Atorvastatin Calcium (Lipitor Tab) 40 mg DAILY PO 12/16/17 09:00 02/14/18 08:58 01/29/18 13:14 40 MG Bisacodyl (Dulcolax Supp) 10 mg DAILY PRN [place] 12/15/17 18:00 02/13/18 17:58 Diltiazem HCl (TIAzac CAP) 120 mg DAILY PO 12/16/17 09:00 02/14/18 08:58 01/29/18 13:14 120 MG Latanoprost (Xalatan Oph Soln) 1 drops HS OPB 12/15/17 21:00 02/13/18 20:58 01/29/18 21:07 1 DROPS Levothyroxine Sodium (Synthroid Tab) 100 mcg DAILYBB PO 12/16/17 06:30 02/14/18 06:28 01/30/18 05:49 100 MCG Magnesium Hydroxide (Milk Of Magnesia Susp) 30 ml DAILY PRN PO 12/15/17 18:00 02/13/18 17:58 Potassium Chloride (Klor-Con Tab) 20 meq DAILY PO 12/16/17 09:00 02/14/18 08:58 01/29/18 13:13 20 MEQ Sodium Biphosphate/ Sodium Phosphate (Fleet Enema) 118 ml DAILY PRN [place] 12/15/17 18:00 02/13/18 17:58 Olanzapine (Zyprexa Inj) 2.5 mg DAILY PRN IM 01/09/18 21:45 02/08/18 21:44 Ipratropium [place] (Atrovent 0.02% 0.5MG/2.5ML Neb) 0.5 mg Q4H PRN INH 01/17/18 16:00 02/16/18 15:59 01/30/18 07:56 0.5 MG Levalbuterol (Xopenex 0.63 Mg/ 3 Ml Neb) 0.63 mg Q4H PRN INH 01/17/18 16:00 02/16/18 15:59 01/30/18 07:56 0.63 MG Metoprolol Succinate (Toprol Xl Tab) 50 mg QAM PO 01/22/18 09:00 02/21/18 08:59 01/29/18 13:15 50 MG Furosemide (Lasix Tab) 20 mg QAM PO 01/27/18 09:00 02/26/18 08:59 01/29/18 13:14 20 MG Warfarin Sodium (Coumadin Tab) 0.5 mg DAILY@16 PO 01/29/18 16:00 02/28/18 15:59 01/29/18 15:55 0.5 MG Objective Vital Signs Date Time Temp Pulse Resp B/P (MAP) Pulse Ox O2 Delivery O2 Flow Rate FiO2 01/30/18 07:56 88 18 90 Room Air 01/30/18 07:13 36.4 83 14 147/53 (84) 88 Room Air 01/30/18 00:20 Room Air 01/30/18 00:10 36.5 70 22 92/54 (67) 91 Room Air 01/29/18 15:56 36.3 99 20 145/78 (100) 94 Room Air 01/29/18 15:50 93 Room Air 01/29/18 15:04 87 18 90 Room Air 01/29/18 09:00 Room Air Physical Exam General Appearance: no apparent distress, + pertinent finding (+pleasantly demented) Respiratory/Chest: no respiratory distress, no accessory muscle use, + decreased breath sounds, + wheezing Cardiovascular: regular rate, rhythm Extremities: + pertinent finding (+1 pitting edema b/l LE) Laboratory Results Last 24 Hours Test 01/30/18 06:43 Prothrombin Time 23.6 SECONDS Prothromb Time International Ratio 2.3 Assessment and Plan 01/30 - today's plan is to change her morning medications to around 11:30AM; comes to the hospital around 11AM and she is more compliant when he is around. He can also witness patient getting all the medications that she needs. - increase Lasix to 40mg - continue Coumadin 0.5mg - check potassium, magnesium and INR in AM (01/31) 01/29 - Coumadin 0.5mg today, recheck INR in AM - giving Lasix 40mg today due to shortness of breath and LE edema 01/28 - hold Coumadin - Lasix 20mg daily, monitor K 01/27 - hold Coumadin again - will likely need 2mg of Coumadin instead of 3mg - Lasix 20mg daily for now - monitor K 01/26 - saw the patient today - INR is >2; continue Coumadin 3mg and monitor in AM - will give Lasix 20mg daily Acute on Chronic Hypoxic Respiratory Failure - Improved possibly secondary to pneumonia - completed antibiotic course Metabolic Encephalopathy - resolved - underlying dementia, appears to be at baseline Chronic Diastolic HF - will give 40mg of Lasix (01/25), will likely need 20mg of Lasix daily Chronic A. Fib - continue Diltiazem and Toprol - patient is now on Coumadin, INR is 2.2 - will give Coumadin 3mg and recheck INR - has had supratherapeutic INR with 5mg of Coumadin L Knee pain - resolved Hypothyroidism - continue Synthroid Ambulatory Dysfunction - PT/OT - needs SNF discharge DVT ppx - Coumadin FULL CODE
[2018-01-30] MEDS: ATORVASTATIN 40 MG TAB PO SCH (11:25)
[2018-01-30] MEDS: METOPROLOL SUCC 50MG EXT REL TAB PO SCH (11:25)
[2018-01-30] MEDS: FUROSEMIDE 40 MG TAB PO SCH (11:25)
[2018-01-30] MEDS: POTASSIUM CHLORIDE 20 MEQ TABCR PO SCH (11:25)
[2018-01-30] MEDS: DILTIAZEM HCL 120 MG EXT REL CAP PO SCH (11:27)
[2018-01-30 14:53] VITALS: BP 148/67; PULSE 79; TEMP 36.7; O2SAT 92
[2018-01-30] MEDS: WARFARIN SOD 0.5 MG TAB PO SCH (16:21)
[2018-01-30] MEDS: LATANOPROST 0.005% OP SOLN 2.5 ML BTL OPB SCH (21:27)
[2018-01-30 23:41] VITALS: BP 151/80; PULSE 65; TEMP 36.5; O2SAT 93
[2018-01-31 00:15] VITALS: O2SAT 90
[2018-01-31] MEDS: LEVOTHYROXINE 100 MCG TAB PO SCH (06:26)
[2018-01-31 06:53] VITALS: BP 141/62; PULSE 76; TEMP 36.5; O2SAT 90
[2018-01-31 07:36] LABS: CALCIUM 9.1 mg/dl (8.5-10.1); CREATININE 0.84 mg/dl (0.60-1.20); POTASSIUM 4.5 mmol/L (3.5-5.1)
--- NOTE | 2018-01-31 08:43 | Progress Note ---
Subjective Date of Service: Jan 31, 2018. Subjective Pt evaluation today including: conversation w/ patient, physical exam, lab review, review of studies, review of inpatient medication list Saw/examined the patient in room 387 She has some shortness of breath and lower extremity edema Denies any other symptoms Problem List Medical Problems: (1) Altered mental status Status: Acute (2) Atrial fibrillation Status: Acute (3) Change in mental status Status: Acute (4) CO2 retention Status: Acute (5) Exacerbation of asthma Status: Acute (6) Respiratory distress Status: Acute (7) UTI (urinary tract infection) Status: Acute Review of Systems Respiratory: + shortness of breath Cardiac: + edema, No chest pain Medications Current Inpatient Medications Medications (Trade) Dose Ordered Sig/Mak Route Start Time Stop Time Status Last Admin Dose Admin Promethazine HCl 12.5 mg/Sodium Chloride 50.5 ml @ 204 mls/hr Q6H PRN IV 12/15/17 17:15 02/13/18 17:13 Bisacodyl (Dulcolax Supp) 10 mg DAILY PRN [place] 12/15/17 18:00 02/13/18 17:58 Latanoprost (Xalatan Oph Soln) 1 drops HS OPB 12/15/17 21:00 02/13/18 20:58 01/30/18 21:27 1 DROPS Levothyroxine Sodium (Synthroid Tab) 100 mcg DAILYBB PO 12/16/17 06:30 02/14/18 06:28 01/31/18 06:26 100 MCG Magnesium Hydroxide (Milk Of Magnesia Susp) 30 ml DAILY PRN PO 12/15/17 18:00 02/13/18 17:58 Sodium Biphosphate/ Sodium Phosphate (Fleet Enema) 118 ml DAILY PRN [place] 12/15/17 18:00 02/13/18 17:58 Olanzapine (Zyprexa Inj) 2.5 mg DAILY PRN IM 01/09/18 21:45 02/08/18 21:[address] [place] (Atrovent 0.02% 0.5MG/2.5ML Neb) 0.5 mg Q4H PRN INH 01/17/18 16:00 02/16/18 15:59 01/30/18 07:56 0.5 MG Levalbuterol (Xopenex 0.63 Mg/ 3 Ml Neb) 0.63 mg Q4H PRN INH 01/17/18 16:00 02/16/18 15:59 01/30/18 07:56 0.63 MG Warfarin Sodium (Coumadin Tab) 0.5 mg DAILY@16 PO 01/29/18 16:00 02/28/18 15:59 01/30/18 16:21 0.5 MG Atorvastatin Calcium (Lipitor Tab) 40 mg DAILY PO 01/30/18 11:30 02/14/18 08:58 01/30/18 11:25 40 MG Diltiazem HCl (TIAzac CAP) 120 mg DAILY PO 01/30/18 11:30 02/14/18 08:58 01/30/18 11:27 120 MG Furosemide (Lasix Tab) 40 mg QAM PO 01/30/18 11:30 02/26/18 08:59 01/30/18 11:25 40 MG Metoprolol Succinate (Toprol Xl Tab) 50 mg QAM PO 01/30/18 11:30 02/21/18 08:59 01/30/18 11:25 50 MG Potassium Chloride (Klor-Con Tab) 20 meq DAILY PO 01/30/18 11:30 02/14/18 08:58 01/30/18 11:25 20 MEQ Miconazole Nitrate (Desenex Powder) 1 appln PRN PRN EXT 01/30/18 22:15 03/01/18 22:14 Objective Vital Signs Date Time Temp Pulse Resp B/P (MAP) Pulse Ox O2 Delivery O2 Flow Rate FiO2 01/31/18 06:53 36.5 76 24 141/62 (88) 90 Room Air 01/31/18 00:15 90 Room Air 2.0 01/30/18 23:41 36.5 65 18 151/80 (103) 93 Room Air 01/30/18 15:45 Room Air 01/30/18 14:53 36.7 79 16 148/67 (94) 92 Room Air 01/30/18 09:00 Room Air Physical Exam General Appearance: no apparent distress, + pertinent finding (underlying dementia) Respiratory/Chest: no respiratory distress, no accessory muscle use, + decreased breath sounds Cardiovascular: regular rate, rhythm Extremities: + pedal edema, + swelling, + pertinent finding (FLORENCIA stockings are on; +1-2 pitting edema b/l LE) Laboratory Results Last 24 Hours Test 01/31/18 06:32 Prothrombin Time 20.8 SECONDS Prothromb Time International Ratio 2.0 Sodium Level 134 mmol/L Potassium Level 4.5 mmol/L Chloride Level 96 mmol/L Carbon Dioxide Level 33 mmol/L Anion Gap 5.0 mmol/L Blood Urea Nitrogen 11 mg/dl Creatinine 0.84 mg/dl Est Creatinine Clear Calc Drug Dose 58.2 ml/min Estimated GFR () 73.5 Estimated GFR (Non- 63.4 BUN/Creatinine Ratio 12.8 Random Glucose 99 mg/dl Calcium Level 9.1 mg/dl Magnesium Level 2.1 mg/dl Assessment and Plan 01/31 - increase Coumadin to 1mg daily - continue Lasix 40mg daily - FLORENCIA stockings in place - nebs as needed 01/30 - today's plan is to change her morning medications to around 11:30AM; comes to the hospital around 11AM and she is more compliant when he is around. He can also witness patient getting all the medications that she needs. - increase Lasix to 40mg - continue Coumadin 0.5mg - check potassium, magnesium and INR in AM (01/31) 01/29 - Coumadin 0.5mg today, recheck INR in AM - giving Lasix 40mg today due to shortness of breath and LE edema 01/28 - hold Coumadin - Lasix 20mg daily, monitor K 01/27 - hold Coumadin again - will likely need 2mg of Coumadin instead of 3mg - Lasix 20mg daily for now - monitor K 01/26 - saw the patient today - INR is >2; continue Coumadin 3mg and monitor in AM - will give Lasix 20mg daily Acute on Chronic Hypoxic Respiratory Failure - Improved possibly secondary to pneumonia - completed antibiotic course Metabolic Encephalopathy - resolved - underlying dementia, appears to be at baseline Chronic Diastolic HF - will give 40mg of Lasix (01/25), will likely need 20mg of Lasix daily Chronic A. Fib - continue Diltiazem and Toprol - patient is now on Coumadin, INR is 2.2 - will give Coumadin 3mg and recheck INR - has had supratherapeutic INR with 5mg of Coumadin L Knee pain - resolved Hypothyroidism - continue Synthroid Ambulatory Dysfunction - PT/OT - needs SNF discharge DVT ppx - Coumadin FULL CODE
[2018-01-31] MEDS: METOPROLOL SUCC 50MG EXT REL TAB PO SCH (13:12)
[2018-01-31] MEDS: POTASSIUM CHLORIDE 20 MEQ TABCR PO SCH (13:12)
[2018-01-31] MEDS: ATORVASTATIN 40 MG TAB PO SCH (13:12)
[2018-01-31] MEDS: FUROSEMIDE 40 MG TAB PO SCH (13:12)
[2018-01-31] MEDS: DILTIAZEM HCL 120 MG EXT REL CAP PO SCH (13:13)
[2018-01-31 15:07] VITALS: BP 136/86; PULSE 74; TEMP 36.5; O2SAT 94
[2018-01-31] MEDS ORDERED: WARFARIN SOD 0.5 MG TAB PO SCH (16:00)
[2018-01-31] MEDS: LATANOPROST 0.005% OP SOLN 2.5 ML BTL OPB SCH (21:34)
[2018-01-31 23:15] VITALS: BP 145/73; PULSE 65; TEMP 36.8; O2SAT 88
[2018-01-31 23:18] VITALS: O2SAT 93
[2018-02-01 00:30] VITALS: O2SAT 90
[2018-02-01] MEDS: LEVOTHYROXINE 100 MCG TAB PO SCH (06:21)
[2018-02-01 07:44] VITALS: BP 124/63; PULSE 65; TEMP 36.8; O2SAT 93
--- NOTE | 2018-02-01 11:13 | Progress Note ---
Subjective Date of Service: Feb 01, 2018. Subjective Pt evaluation today including: conversation w/ patient, physical exam, lab review, review of studies, review of inpatient medication list Saw/examined the patient in room 387 +good PO intake Denies shortness of breath underlying dementia Problem List Medical Problems: (1) Altered mental status Status: Acute (2) Atrial fibrillation Status: Acute (3) Change in mental status Status: Acute (4) CO2 retention Status: Acute (5) Exacerbation of asthma Status: Acute (6) Respiratory distress Status: Acute (7) UTI (urinary tract infection) Status: Acute Review of Systems +underlying dementia Medications Current Inpatient Medications Medications (Trade) Dose Ordered Sig/Mak Route Start Time Stop Time Status Last Admin Dose Admin Promethazine HCl 12.5 mg/Sodium Chloride 50.5 ml @ 204 mls/hr Q6H PRN IV 12/15/17 17:15 02/13/18 17:13 Bisacodyl (Dulcolax Supp) 10 mg DAILY PRN [place] 12/15/17 18:00 02/13/18 17:58 Latanoprost (Xalatan Oph Soln) 1 drops HS OPB 12/15/17 21:00 02/13/18 20:58 01/31/18 21:34 1 DROPS Levothyroxine Sodium (Synthroid Tab) 100 mcg DAILYBB PO 12/16/17 06:30 02/14/18 06:28 02/01/18 06:21 100 MCG Magnesium Hydroxide (Milk Of Magnesia Susp) 30 ml DAILY PRN PO 12/15/17 18:00 02/13/18 17:58 Sodium Biphosphate/ Sodium Phosphate (Fleet Enema) 118 ml DAILY PRN [place] 12/15/17 18:00 02/13/18 17:58 Olanzapine (Zyprexa Inj) 2.5 mg DAILY PRN IM 01/09/18 21:45 02/08/18 21:44 Ipratropium [place] (Atrovent 0.02% 0.5MG/2.5ML Neb) 0.5 mg Q4H PRN INH 01/17/18 16:00 02/16/18 15:59 01/30/18 07:56 0.5 MG Levalbuterol (Xopenex 0.63 Mg/ 3 Ml Neb) 0.63 mg Q4H PRN INH 01/17/18 16:00 02/16/18 15:59 01/30/18 07:56 0.63 MG Atorvastatin Calcium (Lipitor Tab) 40 mg DAILY PO 01/30/18 11:30 02/14/18 08:58 01/31/18 13:12 40 MG Diltiazem HCl (TIAzac CAP) 120 mg DAILY PO 01/30/18 11:30 02/14/18 08:58 01/31/18 13:13 120 MG Furosemide (Lasix Tab) 40 mg QAM PO 01/30/18 11:30 02/26/18 08:59 01/31/18 13:12 40 MG Metoprolol Succinate (Toprol Xl Tab) 50 mg QAM PO 01/30/18 11:30 02/21/18 08:59 01/31/18 13:12 50 MG Potassium Chloride (Klor-Con Tab) 20 meq DAILY PO 01/30/18 11:30 02/14/18 08:58 01/31/18 13:12 20 MEQ Miconazole Nitrate (Desenex Powder) 1 appln PRN PRN EXT 01/30/18 22:15 03/01/18 22:14 Warfarin Sodium (Coumadin Tab) 1 mg DAILY@16 PO 01/31/18 16:00 02/28/18 15:59 01/31/18 16:02 1 MG Objective Vital Signs Date Time Temp Pulse Resp B/P (MAP) Pulse Ox O2 Delivery O2 Flow Rate FiO2 02/01/18 07:44 36.8 65 22 124/63 (83) 93 Nasal Cannula 2.0 02/01/18 00:30 90 Nasal Cannula 2.0 01/31/18 23:18 93 Nasal Cannula 2.0 01/31/18 23:15 36.8 65 18 145/73 (97) 88 Room Air 01/31/18 16:00 Room Air 01/31/18 15:07 36.5 74 20 136/86 (103) 94 Room Air Physical Exam General Appearance: no apparent distress, + obese, + pertinent finding (+ pleasantly demented) Respiratory/Chest: + decreased breath sounds, + wheezing Extremities: + swelling, + pertinent finding (+1 pitting edema b/l LE) Laboratory Results Last 24 Hours Test 02/01/18 06:35 Prothrombin Time 20.8 SECONDS Prothromb Time International Ratio 2.0 Assessment and Plan 02/01 - continue Coumadin 1mg; INR is 2.0, check in AM - continue Lasix 40mg 01/31 - increase Coumadin to 1mg daily - continue Lasix 40mg daily - FLORENCIA stockings in place - nebs as needed 01/30 - today's plan is to change her morning medications to around 11:30AM; comes to the hospital around 11AM and she is more compliant when he is around. He can also witness patient getting all the medications that she needs. - increase Lasix to 40mg - continue Coumadin 0.5mg - check potassium, magnesium and INR in AM (01/31) 01/29 - Coumadin 0.5mg today, recheck INR in AM - giving Lasix 40mg today due to shortness of breath and LE edema 01/28 - hold Coumadin - Lasix 20mg daily, monitor K 01/27 - hold Coumadin again - will likely need 2mg of Coumadin instead of 3mg - Lasix 20mg daily for now - monitor K 01/26 - saw the patient today - INR is >2; continue Coumadin 3mg and monitor in AM - will give Lasix 20mg daily Acute on Chronic Hypoxic Respiratory Failure - Improved possibly secondary to pneumonia - completed antibiotic course Metabolic Encephalopathy - resolved - underlying dementia, appears to be at baseline Chronic Diastolic HF - will give 40mg of Lasix (01/25), will likely need 20mg of Lasix daily Chronic A. Fib - continue Diltiazem and Toprol - patient is now on Coumadin, INR is 2.2 - will give Coumadin 3mg and recheck INR - has had supratherapeutic INR with 5mg of Coumadin L Knee pain - resolved Hypothyroidism - continue Synthroid Ambulatory Dysfunction - PT/OT - needs SNF discharge DVT ppx - Coumadin FULL CODE
[2018-02-01] MEDS: METOPROLOL SUCC 50MG EXT REL TAB PO SCH (12:38)
[2018-02-01] MEDS: ATORVASTATIN 40 MG TAB PO SCH (12:38)
[2018-02-01] MEDS: DILTIAZEM HCL 120 MG EXT REL CAP PO SCH (12:38)
[2018-02-01] MEDS: POTASSIUM CHLORIDE 20 MEQ TABCR PO SCH (12:38)
[2018-02-01] MEDS: FUROSEMIDE 40 MG TAB PO SCH (12:38)
[2018-02-01 16:33] VITALS: BP 124/69; PULSE 65; TEMP 36.8; O2SAT 93
[2018-02-01] MEDS: WARFARIN SOD 1 MG TAB PO SCH (16:36)
[2018-02-01] MEDS: LATANOPROST 0.005% OP SOLN 2.5 ML BTL OPB SCH (21:29)
[2018-02-01 23:00] VITALS: BP_SYST 131; BP_SYST 81; BP_DIAS 39; BP_DIAS 61; PULSE 74; PULSE 77; TEMP 36.6; TEMP 36.7; O2SAT 91; O2SAT 92
[2018-02-02] VITALS (9 sets, daily range): BP systolic 120–163; BP diastolic 56–80; PULSE 63–79; TEMP 36.4–36.5; O2SAT 85–95
[2018-02-02 05:48] LABS: CALCIUM 8.7 mg/dl (8.5-10.1); CREATININE 1.04 mg/dl (0.60-1.20); POTASSIUM 4.1 mmol/L (3.5-5.1)
[2018-02-02] MEDS: LEVOTHYROXINE 100 MCG TAB PO SCH (06:04)
--- NOTE | 2018-02-02 08:37 | Progress Note ---
Subjective Date of Service: Feb 02, 2018. Subjective Pt evaluation today including: conversation w/ patient, physical exam, lab review, review of studies, review of inpatient medication list Saw/examined the patient in room 387 No problems/issues at this time; she denies shortness of breath/chest pain Denies any other issues; good PO intake Underlying dementia Problem List Medical Problems: (1) Altered mental status Status: Acute (2) Atrial fibrillation Status: Acute (3) Change in mental status Status: Acute (4) CO2 retention Status: Acute (5) Exacerbation of asthma Status: Acute (6) Respiratory distress Status: Acute (7) UTI (urinary tract infection) Status: Acute Review of Systems Cannot obtain due to patient's mental status Medications Current Inpatient Medications Medications (Trade) Dose Ordered Sig/Mak Route Start Time Stop Time Status Last Admin Dose Admin Promethazine HCl 12.5 mg/Sodium Chloride 50.5 ml @ 204 mls/hr Q6H PRN IV 12/15/17 17:15 02/13/18 17:13 Bisacodyl (Dulcolax Supp) 10 mg DAILY PRN MD 12/15/17 18:00 02/13/18 17:58 Latanoprost (Xalatan Oph Soln) 1 drops HS OPB 12/15/17 21:00 02/13/18 20:58 02/01/18 21:29 1 DROPS Levothyroxine Sodium (Synthroid Tab) 100 mcg DAILYBB PO 12/16/17 06:30 02/14/18 06:28 02/02/18 06:04 100 MCG Magnesium Hydroxide (Milk Of Magnesia Susp) 30 ml DAILY PRN PO 12/15/17 18:00 02/13/18 17:58 Sodium Biphosphate/ Sodium Phosphate (Fleet Enema) 118 ml DAILY PRN MD 12/15/17 18:00 02/13/18 17:58 Olanzapine (Zyprexa Inj) 2.5 mg DAILY PRN IM 01/09/18 21:45 02/08/18 21:44 Ipratropium [place] (Atrovent 0.02% 0.5MG/2.5ML Neb) 0.5 mg Q4H PRN INH 01/17/18 16:00 02/16/18 15:59 01/30/18 07:56 0.5 MG Levalbuterol (Xopenex 0.63 Mg/ 3 Ml Neb) 0.63 mg Q4H PRN INH 01/17/18 16:00 02/16/18 15:59 01/30/18 07:56 0.63 MG Atorvastatin Calcium (Lipitor Tab) 40 mg DAILY PO 01/30/18 11:30 02/14/18 08:58 02/01/18 12:38 40 MG Diltiazem HCl (TIAzac CAP) 120 mg DAILY PO 01/30/18 11:30 02/14/18 08:58 02/01/18 12:38 120 MG Furosemide (Lasix Tab) 40 mg QAM PO 01/30/18 11:30 02/26/18 08:59 02/01/18 12:38 40 MG Metoprolol Succinate (Toprol Xl Tab) 50 mg QAM PO 01/30/18 11:30 02/21/18 08:59 02/01/18 12:38 50 MG Potassium Chloride (Klor-Con Tab) 20 meq DAILY PO 01/30/18 11:30 02/14/18 08:58 02/01/18 12:38 20 MEQ Miconazole Nitrate (Desenex Powder) 1 appln PRN PRN EXT 01/30/18 22:15 03/01/18 22:14 Warfarin Sodium (Coumadin Tab) 1 mg DAILY@16 PO 02/01/18 16:00 03/03/18 15:59 02/01/18 16:36 1 MG Objective Vital Signs Date Time Temp Pulse Resp B/P (MAP) Pulse Ox O2 Delivery O2 Flow Rate FiO2 02/02/18 07:15 36.4 73 16 148/75 (99) 90 Room Air 02/02/18 00:05 90 Room Air 2.0 02/01/18 23:00 36.6 77 14 81/39 (53) 92 Room Air 02/01/18 23:00 36.7 74 18 131/61 (84) 91 Room Air 02/01/18 16:33 36.8 65 18 124/69 (87) 93 02/01/18 16:30 Room Air Physical Exam General Appearance: no apparent distress Respiratory/Chest: no respiratory distress, no accessory muscle use, + decreased breath sounds Cardiovascular: regular rate, rhythm, no murmur Extremities: + pertinent finding (trace pitting edema, improving) Laboratory Results Last 24 Hours Test 02/02/18 04:03 Prothrombin Time 20.3 SECONDS Prothromb Time International Ratio 2.0 Sodium Level 133 mmol/L Potassium Level 4.1 mmol/L Chloride Level 94 mmol/L Carbon Dioxide Level 33 mmol/L Anion Gap 6.0 mmol/L Blood Urea Nitrogen 14 mg/dl Creatinine 1.04 mg/dl Est Creatinine Clear Calc Drug Dose 47.0 ml/min Estimated GFR () 56.7 Estimated GFR (Non- 49.0 BUN/Creatinine Ratio 13.1 Random Glucose 99 mg/dl Calcium Level 8.7 mg/dl Assessment and Plan 02/02 - INR is 2.0 - continue Coumadin 1mg daily - Lasix 40mg daily, potassium 20meq daily - continue FLORENCIA stockings - continue nebs as needed - placement issue 02/01 - continue Coumadin 1mg; INR is 2.0, check in AM - continue Lasix 40mg 01/31 - increase Coumadin to 1mg daily - continue Lasix 40mg daily - FLORENCIA stockings in place - nebs as needed 01/30 - today's plan is to change her morning medications to around 11:30AM; comes to the hospital around 11AM and she is more compliant when he is around. He can also witness patient getting all the medications that she needs. - increase Lasix to 40mg - continue Coumadin 0.5mg - check potassium, magnesium and INR in AM (01/31) 01/29 - Coumadin 0.5mg today, recheck INR in AM - giving Lasix 40mg today due to shortness of breath and LE edema 01/28 - hold Coumadin - Lasix 20mg daily, monitor K 01/27 - hold Coumadin again - will likely need 2mg of Coumadin instead of 3mg - Lasix 20mg daily for now - monitor K 01/26 - saw the patient today - INR is >2; continue Coumadin 3mg and monitor in AM - will give Lasix 20mg daily Acute on Chronic Hypoxic Respiratory Failure - Improved possibly secondary to pneumonia - completed antibiotic course Metabolic Encephalopathy - resolved - underlying dementia, appears to be at baseline Chronic Diastolic HF - will give 40mg of Lasix (01/25); increased from 20mg daily Chronic A. Fib - continue Diltiazem and Toprol - patient is now on Coumadin, INR is 2.2 - will give Coumadin 3mg and recheck INR - has had supratherapeutic INR with 5mg of Coumadin L Knee pain - resolved Hypothyroidism - continue Synthroid Ambulatory Dysfunction - PT/OT - needs SNF discharge DVT ppx - Coumadin FULL CODE
[2018-02-02] MEDS: FUROSEMIDE 40 MG TAB PO SCH (08:57)
[2018-02-02] MEDS: POTASSIUM CHLORIDE 20 MEQ TABCR PO SCH (08:57)
[2018-02-02] MEDS: METOPROLOL SUCC 50MG EXT REL TAB PO SCH (08:58)
[2018-02-02] MEDS: DILTIAZEM HCL 120 MG EXT REL CAP PO SCH (08:58)
[2018-02-02] MEDS: ATORVASTATIN 40 MG TAB PO SCH (08:58)
[2018-02-02] MEDS: LEVALBUTEROL 0.63MG/3 ML NEB INH PRN ×2 (09:14→23:34)
[2018-02-02] MEDS: IPRATROPIUM BROMIDE NEB SOLN 0.02% 2.5 ML VIAL INH PRN ×2 (09:14→23:34)
[2018-02-02] MEDS: WARFARIN SOD 1 MG TAB PO SCH (15:43)
[2018-02-02] MEDS: LATANOPROST 0.005% OP SOLN 2.5 ML BTL OPB SCH (20:58)
[2018-02-03] VITALS (17 sets, daily range): BP systolic 97–168; BP diastolic 59–91; PULSE 65–94; TEMP 36.3–37; O2SAT 88–100
[2018-02-03] MEDS: LEVOTHYROXINE 100 MCG TAB PO SCH (05:36)
[2018-02-03] MEDS: METOPROLOL SUCC 50MG EXT REL TAB PO SCH ×2 (08:58→21:02)
[2018-02-03] MEDS: DILTIAZEM HCL 120 MG EXT REL CAP PO SCH (08:58)
[2018-02-03] MEDS: POTASSIUM CHLORIDE 20 MEQ TABCR PO SCH (08:58)
[2018-02-03] MEDS: ATORVASTATIN 40 MG TAB PO SCH (08:58)
[2018-02-03] MEDS: FUROSEMIDE 40 MG TAB PO SCH (08:58)
--- NOTE | 2018-02-03 09:44 | DIAGNOSTIC IMAGING REPORT ---
CHEST ONE VIEW PORTABLE CLINICAL HISTORY: SOB dyspnea COMPARISON STUDY: 01/12/2018 FINDINGS: Unchanging pneumonitis left lung base. Mild stable cardia megaly. Bipolar cardiac pacemaker. Lungs otherwise appear clear. IMPRESSION: Small unchanging parenchymal infiltrate left base. Mild stable cardiomegaly. The above report was generated using voice recognition software. It may contain grammatical, syntax or spelling errors. Electronically signed by: Jason Last M.D. 02/03/2018 9:43 AM Dictated Date/Time: 02/03/2018 9:42 AM
--- NOTE | 2018-02-03 10:25 | Progress Note ---
Internal Med Progress Note Date of Service: Feb 03, 2018. Provider Documentation: SUBJECTIVE: Updated by nursing Patient was found to be more confused, minimally responsive to voice, looking at ceiling with blank stares Episodes of hypoxia noted SPO2 dropped down to 77% on 3 L oxygen via nasal cannula, improved to 90% after increasing oxygen to 4 L Heart rate noted to be bradycardic episodically to 60s, then recovers 80-70's Patient evaluated at bedside, Flat affect, when calling her names patient gets irritated shouts" what do you want" Denies of any chest pain, shortness of breath, says "I feel fine" Stat blood gas ordered ABG shows pH of 7.37 CO2 63/PO2 71/SPO2 93% on 2 L via nasal cannula Patient has audible wheeze Ordered for BiPAP respiratory updated/stat nebulizer treatment transferred to PCU Called patient's Aakash Huggins -updated OBJECTIVE: Vital Signs-as noted below Exam: GEN:Obese , no sign of distress , flat affect HEENT: sclera non icteric HEART: regular S1/S2 LUNGS: diminished breath sound , no wheeze or rales noted ABD: obese /soft, non-tender, non-distended, EXTREMITY: + 2 bilat lower lower ext edema , with chronic venous stasis changes NEURO: forgetfulness /baseline dementia ? no focal neurological deficit, oriented to place and person only Lab data as noted below. ASSESSMENT & PLAN: CONFUSION /METABOLIC ENCEPHALOPATHY : Found to be more obtunded and confused today possible due to hypoxemia /hypercapnia Blood gas as noted above has baseline dementia Ordered for BiPAP/respiratory support Repeat blood gas after few hours on BiPAP Monitor in telemetry ACUTE ON CHRONIC HYPOXEMIC /HYPERCAPNIC RESPIRATORY FAILURE worsening of respiratory failure today-possible secondary to CO2 is retention pt desaturates to upper 80's while sleeping ( suggestive of DEONDRE ) ordered for BiPAP Continue respiratory support will order CPAP at night Continue to monitor in telemetry Neb tx changed to scheduled until respiratory status improves CHRONIC A FIB : -rate controlled with Diltiazem and Toprol. On Coumadin, INR therapeutic LEFT KNEE PAIN secondary to severe OA- Status post a left knee steroid injection by orthopedics Will benefit with skilled facility/rehab and continued PT OT CHRONIC DIASTOLIC HEART FAILURE : compensated On Lasix HYPOTHYROIDISM : cont levothyroxine SEVERE AMBULATORY DYSFUNCTION unable to transfer or change position without assistance needs continued PT/OT /supportive care at a skilled facility then transition to [facility]pc care Not safe to return home without 24-hour care and support In past Coumadin pt and her continues to insist on going home then requiring admission in few hours due to fall multiple discussions with pt and her in past admission regarding safety issue office of aging involved Full Code DVT PROPHYLAXIS Coumadin 3 DISPOSITION -uncertain at this time. office of aging involved due to concern for safety issues Vital Signs: Date Time Temp Pulse Resp B/P (MAP) Pulse Ox O2 Delivery O2 Flow Rate FiO2 02/03/18 10:16 36.6 69 22 131/65 (87) 98 BiPAP 50 02/03/18 09:38 36.3 84 16 94 2.0 02/03/18 09:31 84 94 50 02/03/18 08:31 36.3 67 16 136/72 (93) 97 Nasal Cannula 2.0 02/03/18 08:00 Nasal Cannula 3.0 02/02/18 23:40 Nasal Cannula 3.0 02/02/18 23:35 78 18 93 Nasal Cannula 3.0 02/02/18 23:22 92 Nasal Cannula 3.0 02/02/18 23:20 36.5 69 18 155/79 (104) 85 Room Air 02/02/18 15:40 Nasal Cannula 2.0 02/02/18 15:02 36.4 63 20 120/56 (77) 94 Nasal Cannula 2.0 Lab Results: Results Past 24 Hours Test 02/03/18 05:38 02/03/18 09:00 02/03/18 09:18 Range/Units Prothrombin Time 20.6 9.0-12.0 SECONDS Prothromb Time International Ratio 2.0 0.9-1.1 Arterial Blood pH 7.37 7.35-7.45 Arterial Blood Partial Pressure CO2 63 35-46 mmHg Arterial Blood Partial Pressure O2 71 80-95 mm/Hg Arterial Blood HCO3 35 19-24 mmol/L Arterial Blood Oxygen Saturation 93.1 90-95 % Arterial Blood Base Excess 8.0 -9-1.8 mEq/L Arterial Blood Gas Delivery 2L [place] Test POS POS Bedside Glucose 113 70-90 mg/dl
--- NOTE | 2018-02-03 10:50 | Progress Note ---
Progress Note Date of Service Feb 03, 2018. Progress Note Stat portable chest x-ray reviewed all CHEST ONE VIEW PORTABLE 02/03/2018 FINDINGS: Unchanging pneumonitis left lung base. Mild stable cardiomegaly. Bipolar cardiac pacemaker. Lungs otherwise appear clear. IMPRESSION: Small unchanging parenchymal infiltrate left base. Mild stable cardiomegaly. Chest x-ray unchanged from prior patient already completed antibiotic course No further antibiotic treatment indicated Monitor clinically
[2018-02-03] MEDS: IPRATROPIUM BROMIDE NEB SOLN 0.02% 2.5 ML VIAL INH SCH ×4 (11:22→23:39)
[2018-02-03] MEDS: LEVALBUTEROL 0.63MG/3 ML NEB INH SCH ×4 (11:22→23:39)
[2018-02-03] MEDS ORDERED: DILTIAZEM HCL 120 MG EXT REL CAP PO ONE (17:19)
[2018-02-03] MEDS ORDERED: FUROSEMIDE 40 MG TAB PO ONE (17:19)
[2018-02-03] MEDS: WARFARIN SOD 1 MG TAB PO SCH (17:35)
[2018-02-03] MEDS: LATANOPROST 0.005% OP SOLN 2.5 ML BTL OPB SCH (21:02)
[2018-02-04] VITALS (13 sets, daily range): BP systolic 109–157; BP diastolic 63–102; PULSE 65–79; TEMP 36.2–36.7; O2SAT 90–98
[2018-02-04] MEDS: IPRATROPIUM BROMIDE NEB SOLN 0.02% 2.5 ML VIAL INH SCH ×6 (04:47→23:11)
[2018-02-04] MEDS: LEVALBUTEROL 0.63MG/3 ML NEB INH SCH ×6 (04:47→23:11)
[2018-02-04] MEDS: LEVOTHYROXINE 100 MCG TAB PO SCH (05:46)
[2018-02-04 06:26] LABS: HEMATOCRIT 38.1 % (37-47); HEMOGLOBIN 12.5 g/dL (12.0-16.0); MEAN CELL VOLUME 96.7 fL (80-100); MEAN CORPUSCULAR HEMOGLOBIN 31.7 pg (25-34); MEAN CORPUSCULAR HGB CONC 32.8 g/dl (32-36); MEAN PLATELET VOLUME 8.8 fL (7.4-10.4); PLATELET COUNT 250 K/uL (130-400); RED CELL DISTRIBUTION WIDTH CV 14.7 % (11.5-14.5); RED CELL DISTRIBUTION WIDTH SD 52.5 fL (36.4-46.3); WHITE BLOOD COUNT 6.43 K/uL (4.8-10.8)
[2018-02-04 06:46] LABS: CREATININE 1.12 mg/dl (0.60-1.20); POTASSIUM 4.1 mmol/L (3.5-5.1)
[2018-02-04] MEDS: ATORVASTATIN 40 MG TAB PO SCH (08:24)
[2018-02-04] MEDS: METOPROLOL SUCC 50MG EXT REL TAB PO SCH (08:24)
[2018-02-04] MEDS: FUROSEMIDE 40 MG TAB PO SCH (08:25)
[2018-02-04] MEDS: DILTIAZEM HCL 120 MG EXT REL CAP PO SCH (08:25)
[2018-02-04] MEDS: POTASSIUM CHLORIDE 20 MEQ TABCR PO SCH (08:28)
--- NOTE | 2018-02-04 16:06 | Progress Note ---
Internal Med Progress Note Date of Service: Feb 04, 2018. Provider Documentation: SUBJECTIVE: Awake and alert today No evidence of respiratory distress, conversing On 2 L oxygen via nasal cannula with adequate oxygenation No evidence of hypoxia No arrhythmia on telemetry Patient will be transferred to medical floor OBJECTIVE: Vital Signs-as noted below Exam: GEN:Obese , no sign of distress , flat affect , no apparent sign of distress HEENT: sclera non icteric HEART: regular S1/S2 LUNGS: diminished breath sound , no wheeze or rales noted ABD: obese /soft, non-tender, non-distended, EXTREMITY: + 2 bilat lower lower ext edema , with chronic venous stasis changes NEURO: forgetfulness /baseline dementia ? no focal neurological deficit, oriented to place and person only Lab data as noted below. ASSESSMENT & PLAN: CONFUSION /METABOLIC ENCEPHALOPATHY : Possible secondary to respiratory failure hypoxia and hypercapnia-CO2 retention associated with obstructive sleep apnea mental status improved to baseline after BiPAP therapy Awake and alert, conversing tolerating diet well Denies of any chest pain or shortness of breath, no cough no wheeze Stable to be transferred to medical floor ACUTE ON CHRONIC HYPOXEMIC /HYPERCAPNIC RESPIRATORY FAILURE Respiratory status improved after BiPAP Patient will continue with supplemental oxygen Order for CPAP at night worsening of respiratory failure yesterday-possible secondary to CO2 retention pt desaturated to upper 80's while sleeping ( suggestive of DEONDRE ) Improved with BiPAP Continue respiratory support CHRONIC A FIB : -rate controlled with Diltiazem and Toprol. On Coumadin, INR therapeutic LEFT KNEE PAIN secondary to severe OA- Status post a left knee steroid injection by orthopedics Will benefit with skilled facility/rehab and continued PT OT CHRONIC DIASTOLIC HEART FAILURE : compensated On Lasix HYPOTHYROIDISM : cont levothyroxine SEVERE AMBULATORY DYSFUNCTION unable to transfer or change position without assistance needs continued PT/OT /supportive care at a skilled facility then transition to [employer] rep care Not safe to return home without 24-hour care and support In past Coumadin pt and her continues to insist on going home then requiring admission in few hours due to fall multiple discussions with pt and her in past admission regarding safety issue office of aging involved Full Code DVT PROPHYLAXIS Coumadin DISPOSITION -uncertain at this time. office of aging involved due to concern for safety issues Vital Signs: Date Time Temp Pulse Resp B/P (MAP) Pulse Ox O2 Delivery O2 Flow Rate FiO2 02/04/18 15:34 77 20 97 Nasal Cannula 2.0 02/04/18 14:25 36.7 65 20 133/92 (106) 95 02/04/18 11:17 36.6 68 20 125/63 (83) 98 Nasal Cannula 2.0 02/04/18 11:13 72 20 98 Nasal Cannula 2.0 02/04/18 08:01 109/65 (80) 02/04/18 08:00 Nasal Cannula 3.0 02/04/18 07:48 36.5 79 20 140/68 (92) 97 Nasal Cannula 3.0 02/04/18 07:10 66 22 95 Nasal Cannula 2.0 02/04/18 04:47 68 14 95 Nasal Cannula 2.0 02/03/18 23:58 37.0 68 22 100/59 (73) 96 2.0 02/03/18 23:41 65 17 95 Nasal Cannula 2.0 02/03/18 21:06 90 22 117/72 (87) 94 2.0 02/03/18 20:00 92 Room Air 3.0 02/03/18 19:37 36.8 94 19 97/80 (86) 91 Room Air 02/03/18 19:36 83 18 96 Nasal Cannula 3.0 02/03/18 18:37 94 165/79 (107) 02/03/18 16:17 91 168/87 (114) Lab Results: Results Past 24 Hours Test 02/04/18 05:55 Range/Units White Blood Count 6.43 4.8-10.8 K/uL Red Blood Count 3.94 4.2-5.4 M/uL Hemoglobin 12.5 12.0-16.0 g/dL Hematocrit 38.1 37-47 % Mean Corpuscular Volume 96.7 80-100 fL Mean Corpuscular Hemoglobin 31.7 25-34 pg Mean Corpuscular Hemoglobin Concent 32.8 32-36 g/dl RDW Standard Deviation 52.5 36.4-46.3 fL RDW Coefficient of Variation 14.7 11.5-14.5 % Platelet Count 250 130-400 K/uL Mean Platelet Volume 8.8 7.4-10.4 fL Sodium Level 137 136-145 mmol/L Potassium Level 4.1 3.5-5.1 mmol/L Chloride Level 95 98-107 mmol/L Carbon Dioxide Level 36 21-32 mmol/L Anion Gap 6.0 3-11 mmol/L Blood Urea Nitrogen 13 7-18 mg/dl Creatinine 1.12 0.60-1.20 mg/dl Est Creatinine Clear Calc Drug Dose 43.6 ml/min Estimated GFR () 51.9 Estimated GFR (Non- 44.8 BUN/Creatinine Ratio 11.6 10-20 Random Glucose 94 70-99 mg/dl Calcium Level 9.0 8.5-10.1 mg/dl
[2018-02-04] MEDS: WARFARIN SOD 1 MG TAB PO SCH (17:06)
[2018-02-04] MEDS: LATANOPROST 0.005% OP SOLN 2.5 ML BTL OPB SCH (20:41)
[2018-02-04] MEDS: MICONAZOLE NITRATE POWDER 43 GM EXT PRN (20:44)
[2018-02-05] VITALS (8 sets, daily range): BP systolic 126–138; BP diastolic 81–84; PULSE 65–83; TEMP 36.3–36.5; O2SAT 88–98
[2018-02-05] MEDS: IPRATROPIUM BROMIDE NEB SOLN 0.02% 2.5 ML VIAL INH SCH ×6 (04:09→23:39)
[2018-02-05] MEDS: LEVALBUTEROL 0.63MG/3 ML NEB INH SCH ×6 (04:09→23:39)
[2018-02-05] MEDS: LEVOTHYROXINE 100 MCG TAB PO SCH (05:01)
[2018-02-05 06:35] LABS: INR 2.1 (0.9-1.1)
[2018-02-05] MEDS: POTASSIUM CHLORIDE 20 MEQ TABCR PO SCH (08:56)
[2018-02-05] MEDS: ATORVASTATIN 40 MG TAB PO SCH (08:57)
[2018-02-05] MEDS: FUROSEMIDE 40 MG TAB PO SCH (08:57)
[2018-02-05] MEDS: DILTIAZEM HCL 120 MG EXT REL CAP PO SCH (08:57)
[2018-02-05] MEDS: METOPROLOL SUCC 50MG EXT REL TAB PO SCH (08:57)
[2018-02-05] MEDS: WARFARIN SOD 1 MG TAB PO SCH (17:12)
[2018-02-05] MEDS: LATANOPROST 0.005% OP SOLN 2.5 ML BTL OPB SCH (21:00)
--- NOTE | 2018-02-05 22:31 | Progress Note ---
Internal Med Progress Note Date of Service: Feb 05, 2018. Provider Documentation: SUBJECTIVE: Awake and alert today No evidence of respiratory distress, conversing On 2 L oxygen via nasal cannula with adequate oxygenation No evidence of hypoxia No arrhythmia on telemetry Patient will be transferred to medical floor OBJECTIVE: Vital Signs-as noted below Exam: GEN:Obese , no sign of distress , flat affect , no apparent sign of distress HEENT: sclera non icteric HEART: regular S1/S2 LUNGS: diminished breath sound , no wheeze or rales noted ABD: obese /soft, non-tender, non-distended, EXTREMITY: + 2 bilat lower lower ext edema , with chronic venous stasis changes NEURO: forgetfulness /baseline dementia ? no focal neurological deficit, oriented to place and person only Lab data as noted below. ASSESSMENT & PLAN: CONFUSION /METABOLIC ENCEPHALOPATHY : Resolved Possible secondary to respiratory failure hypoxia and hypercapnia-CO2 retention associated with obstructive sleep apnea mental status improved to baseline after BiPAP therapy Awake and alert, conversing tolerating diet well Denies of any chest pain or shortness of breath, no cough no wheeze ACUTE ON CHRONIC HYPOXEMIC /HYPERCAPNIC RESPIRATORY FAILURE Respiratory status improved to baseline after BiPAP Patient will continue with supplemental oxygen Order for CPAP at night patient has been refusing Continue respiratory support CHRONIC A FIB : -rate controlled with Diltiazem and Toprol. 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 office of aging involved due to concern for safety issues Vital Signs: Date Time Temp Pulse Resp B/P (MAP) Pulse Ox O2 Delivery O2 Flow Rate FiO2 02/06/18 16:00 100 Nasal Cannula 2.0 02/06/18 15:37 36.6 73 22 143/76 (98) 96 2.0 02/06/18 15:15 58 18 90 Nasal Cannula 2.0 02/06/18 11:16 76 84 Room Air 02/06/18 08:00 100 Nasal Cannula 2.0 02/06/18 07:27 36.3 74 22 135/68 (90) 100 Nasal Cannula 2.0 02/06/18 06:54 81 18 94 Nasal Cannula 2.0 02/06/18 03:39 73 20 92 Nasal Cannula 2.0 02/06/18 00:08 36.8 73 18 144/79 (100) 95 2.0 02/05/18 23:40 78 18 98 Nasal Cannula 2.0 02/05/18 20:00 Nasal Cannula 2.0 BiPAP Lab Results: Results Past 24 Hours Test 02/06/18 06:33 Range/Units Prothrombin Time 20.8 9.0-12.0 SECONDS Prothromb Time International Ratio 2.0 0.9-1.1
[2018-02-06] VITALS (12 sets, daily range): BP systolic 119–144; BP diastolic 60–79; PULSE 58–83; TEMP 36.3–36.8; O2SAT 84–100
[2018-02-06] MEDS: LEVALBUTEROL 0.63MG/3 ML NEB INH SCH ×6 (03:39→23:05)
[2018-02-06] MEDS: IPRATROPIUM BROMIDE NEB SOLN 0.02% 2.5 ML VIAL INH SCH ×6 (03:39→23:05)
[2018-02-06] MEDS: LEVOTHYROXINE 100 MCG TAB PO SCH (05:47)
[2018-02-06] MEDS: POTASSIUM CHLORIDE 20 MEQ TABCR PO SCH (08:17)
[2018-02-06] MEDS: FUROSEMIDE 40 MG TAB PO SCH (08:18)
[2018-02-06] MEDS: ATORVASTATIN 40 MG TAB PO SCH (08:18)
[2018-02-06] MEDS: METOPROLOL SUCC 50MG EXT REL TAB PO SCH (08:18)
[2018-02-06] MEDS: DILTIAZEM HCL 120 MG EXT REL CAP PO SCH (08:18)
[2018-02-06] MEDS: WARFARIN SOD 1 MG TAB PO SCH (15:50)
--- NOTE | 2018-02-06 17:50 | Progress Note ---
Internal Med Progress Note Date of Service: Feb 06, 2018. Provider Documentation: SUBJECTIVE: No new complain Appears to be feeling fine On 2 L oxygen via nasal cannula Not interested to involved in conversation Very keen on continued watching television No evidence of respiratory distress Vitals remain stable OBJECTIVE: Vital Signs-as noted below Exam: GEN:Obese , no sign of distress , flat affect , no apparent sign of distress HEENT: sclera non icteric HEART: regular S1/S2 LUNGS: diminished breath sound , no wheeze or rales noted ABD: obese /soft, non-tender, non-distended, EXTREMITY: + 2 bilat lower lower ext edema , with chronic venous stasis changes NEURO: forgetfulness /baseline dementia ? no focal neurological deficit, oriented to place and person only Lab data as noted below. ASSESSMENT & PLAN: CONFUSION /METABOLIC ENCEPHALOPATHY : Mental status improved to baseline Patient is oriented to person, able to involved in conversation, but then repeats the same question Patient developed worsening of mental status, lethargy due to respiratory failure hypoxia and hypercapnia-CO2 retention associated with obstructive sleep apnea mental status improved to baseline after BiPAP therapy Awake and alert, conversing tolerating diet well ACUTE ON CHRONIC HYPOXEMIC /HYPERCAPNIC RESPIRATORY FAILURE Respiratory status improved to baseline Patient will continue with supplemental oxygen Order for CPAP at night patient has been refusing Says "they are trying to give me too much oxygen, which is bad for you" CHRONIC A FIB : -rate controlled with Diltiazem and Toprol. 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 office of aging involved due to concern for safety issues Vital Signs: Date Time Temp Pulse Resp B/P (MAP) Pulse Ox O2 Delivery O2 Flow Rate FiO2 02/06/18 16:00 100 Nasal Cannula 2.0 02/06/18 15:37 36.6 73 22 143/76 (98) 96 2.0 02/06/18 15:15 58 18 90 Nasal Cannula 2.0 02/06/18 11:16 76 84 Room Air 02/06/18 08:00 100 Nasal Cannula 2.0 02/06/18 07:27 36.3 74 22 135/68 (90) 100 Nasal Cannula 2.0 02/06/18 06:54 81 18 94 Nasal Cannula 2.0 02/06/18 03:39 73 20 92 Nasal Cannula 2.0 02/06/18 00:08 36.8 73 18 144/79 (100) 95 2.0 02/05/18 23:40 78 18 98 Nasal Cannula 2.0 02/05/18 20:00 Nasal Cannula 2.0 BiPAP Lab Results: Results Past 24 Hours Test 02/06/18 06:33 Range/Units Prothrombin Time 20.8 9.0-12.0 SECONDS Prothromb Time International Ratio 2.0 0.9-1.1
[2018-02-06] MEDS: LATANOPROST 0.005% OP SOLN 2.5 ML BTL OPB SCH (20:13)
[2018-02-07] VITALS (11 sets, daily range): BP systolic 128–141; BP diastolic 66–81; PULSE 61–97; TEMP 36.5–36.8; O2SAT 81–98
[2018-02-07] MEDS: IPRATROPIUM BROMIDE NEB SOLN 0.02% 2.5 ML VIAL INH SCH ×6 (03:12→23:06)
[2018-02-07] MEDS: LEVALBUTEROL 0.63MG/3 ML NEB INH SCH ×6 (03:12→23:06)
[2018-02-07] MEDS: LEVOTHYROXINE 100 MCG TAB PO SCH (06:17)
[2018-02-07] MEDS: METOPROLOL SUCC 50MG EXT REL TAB PO SCH (08:13)
[2018-02-07] MEDS: ATORVASTATIN 40 MG TAB PO SCH (08:13)
[2018-02-07] MEDS: POTASSIUM CHLORIDE 20 MEQ TABCR PO SCH (08:14)
[2018-02-07] MEDS: FUROSEMIDE 40 MG TAB PO SCH (08:14)
[2018-02-07] MEDS: DILTIAZEM HCL 120 MG EXT REL CAP PO SCH (08:14)
[2018-02-07 08:30] LABS: INR 2.1 (0.9-1.1)
[2018-02-07] MEDS ORDERED: TROLAMINE SALICYLATE 10% CRM 255 APPLN/85 GM TUBE EXT PRN (14:00)
[2018-02-07] MEDS ORDERED: NURSING VERBAL MED ORDER ONE (14:00)
[2018-02-07] MEDS: WARFARIN SOD 1 MG TAB PO SCH (15:21)
--- NOTE | 2018-02-07 18:24 | Progress Note ---
Internal Med Progress Note Date of Service: Feb 07, 2018. Provider Documentation: SUBJECTIVE: Sitting up on the bed Still having audible wheeze Denies of any discomfort Has been visiting, complaining that nursing and physical therapy has not take patient out of bed and made her walk Wants her to have daily physical therapy, and force her to walk so that she can return home; is counseled, the patient is getting physical therapy and she is able to participate as much as she could She will benefit from rehab Not safe to return home without 24 Hour care OBJECTIVE: Vital Signs-as noted below Exam: GEN:Obese , no sign of distress , flat affect , no apparent sign of distress HEENT: sclera non icteric HEART: regular S1/S2 LUNGS: diminished breath sound , no wheeze or rales noted ABD: obese /soft, non-tender, non-distended, EXTREMITY: + 2 bilat lower lower ext edema , with chronic venous stasis changes NEURO: forgetfulness /baseline dementia ? no focal neurological deficit, oriented to place and person only Lab data as noted below. ASSESSMENT & PLAN: CONFUSION /METABOLIC ENCEPHALOPATHY : Mental status improved to baseline Patient is oriented to person, able to involved in conversation, but then repeats the same question Patient developed worsening of mental status, lethargy due to respiratory failure hypoxia and hypercapnia-CO2 retention associated with obstructive sleep apnea mental status improved to baseline after BiPAP therapy Awake and alert, Significant short-term memory loss/dementia No sign of agitation or behavioral issue ACUTE ON CHRONIC HYPOXEMIC /HYPERCAPNIC RESPIRATORY FAILURE Respiratory status improved to baseline Patient will continue with supplemental oxygen Order for CPAP at night patient has been refusing Says "they are trying to give me too much oxygen, which is bad for you" also tells the nursing multiple time, patient should not be on oxygen all the time That is making the patient dependent on oxygen Trial to wean oxygen to 1 L by nasal cannula patient desaturated to 80% Patient will need continued 24 /7 oxygen 2 L via nasal cannula and CPAP at night for advanced COPD/chronic hypercapnic respiratory failure/DEONDRE CHRONIC A FIB : -rate controlled with Diltiazem and Toprol. On Coumadin, INR therapeutic LEFT KNEE PAIN secondary to severe OA- Status post a left knee steroid injection by orthopedics Will benefit with skilled facility/rehab and continued PT OT CHRONIC DIASTOLIC HEART FAILURE : compensated On Lasix HYPOTHYROIDISM : cont levothyroxine SEVERE AMBULATORY DYSFUNCTION unable to transfer or change position without assistance needs continued PT/OT /supportive care at a skilled facility then transition to emt intermediate care Not safe to return home without 24-hour care and support In past Coumadin pt and her continues to insist on going home then requiring admission in few hours due to fall multiple discussions with pt and her in past admission regarding safety issue office of aging involved Full Code DVT PROPHYLAXIS Coumadin DISPOSITION -uncertain at this time. office of aging involved due to concern for safety issues Vital Signs: Date Time Temp Pulse Resp B/P (MAP) Pulse Ox O2 Delivery O2 Flow Rate FiO2 02/08/18 16:00 Nasal Cannula 2.0 02/08/18 11:25 58 20 91 Nasal Cannula 2.0 02/08/18 07:30 Nasal Cannula 2.0 02/08/18 07:13 65 20 92 Nasal Cannula 2.0 02/08/18 07:13 36.5 73 18 123/76 (92) 94 Nasal Cannula 2.0 02/08/18 03:09 76 20 94 Nasal Cannula 2.0 02/08/18 00:05 Nasal Cannula 2.0 02/07/18 23:21 36.8 78 18 141/66 (91) 94 Nasal Cannula 2.0 02/07/18 23:08 87 20 94 Nasal Cannula 2.0 Lab Results:
[2018-02-07] MEDS: LATANOPROST 0.005% OP SOLN 2.5 ML BTL OPB SCH (20:22)
[2018-02-08] MEDS: IPRATROPIUM BROMIDE NEB SOLN 0.02% 2.5 ML VIAL INH SCH ×4 (03:08→19:25)
[2018-02-08 03:09] VITALS: PULSE 76; O2SAT 94
[2018-02-08] MEDS: LEVALBUTEROL 0.63MG/3 ML NEB INH SCH ×4 (03:09→19:25)
[2018-02-08] MEDS: LEVOTHYROXINE 100 MCG TAB PO SCH (06:06)
[2018-02-08 07:13] VITALS: BP 123/76; PULSE 65; PULSE 73; TEMP 36.5; O2SAT 92; O2SAT 94
[2018-02-08] MEDS: METOPROLOL SUCC 50MG EXT REL TAB PO SCH (09:16)
[2018-02-08] MEDS: ATORVASTATIN 40 MG TAB PO SCH (09:16)
[2018-02-08] MEDS: POTASSIUM CHLORIDE 20 MEQ TABCR PO SCH (09:16)
[2018-02-08] MEDS: FUROSEMIDE 40 MG TAB PO SCH (09:17)
[2018-02-08] MEDS: DILTIAZEM HCL 120 MG EXT REL CAP PO SCH (09:17)
[2018-02-08 11:25] VITALS: PULSE 58; O2SAT 91
[2018-02-08] MEDS: WARFARIN SOD 1 MG TAB PO SCH (15:17)
[2018-02-08 19:29] VITALS: PULSE 74; O2SAT 96
[2018-02-08] MEDS: LATANOPROST 0.005% OP SOLN 2.5 ML BTL OPB SCH (21:18)
[2018-02-08] MEDS ORDERED: MAGNESIUM HYDROXIDE SUSP 30 ML UDC ONE (22:07)
[2018-02-08 23:10] VITALS: BP 156/66; PULSE 82; TEMP 36.7; O2SAT 96
[2018-02-09] MEDS: LEVOTHYROXINE 100 MCG TAB PO SCH (06:08)
[2018-02-09 06:35] LABS: INR 1.6 (0.9-1.1)
[2018-02-09] MEDS: IPRATROPIUM BROMIDE NEB SOLN 0.02% 2.5 ML VIAL INH SCH ×2 (06:46→21:16)
[2018-02-09] MEDS: LEVALBUTEROL 0.63MG/3 ML NEB INH SCH ×2 (06:46→21:16)
[2018-02-09 07:08] VITALS: BP 109/54; PULSE 76; TEMP 36.6; O2SAT 98
[2018-02-09] MEDS: DILTIAZEM HCL 120 MG EXT REL CAP PO SCH (07:37)
[2018-02-09] MEDS: FUROSEMIDE 40 MG TAB PO SCH (07:37)
[2018-02-09] MEDS: METOPROLOL SUCC 50MG EXT REL TAB PO SCH (07:37)
[2018-02-09] MEDS: POTASSIUM CHLORIDE 20 MEQ TABCR PO SCH (07:37)
[2018-02-09] MEDS: ATORVASTATIN 40 MG TAB PO SCH (07:38)
[2018-02-09 08:00] VITALS: O2SAT 98
[2018-02-09 15:22] VITALS: BP 141/78; PULSE 65; TEMP 36.5; O2SAT 95
[2018-02-09] MEDS: WARFARIN SOD 1 MG TAB PO SCH (16:08)
[2018-02-09 17:48] VITALS: O2SAT 95
--- NOTE | 2018-02-09 18:49 | Progress Note ---
Internal Med Progress Note Date of Service: Feb 08, 2018. Provider Documentation: PT SEEN ON 02/08/18 APPROX 2 PM SUBJECTIVE: lengthy discussion with repeats same complaint over and over again how nursing and physical therapy is not doing their job by walking the patient Request for physical therapy every day Is counseled patient is getting physical therapy as she requires Functional status and ambulating is not the area to ambulate or walk independently OBJECTIVE: Vital Signs-as noted below Exam: GEN:Obese , no sign of distress , flat affect , no apparent sign of distress HEENT: sclera non icteric HEART: regular S1/S2 LUNGS: diminished breath sound , no wheeze or rales noted ABD: obese /soft, non-tender, non-distended, EXTREMITY: + 2 bilat lower lower ext edema , with chronic venous stasis changes NEURO: forgetfulness /baseline dementia ? no focal neurological deficit, oriented to place and person only Lab data as noted below. ASSESSMENT & PLAN: CONFUSION /METABOLIC ENCEPHALOPATHY : Mental status improved to baseline Patient is oriented to person, able to involved in conversation, but then repeats the same question Patient developed worsening of mental status, lethargy due to respiratory failure hypoxia and hypercapnia-CO2 retention associated with obstructive sleep apnea mental status improved to baseline after BiPAP therapy Awake and alert, Significant short-term memory loss/dementia No sign of agitation or behavioral issue ACUTE ON CHRONIC HYPOXEMIC /HYPERCAPNIC RESPIRATORY FAILURE Respiratory status improved to baseline Patient will continue with supplemental oxygen Order for CPAP at night patient has been refusing Says "they are trying to give me too much oxygen, which is bad for you" also tells the nursing multiple time, patient should not be on oxygen all the time That is making the patient dependent on oxygen Trial to wean oxygen to 1 L by nasal cannula patient desaturated to 80% Patient will need continued 24 /7 oxygen 2 L via nasal cannula and CPAP at night for advanced COPD/chronic hypercapnic respiratory failure/DEONDRE CHRONIC A FIB : -rate controlled with Diltiazem and Toprol. On Coumadin, INR therapeutic LEFT KNEE PAIN secondary to severe OA- Status post a left knee steroid injection by orthopedics Will benefit with skilled facility/rehab and continued PT OT CHRONIC DIASTOLIC HEART FAILURE : compensated On Lasix HYPOTHYROIDISM : cont levothyroxine SEVERE AMBULATORY DYSFUNCTION unable to transfer or change position without assistance needs continued PT/OT /supportive care at a skilled facility then transition to [facility] care Not safe to return home without 24-hour care and support In past Coumadin pt and her continues to insist on going home then requiring admission in few hours due to fall multiple discussions with pt and her in past admission regarding safety issue office of aging involved Full Code DVT PROPHYLAXIS Coumadin DISPOSITION -uncertain at this time. office of aging involved due to concern for safety issues Vital Signs: Date Time Temp Pulse Resp B/P (MAP) Pulse Ox O2 Delivery O2 Flow Rate FiO2 02/10/18 08:00 95 Nasal Cannula 2.0 02/10/18 06:48 36.6 68 18 118/56 (76) 95 2.0 02/10/18 00:01 Nasal Cannula 2.0 02/09/18 23:04 36.6 73 20 145/77 (99) 90 Nasal Cannula 2.0 02/09/18 21:16 67 20 91 Nasal Cannula 2.0 02/09/18 17:48 95 Nasal Cannula 2.0 02/09/18 15:22 36.5 65 20 141/78 (99) 95 Nasal Cannula 2.0 Lab Results:
--- NOTE | 2018-02-09 18:50 | Progress Note ---
Internal Med Progress Note Date of Service: Feb 09, 2018. Provider Documentation: SUBJECTIVE: Sitting in chair More pleasant today Minimum please Denies any cough, shortness of breath no fever chills OBJECTIVE: Vital Signs-as noted below Exam: GEN:Obese , no sign of distress , flat affect , no apparent sign of distress HEENT: sclera non icteric HEART: regular S1/S2 LUNGS: diminished breath sound , no wheeze or rales noted ABD: obese /soft, non-tender, non-distended, EXTREMITY: + 2 bilat lower lower ext edema , with chronic venous stasis changes NEURO: forgetfulness /baseline dementia ? no focal neurological deficit, oriented to place and person only Lab data as noted below. ASSESSMENT & PLAN: CONFUSION /METABOLIC ENCEPHALOPATHY : Mental status improved to baseline Patient is oriented to person, able to involved in conversation, but then repeats the same question Patient developed worsening of mental status, lethargy due to respiratory failure hypoxia and hypercapnia-CO2 retention associated with obstructive sleep apnea mental status improved to baseline after BiPAP therapy Awake and alert, Significant short-term memory loss/dementia No sign of agitation or behavioral issue ACUTE ON CHRONIC HYPOXEMIC /HYPERCAPNIC RESPIRATORY FAILURE Respiratory status improved to baseline Patient will continue with supplemental oxygen Order for CPAP at night patient has been refusing Says "they are trying to give me too much oxygen, which is bad for you" also tells the nursing multiple time, patient should not be on oxygen all the time That is making the patient dependent on oxygen Trial to wean oxygen to 1 L by nasal cannula patient desaturated to 80% Patient will need continued 24 /7 oxygen 2 L via nasal cannula and CPAP at night for advanced COPD/chronic hypercapnic respiratory failure/DEONDRE CHRONIC A FIB : -rate controlled with Diltiazem and Toprol. On Coumadin, INR therapeutic LEFT KNEE PAIN secondary to severe OA- Status post a left knee steroid injection by orthopedics Will benefit with skilled facility/rehab and continued PT OT CHRONIC DIASTOLIC HEART FAILURE : compensated On Lasix HYPOTHYROIDISM : cont levothyroxine SEVERE AMBULATORY DYSFUNCTION unable to transfer or change position without assistance needs continued PT/OT /supportive care at a skilled facility then transition to exterminator helper care Not safe to return home without 24-hour care and support In past Coumadin pt and her continues to insist on going home then requiring admission in few hours due to fall multiple discussions with pt and her in past admission regarding safety issue office of aging involved Full Code DVT PROPHYLAXIS Coumadin DISPOSITION -uncertain at this time. office of aging involved due to concern for safety issues Vital Signs: Date Time Temp Pulse Resp B/P (MAP) Pulse Ox O2 Delivery O2 Flow Rate FiO2 02/10/18 08:00 95 Nasal Cannula 2.0 02/10/18 06:48 36.6 68 18 118/56 (76) 95 2.0 02/10/18 00:01 Nasal Cannula 2.0 02/09/18 23:04 36.6 73 20 145/77 (99) 90 Nasal Cannula 2.0 02/09/18 21:16 67 20 91 Nasal Cannula 2.0 02/09/18 17:48 95 Nasal Cannula 2.0 02/09/18 15:22 36.5 65 20 141/78 (99) 95 Nasal Cannula 2.0 Lab Results:
[2018-02-09 21:16] VITALS: PULSE 67; O2SAT 91
[2018-02-09] MEDS: LATANOPROST 0.005% OP SOLN 2.5 ML BTL OPB SCH (21:41)
[2018-02-09 23:04] VITALS: BP 145/77; PULSE 73; TEMP 36.6; O2SAT 90
[2018-02-10] MEDS: LEVOTHYROXINE 100 MCG TAB PO SCH (06:37)
[2018-02-10 06:48] VITALS: BP 118/56; PULSE 68; TEMP 36.6; O2SAT 95
[2018-02-10] MEDS: IPRATROPIUM BROMIDE NEB SOLN 0.02% 2.5 ML VIAL INH SCH ×2 (07:01→18:59)
[2018-02-10] MEDS: LEVALBUTEROL 0.63MG/3 ML NEB INH SCH ×2 (07:01→18:59)
[2018-02-10 08:00] VITALS: O2SAT 95
[2018-02-10] MEDS: FUROSEMIDE 40 MG TAB PO SCH (08:15)
[2018-02-10] MEDS: POTASSIUM CHLORIDE 20 MEQ TABCR PO SCH (08:15)
[2018-02-10] MEDS: ATORVASTATIN 40 MG TAB PO SCH (08:16)
[2018-02-10] MEDS: METOPROLOL SUCC 50MG EXT REL TAB PO SCH (08:16)
[2018-02-10] MEDS: DILTIAZEM HCL 120 MG EXT REL CAP PO SCH (08:17)
[2018-02-10] MEDS: WARFARIN SOD 1 MG TAB PO SCH (15:53)
--- NOTE | 2018-02-10 16:23 | Progress Note ---
Subjective Date of Service: Feb 10, 2018. Subjective Pt evaluation today including: conversation w/ patient, physical exam, lab review, review of studies, review of inpatient medication list Saw/examined the patient in room 250 She's doing okay, denies any symptoms Denies shortness of breath, +wheezing Problem List Medical Problems: (1) Altered mental status Status: Acute (2) Atrial fibrillation Status: Acute (3) Change in mental status Status: Acute (4) CO2 retention Status: Acute (5) Exacerbation of asthma Status: Acute (6) Respiratory distress Status: Acute (7) UTI (urinary tract infection) Status: Acute Review of Systems +underlying dementia, cannot obtain accurate ROS Medications Current Inpatient Medications Medications (Trade) Dose Ordered Sig/Mak Route Start Time Stop Time Status Last Admin Dose Admin Promethazine HCl 12.5 mg/Sodium Chloride 50.5 ml @ 204 mls/hr Q6H PRN IV 12/15/17 17:15 02/13/18 17:13 Bisacodyl (Dulcolax Supp) 10 mg DAILY PRN [place] 12/15/17 18:00 02/13/18 17:58 Latanoprost (Xalatan Oph Soln) 1 drops HS OPB 12/15/17 21:00 02/13/18 20:58 02/09/18 21:41 1 DROPS Levothyroxine Sodium (Synthroid Tab) 100 mcg DAILYBB PO 12/16/17 06:30 02/14/18 06:28 02/10/18 06:37 100 MCG Magnesium Hydroxide (Milk Of Magnesia Susp) 30 ml DAILY PRN PO 12/15/17 18:00 02/13/18 17:58 02/08/18 22:19 30 ML Sodium Biphosphate/ Sodium Phosphate (Fleet Enema) 118 ml DAILY PRN [place] 12/15/17 18:00 02/13/18 17:58 Atorvastatin Calcium (Lipitor Tab) 40 mg DAILY PO 01/30/18 11:30 02/14/18 08:58 02/10/18 08:16 40 MG Diltiazem HCl (TIAzac CAP) 120 mg DAILY PO 01/30/18 11:30 02/14/18 08:58 02/10/18 08:17 120 MG Furosemide (Lasix Tab) 40 mg QAM PO 01/30/18 11:30 02/26/18 08:59 02/10/18 08:15 40 MG Potassium Chloride (Klor-Con Tab) 20 meq DAILY PO 01/30/18 11:30 02/14/18 08:58 02/10/18 08:15 20 MEQ Miconazole Nitrate (Desenex Powder) 1 appln PRN PRN EXT 01/30/18 22:15 03/01/18 22:14 02/04/18 20:44 1 APPLN Warfarin Sodium (Coumadin Tab) 1 mg DAILY@16 PO 02/01/18 16:00 03/03/18 15:59 02/10/18 15:53 1 MG Metoprolol Succinate (Toprol Xl Tab) 50 mg QAM PO 02/03/18 21:00 02/21/18 08:59 02/10/18 08:16 50 MG Trolamine Salicylate (Myoflex Cream) 1 appln UD PRN EXT 02/07/18 14:00 03/09/18 13:59 02/07/18 15:21 1 APPLN Ipratropium [place] (Atrovent 0.02% 0.5MG/2.5ML Neb) 0.5 mg BIDR INH 02/08/18 20:00 03/05/18 11:59 02/09/18 21:16 0.5 MG Levalbuterol (Xopenex 0.63 Mg/ 3 Ml Neb) 0.63 mg BIDR INH 02/08/18 20:00 03/05/18 11:59 02/09/18 21:16 0.63 MG Objective Vital Signs Date Time Temp Pulse Resp B/P (MAP) Pulse Ox O2 Delivery O2 Flow Rate FiO2 02/10/18 08:00 95 Nasal Cannula 2.0 02/10/18 06:48 36.6 68 18 118/56 (76) 95 2.0 02/10/18 00:01 Nasal Cannula 2.0 02/09/18 23:04 36.6 73 20 145/77 (99) 90 Nasal Cannula 2.0 02/09/18 21:16 67 20 91 Nasal Cannula 2.0 02/09/18 17:48 95 Nasal Cannula 2.0 Physical Exam General Appearance: no apparent distress Respiratory/Chest: no respiratory distress, no accessory muscle use, + wheezing Cardiovascular: regular rate, rhythm, no murmur Extremities: + swelling (+2 pitting edema b/l LE), + pertinent finding Assessment and Plan 02/10 - has had multiple issues with breathing - required bipap earlier this week - plan for now is to continue Lasix 40mg daily - give Coumadin, monitor INR - oxygen as needed, breathing treatments as needed 02/02 - INR is 2.0 - continue Coumadin 1mg daily - Lasix 40mg daily, potassium 20meq daily - continue FLORENCIA stockings - continue nebs as needed - placement issue 02/01 - continue Coumadin 1mg; INR is 2.0, check in AM - continue Lasix 40mg 01/31 - increase Coumadin to 1mg daily - continue Lasix 40mg daily - FLORENCIA stockings in place - nebs as needed 01/30 - today's plan is to change her morning medications to around 11:30AM; comes to the hospital around 11AM and she is more compliant when he is around. He can also witness patient getting all the medications that she needs. - increase Lasix to 40mg - continue Coumadin 0.5mg - check potassium, magnesium and INR in AM (01/31) 01/29 - Coumadin 0.5mg today, recheck INR in AM - giving Lasix 40mg today due to shortness of breath and LE edema 01/28 - hold Coumadin - Lasix 20mg daily, monitor K 01/27 - hold Coumadin again - will likely need 2mg of Coumadin instead of 3mg - Lasix 20mg daily for now - monitor K 01/26 - saw the patient today - INR is >2; continue Coumadin 3mg and monitor in AM - will give Lasix 20mg daily Acute on Chronic Hypoxic Respiratory Failure - Improved possibly secondary to pneumonia - completed antibiotic course Metabolic Encephalopathy - resolved - underlying dementia, appears to be at baseline Chronic Diastolic HF - will give 40mg of Lasix (01/25); increased from 20mg daily Chronic A. Fib - continue Diltiazem and Toprol - patient is now on Coumadin, INR is 2.2 - will give Coumadin 3mg and recheck INR - has had supratherapeutic INR with 5mg of Coumadin L Knee pain - resolved Hypothyroidism - continue Synthroid Ambulatory Dysfunction - PT/OT - needs SNF discharge DVT ppx - Coumadin FULL CODE
[2018-02-10 16:54] VITALS: BP 128/81; PULSE 79; TEMP 36.5; O2SAT 92
[2018-02-10 18:59] VITALS: PULSE 77; O2SAT 92
[2018-02-10] MEDS: LATANOPROST 0.005% OP SOLN 2.5 ML BTL OPB SCH (20:29)
[2018-02-10 23:21] VITALS: BP 115/64; PULSE 75; TEMP 36.6; O2SAT 97
[2018-02-11] MEDS: LEVOTHYROXINE 100 MCG TAB PO SCH (05:42)
[2018-02-11 06:06] LABS: HEMATOCRIT 38.7 % (37-47); HEMOGLOBIN 12.3 g/dL (12.0-16.0); MEAN CELL VOLUME 96.5 fL (80-100); MEAN CORPUSCULAR HEMOGLOBIN 30.7 pg (25-34); MEAN CORPUSCULAR HGB CONC 31.8 g/dl (32-36); MEAN PLATELET VOLUME 9.9 fL (7.4-10.4); PLATELET COUNT 170 K/uL (130-400); RED CELL DISTRIBUTION WIDTH CV 14.7 % (11.5-14.5); RED CELL DISTRIBUTION WIDTH SD 52.1 fL (36.4-46.3); WHITE BLOOD COUNT 5.74 K/uL (4.8-10.8)
[2018-02-11 06:19] LABS: INR 1.9 (0.9-1.1)
[2018-02-11 06:40] LABS: CALCIUM 9.2 mg/dl (8.5-10.1); CREATININE 0.89 mg/dl (0.60-1.20); POTASSIUM 4.3 mmol/L (3.5-5.1)
[2018-02-11 07:10] VITALS: PULSE 68; O2SAT 97
[2018-02-11] MEDS: LEVALBUTEROL 0.63MG/3 ML NEB INH SCH ×2 (07:10→19:06)
[2018-02-11] MEDS: IPRATROPIUM BROMIDE NEB SOLN 0.02% 2.5 ML VIAL INH SCH ×2 (07:10→19:06)
[2018-02-11 07:26] VITALS: BP 150/71; PULSE 65; TEMP 36.8; O2SAT 97
[2018-02-11] MEDS: ATORVASTATIN 40 MG TAB PO SCH (07:51)
[2018-02-11] MEDS: METOPROLOL SUCC 50MG EXT REL TAB PO SCH (07:51)
[2018-02-11] MEDS: POTASSIUM CHLORIDE 20 MEQ TABCR PO SCH (07:51)
[2018-02-11] MEDS: FUROSEMIDE 40 MG TAB PO SCH (07:51)
[2018-02-11] MEDS: DILTIAZEM HCL 120 MG EXT REL CAP PO SCH (07:51)
[2018-02-11 08:00] VITALS: O2SAT 97
--- NOTE | 2018-02-11 11:11 | Progress Note ---
Subjective Date of Service: Feb 11, 2018. Subjective Pt evaluation today including: conversation w/ patient, physical exam, lab review, review of studies, review of inpatient medication list Saw/examined the patient in room 250 Denies chest pain/shortness of breath Refusing to take his morning medications Problem List Medical Problems: (1) Altered mental status Status: Acute (2) Atrial fibrillation Status: Acute (3) Change in mental status Status: Acute (4) CO2 retention Status: Acute (5) Exacerbation of asthma Status: Acute (6) Respiratory distress Status: Acute (7) UTI (urinary tract infection) Status: Acute Review of Systems Respiratory: No shortness of breath Cardiac: No chest pain Medications Current Inpatient Medications Medications (Trade) Dose Ordered Sig/Mak Route Start Time Stop Time Status Last Admin Dose Admin Promethazine HCl 12.5 mg/Sodium Chloride 50.5 ml @ 204 mls/hr Q6H PRN IV 12/15/17 17:15 02/13/18 17:13 Bisacodyl (Dulcolax Supp) 10 mg DAILY PRN [place] 12/15/17 18:00 02/13/18 17:58 Latanoprost (Xalatan Oph Soln) 1 drops HS OPB 12/15/17 21:00 02/13/18 20:58 02/10/18 20:29 1 DROPS Levothyroxine Sodium (Synthroid Tab) 100 mcg DAILYBB PO 12/16/17 06:30 02/14/18 06:28 02/11/18 05:42 100 MCG Magnesium Hydroxide (Milk Of Magnesia Susp) 30 ml DAILY PRN PO 12/15/17 18:00 02/13/18 17:58 02/08/18 22:19 30 ML Sodium Biphosphate/ Sodium Phosphate (Fleet Enema) 118 ml DAILY PRN [place] 12/15/17 18:00 02/13/18 17:58 Atorvastatin Calcium (Lipitor Tab) 40 mg DAILY PO 01/30/18 11:30 02/14/18 08:58 02/11/18 07:51 40 MG Diltiazem HCl (TIAzac CAP) 120 mg DAILY PO 01/30/18 11:30 02/14/18 08:58 02/11/18 07:51 120 MG Furosemide (Lasix Tab) 40 mg QAM PO 01/30/18 11:30 02/26/18 08:59 02/11/18 07:51 40 MG Potassium Chloride (Klor-Con Tab) 20 meq DAILY PO 01/30/18 11:30 02/14/18 08:58 02/11/18 07:51 20 MEQ Miconazole Nitrate (Desenex Powder) 1 appln PRN PRN EXT 01/30/18 22:15 03/01/18 22:14 02/04/18 20:44 1 APPLN Warfarin Sodium (Coumadin Tab) 1 mg DAILY@16 PO 02/01/18 16:00 03/03/18 15:59 02/10/18 15:53 1 MG Metoprolol Succinate (Toprol Xl Tab) 50 mg QAM PO 02/03/18 21:00 02/21/18 08:59 02/11/18 07:51 50 MG Trolamine Salicylate (Myoflex Cream) 1 appln UD PRN EXT 02/07/18 14:00 03/09/18 13:59 02/07/18 15:21 1 APPLN Ipratropium [place] (Atrovent 0.02% 0.5MG/2.5ML Neb) 0.5 mg BIDR INH 02/08/18 20:00 03/05/18 11:59 02/11/18 07:10 0.5 MG Levalbuterol (Xopenex 0.63 Mg/ 3 Ml Neb) 0.63 mg BIDR INH 02/08/18 20:00 03/05/18 11:59 02/11/18 07:10 0.63 MG Objective Vital Signs Date Time Temp Pulse Resp B/P (MAP) Pulse Ox O2 Delivery O2 Flow Rate FiO2 02/11/18 08:00 97 Nasal Cannula 2.0 02/11/18 07:26 36.8 65 20 150/71 (97) 97 Nasal Cannula 4.0 02/11/18 07:10 68 18 97 Nasal Cannula 2.0 02/11/18 00:01 Nasal Cannula 2.0 02/10/18 23:21 36.6 75 20 115/64 (81) 97 4.0 02/10/18 18:59 77 20 92 Nasal Cannula 2.0 02/10/18 16:54 36.5 79 20 128/81 (97) 92 Nasal Cannula 2.0 02/10/18 16:00 Nasal Cannula 2.0 Physical Exam General Appearance: no apparent distress Respiratory/Chest: + wheezing Cardiovascular: regular rate, rhythm Extremities: + swelling (+1-2 pitting edema b/l LE) Laboratory Results Last 24 Hours Test 02/11/18 05:29 White Blood Count 5.74 K/uL Red Blood Count 4.01 M/uL Hemoglobin 12.3 g/dL Hematocrit 38.7 % Mean Corpuscular Volume 96.5 fL Mean Corpuscular Hemoglobin 30.7 pg Mean Corpuscular Hemoglobin Concent 31.8 g/dl RDW Standard Deviation 52.1 fL RDW Coefficient of Variation 14.7 % Platelet Count 170 K/uL Mean Platelet Volume 9.9 fL Prothrombin Time 19.7 SECONDS Prothromb Time International Ratio 1.9 Sodium Level 136 mmol/L Potassium Level 4.3 mmol/L Chloride Level 98 mmol/L Carbon Dioxide Level 34 mmol/L Anion Gap 4.0 mmol/L Blood Urea Nitrogen 16 mg/dl Creatinine 0.89 mg/dl Est Creatinine Clear Calc Drug Dose 54.9 ml/min Estimated GFR () 68.5 Estimated GFR (Non- 59.1 BUN/Creatinine Ratio 17.7 Random Glucose 92 mg/dl Calcium Level 9.2 mg/dl Magnesium Level 2.2 mg/dl Assessment and Plan 02/11 - patient is refusing morning medications - continues to wheeze - INR is up to 1.9, we'll try Coumadin later today, recheck INR in AM - to come in and help convince patient to take Lasix and other medications 02/10 - has had multiple issues with breathing - required bipap earlier this week - plan for now is to continue Lasix 40mg daily - give Coumadin, monitor INR - oxygen as needed, breathing treatments as needed 02/02 - INR is 2.0 - continue Coumadin 1mg daily - Lasix 40mg daily, potassium 20meq daily - continue FLORENCIA stockings - continue nebs as needed - placement issue 02/01 - continue Coumadin 1mg; INR is 2.0, check in AM - continue Lasix 40mg 01/31 - increase Coumadin to 1mg daily - continue Lasix 40mg daily - FLORENCIA stockings in place - nebs as needed 01/30 - today's plan is to change her morning medications to around 11:30AM; comes to the hospital around 11AM and she is more compliant when he is around. He can also witness patient getting all the medications that she needs. - increase Lasix to 40mg - continue Coumadin 0.5mg - check potassium, magnesium and INR in AM (01/31) 01/29 - Coumadin 0.5mg today, recheck INR in AM - giving Lasix 40mg today due to shortness of breath and LE edema 01/28 - hold Coumadin - Lasix 20mg daily, monitor K 01/27 - hold Coumadin again - will likely need 2mg of Coumadin instead of 3mg - Lasix 20mg daily for now - monitor K 01/26 - saw the patient today - INR is >2; continue Coumadin 3mg and monitor in AM - will give Lasix 20mg daily Acute on Chronic Hypoxic Respiratory Failure - Improved possibly secondary to pneumonia - completed antibiotic course Metabolic Encephalopathy - resolved - underlying dementia, appears to be at baseline Chronic Diastolic HF - will give 40mg of Lasix (01/25); increased from 20mg daily Chronic A. Fib - continue Diltiazem and Toprol - patient is now on Coumadin, INR is 2.2 - will give Coumadin 3mg and recheck INR - has had supratherapeutic INR with 5mg of Coumadin L Knee pain - resolved Hypothyroidism - continue Synthroid Ambulatory Dysfunction - PT/OT - needs SNF discharge DVT ppx - Coumadin FULL CODE
[2018-02-11 15:15] VITALS: BP 138/94; PULSE 66; TEMP 36.6; O2SAT 96
[2018-02-11] MEDS: WARFARIN SOD 1 MG TAB PO SCH (15:40)
[2018-02-11 19:09] VITALS: PULSE 57; O2SAT 93
[2018-02-11] MEDS: LATANOPROST 0.005% OP SOLN 2.5 ML BTL OPB SCH (20:23)
[2018-02-11 22:59] VITALS: BP 145/92; PULSE 89; TEMP 36.7; O2SAT 92
[2018-02-12] VITALS (7 sets, daily range): BP systolic 117–148; BP diastolic 64–86; PULSE 68–113; TEMP 36.5–36.6; O2SAT 91–97
[2018-02-12] MEDS: LEVOTHYROXINE 100 MCG TAB PO SCH (06:14)
[2018-02-12] MEDS: LEVALBUTEROL 0.63MG/3 ML NEB INH SCH ×2 (07:16→19:07)
[2018-02-12] MEDS: IPRATROPIUM BROMIDE NEB SOLN 0.02% 2.5 ML VIAL INH SCH ×2 (07:16→19:07)
[2018-02-12] MEDS: METOPROLOL SUCC 50MG EXT REL TAB PO SCH (08:25)
[2018-02-12] MEDS: FUROSEMIDE 40 MG TAB PO SCH (08:25)
[2018-02-12] MEDS: POTASSIUM CHLORIDE 20 MEQ TABCR PO SCH (08:26)
[2018-02-12] MEDS: DILTIAZEM HCL 120 MG EXT REL CAP PO SCH (08:26)
[2018-02-12] MEDS: ATORVASTATIN 40 MG TAB PO SCH (08:26)
[2018-02-12 12:12] LABS: INR 1.7 (0.9-1.1)
[2018-02-12 12:56] LABS: CALCIUM 9.2 mg/dl (8.5-10.1); CREATININE 0.87 mg/dl (0.60-1.20); POTASSIUM 4.2 mmol/L (3.5-5.1)
--- NOTE | 2018-02-12 15:31 | Progress Note ---
Subjective Date of Service: Feb 12, 2018. Subjective Pt evaluation today including: conversation w/ patient, physical exam, lab review, review of studies, review of inpatient medication list Saw/examined the patient in room 250 She did not want to take her medications this morning She is more agitated today; underlying dementia Repeated asking why she needs all of her medications even after being answered Problem List Medical Problems: (1) Altered mental status Status: Acute (2) Atrial fibrillation Status: Acute (3) Change in mental status Status: Acute (4) CO2 retention Status: Acute (5) Exacerbation of asthma Status: Acute (6) Respiratory distress Status: Acute (7) UTI (urinary tract infection) Status: Acute Medications Current Inpatient Medications Medications (Trade) Dose Ordered Sig/Mak Route Start Time Stop Time Status Last Admin Dose Admin Promethazine HCl 12.5 mg/Sodium Chloride 50.5 ml @ 204 mls/hr Q6H PRN IV 12/15/17 17:15 02/13/18 17:13 Bisacodyl (Dulcolax Supp) 10 mg DAILY PRN [place] 12/15/17 18:00 02/13/18 17:58 Latanoprost (Xalatan Oph Soln) 1 drops HS OPB 12/15/17 21:00 02/13/18 20:58 02/11/18 20:23 1 DROPS Levothyroxine Sodium (Synthroid Tab) 100 mcg DAILYBB PO 12/16/17 06:30 02/14/18 06:28 02/12/18 06:14 100 MCG Magnesium Hydroxide (Milk Of Magnesia Susp) 30 ml DAILY PRN PO 12/15/17 18:00 02/13/18 17:58 02/08/18 22:19 30 ML Sodium Biphosphate/ Sodium Phosphate (Fleet Enema) 118 ml DAILY PRN [place] 12/15/17 18:00 02/13/18 17:58 Atorvastatin Calcium (Lipitor Tab) 40 mg DAILY PO 01/30/18 11:30 02/14/18 08:58 02/12/18 08:26 40 MG Diltiazem HCl (TIAzac CAP) 120 mg DAILY PO 01/30/18 11:30 02/14/18 08:58 02/12/18 08:26 120 MG Furosemide (Lasix Tab) 40 mg QAM PO 01/30/18 11:30 02/26/18 08:59 02/12/18 08:25 40 MG Potassium Chloride (Klor-Con Tab) 20 meq DAILY PO 01/30/18 11:30 02/14/18 08:58 02/12/18 08:26 20 MEQ Miconazole Nitrate (Desenex Powder) 1 appln PRN PRN EXT 01/30/18 22:15 03/01/18 22:14 02/04/18 20:44 1 APPLN Warfarin Sodium (Coumadin Tab) 1 mg DAILY@16 PO 02/01/18 16:00 03/03/18 15:59 02/11/18 15:40 1 MG Metoprolol Succinate (Toprol Xl Tab) 50 mg QAM PO 02/03/18 21:00 02/21/18 08:59 02/12/18 08:25 50 MG Trolamine Salicylate (Myoflex Cream) 1 appln UD PRN EXT 02/07/18 14:00 03/09/18 13:59 02/07/18 15:21 1 APPLN Ipratropium [place] (Atrovent 0.02% 0.5MG/2.5ML Neb) 0.5 mg BIDR INH 02/08/18 20:00 03/05/18 11:59 02/12/18 07:16 0.5 MG Levalbuterol (Xopenex 0.63 Mg/ 3 Ml Neb) 0.63 mg BIDR INH 02/08/18 20:00 03/05/18 11:59 02/12/18 07:16 0.63 MG Objective Vital Signs Date Time Temp Pulse Resp B/P (MAP) Pulse Ox O2 Delivery O2 Flow Rate FiO2 02/12/18 08:00 97 Nasal Cannula 2.0 02/12/18 07:37 36.5 69 18 148/86 (106) 97 2.0 02/12/18 07:16 113 16 97 Nasal Cannula 2.5 02/12/18 00:01 Nasal Cannula 2.0 02/11/18 22:59 36.7 89 18 145/92 (109) 92 Nasal Cannula 2.5 02/11/18 19:09 57 16 93 Nasal Cannula 2.5 02/11/18 16:00 Nasal Cannula 2.0 Physical Exam General Appearance: no apparent distress Respiratory/Chest: no respiratory distress, no accessory muscle use, + decreased breath sounds Cardiovascular: regular rate, rhythm Extremities: + swelling (+2 pitting edema b/l LE), + pertinent finding Laboratory Results Last 24 Hours Test 02/12/18 11:12 Prothrombin Time 17.7 SECONDS Prothromb Time International Ratio 1.7 Sodium Level 139 mmol/L Potassium Level 4.2 mmol/L Chloride Level 98 mmol/L Carbon Dioxide Level 37 mmol/L Anion Gap 4.0 mmol/L Blood Urea Nitrogen 16 mg/dl Creatinine 0.87 mg/dl Est Creatinine Clear Calc Drug Dose 56.2 ml/min Estimated GFR () 70.4 Estimated GFR (Non- 60.7 BUN/Creatinine Ratio 18.2 Random Glucose 124 mg/dl Calcium Level 9.2 mg/dl Magnesium Level 2.2 mg/dl Assessment and Plan 02/12 - continue Lasix - increase Coumadin to 2mg and recheck INR in AM 02/11 - patient is refusing morning medications - continues to wheeze - INR is up to 1.9, we'll try Coumadin later today, recheck INR in AM - to come in and help convince patient to take Lasix and other medications 02/10 - has had multiple issues with breathing - required bipap earlier this week - plan for now is to continue Lasix 40mg daily - give Coumadin, monitor INR - oxygen as needed, breathing treatments as needed 02/02 - INR is 2.0 - continue Coumadin 1mg daily - Lasix 40mg daily, potassium 20meq daily - continue FLORENCIA stockings - continue nebs as needed - placement issue 02/01 - continue Coumadin 1mg; INR is 2.0, check in AM - continue Lasix 40mg 01/31 - increase Coumadin to 1mg daily - continue Lasix 40mg daily - FLORENCIA stockings in place - nebs as needed 01/30 - today's plan is to change her morning medications to around 11:30AM; comes to the hospital around 11AM and she is more compliant when he is around. He can also witness patient getting all the medications that she needs. - increase Lasix to 40mg - continue Coumadin 0.5mg - check potassium, magnesium and INR in AM (01/31) 01/29 - Coumadin 0.5mg today, recheck INR in AM - giving Lasix 40mg today due to shortness of breath and LE edema 01/28 - hold Coumadin - Lasix 20mg daily, monitor K 01/27 - hold Coumadin again - will likely need 2mg of Coumadin instead of 3mg - Lasix 20mg daily for now - monitor K 01/26 - saw the patient today - INR is >2; continue Coumadin 3mg and monitor in AM - will give Lasix 20mg daily Acute on Chronic Hypoxic Respiratory Failure - Improved possibly secondary to pneumonia - completed antibiotic course Metabolic Encephalopathy - resolved - underlying dementia, appears to be at baseline Chronic Diastolic HF - will give 40mg of Lasix (01/25); increased from 20mg daily Chronic A. Fib - continue Diltiazem and Toprol - patient is now on Coumadin, INR is 2.2 - will give Coumadin 3mg and recheck INR - has had supratherapeutic INR with 5mg of Coumadin L Knee pain - resolved Hypothyroidism - continue Synthroid Ambulatory Dysfunction - PT/OT - needs SNF discharge DVT ppx - Coumadin FULL CODE
[2018-02-12] MEDS: WARFARIN SOD 2 MG TAB PO SCH (16:50)
[2018-02-12] MEDS: LATANOPROST 0.005% OP SOLN 2.5 ML BTL OPB SCH (20:41)
[2018-02-13] MEDS: LEVOTHYROXINE 100 MCG TAB PO SCH (06:09)
[2018-02-13 07:09] VITALS: PULSE 85; O2SAT 93
[2018-02-13] MEDS: IPRATROPIUM BROMIDE NEB SOLN 0.02% 2.5 ML VIAL INH SCH ×2 (07:09→18:56)
[2018-02-13] MEDS: LEVALBUTEROL 0.63MG/3 ML NEB INH SCH ×2 (07:09→18:56)
[2018-02-13 07:33] VITALS: BP 134/75; PULSE 75; TEMP 36.6; O2SAT 92
[2018-02-13] MEDS: POTASSIUM CHLORIDE 20 MEQ TABCR PO SCH (08:44)
[2018-02-13] MEDS: FUROSEMIDE 40 MG TAB PO SCH (08:45)
[2018-02-13] MEDS: ATORVASTATIN 40 MG TAB PO SCH (08:45)
[2018-02-13] MEDS: DILTIAZEM HCL 120 MG EXT REL CAP PO SCH (08:45)
[2018-02-13] MEDS: METOPROLOL SUCC 50MG EXT REL TAB PO SCH (08:45)
--- NOTE | 2018-02-13 10:59 | Progress Note ---
Subjective Date of Service: Feb 13, 2018. Subjective Pt evaluation today including: conversation w/ patient, physical exam, lab review, review of studies, review of inpatient medication list Saw/examined the patient in room 250 +underlying dementia She has no complaints at this time Problem List Medical Problems: (1) Altered mental status Status: Acute (2) Atrial fibrillation Status: Acute (3) Change in mental status Status: Acute (4) CO2 retention Status: Acute (5) Exacerbation of asthma Status: Acute (6) Respiratory distress Status: Acute (7) UTI (urinary tract infection) Status: Acute Medications Current Inpatient Medications Medications (Trade) Dose Ordered Sig/Mak Route Start Time Stop Time Status Last Admin Dose Admin Promethazine HCl 12.5 mg/Sodium Chloride 50.5 ml @ 204 mls/hr Q6H PRN IV 12/15/17 17:15 02/13/18 17:13 Bisacodyl (Dulcolax Supp) 10 mg DAILY PRN [place] 12/15/17 18:00 02/13/18 17:58 Latanoprost (Xalatan Oph Soln) 1 drops HS OPB 12/15/17 21:00 02/13/18 20:58 02/12/18 20:41 1 DROPS Levothyroxine Sodium (Synthroid Tab) 100 mcg DAILYBB PO 12/16/17 06:30 02/14/18 06:28 02/13/18 06:09 100 MCG Magnesium Hydroxide (Milk Of Magnesia Susp) 30 ml DAILY PRN PO 12/15/17 18:00 02/13/18 17:58 02/08/18 22:19 30 ML Sodium Biphosphate/ Sodium Phosphate (Fleet Enema) 118 ml DAILY PRN [place] 12/15/17 18:00 02/13/18 17:58 Atorvastatin Calcium (Lipitor Tab) 40 mg DAILY PO 01/30/18 11:30 02/14/18 08:58 02/12/18 08:26 40 MG Diltiazem HCl (TIAzac CAP) 120 mg DAILY PO 01/30/18 11:30 02/14/18 08:58 02/12/18 08:26 120 MG Furosemide (Lasix Tab) 40 mg QAM PO 01/30/18 11:30 02/26/18 08:59 02/12/18 08:25 40 MG Potassium Chloride (Klor-Con Tab) 20 meq DAILY PO 01/30/18 11:30 02/14/18 08:58 02/12/18 08:26 20 MEQ Miconazole Nitrate (Desenex Powder) 1 appln PRN PRN EXT 01/30/18 22:15 03/01/18 22:14 02/04/18 20:44 1 APPLN Metoprolol Succinate (Toprol Xl Tab) 50 mg QAM PO 02/03/18 21:00 02/21/18 08:59 02/12/18 08:25 50 MG Trolamine Salicylate (Myoflex Cream) 1 appln UD PRN EXT 02/07/18 14:00 03/09/18 13:59 02/07/18 15:21 1 APPLN Ipratropium [place] (Atrovent 0.02% 0.5MG/2.5ML Neb) 0.5 mg BIDR INH 02/08/18 20:00 03/05/18 11:59 02/13/18 07:09 0.5 MG Levalbuterol (Xopenex 0.63 Mg/ 3 Ml Neb) 0.63 mg BIDR INH 02/08/18 20:00 03/05/18 11:59 02/13/18 07:09 0.63 MG Warfarin Sodium (Coumadin Tab) 2 mg DAILY@16 PO 02/12/18 16:00 03/03/18 15:59 02/12/18 16:50 2 MG Objective Vital Signs Date Time Temp Pulse Resp B/P (MAP) Pulse Ox O2 Delivery O2 Flow Rate FiO2 02/13/18 08:00 Nasal Cannula 2.0 02/13/18 07:33 36.6 75 20 134/75 (94) 92 Nasal Cannula 2.0 02/13/18 07:09 85 16 93 Nasal Cannula 2.0 02/13/18 00:02 Nasal Cannula 2.0 02/12/18 22:33 36.5 68 16 120/64 (82) 92 Nasal Cannula 2.0 02/12/18 19:07 69 16 91 Nasal Cannula 2.0 02/12/18 16:00 92 Nasal Cannula 2.5 50 02/12/18 15:30 36.6 71 18 117/74 (88) 95 Nasal Cannula 2.0 Physical Exam General Appearance: no apparent distress, + obese, + pertinent finding ( underlying dementia) Respiratory/Chest: no respiratory distress, no accessory muscle use, + wheezing Cardiovascular: regular rate, rhythm, no murmur Extremities: + swelling (+2 pitting edema b/l LE), + pertinent finding Laboratory Results Last 24 Hours Test 02/12/18 11:12 02/13/18 04:44 Prothrombin Time 17.7 SECONDS Prothromb Time International Ratio 1.7 Sodium Level 139 mmol/L Potassium Level 4.2 mmol/L Chloride Level 98 mmol/L Carbon Dioxide Level 37 mmol/L Anion Gap 4.0 mmol/L Blood Urea Nitrogen 16 mg/dl Creatinine 0.87 mg/dl Est Creatinine Clear Calc Drug Dose 56.2 ml/min Estimated GFR () 70.4 Estimated GFR (Non- 60.7 BUN/Creatinine Ratio 18.2 Random Glucose 124 mg/dl Calcium Level 9.2 mg/dl Magnesium Level 2.2 mg/dl Assessment and Plan 02/13 - patient is refusing morning labs, unsure of what her INR is, likely will need a dose of 1mg and 2mg alternating for Coumadin - should continue Lasix and TEDs 02/12 - continue Lasix - increase Coumadin to 2mg and recheck INR in AM 02/11 - patient is refusing morning medications - continues to wheeze - INR is up to 1.9, we'll try Coumadin later today, recheck INR in AM - to come in and help convince patient to take Lasix and other medications 02/10 - has had multiple issues with breathing - required bipap earlier this week - plan for now is to continue Lasix 40mg daily - give Coumadin, monitor INR - oxygen as needed, breathing treatments as needed 02/02 - INR is 2.0 - continue Coumadin 1mg daily - Lasix 40mg daily, potassium 20meq daily - continue FLORENCIA stockings - continue nebs as needed - placement issue 02/01 - continue Coumadin 1mg; INR is 2.0, check in AM - continue Lasix 40mg 01/31 - increase Coumadin to 1mg daily - continue Lasix 40mg daily - FLORENCIA stockings in place - nebs as needed 01/30 - today's plan is to change her morning medications to around 11:30AM; comes to the hospital around 11AM and she is more compliant when he is around. He can also witness patient getting all the medications that she needs. - increase Lasix to 40mg - continue Coumadin 0.5mg - check potassium, magnesium and INR in AM (01/31) 01/29 - Coumadin 0.5mg today, recheck INR in AM - giving Lasix 40mg today due to shortness of breath and LE edema 01/28 - hold Coumadin - Lasix 20mg daily, monitor K 01/27 - hold Coumadin again - will likely need 2mg of Coumadin instead of 3mg - Lasix 20mg daily for now - monitor K 01/26 - saw the patient today - INR is >2; continue Coumadin 3mg and monitor in AM - will give Lasix 20mg daily Acute on Chronic Hypoxic Respiratory Failure - Improved possibly secondary to pneumonia - completed antibiotic course Metabolic Encephalopathy - resolved - underlying dementia, appears to be at baseline Chronic Diastolic HF - will give 40mg of Lasix (01/25); increased from 20mg daily Chronic A. Fib - continue Diltiazem and Toprol - patient is now on Coumadin, INR is 2.2 - will give Coumadin 3mg and recheck INR - has had supratherapeutic INR with 5mg of Coumadin L Knee pain - resolved Hypothyroidism - continue Synthroid Ambulatory Dysfunction - PT/OT - needs SNF discharge DVT ppx - Coumadin FULL CODE
[2018-02-13 15:07] VITALS: BP 138/71; PULSE 95; TEMP 36.5; O2SAT 96
[2018-02-13] MEDS: WARFARIN SOD 2 MG TAB PO SCH (16:00)
[2018-02-13 18:57] VITALS: PULSE 100; O2SAT 98
[2018-02-13 22:17] VITALS: BP 140/71; PULSE 97; TEMP 36.4; O2SAT 97
[2018-02-14 06:00] VITALS: BP 123/56; PULSE 80
[2018-02-14] MEDS: METOPROLOL SUCC 50MG EXT REL TAB PO SCH (06:48)
[2018-02-14] MEDS: LEVOTHYROXINE 100 MCG TAB PO SCH (06:48)
[2018-02-14] MEDS: FUROSEMIDE 40 MG TAB PO SCH (06:49)
[2018-02-14 06:58] VITALS: PULSE 81; O2SAT 95
[2018-02-14] MEDS: LEVALBUTEROL 0.63MG/3 ML NEB INH SCH ×2 (06:58→19:45)
[2018-02-14] MEDS: IPRATROPIUM BROMIDE NEB SOLN 0.02% 2.5 ML VIAL INH SCH ×2 (06:58→19:45)
[2018-02-14 07:14] VITALS: BP 120/65; PULSE 91; TEMP 36.4; O2SAT 95
[2018-02-14 08:00] VITALS: O2SAT 95
[2018-02-14] MEDS: MICONAZOLE NITRATE POWDER 43 GM EXT PRN (08:00)
[2018-02-14] MEDS: DILTIAZEM HCL 120 MG EXT REL CAP PO SCH (08:22)
[2018-02-14] MEDS: ATORVASTATIN 40 MG TAB PO SCH (08:22)
[2018-02-14] MEDS: POTASSIUM CHLORIDE 20 MEQ TABCR PO SCH (08:22)
--- NOTE | 2018-02-14 12:43 | Progress Note ---
Subjective Date of Service: Feb 14, 2018. Subjective Pt evaluation today including: conversation w/ patient, physical exam, lab review, review of studies, review of inpatient medication list Saw/examined the patient in room 250 She's +demented, she did take her medications this AM Denies any symptoms Problem List Medical Problems: (1) Altered mental status Status: Acute (2) Atrial fibrillation Status: Acute (3) Change in mental status Status: Acute (4) CO2 retention Status: Acute (5) Exacerbation of asthma Status: Acute (6) Respiratory distress Status: Acute (7) UTI (urinary tract infection) Status: Acute Review of Systems underlying dementia Medications Current Inpatient Medications Medications (Trade) Dose Ordered Sig/Mak Route Start Time Stop Time Status Last Admin Dose Admin Levothyroxine Sodium (Synthroid Tab) 100 mcg DAILYBB PO 12/16/17 06:30 02/28/18 06:29 02/14/18 06:48 100 MCG Atorvastatin Calcium (Lipitor Tab) 40 mg DAILY PO 01/30/18 11:30 02/28/18 11:29 02/14/18 08:22 40 MG Diltiazem HCl (TIAzac CAP) 120 mg DAILY PO 01/30/18 11:30 02/28/18 11:29 02/14/18 08:22 120 MG Furosemide (Lasix Tab) 40 mg QAM PO 01/30/18 11:30 02/26/18 08:59 02/14/18 06:49 40 MG Potassium Chloride (Klor-Con Tab) 20 meq DAILY PO 01/30/18 11:30 02/28/18 11:29 02/14/18 08:22 20 MEQ Miconazole Nitrate (Desenex Powder) 1 appln PRN PRN EXT 01/30/18 22:15 03/01/18 22:14 02/04/18 20:44 1 APPLN Metoprolol Succinate (Toprol Xl Tab) 50 mg QAM PO 02/03/18 21:00 02/21/18 08:59 02/14/18 06:48 50 MG Trolamine Salicylate (Myoflex Cream) 1 appln UD PRN EXT 02/07/18 14:00 03/09/18 13:59 02/07/18 15:21 1 APPLN Ipratropium [place] (Atrovent 0.02% 0.5MG/2.5ML Neb) 0.5 mg BIDR INH 02/08/18 20:00 03/05/18 11:59 02/14/18 06:58 0.5 MG Levalbuterol (Xopenex 0.63 Mg/ 3 Ml Neb) 0.63 mg BIDR INH 02/08/18 20:00 03/05/18 11:59 02/14/18 06:58 0.63 MG Warfarin Sodium (Coumadin Tab) 2 mg DAILY@16 PO 02/12/18 16:00 03/03/18 15:59 02/12/18 16:50 2 MG Objective Vital Signs Date Time Temp Pulse Resp B/P (MAP) Pulse Ox O2 Delivery O2 Flow Rate FiO2 02/14/18 08:00 95 Nasal Cannula 2.0 02/14/18 07:14 36.4 91 20 120/65 (83) 95 Nasal Cannula 2.0 02/14/18 06:58 81 18 95 Nasal Cannula 2.5 02/14/18 06:00 80 18 123/56 (78) Nasal Cannula 02/14/18 00:01 Nasal Cannula 2.0 02/13/18 22:17 36.4 97 20 140/71 (94) 97 Nasal Cannula 2.0 02/13/18 18:57 100 18 98 Nasal Cannula 2.0 02/13/18 16:00 Nasal Cannula 2.0 02/13/18 15:07 36.5 95 18 138/71 (93) 96 Nasal Cannula 2.0 Physical Exam General Appearance: no apparent distress, + pertinent finding (+pleasantly demented) Respiratory/Chest: no respiratory distress, no accessory muscle use, + wheezing Cardiovascular: regular rate, rhythm Extremities: + pedal edema (+2 pitting edema b/l LE), + swelling Laboratory Results Last 24 Hours Test 02/14/18 04:44 Assessment and Plan 02/14 - continue with Lasix 40mg daily with potassium supplements; FLORENCIA stockings in the evening - continue Coumadin 2mg, check INR 02/13 - patient is refusing morning labs, unsure of what her INR is, likely will need a dose of 1mg and 2mg alternating for Coumadin - should continue Lasix and TEDs 02/12 - continue Lasix - increase Coumadin to 2mg and recheck INR in AM 02/11 - patient is refusing morning medications - continues to wheeze - INR is up to 1.9, we'll try Coumadin later today, recheck INR in AM - to come in and help convince patient to take Lasix and other medications 02/10 - has had multiple issues with breathing - required bipap earlier this week - plan for now is to continue Lasix 40mg daily - give Coumadin, monitor INR - oxygen as needed, breathing treatments as needed 02/02 - INR is 2.0 - continue Coumadin 1mg daily - Lasix 40mg daily, potassium 20meq daily - continue FLORENCIA stockings - continue nebs as needed - placement issue 02/01 - continue Coumadin 1mg; INR is 2.0, check in AM - continue Lasix 40mg 01/31 - increase Coumadin to 1mg daily - continue Lasix 40mg daily - FLORENCIA stockings in place - nebs as needed 01/30 - today's plan is to change her morning medications to around 11:30AM; comes to the hospital around 11AM and she is more compliant when he is around. He can also witness patient getting all the medications that she needs. - increase Lasix to 40mg - continue Coumadin 0.5mg - check potassium, magnesium and INR in AM (01/31) 01/29 - Coumadin 0.5mg today, recheck INR in AM - giving Lasix 40mg today due to shortness of breath and LE edema 01/28 - hold Coumadin - Lasix 20mg daily, monitor K 01/27 - hold Coumadin again - will likely need 2mg of Coumadin instead of 3mg - Lasix 20mg daily for now - monitor K 01/26 - saw the patient today - INR is >2; continue Coumadin 3mg and monitor in AM - will give Lasix 20mg daily Acute on Chronic Hypoxic Respiratory Failure - Improved possibly secondary to pneumonia - completed antibiotic course Metabolic Encephalopathy - resolved - underlying dementia, appears to be at baseline Chronic Diastolic HF - will give 40mg of Lasix (01/25); increased from 20mg daily Chronic A. Fib - continue Diltiazem and Toprol - patient is now on Coumadin, INR is 2.2 - will give Coumadin 3mg and recheck INR - has had supratherapeutic INR with 5mg of Coumadin L Knee pain - resolved Hypothyroidism - continue Synthroid Ambulatory Dysfunction - PT/OT - needs SNF discharge DVT ppx - Coumadin FULL CODE
[2018-02-14 13:32] LABS: HEMATOCRIT 38.7 % (37-47); HEMOGLOBIN 12.3 g/dL (12.0-16.0); MEAN CELL VOLUME 96.8 fL (80-100); MEAN CORPUSCULAR HEMOGLOBIN 30.8 pg (25-34); MEAN CORPUSCULAR HGB CONC 31.8 g/dl (32-36); MEAN PLATELET VOLUME 8.7 fL (7.4-10.4); PLATELET COUNT 252 K/uL (130-400); RED CELL DISTRIBUTION WIDTH CV 14.7 % (11.5-14.5); RED CELL DISTRIBUTION WIDTH SD 52.2 fL (36.4-46.3)
[2018-02-14 13:54] LABS: INR 2.4 (0.9-1.1)
[2018-02-14 13:57] LABS: CALCIUM 9.3 mg/dl (8.5-10.1); CREATININE 0.89 mg/dl (0.60-1.20); POTASSIUM 4.2 mmol/L (3.5-5.1)
[2018-02-14 15:23] VITALS: BP 127/72; PULSE 78; TEMP 36.7; O2SAT 97
[2018-02-14] MEDS: WARFARIN SOD 2 MG TAB PO SCH (15:58)
[2018-02-14 19:48] VITALS: PULSE 98; O2SAT 93
[2018-02-15] VITALS (8 sets, daily range): BP systolic 103–141; BP diastolic 68–79; PULSE 76–93; TEMP 36.4–36.7; O2SAT 89–96
[2018-02-15] MEDS: LEVOTHYROXINE 100 MCG TAB PO SCH (05:08)
[2018-02-15] MEDS: LEVALBUTEROL 0.63MG/3 ML NEB INH SCH ×2 (07:13→18:56)
[2018-02-15] MEDS: IPRATROPIUM BROMIDE NEB SOLN 0.02% 2.5 ML VIAL INH SCH ×2 (07:13→18:55)
[2018-02-15] MEDS: DILTIAZEM HCL 120 MG EXT REL CAP PO SCH (07:57)
[2018-02-15] MEDS: ATORVASTATIN 40 MG TAB PO SCH (07:57)
[2018-02-15] MEDS: METOPROLOL SUCC 50MG EXT REL TAB PO SCH (07:57)
[2018-02-15] MEDS: FUROSEMIDE 40 MG TAB PO SCH (07:57)
[2018-02-15] MEDS: POTASSIUM CHLORIDE 20 MEQ TABCR PO SCH (07:58)
[2018-02-15] MEDS: WARFARIN SOD 2 MG TAB PO SCH (16:09)
--- NOTE | 2018-02-15 17:05 | Progress Note ---
Subjective Date of Service: Feb 15, 2018. Subjective Pt evaluation today including: conversation w/ patient, physical exam, lab review, review of studies, review of inpatient medication list Saw/examined the patient in room 250 Feeling fine today; underlying dementia No shortness of breath/chest pain Problem List Medical Problems: (1) Altered mental status Status: Acute (2) Atrial fibrillation Status: Acute (3) Change in mental status Status: Acute (4) CO2 retention Status: Acute (5) Exacerbation of asthma Status: Acute (6) Respiratory distress Status: Acute (7) UTI (urinary tract infection) Status: Acute Medications Current Inpatient Medications Medications (Trade) Dose Ordered Sig/Mak Route Start Time Stop Time Status Last Admin Dose Admin Levothyroxine Sodium (Synthroid Tab) 100 mcg DAILYBB PO 12/16/17 06:30 02/28/18 06:29 02/15/18 05:08 100 MCG Atorvastatin Calcium (Lipitor Tab) 40 mg DAILY PO 01/30/18 11:30 02/28/18 11:29 02/15/18 07:57 40 MG Diltiazem HCl (TIAzac CAP) 120 mg DAILY PO 01/30/18 11:30 02/28/18 11:29 02/15/18 07:57 120 MG Furosemide (Lasix Tab) 40 mg QAM PO 01/30/18 11:30 02/26/18 08:59 02/15/18 07:57 40 MG Potassium Chloride (Klor-Con Tab) 20 meq DAILY PO 01/30/18 11:30 02/28/18 11:29 02/15/18 07:58 20 MEQ Miconazole Nitrate (Desenex Powder) 1 appln PRN PRN EXT 01/30/18 22:15 03/01/18 22:14 02/14/18 08:00 1 APPLN Metoprolol Succinate (Toprol Xl Tab) 50 mg QAM PO 02/03/18 21:00 02/21/18 08:59 02/15/18 07:57 50 MG Trolamine Salicylate (Myoflex Cream) 1 appln UD PRN EXT 02/07/18 14:00 03/09/18 13:59 02/07/18 15:21 1 APPLN Ipratropium [place] (Atrovent 0.02% 0.5MG/2.5ML Neb) 0.5 mg BIDR INH 02/08/18 20:00 03/05/18 11:59 02/15/18 07:13 0.5 MG Levalbuterol (Xopenex 0.63 Mg/ 3 Ml Neb) 0.63 mg BIDR INH 02/08/18 20:00 03/05/18 11:59 02/15/18 07:13 0.63 MG Warfarin Sodium (Coumadin Tab) 2 mg DAILY@16 PO 02/12/18 16:00 03/03/18 15:59 02/15/18 16:09 2 MG Objective Vital Signs Date Time Temp Pulse Resp B/P (MAP) Pulse Ox O2 Delivery O2 Flow Rate FiO2 02/15/18 16:00 92 Room Air 02/15/18 15:13 36.6 80 24 103/76 (85) 91 Room Air 02/15/18 12:43 82 22 135/68 (90) 90 Room Air 02/15/18 08:00 Nasal Cannula 2.0 02/15/18 07:14 88 16 89 Room Air 02/15/18 07:03 36.7 93 18 111/71 (84) 90 Nasal Cannula 2.0 02/15/18 00:00 36.4 88 20 115/71 (86) 93 2.0 02/14/18 20:00 Nasal Cannula 2.0 02/14/18 19:48 98 16 93 Room Air Physical Exam General Appearance: no apparent distress, + obese Respiratory/Chest: no respiratory distress, no accessory muscle use, + rhonchi Cardiovascular: regular rate, rhythm, no edema, no murmur Assessment and Plan 02/15 - Lasix 40mg daily + potassium - FLORENCIA stockings - Coumadin 2mg today, INR today is 2.4, will change 1mg in AM - should be on Coumadin 2mg on and 1mg the rest of the days 02/14 - continue with Lasix 40mg daily with potassium supplements; FLORENCIA stockings in the evening - continue Coumadin 2mg, check INR 02/13 - patient is refusing morning labs, unsure of what her INR is, likely will need a dose of 1mg and 2mg alternating for Coumadin - should continue Lasix and TEDs 02/12 - continue Lasix - increase Coumadin to 2mg and recheck INR in AM 02/11 - patient is refusing morning medications - continues to wheeze - INR is up to 1.9, we'll try Coumadin later today, recheck INR in AM - to come in and help convince patient to take Lasix and other medications 02/10 - has had multiple issues with breathing - required bipap earlier this week - plan for now is to continue Lasix 40mg daily - give Coumadin, monitor INR - oxygen as needed, breathing treatments as needed 02/02 - INR is 2.0 - continue Coumadin 1mg daily - Lasix 40mg daily, potassium 20meq daily - continue FLORENCIA stockings - continue nebs as needed - placement issue 02/01 - continue Coumadin 1mg; INR is 2.0, check in AM - continue Lasix 40mg 01/31 - increase Coumadin to 1mg daily - continue Lasix 40mg daily - FLORENCIA stockings in place - nebs as needed 01/30 - today's plan is to change her morning medications to around 11:30AM; comes to the hospital around 11AM and she is more compliant when he is around. He can also witness patient getting all the medications that she needs. - increase Lasix to 40mg - continue Coumadin 0.5mg - check potassium, magnesium and INR in AM (01/31) 01/29 - Coumadin 0.5mg today, recheck INR in AM - giving Lasix 40mg today due to shortness of breath and LE edema 01/28 - hold Coumadin - Lasix 20mg daily, monitor K 01/27 - hold Coumadin again - will likely need 2mg of Coumadin instead of 3mg - Lasix 20mg daily for now - monitor K 01/26 - saw the patient today - INR is >2; continue Coumadin 3mg and monitor in AM - will give Lasix 20mg daily Acute on Chronic Hypoxic Respiratory Failure - Improved possibly secondary to pneumonia - completed antibiotic course Metabolic Encephalopathy - resolved - underlying dementia, appears to be at baseline Chronic Diastolic HF - will give 40mg of Lasix (01/25); increased from 20mg daily Chronic A. Fib - continue Diltiazem and Toprol - patient is now on Coumadin, INR is 2.2 - will give Coumadin 3mg and recheck INR - has had supratherapeutic INR with 5mg of Coumadin L Knee pain - resolved Hypothyroidism - continue Synthroid Ambulatory Dysfunction - PT/OT - needs SNF discharge DVT ppx - Coumadin FULL CODE
[2018-02-16] MEDS: LEVOTHYROXINE 100 MCG TAB PO SCH (06:28)
[2018-02-16 07:09] VITALS: PULSE 79; O2SAT 85
[2018-02-16] MEDS: LEVALBUTEROL 0.63MG/3 ML NEB INH SCH ×2 (07:09→19:39)
[2018-02-16] MEDS: IPRATROPIUM BROMIDE NEB SOLN 0.02% 2.5 ML VIAL INH SCH ×2 (07:09→19:39)
[2018-02-16 07:44] VITALS: BP 161/84; PULSE 77; TEMP 36.6; O2SAT 95
[2018-02-16] MEDS: METOPROLOL SUCC 50MG EXT REL TAB PO SCH (08:26)
[2018-02-16] MEDS: FUROSEMIDE 40 MG TAB PO SCH (08:26)
[2018-02-16] MEDS: POTASSIUM CHLORIDE 20 MEQ TABCR PO SCH (08:26)
[2018-02-16] MEDS: DILTIAZEM HCL 120 MG EXT REL CAP PO SCH (08:26)
[2018-02-16] MEDS: ATORVASTATIN 40 MG TAB PO SCH (08:26)
--- NOTE | 2018-02-16 12:41 | Progress Note ---
Subjective Date of Service: Feb 16, 2018. Subjective Pt evaluation today including: conversation w/ patient, physical exam, lab review, review of studies, review of inpatient medication list Saw/examined the patient in room 250 She's doing well, no shortness of breath, denies all symptoms underlying dementia lower extremity edema persists, patient is intermittently compliant with medications Problem List Medical Problems: (1) Altered mental status Status: Acute (2) Atrial fibrillation Status: Acute (3) Change in mental status Status: Acute (4) CO2 retention Status: Acute (5) Exacerbation of asthma Status: Acute (6) Respiratory distress Status: Acute (7) UTI (urinary tract infection) Status: Acute Medications Current Inpatient Medications Medications (Trade) Dose Ordered Sig/Mak Route Start Time Stop Time Status Last Admin Dose Admin Levothyroxine Sodium (Synthroid Tab) 100 mcg DAILYBB PO 12/16/17 06:30 02/28/18 06:29 02/16/18 06:28 100 MCG Atorvastatin Calcium (Lipitor Tab) 40 mg DAILY PO 01/30/18 11:30 02/28/18 11:29 02/16/18 08:26 40 MG Diltiazem HCl (TIAzac CAP) 120 mg DAILY PO 01/30/18 11:30 02/28/18 11:29 02/16/18 08:26 120 MG Furosemide (Lasix Tab) 40 mg QAM PO 01/30/18 11:30 02/26/18 08:59 02/16/18 08:26 40 MG Potassium Chloride (Klor-Con Tab) 20 meq DAILY PO 01/30/18 11:30 02/28/18 11:29 02/16/18 08:26 20 MEQ Miconazole Nitrate (Desenex Powder) 1 appln PRN PRN EXT 01/30/18 22:15 03/01/18 22:14 02/14/18 08:00 1 APPLN Metoprolol Succinate (Toprol Xl Tab) 50 mg QAM PO 02/03/18 21:00 02/21/18 08:59 02/16/18 08:26 50 MG Trolamine Salicylate (Myoflex Cream) 1 appln UD PRN EXT 02/07/18 14:00 03/09/18 13:59 02/07/18 15:21 1 APPLN Ipratropium [place] (Atrovent 0.02% 0.5MG/2.5ML Neb) 0.5 mg BIDR INH 02/08/18 20:00 03/05/18 11:59 02/16/18 07:09 0.5 MG Levalbuterol (Xopenex 0.63 Mg/ 3 Ml Neb) 0.63 mg BIDR INH 02/08/18 20:00 03/05/18 11:59 02/16/18 07:09 0.63 MG Warfarin Sodium (Coumadin Tab) 1 mg DAILY@16 PO 02/16/18 16:00 03/03/18 15:59 Objective Vital Signs Date Time Temp Pulse Resp B/P (MAP) Pulse Ox O2 Delivery O2 Flow Rate FiO2 02/16/18 08:00 Nasal Cannula 2.0 02/16/18 07:44 36.6 77 20 161/84 (109) 95 2.0 02/16/18 07:09 79 16 85 Room Air 02/16/18 00:00 Room Air 02/15/18 22:45 36.7 86 20 141/79 (99) 96 Room Air 02/15/18 18:59 76 16 90 Room Air 02/15/18 16:00 92 Room Air 02/15/18 15:13 36.6 80 24 103/76 (85) 91 Room Air 02/15/18 12:43 82 22 135/68 (90) 90 Room Air Physical Exam General Appearance: no apparent distress, + obese Respiratory/Chest: no respiratory distress, no accessory muscle use, + decreased breath sounds, + wheezing Cardiovascular: regular rate, rhythm Extremities: + pedal edema, + swelling, + pertinent finding (+1-2 pitting edema b/l LE) Assessment and Plan 02/16 - will check INR in AM - again, will likely need Coumadin 2mg on -- and 1mg the rest of the days - continue Lasix, potassium supplements and FLORENCIA stockings 02/15 - Lasix 40mg daily + potassium - FLORENCIA stockings - Coumadin 2mg today, INR today is 2.4, will change 1mg in AM - should be on Coumadin 2mg on -- and 1mg the rest of the days 02/14 - continue with Lasix 40mg daily with potassium supplements; FLORENCIA stockings in the evening - continue Coumadin 2mg, check INR 02/13 - patient is refusing morning labs, unsure of what her INR is, likely will need a dose of 1mg and 2mg alternating for Coumadin - should continue Lasix and TEDs 02/12 - continue Lasix - increase Coumadin to 2mg and recheck INR in AM 02/11 - patient is refusing morning medications - continues to wheeze - INR is up to 1.9, we'll try Coumadin later today, recheck INR in AM - to come in and help convince patient to take Lasix and other medications 02/10 - has had multiple issues with breathing - required bipap earlier this week - plan for now is to continue Lasix 40mg daily - give Coumadin, monitor INR - oxygen as needed, breathing treatments as needed 02/02 - INR is 2.0 - continue Coumadin 1mg daily - Lasix 40mg daily, potassium 20meq daily - continue FLORENCIA stockings - continue nebs as needed - placement issue 02/01 - continue Coumadin 1mg; INR is 2.0, check in AM - continue Lasix 40mg 01/31 - increase Coumadin to 1mg daily - continue Lasix 40mg daily - FLORENCIA stockings in place - nebs as needed 01/30 - today's plan is to change her morning medications to around 11:30AM; comes to the hospital around 11AM and she is more compliant when he is around. He can also witness patient getting all the medications that she needs. - increase Lasix to 40mg - continue Coumadin 0.5mg - check potassium, magnesium and INR in AM (01/31) 01/29 - Coumadin 0.5mg today, recheck INR in AM - giving Lasix 40mg today due to shortness of breath and LE edema 01/28 - hold Coumadin - Lasix 20mg daily, monitor K 01/27 - hold Coumadin again - will likely need 2mg of Coumadin instead of 3mg - Lasix 20mg daily for now - monitor K 01/26 - saw the patient today - INR is >2; continue Coumadin 3mg and monitor in AM - will give Lasix 20mg daily Acute on Chronic Hypoxic Respiratory Failure - Improved possibly secondary to pneumonia - completed antibiotic course Metabolic Encephalopathy - resolved - underlying dementia, appears to be at baseline Chronic Diastolic HF - will give 40mg of Lasix (01/25); increased from 20mg daily Chronic A. Fib - continue Diltiazem and Toprol - patient is now on Coumadin, INR is 2.2 - will give Coumadin 3mg and recheck INR - has had supratherapeutic INR with 5mg of Coumadin L Knee pain - resolved Hypothyroidism - continue Synthroid Ambulatory Dysfunction - PT/OT - needs SNF discharge DVT ppx - Coumadin FULL CODE
[2018-02-16 15:00] VITALS: BP 121/80; PULSE 80; TEMP 36.4
[2018-02-16] MEDS ORDERED: WARFARIN SOD 1 MG TAB PO SCH (16:00)
[2018-02-16 19:40] VITALS: PULSE 81; O2SAT 93
[2018-02-17] VITALS (7 sets, daily range): BP systolic 127–155; BP diastolic 68–76; PULSE 66–85; TEMP 36.4–36.8; O2SAT 94–97
[2018-02-17] MEDS: LEVOTHYROXINE 100 MCG TAB PO SCH (06:01)
[2018-02-17 06:47] LABS: HEMATOCRIT 38.7 % (37-47); HEMOGLOBIN 12.2 g/dL (12.0-16.0); MEAN CORPUSCULAR HEMOGLOBIN 30.3 pg (25-34); MEAN CORPUSCULAR HGB CONC 31.5 g/dl (32-36); MEAN PLATELET VOLUME 9.1 fL (7.4-10.4); PLATELET COUNT 275 K/uL (130-400); RED CELL DISTRIBUTION WIDTH SD 52.9 fL (36.4-46.3); WHITE BLOOD COUNT 5.88 K/uL (4.8-10.8)
[2018-02-17 07:07] LABS: INR 2.3 (0.9-1.1)
[2018-02-17] MEDS: IPRATROPIUM BROMIDE NEB SOLN 0.02% 2.5 ML VIAL INH SCH ×2 (07:12→19:00)
[2018-02-17] MEDS: LEVALBUTEROL 0.63MG/3 ML NEB INH SCH ×2 (07:12→19:00)
[2018-02-17 07:23] LABS: CALCIUM 9.1 mg/dl (8.5-10.1); CREATININE 0.81 mg/dl (0.60-1.20); POTASSIUM 4.1 mmol/L (3.5-5.1)
[2018-02-17] MEDS: ATORVASTATIN 40 MG TAB PO SCH (07:34)
[2018-02-17] MEDS: METOPROLOL SUCC 50MG EXT REL TAB PO SCH (07:35)
[2018-02-17] MEDS: FUROSEMIDE 40 MG TAB PO SCH (07:35)
[2018-02-17] MEDS: DILTIAZEM HCL 120 MG EXT REL CAP PO SCH (07:35)
[2018-02-17] MEDS: POTASSIUM CHLORIDE 20 MEQ TABCR PO SCH (07:35)
[2018-02-17] MEDS: FUROSEMIDE INJ 20 MG in SYRINGE 0 ML IV ONE ×2 (09:00→10:19)
--- NOTE | 2018-02-17 09:07 | Progress Note ---
Medicine Progress Note Date & Time of Visit: Feb 17, 2018 at 09:02. Subjective Seen sitting up in bed with nurse at the bedside throughout encounter Sleeping but easily arousable Alert States she feels fine Denies active shortness of breath, chest pain Denies other pain or any other symptoms Objective Last 8 Hrs Date Time Temp Pulse Resp B/P (MAP) Pulse Ox O2 Delivery O2 Flow Rate FiO2 02/17/18 07:41 Nasal Cannula 2.0 02/17/18 07:39 36.8 81 18 155/76 (102) 97 2.0 02/17/18 07:13 85 16 95 Nasal Cannula 2.0 Physical Exam: General-oriented 3, speaking in sentences, minimal accessory muscle use Eyes- anicteric Neck-mild JVD Lungs-mild rales left base, clear on the right , no wheezes Heart-normal rate, irregularly irregular rhythm; no murmurs Abdomen-soft, nondistended, nontender Extremities- moderate bilateral lower leg edema, no erythema/warmth/calf tenderness Neuro- alert, oriented x 2; no gross focal neurologic deficits noted Skin- warm & dry Laboratory Results: Last 24 Hours Test 02/17/18 06:05 White Blood Count 5.88 K/uL Red Blood Count 4.03 M/uL Hemoglobin 12.2 g/dL Hematocrit 38.7 % Mean Corpuscular Volume 96.0 fL Mean Corpuscular Hemoglobin 30.3 pg Mean Corpuscular Hemoglobin Concent 31.5 g/dl RDW Standard Deviation 52.9 fL RDW Coefficient of Variation 15.0 % Platelet Count 275 K/uL Mean Platelet Volume 9.1 fL Prothrombin Time 23.4 SECONDS Prothromb Time International Ratio 2.3 Sodium Level 137 mmol/L Potassium Level 4.1 mmol/L Chloride Level 98 mmol/L Carbon Dioxide Level 36 mmol/L Anion Gap 4.0 mmol/L Blood Urea Nitrogen 12 mg/dl Creatinine 0.81 mg/dl Est Creatinine Clear Calc Drug Dose 60.3 ml/min Estimated GFR () 76.8 Estimated GFR (Non- 66.2 BUN/Creatinine Ratio 14.9 Random Glucose 95 mg/dl Calcium Level 9.1 mg/dl Magnesium Level 2.0 mg/dl Assessment & Plan CHRONIC DIASTOLIC HEART FAILURE (+) bilateral lower leg edema positive fluid balance, Lasix 40 mg p.o. daily Additional Lasix 20 mg IV 1 dose now Monitor closely ACUTE ON CHRONIC HYPOXEMIC RESPIRATORY FAILURE Mostly from CHF diastolic type now Pneumonia resolved CHRONIC A FIB : INR 2.3 Coumadin 1 mg daily except Wednesdays during which patient also 2 mg INR daily CONFUSION /METABOLIC ENCEPHALOPATHY : Resolved Has dementia Appears to be at baseline LEFT KNEE PAIN Status post injection Denies pain HYPOTHYROIDISM : Continue levothyroxine SEVERE AMBULATORY DYSFUNCTION Continue PT OT evaluation Plan to transition to snf facility when accepted Full Code DVT PROPHYLAXIS INR 2.3 Coumadin DISPOSITION Plan to transition to snf facility when accepted Patient has no questions when asked Current Inpatient Medications: Current Inpatient Medications Medications (Trade) Dose Ordered Sig/Mak Route Start Time Stop Time Status Last Admin Dose Admin Levothyroxine Sodium (Synthroid Tab) 100 mcg DAILYBB PO 12/16/17 06:30 02/28/18 06:29 02/17/18 06:01 100 MCG Atorvastatin Calcium (Lipitor Tab) 40 mg DAILY PO 01/30/18 11:30 02/28/18 11:29 02/17/18 07:34 40 MG Diltiazem HCl (TIAzac CAP) 120 mg DAILY PO 01/30/18 11:30 02/28/18 11:29 02/17/18 07:35 120 MG Furosemide (Lasix Tab) 40 mg QAM PO 01/30/18 11:30 02/26/18 08:59 02/17/18 07:35 40 MG Potassium Chloride (Klor-Con Tab) 20 meq DAILY PO 01/30/18 11:30 02/28/18 11:29 02/17/18 07:35 20 MEQ Miconazole Nitrate (Desenex Powder) 1 appln PRN PRN EXT 01/30/18 22:15 03/01/18 22:14 02/14/18 08:00 1 APPLN Metoprolol Succinate (Toprol Xl Tab) 50 mg QAM PO 02/03/18 21:00 02/21/18 08:59 02/17/18 07:35 50 MG Trolamine Salicylate (Myoflex Cream) 1 appln UD PRN EXT 02/07/18 14:00 03/09/18 13:59 02/07/18 15:21 1 APPLN Ipratropium [place] (Atrovent 0.02% 0.5MG/2.5ML Neb) 0.5 mg BIDR INH 02/08/18 20:00 03/05/18 11:59 02/17/18 07:12 0.5 MG Levalbuterol (Xopenex 0.63 Mg/ 3 Ml Neb) 0.63 mg BIDR INH 02/08/18 20:00 03/05/18 11:59 02/17/18 07:12 0.63 MG Warfarin Sodium (Coumadin Tab) 1 mg UD PO 02/17/18 16:00 03/03/18 15:59 UNV Warfarin Sodium (Coumadin Tab) 2 mg UD PO 02/17/18 08:45 03/19/18 08:44 UNV
[2018-02-17] MEDS: WARFARIN SOD 1 MG TAB PO SCH (16:32)
[2018-02-17] MEDS ORDERED: FUROSEMIDE INJ 20 MG in SYRINGE 0 ML IV ONE (18:45)
[2018-02-17] MEDS ORDERED: FUROSEMIDE 20 MG TAB PO STA (19:34)
[2018-02-18] MEDS: LEVOTHYROXINE 100 MCG TAB PO SCH (06:18)
[2018-02-18 07:00] VITALS: PULSE 70; O2SAT 99
[2018-02-18] MEDS: LEVALBUTEROL 0.63MG/3 ML NEB INH SCH (07:00)
[2018-02-18] MEDS: IPRATROPIUM BROMIDE NEB SOLN 0.02% 2.5 ML VIAL INH SCH (07:00)
[2018-02-18 07:20] VITALS: BP 141/79; PULSE 86; TEMP 36.6; O2SAT 99
[2018-02-18] MEDS: DILTIAZEM HCL 120 MG EXT REL CAP PO SCH (07:43)
[2018-02-18] MEDS: METOPROLOL SUCC 50MG EXT REL TAB PO SCH (07:43)
[2018-02-18] MEDS: FUROSEMIDE 40 MG TAB PO SCH ×2 (07:43→20:41)
[2018-02-18] MEDS: ATORVASTATIN 40 MG TAB PO SCH (07:43)
[2018-02-18] MEDS: POTASSIUM CHLORIDE 20 MEQ TABCR PO SCH (07:44)
[2018-02-18 10:01] LABS: INR 2.2 (0.9-1.1)
[2018-02-18 13:07] LABS: CREATININE 0.95 mg/dl (0.60-1.20)
[2018-02-18 15:18] VITALS: BP 134/70; PULSE 85; TEMP 36.6; O2SAT 90
[2018-02-18] MEDS: WARFARIN SOD 2 MG TAB PO SCH (15:41)
[2018-02-18] MEDS ORDERED: NURSING VERBAL MED ORDER ONE (17:00)
--- NOTE | 2018-02-18 21:29 | Progress Note ---
Medicine Progress Note Date & Time of Visit: Feb 18, 2018 at 21:27. Subjective Seen resting in chair, comfortable RN at the bedside throughout the whole encounter States she feels fine Denies shortness of breath, chest pain, dizziness Denies pain Denies bleeding No other symptoms Objective Last 8 Hrs Date Time Temp Pulse Resp B/P (MAP) Pulse Ox O2 Delivery O2 Flow Rate FiO2 02/18/18 16:00 Nasal Cannula 2.0 02/18/18 15:18 36.6 85 22 134/70 (91) 90 Nasal Cannula 2.0 Physical Exam: General-oriented 3, speaking in sentences, minimal accessory muscle use Eyes- anicteric Neck-mild JVD Lungs-mild rales at the bases, no wheezing Heart-normal rate, irregularly irregular rhythm; no murmurs Abdomen-soft, nondistended, nontender Extremities- moderate bilateral lower leg edema, no erythema/warmth/calf tenderness Neuro- alert, oriented x 2; no gross focal neurologic deficits noted Skin- warm & dry Laboratory Results: Last 24 Hours Test 02/18/18 09:32 Prothrombin Time 23.1 SECONDS Prothromb Time International Ratio 2.2 Sodium Level 137 mmol/L Potassium Level 4.0 mmol/L Chloride Level 97 mmol/L Carbon Dioxide Level 35 mmol/L Anion Gap 5.0 mmol/L Blood Urea Nitrogen 14 mg/dl Creatinine 0.95 mg/dl Est Creatinine Clear Calc Drug Dose 51.4 ml/min Estimated GFR () 63.3 Estimated GFR (Non- 54.6 BUN/Creatinine Ratio 14.6 Random Glucose 124 mg/dl Calcium Level 9.0 mg/dl Assessment & Plan CHRONIC DIASTOLIC HEART FAILURE (+) bilateral lower leg edema positive fluid balance, Lasix 40 mg p.o. daily Additional Lasix 20 mg IV 1 dose now Monitor closely February 18, 2018 Still has some bilateral basilar rales and lower leg edema Patient refusing Lasix IV Increase Lasix to 40 mg p.o. twice daily Monitor creatinine ACUTE ON CHRONIC HYPOXEMIC RESPIRATORY FAILURE Mostly from CHF diastolic type now Pneumonia resolved CHRONIC A FIB : INR 2.2 Coumadin 1 mg daily except Wednesdays during which patient also 2 mg INR daily CONFUSION /METABOLIC ENCEPHALOPATHY : Resolved Has dementia Appears to be at baseline LEFT KNEE PAIN Status post injection Denies pain HYPOTHYROIDISM : Continue levothyroxine SEVERE AMBULATORY DYSFUNCTION Continue PT OT evaluation Plan to transition to half-way facility when accepted Full Code DVT PROPHYLAXIS INR 2.2 Coumadin DISPOSITION Plan to transition to half-way facility when accepted Patient comfortable and agreeable with plan of care Current Inpatient Medications: Current Inpatient Medications Medications (Trade) Dose Ordered Sig/Mak Route Start Time Stop Time Status Last Admin Dose Admin Levothyroxine Sodium (Synthroid Tab) 100 mcg DAILYBB PO 12/16/17 06:30 02/28/18 06:29 02/18/18 06:18 100 MCG Atorvastatin Calcium (Lipitor Tab) 40 mg DAILY PO 01/30/18 11:30 02/28/18 11:29 02/18/18 07:43 40 MG Diltiazem HCl (TIAzac CAP) 120 mg DAILY PO 01/30/18 11:30 02/28/18 11:29 02/18/18 07:43 120 MG Potassium Chloride (Klor-Con Tab) 20 meq DAILY PO 01/30/18 11:30 02/28/18 11:29 02/18/18 07:44 20 MEQ Miconazole Nitrate (Desenex Powder) 1 appln PRN PRN EXT 01/30/18 22:15 03/01/18 22:14 02/14/18 08:00 1 APPLN Metoprolol Succinate (Toprol Xl Tab) 50 mg QAM PO 02/03/18 21:00 02/21/18 08:59 02/18/18 07:43 50 MG Trolamine Salicylate (Myoflex Cream) 1 appln UD PRN EXT 02/07/18 14:00 03/09/18 13:59 02/07/18 15:21 1 APPLN Warfarin Sodium (Coumadin Tab) 1 mg SuTuThSa@1600 PO 02/17/18 16:00 03/19/18 15:59 02/17/18 16:32 1 MG Warfarin Sodium (Coumadin Tab) 2 mg MoWeFr@1600 PO 02/18/18 16:00 03/20/18 15:59 02/18/18 15:41 2 MG Furosemide (Lasix Tab) 40 mg BID PO 02/18/18 21:00 02/26/18 08:59 02/18/18 20:41 40 MG Ipratropium [place] (Atrovent 0.02% 0.5MG/2.5ML Neb) 0.5 mg Q4H PRN INH 02/18/18 17:00 03/20/18 16:59 Levalbuterol (Xopenex 0.63 Mg/ 3 Ml Neb) 0.63 mg Q4H PRN INH 02/18/18 17:00 03/20/18 16:59
[2018-02-19 00:10] VITALS: BP 132/61; PULSE 79; TEMP 36.8; O2SAT 92
[2018-02-19] MEDS: LEVOTHYROXINE 100 MCG TAB PO SCH (05:49)
[2018-02-19 07:15] VITALS: BP 129/73; PULSE 90; TEMP 36.6; O2SAT 92
[2018-02-19] MEDS: METOPROLOL SUCC 50MG EXT REL TAB PO SCH (07:50)
[2018-02-19] MEDS: FUROSEMIDE 40 MG TAB PO SCH ×2 (07:51→20:21)
[2018-02-19] MEDS: POTASSIUM CHLORIDE 20 MEQ TABCR PO SCH (07:51)
[2018-02-19] MEDS: DILTIAZEM HCL 120 MG EXT REL CAP PO SCH (07:51)
[2018-02-19] MEDS: ATORVASTATIN 40 MG TAB PO SCH (07:52)
[2018-02-19 08:04] LABS: INR 2.3 (0.9-1.1)
[2018-02-19 08:28] LABS: CALCIUM 9.1 mg/dl (8.5-10.1); CREATININE 0.89 mg/dl (0.60-1.20); POTASSIUM 3.5 mmol/L (3.5-5.1)
--- NOTE | 2018-02-19 10:15 | Progress Note ---
Medicine Progress Note Date & Time of Visit: Feb 19, 2018 at 10:15. Subjective She was RN at the bedside throughout the whole encounter Patient sitting up in bed, awake, comfortable, watching TV Asked permission and she allowed me to examine her States she feels fine overall Denies shortness of breath, cough, chest pain, bleeding Denies other symptoms Objective Last 8 Hrs Date Time Temp Pulse Resp B/P (MAP) Pulse Ox O2 Delivery O2 Flow Rate FiO2 02/19/18 08:00 Nasal Cannula 2.0 02/19/18 07:15 36.6 90 20 129/73 (91) 92 Nasal Cannula 2.0 Physical Exam: General-oriented 3, speaking in sentences, minimal accessory muscle use Eyes- anicteric Left ear-small scabbed wound on the upper pinna, no discharge, mild erythema surrounding; ear canals essentially normal tympanic membrane normal Very minimal cerumen Right ear-essentially normal, very minimal cerumen Neck-mild JVD Lungs-very mild rales at the bases, mild intermittent expiratory wheezing Heart-normal rate, irregularly irregular rhythm; no murmurs Abdomen-soft, nondistended, nontender Extremities- moderate bilateral lower leg edema, no erythema/warmth/calf tenderness Neuro- alert, oriented x 2; no gross focal neurologic deficits noted Skin- warm & dry Laboratory Results: Last 24 Hours Test 02/19/18 07:36 Prothrombin Time 23.6 SECONDS Prothromb Time International Ratio 2.3 Sodium Level 137 mmol/L Potassium Level 3.5 mmol/L Chloride Level 96 mmol/L Carbon Dioxide Level 36 mmol/L Anion Gap 6.0 mmol/L Blood Urea Nitrogen 13 mg/dl Creatinine 0.89 mg/dl Est Creatinine Clear Calc Drug Dose 54.9 ml/min Estimated GFR () 68.5 Estimated GFR (Non- 59.1 BUN/Creatinine Ratio 14.8 Random Glucose 98 mg/dl Calcium Level 9.1 mg/dl Assessment & Plan CHRONIC DIASTOLIC HEART FAILURE (+) bilateral lower leg edema positive fluid balance, Lasix 40 mg p.o. daily Additional Lasix 20 mg IV 1 dose now Monitor closely February 18, 2018 Still has some bilateral basilar rales and lower leg edema Patient refusing Lasix IV Increase Lasix to 40 mg p.o. twice daily Monitor creatinine February 19, 2018 Breath sounds improving, still has the same lower leg edema Continue Lasix 40 mg twice daily monitor Renal function ACUTE ON CHRONIC HYPOXEMIC RESPIRATORY FAILURE Mostly from CHF diastolic type Pneumonia resolved Continue O2 supplementation CHRONIC A FIB : INR 2.3 Coumadin 1 mg daily except Wednesdays during which patient receives 2 mg INR daily CONFUSION /METABOLIC ENCEPHALOPATHY : Resolved Has dementia Appears to be at baseline LEFT KNEE PAIN Status post injection Denies pain HYPOTHYROIDISM : Continue levothyroxine SEVERE AMBULATORY DYSFUNCTION Continue PT OT evaluation Plan [facility] facility when accepted Full Code DVT PROPHYLAXIS INR 2.3 Coumadin DISPOSITION Plan to transition to jail facility when accepted Patient comfortable and agreeable with plan of care Current Inpatient Medications: Current Inpatient Medications Medications (Trade) Dose Ordered Sig/Mak Route Start Time Stop Time Status Last Admin Dose Admin Levothyroxine Sodium (Synthroid Tab) 100 mcg DAILYBB PO 12/16/17 06:30 02/28/18 06:29 02/19/18 05:49 100 MCG Atorvastatin Calcium (Lipitor Tab) 40 mg DAILY PO 01/30/18 11:30 02/28/18 11:29 02/19/18 07:52 40 MG Diltiazem HCl (TIAzac CAP) 120 mg DAILY PO 01/30/18 11:30 02/28/18 11:29 02/19/18 07:51 120 MG Potassium Chloride (Klor-Con Tab) 20 meq DAILY PO 01/30/18 11:30 02/28/18 11:29 02/19/18 07:51 20 MEQ Miconazole Nitrate (Desenex Powder) 1 appln PRN PRN EXT 01/30/18 22:15 03/01/18 22:14 02/14/18 08:00 1 APPLN Metoprolol Succinate (Toprol Xl Tab) 50 mg QAM PO 02/03/18 21:00 02/21/18 08:59 02/19/18 07:50 50 MG Trolamine Salicylate (Myoflex Cream) 1 appln UD PRN EXT 02/07/18 14:00 03/09/18 13:59 02/07/18 15:21 1 APPLN Warfarin Sodium (Coumadin Tab) 1 mg SuTuThSa@1600 PO 02/17/18 16:00 03/19/18 15:59 02/17/18 16:32 1 MG Warfarin Sodium (Coumadin Tab) 2 mg MoWeFr@1600 PO 02/18/18 16:00 03/20/18 15:59 02/18/18 15:41 2 MG Furosemide (Lasix Tab) 40 mg BID PO 02/18/18 21:00 02/26/18 08:59 02/19/18 07:51 40 MG Ipratropium [place] (Atrovent 0.02% 0.5MG/2.5ML Neb) 0.5 mg Q4H PRN INH 02/18/18 17:00 03/20/18 16:59 Levalbuterol (Xopenex 0.63 Mg/ 3 Ml Neb) 0.63 mg Q4H PRN INH 02/18/18 17:00 03/20/18 16:59
[2018-02-19] MEDS ORDERED: BACITRACIN OINT 15 GM TUBE EXT ONE (10:30)
[2018-02-19 14:46] VITALS: BP 150/73; PULSE 65; TEMP 36.7; O2SAT 96
[2018-02-19] MEDS: WARFARIN SOD 1 MG TAB PO SCH (15:43)
[2018-02-19] MEDS: BACITRACIN OINT 15 GM TUBE EXT SCH (20:21)
[2018-02-20] VITALS: BP 154/71; PULSE 66; TEMP 36.5; O2SAT 96
[2018-02-20 02:13] VITALS: PULSE 68; PULSE 70; O2SAT 97; O2SAT 99
[2018-02-20] MEDS: IPRATROPIUM BROMIDE NEB SOLN 0.02% 2.5 ML VIAL INH PRN (02:13)
[2018-02-20] MEDS: LEVALBUTEROL 0.63MG/3 ML NEB INH PRN (02:13)
[2018-02-20 06:23] LABS: INR 2.3 (0.9-1.1)
[2018-02-20] MEDS: LEVOTHYROXINE 100 MCG TAB PO SCH (06:39)
[2018-02-20 06:46] LABS: CALCIUM 8.6 mg/dl (8.5-10.1); CREATININE 0.93 mg/dl (0.60-1.20); POTASSIUM 3.6 mmol/L (3.5-5.1)
[2018-02-20 07:19] VITALS: BP 182/67; PULSE 67; TEMP 36.6; O2SAT 99
[2018-02-20] MEDS: ATORVASTATIN 40 MG TAB PO SCH (09:00)
[2018-02-20] MEDS: FUROSEMIDE 40 MG TAB PO SCH (09:00)
[2018-02-20] MEDS: METOPROLOL SUCC 50MG EXT REL TAB PO SCH ×2 (09:00→11:16)
[2018-02-20] MEDS: DILTIAZEM HCL 120 MG EXT REL CAP PO SCH ×2 (09:00→11:58)
[2018-02-20] MEDS: POTASSIUM CHLORIDE 20 MEQ TABCR PO SCH (09:00)
--- NOTE | 2018-02-20 11:06 | Progress Note ---
Medicine Progress Note Date & Time of Visit: Feb 20, 2018 at 10:40. Subjective Seen sitting up in bed watching TV, comfortable Asked permission from the patient and she has allowed me to evaluate her States she feels fine Denies shortness of breath, chest pain, palpitations, dizziness Denies any pain No other symptoms Objective Last 8 Hrs Date Time Temp Pulse Resp B/P (MAP) Pulse Ox O2 Delivery O2 Flow Rate FiO2 02/20/18 08:00 Nasal Cannula 2.0 02/20/18 07:19 36.6 67 20 182/67 (105) 99 Nasal Cannula 2.0 Physical Exam: General-oriented 3, speaking in sentences, minimal accessory muscle use Eyes- anicteric Neck-no JVD Lungs-clear breath sounds bilaterally, mild intermittent expiratory wheezing Heart-normal rate, irregularly irregular rhythm; no murmurs Abdomen-soft, nondistended, nontender Extremities- moderate bilateral lower leg edema, no erythema/warmth/calf tenderness Neuro- alert, oriented x 2; no gross focal neurologic deficits noted Skin- warm & dry Laboratory Results: Last 24 Hours Test 02/20/18 05:28 Prothrombin Time 23.7 SECONDS Prothromb Time International Ratio 2.3 Sodium Level 137 mmol/L Potassium Level 3.6 mmol/L Chloride Level 96 mmol/L Carbon Dioxide Level 39 mmol/L Anion Gap 2.0 mmol/L Blood Urea Nitrogen 14 mg/dl Creatinine 0.93 mg/dl Est Creatinine Clear Calc Drug Dose 52.5 ml/min Estimated GFR () 65.0 Estimated GFR (Non- 56.0 BUN/Creatinine Ratio 15.1 Random Glucose 99 mg/dl Calcium Level 8.6 mg/dl Assessment & Plan CHRONIC DIASTOLIC HEART FAILURE (+) bilateral lower leg edema positive fluid balance, Lasix 40 mg p.o. daily Additional Lasix 20 mg IV 1 dose now Monitor closely February 18, 2018 Still has some bilateral basilar rales and lower leg edema Patient refusing Lasix IV Increase Lasix to 40 mg p.o. twice daily Monitor creatinine February 19, 2018 Breath sounds improving, still has the same lower leg edema Continue Lasix 40 mg twice daily monitor Renal function February 20, 2018 Breath sounds continues to improve Resume to Lasix 40 mg daily Monitor volume status and renal function ACUTE ON CHRONIC HYPOXEMIC RESPIRATORY FAILURE Mostly from CHF diastolic type Pneumonia resolved Continue O2 supplementation CHRONIC A FIB : INR 2.3 Coumadin 1 mg daily except Wednesdays during which patient receives 2 mg INR daily CONFUSION /METABOLIC ENCEPHALOPATHY : Resolved Has dementia Appears to be at baseline LEFT KNEE PAIN Status post injection Denies pain HYPOTHYROIDISM : Continue levothyroxine SEVERE AMBULATORY DYSFUNCTION Continue PT OT evaluation Plan to transition to custodial facility when accepted Full Code DVT PROPHYLAXIS INR 2.2 Coumadin DISPOSITION Plan to transition to custodial facility when accepted Patient comfortable and agreeable with plan of care Current Inpatient Medications: Current Inpatient Medications Medications (Trade) Dose Ordered Sig/Mak Route Start Time Stop Time Status Last Admin Dose Admin Levothyroxine Sodium (Synthroid Tab) 100 mcg DAILYBB PO 12/16/17 06:30 02/28/18 06:29 02/20/18 06:39 100 MCG Atorvastatin Calcium (Lipitor Tab) 40 mg DAILY PO 01/30/18 11:30 02/28/18 11:29 02/19/18 07:52 40 MG Diltiazem HCl (TIAzac CAP) 120 mg DAILY PO 01/30/18 11:30 02/28/18 11:29 02/19/18 07:51 120 MG Potassium Chloride (Klor-Con Tab) 20 meq DAILY PO 01/30/18 11:30 02/28/18 11:29 02/19/18 07:51 20 MEQ Miconazole Nitrate (Desenex Powder) 1 appln PRN PRN EXT 01/30/18 22:15 03/01/18 22:14 02/14/18 08:00 1 APPLN Metoprolol Succinate (Toprol Xl Tab) 50 mg QAM PO 02/03/18 21:00 02/21/18 08:59 02/19/18 07:50 50 MG Trolamine Salicylate (Myoflex Cream) 1 appln UD PRN EXT 02/07/18 14:00 03/09/18 13:59 02/07/18 15:21 1 APPLN Warfarin Sodium (Coumadin Tab) 1 mg SuTuThSa@1600 PO 02/17/18 16:00 03/19/18 15:59 02/19/18 15:43 1 MG Warfarin Sodium (Coumadin Tab) 2 mg MoWeFr@1600 PO 02/18/18 16:00 03/20/18 15:59 02/18/18 15:41 2 MG Furosemide (Lasix Tab) 40 mg BID PO 02/18/18 21:00 02/26/18 08:59 02/19/18 20:21 40 MG Ipratropium [place] (Atrovent 0.02% 0.5MG/2.5ML Neb) 0.5 mg Q4H PRN INH 02/18/18 17:00 03/20/18 16:59 02/20/18 02:13 0.5 MG Levalbuterol (Xopenex 0.63 Mg/ 3 Ml Neb) 0.63 mg Q4H PRN INH 02/18/18 17:00 03/20/18 16:59 02/20/18 02:13 0.63 MG Bacitracin (Bacitracin Oint) 1 appln BID EXT 02/19/18 21:00 03/21/18 20:59 02/19/18 20:21 1 APPLN
[2018-02-20] MEDS: BACITRACIN OINT 15 GM TUBE EXT SCH ×2 (11:59→21:00)
[2018-02-20] MEDS: WARFARIN SOD 2 MG TAB PO SCH (15:32)
[2018-02-20 15:52] VITALS: BP 133/57; PULSE 86; TEMP 36.4; O2SAT 96
[2018-02-20 16:09] VITALS: O2SAT 96
[2018-02-20] MEDS ORDERED: MAGNESIUM HYDROXIDE SUSP 30 ML UDC PO PRN (18:45)
[2018-02-20] MEDS ORDERED: DOCUSATE SODIUM/SENNA 50/8.6MG TAB PO ONE (18:57)
[2018-02-20 23:17] VITALS: BP 139/76; PULSE 79; TEMP 36.9; O2SAT 95
[2018-02-21] VITALS (7 sets, daily range): BP systolic 142–148; BP diastolic 55–87; PULSE 80–88; TEMP 36.6–36.8; O2SAT 85–97
[2018-02-21] MEDS: LEVOTHYROXINE 100 MCG TAB PO SCH (06:44)
[2018-02-21 06:57] LABS: INR 2.4 (0.9-1.1)
[2018-02-21 07:20] LABS: CALCIUM 8.8 mg/dl (8.5-10.1); CREATININE 0.86 mg/dl (0.60-1.20); POTASSIUM 3.8 mmol/L (3.5-5.1)
[2018-02-21] MEDS: DILTIAZEM HCL 120 MG EXT REL CAP PO SCH (08:21)
[2018-02-21] MEDS: BACITRACIN OINT 15 GM TUBE EXT SCH ×2 (08:22→21:38)
[2018-02-21] MEDS: DOCUSATE SODIUM/SENNA 50/8.6MG TAB PO SCH (08:23)
[2018-02-21] MEDS: POTASSIUM CHLORIDE 20 MEQ TABCR PO SCH (08:26)
[2018-02-21] MEDS: ATORVASTATIN 40 MG TAB PO SCH (08:26)
[2018-02-21] MEDS ORDERED: FUROSEMIDE 40 MG TAB PO SCH (09:00)
--- NOTE | 2018-02-21 10:20 | Progress Note ---
Medicine Progress Note Date & Time of Visit: Feb 21, 2018 at 10:14. Subjective seen sitting up in bed, comfortable, watching tv states she feels fine, denies shortness of breath, chest pain or any other symptoms declined to have physical exam done, explained that i need to examine her so i can make appropriate recommendations, including her medications patient still declined as per RN, patient's breath sounds are clear BL, (+) for lower leg edema Objective Last 8 Hrs Date Time Temp Pulse Resp B/P (MAP) Pulse Ox O2 Delivery O2 Flow Rate FiO2 02/21/18 08:00 Nasal Cannula 2.0 02/21/18 07:40 36.7 80 19 142/87 (105) 97 Room Air Physical Exam: General-oriented 3, speaking in sentences,NO accessory muscle use Eyes- anicteric patient declined physical exam Laboratory Results: Last 24 Hours Test 02/21/18 06:38 Prothrombin Time 24.7 SECONDS Prothromb Time International Ratio 2.4 Sodium Level 138 mmol/L Potassium Level 3.8 mmol/L Chloride Level 97 mmol/L Carbon Dioxide Level 38 mmol/L Anion Gap 3.0 mmol/L Blood Urea Nitrogen 13 mg/dl Creatinine 0.86 mg/dl Est Creatinine Clear Calc Drug Dose 56.8 ml/min Estimated GFR () 71.4 Estimated GFR (Non- 61.6 BUN/Creatinine Ratio 15.5 Random Glucose 99 mg/dl Calcium Level 8.8 mg/dl Assessment & Plan CHRONIC DIASTOLIC HEART FAILURE February 18, 2018 Still has some bilateral basilar rales and lower leg edema Patient refusing Lasix IV Increase Lasix to 40 mg p.o. twice daily Monitor creatinine February 19, 2018 Breath sounds improving, still has the same lower leg edema Continue Lasix 40 mg twice daily monitor Renal function February 20, 2018 Breath sounds continues to improve Resume to Lasix 40 mg daily Monitor volume status and renal function February 21, 2018 declined physical exam (+) leg edema per RN resume Lasix 40mg BID ACUTE ON CHRONIC HYPOXEMIC RESPIRATORY FAILURE Mostly from CHF diastolic type Pneumonia resolved Continue O2 supplementation CHRONIC A FIB : INR 2.4 Coumadin 1 mg daily except Wednesdays during which patient receives 2 mg INR daily CONFUSION /METABOLIC ENCEPHALOPATHY : Resolved Has dementia Appears to be at baseline LEFT KNEE PAIN Status post injection Denies pain HYPOTHYROIDISM : Continue levothyroxine SEVERE AMBULATORY DYSFUNCTION Continue PT OT evaluation Plan to transition to longterm facility when accepted Full Code DVT PROPHYLAXIS Coumadin DISPOSITION Plan to transition to longterm facility when accepted Patient comfortable and agreeable with plan of care Current Inpatient Medications: Current Inpatient Medications Medications (Trade) Dose Ordered Sig/Mak Route Start Time Stop Time Status Last Admin Dose Admin Levothyroxine Sodium (Synthroid Tab) 100 mcg DAILYBB PO 12/16/17 06:30 02/28/18 06:29 02/21/18 06:44 100 MCG Atorvastatin Calcium (Lipitor Tab) 40 mg DAILY PO 01/30/18 11:30 02/28/18 11:29 02/19/18 07:52 40 MG Diltiazem HCl (TIAzac CAP) 120 mg DAILY PO 01/30/18 11:30 02/28/18 11:29 02/21/18 08:21 120 MG Potassium Chloride (Klor-Con Tab) 20 meq DAILY PO 01/30/18 11:30 02/28/18 11:29 02/19/18 07:51 20 MEQ Miconazole Nitrate (Desenex Powder) 1 appln PRN PRN EXT 01/30/18 22:15 03/01/18 22:14 02/14/18 08:00 1 APPLN Trolamine Salicylate (Myoflex Cream) 1 appln UD PRN EXT 02/07/18 14:00 03/09/18 13:59 02/07/18 15:21 1 APPLN Warfarin Sodium (Coumadin Tab) 1 mg SuTuThSa@1600 PO 02/17/18 16:00 03/19/18 15:59 02/19/18 15:43 1 MG Warfarin Sodium (Coumadin Tab) 2 mg MoWeFr@1600 PO 02/18/18 16:00 03/20/18 15:59 02/20/18 15:32 2 MG Ipratropium [place] (Atrovent 0.02% 0.5MG/2.5ML Neb) 0.5 mg Q4H PRN INH 02/18/18 17:00 03/20/18 16:59 02/20/18 02:13 0.5 MG Levalbuterol (Xopenex 0.63 Mg/ 3 Ml Neb) 0.63 mg Q4H PRN INH 02/18/18 17:00 03/20/18 16:59 02/20/18 02:13 0.63 MG Bacitracin (Bacitracin Oint) 1 appln BID EXT 02/19/18 21:00 03/21/18 20:59 02/21/18 08:22 1 APPLN Furosemide (Lasix Tab) 40 mg DAILY PO 02/21/18 09:00 02/26/18 08:59 02/21/18 08:21 40 MG Senna/Docusate Sodium (Senokot S Tab) 1 tab QAM PO 02/21/18 09:00 03/23/18 08:59 02/21/18 08:23 1 TAB Magnesium Hydroxide (Milk Of Magnesia Susp) 30 ml Q6H PRN PO 02/20/18 18:45 03/22/18 18:44
[2018-02-21] MEDS: LEVALBUTEROL 0.63MG/3 ML NEB INH PRN (12:32)
[2018-02-21] MEDS: IPRATROPIUM BROMIDE NEB SOLN 0.02% 2.5 ML VIAL INH PRN (12:32)
[2018-02-21] MEDS: FUROSEMIDE 40 MG TAB PO SCH (17:22)
[2018-02-21] MEDS: WARFARIN SOD 1 MG TAB PO SCH (17:22)
[2018-02-22] MEDS: LEVOTHYROXINE 100 MCG TAB PO SCH (05:35)
[2018-02-22 06:59] VITALS: BP 146/79; PULSE 88; TEMP 36.6; O2SAT 97
[2018-02-22] MEDS: BACITRACIN OINT 15 GM TUBE EXT SCH ×2 (07:49→21:42)
[2018-02-22] MEDS: DOCUSATE SODIUM/SENNA 50/8.6MG TAB PO SCH ×2 (07:49→07:57)
[2018-02-22] MEDS: ATORVASTATIN 40 MG TAB PO SCH ×2 (07:49→07:57)
[2018-02-22] MEDS: POTASSIUM CHLORIDE 20 MEQ TABCR PO SCH ×2 (07:50→07:57)
[2018-02-22] MEDS: DILTIAZEM HCL 120 MG EXT REL CAP PO SCH ×2 (07:50→07:57)
[2018-02-22] MEDS: FUROSEMIDE 40 MG TAB PO SCH ×2 (07:50→07:57)
--- NOTE | 2018-02-22 09:29 | Progress Note ---
Medicine Progress Note Date & Time of Visit: Feb 22, 2018 at 09:12. Subjective Seen sitting up in bed, watching TV, comfortable States she feels fine No shortness of breath, or any pain Denies any symptoms Patient is very irritable today Has has again declined to be examined, stating she is just tired of it Was also declined lab draws today, stating she is tired of doing Explained to patient that physical exam and labs were necessary to make appropriate recommendations and to take care of her well and get her better Patient still declined Explained the risks involved including possible deterioration of medical condition, bleeding and even Patient still declined will attempt to Exam patient blood work again later Objective Last 8 Hrs Date Time Temp Pulse Resp B/P (MAP) Pulse Ox O2 Delivery O2 Flow Rate FiO2 02/22/18 06:59 36.6 88 18 146/79 (101) 97 Physical Exam: General-oriented, speaking in sentences, NO accessory muscle use Eyes- anicteric patient declined physical exam Laboratory Results: Last 24 Hours Test 02/22/18 04:44 Assessment & Plan CHRONIC DIASTOLIC HEART FAILURE February 18, 2018 Still has some bilateral basilar rales and lower leg edema Patient refusing Lasix IV Increase Lasix to 40 mg p.o. twice daily Monitor creatinine February 19, 2018 Breath sounds improving, still has the same lower leg edema Continue Lasix 40 mg twice daily monitor Renal function February 20, 2018 Breath sounds continues to improve Resume to Lasix 40 mg daily Monitor volume status and renal function February 21, 2018 declined physical exam (+) leg edema per RN resume Lasix 40mg BID February 22, 2018 Declining physical exam and labs despite extensive discussion Per RN, patient's breath sounds are clear anteriorly and still has grade 1 bilateral leg edema Continue Lasix 40 daily for today ACUTE ON CHRONIC HYPOXEMIC RESPIRATORY FAILURE Mostly from CHF diastolic type Pneumonia resolved Continue O2 supplementation CHRONIC A FIB : INR 2.4 Coumadin 1 mg daily except Wednesdays during which patient receives 2 mg INR daily CONFUSION /METABOLIC ENCEPHALOPATHY : Resolved Has dementia Appears to be at baseline LEFT KNEE PAIN Status post injection Denies pain HYPOTHYROIDISM : Continue levothyroxine SEVERE AMBULATORY DYSFUNCTION Continue PT OT evaluation Plan to transition to senior care facility when accepted Full Code DVT PROPHYLAXIS Coumadin DISPOSITION Plan to transition to senior care facility when accepted Patient comfortable and agreeable with plan of care Current Inpatient Medications: Current Inpatient Medications Medications (Trade) Dose Ordered Sig/Mak Route Start Time Stop Time Status Last Admin Dose Admin Levothyroxine Sodium (Synthroid Tab) 100 mcg DAILYBB PO 12/16/17 06:30 02/28/18 06:29 02/22/18 05:35 100 MCG Atorvastatin Calcium (Lipitor Tab) 40 mg DAILY PO 01/30/18 11:30 02/28/18 11:29 02/19/18 07:52 40 MG Diltiazem HCl (TIAzac CAP) 120 mg DAILY PO 01/30/18 11:30 02/28/18 11:29 02/21/18 08:21 120 MG Potassium Chloride (Klor-Con Tab) 20 meq DAILY PO 01/30/18 11:30 02/28/18 11:29 02/19/18 07:51 20 MEQ Miconazole Nitrate (Desenex Powder) 1 appln PRN PRN EXT 01/30/18 22:15 03/01/18 22:14 02/14/18 08:00 1 APPLN Trolamine Salicylate (Myoflex Cream) 1 appln UD PRN EXT 02/07/18 14:00 03/09/18 13:59 02/07/18 15:21 1 APPLN Warfarin Sodium (Coumadin Tab) 1 mg SuTuThSa@1600 PO 02/17/18 16:00 03/19/18 15:59 02/21/18 17:22 1 MG Warfarin Sodium (Coumadin Tab) 2 mg MoWeFr@1600 PO 02/18/18 16:00 03/20/18 15:59 02/20/18 15:32 2 MG Ipratropium [place] (Atrovent 0.02% 0.5MG/2.5ML Neb) 0.5 mg Q4H PRN INH 02/18/18 17:00 03/20/18 16:59 02/21/18 12:32 0.5 MG Levalbuterol (Xopenex 0.63 Mg/ 3 Ml Neb) 0.63 mg Q4H PRN INH 02/18/18 17:00 03/20/18 16:59 02/21/18 12:32 0.63 MG Bacitracin (Bacitracin Oint) 1 appln BID EXT 02/19/18 21:00 03/21/18 20:59 02/22/18 07:49 1 APPLN Senna/Docusate Sodium (Senokot S Tab) 1 tab QAM PO 02/21/18 09:00 03/23/18 08:59 02/21/18 08:23 1 TAB Magnesium Hydroxide (Milk Of Magnesia Susp) 30 ml Q6H PRN PO 02/20/18 18:45 03/22/18 18:44 Furosemide (Lasix Tab) 40 mg BID17 PO 02/21/18 17:00 03/23/18 16:59 02/21/18 17:22 40 MG
[2018-02-22 15:38] VITALS: BP 145/82; PULSE 90; TEMP 36.4; O2SAT 97
[2018-02-22] MEDS: WARFARIN SOD 1 MG TAB PO SCH (15:41)
[2018-02-22 15:46] VITALS: O2SAT 97
[2018-02-22 23:05] VITALS: BP 178/87; PULSE 74; TEMP 36.8; O2SAT 96
[2018-02-22 23:40] VITALS: BP 156/81
[2018-02-23] MEDS: LEVOTHYROXINE 100 MCG TAB PO SCH (05:48)
[2018-02-23 07:27] VITALS: BP 121/73; PULSE 75; TEMP 36.5; O2SAT 98
[2018-02-23 08:30] LABS: INR 2.8 (0.9-1.1)
[2018-02-23 08:48] LABS: CALCIUM 9.2 mg/dl (8.5-10.1); CREATININE 0.81 mg/dl (0.60-1.20); POTASSIUM 3.8 mmol/L (3.5-5.1)
[2018-02-23] MEDS: FUROSEMIDE 40 MG TAB PO SCH (08:49)
[2018-02-23] MEDS: BACITRACIN OINT 15 GM TUBE EXT SCH ×2 (08:51→20:46)
[2018-02-23] MEDS: ATORVASTATIN 40 MG TAB PO SCH (08:52)
[2018-02-23] MEDS: MICONAZOLE NITRATE POWDER 43 GM EXT PRN (08:52)
[2018-02-23] MEDS: POTASSIUM CHLORIDE 20 MEQ TABCR PO SCH (08:52)
[2018-02-23] MEDS: DILTIAZEM HCL 120 MG EXT REL CAP PO SCH (08:52)
[2018-02-23] MEDS: DOCUSATE SODIUM/SENNA 50/8.6MG TAB PO SCH (08:52)
--- NOTE | 2018-02-23 12:20 | Progress Note ---
Medicine Progress Note Date & Time of Visit: Feb 23, 2018 at 12:14. Subjective Seen sitting up in bed, watching TV, comfortable Patient's RN Trish was at the room throughout the whole encounter As permission from the patient and she agreed to be evaluated Denies shortness of breath, any pain States she feels good No other symptoms Objective Last 8 Hrs Date Time Temp Pulse Resp B/P (MAP) Pulse Ox O2 Delivery O2 Flow Rate FiO2 02/23/18 08:00 Nasal Cannula 2.0 02/23/18 07:27 36.5 75 20 121/73 (89) 98 Nasal Cannula 2.0 Physical Exam: General-oriented 2, not in distress, speaking sentences, No accessory muscle use Eyes-anicteric Neck-no JVD Lungs-mild rales at the bases, no wheezing Heart-normal rate, regular rhythm; no murmur Abdomen- normal bowel sounds, soft, nontender Extremities-grade 1 lower leg edema, no calf tenderness Neuro- alert, oriented x 2, no gross focal deficits Skin- warm & dry Laboratory Results: Last 24 Hours Test 02/23/18 07:20 02/23/18 07:57 Bedside Glucose 91 mg/dl Prothrombin Time 28.9 SECONDS Prothromb Time International Ratio 2.8 Sodium Level 138 mmol/L Potassium Level 3.8 mmol/L Chloride Level 95 mmol/L Carbon Dioxide Level 38 mmol/L Anion Gap 4.0 mmol/L Blood Urea Nitrogen 11 mg/dl Creatinine 0.81 mg/dl Est Creatinine Clear Calc Drug Dose 60.3 ml/min Estimated GFR () 76.8 Estimated GFR (Non- 66.2 BUN/Creatinine Ratio 13.5 Random Glucose 125 mg/dl Calcium Level 9.2 mg/dl Assessment & Plan CHRONIC DIASTOLIC HEART FAILURE February 18, 2018 Still has some bilateral basilar rales and lower leg edema Patient refusing Lasix IV Increase Lasix to 40 mg p.o. twice daily Monitor creatinine February 19, 2018 Breath sounds improving, still has the same lower leg edema Continue Lasix 40 mg twice daily monitor Renal function February 20, 2018 Breath sounds continues to improve Resume to Lasix 40 mg daily Monitor volume status and renal function February 21, 2018 declined physical exam (+) leg edema per RN resume Lasix 40mg BID February 22, 2018 Declining physical exam and labs despite extensive discussion Per RN, patient's breath sounds are clear anteriorly and still has grade 1 bilateral leg edema Continue Lasix 40 daily for today February 23, 2018 Patient with mild rales at the bases grade 1 lower leg edema Declined Lasix yesterday We will give additional Lasix 20 mg p.o. tonight Monitor ACUTE ON CHRONIC HYPOXEMIC RESPIRATORY FAILURE Mostly from CHF diastolic type Pneumonia resolved Continue O2 supplementation CHRONIC A FIB : INR 2. 8 INR trending up, will hold Coumadin for now Repeat INR tomorrow May eventually need Coumadin 2 mg every other day INR daily CONFUSION /METABOLIC ENCEPHALOPATHY : Resolved Has dementia Appears to be at baseline LEFT KNEE PAIN Status post injection Denies pain HYPOTHYROIDISM : Continue levothyroxine SEVERE AMBULATORY DYSFUNCTION Case management on board working on discharge disposition Full Code DVT PROPHYLAXIS inr 2.8 DISPOSITION Case management on board working on discharge disposition Patient comfortable and agreeable with plan of care Current Inpatient Medications: Current Inpatient Medications Medications (Trade) Dose Ordered Sig/Mak Route Start Time Stop Time Status Last Admin Dose Admin Levothyroxine Sodium (Synthroid Tab) 100 mcg DAILYBB PO 12/16/17 06:30 02/28/18 06:29 02/23/18 05:48 100 MCG Atorvastatin Calcium (Lipitor Tab) 40 mg DAILY PO 01/30/18 11:30 02/28/18 11:29 02/19/18 07:52 40 MG Diltiazem HCl (TIAzac CAP) 120 mg DAILY PO 01/30/18 11:30 02/28/18 11:29 02/21/18 08:21 120 MG Potassium Chloride (Klor-Con Tab) 20 meq DAILY PO 01/30/18 11:30 02/28/18 11:29 02/19/18 07:51 20 MEQ Miconazole Nitrate (Desenex Powder) 1 appln PRN PRN EXT 01/30/18 22:15 03/01/18 22:14 02/23/18 08:52 1 APPLN Trolamine Salicylate (Myoflex Cream) 1 appln UD PRN EXT 02/07/18 14:00 03/09/18 13:59 02/07/18 15:21 1 APPLN Ipratropium [place] (Atrovent 0.02% 0.5MG/2.5ML Neb) 0.5 mg Q4H PRN INH 02/18/18 17:00 03/20/18 16:59 7/28/18 12:32 0.5 MG Levalbuterol (Xopenex 0.63 Mg/ 3 Ml Neb) 0.63 mg Q4H PRN INH 02/18/18 17:00 03/20/18 16:59 02/21/18 12:32 0.63 MG Bacitracin (Bacitracin Oint) 1 appln BID EXT 02/19/18 21:00 03/21/18 20:59 02/23/18 08:51 1 APPLN Senna/Docusate Sodium (Senokot S Tab) 1 tab QAM PO 02/21/18 09:00 03/23/18 08:59 02/21/18 08:23 1 TAB Magnesium Hydroxide (Milk Of Magnesia Susp) 30 ml Q6H PRN PO 02/20/18 18:45 03/22/18 18:44 Furosemide (Lasix Tab) 40 mg DAILY PO 02/23/18 09:00 03/23/18 16:59 02/23/18 08:49 40 MG
[2018-02-23 14:59] VITALS: BP 133/80; PULSE 90; TEMP 36.6; O2SAT 96
[2018-02-23] MEDS ORDERED: METOPROLOL SUCC 25MG EXT REL TAB PO ONE (16:45)
[2018-02-23 20:45] VITALS: BP 134/65; PULSE 104
[2018-02-23 23:21] VITALS: BP 144/62; PULSE 106; TEMP 36.4; O2SAT 98
[2018-02-24] VITALS (8 sets, daily range): BP systolic 137–140; BP diastolic 60–82; PULSE 73–119; TEMP 36.6; O2SAT 91–96
[2018-02-24] MEDS: LEVOTHYROXINE 100 MCG TAB PO SCH (06:25)
[2018-02-24] MEDS: FUROSEMIDE 40 MG TAB PO SCH (07:26)
[2018-02-24] MEDS: BACITRACIN OINT 15 GM TUBE EXT SCH ×2 (07:26→20:31)
[2018-02-24] MEDS: POTASSIUM CHLORIDE 20 MEQ TABCR PO SCH (07:26)
[2018-02-24] MEDS: METOPROLOL SUCC 50MG EXT REL TAB PO SCH ×2 (07:27→09:28)
[2018-02-24] MEDS: DOCUSATE SODIUM/SENNA 50/8.6MG TAB PO SCH (07:27)
[2018-02-24] MEDS: ATORVASTATIN 40 MG TAB PO SCH (07:27)
[2018-02-24] MEDS: DILTIAZEM HCL 120 MG EXT REL CAP PO SCH ×2 (07:27→09:28)
[2018-02-24] MEDS: LEVALBUTEROL 0.63MG/3 ML NEB INH PRN (22:04)
[2018-02-24] MEDS: IPRATROPIUM BROMIDE NEB SOLN 0.02% 2.5 ML VIAL INH PRN (22:04)
--- NOTE | 2018-02-24 22:10 | Progress Note ---
Medicine Progress Note Date & Time of Visit: Feb 24, 2018 at 22:03. Subjective Seen earlier this morning, CALVIN Burger at the bedside throughout the encounter Asked permission from the patient to examine her and she agreed States she feels fine overall Denies shortness of breath, chest pain Denies any other complaints Declining meds for the past couple of days Patient was irritable, we explained the importance of taking her medications on her health Discussed with patient that we encourage her to take her medications so that she will continue to get better Patient agreed to take her medications this morning Objective Last 8 Hrs Date Time Temp Pulse Resp B/P (MAP) Pulse Ox O2 Delivery O2 Flow Rate FiO2 02/24/18 21:43 91 Nasal Cannula 1.0 02/24/18 16:00 93 Nasal Cannula 2.0 02/24/18 15:03 36.6 73 22 137/60 (85) 96 Nasal Cannula 2.0 Physical Exam: General-oriented 2, not in distress, speaking sentences, no accessory muscle use Eyes-anicteric Neck-no JVD Lungs-mild rales at the bases, good air entry, no wheezes noted Heart-normal rate, regular rhythm; no murmur Abdomen- normal bowel sounds, soft, nontender Extremities-grade 1 lower leg edema, no calf tenderness Neuro- alert, oriented x 2, no gross focal deficits Skin- warm & dry Assessment & Plan CHRONIC DIASTOLIC HEART FAILURE February 18, 2018 Still has some bilateral basilar rales and lower leg edema Patient refusing Lasix IV Increase Lasix to 40 mg p.o. twice daily Monitor creatinine February 19, 2018 Breath sounds improving, still has the same lower leg edema Continue Lasix 40 mg twice daily monitor Renal function February 20, 2018 Breath sounds continues to improve Resume to Lasix 40 mg daily Monitor volume status and renal function February 21, 2018 declined physical exam (+) leg edema per RN resume Lasix 40mg BID February 22, 2018 Declining physical exam and labs despite extensive discussion Per RN, patient's breath sounds are clear anteriorly and still has grade 1 bilateral leg edema Continue Lasix 40 daily for today February 23, 2018 Patient with mild rales at the bases grade 1 lower leg edema Declined Lasix yesterday We will give additional Lasix 20 mg p.o. tonight Monitor February 24, 2018 Continue Lasix 40 mg daily Monitor volume status, patient may need additional Lasix ACUTE ON CHRONIC HYPOXEMIC RESPIRATORY FAILURE Mostly from CHF diastolic type Pneumonia resolved Continue O2 supplementation CHRONIC A FIB : INR 2. 8 as of February 23, 2018 INR was trending up, Coumadin held Patient declining blood draw Check INR tomorrow May eventually need Coumadin 2 mg every other day INR daily-if patient continues to decline blood work, we may need to resume her usual Eliquis Heart rate was increased this morning, asymptomatic Likely from not taking diltiazem and metoprolol Encouraged patient to take her medications to avoid going through complications including volume overload and she has agreed to do so today Continue diltiazem and metoprolol CONFUSION /METABOLIC ENCEPHALOPATHY : Resolved Has dementia Appears to be at baseline LEFT KNEE PAIN Status post injection Denies pain HYPOTHYROIDISM : Continue levothyroxine SEVERE AMBULATORY DYSFUNCTION Case management on board working on discharge disposition Full Code DVT PROPHYLAXIS inr 2.8 DISPOSITION Case management on board working on discharge disposition Patient comfortable and agreeable with plan of care Current Inpatient Medications: Current Inpatient Medications Medications (Trade) Dose Ordered Sig/Mak Route Start Time Stop Time Status Last Admin Dose Admin Levothyroxine Sodium (Synthroid Tab) 100 mcg DAILYBB PO 12/16/17 06:30 02/28/18 06:29 02/24/18 06:25 100 MCG Atorvastatin Calcium (Lipitor Tab) 40 mg DAILY PO 01/30/18 11:30 02/28/18 11:29 02/19/18 07:52 40 MG Diltiazem HCl (TIAzac CAP) 120 mg DAILY PO 01/30/18 11:30 02/28/18 11:29 02/24/18 09:28 120 MG Potassium Chloride (Klor-Con Tab) 20 meq DAILY PO 01/30/18 11:30 02/28/18 11:29 02/19/18 07:51 20 MEQ Miconazole Nitrate (Desenex Powder) 1 appln PRN PRN EXT 01/30/18 22:15 03/01/18 22:14 02/23/18 08:52 1 APPLN Trolamine Salicylate (Myoflex Cream) 1 appln UD PRN EXT 02/07/18 14:00 03/09/18 13:59 02/07/18 15:21 1 APPLN Ipratropium [place] (Atrovent 0.02% 0.5MG/2.5ML Neb) 0.5 mg Q4H PRN INH 02/18/18 17:00 8/24/18 16:59 02/21/18 12:32 0.5 MG Levalbuterol (Xopenex 0.63 Mg/ 3 Ml Neb) 0.63 mg Q4H PRN INH 02/18/18 17:00 03/20/18 16:59 02/21/18 12:32 0.63 MG Bacitracin (Bacitracin Oint) 1 appln BID EXT 02/19/18 21:00 03/21/18 20:59 02/24/18 20:31 1 APPLN Senna/Docusate Sodium (Senokot S Tab) 1 tab QAM PO 02/21/18 09:00 03/23/18 08:59 02/21/18 08:23 1 TAB Magnesium Hydroxide (Milk Of Magnesia Susp) 30 ml Q6H PRN PO 02/20/18 18:45 03/22/18 18:44 Furosemide (Lasix Tab) 40 mg DAILY PO 02/23/18 09:00 03/23/18 16:59 02/24/18 07:26 40 MG Metoprolol Succinate (Toprol Xl Tab) 50 mg QAM PO 02/24/18 09:00 03/26/18 08:59 02/24/18 09:28 50 MG
[2018-02-25 00:05] VITALS: O2SAT 91
[2018-02-25] MEDS: LEVOTHYROXINE 100 MCG TAB PO SCH (06:24)
[2018-02-25] MEDS: BACITRACIN OINT 15 GM TUBE EXT SCH (07:47)
[2018-02-25] MEDS: METOPROLOL SUCC 50MG EXT REL TAB PO SCH ×2 (07:48→08:15)
[2018-02-25] MEDS: FUROSEMIDE 40 MG TAB PO SCH ×2 (07:48→08:14)
[2018-02-25] MEDS: DILTIAZEM HCL 120 MG EXT REL CAP PO SCH ×2 (07:48→08:15)
[2018-02-25] MEDS: POTASSIUM CHLORIDE 20 MEQ TABCR PO SCH (07:50)
[2018-02-25] MEDS: DOCUSATE SODIUM/SENNA 50/8.6MG TAB PO SCH (07:50)
[2018-02-25] MEDS: ATORVASTATIN 40 MG TAB PO SCH (07:50)
[2018-02-25 07:57] VITALS: BP 138/75; PULSE 78; TEMP 36.5; O2SAT 94
--- NOTE | 2018-02-25 15:30 | Progress Note ---
Subjective Date of Service: Feb 25, 2018. Subjective Pt evaluation today including: conversation w/ patient, physical exam, lab review, review of studies, review of inpatient medication list Saw/examined the patient in room 250 She's doing okay, underlying dementia, but denying all symptoms at this time In no distress Problem List Medical Problems: (1) Altered mental status Status: Acute (2) Atrial fibrillation Status: Acute (3) Change in mental status Status: Acute (4) CO2 retention Status: Acute (5) Exacerbation of asthma Status: Acute (6) Respiratory distress Status: Acute (7) UTI (urinary tract infection) Status: Acute Medications Current Inpatient Medications Medications (Trade) Dose Ordered Sig/Mak Route Start Time Stop Time Status Last Admin Dose Admin Levothyroxine Sodium (Synthroid Tab) 100 mcg DAILYBB PO 12/16/17 06:30 02/28/18 06:29 02/25/18 06:24 100 MCG Atorvastatin Calcium (Lipitor Tab) 40 mg DAILY PO 01/30/18 11:30 02/28/18 11:29 02/19/18 07:52 40 MG Diltiazem HCl (TIAzac CAP) 120 mg DAILY PO 01/30/18 11:30 02/28/18 11:29 02/24/18 09:28 120 MG Potassium Chloride (Klor-Con Tab) 20 meq DAILY PO 01/30/18 11:30 02/28/18 11:29 02/19/18 07:51 20 MEQ Miconazole Nitrate (Desenex Powder) 1 appln PRN PRN EXT 01/30/18 22:15 03/01/18 22:14 02/23/18 08:52 1 APPLN Trolamine Salicylate (Myoflex Cream) 1 appln UD PRN EXT 02/07/18 14:00 03/09/18 13:59 02/07/18 15:21 1 APPLN Ipratropium [place] (Atrovent 0.02% 0.5MG/2.5ML Neb) 0.5 mg Q4H PRN INH 02/18/18 17:00 03/20/18 16:59 02/24/18 22:04 0.5 MG Levalbuterol (Xopenex 0.63 Mg/ 3 Ml Neb) 0.63 mg Q4H PRN INH 02/18/18 17:00 03/20/18 16:59 02/24/18 22:04 0.63 MG Bacitracin (Bacitracin Oint) 1 appln BID EXT 02/19/18 21:00 03/21/18 20:59 02/25/18 07:47 1 APPLN Senna/Docusate Sodium (Senokot S Tab) 1 tab QAM PO 02/21/18 09:00 03/23/18 08:59 02/21/18 08:23 1 TAB Magnesium Hydroxide (Milk Of Magnesia Susp) 30 ml Q6H PRN PO 02/20/18 18:45 03/22/18 18:44 Furosemide (Lasix Tab) 40 mg DAILY PO 02/23/18 09:00 03/23/18 16:59 02/24/18 07:26 40 MG Metoprolol Succinate (Toprol Xl Tab) 50 mg QAM PO 02/24/18 09:00 03/26/18 08:59 02/24/18 09:28 50 MG Objective Vital Signs Date Time Temp Pulse Resp B/P (MAP) Pulse Ox O2 Delivery O2 Flow Rate FiO2 02/25/18 08:00 Nasal Cannula 2.0 02/25/18 07:57 36.5 78 20 138/75 (96) 94 Nasal Cannula 1.0 02/25/18 00:05 91 Nasal Cannula 1.0 02/24/18 23:54 36.6 89 20 140/82 (101) 94 Nasal Cannula 2.0 02/24/18 22:06 78 18 94 Nasal Cannula 1.0 02/24/18 21:43 91 Nasal Cannula 1.0 02/24/18 20:00 91 Nasal Cannula 1.0 02/24/18 16:00 93 Nasal Cannula 2.0 Physical Exam General Appearance: no apparent distress, + obese Respiratory/Chest: no respiratory distress, no accessory muscle use, + decreased breath sounds Cardiovascular: regular rate, rhythm, no murmur Extremities: + swelling (+1 pitting edema b/l LE), + pertinent finding Assessment and Plan 02/25 - patient has been on Lasix 40mg daily for her chronic diastolic CHF - is on Coumadin for atrial fibrillation; on Toprol and Diltiazem for heart rate control - O2 and nebs as needed for her breathing 02/10 - has had multiple issues with breathing - required bipap earlier this week - plan for now is to continue Lasix 40mg daily - give Coumadin, monitor INR - oxygen as needed, breathing treatments as needed 02/02 - INR is 2.0 - continue Coumadin 1mg daily - Lasix 40mg daily, potassium 20meq daily - continue FLORENCIA stockings - continue nebs as needed - placement issue 02/01 - continue Coumadin 1mg; INR is 2.0, check in AM - continue Lasix 40mg 01/31 - increase Coumadin to 1mg daily - continue Lasix 40mg daily - FLORENCIA stockings in place - nebs as needed 01/30 - today's plan is to change her morning medications to around 11:30AM; comes to the hospital around 11AM and she is more compliant when he is around. He can also witness patient getting all the medications that she needs. - increase Lasix to 40mg - continue Coumadin 0.5mg - check potassium, magnesium and INR in AM (01/31) 01/29 - Coumadin 0.5mg today, recheck INR in AM - giving Lasix 40mg today due to shortness of breath and LE edema 01/28 - hold Coumadin - Lasix 20mg daily, monitor K 01/27 - hold Coumadin again - will likely need 2mg of Coumadin instead of 3mg - Lasix 20mg daily for now - monitor K 01/26 - saw the patient today - INR is >2; continue Coumadin 3mg and monitor in AM - will give Lasix 20mg daily Acute on Chronic Hypoxic Respiratory Failure - Improved possibly secondary to pneumonia - completed antibiotic course Metabolic Encephalopathy - resolved - underlying dementia, appears to be at baseline Chronic Diastolic HF - will give 40mg of Lasix (01/25); increased from 20mg daily Chronic A. Fib - continue Diltiazem and Toprol - patient is now on Coumadin, INR is 2.2 - will give Coumadin 3mg and recheck INR - has had supratherapeutic INR with 5mg of Coumadin L Knee pain - resolved Hypothyroidism - continue Synthroid Ambulatory Dysfunction - PT/OT - needs SNF discharge DVT ppx - Coumadin FULL CODE
[2018-02-25] MEDS ORDERED: BCTO EXT (15:34)
[2018-02-25] MEDS ORDERED: LSX40 PO (15:34)
[2018-02-25] MEDS ORDERED: ATRINS INH (15:34)
[2018-02-25] MEDS ORDERED: XPNINS INH (15:34)
--- NOTE | 2018-02-25 15:36 | Discharge Instructions ---
Discharge Instructions Date of Service Feb 25, 2018. Admission Reason for Admission: Pneumonia Discharge Discharge Diagnosis / Problem: Pneumonia, Chronic Diastolic CHF Discharge Goals Goal(s): Decrease discomfort, Improve function, Diagnostic testing, Therapeutic intervention Activity Recommendations Activity Limitations: resume your previous activity . Instructions / Follow-Up Instructions / Follow-Up Please check INR in 2-3 days; should be on Coumadin 2mg -- and 1mg the rest of the week Patient to be on Lasix 40mg daily and should receive additional doses if worsening overload Potassium replacement while on Lasix Current Hospital Diet Patient's current hospital diet: AHA Diet (Heart Healthy), Low Sodium Diet (2gm Na) Discharge Diet Recommended Diet: AHA Diet (Heart Healthy), Low Sodium Diet (2gm Na) Pending Studies Studies pending at discharge: no Laboratory Results Lipid Panel Test 12/15/17 04:20 Range/Units Triglycerides Level 39 0-150 mg/dl Cholesterol Level 143 0-200 mg/dl HDL Cholesterol 63 mg/dl Cholesterol/HDL Ratio 2.3 LDL Cholesterol, Calculated 72 mg/dl Medical Emergencies . Who to Call and When: Medical Emergencies: If at any time you feel your situation is an emergency, please call 911 immediately. . Non-Emergent Contact Non-Emergency issues call your: Primary Care Provider . . "Provider Documentation" section prepared by Roney Sneed. .
--- NOTE | 2018-02-25 15:39 | Discharge Summary ---
Discharge Summary Date of Service Feb 25, 2018. Discharge Summary Admission Date: December 15, 2017 at 17:20 Discharge Date: Feb 25, 2018 Discharge Disposition: [facility] Principal Diagnosis: Acute on Chronic Hypoxic Respiratory Failure - Improved possibly secondary to pneumonia Metabolic Encephalopathy - resolved Chronic Diastolic HF Chronic A. Fib L Knee pain - resolved Hypothyroidism Ambulatory Dysfunction Dementia Medication Reconciliation New Medications: Bacitracin (Bacitracin Zinc) 45 Appln/15 Gm Oint 1 APPLN EXT BID for 30 Days, #1 TUBE Furosemide (Furosemide) 40 Mg Tab 40 MG PO DAILY for 30 Days, #30 TAB Ipratropium [place] (Ipratropium [place]) 0.5 Mg/2.5 Ml Nebu 0.5 MG INH Q4H PRN for Shortness of Breath for 30 Days, #300 ML Levalbuterol (Levalbuterol HCl) 0.63 Mg/3 Ml Nebu 0.63 MG INH Q4H PRN for Shortness of Breath for 30 Days, #360 ML Continued Medications: Acetaminophen Tab (Tylenol) 325 Mg Tab 650 MG PO Q6H PRN for Pain, TAB Aspirin (Aspir-81) 81 Mg Tab 1 TAB PO DAILY for 30 Days, #30 TAB 5 Refills Atorvastatin (Lipitor) 40 Mg Tab 40 MG PO DAILY Bisacodyl (Dulcolax) 10 Mg Sup 1 SUPP LA DAILY PRN for Constipation, SUP Diltiazem Hcl Ext Rel (Tiazac) 120 Mg Capcr 120 MG PO DAILY, CAP Latanoprost (Latanoprost) 37 Drops/2.5 Ml Soln 1 DROP OPB HS Levothyroxine Sodium (Levothyroxine Sodium) 100 Mcg Tab 1 TAB PO DAILY for 30 Days, #30 TAB 5 Refills Magnesium Hydroxide (Milk Of Magnesia) 30 Ml Susp 30 ML PO DAILY PRN for constipation, ML Metoprolol Succ (Toprol Xl) (Toprol-Xl) 50 Mg Tabcr 50 MG PO DAILY, #30 TAB Oxybutynin Chloride (Oxybutynin Chloride Er) 5 Mg Tab 10 MG PO DAILY for 90 Days, #180 TAB 3 Refills Potassium Ext Rel (Klor-Con) 20 Meq Tabcr 20 MEQ PO DAILY, TAB Sodium Phosphates (Fleet Enema Six Pack) 1 Karen Karen 1 DOSE RE DAILY PRN for Constipation Discontinued Medications: Albuterol Sulf (Proventil 0.083% 2.5MG/3ML) 2.5 Mg/3 Ml Nebu 2.5 MG INH Q4H PRN for SOB/Wheezing, EA Apixaban (Eliquis) 2.5 Mg Tab 2.5 MG PO BID for 30 Days, #60 TAB Dexamethasone Sod Phos (Dexamethasone Sodium Phos) 10 Mg/Ml Inj 40 MG IM BID for 3 Days Furosemide (Lasix) 20 Mg Tab 20 MG PO DAILY, TAB Furosemide (Furosemide) 10 Mg/Ml Soln 40 MG IM DAILY for 3 Days Levofloxacin (Levaquin) 500 Mg Tab 1 TAB PO DAILY for 7 Days, #7 TAB Lisinopril (Zestril) 10 Mg Tab 10 MG PO DAILY, #30 Admission Information HPI (per Admitting provider): 87-year-old female who presents to the ED from [facility] for evaluation of altered mental status. At the time my exam, patient refuses to answer my questions as well as for me to perform a physical exam on her. Per review of ED documentation, patient was difficult to arouse this morning. She was also recently diagnosed pneumonia at [facility]. She has been receiving IM steroids and oral Levaquin. She also has apparently been refusing her medications the past couple of days. Patient was recently admitted to [facility] 11/05 through 11/17 for pneumonia and atrial fibrillation. It was highly advised for the patient to go to a nursing facility however and patient refused and patient was discharged home. Since that time, temporary court order was obtained to arrange for patient to be placed in a halfway. Follow-up court order for permanent guardianship is scheduled for later this month. In the ED, patient's chest x-ray is suggestive of left basilar pneumonia. She is also hypoxic with oxygen saturations in the high 80s. She is refusing oxygen at the time my exam. Heart rate is also mildly elevated in the low 100s. Labs show a lactic acid of 4.5 but are otherwise unremarkable. Patient was ordered IV Solu-Medrol , IV Zosyn, IV vancomycin in the ED however she has refused an IV to be placed. She was given a DuoNeb treatment. Physical Exam (per Admitting): Physical exam refused by patient She is sitting up in bed in no acute distress. Hospital Course 02/25 - patient has been on Lasix 40mg daily for her chronic diastolic CHF - is on Coumadin for atrial fibrillation; on Toprol and Diltiazem for heart rate control - O2 and nebs as needed for her breathing 02/10 - has had multiple issues with breathing - required bipap earlier this week - plan for now is to continue Lasix 40mg daily - give Coumadin, monitor INR - oxygen as needed, breathing treatments as needed 02/02 - INR is 2.0 - continue Coumadin 1mg daily - Lasix 40mg daily, potassium 20meq daily - continue FLORENCIA stockings - continue nebs as needed - placement issue 02/01 - continue Coumadin 1mg; INR is 2.0, check in AM - continue Lasix 40mg 01/31 - increase Coumadin to 1mg daily - continue Lasix 40mg daily - FLORENCIA stockings in place - nebs as needed 01/30 - today's plan is to change her morning medications to around 11:30AM; comes to the hospital around 11AM and she is more compliant when he is around. He can also witness patient getting all the medications that she needs. - increase Lasix to 40mg - continue Coumadin 0.5mg - check potassium, magnesium and INR in AM (01/31) 01/29 - Coumadin 0.5mg today, recheck INR in AM - giving Lasix 40mg today due to shortness of breath and LE edema 01/28 - hold Coumadin - Lasix 20mg daily, monitor K 01/27 - hold Coumadin again - will likely need 2mg of Coumadin instead of 3mg - Lasix 20mg daily for now - monitor K 01/26 - saw the patient today - INR is >2; continue Coumadin 3mg and monitor in AM - will give Lasix 20mg daily Acute on Chronic Hypoxic Respiratory Failure - Improved possibly secondary to pneumonia - completed antibiotic course Metabolic Encephalopathy - resolved - underlying dementia, appears to be at baseline Chronic Diastolic HF - will give 40mg of Lasix (01/25); increased from 20mg daily Chronic A. Fib - continue Diltiazem and Toprol - patient is now on Coumadin, INR is 2.2 - will give Coumadin 3mg and recheck INR - has had supratherapeutic INR with 5mg of Coumadin L Knee pain - resolved Hypothyroidism - continue Synthroid Ambulatory Dysfunction - PT/OT - needs SNF discharge DVT ppx - Coumadin FULL CODE Total time spent on discharge = 60 minutes This includes examination of the patient, discharge planning, medication reconciliation, and communication with other providers. Discharge Instructions Please check INR in 2-3 days; should be on Coumadin 2mg and 1mg the rest of the week Patient to be on Lasix 40mg daily and should receive additional doses if worsening overload Potassium replacement while on Lasix
[2018-02-25 15:54] VITALS: BP 138/75; PULSE 78; TEMP 36.5; O2SAT 94
== END 2018-02-25 16:00 | DRG 193 ==
LOC: EDBD 10:40 → C.EDC 10:45 → C.MED 17:20 → ENRESERV 17:39 → C.MSN 12-18 15:30 → ENRESERV 02-03 09:36 → C.2E 02-03 10:27 → ENRESERV 02-04 16:31 → CANRESERV 02-04 16:31 → ENRESERV 02-04 16:43 → C.MS2W 02-04 17:33
PROVIDERS: ADMIT Internal Medicine; ATTEND Family Medicine
PROC: 3E0U3GC Introduction of Other Therapeutic Substance into Joints, Percutaneous Approach (ICD-10-PCS; principal; 2017-12-26)
DX: J18.9 Pneumonia, unspecified organism (principal); J96.21 Acute and chronic respiratory failure with hypoxia; G93.41 Metabolic encephalopathy; J44.1 Chronic obstructive pulmonary disease with (acute) exacerbation; E87.2 Acidosis; J44.0 Chronic obstructive pulmonary disease with (acute) lower respiratory infection; I11.0 Hypertensive heart disease with heart failure; I50.32 Chronic diastolic (congestive) heart failure; R29.6 Repeated falls; I48.2 Chronic atrial fibrillation; F03.90 Unspecified dementia, unspecified severity, without behavioral disturbance, psychotic disturbance, mood disturbance, and anxiety; E03.9 Hypothyroidism, unspecified; M17.12 Unilateral primary osteoarthritis, left knee; R60.0 Localized edema; I87.8 Other specified disorders of veins; G47.33 Obstructive sleep apnea (adult) (pediatric); S80.812A Abrasion, left lower leg, initial encounter; Z75.1 Person awaiting admission to adequate facility elsewhere; Z74.8 Other problems related to care provider dependency; Z65.3 Problems related to other legal circumstances; Z79.01 Long term (current) use of anticoagulants; Z79.2 Long term (current) use of antibiotics; Z79.52 Long term (current) use of systemic steroids; Z79.899 Other long term (current) drug therapy; Z95.0 Presence of cardiac pacemaker; Z88.0 Allergy status to penicillin; Z91.048 Other nonmedicinal substance allergy status; Z91.81 History of falling; X58.XXXA Exposure to other specified factors, initial encounter; Z91.14 Patient's other noncompliance with medication regimen; Z91.19 Patient's noncompliance with other medical treatment and regimen

== ENCOUNTER → 2017-12-15 | Outpatient (CLI) | payer OTHER ==
[~2017-12-15] MED LIST changes: +ACET-1256 PO; +ACET-1693 PO; +ATRINS NEB; +BISA10SU3 PR; +DILT120C68 PO; +DOCU1TAB6 PO; +ELQ25 PO; +FURO-85 PO; +FURO10IN2 IM; -KFL500 PO; +LEVO500T19 PO; +LEVO88TA3 PO; +LNX125 PO; +METH1TAB81 PO; +MOML PO; +PANT40TA PO; +POTA-639 PO; +SODI1ENE RE; +[UNRECOGNIZED DRUG - CODE] IM
[2017-12-15 08:34] LABS: HEMATOCRIT 39.6 % (37-47); HEMOGLOBIN 12.9 g/dL (12.0-16.0); MEAN CELL VOLUME 96.1 fL (80-100); MEAN CORPUSCULAR HEMOGLOBIN 31.3 pg (25-34); MEAN CORPUSCULAR HGB CONC 32.6 g/dl (32-36); MEAN PLATELET VOLUME 9.3 fL (7.4-10.4); PLATELET COUNT 388 K/uL (130-400); RED CELL DISTRIBUTION WIDTH CV 14.8 % (11.5-14.5); RED CELL DISTRIBUTION WIDTH SD 51.8 fL (36.4-46.3); WHITE BLOOD COUNT 5.94 K/uL (4.8-10.8)
[2017-12-15 09:03] LABS: ALBUMIN 2.8 gm/dl (3.4-5.0); ALKALINE PHOSPHATASE 90 U/L (45-117); ALT/SGPT 21 U/L (12-78); AST/SGOT 17 U/L (15-37); BLOOD UREA NITROGEN 14 mg/dl (7-18); CALCIUM 9.1 mg/dl (8.5-10.1); CARBON DIOXIDE 30 mmol/L (21-32); CHOLESTEROL 143 mg/dl (0-200); CREATININE 1.03 mg/dl (0.60-1.20); GLUCOSE 164 mg/dl (70-99); LDL CHOLESTEROL CALCULATED 72 mg/dl; POTASSIUM 4.4 mmol/L (3.5-5.1); SODIUM 134 mmol/L (136-145); TOTAL PROTEIN 6.8 gm/dl (6.4-8.2)
== END ==
LOC: C.LABUPNIT 08:02
PROVIDERS: ATTEND Nurse Practitioner Family
DX: E11.9 Type 2 diabetes mellitus without complications (principal); E55.9 Vitamin D deficiency, unspecified; E75.6 Lipid storage disorder, unspecified; R03.0 Elevated blood-pressure reading, without diagnosis of hypertension; R68.89 Other general symptoms and signs; E34.9 Endocrine disorder, unspecified

== ENCOUNTER → 2018-02-28 | Outpatient (CLI) | payer OTHER ==
[~2018-02-28] MED LIST changes: -ACET-1256 PO; +ACET-1693 PO; -ALBINS/ INH; -ALBU18002 INH; +ASPI-232 PO; -ASPI81TA28 PO; +ATRINS INH; -ATRINS NEB; +BCTO EXT; +BISA10SU3 PR; -DOCU1TAB6 PO; -ELQ25 PO; -FURO-85 PO; +LEVO100T7 PO; -LEVO88TA3 PO; -LISI-461 PO; -LNX125 PO; +LSX40 PO; -METH1TAB81 PO; +METO50TA8 PO; -PANT40TA PO; +SODI1ENE RE; -TPRSR/50 PO; +XPNINS INH
[2018-02-28 06:55] LABS: HEMATOCRIT 37.4 % (37-47); HEMOGLOBIN 11.7 g/dL (12.0-16.0); MEAN CELL VOLUME 97.4 fL (80-100); MEAN CORPUSCULAR HEMOGLOBIN 30.5 pg (25-34); MEAN CORPUSCULAR HGB CONC 31.3 g/dl (32-36); MEAN PLATELET VOLUME 9.7 fL (7.4-10.4); PLATELET COUNT 264 K/uL (130-400); RED CELL DISTRIBUTION WIDTH CV 15.2 % (11.5-14.5); RED CELL DISTRIBUTION WIDTH SD 54.1 fL (36.4-46.3); WHITE BLOOD COUNT 5.37 K/uL (4.8-10.8)
[2018-02-28 07:06] LABS: BLOOD UREA NITROGEN 13 mg/dl (7-18); CREATININE 0.63 mg/dl (0.60-1.20); GLUCOSE 109 mg/dl (70-99)
[2018-02-28 07:07] LABS: ALBUMIN 1.5 gm/dl (3.4-5.0); ALKALINE PHOSPHATASE 37 U/L (45-117); ALT/SGPT 8 U/L (12-78); AST/SGOT 11 U/L (15-37); CARBON DIOXIDE 38 mmol/L (21-32); POTASSIUM 4.6 mmol/L (3.5-5.1); SODIUM 139 mmol/L (136-145); TOTAL PROTEIN 3.2 gm/dl (6.4-8.2)
== END ==
LOC: C.LABUPNIT 13:06
PROVIDERS: ATTEND Nurse Practitioner Family
DX: E78.5 Hyperlipidemia, unspecified (principal)

== ENCOUNTER 2018-03-12 15:15 | Inpatient (IN) | payer OTHER ==
[2018-03-12] VITALS (8 sets, daily range): BP systolic 110–161; BP diastolic 54–87; PULSE 60–77; TEMP 36.3–36.6; O2SAT 91–100; BMI 37.5
[~2018-03-12] VITALS: Ht 165.1 cm; Wt 97.9 kg
[~2018-03-12 15:15] MED LIST changes: -DILT120C68 PO; +KETAMINE HCL INJ 50 MG/ML 10 ML VIAL IV ONE; -LEVO100T7 PO; -LPT40 PO; -OXYB5TAB PO; -POTA-639 PO; +SUCCINYLCHOLINE CHLORIDE 20 MG/ML 10 ML VIAL IV ONE; -XLTOPS OPB
--- NOTE | 2018-03-12 15:51 | DIAGNOSTIC IMAGING REPORT ---
CHEST ONE VIEW PORTABLE CLINICAL HISTORY: fever dyspnea COMPARISON STUDY: 02/03/2018 FINDINGS: Moderate stable cardiomegaly. Permanent bipolar cardiac pacemaker. Interval bibasilar parenchymal infiltrative change versus components of congestive failure. IMPRESSION: Bibasilar infiltrates versus congestive failure The above report was generated using voice recognition software. It may contain grammatical, syntax or spelling errors. Electronically signed by: Jason Last M.D. 03/12/2018 3:49 PM Dictated Date/Time: 03/12/2018 3:48 PM
--- NOTE | 2018-03-12 15:54 | EMERGENCY ROOM VISIT NOTE ---
History First contact with patient: 16:42 Stated Complaint: AMS/LETHARGIC/DECREASED SPO2 History of Present Illness The patient is a 87 year old female who presents to the Emergency Room with complaints of AMS from earlier today. She lives at [facility]. She is unable to communicate very well however she can squeeze my hand on command and knows that she is in the hospital. History is obtained from EMS. She had good vital signs and saturations in the field. Per chart review her last hospitalization was from November 2017 to February 25 while guardianship was obtained. She was treated with pneumonia. Other HPI is limited due to pt's baseline mental status. VSS were excellent while patient is one 15L non rebreather mask. Review of Systems Unable to obtain accurate ROS due to pt's baseline medical condition. Past Medical/Surgical History Medical Problems: (1) Atrial fibrillation (2) Carotid artery disease (3) Cerebrovascular disease (4) COPD (chronic obstructive pulmonary disease) (5) Dementia (6) Diastolic CHF (7) Hypertension (8) Hypothyroidism (9) Knee Joint Replacement Status (10) Symptomatic bradycardia (11) Urinary incontinence Surgical Problems: (1) S/P placement of cardiac pacemaker Family History Cancer Diabetes mellitus Heart disease Social History Smoking Status: Never Smoker Marital Status: Housing Status: lives with family Current/Historical Medications Scheduled Aspirin (Aspir-81), 1 TAB PO DAILY Atorvastatin (Lipitor), 40 MG PO DAILY Bacitracin (Bacitracin Zinc), 1 APPLN EXT BID Diltiazem Hcl Ext Rel (Tiazac), 120 MG PO DAILY Furosemide (Furosemide), 40 MG PO DAILY Latanoprost (Latanoprost), 1 DROP OPB HS Levothyroxine Sodium (Levothyroxine Sodium), 1 TAB PO DAILY Metoprolol Succ (Toprol Xl) (Toprol-Xl), 50 MG PO DAILY Oxybutynin Chloride (Oxybutynin Chloride Er), 10 MG PO DAILY Potassium Ext Rel (Klor-Con), 20 MEQ PO DAILY Scheduled PRN Acetaminophen Tab (Tylenol), 650 MG PO Q6H PRN for Pain Bisacodyl (Dulcolax), 1 SUPP OK DAILY PRN for Constipation Ipratropium [place] (Ipratropium [place]), 0.5 MG INH Q4H PRN for Shortness of Breath Levalbuterol (Levalbuterol HCl), 0.63 MG INH Q4H PRN for Shortness of Breath Magnesium Hydroxide (Milk Of Magnesia), 30 ML PO DAILY PRN for constipation Sodium Phosphates (Fleet Enema Six Pack), 1 DOSE RE DAILY PRN for Constipation Physical Exam Vital Signs Date Time Temp Pulse Resp B/P (MAP) Pulse Ox O2 Delivery O2 Flow Rate FiO2 03/12/18 16:39 100 03/12/18 16:38 100 03/12/18 16:15 36.7 104 28 120/ 100 Non-Rebreather 03/12/18 16:15 100 Non-Rebreather 03/12/18 16:01 68 Physical Exam Gen: No acute distress. Morbidly obese. HEENT: Head - normocephalic and atraumatic. Pupils are equal, round, and reactive to light. Extraocular eye muscles are intact and sclera are anicteric. Ears - bilaterally patent canals with noninjected tympanic membranes and no evidence of hemotympanum. Nose - moist nasal mucosa without discharge. Mouth - moist buccal mucosa. Oropharynx is nonerythematous and there is no tonsillar exudate or edema noted. Has Dentures. Neck: Supple; no JVD, nuchal rigidity, cervical lymphadenopathy, or auscultated bruits. Heart: Regular rate and rhythm. There is a normal S1 and S2 with no murmurs, clicks, or gallops appreciated. Lungs: Clear to auscultation bilaterally with no wheezes, rales, or rhonchi. Abdomen: Soft, completely nontender, nondistended, with good bowel sounds. There are no palpable pulsatile masses or hepatosplenomegaly. There is no guarding, rigidity, or rebound noted. Extremities: No evidence of cyanosis, clubbing. 2+ putting edema bilaterally. There are easily palpable peripheral pulses. Neuro:The patient is awake and alert, non verbal, verbalizes yes when asked if she is in the hospital, she can also squeeze my fingers on command. Medical Decision & Procedures Laboratory Results Test 03/12/18 15:29 03/12/18 15:42 03/12/18 16:05 03/12/18 16:12 Creatine Kinase MB Ratio (0-3.0) Venous Blood pH 7.21 (7.36-7.41) Venous Blood Partial Pressure CO2 105 mmHg (38.0-50.0) Venous Blood Partial Pressure O2 38 mmHg Venous Blood HCO3 42 mmol/L Venous Blood Oxygen Saturation 61.0 % Venous Blood Base Excess 9.8 mEq/L Test 03/12/18 16:13 Bedside Lactic Acid Venous 1.18 mmol/L (0.90-1.70) Procedure CHEST ONE VIEW PORTABLE CLINICAL HISTORY: fever dyspnea COMPARISON STUDY: 02/03/2018 FINDINGS: Moderate stable cardiomegaly. Permanent bipolar cardiac pacemaker. Interval bibasilar parenchymal infiltrative change versus components of congestive failure. IMPRESSION: Bibasilar infiltrates versus congestive failure CHEST ONE VIEW PORTABLE CLINICAL HISTORY: Intubation. COMPARISON STUDY: Chest radiograph March 12, 2018 at 3:34 PM. FINDINGS: Tip of endotracheal tube is 3.3 cm above the chemo. Dual lead left-sided pacemaker is in place. There is no pneumothorax. Small bilateral pleural effusions are noted. Interstitial thickening suggests pulmonary edema. Moderate cardiomegaly is noted. Left greater than right bibasilar opacities are present. Old right-sided rib fractures are incidentally noted. IMPRESSION: 1. Tip of endotracheal tube 3.3 cm above the chemo. 2. Interstitial thickening suggestive of pulmonary edema. 3. Small bilateral pleural effusions with bibasilar opacities which favor atelectasis although consolidation could appear similar. ECG Per My Interpretation Indication: altered mental status Rate (beats per minute): 70 Rhythm: normal sinus (with PVCs) Findings: left axis deviation Comparison ECG Date: ventricular rate has decreased by 44 Medical Decision The patient's care and disposition was discussed with Dr. Cifuentes, Attending ED Physician. This is a 87F with AMS. Differential diagnosis include encephalopathy, UTI, CVA , pneumonia, sepsis, metabolic, electrolyte abnormalities, cardiac sources, intracerebral event, toxicologic, neurologic, as well as others were entertained. Triage Nursing notes were reviewed. ED Course included an extensive history and physical exam, labs, X-ray, CT Head and Abdomen. 3:30pm - Pt was seen and examined at bedside with Dr. Cifuentes and initial orders were placed. Patient is currently on non rebreather mask 15L with oxygen saturation of 99%. Between 3:30 to 4:30 pt's condition declined, Dr. Cifuentes was made aware and the patient was placed in room B1. Labs significant for hyponatremia and hyperkalemia. UA results are not back. Lactic Acid is WNL. 4:30pm - Pt was intubated at approximately 4:30pm for worsening of respiratory symptoms. 5:00pm - Audio Operator was contacted by Dr. Cifuentes and patient will be placed in the ICU. Head Trauma GCS Score: 12 GCS score of 4 - eye opening spontaneously 2 - incomprehensible sounds 6 - obeys commands Impression Primary Impression: Encephalopathy Departure Information Dispostion Admitted as an inpatient Condition POOR Referrals Feder[facility] [place] (PCP) Resident Involvement: Resident Care Provided Care Provided: Adult ED
[2018-03-12] MEDS ORDERED: CEFEPIME IV 1,000 MG in DEXTROSE 5% 100ML 100 ML IV STA (16:05)
[2018-03-12] MEDS ORDERED: RAPID SEQUENCE INDUCTION BAG ONE (16:21)
[2018-03-12] MEDS ORDERED: PROPOFOL IV EMULSION 10 MG/ML 100 ML VIAL IV STA (16:32)
[2018-03-12 16:44] LABS: ISTAT CREATININE 1.1 mg/dl (0.6-1.3); ISTAT IONIZED CALCIUM 1.22 mmol/l (1.12-1.32); ISTAT POTASSIUM 5.6 mEq/L (3.3-5.0); ISTAT SODIUM 132 mEq/L (135-144)
[2018-03-12] MEDS ORDERED: LPT40 PO (16:53)
[2018-03-12] MEDS ORDERED: XLTOPS OPB (16:53)
[2018-03-12 16:55] LABS: BASO % 0.4 %; BASO ABS # 0.03 K/uL (0-0.2); EOS % 1.2 %; EOS ABS # 0.09 K/uL (0-0.5); HEMATOCRIT 38.3 % (37-47); HEMOGLOBIN 12.1 g/dL (12.0-16.0); IG# 0.01 K/uL (0.00-0.02); LYMPH % 12.2 %; LYMPH ABS # 0.91 K/uL (1.2-3.4); MEAN CELL VOLUME 96.5 fL (80-100); MEAN CORPUSCULAR HEMOGLOBIN 30.5 pg (25-34); MEAN CORPUSCULAR HGB CONC 31.6 g/dl (32-36); MEAN PLATELET VOLUME 9.2 fL (7.4-10.4); MONO ABS # 0.89 K/uL (0.11-0.59); NEUT % 74.1 %; PLATELET COUNT 236 K/uL (130-400); RED CELL DISTRIBUTION WIDTH CV 15.6 % (11.5-14.5); RED CELL DISTRIBUTION WIDTH SD 54.7 fL (36.4-46.3); WHITE BLOOD COUNT 7.43 K/uL (4.8-10.8)
[2018-03-12 16:56] LABS: ISTAT POTASSIUM 5.1 mEq/L (3.3-5.0); ISTAT SODIUM 128 mEq/L (135-144)
--- NOTE | 2018-03-12 17:00 | DIAGNOSTIC IMAGING REPORT ---
CHEST ONE VIEW PORTABLE CLINICAL HISTORY: Intubation. COMPARISON STUDY: Chest radiograph March 12, 2018 at 3:34 PM. FINDINGS: Tip of endotracheal tube is 3.3 cm above the chemo. Dual lead left-sided pacemaker is in place. There is no pneumothorax. Small bilateral pleural effusions are noted. Interstitial thickening suggests pulmonary edema. Moderate cardiomegaly is noted. Left greater than right bibasilar opacities are present. Old right-sided rib fractures are incidentally noted. IMPRESSION: 1. Tip of endotracheal tube 3.3 cm above the chemo. 2. Interstitial thickening suggestive of pulmonary edema. 3. Small bilateral pleural effusions with bibasilar opacities which favor atelectasis although consolidation could appear similar. Electronically signed by: Fly Hernandez M.D. 03/12/2018 4:59 PM Dictated Date/Time: 03/12/2018 4:53 PM
[2018-03-12] MEDS ORDERED: ASPI81TA28 PO (17:05)
--- NOTE | 2018-03-12 17:13 | DIAGNOSTIC IMAGING REPORT ---
CT SCAN OF THE BRAIN WITHOUT IV CONTRAST CLINICAL HISTORY: Change in mental status. COMPARISON STUDY: CT of the brain dated 11/25/2016. TECHNIQUE: Unenhanced axial CT scan of the brain is performed from the vertex to the skull base. A dose lowering technique was utilized adhering to the principles of ALARA. The patient was scanned twice due to motion artifact. The examination is compromised by motion. CT DOSE: 1848.54 mGy.cm FINDINGS: Brain parenchyma: There are age-related involutional changes noting advanced confluent subcortical and periventricular microangiopathic change. Chronic lacunar infarcts identified in the left caudate head and the left basal ganglia. There is no hemorrhage, mass effect, or evidence of acute territorial ischemia by CT criteria. Kemp-white matter is preserved. No extra-axial fluid collection is seen. Ventricles, sulci, cisterns: Prominent secondary to involutional change. Intracranial vasculature: There is atherosclerotic calcification of the cavernous carotid and vertebral arteries. Calvarium: Unremarkable. Soft tissues: Frontal scalp contusion is suggested. Sinuses and mastoids: The there is subtotal opacification of the left maxillary antrum. Additional calcifications are noted. Thickening and sclerosis of the sinus wall indicates chronicity. Mild mucosal thickening is seen within the ethmoid sinuses. Soft tissue material is also seen within the nasal cavity. The mastoid air cells are well pneumatized. Orbits: The bony orbits are grossly intact. IMPRESSION: 1. Senescent changes as above. There is no hemorrhage, mass effect, or evidence of acute territorial ischemia by CT criteria noting a motion compromised examination. 2. Paranasal sinus disease as above. Electronically signed by: Nicolás Ochoa M.D. 03/12/2018 5:11 PM Dictated Date/Time: 03/12/2018 5:07 PM
[2018-03-12 17:19] LABS: ALBUMIN 3.3 gm/dl (3.4-5.0); ALKALINE PHOSPHATASE 86 U/L (45-117); ALT/SGPT 20 U/L (12-78); AST/SGOT 22 U/L (15-37); BLOOD UREA NITROGEN 18 mg/dl (7-18); CALCIUM 9.3 mg/dl (8.5-10.1); CARBON DIOXIDE 34 mmol/L (21-32); CKMB 1.6 ng/ml (0.5-3.6); CREATININE 1.06 mg/dl (0.60-1.20); GLUCOSE 109 mg/dl (70-99); POTASSIUM 4.7 mmol/L (3.5-5.1); SODIUM 129 mmol/L (136-145); TOTAL PROTEIN 7.6 gm/dl (6.4-8.2)
--- NOTE | 2018-03-12 17:22 | DIAGNOSTIC IMAGING REPORT ---
CT OF THE ABDOMEN AND PELVIS WITHOUT CONTRAST CLINICAL HISTORY: Sepsis. COMPARISON STUDY: Renal ultrasound November 26, 2016. TECHNIQUE: Axial images of the abdomen and pelvis were obtained without IV contrast. Images were reviewed in the axial, sagittal, and coronal planes. A dose lowering technique was utilized adhering to the principles of ALARA. FINDINGS: Heart is moderately enlarged. Pacer leads are partially imaged. Old bilateral rib fractures are noted. There is no pericardial effusion. Small to moderate right and small left pleural effusions are partially imaged. Associated opacities favor atelectasis. Evaluation of the abdomen and pelvis is suboptimal on this unenhanced exam. No pneumatosis, free air or portal venous gas is present. There is no evidence for a bowel obstruction. There is slight nodularity of the liver surface. No hepatic lesions identified on this unenhanced exam. A 1.4 cm intermediate attenuation left adrenal nodule is indeterminate although statistically benign. This is unchanged since CT of November 07, 2017. Unenhanced images of the spleen, right adrenal gland and pancreas are unremarkable. Probable gallbladder wall thickening is noted. The gallbladder is nondistended. There is no hydronephrosis. Anasarca is noted. Images of the pelvis are degraded by streak artifact from left hip arthroplasty. Old left inferior and superior pubic rami fractures are noted. The appendix is not visualized. There is no right lower quadrant inflammation. There is no abscess or ascites within the abdomen or the pelvis. IMPRESSION: 1. Probable gallbladder wall thickening. No gallbladder distention. Gallbladder wall thickening is a nonspecific finding, particularly given evidence for volume overload. A hepatobiliary scan could be obtained if suspicion for cholecystitis. 2. No bowel obstruction. 3. Small to moderate right and small left pleural effusions, partially imaged on this exam. Associated opacities favor atelectasis. Electronically signed by: Fly Hernandez M.D. 03/12/2018 5:20 PM Dictated Date/Time: 03/12/2018 5:10 PM
[2018-03-12] MEDS ORDERED: FUROSEMIDE 40 MG/4 ML VIAL IV STA (17:32)
[2018-03-12] MEDS ORDERED: ICU PROTOCOL FOR HYPERGLYCEMIA PRN (17:45)
--- NOTE | 2018-03-12 17:45 | History and Physical ---
History & Physical Date & Time of Service: Mar 12, 2018 at 17:25 Chief Complaint: Ams/Lethargic/Decreased Spo2 Primary Care Physician: Federico [place] History of Present Illness Source: other (ER physician) She is an 87-year-old female with them significant past medical history including COPD, CHF, atrial fibrillation, hypothyroidism, ambulatory dysfunction and dementia apparently was sent in from [facility] this afternoon with change in mental status. History was obtained from ER physicians and also from the chart. She was noted to be hypoxic on arrival and her condition deteriorated with unresponsiveness and very high CO2 on Blood gas that she required intubation. She was admitted to ICU for continued care. She was recently discharged from the hospital on 25 of February following a prolonged hospital stay for acute on chronic respiratory failure likely secondary to pneumonia and metabolic encephalopathy with the other comorbid conditions as mentioned below. She had a prolonged hospital stay for social reason and as per the court ordered she was sent to [facility] for continued care. Past Medical/Surgical History Medical Problems: (1) Altered mental status (2) Atrial fibrillation (3) Atrial fibrillation (4) Carotid artery disease (5) Cerebrovascular disease (6) Change in mental status (7) CO2 retention (8) COPD (chronic obstructive pulmonary disease) (9) Dementia (10) Diastolic CHF (11) Exacerbation of asthma (12) Hypertension (13) Hypothyroidism (14) Knee Joint Replacement Status (15) Respiratory distress (16) Symptomatic bradycardia (17) Urinary incontinence (18) UTI (urinary tract infection) Surgical Problems: (1) S/P placement of cardiac pacemaker Family History Cancer Diabetes mellitus Heart disease Social History Smoking Status: Unknown if Ever Smoked Smokeless Tobacco Use: No Alcohol Use: none Drug Use: none Marital Status: Allergies Coded Allergies: Penicillins (Verified Allergy, Unknown, RXN TO AMOXICILLIN, 12/15/17) Adhesives (Verified Adverse Reaction, Mild, RXN TO TAPE, 12/15/17) Home Medications Scheduled Aspirin (Aspirin Ec), 81 MG PO DAILY Atorvastatin (Lipitor), 40 MG PO DAILY Bacitracin (Bacitracin Zinc), 1 APPLN EXT BID Diltiazem Hcl Ext Rel (Tiazac), 120 MG PO DAILY Furosemide (Furosemide), 40 MG PO DAILY Latanoprost (Latanoprost), 1 DROP OPB HS Levothyroxine Sodium (Levothyroxine Sodium), 1 TAB PO DAILY Metoprolol Succ (Toprol Xl) (Toprol-Xl), 50 MG PO DAILY Oxybutynin Chloride (Oxybutynin Chloride Er), 5 MG PO DAILY Potassium Ext Rel (Klor-Con), 20 MEQ PO DAILY Scheduled PRN Acetaminophen Tab (Tylenol), 650 MG PO Q6H PRN for Pain or Fever Bisacodyl (Dulcolax), 1 SUPP NM PRN UD PRN for Constipation Ipratropium [place] (Ipratropium [place]), 0.5 MG INH Q4H PRN for Shortness of Breath Levalbuterol (Levalbuterol HCl), 0.63 MG INH Q4H PRN for Shortness of Breath Magnesium Hydroxide (Milk Of Magnesia), 30 ML PO PRN UD PRN for constipation Sodium Phosphates (Fleet Enema Six Pack), 1 DOSE RE PRN UD PRN for Constipation Review of Systems Not possible as the patient is intubated and on Mechanical Vent Physical Exam Vital Signs Date Time Temp Pulse Resp B/P (MAP) Pulse Ox O2 Delivery O2 Flow Rate FiO2 03/12/18 17:12 151/92 03/12/18 17:10 69 13 98 Mechanical Ventilator 03/12/18 16:46 107/50 03/12/18 16:40 66 12 100 Mechanical Ventilator 03/12/18 16:39 100 03/12/18 16:38 100 03/12/18 16:35 63 12 100 03/12/18 16:32 94/65 03/12/18 16:25 81 17 100 03/12/18 16:23 141/78 03/12/18 16:15 36.7 104 28 120/ 100 Non-Rebreather 03/12/18 16:15 63 23 100 03/12/18 16:15 100 Non-Rebreather 03/12/18 16:05 63 20 100 03/12/18 16:01 68 03/12/18 15:55 68 20 100 03/12/18 15:45 65 21 100 03/12/18 15:35 70 21 03/12/18 15:28 130/114 General Appearance: + pertinent finding (unresponsive and Intubated) Head: normocephalic Eyes: normal inspection (Closed) ENT: normal ENT inspection Neck: supple Respiratory/Chest: + decreased breath sounds, + wheezing Cardiovascular: regular rate, rhythm Abdomen/GI: normal bowel sounds Extremities/Musculoskelatal: + pedal edema Neurologic/Psych: + pertinent finding (Unresponsive and Intubated) Skin: + cyanosis, + mottled Lymphatic: no adenopathy Diagnostics Laboratory Results Results Past 24 Hours Test 03/12/18 15:29 03/12/18 15:42 03/12/18 16:05 03/12/18 16:09 Range/Units Venous Blood pH 7.21 7.36-7.41 Venous Blood Partial Pressure CO2 105 38.0-50.0 mmHg Venous Blood Partial Pressure O2 38 mmHg Venous Blood HCO3 42 mmol/L Venous Blood Oxygen Saturation 61.0 % Venous Blood Base Excess 9.8 mEq/L Bedside Hemoglobin 13.3 12.0-16.0 g/dl Bedside Hematocrit 39 37-47 % Bedside Sodium 132 135-144 mEq/L Bedside Potassium 5.6 3.3-5.0 mEq/L Bedside Chloride 84 101-112 mEq/L Bedside Total CO2 > 40 24-31 mEq/l Anion Gap 14.0 16-25 mmol/L Bedside Blood Urea Nitrogen 25 7-18 mg/dl Bedside Creatinine 1.1 0.6-1.3 mg/dl Bedside Glucose (other) 117 70-99 mg/dl Bedside Ionized Calcium (Janay) 1.22 1.12-1.32 mmol/l Test 03/12/18 16:12 03/12/18 16:13 03/12/18 16:42 Range/Units White Blood Count 7.43 4.8-10.8 K/uL Red Blood Count 3.97 4.2-5.4 M/uL Hemoglobin 12.1 12.0-16.0 g/dL Hematocrit 38.3 37-47 % Mean Corpuscular Volume 96.5 80-100 fL Mean Corpuscular Hemoglobin 30.5 25-34 pg Mean Corpuscular Hemoglobin Concent 31.6 32-36 g/dl Platelet Count 236 130-400 K/uL Mean Platelet Volume 9.2 7.4-10.4 fL Neutrophils (%) (Auto) 74.1 % Lymphocytes (%) (Auto) 12.2 % Monocytes (%) (Auto) 12.0 % Eosinophils (%) (Auto) 1.2 % Basophils (%) (Auto) 0.4 % Neutrophils # (Auto) 5.50 1.4-6.5 K/uL Lymphocytes # (Auto) 0.91 1.2-3.4 K/uL Monocytes # (Auto) 0.89 0.11-0.59 K/uL Eosinophils # (Auto) 0.09 0-0.5 K/uL Basophils # (Auto) 0.03 0-0.2 K/uL RDW Standard Deviation 54.7 36.4-46.3 fL RDW Coefficient of Variation 15.6 11.5-14.5 % Immature Granulocyte % (Auto) 0.1 % Immature Granulocyte # (Auto) 0.01 0.00-0.02 K/uL Prothrombin Time 10.9 9.0-12.0 SECONDS Prothromb Time International Ratio 1.0 0.9-1.1 Sodium Level 129 136-145 mmol/L Potassium Level 4.7 3.5-5.1 mmol/L Chloride Level 90 98-107 mmol/L Carbon Dioxide Level 34 21-32 mmol/L Anion Gap 5.0 3-11 mmol/L Blood Urea Nitrogen 18 7-18 mg/dl Creatinine 1.06 0.60-1.20 mg/dl Est Creatinine Clear Calc Drug Dose 44.7 ml/min Estimated GFR () 55.4 Estimated GFR (Non- 47.8 BUN/Creatinine Ratio 17.3 10-20 Random Glucose 109 70-99 mg/dl Calcium Level 9.3 8.5-10.1 mg/dl Magnesium Level 2.2 1.8-2.4 mg/dl Total Bilirubin 0.7 0.2-1 mg/dl Direct Bilirubin 0.2 0-0.2 mg/dl Aspartate Amino Transf (AST/SGOT) 22 15-37 U/L Alanine Aminotransferase (ALT/SGPT) 20 12-78 U/L Alkaline Phosphatase 86 45-117 U/L Total Creatine Kinase 51 26-192 U/L Creatine Kinase MB 1.6 0.5-3.6 ng/ml Creatine Kinase MB Ratio 3.1 0-3.0 Troponin I < 0.015 0-0.045 ng/ml Total Protein 7.6 6.4-8.2 gm/dl Albumin 3.3 3.4-5.0 gm/dl Bedside Lactic Acid Venous 1.18 0.90-1.70 mmol/L Bedside Hemoglobin 11.9 12.0-16.0 g/dl Bedside Hematocrit 35 37-47 % Bedside Blood Gas pH (LAB) 7.32 7.35-7.45 Bedside Blood Gas pCO2 (LAB) 80 35-46 mmHg Bedside Blood Gas pO2 (LAB) 360 80-95 mmHg Bedside Blood Gas HCO3 (LAB) 41 19-24 meq/L Bedside Blood Gas Total CO2 > 40 24-31 mEq/l Bedside Blood Gas Base Excess (LAB) 15.0 -9-1.8 meq/L Bedside Blood Gas O2 Saturation 100.0 90-95 % Bedside Sodium 128 135-144 mEq/L Bedside Potassium 5.1 3.3-5.0 mEq/L Microbiology Results 03/12/18 Blood Culture, Received Pending 03/12/18 Blood Culture, Received Pending Impression Assessment and Plan Acute on chronic hypoxic and hypercarbic respiratory failure Brought in with change in mental status and the condition rapidly deteriorated that required intubation She will be admitted to ICU [employer] consulted for management Acute on chronic diastolic heart failure She has edema, chest x-ray suggestive of congestion Will give Lasix 40 mg IV We will get serial cardiac enzymes to rule out any ACS Check ECHO Metabolic encephalopathy Likely secondary to urinary and/or respiratory infection We will start doxycycline IV for probable bronchitis/pneumonia Await UA examination and culture Atrial fibrillation Rate is controlled We will continue intravenous beta-mar for now Cardizem is on hold Will not restart Anticoagulation-Fall risk COPD exacerbation Likely the cause for respiratory failure We will start intravenous doxycycline Nebulized bronchodilator and Solu-Medrol IV Hypothyroidism Continue IV Synthroid 50 mcg daily Dementia No acute delirium noted before intubation Ambulatory dysfunction We will get PT evaluation on improvement GI prophylaxis IV Protonix DVT prophylaxis Subcu heparin CODE STATUS: Full code for now The [employer] A[employer] did discuss the case with POA. He may clinical assessment the beneficially meets criteria as per CMS for 2 midnight stay in the hospital Resuscitation Status VTE Prophylaxis Will order VTE Prophylaxis: Yes Note Total Time: Critical Care 30 - 74 minutes
[2018-03-12] MEDS ORDERED: LEVO100T7 PO (17:46)
--- NOTE | 2018-03-12 18:16 | EMERGENCY ROOM VISIT NOTE ---
History Report prepared by Maydaibe: Yen Gayle Under the Supervision of: Dr. Aureliano Cifuentes D.O. First contact with patient: 15:16 Stated Complaint: AMS/LETHARGIC/DECREASED SPO2 History of Present Illness The patient is a 87 year old female who presents to the Emergency Room with complaints of altered mental status. She was brought to the ED via EMS from [facility], where she resides. EMS states they were told the patient has been lethargic and short of breath "all day". She was placed on a non-air breather in the field after her O2 dropped to 83%. She complains of increased pain "all over". She denies any headache or chest pain. EMS notes they were told the patient recently had pneumonia. The patient is a full code. 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 A total of 10 systems reviewed and were otherwise negative. Past Medical & Surgical Medical Problems: (1) Acute chronic obstructive pulmonary disease with respiratory failure (2) Acute on chronic diastolic (congestive) heart failure (3) Atrial fibrillation (4) Carotid artery disease (5) Cerebrovascular disease (6) COPD (chronic obstructive pulmonary disease) (7) Dementia (8) Diastolic CHF (9) Hypertension (10) Hypothyroidism (11) Knee Joint Replacement Status (12) Symptomatic bradycardia (13) Urinary incontinence Surgical Problems: (1) S/P placement of cardiac pacemaker Family History Cancer Diabetes mellitus Heart disease Social History Smoking Status: Never Smoker Drug Use: none Marital Status: Housing Status: senior living Occupation Status: retired Current/Historical Medications Scheduled Aspirin (Aspirin Ec), 81 MG PO DAILY Atorvastatin (Lipitor), 40 MG PO DAILY Bacitracin (Bacitracin Zinc), 1 APPLN EXT BID Diltiazem Hcl Ext Rel (Tiazac), 120 MG PO DAILY Furosemide (Furosemide), 40 MG PO DAILY Latanoprost (Latanoprost), 1 DROP OPB HS Levothyroxine Sodium (Levothyroxine Sodium), 1 TAB PO DAILY Metoprolol Succ (Toprol Xl) (Toprol-Xl), 50 MG PO DAILY Oxybutynin Chloride (Oxybutynin Chloride Er), 5 MG PO DAILY Potassium Ext Rel (Klor-Con), 20 MEQ PO DAILY Scheduled PRN Acetaminophen Tab (Tylenol), 650 MG PO Q6H PRN for Pain or Fever Bisacodyl (Dulcolax), 1 SUPP WV PRN UD PRN for Constipation Ipratropium [place] (Ipratropium [place]), 0.5 MG INH Q4H PRN for Shortness of Breath Levalbuterol (Levalbuterol HCl), 0.63 MG INH Q4H PRN for Shortness of Breath Magnesium Hydroxide (Milk Of Magnesia), 30 ML PO PRN UD PRN for constipation Sodium Phosphates (Fleet Enema Six Pack), 1 DOSE RE PRN UD PRN for Constipation Allergies Coded Allergies: Penicillins (Verified Allergy, Unknown, RXN TO AMOXICILLIN, 12/15/17) Adhesives (Verified Adverse Reaction, Mild, RXN TO TAPE, 12/15/17) Physical Exam Vital Signs Date Time Temp Pulse Resp B/P (MAP) Pulse Ox O2 Delivery O2 Flow Rate FiO2 03/12/18 17:47 61 16 100 Mechanical Ventilator 03/12/18 17:32 64 16 142/85 98 Mechanical Ventilator 03/12/18 17:28 96/61 03/12/18 17:17 64 12 96/61 96 Mechanical Ventilator 03/12/18 17:12 151/92 03/12/18 17:10 69 13 98 Mechanical Ventilator 03/12/18 16:46 107/50 03/12/18 16:40 66 12 100 Mechanical Ventilator 03/12/18 16:39 100 03/12/18 16:38 100 03/12/18 16:35 63 12 100 03/12/18 16:32 94/65 03/12/18 16:25 81 17 100 03/12/18 16:23 141/78 03/12/18 16:15 36.7 104 28 120/ 100 Non-Rebreather 03/12/18 16:15 63 23 100 03/12/18 16:15 100 Non-Rebreather 03/12/18 16:05 63 20 100 03/12/18 16:01 68 03/12/18 15:55 68 20 100 03/12/18 15:45 65 21 100 03/12/18 15:35 70 21 03/12/18 15:28 130/114 Physical Exam GENERAL: Laying in bed, ill-appearing, in moderate distress EYE EXAM: normal conjunctiva. OROPHARYNX: no exudate, no erythema, lips, buccal mucosa, and tongue normal and mucous membranes are dry NECK: supple, no nuchal rigidity, no adenopathy, non-tender LUNGS: Minimal air movement bilaterally. Normal chest wall mechanics HEART: tachy, S1 normal and S2 normal ABDOMEN: abdomen soft, non-tender, normo-active bowel sounds, no masses, no rebound or guarding. BACK: Back is symmetrical on inspection and there is no deformity, no midline tenderness, no CVA tenderness. SKIN: no rashes and no bruising UPPER EXTREMITIES: upper extremities are grossly normal. LOWER EXTREMITIES: Diffuse pitting edema up to abdomen and back. NEURO EXAM: Patient is awake, able to state location, falls asleep quickly and moaning, non-focal Medical Decision & Procedures ER Provider Diagnostic Interpretation: Radiology results as stated below per my review and the radiologist's interpretation: CHEST ONE VIEW PORTABLE CLINICAL HISTORY: fever dyspnea COMPARISON STUDY: 02/03/2018 FINDINGS: Moderate stable cardiomegaly. Permanent bipolar cardiac pacemaker. Interval bibasilar parenchymal infiltrative change versus components of congestive failure. IMPRESSION: Bibasilar infiltrates versus congestive failure The above report was generated using voice recognition software. It may contain grammatical, syntax or spelling errors. Electronically signed by: Jason Last M.D. 03/12/2018 3:49 PM CHEST ONE VIEW PORTABLE CLINICAL HISTORY: fever dyspnea COMPARISON STUDY: 02/03/2018 FINDINGS: Moderate stable cardiomegaly. Permanent bipolar cardiac pacemaker. Interval bibasilar parenchymal infiltrative change versus components of congestive failure. IMPRESSION: Bibasilar infiltrates versus congestive failure The above report was generated using voice recognition software. It may contain grammatical, syntax or spelling errors. Electronically signed by: Jason Last M.D. 03/12/2018 3:[address] SCAN OF THE BRAIN WITHOUT IV CONTRAST CLINICAL HISTORY: Change in mental status. COMPARISON STUDY: CT of the brain dated 11/25/2016. TECHNIQUE: Unenhanced axial CT scan of the brain is performed from the vertex to the skull base. A dose lowering technique was utilized adhering to the principles of ALARA. The patient was scanned twice due to motion artifact. The examination is compromised by motion. CT DOSE: 1848.54 mGy.cm FINDINGS: Brain parenchyma: There are age-related involutional changes noting advanced confluent subcortical and periventricular microangiopathic change. Chronic lacunar infarcts identified in the left caudate head and the left basal ganglia. There is no hemorrhage, mass effect, or evidence of acute territorial ischemia by CT criteria. Kemp-white matter is preserved. No extra-axial fluid collection is seen. Ventricles, sulci, cisterns: Prominent secondary to involutional change. Intracranial vasculature: There is atherosclerotic calcification of the cavernous carotid and vertebral arteries. Calvarium: Unremarkable. Soft tissues: Frontal scalp contusion is suggested. Sinuses and mastoids: The there is subtotal opacification of the left maxillary antrum. Additional calcifications are noted. Thickening and sclerosis of the sinus wall indicates chronicity. Mild mucosal thickening is seen within the ethmoid sinuses. Soft tissue material is also seen within the nasal cavity. The mastoid air cells are well pneumatized. Orbits: The bony orbits are grossly intact. IMPRESSION: 1. Senescent changes as above. There is no hemorrhage, mass effect, or evidence of acute territorial ischemia by CT criteria noting a motion compromised examination. 2. Paranasal sinus disease as above. Electronically signed by: Nicolás Ochoa M.D. 03/12/2018 5:[address] OF THE ABDOMEN AND PELVIS WITHOUT CONTRAST CLINICAL HISTORY: Sepsis. COMPARISON STUDY: Renal ultrasound November 26, 2016. TECHNIQUE: Axial images of the abdomen and pelvis were obtained without IV contrast. Images were reviewed in the axial, sagittal, and coronal planes. A dose lowering technique was utilized adhering to the principles of ALARA. FINDINGS: Heart is moderately enlarged. Pacer leads are partially imaged. Old bilateral rib fractures are noted. There is no pericardial effusion. Small to moderate right and small left pleural effusions are partially imaged. Associated opacities favor atelectasis. Evaluation of the abdomen and pelvis is suboptimal on this unenhanced exam. No pneumatosis, free air or portal venous gas is present. There is no evidence for a bowel obstruction. There is slight nodularity of the liver surface. No hepatic lesions identified on this unenhanced exam. A 1.4 cm intermediate attenuation left adrenal nodule is indeterminate although statistically benign. This is unchanged since CT of November 07, 2017. Unenhanced images of the spleen, right adrenal gland and pancreas are unremarkable. Probable gallbladder wall thickening is noted. The gallbladder is nondistended. There is no hydronephrosis. Anasarca is noted. Images of the pelvis are degraded by streak artifact from left hip arthroplasty. Old left inferior and superior pubic rami fractures are noted. The appendix is not visualized. There is no right lower quadrant inflammation. There is no abscess or ascites within the abdomen or the pelvis. IMPRESSION: 1. Probable gallbladder wall thickening. No gallbladder distention. Gallbladder wall thickening is a nonspecific finding, particularly given evidence for volume overload. A hepatobiliary scan could be obtained if suspicion for cholecystitis. 2. No bowel obstruction. 3. Small to moderate right and small left pleural effusions, partially imaged on this exam. Associated opacities favor atelectasis. Electronically signed by: Fly Hernandez M.D. 03/12/2018 5:20 PM Laboratory Results 03/12/18 16:12 Red Blood Count 3.97, Mean Corpuscular Volume 96.5, Mean Corpuscular Hemoglobin 30.5, Mean Corpuscular Hemoglobin Concent 31.6, Mean Platelet Volume 9.2, Neutrophils (%) (Auto) 74.1, Lymphocytes (%) (Auto) 12.2, Monocytes (%) (Auto) 12.0, Eosinophils (%) (Auto) 1.2, Basophils (%) (Auto) 0.4, Neutrophils # (Auto ) 5.50, Lymphocytes # (Auto) 0.91, Monocytes # (Auto) 0.89, Eosinophils # (Auto ) 0.09, Basophils # (Auto) 0.03 03/12/18 16:12 Test 03/12/18 16:05 03/12/18 16:09 03/12/18 16:12 03/12/18 16:13 Venous Blood pH 7.21 (7.36-7.41) Venous Blood Partial Pressure CO2 105 mmHg (38.0-50.0) Venous Blood Partial Pressure O2 38 mmHg Venous Blood HCO3 42 mmol/L Venous Blood Oxygen Saturation 61.0 % Venous Blood Base Excess 9.8 mEq/L Bedside Chloride 84 mEq/L (101-112) Bedside Total CO2 > 40 mEq/l (24-31) Bedside Blood Urea Nitrogen 25 mg/dl (7-18) Bedside Creatinine 1.1 mg/dl (0.6-1.3) Bedside Glucose (other) 117 mg/dl (70-99) Bedside Ionized Calcium (Janay) 1.22 mmol/l (1.12-1.32) White Blood Count 7.43 K/uL (4.8-10.8) Red Blood Count 3.97 M/uL (4.2-5.4) Hemoglobin 12.1 g/dL (12.0-16.0) Hematocrit 38.3 % (37-47) Mean Corpuscular Volume 96.5 fL (80-100) Mean Corpuscular Hemoglobin 30.5 pg (25-34) Mean Corpuscular Hemoglobin Concent 31.6 g/dl (32-36) Platelet Count 236 K/uL (130-400) Mean Platelet Volume 9.2 fL (7.4-10.4) Neutrophils (%) (Auto) 74.1 % Lymphocytes (%) (Auto) 12.2 % Monocytes (%) (Auto) 12.0 % Eosinophils (%) (Auto) 1.2 % Basophils (%) (Auto) 0.4 % Neutrophils # (Auto) 5.50 K/uL (1.4-6.5) Lymphocytes # (Auto) 0.91 K/uL (1.2-3.4) Monocytes # (Auto) 0.89 K/uL (0.11-0.59) Eosinophils # (Auto) 0.09 K/uL (0-0.5) Basophils # (Auto) 0.03 K/uL (0-0.2) RDW Standard Deviation 54.7 fL (36.4-46.3) RDW Coefficient of Variation 15.6 % (11.5-14.5) Immature Granulocyte % (Auto) 0.1 % Immature Granulocyte # (Auto) 0.01 K/uL (0.00-0.02) Prothrombin Time 10.9 SECONDS (9.0-12.0) Prothromb Time International Ratio 1.0 (0.9-1.1) Anion Gap 5.0 mmol/L (3-11) Est Creatinine Clear Calc Drug Dose 44.7 ml/min Estimated GFR () 55.4 Estimated GFR (Non- 47.8 BUN/Creatinine Ratio 17.3 (10-20) Calcium Level 9.3 mg/dl (8.5-10.1) Magnesium Level 2.2 mg/dl (1.8-2.4) Total Bilirubin 0.7 mg/dl (0.2-1) Direct Bilirubin 0.2 mg/dl (0-0.2) Aspartate Amino Transf (AST/SGOT) 22 U/L (15-37) Alanine Aminotransferase (ALT/SGPT) 20 U/L (12-78) Alkaline Phosphatase 86 U/L (45-117) Total Creatine Kinase 51 U/L (26-192) Creatine Kinase MB 1.6 ng/ml (0.5-3.6) Creatine Kinase MB Ratio 3.1 (0-3.0) Troponin I < 0.015 ng/ml (0-0.045) Pro-B-Type Natriuretic Peptide 4710 pg/ml (0-1800) Total Protein 7.6 gm/dl (6.4-8.2) Albumin 3.3 gm/dl (3.4-5.0) Bedside Lactic Acid Venous 1.18 mmol/L (0.90-1.70) Test 03/12/18 16:42 03/12/18 17:18 03/12/18 17:44 Bedside Hemoglobin 11.9 g/dl (12.0-16.0) Bedside Hematocrit 35 % (37-47) Bedside Blood Gas pH (LAB) 7.32 (7.35-7.45) Bedside Blood Gas pCO2 (LAB) 80 mmHg (35-46) Bedside Blood Gas pO2 (LAB) 360 mmHg (80-95) Bedside Blood Gas HCO3 (LAB) 41 meq/L (19-24) Bedside Blood Gas Total CO2 > 40 mEq/l (24-31) Bedside Blood Gas Base Excess (LAB) 15.0 meq/L (-9-1.8) Bedside Blood Gas O2 Saturation 100.0 % (90-95) Bedside Sodium 128 mEq/L (135-144) Bedside Potassium 5.1 mEq/L (3.3-5.0) Bedside Venous pH 7.25 (7.36-7.41) Bedside Venous pCO2 91 mmHg (38.0-50.0) Bedside Venous pO2 40 mmHg (30-55) Bedside Venous HCO3 40 meq/L (23-28) Bedside Venous Blood Total CO2 > 40 mEq/l (24-31) Bedside Venous Blood O2 Saturation 62.0 % (70-80) Bedside Venous Blood Base Excess 12.0 meq/L Laboratory results per my review. Medications Administered Medications (Trade) Dose Ordered Sig/Mak Route Start Time Stop Time Status Last Admin Dose Admin Cefepime HCl 1000 mg/Dextrose 111 ml @ 200 mls/hr NOW STAT IV 03/12/18 16:05 03/12/18 16:38 DC 03/12/18 16:05 200 MLS/HR Propofol (Diprivan Iv Emulsion 100ml Vial) 1 dose UD STAT IV 03/12/18 16:32 03/12/18 16:34 DC 03/12/18 16:48 1 DOSE Furosemide (Lasix Inj) 40 mg NOW STAT IV 03/12/18 17:32 03/12/18 17:33 DC 03/12/18 17:32 40 MG Procedure Endotracheal Intubation Indication: Respiratory Failure The patient was on 100% oxygen via NRB prior to the procedure. Suction, airway equipment, RSI drugs, respiratory equipment, and appropriate personnel were prepared prior to the initiation of the procedure. A time out was taken. Induction was performed with Ketamine. After observing the clinical benefit of the medications, the airway was easily visualized utilizing a glide scope. A 3 size ETT tube was placed atraumatically to 23 cm using standard technique. The cuff inflated without signs of malfunction. There were bilateral breath sounds, positive colormetric change, no gastric sounds, a good capnography waveform, and post procedure pulse oximetry was 100%. Post intubation sedation and paralysis was administered using Succinylcholine. There were no complications. ECG Per My Interpretation Indication: altered mental status Rate (beats per minute): 70 Rhythm: other (paced rhythm) Findings: Q waves (Septal), left axis deviation ED Course ED COURSE: Vital signs were reviewed and showed the patient is hypoxic The patients medical record was reviewed The above diagnostic studies were performed and reviewed. ED treatments and interventions as stated above. 1519: The patient was evaluated in room C3. A complete history and physical examination was performed. 1605: Cefepime HCl 1000 mg/Dextrose 111 ml @ 200 mls/hr IV. 1632: Propofol 100 ml IV. 1655: Upon reevaluation, the patient is still doing well and is intubated. She is on her way to CT scan. 1700: I discussed the patients case with KENTON Torres, [facility]ist. The patient will be further evaluated. 1703: I discussed the patients case with Dr. ShipKareem [facility] ICU. The patient will be further evaluated. Based on the patients age, coexisting illnesses, exam and lab findings the decision to treat as an inpatient was made. The patient remained stable while under my care. The patient will be evaluated for further management. Medical Decision Differential diagnoses includes but is not limited to pneumonia, bronchitis, COPD/Asthma exacerbation, pneumothorax, pulmonary embolism, congestive heart failure, acute coronary syndrome. Patient is an 87-year-old female who presents the ER from heart side for altered mental status and shortness of breath. Patient was found to be hypoxic and transferred here. She is confused all day. CBC along with BMP shows hyperkalemia at 5.6. Normal kidney function 1.1. CO2 was elevated greater than 40. Patient was on a nonrebreather. She was initially slightly interactive but this deteriorated. PH was 7.21. CO2 was 105. Patient was intubated due to respiratory failure. Chest x-ray shows pulmonary edema and bilateral pleural effusions with questionable infiltrates. CT of the head was unremarkable. CT of the belly shows no acute pathology. Patient was sedated with propofol. De Oliveira was placed. Patient was given IV Lasix. Casting Machine Set Up Operator was consulted. Hospitalist was consulted as well. Patient remained stable while in the ER and was admitted for hypoxic and hypercarbic respiratory failure. Repeat ABGs were obtained and CO2 was trending down. Medication Reconcilliation Current Medication List: was personally reviewed by me Blood Pressure Screening Patient's blood pressure: Low blood pressure Consults Time Called: 1655 Consulting Physician: KENTON Torres [facility] Returned Call: 1700 I [facility] The patient will be further evaluated. Additional Consults: Time Called: 1700 Consulted Physician: Dr. Oden, Kareem [place] Returned Call: 1703 Additional Comments: I discussed the patients case with Kareem Zepeda [facility]. The patient will be further evaluated. Impression Primary Impression: Acute chronic obstructive pulmonary disease with respiratory failure Additional Impressions: Altered mental status Encephalopathy Acute on chronic diastolic (congestive) heart failure Critical Care I have personally spent 35 minutes of critical care time in the direct management of this patient. This includes bedside care, interpretation of diagnostic studies, and testing, discussion with consultants, patient, and family members, and other required patient management activities. This 35 minutes is in excess of all separately billable procedures. Scribe Attestation The scribe's documentation has been prepared under my direction and personally reviewed by me in its entirety. I confirm that the note above accurately reflects all work, treatment, procedures, and medical decision making performed by me. Departure Information Dispostion Being Evaluated By Hospitalist Referrals Federico [place] (PCP) Problem Qualifiers Additional Impressions: Altered mental status Altered mental status type: unspecified Qualified Codes: R41.82 - Altered mental status, unspecified
--- NOTE | 2018-03-12 18:49 | Critical Care Consultation ---
Critical Care Consultation Date of Consultation: Mar 12, 2018. Attending Physician: Saud Reason for Consultation: Hypoxic hypercarbic respiratory failure History of Present Illness Patient is a 87-year-old female who presents from the [facility] for altered mental status. She was found to have hypoxic and hypercarbic respiratory failure. She was successfully intubated in the emergency department. She has a previous past medical history for colon Asthma Carotid artery disease Prior CVA Reported dementia Hypertension Hypothyroidism Goiter Status post pacemaker Atrial fibrillation COPD History of E. coli urinary tract infections as well as bacteremia Status post knee replacement Left bundle branch block on EKG Not anticoagulated secondary to fall risk per prior records History of inspiratory stridor: Seen by ENT on October 2017 admission however refused laryngoscopy In review of prior records I previously saw the patient in October and during that admission the patient was able to be successfully liberated from the ventilator, it was determined that she was alert oriented and understood the gravity of her decisions and to what the difference was between cardiac arrest and respiratory insufficiency. She did not want heroic measures in event of cardiac arrest however she was agreeable with temporary short-term mechanical ventilation. In the interim the patient was readmitted to the hospital and during that admission there was significant decline in her mental status with the likely etiology being vascular dementia. A court order was obtained for medical surrogacy, this was apparently granted. I was able to contact the temporary court appointed surrogate Mago: . At this point we will proceed with a ethics consultation to compile data and facilitate family and healthcare surrogate discussions. There appears to be limitations regarding the temporary versus permanent court appointed surrogate with regards to end-of-life medical decisions. I believe the patient was clear in her desire to not undergo heroic measures in event of cardiac arrest during her admission in October; however, there have been other developments in the interlude which have impacted the patient's ability to consent for herself. Past Medical/Surgical History As noted above Family History Cancer Diabetes mellitus Heart disease Social History Smoking Status: Unknown if Ever Smoked Marital Status: Housing Status: lives with family Allergies Coded Allergies: Penicillins (Verified Allergy, Unknown, RXN TO AMOXICILLIN, 12/15/17) Adhesives (Verified Adverse Reaction, Mild, RXN TO TAPE, 12/15/17) Home Medications Scheduled Aspirin (Aspirin Ec), 81 MG PO DAILY Atorvastatin (Lipitor), 40 MG PO DAILY Bacitracin (Bacitracin Zinc), 1 APPLN EXT BID Diltiazem Hcl Ext Rel (Tiazac), 120 MG PO DAILY Furosemide (Furosemide), 40 MG PO DAILY Latanoprost (Latanoprost), 1 DROP OPB HS Levothyroxine Sodium (Levothyroxine Sodium), 1 TAB PO DAILY Metoprolol Succ (Toprol Xl) (Toprol-Xl), 50 MG PO DAILY Oxybutynin Chloride (Oxybutynin Chloride Er), 5 MG PO DAILY Potassium Ext Rel (Klor-Con), 20 MEQ PO DAILY Scheduled PRN Acetaminophen Tab (Tylenol), 650 MG PO Q6H PRN for Pain or Fever Bisacodyl (Dulcolax), 1 SUPP [place] PRN UD PRN for Constipation Ipratropium [place] (Ipratropium [place]), 0.5 MG INH Q4H PRN for Shortness of Breath Levalbuterol (Levalbuterol HCl), 0.63 MG INH Q4H PRN for Shortness of Breath Magnesium Hydroxide (Milk Of Magnesia), 30 ML PO PRN UD PRN for constipation Sodium Phosphates (Fleet Enema Six Pack), 1 DOSE RE PRN UD PRN for Constipation Review of Systems Unable to obtain secondary to intubation Physical Exam Date Time Temp Pulse Resp B/P (MAP) Pulse Ox O2 Delivery O2 Flow Rate FiO2 03/12/18 17:12 151/92 03/12/18 17:10 69 13 98 Mechanical Ventilator 03/12/18 16:46 107/50 03/12/18 16:40 66 12 100 Mechanical Ventilator 03/12/18 16:39 100 03/12/18 16:38 100 03/12/18 16:35 63 12 100 03/12/18 16:32 94/65 03/12/18 16:25 81 17 100 03/12/18 16:23 141/78 03/12/18 16:15 36.7 104 28 120/ 100 Non-Rebreather 03/12/18 16:15 63 23 100 03/12/18 16:15 100 Non-Rebreather 03/12/18 16:05 63 20 100 03/12/18 16:01 68 03/12/18 15:55 68 20 100 03/12/18 15:45 65 21 100 03/12/18 15:35 70 21 03/12/18 15:28 130/114 Laboratory Results Last 24 Hours Test 03/12/18 15:29 03/12/18 15:42 03/12/18 16:05 03/12/18 16:09 Venous Blood pH 7.21 Venous Blood Partial Pressure CO2 105 mmHg Venous Blood Partial Pressure O2 38 mmHg Venous Blood HCO3 42 mmol/L Venous Blood Oxygen Saturation 61.0 % Venous Blood Base Excess 9.8 mEq/L Bedside Hemoglobin 13.3 g/dl Bedside Hematocrit 39 % Bedside Sodium 132 mEq/L Bedside Potassium 5.6 mEq/L Bedside Chloride 84 mEq/L Bedside Total CO2 > 40 mEq/l Anion Gap 14.0 mmol/L Bedside Blood Urea Nitrogen 25 mg/dl Bedside Creatinine 1.1 mg/dl Bedside Glucose (other) 117 mg/dl Bedside Ionized Calcium (Janay) 1.22 mmol/l Test 03/12/18 16:12 03/12/18 16:13 03/12/18 16:42 03/12/18 17:18 White Blood Count 7.43 K/uL Red Blood Count 3.97 M/uL Hemoglobin 12.1 g/dL Hematocrit 38.3 % Mean Corpuscular Volume 96.5 fL Mean Corpuscular Hemoglobin 30.5 pg Mean Corpuscular Hemoglobin Concent 31.6 g/dl Platelet Count 236 K/uL Mean Platelet Volume 9.2 fL Neutrophils (%) (Auto) 74.1 % Lymphocytes (%) (Auto) 12.2 % Monocytes (%) (Auto) 12.0 % Eosinophils (%) (Auto) 1.2 % Basophils (%) (Auto) 0.4 % Neutrophils # (Auto) 5.50 K/uL Lymphocytes # (Auto) 0.91 K/uL Monocytes # (Auto) 0.89 K/uL Eosinophils # (Auto) 0.09 K/uL Basophils # (Auto) 0.03 K/uL RDW Standard Deviation 54.7 fL RDW Coefficient of Variation 15.6 % Immature Granulocyte % (Auto) 0.1 % Immature Granulocyte # (Auto) 0.01 K/uL Prothrombin Time 10.9 SECONDS Prothromb Time International Ratio 1.0 Sodium Level 129 mmol/L Potassium Level 4.7 mmol/L Chloride Level 90 mmol/L Carbon Dioxide Level 34 mmol/L Anion Gap 5.0 mmol/L Blood Urea Nitrogen 18 mg/dl Creatinine 1.06 mg/dl Est Creatinine Clear Calc Drug Dose 44.7 ml/min Estimated GFR () 55.4 Estimated GFR (Non- 47.8 BUN/Creatinine Ratio 17.3 Random Glucose 109 mg/dl Calcium Level 9.3 mg/dl Magnesium Level 2.2 mg/dl Total Bilirubin 0.7 mg/dl Direct Bilirubin 0.2 mg/dl Aspartate Amino Transf (AST/SGOT) 22 U/L Alanine Aminotransferase (ALT/SGPT) 20 U/L Alkaline Phosphatase 86 U/L Total Creatine Kinase 51 U/L Creatine Kinase MB 1.6 ng/ml Creatine Kinase MB Ratio 3.1 Troponin I < 0.015 ng/ml Pro-B-Type Natriuretic Peptide 4710 pg/ml Total Protein 7.6 gm/dl Albumin 3.3 gm/dl Bedside Lactic Acid Venous 1.18 mmol/L Bedside Hemoglobin 11.9 g/dl Bedside Hematocrit 35 % Bedside Blood Gas pH (LAB) 7.32 Bedside Blood Gas pCO2 (LAB) 80 mmHg Bedside Blood Gas pO2 (LAB) 360 mmHg Bedside Blood Gas HCO3 (LAB) 41 meq/L Bedside Blood Gas Total CO2 > 40 mEq/l Bedside Blood Gas Base Excess (LAB) 15.0 meq/L Bedside Blood Gas O2 Saturation 100.0 % Bedside Sodium 128 mEq/L Bedside Potassium 5.1 mEq/L Bedside Venous pH 7.25 Bedside Venous pCO2 91 mmHg Bedside Venous pO2 40 mmHg Bedside Venous HCO3 40 meq/L Bedside Venous Blood Total CO2 > 40 mEq/l Bedside Venous Blood O2 Saturation 62.0 % Bedside Venous Blood Base Excess 12.0 meq/L Diagnostic Results Reviewed outpatient records: No outpatient follow-up since December 2016 with cardiology Reviewed previous hospital notes and consults: ENT patient declined evaluation for biphasic stridor which included possible laryngoscopy Reviewed pulmonary consultation and follow-up progress notes from November 07 , : There is report of asthma, other records have indicated COPD, there is report of the stating the patient needs 3 L home oxygen, it is unclear who is prescribing the oxygen therapy however in discussion with the court appointed surrogate the states that the patient's oxygen levels can become too high which decrease her mental status. If this is the case these signs are more consistent with end-stage COPD with a hypoxic respiratory drive. Reviewed cardiology consultation and follow-up notes, reviewed the echo from November 05, 2017, ejection fraction is 55-60% normal ventricular systolic function , prior to this last echocardiogram was obtained in 2009 at that time there appeared to be impaired left ventricular relaxation Assessment & Plan Reason Critically Ill: 87-year-old female with respiratory distress secondary to acute hypoxic hypercarbic respiratory failure PLAN: Neuro: Acute encephalopathy -Likely metabolic in process secondary to hypercarbia Baseline dementia -Elements of vascular dementia noted on previous records Resp: Hypercarbic respiratory failure pleural effusions -The case is somewhat complex as I am unable to find formal diagnostics at this time, however the patient does have a significantly elevated bicarb at 34 which suggests chronic respiratory acidosis with a PCO2 ranging anywhere from 50 -60 mmHg -Additionally with the bilateral pleural effusions, that can be indicative of chronic congestive heart failure,, she did not undergo thoracentesis at that time. -This is the second time the patient has had hypercarbic hypoxic respiratory failure, I anticipate this will recur in the future CV: Hypertension Congestive heart failure -Limited bedside echocardiogram and long ultrasound revealed bilateral B lines consistent with volume overload, the patient has significant pretibial edema and the left ventricle appeared to be decreased in systolic function. I have reviewed her prior records and while her EF was largely unremarkable I do believe the patient has elements of systolic heart failure and likely elements of diastolic heart failure given the abnormal relaxation pattern noted on her 2010 echocardiogram. -I will order a repeat limited echocardiogram at this time and continue with diuresis Elevated proBNP -4710, this is the highest the proBNP has been in the last 6 months which is highly suggestive of volume overload Fluids/Renal: History of HELEN -Patient's creatinine has varied from 0.83 - 1.38 Anasarca -Suspect volume overload Hyponatremia -Suspect hypervolemic hyponatremia -Follow-up serum osmolality and urine studies Mild lactic acidosis -Likely secondary to respiratory failure ID: Upper respiratory tract infection versus lower respiratory tract infection versus COPD exacerbation -Procalcitonin has been ordered -Procalcitonin's have been largely negative on previous admissions -Started broad-spectrum antibiotics in the ED -Continue with doxycycline for atypical coverage -Long ultrasound not consistent with obvious infection GI/Nutrition: Gallbladder edema noted on CT -More consistent with volume overload, LFTs within normal limits Hypoalbuminemia Heme: History of long-term anticoagulation use -Patient has been on and off Coumadin in previous several months -I feel the patient with the dementia and poor functional status which necessitated her placement in a personal fdc places her at a higher fall risk. I think the daily embolic risk outweighs the benefits until we have a better picture and total care plan Endocrine: Diabetes mellitus -ICU hyperglycemia protocol Hypothyroidism -Previous TSH and T4 within acceptable limits Vascular access: Peripheral IVs Code Status: Full Am requesting an ethics consultation to help solidify the goals of care. I have personally spent 95 minutes of critical care time in the direct management of this patient. This is a life/limb threatening event. This includes time spent evaluating patient, direct bedside care, chart review, placing orders, interpretation of diagnostic studies, discussion with consultants, patient, and/or family members regarding treatment decisions, as well as other required patient management activities. This time is exclusive of all separately billable procedures, and teaching time and separate from and in addition to any other critical care service time.
--- NOTE | 2018-03-12 18:53 | Procedure Note ---
Procedure Note Date of Service Mar 12, 2018. Procedure Note Critical Care Medicine Point of Care Bedside Ultrasound Procedure: Limited Bedside Lung Ultrasound Procedure Date: March 12, 2018 Indication: hypoxic respiratory failure Attending: Rita Oden DO Resident/Physician Butadiene Compressor Operator: Not applicable Organs Examined: Lung BLUE point (upper), BLUE point (lower), Phrenic Point (axillary), PLAPS point ( posterior) A lines visualized: Present, Hemithorax: Bilaterally B lines visualized: Present, Hemithorax: Bilaterally Lung Sliding: Present, Hemithorax: Bilaterally Tissue-like Sign: Absent, Hemithorax: Bilateral Shred Sign: Absent, Hemithorax: Bilateral Quad Sign: Absent, Hemithorax: Bilateral Sinusoid Sign: Absent, Hemithorax: Bilateral Type of effusions: Not applicable, Impression: Type A B profile, I believe is most consistent with volume overload as were significant B lines from the anterior blue point bilaterally Images obtained are saved for permanent record Critical Care Medicine Point of Care Bedside Ultrasound Procedure: Limited Transthoracic Echocardiogram Indication: Hypoxic respiratory failure with evidence of volume overload Date: March 12, 2018 Attending: Rita Oden DO Organs Examined: Heart Pericardial fluid: Absent Right ventricle size: Normal LV Contractility: Poor, with segmental wall motion abnormalities RV Contractility: Normal Impression: New echocardiographic changes, follow-up with formal echo Plan: Troponins are negative at this time I do not believe there is active cardiac ischemia going on and this is aspects of volume overload with acute on chronic diastolic and systolic heart failure will correlate with echo in morning Images obtained are saved for permanent record
[2018-03-12] MEDS ORDERED: ASPIRIN 300 MG SUPP PR ONE (19:30)
[2018-03-12] MEDS: METOPROLOL TARTRATE 1 MG/ML VIAL IV. SCH (19:30)
[2018-03-12] MEDS ORDERED: OXYB5TAB PO (19:48)
[2018-03-12] MEDS: METHYLPREDNISOLONE IV 40 MG in SYRINGE 0 ML IV SCH (19:53)
[2018-03-12] MEDS ORDERED: ALBUT/IPRATROP 3MG/0.5MG NEB 3 ML VIAL INH SCH (20:00)
[2018-03-12] MEDS: DOXYCYCLINE IV 100 MG in DEXTROSE 5% 100ML 100 ML IV SCH (20:43)
[2018-03-12 20:50] LABS: CREATININE RANDOM URINE 26.6 mg/dl
[2018-03-12] MEDS ORDERED: ALBUT/IPRATROP 3MG/0.5MG NEB 3 ML VIAL INH PRN (21:00)
[2018-03-12] MEDS: HEPARIN SOD 5000 UNIT/0.5 ML CARP SQ SCH (22:36)
[2018-03-12] MEDS ORDERED: DILT120C68 PO (23:35)
[2018-03-12] MEDS ORDERED: POTA-639 PO (23:36)
[2018-03-12] MEDS ORDERED: PNEUMOCOCCAL POLYSACCHARIDES 25 MCG/0.5 ML VIAL/SYR IM. ONE (23:45)
[2018-03-12] MEDS ORDERED: PNEUMOCOCCAL ADMINISTRATION CHARGE ONE (23:45)
[2018-03-13] VITALS (25 sets, daily range): BP systolic 117–172; BP diastolic 53–92; PULSE 60–90; TEMP 36.9–37.2; O2SAT 90–100; Ht 165.1 cm; Wt 97.9 kg
[2018-03-13 00:13] LABS: BLOOD UREA NITROGEN 19 mg/dl (7-18); CARBON DIOXIDE 37 mmol/L (21-32); CREATININE 1.17 mg/dl (0.60-1.20); GLUCOSE 145 mg/dl (70-99); POTASSIUM 4.8 mmol/L (3.5-5.1); SODIUM 130 mmol/L (136-145)
[2018-03-13] MEDS ORDERED: NOREPINEPHRINE BIT INJ 8 MG in DEXTROSE 5% 500ML 500 ML IV PRN (00:15)
[2018-03-13] MEDS: METHYLPREDNISOLONE IV 40 MG in SYRINGE 0 ML IV SCH ×3 (04:32→20:01)
[2018-03-13 05:02] LABS: HEMATOCRIT 38.4 % (37-47); HEMOGLOBIN 12.4 g/dL (12.0-16.0); IG# 0.01 K/uL (0.00-0.02); LYMPH % 7.4 %; LYMPH ABS # 0.41 K/uL (1.2-3.4); MEAN CELL VOLUME 93.2 fL (80-100); MEAN CORPUSCULAR HEMOGLOBIN 30.1 pg (25-34); MEAN CORPUSCULAR HGB CONC 32.3 g/dl (32-36); MEAN PLATELET VOLUME 9.1 fL (7.4-10.4); MONO % 1.6 %; MONO ABS # 0.09 K/uL (0.11-0.59); NEUT % 90.8 %; NEUT ABS # 5.05 K/uL (1.4-6.5); PLATELET COUNT 220 K/uL (130-400); RED CELL DISTRIBUTION WIDTH CV 15.2 % (11.5-14.5); RED CELL DISTRIBUTION WIDTH SD 51.7 fL (36.4-46.3); WHITE BLOOD COUNT 5.56 K/uL (4.8-10.8)
[2018-03-13 05:28] LABS: ALBUMIN 3.1 gm/dl (3.4-5.0); ALKALINE PHOSPHATASE 83 U/L (45-117); ALT/SGPT 20 U/L (12-78); AST/SGOT 15 U/L (15-37); BLOOD UREA NITROGEN 20 mg/dl (7-18); CALCIUM 8.8 mg/dl (8.5-10.1); CARBON DIOXIDE 35 mmol/L (21-32); CREATININE 1.12 mg/dl (0.60-1.20); GLUCOSE 139 mg/dl (70-99); PHOSPHORUS 3.7 mg/dl (2.5-4.9); POTASSIUM 4.6 mmol/L (3.5-5.1); SODIUM 129 mmol/L (136-145); TOTAL PROTEIN 6.6 gm/dl (6.4-8.2)
[2018-03-13] MEDS: METOPROLOL TARTRATE 1 MG/ML VIAL IV. SCH ×4 (06:31→18:07)
[2018-03-13] MEDS: HEPARIN SOD 5000 UNIT/0.5 ML CARP SQ SCH ×3 (06:31→22:29)
--- NOTE | 2018-03-13 07:55 | Progress Note ---
Medicine Progress Note Date & Time of Visit: Mar 13, 2018 at 07:45 . Subjective CC: Follow-up visit for respiratory failure -n-o- and other problems. [error corrected CANDI 03/15/18 @ 09:40] HPI: Admitted yesterday with acute on chronic respiratory failure requiring intubation for respiratory support. Remains sedated on ventilator. ROS: Unable to obtain due to patient's condition. . Objective Last 8 Hrs Date Time Temp Pulse Resp B/P (MAP) Pulse Ox O2 Delivery O2 Flow Rate FiO2 03/13/18 06:31 71 153/57 03/13/18 03:25 60 03/13/18 03:01 65 12 144/65 (91) 96 03/13/18 02:01 63 17 138/76 (96) 97 03/13/18 01:01 67 15 129/59 (82) 98 03/13/18 00:10 60 03/13/18 00:01 37.2 63 16 136/56 (82) 98 03/13/18 00:00 58 129/59 Physical Exam: General- intubated, sedated, no apparent distress Eyes- sclerae anicteric ENT- oral ETT Lungs- coarse breath sounds, scattered rhonchi, mild wheezing Cardiovascular- irregular, no murmur or gallop appreciated; difficult to assess neck veins; 1+ pretibial edema Abdomen- slightly distended, + bowel sounds, soft, nontender - De Oliveira cath draining clear urine Extremities- no cyanosis; no apparent calf tenderness; status post amputation right second toe Neuro- sedated; pupils approximately 2 mm, reactive Skin- warm & dry . Laboratory Results: Last 24 Hours Test 03/12/18 16:05 03/12/18 16:09 03/12/18 16:12 03/12/18 16:13 Venous Blood pH 7.21 Venous Blood Partial Pressure CO2 105 mmHg Venous Blood Partial Pressure O2 38 mmHg Venous Blood HCO3 42 mmol/L Venous Blood Oxygen Saturation 61.0 % Venous Blood Base Excess 9.8 mEq/L Bedside Hemoglobin 13.3 g/dl Bedside Hematocrit 39 % Bedside Sodium 132 mEq/L Bedside Potassium 5.6 mEq/L Bedside Chloride 84 mEq/L Bedside Total CO2 > 40 mEq/l Anion Gap 14.0 mmol/L 5.0 mmol/L Bedside Blood Urea Nitrogen 25 mg/dl Bedside Creatinine 1.1 mg/dl Bedside Glucose (other) 117 mg/dl Bedside Ionized Calcium (Janay) 1.22 mmol/l White Blood Count 7.43 K/uL Red Blood Count 3.97 M/uL Hemoglobin 12.1 g/dL Hematocrit 38.3 % Mean Corpuscular Volume 96.5 fL Mean Corpuscular Hemoglobin 30.5 pg Mean Corpuscular Hemoglobin Concent 31.6 g/dl Platelet Count 236 K/uL Mean Platelet Volume 9.2 fL Neutrophils (%) (Auto) 74.1 % Lymphocytes (%) (Auto) 12.2 % Monocytes (%) (Auto) 12.0 % Eosinophils (%) (Auto) 1.2 % Basophils (%) (Auto) 0.4 % Neutrophils # (Auto) 5.50 K/uL Lymphocytes # (Auto) 0.91 K/uL Monocytes # (Auto) 0.89 K/uL Eosinophils # (Auto) 0.09 K/uL Basophils # (Auto) 0.03 K/uL RDW Standard Deviation 54.7 fL RDW Coefficient of Variation 15.6 % Immature Granulocyte % (Auto) 0.1 % Immature Granulocyte # (Auto) 0.01 K/uL Prothrombin Time 10.9 SECONDS Prothromb Time International Ratio 1.0 Sodium Level 129 mmol/L Potassium Level 4.7 mmol/L Chloride Level 90 mmol/L Carbon Dioxide Level 34 mmol/L Blood Urea Nitrogen 18 mg/dl Creatinine 1.06 mg/dl Est Creatinine Clear Calc Drug Dose 44.7 ml/min Estimated GFR () 55.4 Estimated GFR (Non- 47.8 BUN/Creatinine Ratio 17.3 Random Glucose 109 mg/dl Calcium Level 9.3 mg/dl Magnesium Level 2.2 mg/dl Total Bilirubin 0.7 mg/dl Direct Bilirubin 0.2 mg/dl Aspartate Amino Transf (AST/SGOT) 22 U/L Alanine Aminotransferase (ALT/SGPT) 20 U/L Alkaline Phosphatase 86 U/L Total Creatine Kinase 51 U/L Creatine Kinase MB 1.6 ng/ml Creatine Kinase MB Ratio 3.1 Troponin I < 0.015 ng/ml Pro-B-Type Natriuretic Peptide 4710 pg/ml Total Protein 7.6 gm/dl Albumin 3.3 gm/dl Bedside Lactic Acid Venous 1.18 mmol/L Test 03/12/18 16:42 03/12/18 17:18 8/16/18 18:15 03/12/18 19:18 Bedside Hemoglobin 11.9 g/dl Bedside Hematocrit 35 % Bedside Blood Gas pH (LAB) 7.32 Bedside Blood Gas pCO2 (LAB) 80 mmHg Bedside Blood Gas pO2 (LAB) 360 mmHg Bedside Blood Gas HCO3 (LAB) 41 meq/L Bedside Blood Gas Total CO2 > 40 mEq/l Bedside Blood Gas Base Excess (LAB) 15.0 meq/L Bedside Blood Gas O2 Saturation 100.0 % Bedside Sodium 128 mEq/L Bedside Potassium 5.1 mEq/L Bedside Venous pH 7.25 Bedside Venous pCO2 91 mmHg Bedside Venous pO2 40 mmHg Bedside Venous HCO3 40 meq/L Bedside Venous Blood Total CO2 > 40 mEq/l Bedside Venous Blood O2 Saturation 62.0 % Bedside Venous Blood Base Excess 12.0 meq/L Urine Color YELLOW Urine Appearance CLEAR Urine pH 7.0 Urine Specific [place] 1.011 Urine Protein 1+ Urine Glucose (UA) NEG Urine Ketones NEG Urine Occult Blood TRACE Urine Nitrite NEG Urine Bilirubin NEG Urine Urobilinogen NEG Urine Leukocyte Esterase NEG Urine WBC (Auto) 1-5 /hpf Urine RBC (Auto) 0-4 /hpf Urine Hyaline Casts (Auto) 10-30 /lpf Urine Epithelial Cells (Auto) >30 /lpf Urine Bacteria (Auto) NEG Urine Renal Epithelial Cells 0-5 /lpf Troponin I < 0.015 ng/ml Test 03/12/18 20:20 03/12/18 23:36 03/13/18 04:27 Urine Osmolality 311 mOms/kg Urine Random Creatinine 26.6 mg/dl Urine Random Sodium 59 mEq/L Sodium Level 130 mmol/L 129 mmol/L Potassium Level 4.8 mmol/L 4.6 mmol/L Chloride Level 89 mmol/L 89 mmol/L Carbon Dioxide Level 37 mmol/L 35 mmol/L Anion Gap 4.0 mmol/L 5.0 mmol/L Blood Urea Nitrogen 19 mg/dl 20 mg/dl Creatinine 1.17 mg/dl 1.12 mg/dl Est Creatinine Clear Calc Drug Dose 41.6 ml/min 43.5 ml/min Estimated GFR () 49.2 51.9 Estimated GFR (Non- 42.5 44.8 BUN/Creatinine Ratio 15.9 17.6 Random Glucose 145 mg/dl 139 mg/dl Osmolality 282 mOsm/kg Calcium Level 9.0 mg/dl 8.8 mg/dl Magnesium Level 2.0 mg/dl 2.1 mg/dl Troponin I < 0.015 ng/ml < 0.015 ng/ml Procalcitonin < 0.05 ng/ml White Blood Count 5.56 K/uL Red Blood Count 4.12 M/uL Hemoglobin 12.4 g/dL Hematocrit 38.4 % Mean Corpuscular Volume 93.2 fL Mean Corpuscular Hemoglobin 30.1 pg Mean Corpuscular Hemoglobin Concent 32.3 g/dl Platelet Count 220 K/uL Mean Platelet Volume 9.1 fL Neutrophils (%) (Auto) 90.8 % Lymphocytes (%) (Auto) 7.4 % Monocytes (%) (Auto) 1.6 % Eosinophils (%) (Auto) 0.0 % Basophils (%) (Auto) 0.0 % Neutrophils # (Auto) 5.05 K/uL Lymphocytes # (Auto) 0.41 K/uL Monocytes # (Auto) 0.09 K/uL Eosinophils # (Auto) 0.00 K/uL Basophils # (Auto) 0.00 K/uL RDW Standard Deviation 51.7 fL RDW Coefficient of Variation 15.2 % Immature Granulocyte % (Auto) 0.2 % Immature Granulocyte # (Auto) 0.01 K/uL Phosphorus Level 3.7 mg/dl Total Bilirubin 0.9 mg/dl Aspartate Amino Transf (AST/SGOT) 15 U/L Alanine Aminotransferase (ALT/SGPT) 20 U/L Alkaline Phosphatase 83 U/L Total Protein 6.6 gm/dl Albumin 3.1 gm/dl Globulin 3.5 gm/dl Albumin/Globulin Ratio 0.9 Date/Time Source Procedure Growth Status 03/12/18 16:05 Blood Blood Culture Pending Received 03/12/18 15:55 Blood Blood Culture Pending Received 03/12/18 18:35 Nasal MRSA DNA Surveillance Screen - Final Specimen Negative for MRSA by DNA Probe Complete Assessment & Plan ACUTE ON CHRONIC HYPOXIC AND HYPERCAPNIC RESPIRATORY FAILURE Chronic respiratory failure secondary to underlying obstructive lung disease. Chest x-ray at the time of admission demonstrated bibasilar infiltrates versus congestive heart failure. Afebrile. No white count. Pqrbg-ic-elkb lactate 1.18. Procalcitonin normal. BNP elevated. Worsening respiratory status could be secondary to decompensated congestive heart failure rather than pneumonia. Vent management and weaning per Critical Care Medicine. ALTERED MENTAL STATUS No acute intracranial findings on head CT. Probable encephalopathy / delirium secondary to hypoxia and hypercapnia. COPD/ASTHMA Receiving IV methylprednisolone and bronchodilators. CHRONIC ATRIAL FIBRILLATION Rate controlled, usually on metoprolol and diltiazem. Not anticoagulated, apparently secondary to fall risk. Resume oral meds when able. CHF / PULMONARY EDEMA Chronic left ventricular diastolic heart failure. Admission chest x-ray demonstrated suspected pulmonary edema. BNP elevated. Presented with acute on chronic left ventricular diastolic heart failure. Diurese as necessary. CEREBROVASCULAR DISEASE Continue antiplatelet therapy with aspirin and lipid-lowering therapy with atorvastatin. HYPERTENSION Monitor blood pressures and titrate therapy. HYPOTHYROIDISM Continue levothyroxine. DEMENTIA Monitor for delirium. VTE PROPHYLAXIS SQ heparin. Ambulate as able. GI PROPHYLAXIS PPI while critically ill. DISPOSITION Anticipated return to [facility]. . Current Inpatient Medications: Current Inpatient Medications Medications (Trade) Dose Ordered Sig/Mak Route Start Time Stop Time Status Last Admin Dose Admin Heparin Sodium (Porcine) (Heparin Sq 5000 Unit/0.5ml) 5,000 unit Q8 SQ 03/12/18 22:00 04/11/18 21:59 03/13/18 06:31 5,000 UNIT Miscellaneous Information (Icu Protocol For Hyperglycemia) 1 ea PRN PRN N/A 03/12/18 17:45 03/14/18 17:44 Levothyroxine Sodium 50 mcg/ Syringe 2.5 ml @ 2 mls/min DAILY@09 IV 03/13/18 09:00 04/12/18 08:59 Furosemide 40 mg/ Syringe 4 ml @ 4 mls/min DAILY IV 03/13/18 09:00 04/12/18 08:59 Pantoprazole Sodium 40 mg/ Syringe 10 ml @ 5 mls/min DAILY@11 IV 03/13/18 11:00 04/12/18 10:59 Metoprolol Tartrate (Lopressor Iv) 5 mg Q6 IV. 03/12/18 19:30 04/11/18 19:29 03/13/18 06:31 5 MG Doxycycline Hyclate 100 mg/ Dextrose 110 ml @ 50 mls/hr BID IV 03/12/18 21:00 03/19/18 20:59 03/12/18 20:43 50 MLS/HR Methylprednisolone Sodium Succinate 40 mg/Syringe 0.64 ml @ 1.5 mls/min Q8H IV 03/12/18 20:00 04/11/18 19:59 8/17/18 04:32 1.5 MLS/MIN Aspirin (Aspirin Supp) 300 mg DAILY MA 03/13/18 09:00 04/12/18 08:59 Albuterol/ Ipratropium (Duoneb) 3 ml QID PRN INH 03/12/18 21:00 04/11/18 19:59
[2018-03-13] MEDS: PANTOprazole INJ 40 MG in SYRINGE 0 ML IV SCH (09:22)
[2018-03-13] MEDS: ASPIRIN 300 MG SUPP PR SCH (09:22)
[2018-03-13] MEDS: FUROSEMIDE INJ 40 MG in SYRINGE 0 ML IV SCH (09:22)
[2018-03-13] MEDS: LEVOTHYROXINE SODIUM INJ 50 MCG in SYRINGE 0 ML IV SCH (09:23)
[2018-03-13] MEDS: DOXYCYCLINE IV 100 MG in DEXTROSE 5% 100ML 100 ML IV SCH (09:24)
--- NOTE | 2018-03-13 09:41 | Critical Care Progress Note ---
Critical Care Progress Note Date of Service Mar 13, 2018. ICU Day ICU Day Number: [address] Oden Assessment & Plan Reason Critically Ill: 87-year-old female with respiratory distress secondary to acute hypoxic hypercarbic respiratory failure PLAN: Neuro: Acute encephalopathy -Likely metabolic in process secondary to hypercarbia -Improved, following two-step commands this morning Baseline dementia -Elements of vascular dementia noted on previous records Resp: Hypercarbic respiratory failure improving -Patient liberated from ventilator this morning pleural effusions -The case is somewhat complex as I am unable to find formal diagnostics at this time, however the patient does have a significantly elevated bicarb at 34 which suggests chronic respiratory acidosis with a PCO2 ranging anywhere from 50 -60 mmHg -Additionally with the bilateral pleural effusions, that can be indicative of chronic congestive heart failure,, she did not undergo thoracentesis at that time. -This is the second time the patient has had hypercarbic hypoxic respiratory failure, I anticipate this will recur in the future CV: Hypertension: Improving Congestive heart failure -Limited bedside echocardiogram and long ultrasound revealed bilateral B lines consistent with volume overload, the patient has significant pretibial edema and the left ventricle appeared to be decreased in systolic function. I have reviewed her prior records and while her EF was largely unremarkable I do believe the patient has elements of systolic heart failure and likely elements of diastolic heart failure given the abnormal relaxation pattern noted on her 2010 echocardiogram. -Repeat echocardiogram pending Elevated proBNP -4710, this is the highest the proBNP has been in the last 6 months which is highly suggestive of volume overload Fluids/Renal: History of HELEN -Patient's creatinine has varied from 0.83 - 1.38 Anasarca -Suspect volume overload Hyponatremia -Suspect hypervolemic hyponatremia -Serum osmolality within normal limits ID: Upper respiratory tract infection versus lower respiratory tract infection versus COPD exacerbation -Procalcitonin: Unmeasurable -Discontinuing all antibiotics given negative procalcitonin, blood cultures pending GI/Nutrition: Gallbladder edema noted on CT -More consistent with volume overload, LFTs within normal limits Hypoalbuminemia Continue n.p.o. status today, will likely need swallow study in the near future Heme: History of long-term anticoagulation use -Patient has been on and off Coumadin in previous several months -I feel the patient with the dementia and poor functional status which necessitated her placement in a personal group home places her at a higher fall risk. I think the daily embolic risk outweighs the benefits until we have a better picture and total care plan DVT prophylaxis: Heparin subcu 5000 every 8 Endocrine: Diabetes mellitus -ICU hyperglycemia protocol Hypothyroidism -Previous TSH and T4 within acceptable limits Vascular access: Peripheral IVs Code Status: Full I have engaged the ethics committee as well as palliative care. [facility] is making full healthcare decisions. As noted in my previous admission I feel the patient declared her end-of-life wishes with regards to cardiac arrest and would fully support to physician decision to make the patient 's DO NOT RESUSCITATE in event of cardiac arrest. Patient was discussed on multidisciplinary rounds I have personally spent 100 minutes of critical care time in the direct management of this patient. This is a life/limb threatening event. This includes time spent evaluating patient, direct bedside care, chart review, placing orders, interpretation of diagnostic studies, discussion with consultants, patient, and/or family members regarding treatment decisions, as well as other required patient management activities. This time is exclusive of all separately billable procedures, and teaching time and separate from and in addition to any other critical care service time. Data Medications: Current Inpatient Medications Medications (Trade) Dose Ordered Sig/Mak Route Start Time Stop Time Status Last Admin Dose Admin Heparin Sodium (Porcine) (Heparin Sq 5000 Unit/0.5ml) 5,000 unit Q8 SQ 03/12/18 22:00 04/11/18 21:59 03/13/18 06:31 5,000 UNIT Miscellaneous Information (Icu Protocol For Hyperglycemia) 1 ea PRN PRN N/A 03/12/18 17:45 03/14/18 17:44 Levothyroxine Sodium 50 mcg/ Syringe 2.5 ml @ 2 mls/min DAILY@09 IV 03/13/18 09:00 04/12/18 08:59 03/13/18 09:23 2 MLS/MIN Furosemide 40 mg/ Syringe 4 ml @ 4 mls/min DAILY IV 03/13/18 09:00 04/12/18 08:59 Future hold 03/13/18 09:22 4 MLS/MIN Pantoprazole Sodium 40 mg/ Syringe 10 ml @ 5 mls/min DAILY@11 IV 03/13/18 11:00 04/12/18 10:59 03/13/18 09:22 5 MLS/MIN Metoprolol Tartrate (Lopressor Iv) 5 mg Q6 IV. 03/12/18 19:30 04/11/18 19:29 03/13/18 06:31 5 MG Doxycycline Hyclate 100 mg/ Dextrose 110 ml @ 50 mls/hr BID IV 03/12/18 21:00 03/19/18 20:59 03/13/18 09:24 50 MLS/HR Methylprednisolone Sodium Succinate 40 mg/Syringe 0.64 ml @ 1.5 mls/min Q8H IV 03/12/18 20:00 04/11/18 19:59 03/13/18 04:32 1.5 MLS/MIN Aspirin (Aspirin Supp) 300 mg DAILY IL 03/13/18 09:00 04/12/18 08:59 03/13/18 09:22 300 MG Albuterol/ Ipratropium (Duoneb) 3 ml QID PRN INH 03/12/18 21:00 04/11/18 19:59 Vital Signs: Date Time Temp Pulse Resp B/P (MAP) Pulse Ox O2 Delivery O2 Flow Rate FiO2 03/13/18 08:00 100 CPAP 60 Mechanical Ventilator 03/13/18 08:00 40 03/13/18 06:31 71 153/57 03/13/18 03:25 60 03/13/18 03:01 65 12 144/65 (91) 96 03/13/18 02:01 63 17 138/76 (96) 97 03/13/18 01:01 67 15 129/59 (82) 98 03/13/18 00:10 60 03/13/18 00:01 37.2 63 16 136/56 (82) 98 03/13/18 00:00 58 129/59 03/12/18 23:01 64 16 112/63 (79) 91 03/12/18 22:02 61 16 119/63 (81) 98 03/12/18 21:01 63 16 118/60 (79) 98 03/12/18 20:33 60 03/12/18 20:01 36.6 77 16 114/69 (84) 97 03/12/18 20:00 98 Mechanical Ventilator 60 03/12/18 20:00 60 03/12/18 19:57 67 17 110/54 (72) 96 03/12/18 19:30 58 114/69 03/12/18 19:02 60 15 132/72 (92) 100 03/12/18 18:48 36.3 73 19 161/87 100 Mechanical Ventilator 60 03/12/18 18:44 60 03/12/18 17:47 61 16 100 Mechanical Ventilator 03/12/18 17:32 64 16 142/85 98 Mechanical Ventilator 03/12/18 17:28 96/61 03/12/18 17:17 64 12 96/61 96 Mechanical Ventilator 03/12/18 17:12 151/92 03/12/18 17:10 69 13 98 Mechanical Ventilator 03/12/18 16:46 107/50 03/12/18 16:40 66 12 100 Mechanical Ventilator 03/12/18 16:39 100 03/12/18 16:38 100 03/12/18 16:35 63 12 100 03/12/18 16:32 94/65 03/12/18 16:25 81 17 100 03/12/18 16:23 141/78 03/12/18 16:15 36.7 104 28 120/ 100 Non-Rebreather 03/12/18 16:15 63 23 100 03/12/18 16:15 100 Non-Rebreather 03/12/18 16:05 63 20 100 03/12/18 16:01 68 03/12/18 15:55 68 20 100 03/12/18 15:45 65 21 100 03/12/18 15:35 70 21 03/12/18 15:28 130/114 Laboratory Results: Last 24 Hours Test 03/12/18 16:05 03/12/18 16:09 03/12/18 16:12 03/12/18 16:13 Venous Blood pH 7.21 Venous Blood Partial Pressure CO2 105 mmHg Venous Blood Partial Pressure O2 38 mmHg Venous Blood HCO3 42 mmol/L Venous Blood Oxygen Saturation 61.0 % Venous Blood Base Excess 9.8 mEq/L Bedside Hemoglobin 13.3 g/dl Bedside Hematocrit 39 % Bedside Sodium 132 mEq/L Bedside Potassium 5.6 mEq/L Bedside Chloride 84 mEq/L Bedside Total CO2 > 40 mEq/l Anion Gap 14.0 mmol/L 5.0 mmol/L Bedside Blood Urea Nitrogen 25 mg/dl Bedside Creatinine 1.1 mg/dl Bedside Glucose (other) 117 mg/dl Bedside Ionized Calcium (Janay) 1.22 mmol/l White Blood Count 7.43 K/uL Red Blood Count 3.97 M/uL Hemoglobin 12.1 g/dL Hematocrit 38.3 % Mean Corpuscular Volume 96.5 fL Mean Corpuscular Hemoglobin 30.5 pg Mean Corpuscular Hemoglobin Concent 31.6 g/dl Platelet Count 236 K/uL Mean Platelet Volume 9.2 fL Neutrophils (%) (Auto) 74.1 % Lymphocytes (%) (Auto) 12.2 % Monocytes (%) (Auto) 12.0 % Eosinophils (%) (Auto) 1.2 % Basophils (%) (Auto) 0.4 % Neutrophils # (Auto) 5.50 K/uL Lymphocytes # (Auto) 0.91 K/uL Monocytes # (Auto) 0.89 K/uL Eosinophils # (Auto) 0.09 K/uL Basophils # (Auto) 0.03 K/uL RDW Standard Deviation 54.7 fL RDW Coefficient of Variation 15.6 % Immature Granulocyte % (Auto) 0.1 % Immature Granulocyte # (Auto) 0.01 K/uL Prothrombin Time 10.9 SECONDS Prothromb Time International Ratio 1.0 Sodium Level 129 mmol/L Potassium Level 4.7 mmol/L Chloride Level 90 mmol/L Carbon Dioxide Level 34 mmol/L Blood Urea Nitrogen 18 mg/dl Creatinine 1.06 mg/dl Est Creatinine Clear Calc Drug Dose 44.7 ml/min Estimated GFR () 55.4 Estimated GFR (Non- 47.8 BUN/Creatinine Ratio 17.3 Random Glucose 109 mg/dl Calcium Level 9.3 mg/dl Magnesium Level 2.2 mg/dl Total Bilirubin 0.7 mg/dl Direct Bilirubin 0.2 mg/dl Aspartate Amino Transf (AST/SGOT) 22 U/L Alanine Aminotransferase (ALT/SGPT) 20 U/L Alkaline Phosphatase 86 U/L Total Creatine Kinase 51 U/L Creatine Kinase MB 1.6 ng/ml Creatine Kinase MB Ratio 3.1 Troponin I < 0.015 ng/ml Pro-B-Type Natriuretic Peptide 4710 pg/ml Total Protein 7.6 gm/dl Albumin 3.3 gm/dl Bedside Lactic Acid Venous 1.18 mmol/L Test 03/12/18 16:42 03/12/18 17:18 03/12/18 18:15 03/12/18 19:18 Bedside Hemoglobin 11.9 g/dl Bedside Hematocrit 35 % Bedside Blood Gas pH (LAB) 7.32 Bedside Blood Gas pCO2 (LAB) 80 mmHg Bedside Blood Gas pO2 (LAB) 360 mmHg Bedside Blood Gas HCO3 (LAB) 41 meq/L Bedside Blood Gas Total CO2 > 40 mEq/l Bedside Blood Gas Base Excess (LAB) 15.0 meq/L Bedside Blood Gas O2 Saturation 100.0 % Bedside Sodium 128 mEq/L Bedside Potassium 5.1 mEq/L Bedside Venous pH 7.25 Bedside Venous pCO2 91 mmHg Bedside Venous pO2 40 mmHg Bedside Venous HCO3 40 meq/L Bedside Venous Blood Total CO2 > 40 mEq/l Bedside Venous Blood O2 Saturation 62.0 % Bedside Venous Blood Base Excess 12.0 meq/L Urine Color YELLOW Urine Appearance CLEAR Urine pH 7.0 Urine Specific [place] 1.011 Urine Protein 1+ Urine Glucose (UA) NEG Urine Ketones NEG Urine Occult Blood TRACE Urine Nitrite NEG Urine Bilirubin NEG Urine Urobilinogen NEG Urine Leukocyte Esterase NEG Urine WBC (Auto) 1-5 /hpf Urine RBC (Auto) 0-4 /hpf Urine Hyaline Casts (Auto) 10-30 /lpf Urine Epithelial Cells (Auto) >30 /lpf Urine Bacteria (Auto) NEG Urine Renal Epithelial Cells 0-5 /lpf Troponin I < 0.015 ng/ml Test 03/12/18 20:20 03/12/18 23:36 03/13/18 04:27 Urine Osmolality 311 mOms/kg Urine Random Creatinine 26.6 mg/dl Urine Random Sodium 59 mEq/L Sodium Level 130 mmol/L 129 mmol/L Potassium Level 4.8 mmol/L 4.6 mmol/L Chloride Level 89 mmol/L 89 mmol/L Carbon Dioxide Level 37 mmol/L 35 mmol/L Anion Gap 4.0 mmol/L 5.0 mmol/L Blood Urea Nitrogen 19 mg/dl 20 mg/dl Creatinine 1.17 mg/dl 1.12 mg/dl Est Creatinine Clear Calc Drug Dose 41.6 ml/min 43.5 ml/min Estimated GFR () 49.2 51.9 Estimated GFR (Non- 42.5 44.8 BUN/Creatinine Ratio 15.9 17.6 Random Glucose 145 mg/dl 139 mg/dl Osmolality 282 mOsm/kg Calcium Level 9.0 mg/dl 8.8 mg/dl Magnesium Level 2.0 mg/dl 2.1 mg/dl Troponin I < 0.015 ng/ml < 0.015 ng/ml Procalcitonin < 0.05 ng/ml White Blood Count 5.56 K/uL Red Blood Count 4.12 M/uL Hemoglobin 12.4 g/dL Hematocrit 38.4 % Mean Corpuscular Volume 93.2 fL Mean Corpuscular Hemoglobin 30.1 pg Mean Corpuscular Hemoglobin Concent 32.3 g/dl Platelet Count 220 K/uL Mean Platelet Volume 9.1 fL Neutrophils (%) (Auto) 90.8 % Lymphocytes (%) (Auto) 7.4 % Monocytes (%) (Auto) 1.6 % Eosinophils (%) (Auto) 0.0 % Basophils (%) (Auto) 0.0 % Neutrophils # (Auto) 5.05 K/uL Lymphocytes # (Auto) 0.41 K/uL Monocytes # (Auto) 0.09 K/uL Eosinophils # (Auto) 0.00 K/uL Basophils # (Auto) 0.00 K/uL RDW Standard Deviation 51.7 fL RDW Coefficient of Variation 15.2 % Immature Granulocyte % (Auto) 0.2 % Immature Granulocyte # (Auto) 0.01 K/uL Phosphorus Level 3.7 mg/dl Total Bilirubin 0.9 mg/dl Aspartate Amino Transf (AST/SGOT) 15 U/L Alanine Aminotransferase (ALT/SGPT) 20 U/L Alkaline Phosphatase 83 U/L Total Protein 6.6 gm/dl Albumin 3.1 gm/dl Globulin 3.5 gm/dl Albumin/Globulin Ratio 0.9
--- NOTE | 2018-03-13 12:37 | Palliative Care Consultation ---
Consultation Date of Consultation: Mar 13, 2018. Requesting Physician: Dr. Oden Attending Physician: Dr. Gilliam Reason for Consultation: Goals of care/Ethics consult History of Present Illness This 87 year old female patient with PMH COPD, oxygen-dependence, atrial fibrillation, hypothyroidism, ambulatory dysfunction and vascular dementia, presented to the hospital yesterday with altered mental status, lethargy, and hypoxia from the [facility]. History obtained from report and record as patient remains lethargic today and no family at bedside. In reviewing records, patient was here 11/04/17-11/17/17 with respiratory distress, transferred from [facility]. She was intubated in ED and sent to ICU for hypercapnic respiratory failure. Was treated as asthma exacerbation, treated for pneumonia and afib. She also has a component of CHF, echo at the time showed EF 55-60%, normal LV systolic function, normal RV systolic function, grossly no valvulopathy. The critical care note at that time indicated that when patient was extubated, she was competent to make medical decisions and understood the difference between cardiac arrest and respiratory insufficiency vs. respiratory arrest. In the event of cardiac arrest, she did not want to be resuscitated, but was okay with short-term intubation for respiratory insufficiency/respiratory arrest. It is well-documented that physicians were not comfortable discharging patient to her home as she was significantly weak, requiring multiple-person assist to get out of bed. During hospitalization patient had significant physical and cognitive decline. was adamant that he wanted to take patient home, but it was felt by health care team to be unsafe. Patient was ultimately discharged home with home health at the insistence of the patient's Edward. That night, patient had several BMs and fell. Office of aging was contacted, who accepted the case for protective/safety evaluation in the home. The patient went to [facility] ED. Temporary guardianship was obtained at that time through [employer] and patient was admitted to [facility] until the patient's could declutter/rearrange the house and 17/02 caregivers could be arranged in the home. Patient was sent back to [facility]'s ED on 12/15/17 with altered mental status. CXR in ED at the time showed possible left basilar pneumonia, she was hypoxic with saturations in 80s. She was refusing oxygen and some other treatments, but was treated for pneumonia and COPD exacerbation. Patient was admitted until 02/25/18 due to chronic diastolic heart faiure, respiratory failure /COPD, afib, and disposition issues related to guardianship/medical decision making. During this admission patient was having periods of confusion/ disorientation due to dementia vs. metabolic encephalopathy. She returned to her baseline which was oriented x2, still occasionally refusing some medications and treatments. She was ultimately discharged back to the [facility]. There was a final court hearing scheduled for April 02, 2018 for permanent guardianship through [employer]. When patient arrived to ED yesterday, documentation states that the patient's temporary guardian, Lo Bond, who is the directory at [employer], was contacted. She stated that her authority over medical decision making is limited, but patient's Aakash Huggins was not to be making patient's medical decisions without their knowledge/consent. Patient was admitted to ICU for decompensated hypoxic, hypercarbic respiratory failure on ventilator. This morning, patient was doing well on CPAP trial and has since been extubated. She remains lethargic and unable to participate in conversation. Does follow commands and is in no distress. There is a palliative care consult to help establish goals of care as well as an ethics committee consult, which I also serve on. The ethical dilemma remains that patient did make a decision back in October to be DNR in event of cardiac arrest, but this was never made official through [employer], and patient is now unable to make decisions. Furthermore, any medical decision making must be done through guardian from [employer] ([employer]) who then communicates with patient's , Aakash Huggins. I spoke with Dasia Go RNmanager rn case from [employer]. She stated that they are assisting with making any medical decisions. If patient is to be DNR, two physicians (one needing to be the hospitalist) must state that this is appropriate, then she (or other appointment [employer] manager of case management ) will then work with patient's to make such a decision. I advised her that at this very time, it has not been determined that patient is end-stage or terminal, but there of course is some concern that with her age, multiple comorbidities, and now frequent readmissions for respiratory failure, that she may be approaching this. She verbalized understanding and asked for updated clinical notes so they can follow along. She emailed court orders stating [employer]'s stipulations and abilities. I have placed all documents on the patient's chart. I updated Dr. Oden and Dr. Gilliam as well as communicated with service excellence and case management teams. For now, patient will remain a full code with full treatment until the physicians involved in her care determine otherwise. Past Medical/Surgical History Medical History: (1) Altered mental status (2) Atrial fibrillation (3) Atrial fibrillation (4) Carotid artery disease (5) Cerebrovascular disease (6) Change in mental status (7) CO2 retention (8) COPD (chronic obstructive pulmonary disease) (9) Dementia (10) Diastolic CHF (11) Exacerbation of asthma (12) Hypertension (13) Hypothyroidism (14) Knee Joint Replacement Status (15) Respiratory distress (16) Symptomatic bradycardia (17) Urinary incontinence (18) UTI (urinary tract infection) Surgical Problems: (1) S/P placement of cardiac pacemaker Family History uncertain, patient unable to provide history Social History Smoking Status: Unknown if Ever Smoked Drug Use: none Marital Status: Occupation Status: retired Review of Systems unable to obtain due to patient's condition Allergies Coded Allergies: Penicillins (Verified Allergy, Unknown, RXN TO AMOXICILLIN, 12/15/17) Adhesives (Verified Adverse Reaction, Mild, RXN TO TAPE, 12/15/17) Medications Current Inpatient Medications Medications (Trade) Dose Ordered Sig/Mak Route Start Time Stop Time Status Last Admin Dose Admin Heparin Sodium (Porcine) (Heparin Sq 5000 Unit/0.5ml) 5,000 unit Q8 SQ 03/12/18 22:00 04/11/18 21:59 03/13/18 06:31 5,000 UNIT Miscellaneous Information (Icu Protocol For Hyperglycemia) 1 ea PRN PRN N/A 03/12/18 17:45 03/14/18 17:44 Levothyroxine Sodium 50 mcg/ Syringe 2.5 ml @ 2 mls/min DAILY@09 IV 03/13/18 09:00 04/12/18 08:59 03/13/18 09:23 2 MLS/MIN Furosemide 40 mg/ Syringe 4 ml @ 4 mls/min DAILY IV 03/13/18 09:00 04/12/18 08:59 Future hold 03/13/18 09:22 4 MLS/MIN Pantoprazole Sodium 40 mg/ Syringe 10 ml @ 5 mls/min DAILY@11 IV 03/13/18 11:00 04/12/18 10:59 03/13/18 09:22 5 MLS/MIN Metoprolol Tartrate (Lopressor Iv) 5 mg Q6 IV. 03/12/18 19:30 04/11/18 19:29 03/13/18 06:31 5 MG Methylprednisolone Sodium Succinate 40 mg/Syringe 0.64 ml @ 1.5 mls/min Q8H IV 03/12/18 20:00 04/11/18 19:59 03/13/18 04:32 1.5 MLS/MIN Aspirin (Aspirin Supp) 300 mg DAILY AR 03/13/18 09:00 04/12/18 08:59 03/13/18 09:22 300 MG Albuterol/ Ipratropium (Duoneb) 3 ml QID PRN INH 03/12/18 21:00 04/11/18 19:59 Physical Exam Date Time Temp Pulse Resp B/P (MAP) Pulse Ox O2 Delivery O2 Flow Rate FiO2 03/13/18 10:00 74 20 153/70 (97) 94 Oxymask 2.0 03/13/18 09:01 78 18 128/60 (82) 97 Oxymask 4.0 03/13/18 08:00 100 CPAP 60 Mechanical Ventilator 03/13/18 08:00 40 03/13/18 08:00 37.1 66 13 129/53 (78) 95 CPAP Mechanical Ventilator 03/13/18 07:02 63 7 117/56 (76) 97 CPAP Mechanical Ventilator 03/13/18 06:31 71 153/57 03/13/18 03:25 60 03/13/18 03:01 65 12 144/65 (91) 96 03/13/18 02:01 63 17 138/76 (96) 97 03/13/18 01:01 67 15 129/59 (82) 98 03/13/18 00:10 60 03/13/18 00:01 37.2 63 16 136/56 (82) 98 03/13/18 00:00 58 129/59 03/12/18 23:01 64 16 112/63 (79) 91 03/12/18 22:02 61 16 119/63 (81) 98 03/12/18 21:01 63 16 118/60 (79) 98 03/12/18 20:33 60 03/12/18 20:01 36.6 77 16 114/69 (84) 97 03/12/18 20:00 98 Mechanical Ventilator 60 03/12/18 20:00 60 03/12/18 19:57 67 17 110/54 (72) 96 03/12/18 19:30 58 114/69 03/12/18 19:02 60 15 132/72 (92) 100 03/12/18 18:48 36.3 73 19 161/87 100 Mechanical Ventilator 60 03/12/18 18:44 60 03/12/18 17:47 61 16 100 Mechanical Ventilator 03/12/18 17:32 64 16 142/85 98 Mechanical Ventilator 03/12/18 17:28 96/61 03/12/18 17:17 64 12 96/61 96 Mechanical Ventilator 03/12/18 17:12 151/92 03/12/18 17:10 69 13 98 Mechanical Ventilator 03/12/18 16:46 107/50 03/12/18 16:40 66 12 100 Mechanical Ventilator 03/12/18 16:39 100 03/12/18 16:38 100 03/12/18 16:35 63 12 100 03/12/18 16:32 94/65 03/12/18 16:25 81 17 100 03/12/18 16:23 141/78 03/12/18 16:15 36.7 104 28 120/ 100 Non-Rebreather 03/12/18 16:15 63 23 100 03/12/18 16:15 100 Non-Rebreather 03/12/18 16:05 63 20 100 03/12/18 16:01 68 03/12/18 15:55 68 20 100 03/12/18 15:45 65 21 100 03/12/18 15:35 70 21 03/12/18 15:28 130/114 General Appearance: no apparent distress, + obese Eyes: + pertinent finding (patient did not open eyes during exam) ENT: hearing grossly normal Neck: supple, no JVD Respiratory: no respiratory distress, no accessory muscle use, + decreased breath sounds (ateriorly ausculatated, decreased breath sounds due to body habitus) Cardiovascular: + irregularly irregular (paced afib), + normal peripheral pulses (bilateral radial and pedal pulses +2; +2-3 pitting edema to bilateral ankles and feet), + pertinent finding (distant heart sounds) Abdomen: normal bowel sounds, + distended (somewhat firm, may be patient's norm ), + pertinent finding (no wincing or grimacing during palpation) Neurologic/Psychiatric: + pertinent finding (lethargic, did not verbally respond. does follow commands) Laboratory Results Last 24 Hours Test 03/12/18 16:05 03/12/18 16:09 03/12/18 16:12 03/12/18 16:13 Venous Blood pH 7.21 Venous Blood Partial Pressure CO2 105 mmHg Venous Blood Partial Pressure O2 38 mmHg Venous Blood HCO3 42 mmol/L Venous Blood Oxygen Saturation 61.0 % Venous Blood Base Excess 9.8 mEq/L Bedside Hemoglobin 13.3 g/dl Bedside Hematocrit 39 % Bedside Sodium 132 mEq/L Bedside Potassium 5.6 mEq/L Bedside Chloride 84 mEq/L Bedside Total CO2 > 40 mEq/l Anion Gap 14.0 mmol/L 5.0 mmol/L Bedside Blood Urea Nitrogen 25 mg/dl Bedside Creatinine 1.1 mg/dl Bedside Glucose (other) 117 mg/dl Bedside Ionized Calcium (Janay) 1.22 mmol/l White Blood Count 7.43 K/uL Red Blood Count 3.97 M/uL Hemoglobin 12.1 g/dL Hematocrit 38.3 % Mean Corpuscular Volume 96.5 fL Mean Corpuscular Hemoglobin 30.5 pg Mean Corpuscular Hemoglobin Concent 31.6 g/dl Platelet Count 236 K/uL Mean Platelet Volume 9.2 fL Neutrophils (%) (Auto) 74.1 % Lymphocytes (%) (Auto) 12.2 % Monocytes (%) (Auto) 12.0 % Eosinophils (%) (Auto) 1.2 % Basophils (%) (Auto) 0.4 % Neutrophils # (Auto) 5.50 K/uL Lymphocytes # (Auto) 0.91 K/uL Monocytes # (Auto) 0.89 K/uL Eosinophils # (Auto) 0.09 K/uL Basophils # (Auto) 0.03 K/uL RDW Standard Deviation 54.7 fL RDW Coefficient of Variation 15.6 % Immature Granulocyte % (Auto) 0.1 % Immature Granulocyte # (Auto) 0.01 K/uL Prothrombin Time 10.9 SECONDS Prothromb Time International Ratio 1.0 Sodium Level 129 mmol/L Potassium Level 4.7 mmol/L Chloride Level 90 mmol/L Carbon Dioxide Level 34 mmol/L Blood Urea Nitrogen 18 mg/dl Creatinine 1.06 mg/dl Est Creatinine Clear Calc Drug Dose 44.7 ml/min Estimated GFR () 55.4 Estimated GFR (Non- 47.8 BUN/Creatinine Ratio 17.3 Random Glucose 109 mg/dl Calcium Level 9.3 mg/dl Magnesium Level 2.2 mg/dl Total Bilirubin 0.7 mg/dl Direct Bilirubin 0.2 mg/dl Aspartate Amino Transf (AST/SGOT) 22 U/L Alanine Aminotransferase (ALT/SGPT) 20 U/L Alkaline Phosphatase 86 U/L Total Creatine Kinase 51 U/L Creatine Kinase MB 1.6 ng/ml Creatine Kinase MB Ratio 3.1 Troponin I < 0.015 ng/ml Pro-B-Type Natriuretic Peptide 4710 pg/ml Total Protein 7.6 gm/dl Albumin 3.3 gm/dl Bedside Lactic Acid Venous 1.18 mmol/L Test 03/12/18 16:42 03/12/18 17:18 03/12/18 18:15 03/12/18 19:18 Bedside Hemoglobin 11.9 g/dl Bedside Hematocrit 35 % Bedside Blood Gas pH (LAB) 7.32 Bedside Blood Gas pCO2 (LAB) 80 mmHg Bedside Blood Gas pO2 (LAB) 360 mmHg Bedside Blood Gas HCO3 (LAB) 41 meq/L Bedside Blood Gas Total CO2 > 40 mEq/l Bedside Blood Gas Base Excess (LAB) 15.0 meq/L Bedside Blood Gas O2 Saturation 100.0 % Bedside Sodium 128 mEq/L Bedside Potassium 5.1 mEq/L Bedside Venous pH 7.25 Bedside Venous pCO2 91 mmHg Bedside Venous pO2 40 mmHg Bedside Venous HCO3 40 meq/L Bedside Venous Blood Total CO2 > 40 mEq/l Bedside Venous Blood O2 Saturation 62.0 % Bedside Venous Blood Base Excess 12.0 meq/L Urine Color YELLOW Urine Appearance CLEAR Urine pH 7.0 Urine Specific [place] 1.011 Urine Protein 1+ Urine Glucose (UA) NEG Urine Ketones NEG Urine Occult Blood TRACE Urine Nitrite NEG Urine Bilirubin NEG Urine Urobilinogen NEG Urine Leukocyte Esterase NEG Urine WBC (Auto) 1-5 /hpf Urine RBC (Auto) 0-4 /hpf Urine Hyaline Casts (Auto) 10-30 /lpf Urine Epithelial Cells (Auto) >30 /lpf Urine Bacteria (Auto) NEG Urine Renal Epithelial Cells 0-5 /lpf Troponin I < 0.015 ng/ml Test 03/12/18 20:20 03/12/18 23:36 03/13/18 04:27 03/13/18 11:02 Urine Osmolality 311 mOms/kg Urine Random Creatinine 26.6 mg/dl Urine Random Sodium 59 mEq/L Sodium Level 130 mmol/L 129 mmol/L Potassium Level 4.8 mmol/L 4.6 mmol/L Chloride Level 89 mmol/L 89 mmol/L Carbon Dioxide Level 37 mmol/L 35 mmol/L Anion Gap 4.0 mmol/L 5.0 mmol/L Blood Urea Nitrogen 19 mg/dl 20 mg/dl Creatinine 1.17 mg/dl 1.12 mg/dl Est Creatinine Clear Calc Drug Dose 41.6 ml/min 43.5 ml/min Estimated GFR () 49.2 51.9 Estimated GFR (Non- 42.5 44.8 BUN/Creatinine Ratio 15.9 17.6 Random Glucose 145 mg/dl 139 mg/dl Osmolality 282 mOsm/kg Calcium Level 9.0 mg/dl 8.8 mg/dl Magnesium Level 2.0 mg/dl 2.1 mg/dl Troponin I < 0.015 ng/ml < 0.015 ng/ml Procalcitonin < 0.05 ng/ml White Blood Count 5.56 K/uL Red Blood Count 4.12 M/uL Hemoglobin 12.4 g/dL Hematocrit 38.4 % Mean Corpuscular Volume 93.2 fL Mean Corpuscular Hemoglobin 30.1 pg Mean Corpuscular Hemoglobin Concent 32.3 g/dl Platelet Count 220 K/uL Mean Platelet Volume 9.1 fL Neutrophils (%) (Auto) 90.8 % Lymphocytes (%) (Auto) 7.4 % Monocytes (%) (Auto) 1.6 % Eosinophils (%) (Auto) 0.0 % Basophils (%) (Auto) 0.0 % Neutrophils # (Auto) 5.05 K/uL Lymphocytes # (Auto) 0.41 K/uL Monocytes # (Auto) 0.09 K/uL Eosinophils # (Auto) 0.00 K/uL Basophils # (Auto) 0.00 K/uL RDW Standard Deviation 51.7 fL RDW Coefficient of Variation 15.2 % Immature Granulocyte % (Auto) 0.2 % Immature Granulocyte # (Auto) 0.01 K/uL Phosphorus Level 3.7 mg/dl Total Bilirubin 0.9 mg/dl Aspartate Amino Transf (AST/SGOT) 15 U/L Alanine Aminotransferase (ALT/SGPT) 20 U/L Alkaline Phosphatase 83 U/L Total Protein 6.6 gm/dl Albumin 3.1 gm/dl Globulin 3.5 gm/dl Albumin/Globulin Ratio 0.9 Venous Blood pH 7.30 Venous Blood Partial Pressure CO2 82 mmHg Venous Blood Partial Pressure O2 30 mmHg Venous Blood HCO3 39 mmol/L Venous Blood Oxygen Saturation < 60.0 % Venous Blood Base Excess 9.9 mEq/L Assessment & Plan Problem list: Altered mental status with documented history of vascular dementia Hypoxic, hypercarbic respiratory failure COPD, oxygen-dependent Goals of care Palliative care recs: -Patient's respiratory status improved. Patient is now extubated and on 2L oxygen via Oxymask. Saturations maintaining 94% while I was in room. She has no accessory muscle use, no dyspnea. -Patient unable to participate in meaningful conversation or make medical decisions at this time. -Patient will remain full code with full treatment until otherwise decided by attending physicians, legal guardian, and patient's Aakash Huggins. -If decisions need to be made, [employer] [facility] [employer] needs to be contacted, who will then interface with patient's Aakash. Lo Laws is [facility]'s temporary appointed guardian who is very familiar with patient's case. -Lo Laws Director: [phone] (17/02) -Ari Joel [employer] Agent: [phone] (17/02) - Per manager rehab's note, patient's is allowed to visit and receive updates, but does not have the authority to make medical decisions for the patient on his own. -Prognosis is uncertain at this time. Disposition pending the hospitalization course. Thank you kindly for this consult. I will follow along to provide support in any way. Total time spent 180 minutes with >50% of time spent at patient's bedside and on unit collaborating with ICU physician and staff, coordinating care with case management/[employer]/Service Excellence, and collaborating with attending hospitalist physician.
[2018-03-13] MEDS ORDERED: BUMETANIDE IV 2 MG in SYRINGE 0 ML IV ONE (19:00)
[2018-03-13] MEDS ORDERED: NURSING VERBAL MED ORDER ONE (19:00)
[2018-03-14] VITALS (19 sets, daily range): BP systolic 100–154; BP diastolic 46–90; PULSE 56–105; TEMP 36.6–37.1; O2SAT 88–98
[2018-03-14] MEDS: METOPROLOL TARTRATE 1 MG/ML VIAL IV. SCH ×3 (00:20→11:34)
[2018-03-14] MEDS: METHYLPREDNISOLONE IV 40 MG in SYRINGE 0 ML IV SCH ×2 (05:36→11:33)
[2018-03-14] MEDS: HEPARIN SOD 5000 UNIT/0.5 ML CARP SQ SCH ×3 (05:45→22:30)
[2018-03-14] MEDS: ASPIRIN 300 MG SUPP PR SCH (07:47)
--- NOTE | 2018-03-14 08:05 | Critical Care Progress Note ---
Critical Care Progress Note Date of Service Mar 14, 2018. ICU Day ICU Day Number: [address] Oden Subjective Patient refused all interventions labs this morning. Much more conversant today however intermittently refusing to answer questions, however, eventually engages Objective General: Alert. nontoxic. Skin: Warm, dry, Head: Atraumatic Ears, nose, mouth and throat: airway patent Cardiovascular: Normal peripheral perfusion Respiratory: no respiratory distress Gastrointestinal: Non distended Musculoskeletal: No deformity Neuro: Orientation: Place: Knows this is a hospital and state, unknown city or floor of the hospital; nose month and reorients to day of week however year was off 3 of 5 points Registration: 3 of 3 points Attention and calculation: 4/5 points, second attempt got all answers correct Recall: 0/3 Language: I did not test writing a sentence or copying the design however she is able to name common objects has adequate speech and follow 3 steps commands I asked the patient to give me her daughter's birthdate she was able to give me month and day however was unable to state the year, this is also the same with her 's birthdate. Assessment & Plan Reason Critically Ill: 87-year-old female with respiratory distress secondary to acute hypoxic hypercarbic respiratory failure PLAN: Neuro: Acute encephalopathy: Improved Baseline dementia -Elements of vascular dementia noted on previous records -Patient clearly has deficiencies Resp: Hypercarbic respiratory failure: Acute on chronic -Patient liberated from ventilator March 13, 2018 pleural effusions -The case is somewhat complex as I am unable to find formal diagnostics at this time, however the patient does have a significantly elevated bicarb at 34 which suggests chronic respiratory acidosis with a PCO2 ranging anywhere from 50 -60 mmHg -Additionally with the bilateral pleural effusions, that can be indicative of chronic congestive heart failure,, she did not undergo thoracentesis at that time. -This is the second time the patient has had hypercarbic hypoxic respiratory failure, I anticipate this will recur in the future -Blood gas testing today revealed fully compensated respiratory acidosis, pH 7.487/58.7/68: This blood gases indicative of chronic hypercarbic respiratory failure -I will decrease the gradient in the BiPAP settings and continue BiPAP at night. Goal oxygen saturations will be 88-94% if she becomes somnolent we will recheck a arterial blood gas CV: Hypertension: Improving Congestive heart failure -Limited bedside echocardiogram and long ultrasound revealed bilateral B lines consistent with volume overload, the patient has significant pretibial edema and the left ventricle appeared to be decreased in systolic function. I have reviewed her prior records and while her EF was largely unremarkable I do believe the patient has elements of systolic heart failure and likely elements of diastolic heart failure given the abnormal relaxation pattern noted on her 2009 echocardiogram. -Repeat echocardiogram: Pending Elevated proBNP -4710, this is the highest the proBNP has been in the last 6 months which is highly suggestive of volume overload Fluids/Renal: History of HELEN -Patient's creatinine has varied from 0.83 - 1.38 Anasarca -Suspect volume overload -Patient 2.6 L negative Hyponatremia -Suspect hypervolemic hyponatremia -Serum osmolality within normal limits ID: Upper respiratory tract infection versus lower respiratory tract infection versus COPD exacerbation -Procalcitonin: Unmeasurable -Discontinuing all antibiotics given negative procalcitonin, blood cultures pending GI/Nutrition: Gallbladder edema noted on CT -More consistent with volume overload, LFTs within normal limits Hypoalbuminemia N.p.o. -Speech therapy evaluation -Last speech evaluation November 07, 2017, there is been significant change in the interval Heme: History of long-term anticoagulation use -Patient has been on and off Coumadin in previous several months -I feel the patient with the dementia and poor functional status which necessitated her placement in a personal fci places her at a higher fall risk. I think the daily embolic risk outweighs the benefits until we have a better picture and total care plan DVT prophylaxis: Heparin subcu 5000 every 8 Endocrine: Diabetes mellitus -ICU hyperglycemia protocol Hypothyroidism -Previous TSH and T4 within acceptable limits Vascular access: Peripheral IVs Code Status: Full I have engaged the ethics committee as well as palliative care. The [facility] is making full healthcare decisions. As noted in my previous admission I feel the patient declared her end-of-life wishes with regards to cardiac arrest and would fully support two physician decision to make the patient's DO NOT RESUSCITATE in event of cardiac arrest. Patient appears to be near baseline and I would consider stable for downgrade to telemetry status. Consults & Procedures Consultants: Palliative care Ethics committee Data Medications: Current Inpatient Medications Medications (Trade) Dose Ordered Sig/Mak Route Start Time Stop Time Status Last Admin Dose Admin Heparin Sodium (Porcine) (Heparin Sq 5000 Unit/0.5ml) 5,000 unit Q8 SQ 03/12/18 22:00 04/11/18 21:59 03/14/18 05:45 5,000 UNIT Miscellaneous Information (Icu Protocol For Hyperglycemia) 1 ea PRN PRN N/A 03/12/18 17:45 03/14/18 17:44 Levothyroxine Sodium 50 mcg/ Syringe 2.5 ml @ 2 mls/min DAILY@09 IV 03/13/18 09:00 04/12/18 08:59 03/13/18 09:23 2 MLS/MIN Furosemide 40 mg/ Syringe 4 ml @ 4 mls/min DAILY IV 03/13/18 09:00 04/12/18 08:59 Future hold 03/13/18 09:22 4 MLS/MIN Pantoprazole Sodium 40 mg/ Syringe 10 ml @ 5 mls/min DAILY@11 IV 03/13/18 11:00 04/12/18 10:59 03/13/18 09:22 5 MLS/MIN Metoprolol Tartrate (Lopressor Iv) 5 mg Q6 IV. 03/12/18 19:30 04/11/18 19:29 03/14/18 05:37 5 MG Methylprednisolone Sodium Succinate 40 mg/Syringe 0.64 ml @ 1.5 mls/min Q8H IV 03/12/18 20:00 04/11/18 19:59 03/14/18 05:36 1.5 MLS/MIN Aspirin (Aspirin Supp) [address] 03/13/18 09:00 04/12/18 08:59 03/13/18 09:22 300 MG Albuterol/ Ipratropium (Duoneb) 3 ml QID PRN INH 03/12/18 21:00 04/11/18 19:59 Vital Signs: Date Time Temp Pulse Resp B/P (MAP) Pulse Ox O2 Delivery O2 Flow Rate FiO2 03/14/18 06:01 73 21 134/76 (95) 93 BiPAP 28 03/14/18 05:50 86 95 28 03/14/18 05:37 81 03/14/18 05:01 84 20 119/84 (96) 93 BiPAP 28 03/14/18 04:01 37.1 79 17 138/56 (83) 94 BiPAP 28 03/14/18 04:00 BiPAP 28 8/18/18 03:01 70 17 124/63 (83) 95 BiPAP 28 818/18 02:10 83 95 28 81818 02:01 77 16 126/69 (88) 94 BiPAP 28 18/18 01:02 77 15 133/70 (91) 91 BiPAP 28 18/18 00:20 79 818/18 00:05 78 20 120/60 (80) 89 BiPAP 25 1818 00:01 86 16 100/46 (64) 88 BiPAP 25 17/18 23:59 BiPAP 25 03/13/18 23:01 69 15 128/55 (79) 90 BiPAP 30 18 22:25 90 94 30 18 22:02 87 20 146/68 (94) 95 Nasal Cannula 1.0 18 21:38 Nasal Cannula 1.0 03/13/18 21:01 76 21 172/71 (104) 92 Nasal Cannula 1.0 18 20:29 78 95 18 20:02 36.9 71 22 150/77 (101) 96 Nasal Cannula 2.0 03/13/18 19:01 62 25 131/55 (80) 94 BiPAP 30 18 18:07 79 135/63 18 18:00 79 15 135/63 (87) 96 BiPAP 30 18 17:00 69 15 118/62 (80) 95 30 18 16:00 36.9 65 18 125/69 (87) 95 BiPAP 30 18 15:45 75 98 30 18 15:00 79 18 141/92 (108) 95 BiPAP 18 14:45 72 96 30 03/13/18 14:00 60 18 144/92 (109) 90 Nasal Cannula 2.0 18 13:00 61 19 154/71 (98) 92 Nasal Cannula 4.0 18 12:07 74 166/73 18 12:00 37.0 64 19 166/73 (104) 95 Oxymask 2.0 03/13/18 11:00 65 25 146/76 (99) 96 Oxymask 2.0 03/13/18 10:00 74 20 153/70 (97) 94 Oxymask 2.0 03/13/18 09:01 78 18 128/60 (82) 97 Oxymask 4.0 03/13/18 08:00 100 CPAP 60 Mechanical Ventilator 03/13/18 08:00 40 03/13/18 08:00 37.1 66 13 129/53 (78) 95 CPAP Mechanical Ventilator 03/13/18 08:00 CPAP Laboratory Results: Last 24 Hours Test 03/13/18 11:02 03/13/18 12:12 03/13/18 14:45 03/13/18 16:03 Venous Blood pH 7.30 Venous Blood Partial Pressure CO2 82 mmHg Venous Blood Partial Pressure O2 30 mmHg Venous Blood HCO3 39 mmol/L Venous Blood Oxygen Saturation < 60.0 % Venous Blood Base Excess 9.9 mEq/L Bedside Glucose 152 mg/dl Blood Gas Sample Site R Radial L Radial Bedside Blood Gas pH (LAB) 7.36 7.41 Bedside Blood Gas pCO2 (LAB) 68 mmHg 61 mmHg Bedside Blood Gas pO2 (LAB) 65 mmHg 77 mmHg Bedside Blood Gas HCO3 (LAB) 38 meq/L 39 meq/L Bedside Blood Gas Total CO2 > 40 mEq/l > 40 mEq/l Bedside Blood Gas Base Excess (LAB) 13.0 meq/L 14.0 meq/L Bedside Blood Gas O2 Saturation 90.0 % 95.0 % Liborio Test Pass Pass Oxygen Delivery Device Cannula BIPAP Bedside FiO2 30 % Blood Gas IPAP 12 Test 03/13/18 17:58 03/14/18 00:33 03/14/18 07:39 Bedside Glucose 130 mg/dl 136 mg/dl
--- NOTE | 2018-03-14 08:18 | Progress Note ---
Medicine Progress Note Date & Time of Visit: Mar 14, 2018 at 07:50 . Subjective CC: Follow-up visit for respiratory failure -n-o- and other problems. [error corrected CANDI 03/15/18 @ 09:41] HPI: Extubated yesterday. Intermittent somnolence after extubation associated with CO2 retention. Has required intermittent BiPAP for ventilatory support. Awake and comfortable this morning at time of my assessment. Somewhat confused, doesn't know why she is in the hospital. Denies CP, cough, SOB, nausea, vomiting, or other problems. ROS: Constitutional- no fever Pulmonary- as noted above in HPI Cardiac- as noted above in HPI GI- no nausea, vomiting, diarrhea - De Oliveira cath . . Objective Last 8 Hrs Date Time Temp Pulse Resp B/P (MAP) Pulse Ox O2 Delivery O2 Flow Rate FiO2 03/14/18 06:01 73 21 134/76 (95) 93 BiPAP 28 03/14/18 05:50 86 95 28 03/14/18 05:37 81 03/14/18 05:01 84 20 119/84 (96) 93 BiPAP 28 03/14/18 04:01 37.1 79 17 138/56 (83) 94 BiPAP 28 03/14/18 04:00 BiPAP 28 03/14/18 03:01 70 17 124/63 (83) 95 BiPAP 28 03/14/18 02:10 83 95 28 03/14/18 02:01 77 16 126/69 (88) 94 BiPAP 28 03/14/18 01:02 77 15 133/70 (91) 91 BiPAP 28 03/14/18 00:20 79 03/14/18 00:05 78 20 120/60 (80) 89 BiPAP 25 Physical Exam: General- lying in bed; no apparent distress Eyes- sclerae anicteric Lungs- few scattered rhonchi, bibasilar rales, mild wheezing Cardiovascular- irregular, no murmur or gallop appreciated; difficult to assess neck veins; 1+ pretibial edema Abdomen- + bowel sounds, soft, nontender - De Oliveira cath draining clear urine Extremities- no cyanosis; no calf tenderness; status post amputation right second toe Neuro- alert, somewhat confused (realizes that she is in the hospital, cannot state its name; can state the month and year; not sure why she is here) Skin- warm & dry . Laboratory Results: Last 24 Hours Test 03/13/18 11:02 03/13/18 12:12 03/13/18 14:45 03/13/18 16:03 Venous Blood pH 7.30 Venous Blood Partial Pressure CO2 82 mmHg Venous Blood Partial Pressure O2 30 mmHg Venous Blood HCO3 39 mmol/L Venous Blood Oxygen Saturation < 60.0 % Venous Blood Base Excess 9.9 mEq/L Bedside Glucose 152 mg/dl Blood Gas Sample Site R Radial L Radial Bedside Blood Gas pH (LAB) 7.36 7.41 Bedside Blood Gas pCO2 (LAB) 68 mmHg 61 mmHg Bedside Blood Gas pO2 (LAB) 65 mmHg 77 mmHg Bedside Blood Gas HCO3 (LAB) 38 meq/L 39 meq/L Bedside Blood Gas Total CO2 > 40 mEq/l > 40 mEq/l Bedside Blood Gas Base Excess (LAB) 13.0 meq/L 14.0 meq/L Bedside Blood Gas O2 Saturation 90.0 % 95.0 % Liborio Test Pass Pass Oxygen Delivery Device Cannula BIPAP Bedside FiO2 30 % Blood Gas IPAP 12 Test 03/13/18 17:58 03/14/18 00:33 03/14/18 07:39 03/14/18 07:45 Bedside Glucose 130 mg/dl 136 mg/dl Blood Gas Sample Site L Radial Bedside Blood Gas pH (LAB) 7.50 Bedside Blood Gas pCO2 (LAB) 58 mmHg Bedside Blood Gas pO2 (LAB) 66 mmHg Bedside Blood Gas HCO3 (LAB) 45 meq/L Bedside Blood Gas Total CO2 > 40 mEq/l Bedside Blood Gas Base Excess (LAB) 21.0 meq/L Bedside Blood Gas O2 Saturation 94.0 % Liborio Test Pass Oxygen Delivery Device BIPAP Bedside Oxygen Rate (breaths/min) 12 Bedside FiO2 28 % Blood Gas IPAP 12 Assessment & Plan ACUTE ON CHRONIC HYPOXIC AND HYPERCAPNIC RESPIRATORY FAILURE Chronic respiratory failure secondary to underlying obstructive lung disease. Chest x-ray at the time of admission demonstrated bibasilar infiltrates versus congestive heart failure. Afebrile. No white count. Ednxm-pw-btcc lactate 1.18. Procalcitonin normal. BNP elevated. Worsening respiratory probably secondary to decompensated congestive heart failure rather than pneumonia. Initially required intubation and mechanical ventilation for ventilatory support. Extubated 03/13. ABG's post-intubation demonstrated persistent CO2 retention. Requiring intermittent BiPAP for ventilatory support. ALTERED MENTAL STATUS No acute intracranial findings on head CT. Probable encephalopathy / delirium secondary to hypoxia and hypercapnia. COPD/ASTHMA Receiving IV methylprednisolone and bronchodilators. CHRONIC ATRIAL FIBRILLATION Rate controlled, usually on metoprolol and diltiazem. Need to clarify anticoagulation strategy. Resume oral meds when able. CHF / PULMONARY EDEMA Echo 11/05/17 demonstrated normal left ventricular systolic function with LVEF 55 -60%. Chronic left ventricular diastolic heart failure. Admission chest x-ray demonstrated suspected pulmonary edema. BNP was elevated. Presented with acute on chronic left ventricular diastolic heart failure. Received IV furosemide with improvement. CEREBROVASCULAR DISEASE Continue antiplatelet therapy with aspirin and lipid-lowering therapy with atorvastatin. HYPERTENSION BP this morning 134/76. Monitor blood pressures and titrate therapy. HYPOTHYROIDISM Continue levothyroxine. DEMENTIA Monitor for delirium. VTE PROPHYLAXIS SQ heparin. Ambulate as able. GI PROPHYLAXIS PPI while critically ill. DISPOSITION Anticipated return to [facility]. . Current Inpatient Medications: Current Inpatient Medications Medications (Trade) Dose Ordered Sig/Mak Route Start Time Stop Time Status Last Admin Dose Admin Heparin Sodium (Porcine) (Heparin Sq 5000 Unit/0.5ml) 5,000 unit Q8 SQ 03/12/18 22:00 04/11/18 21:59 03/14/18 05:45 5,000 UNIT Miscellaneous Information (Icu Protocol For Hyperglycemia) 1 ea PRN PRN N/A 03/12/18 17:45 03/14/18 17:44 Levothyroxine Sodium 50 mcg/ Syringe 2.5 ml @ 2 mls/min DAILY@09 IV 03/13/18 09:00 04/12/18 08:59 03/13/18 09:23 2 MLS/MIN Furosemide 40 mg/ Syringe 4 ml @ 4 mls/min DAILY IV 03/13/18 09:00 04/12/18 08:59 Future hold 03/13/18 09:22 4 MLS/MIN Pantoprazole Sodium 40 mg/ Syringe 10 ml @ 5 mls/min DAILY@11 IV 03/13/18 11:00 04/12/18 10:59 03/13/18 09:22 5 MLS/MIN Metoprolol Tartrate (Lopressor Iv) 5 mg Q6 IV. 03/12/18 19:30 04/11/18 19:29 03/14/18 05:37 5 MG Methylprednisolone Sodium Succinate 40 mg/Syringe 0.64 ml @ 1.5 mls/min Q8H IV 03/12/18 20:00 04/11/18 19:59 03/14/18 05:36 1.5 MLS/MIN Aspirin (Aspirin Supp) 300 mg DAILY LA 03/13/18 09:00 04/12/18 08:59 03/13/18 09:22 300 MG Albuterol/ Ipratropium (Duoneb) 3 ml QID PRN INH 03/12/18 21:00 04/11/18 19:59
[2018-03-14 08:31] LABS: CALCIUM 8.9 mg/dl (8.5-10.1); CREATININE 1.13 mg/dl (0.60-1.20); PHOSPHORUS 4.3 mg/dl (2.5-4.9); POTASSIUM 4.4 mmol/L (3.5-5.1); TOTAL PROTEIN 6.7 gm/dl (6.4-8.2)
[2018-03-14] MEDS ORDERED: FUROSEMIDE 40 MG/4 ML VIAL ONE (08:36)
[2018-03-14] MEDS: FUROSEMIDE INJ 40 MG in SYRINGE 0 ML IV SCH (08:38)
[2018-03-14] MEDS: LEVOTHYROXINE SODIUM INJ 50 MCG in SYRINGE 0 ML IV SCH (08:39)
[2018-03-14 09:07] LABS: MEAN CORPUSCULAR HGB CONC 32.5 g/dl (32-36); MEAN PLATELET VOLUME 9.1 fL (7.4-10.4); PLATELET COUNT 241 K/uL (130-400)
[2018-03-14 09:58] LABS: BASO % 0.1 %; BASO ABS # 0.01 K/uL (0-0.2); HEMATOCRIT 39.7 % (37-47); HEMOGLOBIN 12.9 g/dL (12.0-16.0); IG# 0.02 K/uL (0.00-0.02); LYMPH % 8.8 %; MEAN CELL VOLUME 93.6 fL (80-100); MEAN CORPUSCULAR HEMOGLOBIN 30.4 pg (25-34); MONO % 7.5 %; MONO ABS # 0.51 K/uL (0.11-0.59); NEUT % 83.3 %; NEUT ABS # 5.67 K/uL (1.4-6.5); RED CELL DISTRIBUTION WIDTH CV 15.6 % (11.5-14.5); RED CELL DISTRIBUTION WIDTH SD 53.3 fL (36.4-46.3); WHITE BLOOD COUNT 6.81 K/uL (4.8-10.8)
[2018-03-14] MEDS: PANTOprazole INJ 40 MG in SYRINGE 0 ML IV SCH (11:33)
[2018-03-14] MEDS ORDERED: METOPROLOL SUCC 50MG EXT REL TAB PO ONE (14:38)
[2018-03-14] MEDS ORDERED: DILTIAZEM HCL 120 MG EXT REL CAP PO ONE (14:38)
[2018-03-14] MEDS ORDERED: POTA10TA32 PO (14:43)
[2018-03-14] MEDS ORDERED: LEVALBUTEROL 0.63MG/3 ML NEB INH PRN (14:45)
[2018-03-14] MEDS ORDERED: WARFARIN SOD 5 MG TAB PO ONE (15:15)
[2018-03-14] MEDS: LATANOPROST 0.005% OP SOLN 2.5 ML BTL OPB SCH (20:09)
[2018-03-15] VITALS (7 sets, daily range): BP systolic 115–168; BP diastolic 61–84; PULSE 62–87; TEMP 36.4–36.8; O2SAT 91–95
[2018-03-15] MEDS: LEVOTHYROXINE 100 MCG TAB PO SCH (05:56)
[2018-03-15] MEDS: HEPARIN SOD 5000 UNIT/0.5 ML CARP SQ SCH ×3 (06:05→21:46)
[2018-03-15 06:25] LABS: HEMATOCRIT 39.5 % (37-47); HEMOGLOBIN 12.7 g/dL (12.0-16.0); MEAN CORPUSCULAR HEMOGLOBIN 30.5 pg (25-34); MEAN CORPUSCULAR HGB CONC 32.2 g/dl (32-36); MEAN PLATELET VOLUME 8.8 fL (7.4-10.4); PLATELET COUNT 241 K/uL (130-400); RED CELL DISTRIBUTION WIDTH CV 15.8 % (11.5-14.5); RED CELL DISTRIBUTION WIDTH SD 54.6 fL (36.4-46.3); WHITE BLOOD COUNT 8.08 K/uL (4.8-10.8)
[2018-03-15 06:31] LABS: INR 1.1 (0.9-1.1)
[2018-03-15 07:03] LABS: CALCIUM 8.8 mg/dl (8.5-10.1); CREATININE 1.33 mg/dl (0.60-1.20); POTASSIUM 4.1 mmol/L (3.5-5.1)
--- NOTE | 2018-03-15 07:23 | DIAGNOSTIC IMAGING REPORT ---
CHEST ONE VIEW PORTABLE CLINICAL HISTORY: Respiratory failure. COMPARISON STUDY: Chest radiograph March 12, 2018. FINDINGS: Endotracheal tube has been removed. Dual lead left subclavian pacemaker is noted. There is no pneumothorax. Cardiomegaly is unchanged. Mild pleural edema persists although has improved. There are persistent small to moderate bilateral pleural effusions with associated bibasilar opacities. IMPRESSION: 1. Persistent, but slightly improved, pulmonary edema. 2. Persistent small to moderate bilateral pleural effusions with bibasilar opacities which may reflect atelectasis or consolidation. Electronically signed by: Fly Hernandez M.D. 03/15/2018 7:21 AM Dictated Date/Time: 03/15/2018 7:20 AM
[2018-03-15] MEDS: METOPROLOL SUCC 50MG EXT REL TAB PO SCH (08:17)
[2018-03-15] MEDS: DILTIAZEM HCL 120 MG EXT REL CAP PO SCH (08:17)
[2018-03-15] MEDS: ASPIRIN 81 MG ECTAB PO SCH (08:18)
[2018-03-15] MEDS: ATORVASTATIN 40 MG TAB PO SCH (08:18)
[2018-03-15] MEDS: FUROSEMIDE INJ 40 MG in SYRINGE 0 ML IV SCH (08:50)
--- NOTE | 2018-03-15 09:51 | Progress Note ---
Medicine Progress Note Date & Time of Visit: Mar 15, 2018 at 09:30 . Subjective CC: Follow-up visit for respiratory failure and other problems. HPI: No major problems last night, although she preferred not to wear BiPAP. Alert this morning and essentially oriented x 4 (missed the exact date, but oriented to person, place, month, year, circumstances). Discouraged by her declining health and recurrent illnesses. Occasional cough. Denies CP or SOB. ROS: Constitutional- no fever Pulmonary- as noted above in HPI Cardiac- as noted above in HPI GI- no nausea, vomiting, diarrhea - De Oliveira cath . Objective Last 8 Hrs Date Time Temp Pulse Resp B/P (MAP) Pulse Ox O2 Delivery O2 Flow Rate FiO2 03/15/18 07:20 36.5 75 20 153/74 (100) 94 Nasal Cannula 2.0 03/15/18 04:03 36.8 62 20 115/72 (86) 95 Nasal Cannula Physical Exam: General- lying in bed; no apparent distress Lungs- few scattered rhonchi, bibasilar rales, diffuse mild wheezing Cardiovascular- irregular, no murmur or gallop appreciated; difficult to assess neck veins; 1+ pretibial edema Abdomen- + bowel sounds, soft, nontender - De Oliveira cath draining clear urine Extremities- no cyanosis; no calf tenderness; status post amputation right second toe Neuro- alert, essentially oriented x 4 (missed exact date) Skin- warm & dry . Laboratory Results: Last 24 Hours Test 03/14/18 11:40 03/15/18 05:54 Bedside Glucose 128 mg/dl White Blood Count 8.08 K/uL Red Blood Count 4.16 M/uL Hemoglobin 12.7 g/dL Hematocrit 39.5 % Mean Corpuscular Volume 95.0 fL Mean Corpuscular Hemoglobin 30.5 pg Mean Corpuscular Hemoglobin Concent 32.2 g/dl RDW Standard Deviation 54.6 fL RDW Coefficient of Variation 15.8 % Platelet Count 241 K/uL Mean Platelet Volume 8.8 fL Prothrombin Time 12.0 SECONDS Prothromb Time International Ratio 1.1 Sodium Level 136 mmol/L Potassium Level 4.1 mmol/L Chloride Level 91 mmol/L Carbon Dioxide Level 37 mmol/L Anion Gap 8.0 mmol/L Blood Urea Nitrogen 37 mg/dl Creatinine 1.33 mg/dl Est Creatinine Clear Calc Drug Dose 36.1 ml/min Estimated GFR () 42.1 Estimated GFR (Non- 36.4 BUN/Creatinine Ratio 27.7 Random Glucose 126 mg/dl Calcium Level 8.8 mg/dl Assessment & Plan ACUTE ON CHRONIC HYPOXIC AND HYPERCAPNIC RESPIRATORY FAILURE Chronic respiratory failure secondary to underlying obstructive lung disease. Chest x-ray at the time of admission demonstrated bibasilar infiltrates versus congestive heart failure. Afebrile. No white count. [id number] lactate 1.18. Procalcitonin normal. BNP elevated. Worsening respiratory probably secondary to decompensated congestive heart failure rather than pneumonia. Initially required intubation and mechanical ventilation for ventilatory support. Extubated 03/13. ABG's post-intubation demonstrated persistent CO2 retention. Requiring intermittent BiPAP for ventilatory support, although she often prefers not to wear it. Titrate O2 to keep O2 sats high 80's-low 90's. ALTERED MENTAL STATUS No acute intracranial findings on head CT. Probable encephalopathy / delirium secondary to hypoxia and hypercapnia. Improved. COPD/ASTHMA Receiving IV methylprednisolone and bronchodilators. Taper steroids. CHRONIC ATRIAL FIBRILLATION Rate controlled, usually on metoprolol and diltiazem. Has been on warfarin in the past. Patient is a fall risk, but benefits of anticoagulation outweigh risks. Resume warfarin. CHF / PULMONARY EDEMA Echo 11/05/17 demonstrated normal left ventricular systolic function with LVEF 55 -60%. Chronic left ventricular diastolic heart failure. Admission chest x-ray demonstrated suspected pulmonary edema. BNP was elevated. Presented with acute on chronic left ventricular diastolic heart failure. Received IV diuretics with improvement. Increase furosemide to 40 mg IV BID. Watch renal function. CEREBROVASCULAR DISEASE Continue antiplatelet therapy with aspirin and lipid-lowering therapy with atorvastatin. HYPERTENSION BP this morning 153/74. Monitor blood pressures and titrate therapy. HYPOTHYROIDISM Continue levothyroxine. DEMENTIA Monitor for delirium. DEPRESSION Start low dose sertraline. GI PROPHYLAXIS Received PPI while critically ill. VTE PROPHYLAXIS SQ heparin. Ambulate as able. ADVANCED DIRECTIVES / RESUSCITATION STATUS Please refer to RICARDO Pretty's documentation. Code status at this time is full code. DISPOSITION Anticipated return to [facility] when medically stable. . Current Inpatient Medications: Current Inpatient Medications Medications (Trade) Dose Ordered Sig/Mak Route Start Time Stop Time Status Last Admin Dose Admin Heparin Sodium (Porcine) (Heparin Sq 5000 Unit/0.5ml) 5,000 unit Q8 SQ 03/12/18 22:00 04/11/18 21:59 03/15/18 06:05 5,000 UNIT Furosemide 40 mg/ Syringe 4 ml @ 4 mls/min DAILY IV 03/13/18 09:00 04/12/18 08:59 Future hold 03/15/18 08:50 4 MLS/MIN Albuterol/ Ipratropium (Duoneb) 3 ml QID PRN INH 03/12/18 21:00 04/11/18 19:59 Aspirin (Ecotrin Tab) 81 mg DAILY PO 03/15/18 09:00 04/14/18 08:59 03/15/18 08:18 81 MG Atorvastatin Calcium (Lipitor Tab) 40 mg DAILY PO 03/15/18 09:00 04/14/18 08:59 03/15/18 08:18 40 MG Diltiazem HCl (TIAzac CAP) 120 mg DAILY PO 03/15/18 09:00 04/14/18 08:59 03/15/18 08:17 120 MG Latanoprost (Xalatan Oph Soln) 1 drops HS OPB 03/14/18 21:00 04/13/18 20:59 03/14/18 20:09 1 DROPS Levalbuterol (Xopenex 0.63 Mg/ 3 Ml Neb) 0.63 mg Q4H PRN INH 03/14/18 14:45 04/13/18 14:44 Levothyroxine Sodium (Synthroid Tab) 100 mcg DAILYBB PO 03/15/18 06:00 04/14/18 05:59 03/15/18 05:56 100 MCG Metoprolol Succinate (Toprol Xl Tab) 50 mg DAILY PO 03/15/18 09:00 04/14/18 08:59 03/15/18 08:17 50 MG
[2018-03-15] MEDS ORDERED: POTASSIUM CHLORIDE 20 MEQ TABCR PO ONE (11:00)
[2018-03-15] MEDS: METHYLPREDNISOLONE IV 20 MG in SYRINGE 0 ML IV SCH ×2 (14:12→21:44)
[2018-03-15] MEDS ORDERED: FUROSEMIDE INJ 40 MG in SYRINGE 0 ML IV ONE (16:00)
[2018-03-15] MEDS ORDERED: WARFARIN SOD 5 MG TAB PO SCH (16:00)
[2018-03-15] MEDS: LATANOPROST 0.005% OP SOLN 2.5 ML BTL OPB SCH (21:44)
[2018-03-16 03:35] VITALS: BP 153/79; PULSE 80; TEMP 36.6; O2SAT 96
[2018-03-16] MEDS: METHYLPREDNISOLONE IV 20 MG in SYRINGE 0 ML IV SCH ×3 (05:41→20:39)
[2018-03-16] MEDS: LEVOTHYROXINE 100 MCG TAB PO SCH (05:42)
[2018-03-16] MEDS: HEPARIN SOD 5000 UNIT/0.5 ML CARP SQ SCH ×3 (05:44→22:08)
[2018-03-16 06:06] LABS: HEMOGLOBIN 13.6 g/dL (12.0-16.0); MEAN CELL VOLUME 96.1 fL (80-100); MEAN CORPUSCULAR HEMOGLOBIN 31.1 pg (25-34); MEAN CORPUSCULAR HGB CONC 32.4 g/dl (32-36); MEAN PLATELET VOLUME 8.6 fL (7.4-10.4); PLATELET COUNT 237 K/uL (130-400); RED CELL DISTRIBUTION WIDTH CV 15.5 % (11.5-14.5); RED CELL DISTRIBUTION WIDTH SD 54.2 fL (36.4-46.3); WHITE BLOOD COUNT 6.61 K/uL (4.8-10.8)
[2018-03-16 06:39] LABS: ALBUMIN 3.1 gm/dl (3.4-5.0); CALCIUM 8.8 mg/dl (8.5-10.1); CREATININE 1.21 mg/dl (0.60-1.20); POTASSIUM 4.4 mmol/L (3.5-5.1); TOTAL PROTEIN 6.9 gm/dl (6.4-8.2)
--- NOTE | 2018-03-16 06:58 | DIAGNOSTIC IMAGING REPORT ---
CHEST ONE VIEW PORTABLE CLINICAL HISTORY: respiratory failure, CHF COMPARISON STUDY: March 15, 2018 FINDINGS: The heart remains enlarged. There is a left subclavian dual-chamber central venous pacemaker present. There are persistent bilateral pleural effusions with associated basilar airspace opacities likely atelectatic. Mild central bony vascular congestion remains unchanged. Right hilar prominence remains unchanged likely secondary to a prominent pulmonary artery[ IMPRESSION: Stable findings. Persistent bilateral pleural effusions with associated basilar airspace opacities likely atelectatic Electronically signed by: Darius Correa M.D. 03/16/2018 6:57 AM Dictated Date/Time: 03/16/2018 6:56 AM
[2018-03-16 07:32] VITALS: BP 149/90; PULSE 86; TEMP 37.1; O2SAT 95
[2018-03-16] MEDS: METOPROLOL SUCC 50MG EXT REL TAB PO SCH (08:11)
[2018-03-16] MEDS: FUROSEMIDE INJ 40 MG in SYRINGE 0 ML IV SCH (08:11)
[2018-03-16] MEDS: ASPIRIN 81 MG ECTAB PO SCH (08:11)
[2018-03-16] MEDS: DILTIAZEM HCL 120 MG EXT REL CAP PO SCH (08:11)
[2018-03-16] MEDS: ATORVASTATIN 40 MG TAB PO SCH (08:11)
[2018-03-16 11:44] VITALS: BP 127/70; PULSE 65; TEMP 37; O2SAT 96
[2018-03-16 15:43] VITALS: BP 147/80; PULSE 62; TEMP 36.5; O2SAT 92
[2018-03-16] MEDS ORDERED: WARFARIN SOD 2 MG TAB PO STA (16:43)
[2018-03-16 20:00] VITALS: BP 161/82; PULSE 93; TEMP 36.8; O2SAT 91
[2018-03-16] MEDS ORDERED: FUROSEMIDE INJ 40 MG in SYRINGE 0 ML IV ONE (20:00)
[2018-03-16] MEDS: LATANOPROST 0.005% OP SOLN 2.5 ML BTL OPB SCH (20:38)
--- NOTE | 2018-03-16 20:43 | Progress Note ---
Medicine Progress Note Date & Time of Visit: Mar 16, 2018 at 16:50 . Subjective CC: Follow-up visit for respiratory failure and other problems. HPI: Feels better. Still needs assistance with transfers and ambulation. Out of bed in chair. Occasional cough. Denies CP or SOB. ROS: Constitutional- no fever Pulmonary- as noted above in HPI Cardiac- as noted above in HPI GI- no nausea, vomiting, diarrhea - still has Travis cath . Objective Last 8 Hrs Date Time Temp Pulse Resp B/P (MAP) Pulse Ox O2 Delivery O2 Flow Rate FiO2 03/16/18 20:00 36.8 93 20 161/82 (108) 91 Nasal Cannula 3.0 03/16/18 15:43 36.5 62 18 147/80 (102) 92 Nasal Cannula 3.0 Physical Exam: General- sitting in chair; no acute distress Lungs- bibasilar rales, diffuse mild wheezing Cardiovascular- regular, no murmur or gallop appreciated; difficult to assess neck veins; 1+ pretibial edema Abdomen- + bowel sounds, soft, nontender - Travis cath draining clear urine Extremities- no cyanosis; no calf tenderness Neuro- alert Skin- warm & dry . Laboratory Results: Last 24 Hours Test 03/16/18 05:34 White Blood Count 6.61 K/uL Red Blood Count 4.37 M/uL Hemoglobin 13.6 g/dL Hematocrit 42.0 % Mean Corpuscular Volume 96.1 fL Mean Corpuscular Hemoglobin 31.1 pg Mean Corpuscular Hemoglobin Concent 32.4 g/dl RDW Standard Deviation 54.2 fL RDW Coefficient of Variation 15.5 % Platelet Count 237 K/uL Mean Platelet Volume 8.6 fL Sodium Level 139 mmol/L Potassium Level 4.4 mmol/L Chloride Level 94 mmol/L Carbon Dioxide Level 40 mmol/L Anion Gap 5.0 mmol/L Blood Urea Nitrogen 38 mg/dl Creatinine 1.21 mg/dl Est Creatinine Clear Calc Drug Dose 39.8 ml/min Estimated GFR () 47.2 Estimated GFR (Non- 40.8 BUN/Creatinine Ratio 31.2 Random Glucose 142 mg/dl Calcium Level 8.8 mg/dl Magnesium Level 2.2 mg/dl Total Bilirubin 0.5 mg/dl Aspartate Amino Transf (AST/SGOT) 16 U/L Alanine Aminotransferase (ALT/SGPT) 22 U/L Alkaline Phosphatase 72 U/L Total Protein 6.9 gm/dl Albumin 3.1 gm/dl Globulin 3.8 gm/dl Albumin/Globulin Ratio 0.8 Assessment & Plan ACUTE ON CHRONIC HYPOXIC AND HYPERCAPNIC RESPIRATORY FAILURE Chronic respiratory failure secondary to underlying obstructive lung disease. Chest x-ray at the time of admission demonstrated bibasilar infiltrates versus congestive heart failure. Afebrile. No white count. [id number] lactate 1.18. Procalcitonin normal. BNP elevated. Worsening respiratory probably secondary to decompensated congestive heart failure rather than pneumonia. Initially required intubation and mechanical ventilation for ventilatory support. Extubated 03/13. ABG's post-intubation demonstrated persistent CO2 retention. Required intermittent BiPAP for ventilatory support (although she often prefers not to wear it). Titrate O2 to keep O2 sats high 80's-low 90's. ALTERED MENTAL STATUS No acute intracranial findings on head CT. Probable encephalopathy / delirium secondary to hypoxia and hypercapnia. Improved. COPD/ASTHMA Receiving IV methylprednisolone and bronchodilators. Taper steroids. CHRONIC ATRIAL FIBRILLATION Rate controlled, usually on metoprolol and diltiazem. Has been on warfarin in the past. Patient is a fall risk, but benefits of anticoagulation outweigh risks. Resumed warfarin. CHF / PULMONARY EDEMA Echo 11/05/17 demonstrated normal left ventricular systolic function with LVEF 55 -60%. Chronic left ventricular diastolic heart failure. Admission chest x-ray demonstrated suspected pulmonary edema. BNP was elevated. Presented with acute on chronic left ventricular diastolic heart failure. Receiving IV diuretics with improvement. Titrate diuretics. Watch renal function. CEREBROVASCULAR DISEASE Continue antiplatelet therapy with aspirin and lipid-lowering therapy with atorvastatin. HYPERTENSION BP this morning 149/90. Monitor blood pressures and titrate therapy. HYPOTHYROIDISM Continue levothyroxine. DEMENTIA Monitor for delirium. DEPRESSION Started low dose sertraline. GI PROPHYLAXIS Received PPI while critically ill. 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 Discontinue Travis when able. VTE PROPHYLAXIS SQ heparin. Ambulate as able. ADVANCED DIRECTIVES / RESUSCITATION STATUS Palliative Care consulted. Please refer to RICARDO Pretty's documentation. Code status at this time is full code. DISPOSITION Anticipated return to [facility] when medically stable. . Current Inpatient Medications: Current Inpatient Medications Medications (Trade) Dose Ordered Sig/Amk Route Start Time Stop Time Status Last Admin Dose Admin Heparin Sodium (Porcine) (Heparin Sq 5000 Unit/0.5ml) 5,000 unit Q8 SQ 03/12/18 22:00 04/11/18 21:59 03/16/18 13:38 5,000 UNIT Furosemide 40 mg/ Syringe 4 ml @ 4 mls/min DAILY IV 03/13/18 09:00 04/12/18 08:59 Future hold 03/16/18 08:11 4 MLS/MIN Albuterol/ Ipratropium (Duoneb) 3 ml QID PRN INH 03/12/18 21:00 04/11/18 19:59 Aspirin (Ecotrin Tab) 81 mg DAILY PO 03/15/18 09:00 04/14/18 08:59 03/16/18 08:11 81 MG Atorvastatin Calcium (Lipitor Tab) 40 mg DAILY PO 03/15/18 09:00 04/14/18 08:59 03/16/18 08:11 40 MG Diltiazem HCl (TIAzac CAP) 120 mg DAILY PO 03/15/18 09:00 04/14/18 08:59 03/16/18 08:11 120 MG Latanoprost (Xalatan Oph Soln) 1 drops HS OPB 03/14/18 21:00 04/13/18 20:59 03/15/18 21:44 1 DROPS Levalbuterol (Xopenex 0.63 Mg/ 3 Ml Neb) 0.63 mg Q4H PRN INH 03/14/18 14:45 04/13/18 14:44 Levothyroxine Sodium (Synthroid Tab) 100 mcg DAILYBB PO 03/15/18 06:00 04/14/18 05:59 03/16/18 05:42 100 MCG Metoprolol Succinate (Toprol Xl Tab) 50 mg DAILY PO 03/15/18 09:00 04/14/18 08:59 03/16/18 08:11 50 MG Methylprednisolone Sodium Succinate 20 mg/Syringe 0.32 ml @ 1.5 mls/min Q8 IV 03/15/18 14:00 04/14/18 13:59 03/16/18 13:38 1.5 MLS/MIN Warfarin Sodium (Coumadin Tab) 2 mg DAILY@16 PO 03/17/18 16:00 04/16/18 15:59
[2018-03-16 23:49] VITALS: BP 157/88; PULSE 77; TEMP 36.5; O2SAT 93
[2018-03-17 04:14] VITALS: BP 135/74; PULSE 77; TEMP 36.4; O2SAT 96
[2018-03-17] MEDS: LEVOTHYROXINE 100 MCG TAB PO SCH (05:47)
[2018-03-17] MEDS: HEPARIN SOD 5000 UNIT/0.5 ML CARP SQ SCH ×2 (05:49→13:15)
[2018-03-17 06:32] LABS: INR 2.3 (0.9-1.1)
[2018-03-17 06:56] LABS: CREATININE 1.02 mg/dl (0.60-1.20); POTASSIUM 4.1 mmol/L (3.5-5.1)
[2018-03-17 07:40] VITALS: BP 131/69; PULSE 74; TEMP 37.1; O2SAT 95
[2018-03-17] MEDS: FUROSEMIDE INJ 40 MG in SYRINGE 0 ML IV SCH (08:21)
[2018-03-17] MEDS: DILTIAZEM HCL 120 MG EXT REL CAP PO SCH (08:22)
[2018-03-17] MEDS: ATORVASTATIN 40 MG TAB PO SCH (08:22)
[2018-03-17] MEDS: METOPROLOL SUCC 50MG EXT REL TAB PO SCH (08:22)
[2018-03-17] MEDS: ASPIRIN 81 MG ECTAB PO SCH (08:22)
--- NOTE | 2018-03-17 09:22 | Progress Note ---
Medicine Progress Note Date & Time of Visit: Mar 17, 2018 at 09:22. Subjective seen with BENJI Medina at bedside throughout the encounter sitting up in bed, comfortable, watching tv states she feels fine denies pain, shortness of breath orientedx 2 no other symptoms Objective Last 8 Hrs Date Time Temp Pulse Resp B/P (MAP) Pulse Ox O2 Delivery O2 Flow Rate FiO2 03/17/18 08:30 Nasal Cannula 03/17/18 07:40 37.1 74 20 131/69 (89) 95 03/17/18 04:14 36.4 77 20 135/74 (94) 96 Nasal Cannula 2.0 Physical Exam: General-oriented x 3, not in distress, speaks in sentences with no effort Head- atraumatic Eyes- anicteric ENT- oropharynx clear Neck- supple, no JVD Lungs- mild rales at the bases, no wheezing Heart- regular rhythm; no murmur, irregularly irregular rhythm Abdomen- normal bowel sounds, soft, nontender Extremities- grade 1 , no calf tenderness Neuro- alert, oriented x 2; no gross focal deficits Skin- warm & dry Laboratory Results: Last 24 Hours Test 03/17/18 05:48 Prothrombin Time 23.6 SECONDS Prothromb Time International Ratio 2.3 Sodium Level 139 mmol/L Potassium Level 4.1 mmol/L Chloride Level 91 mmol/L Carbon Dioxide Level 43 mmol/L Anion Gap 4.0 mmol/L Blood Urea Nitrogen 34 mg/dl Creatinine 1.02 mg/dl Est Creatinine Clear Calc Drug Dose 47.5 ml/min Estimated GFR () 58.1 Estimated GFR (Non- 50.1 BUN/Creatinine Ratio 33.1 Random Glucose 147 mg/dl Calcium Level 9.0 mg/dl Assessment & Plan ACUTE ON CHRONIC HYPOXIC AND HYPERCAPNIC RESPIRATORY FAILURE Chronic respiratory failure secondary to underlying obstructive lung disease. Worsening respiratory probably secondary to decompensated congestive heart failure Initially required intubation and mechanical ventilation for ventilatory support. Extubated 03/13. ABG's post-intubation demonstrated persistent CO2 retention. Required intermittent BiPAP for ventilatory support (although she often prefers not to wear it). now at 2 liters via [place] management of CHF as noted below CHF / PULMONARY EDEMA Echo 11/05/17 demonstrated normal left ventricular systolic function with LVEF 55 -60%. Chronic left ventricular diastolic heart failure. Admission chest x-ray demonstrated suspected pulmonary edema. BNP was elevated. Presented with acute on chronic left ventricular diastolic heart failure. -- negative fluid balance crea stable still has rales, leg edema continue lasix 40mg IV daily ALTERED MENTAL STATUS No acute intracranial findings on head CT. Probable encephalopathy / delirium secondary to hypoxia and hypercapnia. Improved. COPD/ASTHMA Received IV methylprednisolone and bronchodilators. transitioned to Prednisone 40mg po daily, taper CHRONIC ATRIAL FIBRILLATION Rate controlled, usually on metoprolol and diltiazem. Has been on warfarin in the past. Patient is a fall risk, but benefits of anticoagulation outweigh risks. Resumed warfarin. -- INR 2.3 continue coumadin 2mg po daily CEREBROVASCULAR DISEASE Continue antiplatelet therapy with aspirin and lipid-lowering therapy with atorvastatin. HYPERTENSION BP stable monitor HYPOTHYROIDISM Continue levothyroxine. DEMENTIA Monitor for delirium. DEPRESSION Started low dose sertraline. GI PROPHYLAXIS Received PPI while critically ill. 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 Discontinue Travis when able. VTE PROPHYLAXIS SQ heparin. Ambulate as able. ADVANCED DIRECTIVES / RESUSCITATION STATUS Palliative Care consulted. Please refer to RICARDO Pretty's documentation. Code status at this time is full code. DISPOSITION Anticipated return to [facility] when medically stable. Current Inpatient Medications: Current Inpatient Medications Medications (Trade) Dose Ordered Sig/Mak Route Start Time Stop Time Status Last Admin Dose Admin Heparin Sodium (Porcine) (Heparin Sq 5000 Unit/0.5ml) 5,000 unit Q8 SQ 03/12/18 22:00 04/11/18 21:59 03/17/18 05:49 5,000 UNIT Furosemide 40 mg/ Syringe 4 ml @ 4 mls/min DAILY IV 03/13/18 09:00 04/12/18 08:59 Future hold 03/17/18 08:21 4 MLS/MIN Albuterol/ Ipratropium (Duoneb) 3 ml QID PRN INH 03/12/18 21:00 04/11/18 19:59 Aspirin (Ecotrin Tab) 81 mg DAILY PO 03/15/18 09:00 04/14/18 08:59 03/17/18 08:22 81 MG Atorvastatin Calcium (Lipitor Tab) 40 mg DAILY PO 03/15/18 09:00 04/14/18 08:59 03/17/18 08:22 40 MG Diltiazem HCl (TIAzac CAP) 120 mg DAILY PO 03/15/18 09:00 04/14/18 08:59 03/17/18 08:22 120 MG Latanoprost (Xalatan Oph Soln) 1 drops HS OPB 03/14/18 21:00 04/13/18 20:59 03/16/18 20:38 1 DROPS Levalbuterol (Xopenex 0.63 Mg/ 3 Ml Neb) 0.63 mg Q4H PRN INH 03/14/18 14:45 04/13/18 14:44 Levothyroxine Sodium (Synthroid Tab) 100 mcg DAILYBB PO 03/15/18 06:00 04/14/18 05:59 03/17/18 05:47 100 MCG Metoprolol Succinate (Toprol Xl Tab) 50 mg DAILY PO 03/15/18 09:00 04/14/18 08:59 03/17/18 08:22 50 MG Warfarin Sodium (Coumadin Tab) 2 mg DAILY@16 PO 03/17/18 16:00 04/16/18 15:59 Prednisone (PredniSONE TAB) 40 mg DAILY PO 03/17/18 09:00 04/16/18 08:59 03/17/18 08:21 40 MG
[2018-03-17 10:16] VITALS: BP 131/69; PULSE 74; TEMP 37.1; O2SAT 95
[2018-03-17 10:32] VITALS: BP 134/79; PULSE 71; TEMP 36.6; O2SAT 92
[2018-03-17] MEDS ORDERED: NURSING VERBAL MED ORDER ONE (13:15)
[2018-03-17 15:10] VITALS: BP 155/76; PULSE 73; TEMP 36.7; O2SAT 95
[2018-03-17] MEDS: WARFARIN SOD 2 MG TAB PO SCH (15:40)
--- NOTE | 2018-03-17 18:28 | Progress Note ---
Progress Note Date of Service Mar 17, 2018. Progress Note received message from patient's RN that patient's was requesting for an update, tel no [phone] called the number but there was no one answering will try again Yulissa Mayberry MD
[2018-03-17] MEDS: LATANOPROST 0.005% OP SOLN 2.5 ML BTL OPB SCH (21:44)
[2018-03-17 23:33] VITALS: BP 96/55; PULSE 70; TEMP 36.7; O2SAT 96
[2018-03-18 00:08] VITALS: BP 146/93
[2018-03-18] MEDS: LEVOTHYROXINE 100 MCG TAB PO SCH (05:59)
[2018-03-18 07:04] VITALS: BP 104/56; PULSE 74; TEMP 36.4; O2SAT 96
[2018-03-18 07:34] LABS: INR 2.4 (0.9-1.1)
[2018-03-18] MEDS: METOPROLOL SUCC 50MG EXT REL TAB PO SCH (07:34)
[2018-03-18] MEDS: DILTIAZEM HCL 120 MG EXT REL CAP PO SCH (07:34)
[2018-03-18] MEDS: ATORVASTATIN 40 MG TAB PO SCH (07:34)
[2018-03-18] MEDS: ASPIRIN 81 MG ECTAB PO SCH (07:34)
[2018-03-18 08:00] VITALS: O2SAT 96
[2018-03-18 08:04] LABS: CALCIUM 8.8 mg/dl (8.5-10.1); CREATININE 0.92 mg/dl (0.60-1.20); POTASSIUM 3.8 mmol/L (3.5-5.1)
[2018-03-18] MEDS: FUROSEMIDE INJ 40 MG in SYRINGE 0 ML IV SCH (08:07)
--- NOTE | 2018-03-18 13:55 | Cardiology Consultation ---
Cardiology Consultation Date of Consultation: Mar 18, 2018. Requesting Physician: Dr. Marshall Reason for Consultation: CHF Pt evaluation today including: conversation w/ patient, physical exam, lab review, review of studies, review of inpatient medication list History of Present Illness This is an 87-year-old woman who presented in the latter part of 2009 with neurologic symptoms as well as syncope and was observed to have first degree AV block and left bundle branch block. She had several episodes of syncope before that presentation and it seemed very likely that it was bradycardic induced. She therefore underwent dual-chamber pacemaker implantation on June 09, 2010 with a [employer] Adapta model ADDR L1. She has had no further syncope. She evidently went into atrial fibrillation on September 14, 2017, I do not have the exact dates as she was not treated here at the time but she was probably ill at that time and that may have led to the atrial arrhythmia. Earlier this year she was in a correction facility and was discharged home , her Lasix was discontinued at home and she presented to [facility] in congestive heart failure. She was diuresed, had hypotension and required a short ICU stay. She was then sent to [facility] for rehabilitation. There she developed shortness of breath and was sent to [facility] emergency room for treatment of this. Here she had evidence of CO2 retention, she failed conservative treatment including BiPAP and therefore required intubation and admission November 04, 2017 and was transferred to ICU. She was discharged on November 17, 2017, she then was readmitted December 15, 2017 with pneumonia and remained hospitalized until February 25, 2018. She was discharged to [facility] at that time. She presented again to the hospital on March 12, 2018 with shortness of breath and mental status change, was also found to be hypoxic and had a high CO2 and required intubation. She has improved and is now comfortable in her room. She is conversational but is not a good historian and does not know why she is here. She denies SOB or chest pain. No palpitations. Past Medical/Surgical History (1) Knee Joint Replacement Status (2) Hypertension (3) Cerebrovascular disease (4) Hypothyroidism (5) Dementia (6) COPD (chronic obstructive pulmonary disease) (7) Carotid artery disease (8) Symptomatic bradycardia (9) Atrial fibrillation (10) S/P placement of cardiac pacemaker Family History Cancer Diabetes mellitus Heart disease Social History Smoking Status: Unknown if Ever Smoked Review of Systems Constitutional: No fever, No weight loss, No weakness Respiratory: + shortness of breath Cardiac: + edema Abdomen: No pain, No nausea, No vomiting, No diarrhea, No GI bleeding Female : No problem reported Neurologic: No paralysis, No weakness, No numbness/tingling, No balance problems Heme: No abnormal bleeding/bruising, No clotting problems Endo: No fatigue Skin: No problem reported ROS is probably unreliable due to mental status All Other Systems: Reviewed and Negative Allergies Coded Allergies: Penicillins (Verified Allergy, Unknown, RXN TO AMOXICILLIN, 12/15/17) Adhesives (Verified Adverse Reaction, Mild, RXN TO TAPE, 12/15/17) Medications Current Inpatient Medications Medications (Trade) Dose Ordered Sig/Mak Route Start Time Stop Time Status Last Admin Dose Admin Furosemide 40 mg/ Syringe 4 ml @ 4 mls/min DAILY IV 03/13/18 09:00 04/12/18 08:59 Future hold 03/18/18 08:07 4 MLS/MIN Albuterol/ Ipratropium (Duoneb) 3 ml QID PRN INH 03/12/18 21:00 04/11/18 19:59 Aspirin (Ecotrin Tab) 81 mg DAILY PO 03/15/18 09:00 04/14/18 08:59 03/18/18 07:34 81 MG Atorvastatin Calcium (Lipitor Tab) 40 mg DAILY PO 03/15/18 09:00 04/14/18 08:59 03/18/18 07:34 40 MG Diltiazem HCl (TIAzac CAP) 120 mg DAILY PO 03/15/18 09:00 04/14/18 08:59 03/18/18 07:34 120 MG Latanoprost (Xalatan Oph Soln) 1 drops HS OPB 03/14/18 21:00 04/13/18 20:59 03/17/18 21:44 1 DROPS Levalbuterol (Xopenex 0.63 Mg/ 3 Ml Neb) 0.63 mg Q4H PRN INH 03/14/18 14:45 04/13/18 14:44 Levothyroxine Sodium (Synthroid Tab) 100 mcg DAILYBB PO 03/15/18 06:00 04/14/18 05:59 03/18/18 05:59 100 MCG Metoprolol Succinate (Toprol Xl Tab) 50 mg DAILY PO 03/15/18 09:00 04/14/18 08:59 03/18/18 07:34 50 MG Warfarin Sodium (Coumadin Tab) 2 mg DAILY@16 PO 03/17/18 16:00 04/16/18 15:59 03/17/18 15:40 2 MG Prednisone (PredniSONE TAB) 40 mg DAILY PO 03/17/18 09:00 04/16/18 08:59 03/18/18 07:34 40 MG Physical Exam Vital Signs Past 12 Hours Date Time Temp Pulse Resp B/P (MAP) Pulse Ox O2 Delivery O2 Flow Rate FiO2 03/18/18 08:00 96 Nasal Cannula 2.0 03/18/18 07:04 36.4 74 18 104/56 (72) 96 2.0 03/18/18 00:08 146/93 (110) 03/18/18 00:00 Nasal Cannula 2.5 Constitutional: General Apperance: overweight Level of Distress: NAD Psychiatric: Mental Status: active & alert Head: normocephalic Eyes: EOM: EOMI ENMT: normal ENT inspection, hearing grossly normal Neck: supple, no masses Lungs: Respiratory effort: no dyspnea, good air movement Auscultation: breath sounds normal, no wheezing Cardiovascular: Heart Auscultation: RRR, no murmurs, no rubs, no gallops Peripheral Pulses: Bruits: none appreciated Abdomen: Bowel Sounds: normal Inspection & Palpation: soft, no tenderness, guarding & rebound, no masses Musculoskeletal: normal strength (5/5 throughout) Extremities: no edema Neurologic: Cranial Nerves: grossly intact Sensation: grossly intact Data Laboratory Results: Last 24 Hours Test 03/18/18 06:58 Prothrombin Time 24.5 SECONDS Prothromb Time International Ratio 2.4 Sodium Level 136 mmol/L Potassium Level 3.8 mmol/L Chloride Level 88 mmol/L Carbon Dioxide Level 44 mmol/L Anion Gap 4.0 mmol/L Blood Urea Nitrogen 32 mg/dl Creatinine 0.92 mg/dl Est Creatinine Clear Calc Drug Dose 52.0 ml/min Estimated GFR () 65.8 Estimated GFR (Non- 56.8 BUN/Creatinine Ratio 35.2 Random Glucose 110 mg/dl Calcium Level 8.8 mg/dl Imaging: Chest x-ray suggests congestive heart failure this admission, worse compared to prior EKG: Atrial fibrillation with intermittent ventricular pacing, controlled heart rate Assessment & Plan 1. Respiratory failure: Although she does appear to be in some congestive heart failure it seems unlikely that this was the primary cause of her initial respiratory failure. This is especially so since her chest x-ray does not seem to have changed much and she has improved dramatically. I suspect that was primary pulmonary. 2. Congestive heart failure: I believe she does have some congestive heart failure, her weight has not changed a lot this admission which would be consistent with her x-ray not changing either. I would agree with diuresis and fluid restriction. I am going to repeat an echocardiogram specifically to look for left ventricular function. With atrial fibrillation and right ventricular pacing she could develop a nonischemic cardiomyopathy. 3. Atrial fibrillation: She is in atrial fibrillation and has been now for about 6 months. She is on warfarin now with a therapeutic INR. I would continue this if possible. 4. Pacemaker: We have not evaluated her pacemaker this visit, it seems to be working well probably does not need to be evaluated currently. She is scheduled for April in the office and I am going to keep that visit in place. Thank you for allowing me to participate in her care.
[2018-03-18] MEDS ORDERED: PERFLUTREN LIPID MICROSPHERE (DEFINITY) IV ONE (15:01)
[2018-03-18 15:28] VITALS: BP 136/66; PULSE 79; TEMP 37; O2SAT 91
--- NOTE | 2018-03-18 15:43 | Progress Note ---
Medicine Progress Note Date & Time of Visit: Mar 18, 2018 at 15:37. Subjective seen with BENJI Durant at bedside throughout whole encounter sitting up in bed, watching TV, comfortable states she feel fine overall denies shortness of breath, chest pain, dizziness no bleeding denies other symptoms Objective Last 8 Hrs Date Time Temp Pulse Resp B/P (MAP) Pulse Ox O2 Delivery O2 Flow Rate FiO2 03/18/18 15:28 37.0 79 18 136/66 (89) 91 Nasal Cannula 2.5 03/18/18 08:00 96 Nasal Cannula 2.0 Physical Exam: General-oriented x 3, not in distress, speaks in sentences with no effort Head- atraumatic Eyes- anicteric ENT- oropharynx clear Neck- supple, no JVD Lungs- mild rales at the bases, no wheezing Heart- regular rhythm; no murmur, irregularly irregular rhythm Abdomen- normal bowel sounds, soft, nontender Extremities- grade 1 , no calf tenderness Neuro- alert, oriented x 2; no gross focal deficits Skin- warm & dry Laboratory Results: Last 24 Hours Test 03/18/18 06:58 Prothrombin Time 24.5 SECONDS Prothromb Time International Ratio 2.4 Sodium Level 136 mmol/L Potassium Level 3.8 mmol/L Chloride Level 88 mmol/L Carbon Dioxide Level 44 mmol/L Anion Gap 4.0 mmol/L Blood Urea Nitrogen 32 mg/dl Creatinine 0.92 mg/dl Est Creatinine Clear Calc Drug Dose 52.0 ml/min Estimated GFR () 65.8 Estimated GFR (Non- 56.8 BUN/Creatinine Ratio 35.2 Random Glucose 110 mg/dl Calcium Level 8.8 mg/dl Assessment & Plan ACUTE ON CHRONIC HYPOXIC AND HYPERCAPNIC RESPIRATORY FAILURE Chronic respiratory failure secondary to underlying obstructive lung disease. Worsening respiratory probably secondary to decompensated congestive heart failure Initially required intubation and mechanical ventilation for ventilatory support. Extubated 03/13. ABG's post-intubation demonstrated persistent CO2 retention. Required intermittent BiPAP for ventilatory support (although she often prefers not to wear it). remains at 2 liters via [place] management of CHF as noted below CHF / PULMONARY EDEMA Echo 11/05/17 demonstrated normal left ventricular systolic function with LVEF 55 -60%. Chronic left ventricular diastolic heart failure. Admission chest x-ray demonstrated suspected pulmonary edema. BNP was elevated. Presented with acute on chronic left ventricular diastolic heart failure. -- negative fluid balance crea stable continue lasix 40mg IV daily Cardiology consulted, Echo pending- appreciate the recommendations ALTERED MENTAL STATUS No acute intracranial findings on head CT. Probable encephalopathy / delirium secondary to hypoxia and hypercapnia. Improved. COPD/ASTHMA Received IV methylprednisolone and bronchodilators. transitioned to Prednisone 40mg po daily, taper CHRONIC ATRIAL FIBRILLATION Rate controlled, usually on metoprolol and diltiazem. Has been on warfarin in the past. Patient is a fall risk, but benefits of anticoagulation outweigh risks. Resumed warfarin. -- INR 2.4 continue coumadin 2mg po daily CEREBROVASCULAR DISEASE Continue antiplatelet therapy with aspirin and lipid-lowering therapy with atorvastatin. HYPERTENSION BP stable monitor HYPOTHYROIDISM Continue levothyroxine. DEMENTIA Monitor for delirium. DEPRESSION Started low dose sertraline. GI PROPHYLAXIS Received PPI while critically ill. DE OLIVEIRA CATHETER Still receiving IV diuretics. Discontinue De Oliveira when able. VTE PROPHYLAXIS SQ heparin. Ambulate as able. ADVANCED DIRECTIVES / RESUSCITATION STATUS Palliative Care consulted. Please refer to RICARDO Pretty's documentation. Code status at this time is full code. DISPOSITION Anticipated return to [facility] when medically stable. Current Inpatient Medications: Current Inpatient Medications Medications (Trade) Dose Ordered Sig/Mak Route Start Time Stop Time Status Last Admin Dose Admin Furosemide 40 mg/ Syringe 4 ml @ 4 mls/min DAILY IV 03/13/18 09:00 04/12/18 08:59 Future hold 03/18/18 08:07 4 MLS/MIN Albuterol/ Ipratropium (Duoneb) 3 ml QID PRN INH 03/12/18 21:00 04/11/18 19:59 Aspirin (Ecotrin Tab) 81 mg DAILY PO 03/15/18 09:00 04/14/18 08:59 03/18/18 07:34 81 MG Atorvastatin Calcium (Lipitor Tab) 40 mg DAILY PO 03/15/18 09:00 04/14/18 08:59 03/18/18 07:34 40 MG Diltiazem HCl (TIAzac CAP) 120 mg DAILY PO 03/15/18 09:00 04/14/18 08:59 03/18/18 07:34 120 MG Latanoprost (Xalatan Oph Soln) 1 drops HS OPB 03/14/18 21:00 04/13/18 20:59 03/17/18 21:44 1 DROPS Levalbuterol (Xopenex 0.63 Mg/ 3 Ml Neb) 0.63 mg Q4H PRN INH 03/14/18 14:45 04/13/18 14:44 Levothyroxine Sodium (Synthroid Tab) 100 mcg DAILYBB PO 03/15/18 06:00 04/14/18 05:59 03/18/18 05:59 100 MCG Metoprolol Succinate (Toprol Xl Tab) 50 mg DAILY PO 03/15/18 09:00 04/14/18 08:59 03/18/18 07:34 50 MG Warfarin Sodium (Coumadin Tab) 2 mg DAILY@16 PO 03/17/18 16:00 04/16/18 15:59 03/17/18 15:40 2 MG Prednisone (PredniSONE TAB) 40 mg DAILY PO 03/17/18 09:00 04/16/18 08:59 03/18/18 07:34 40 MG
[2018-03-18] MEDS: WARFARIN SOD 2 MG TAB PO SCH (15:52)
--- NOTE | 2018-03-18 16:54 | ECHOCARDIOGRAM REPORT ---
*NOTICE TO RECEIVING [employer] This information is strictly Confidential and protected under [place] law. [place] law prohibits you from making any further disclosure of this information unless further disclosure is expressly permitted by the written consent of the person to whom it pertains or is authorized by law. A general authorization for the release of medical or other information is not sufficient for this purpose. Hospital accepts no responsibility if the information is made available to any other person, INCLUDING THE PATIENT. Interpretation Summary * Name: ROSLYN RODRIGUEZ Study Date: 03/18/2018 02:50 PM BP: 104/56 mmHg * Patient Location: .[id number]\W253\S\2 HR: 74 * : 1930 (M/d/yy) Gender: Female Height: 65 in * Age: 87 yrs Ethnicity: CA Weight: 217 lb * Ordering Physician: Michael Menard * Referring Physician: Federico [place] * Performed By: Sulema Morin RDCS * * Reason For Study: LV FUNCTION * BSA: 2.0 m2 * -- Conclusions -- * Limited 2D study to assess LV function * 1. Normal LV size. Mild concentric LVH with sigmoid septum. * 2. Normal LV systolic function. LVEF 55-60 %. Abnormal septal motion consistent with conduction abnormality. * 3. RV not well visualized * 4. Dilated IVC, Est RA 15 mmHg. * 5. Mildly dilated ascending aorta (4.1 cm) * 6. Compared with prior study on 11/05/2017: No significant change Procedure Details * The study was technically limited. * Limited views were obtained. * There were technical limitations due to patient'sinability to cooperate * A contrast injection of Definity was performed to improve assessment of LV function. * Contrast was injected into an intravenous site in the left arm. * One vial of Definity ultrasound contrast was diluted in normal saline to a total volume of 10 ml. A total of '3' ml of solution was administered during imaging. * Lot # [id number] of Definity utilized for procedure. * Expiration date 02/12. * The attending nurse who injected the contrast agent was KAREN SNOWDEN RN. Left Ventricle * The left ventricle is grossly normal size. * There is mild concentric left ventricular hypertrophy. * The basal septum is thickened and angulated consistent with sigmoid septum. * Ejection Fraction = 55-60%. * Septal motion is consistent with conduction abnormality. Right Ventricle * The right ventricle is not well visualized. * The right ventricle is grossly normal size. * There is a pacemaker lead in the right ventricle. Atria * The left atrium is not well visualized. * Right atrium not well visualized. Mitral Valve * The mitral valve is grossly normal. * There is borderline mitral valve prolapse. * There is no mitral valve stenosis. Tricuspid Valve * The tricuspid valve is not well visualized. Aortic Valve * Calcified, thickened, restricted. Pulmonic Valve * The pulmonic valve is not well visualized. Great Vessels * Mildly dilated ascending aorta. * Asc Aorta 4.1 cm Pericardium/Pleural * There is no pericardial effusion. * Small left pleural effusion. Great Vessels * Dilated inferior vena cava with reduced collapsability with sniff indicates an elevated right atrial pressure of 15 mmHg MMode 2D Measurements and Calculations IVSd 1.7 cm IVSs 1.7 cm LVIDd 4.0 cm LVIDs 2.8 cm LVPWd 1.1 cm LVPWs 1.6 cm IVS/LVPW 1.5 FS 31.5 % EDV(Teich) 71.4 ml ESV(Teich) 28.6 ml EF(Teich) 60.0 % EDV(cubed) 65.6 ml ESV(cubed) 21.1 ml EF(cubed) 67.9 % % IVS thick 2.9 % % LVPW thick 47.3 % LV mass(C)d 206.0 grams LV mass(C)dI 100.6 grams/m\S\2 LV mass(C)s 170.0 grams LV mass(C)sI 83.0 grams/m\S\2 SV(Teich) 42.8 ml SI(Teich) 20.9 ml/m\S\2 SV(cubed) 44.5 ml SI(cubed) 21.7 ml/m\S\2 asc Aorta Diam 3.6 cm LVAd ap4 27.4 cm\S\2 LVLd ap4 7.5 cm EDV(MOD-sp4) 81.3 ml EDV(sp4-el) 84.6 ml LVAs ap4 16.6 cm\S\2 LVLs ap4 6.3 cm ESV(MOD-sp4) 35.4 ml ESV(sp4-el) 37.1 ml EF(MOD-sp4) 56.5 % EF(sp4-el) 56.1 % LVAd ap2 21.7 cm\S\2 LVLd ap2 7.0 cm EDV(MOD-sp2) 55.3 ml EDV(sp2-el) 56.7 ml LVAs ap2 13.6 cm\S\2 LVLs ap2 6.5 cm ESV(MOD-sp2) 22.8 ml ESV(sp2-el) 24.1 ml EF(MOD-sp2) 58.8 % EF(sp2-el) 57.6 % LVLd %diff -6.97 % EDV(MOD-bp) 68.9 ml LVLs %diff 3.7 % ESV(MOD-bp) 28.7 ml EF(MOD-bp) 58.4 % SV(MOD-sp4) 45.9 ml SI(MOD-sp4) 22.4 ml/m\S\2 SV(MOD-sp2) 32.5 ml SI(MOD-sp2) 15.9 ml/m\S\2 SV(MOD-bp) 40.2 ml SI(MOD-bp) 19.6 ml/m\S\2 SV(sp4-el) 47.4 ml SI(sp4-el) 23.2 ml/m\S\2 SV(sp2-el) 32.7 ml SI(sp2-el) 16.0 ml/m\S\2
[2018-03-18] MEDS: LATANOPROST 0.005% OP SOLN 2.5 ML BTL OPB SCH (21:26)
[2018-03-18 23:23] VITALS: BP 151/67; PULSE 82; TEMP 36.4; O2SAT 97
[2018-03-19] MEDS: LEVOTHYROXINE 100 MCG TAB PO SCH (06:05)
[2018-03-19 07:31] VITALS: BP 166/66; PULSE 67; TEMP 36.5; O2SAT 94
[2018-03-19 07:34] LABS: INR 2.4 (0.9-1.1)
[2018-03-19] MEDS: ATORVASTATIN 40 MG TAB PO SCH (07:37)
[2018-03-19] MEDS: FUROSEMIDE INJ 40 MG in SYRINGE 0 ML IV SCH (07:37)
[2018-03-19] MEDS: ASPIRIN 81 MG ECTAB PO SCH (07:37)
[2018-03-19] MEDS: DILTIAZEM HCL 120 MG EXT REL CAP PO SCH (07:38)
[2018-03-19] MEDS: METOPROLOL SUCC 50MG EXT REL TAB PO SCH (07:38)
[2018-03-19 07:43] LABS: CALCIUM 8.9 mg/dl (8.5-10.1); CREATININE 0.93 mg/dl (0.60-1.20); POTASSIUM 4.2 mmol/L (3.5-5.1)
[2018-03-19 08:00] VITALS: O2SAT 94
--- NOTE | 2018-03-19 09:31 | Progress Note ---
Medicine Progress Note Date & Time of Visit: Mar 19, 2018 at 09:31. Subjective seen with BENJI Durant at bedside patient seen sitting up in bed, with 2 L NC comfortable not in distress seems to be in a better mood today states she feels fine overall no dyspnea, chest pain, nausea, dizziness denies other symptoms Objective Last 8 Hrs Date Time Temp Pulse Resp B/P (MAP) Pulse Ox O2 Delivery O2 Flow Rate FiO2 03/19/18 08:00 94 Nasal Cannula 2.5 03/19/18 07:31 36.5 67 18 166/66 (99) 94 Physical Exam: General-oriented x 3, not in distress, speaks in sentences with no effort Eyes- anicteric Neck- no JVD Lungs- very mild rales at the left base no wheezes Heart- regular rhythm; no murmur, irregularly irregular rhythm Abdomen- normal bowel sounds, soft, nontender Extremities- mild lower leg edema , no calf tenderness Neuro- alert, oriented x 2; no gross focal deficits Skin- warm & dry Laboratory Results: Last 24 Hours Test 03/19/18 06:50 Prothrombin Time 24.8 SECONDS Prothromb Time International Ratio 2.4 Sodium Level 138 mmol/L Potassium Level 4.2 mmol/L Chloride Level 88 mmol/L Carbon Dioxide Level 48 mmol/L Anion Gap 2.0 mmol/L Blood Urea Nitrogen 29 mg/dl Creatinine 0.93 mg/dl Est Creatinine Clear Calc Drug Dose 51.1 ml/min Estimated GFR () 65.0 Estimated GFR (Non- 56.0 BUN/Creatinine Ratio 31.5 Random Glucose 109 mg/dl Calcium Level 8.9 mg/dl Assessment & Plan ACUTE ON CHRONIC HYPOXIC AND HYPERCAPNIC RESPIRATORY FAILURE Chronic respiratory failure secondary to underlying obstructive lung disease. Worsening respiratory probably secondary to decompensated congestive heart failure Initially required intubation and mechanical ventilation for ventilatory support. Extubated 03/13. ABG's post-intubation demonstrated persistent CO2 retention. Required intermittent BiPAP for ventilatory support (although she often prefers not to wear it). remains at 2 liters via NC comfortable management of CHF as noted below CHF / PULMONARY EDEMA Echo 11/05/17 demonstrated normal left ventricular systolic function with LVEF 55 -60%. Chronic left ventricular diastolic heart failure. Admission chest x-ray demonstrated suspected pulmonary edema. BNP was elevated. Presented with acute on chronic left ventricular diastolic heart failure. -- negative fluid balance crea stable continue lasix 40mg IV daily Cardiology consulted, Echo -- Conclusions -- * Limited 2D study to assess LV function * 1. Normal LV size. Mild concentric LVH with sigmoid septum. * 2. Normal LV systolic function. LVEF 55-60 %. Abnormal septal motion consistent with conduction abnormality. * 3. RV not well visualized * 4. Dilated IVC, Est RA 15 mmHg. * 5. Mildly dilated ascending aorta (4.1 cm) * 6. Compared with prior study on 11/05/2017: No significant change -- weight down to 97.4 kg anticipate transition to Lasix 40mg po daily tomorrow monitor -- appreciate Cardio SVC recommendations ALTERED MENTAL STATUS No acute intracranial findings on head CT. Probable encephalopathy / delirium secondary to hypoxia and hypercapnia. Improved. COPD/ASTHMA Received IV methylprednisolone and bronchodilators. transitioned to Prednisone 40mg po daily, taper CHRONIC ATRIAL FIBRILLATION Rate controlled, usually on metoprolol and diltiazem. Has been on warfarin in the past. Patient is a fall risk, but benefits of anticoagulation outweigh risks. Resumed warfarin. -- INR 2.4 continue coumadin 2mg po daily CEREBROVASCULAR DISEASE Continue antiplatelet therapy with aspirin and lipid-lowering therapy with atorvastatin. HYPERTENSION BP stable monitor HYPOTHYROIDISM Continue levothyroxine. DEMENTIA Monitor for delirium. DEPRESSION Started low dose sertraline. GI PROPHYLAXIS Received PPI while critically ill. DE OLIVEIRA CATHETER Still receiving IV diuretics. Discontinue De Oliveira when able. VTE PROPHYLAXIS on Coumadin, INR 2.2 ADVANCED DIRECTIVES / RESUSCITATION STATUS Palliative Care consulted. Please refer to RICARDO Pretty's documentation. Code status at this time is full code. DISPOSITION Anticipated return to [facility] when medically stable , cleared by Cardiology Current Inpatient Medications: Current Inpatient Medications Medications (Trade) Dose Ordered Sig/Mak Route Start Time Stop Time Status Last Admin Dose Admin Furosemide 40 mg/ Syringe 4 ml @ 4 mls/min DAILY IV 03/13/18 09:00 04/12/18 08:59 Future hold 03/19/18 07:37 4 MLS/MIN Albuterol/ Ipratropium (Duoneb) 3 ml QID PRN INH 03/12/18 21:00 04/11/18 19:59 Aspirin (Ecotrin Tab) 81 mg DAILY PO 03/15/18 09:00 04/14/18 08:59 03/19/18 07:37 81 MG Atorvastatin Calcium (Lipitor Tab) 40 mg DAILY PO 03/15/18 09:00 04/14/18 08:59 03/19/18 07:37 40 MG Diltiazem HCl (TIAzac CAP) 120 mg DAILY PO 03/15/18 09:00 04/14/18 08:59 03/19/18 07:38 120 MG Latanoprost (Xalatan Oph Soln) 1 drops HS OPB 03/14/18 21:00 04/13/18 20:59 03/18/18 21:26 1 DROPS Levalbuterol (Xopenex 0.63 Mg/ 3 Ml Neb) 0.63 mg Q4H PRN INH 03/14/18 14:45 04/13/18 14:44 Levothyroxine Sodium (Synthroid Tab) 100 mcg DAILYBB PO 03/15/18 06:00 04/14/18 05:59 03/19/18 06:05 100 MCG Metoprolol Succinate (Toprol Xl Tab) 50 mg DAILY PO 03/15/18 09:00 04/14/18 08:59 03/19/18 07:38 50 MG Warfarin Sodium (Coumadin Tab) 2 mg DAILY@16 PO 03/17/18 16:00 04/16/18 15:59 03/18/18 15:52 2 MG Prednisone (PredniSONE TAB) 40 mg DAILY PO 03/17/18 09:00 04/16/18 08:59 03/19/18 07:37 40 MG
[2018-03-19 15:20] VITALS: BP 144/76; PULSE 77; TEMP 36.5; O2SAT 93
[2018-03-19] MEDS: WARFARIN SOD 2 MG TAB PO SCH (15:53)
--- NOTE | 2018-03-19 16:44 | Cardiology Follow-Up ---
Subjective Date of Service: Mar 19, 2018. Pt evaluation today including: conversation w/ patient, physical exam, lab review, review of studies, review of inpatient medication list History of Present Illness This is an 87-year-old woman who presented in the latter part of 2009 with neurologic symptoms as well as syncope and was observed to have first degree AV block and left bundle branch block. She had several episodes of syncope before that presentation and it seemed very likely that it was bradycardic induced. She therefore underwent dual-chamber pacemaker implantation on June 09, 2010 with a [employer] Adapta model ADDR L1. She has had no further syncope. She evidently went into atrial fibrillation on September 14, 2017, I do not have the exact dates as she was not treated here at the time but she was probably ill at that time and that may have led to the atrial arrhythmia. Earlier this year she was in a jail facility and was discharged home , her Lasix was discontinued at home and she presented to [facility] in congestive heart failure. She was diuresed, had hypotension and required a short ICU stay. She was then sent to [facility] for rehabilitation. There she developed shortness of breath and was sent to the [facility] emergency room for treatment of this. Here she had evidence of CO2 retention, she failed conservative treatment including BiPAP and therefore required intubation and admission November 04, 2017 and was transferred to ICU. She was discharged on November 17, 2017, she then was readmitted December 15, 2017 with pneumonia and remained hospitalized until February 25, 2018. She was discharged to [facility] at that time. She presented again to the hospital on March 12, 2018 with shortness of breath and mental status change, was also found to be hypoxic and had a high CO2 and required intubation. She has improved and is now comfortable in her room. She is conversational but is not a good historian but states that she feels well and is not short of breath. Social History Smoking Status: Unknown if Ever Smoked Review of Systems Respiratory: + shortness of breath Cardiac: + edema ROS is probably unreliable due to mental status Medications Cardiovascular: Item Value Date Time Furosemide 40 mg 03/20/18 0900 (Lasix Tab) QAM/PO Warfarin Sodium 2 mg 03/17/18 1600 (Coumadin Tab) DAILY@16/PO 03/19/18 1553 Aspirin 81 mg 03/15/18 0900 (Ecotrin Tab) DAILY/PO 8/23/18 0737 Atorvastatin 40 mg 03/15/18 0900 Calcium DAILY/PO 03/19/18 0737 (Lipitor Tab) Diltiazem HCl 120 mg 03/15/18 0900 (TIAzac CAP) DAILY/PO 03/19/18 0738 Metoprolol 50 mg 03/15/18 0900 Succinate DAILY/PO 03/19/18 0738 (Toprol Xl Tab) Objective Vital Signs Past 12 Hours Date Time Temp Pulse Resp B/P (MAP) Pulse Ox O2 Delivery O2 Flow Rate FiO2 03/19/18 15:20 36.5 77 18 144/76 (98) 93 Nasal Cannula 3.0 03/19/18 08:00 94 Nasal Cannula 2.5 03/19/18 07:31 36.5 67 18 166/66 (99) 94 Last Recorded Weight-Kilograms: 97.400 Intake & Output 8-Hour Column 03/19/18 03/20/18 03/20/18 16:00 00:00 08:00 Intake Total 240 ml Output Total 1400 ml Balance -1160 ml 24-Hour Column 03/20/18 08:00 Intake Total 240 ml Output Total 1400 ml Balance -1160 ml Physical Exam Constitutional: General Apperance: overweight Level of Distress: NAD Lungs: Respiratory effort: no dyspnea, good air movement Auscultation: breath sounds normal, no wheezing Cardiovascular: Heart Auscultation: RRR, no murmurs, no rubs, no gallops Peripheral Pulses: Bruits: none appreciated Extremities: no edema Data Laboratory Results: Last 24 Hours Test 03/19/18 06:50 Prothrombin Time 24.8 SECONDS Prothromb Time International Ratio 2.4 Sodium Level 138 mmol/L Potassium Level 4.2 mmol/L Chloride Level 88 mmol/L Carbon Dioxide Level 48 mmol/L Anion Gap 2.0 mmol/L Blood Urea Nitrogen 29 mg/dl Creatinine 0.93 mg/dl Est Creatinine Clear Calc Drug Dose 51.1 ml/min Estimated GFR () 65.0 Estimated GFR (Non- 56.0 BUN/Creatinine Ratio 31.5 Random Glucose 109 mg/dl Calcium Level 8.9 mg/dl Imaging: Her echocardiogram shows essentially normal left ventricular function Assessment and Plan 1. Respiratory failure: Although she does appear to be in some congestive heart failure it seems unlikely that this was the primary cause of her initial respiratory failure. This is especially so since her chest x-ray does not seem to have changed much and she has improved dramatically. I suspect that was primary pulmonary. 2. Congestive heart failure: I believe she does have some congestive heart failure, her weight has dropped somewhat over the last several days. Her CO2 has been increasing although her creatinine has not. I placed her on a fluid restriction yesterday. She probably does not need a lot more diuresis. 3. Atrial fibrillation: She is in atrial fibrillation and has been now for about 6 months. She is on warfarin now with a therapeutic INR. I would continue this if possible. 4. Pacemaker: We have not evaluated her pacemaker this visit, it seems to be working well probably does not need to be evaluated currently. She is scheduled for April in the office and I am going to keep that visit in place. Thank you for allowing me to participate in her care.
[2018-03-19] MEDS: LATANOPROST 0.005% OP SOLN 2.5 ML BTL OPB SCH (21:05)
[2018-03-19] MEDS ORDERED: ACETAMINOPHEN 325 MG TAB PO PRN (21:45)
[2018-03-19] MEDS ORDERED: MICONAZOLE NITRATE POWDER 43 GM EXT PRN (22:45)
[2018-03-19 23:33] VITALS: BP 146/92; PULSE 85; TEMP 36.5; O2SAT 96
[2018-03-20] MEDS: LEVOTHYROXINE 100 MCG TAB PO SCH (06:43)
[2018-03-20 07:02] VITALS: BP 127/89; PULSE 68; TEMP 36.4; O2SAT 88
[2018-03-20 07:59] VITALS: O2SAT 97
[2018-03-20] MEDS: DILTIAZEM HCL 120 MG EXT REL CAP PO SCH (08:00)
[2018-03-20] MEDS: METOPROLOL SUCC 50MG EXT REL TAB PO SCH (08:00)
[2018-03-20] MEDS: ATORVASTATIN 40 MG TAB PO SCH (08:00)
[2018-03-20] MEDS: ASPIRIN 81 MG ECTAB PO SCH (08:01)
[2018-03-20 08:15] LABS: INR 3.3 (0.9-1.1)
[2018-03-20 08:21] LABS: CALCIUM 8.9 mg/dl (8.5-10.1); CREATININE 0.89 mg/dl (0.60-1.20); POTASSIUM 4.2 mmol/L (3.5-5.1)
[2018-03-20] MEDS ORDERED: FUROSEMIDE 40 MG TAB PO SCH (09:00)
[2018-03-20] MEDS: WARFARIN SOD 2 MG TAB PO SCH (09:11)
[2018-03-20] MEDS ORDERED: NURSING VERBAL MED ORDER ONE (09:15)
[2018-03-20 14:34] VITALS: BP 122/72; PULSE 66; TEMP 36.7; O2SAT 95
[2018-03-20 17:52] VITALS: O2SAT 92
[2018-03-20] MEDS: LATANOPROST 0.005% OP SOLN 2.5 ML BTL OPB SCH (21:31)
[2018-03-20 21:49] VITALS: PULSE 80; O2SAT 99
--- NOTE | 2018-03-20 22:53 | Progress Note ---
Medicine Progress Note Date & Time of Visit: Mar 20, 2018 at 22:46. Subjective seen resting in bedside chair, with PILOT FUEL ENGINEER at throughout all encounter states she feels fine overall oriented x 2,not in distress, comfortable, watching TV denies dyspnea, chest pain, dizziness no new complaints Objective Last 8 Hrs Date Time Temp Pulse Resp B/P (MAP) Pulse Ox O2 Delivery O2 Flow Rate FiO2 03/20/18 21:49 80 16 99 Nasal Cannula 2.0 03/20/18 17:52 92 Nasal Cannula 2.0 03/20/18 16:00 Nasal Cannula 2.0 Physical Exam: General-oriented x 3, not in distress, speaks in sentences with no effort Eyes- anicteric Neck- no JVD Lungs- faint rales at the left base no wheezing Heart- regular rhythm; no murmur, irregularly irregular rhythm Abdomen- normal bowel sounds, soft, nontender Extremities- mild lower leg edema , no calf tenderness Neuro- alert, oriented x 2; no gross focal deficits Skin- warm & dry Laboratory Results: Last 24 Hours Test 03/20/18 07:04 Prothrombin Time 33.5 SECONDS Prothromb Time International Ratio 3.3 Sodium Level 138 mmol/L Potassium Level 4.2 mmol/L Chloride Level 89 mmol/L Carbon Dioxide Level 46 mmol/L Anion Gap 3.0 mmol/L Blood Urea Nitrogen 25 mg/dl Creatinine 0.89 mg/dl Est Creatinine Clear Calc Drug Dose 53.6 ml/min Estimated GFR () 68.5 Estimated GFR (Non- 59.1 BUN/Creatinine Ratio 27.7 Random Glucose 107 mg/dl Calcium Level 8.9 mg/dl Chemistry Specimen Hemolysis Assessment & Plan ACUTE ON CHRONIC HYPOXIC AND HYPERCAPNIC RESPIRATORY FAILURE Chronic respiratory failure secondary to underlying obstructive lung disease. Worsening respiratory probably secondary to decompensated congestive heart failure Initially required intubation and mechanical ventilation for ventilatory support. Extubated 03/13. ABG's post-intubation demonstrated persistent CO2 retention. Required intermittent BiPAP for ventilatory support (although she often prefers not to wear it). remains at 2 liters via NC comfortable management of CHF as noted below CHF / PULMONARY EDEMA Echo 11/05/17 demonstrated normal left ventricular systolic function with LVEF 55 -60%. Chronic left ventricular diastolic heart failure. Admission chest x-ray demonstrated suspected pulmonary edema. BNP was elevated. Presented with acute on chronic left ventricular diastolic heart failure. Cardiology consulted, Echo -- Conclusions -- * Limited 2D study to assess LV function * 1. Normal LV size. Mild concentric LVH with sigmoid septum. * 2. Normal LV systolic function. LVEF 55-60 %. Abnormal septal motion consistent with conduction abnormality. * 3. RV not well visualized * 4. Dilated IVC, Est RA 15 mmHg. * 5. Mildly dilated ascending aorta (4.1 cm) * 6. Compared with prior study on 11/05/2017: No significant change -- diuresed well with IV Lasix HCO3 trended up, still elevated at 46 crea stable hold Lasix for now monitor HCO3, discharge when in the mid 30s -- monitor volume status closely off Lasix -- discussed with Cardioly SVC ALTERED MENTAL STATUS No acute intracranial findings on head CT. Probable encephalopathy / delirium secondary to hypoxia and hypercapnia. Improved. COPD/ASTHMA Received IV methylprednisolone and bronchodilators. transitioned to Prednisone taper CHRONIC ATRIAL FIBRILLATION Rate controlled, usually on metoprolol and diltiazem. Has been on warfarin in the past. Patient is a fall risk, but benefits of anticoagulation outweigh risks. Resumed warfarin. -- INR 3.2 hold coumadin CEREBROVASCULAR DISEASE Continue antiplatelet therapy with aspirin and lipid-lowering therapy with atorvastatin. HYPERTENSION BP stable monitor HYPOTHYROIDISM Continue levothyroxine. DEMENTIA Monitor for delirium. DEPRESSION Started low dose sertraline. GI PROPHYLAXIS Received PPI while critically ill. TRAVIS CATHETER d/c travis VTE PROPHYLAXIS INR 3.2 hold coumadin ADVANCED DIRECTIVES / RESUSCITATION STATUS Palliative Care consulted. Please refer to RICARDO Pretty's documentation. Code status at this time is full code. DISPOSITION Anticipated return to [facility] when medically stable , cleared by Cardiology informed by RN that patient's Mr Huggins was requesting for update noted to be using inappropriate language towards staff and was being belligerent security summoned when i arrived at the RN station at around 6pm, Mr. Huggins has left R Shawanda JONES Current Inpatient Medications: Current Inpatient Medications Medications (Trade) Dose Ordered Sig/Mak Route Start Time Stop Time Status Last Admin Dose Admin Albuterol/ Ipratropium (Duoneb) 3 ml QID PRN INH 03/12/18 21:00 04/11/18 19:59 Aspirin (Ecotrin Tab) 81 mg DAILY PO 03/15/18 09:00 04/14/18 08:59 03/20/18 08:01 81 MG Atorvastatin Calcium (Lipitor Tab) 40 mg DAILY PO 03/15/18 09:00 04/14/18 08:59 03/20/18 08:00 40 MG Diltiazem HCl (TIAzac CAP) 120 mg DAILY PO 03/15/18 09:00 04/14/18 08:59 03/20/18 08:00 120 MG Latanoprost (Xalatan Oph Soln) 1 drops HS OPB 03/14/18 21:00 04/13/18 20:59 03/20/18 21:31 1 DROPS Levalbuterol (Xopenex 0.63 Mg/ 3 Ml Neb) 0.63 mg Q4H PRN INH 03/14/18 14:45 04/13/18 14:44 03/20/18 21:49 0.63 MG Levothyroxine Sodium (Synthroid Tab) 100 mcg DAILYBB PO 03/15/18 06:00 04/14/18 05:59 03/20/18 06:43 100 MCG Metoprolol Succinate (Toprol Xl Tab) 50 mg DAILY PO 03/15/18 09:00 04/14/18 08:59 03/20/18 08:00 50 MG Warfarin Sodium (Coumadin Tab) 2 mg DAILY@16 PO 03/17/18 16:00 04/16/18 15:59 03/19/18 15:53 2 MG Prednisone (PredniSONE TAB) 30 mg DAILY PO 03/20/18 09:00 04/16/18 08:59 03/20/18 08:00 30 MG Acetaminophen (Tylenol Tab) 650 mg Q6 PRN PO 03/19/18 21:45 04/18/18 21:44 Miconazole Nitrate (Desenex Powder) 1 appln PRN PRN EXT 03/19/18 22:45 04/18/18 22:44
[2018-03-20 23:31] VITALS: BP 147/75; PULSE 74; TEMP 36.5; O2SAT 96
[2018-03-21] MEDS: LEVOTHYROXINE 100 MCG TAB PO SCH (06:19)
[2018-03-21 07:15] VITALS: BP 163/88; PULSE 64; TEMP 36.3; O2SAT 94
[2018-03-21 08:52] LABS: INR 3.5 (0.9-1.1)
[2018-03-21] MEDS: DILTIAZEM HCL 120 MG EXT REL CAP PO SCH (09:05)
[2018-03-21] MEDS: METOPROLOL SUCC 50MG EXT REL TAB PO SCH (09:05)
[2018-03-21] MEDS: ASPIRIN 81 MG ECTAB PO SCH (09:05)
[2018-03-21] MEDS: ATORVASTATIN 40 MG TAB PO SCH (09:05)
[2018-03-21 09:22] LABS: CREATININE 0.86 mg/dl (0.60-1.20); POTASSIUM 4.3 mmol/L (3.5-5.1)
--- NOTE | 2018-03-21 09:52 | Progress Note ---
Medicine Progress Note Date & Time of Visit: Mar 21, 2018 at 09:46. Subjective seen resting in bedside chair comfortable, watching tv states she feels ok no shortness of breath, cough no other symptoms Objective Last 8 Hrs Date Time Temp Pulse Resp B/P (MAP) Pulse Ox O2 Delivery O2 Flow Rate FiO2 03/21/18 07:15 36.3 64 16 163/88 (113) 94 2.0 Physical Exam: General-oriented x 3, not in distress, speaks in sentences with no effort Eyes- anicteric Neck- no JVD Lungs- clear breath sounds bilaterally no rales/wheezing Heart- regular rhythm; no murmur, irregularly irregular rhythm Abdomen- normal bowel sounds, soft, nontender Extremities- mild lower leg edema , no calf tenderness Neuro- alert, oriented x 2; no gross focal deficits Skin- warm & dry Laboratory Results: Last 24 Hours Test 03/21/18 08:20 Prothrombin Time 35.9 SECONDS Prothromb Time International Ratio 3.5 Sodium Level 138 mmol/L Potassium Level 4.3 mmol/L Chloride Level 89 mmol/L Carbon Dioxide Level 42 mmol/L Anion Gap 7.0 mmol/L Blood Urea Nitrogen 24 mg/dl Creatinine 0.86 mg/dl Est Creatinine Clear Calc Drug Dose 55.6 ml/min Estimated GFR () 71.4 Estimated GFR (Non- 61.6 BUN/Creatinine Ratio 27.8 Random Glucose 142 mg/dl Calcium Level 9.0 mg/dl Chemistry Specimen Hemolysis Assessment & Plan ACUTE ON CHRONIC HYPOXIC AND HYPERCAPNIC RESPIRATORY FAILURE Chronic respiratory failure secondary to underlying obstructive lung disease. Worsening respiratory probably secondary to decompensated congestive heart failure Initially required intubation and mechanical ventilation for ventilatory support. Extubated 03/13. ABG's post-intubation demonstrated persistent CO2 retention. Required intermittent BiPAP for ventilatory support (although she often prefers not to wear it). remains at 2 liters via NC, comfortable management of CHF as noted below CHF / PULMONARY EDEMA Echo 11/05/17 demonstrated normal left ventricular systolic function with LVEF 55 -60%. Chronic left ventricular diastolic heart failure. Admission chest x-ray demonstrated suspected pulmonary edema. BNP was elevated. Presented with acute on chronic left ventricular diastolic heart failure. Cardiology consulted, Echo -- Conclusions -- * Limited 2D study to assess LV function * 1. Normal LV size. Mild concentric LVH with sigmoid septum. * 2. Normal LV systolic function. LVEF 55-60 %. Abnormal septal motion consistent with conduction abnormality. * 3. RV not well visualized * 4. Dilated IVC, Est RA 15 mmHg. * 5. Mildly dilated ascending aorta (4.1 cm) * 6. Compared with prior study on 11/05/2017: No significant change -- diuresed well with IV Lasix - at least negative 10 liters fluid balance weight down from 103 to 98 HCO3 trended up, elevated at 46---> lasix held --> HC03 crea stable hold Lasix for now ,monitor volume status closely off Lasix monitor HCO3, discharge when in the mid 30s -- Cardiology consulted ALTERED MENTAL STATUS No acute intracranial findings on head CT. Probable encephalopathy / delirium secondary to hypoxia and hypercapnia. Improved. COPD/ASTHMA Received IV methylprednisolone and bronchodilators. transitioned to Prednisone taper, now at 30mg po daily, transition to 20mg po tomorrow, then taper CHRONIC ATRIAL FIBRILLATION Rate controlled, usually on metoprolol and diltiazem. Has been on warfarin in the past. Patient is a fall risk, but benefits of anticoagulation outweigh risks. Resumed warfarin. -- INR 3.5 hold coumadin may need 2mg every other day INR daily CEREBROVASCULAR DISEASE Continue antiplatelet therapy with aspirin and lipid-lowering therapy with atorvastatin. HYPERTENSION BP stable monitor HYPOTHYROIDISM Continue levothyroxine. DEMENTIA Monitor for delirium. DEPRESSION Started low dose sertraline. mood seems to be improving GI PROPHYLAXIS Received PPI while critically ill. [facility] [employer] d/c dunham when able VTE PROPHYLAXIS INR 3.5 hold coumadin ADVANCED DIRECTIVES / RESUSCITATION STATUS Palliative Care consulted. Please refer to RICARDO Pretty's documentation. Code status at this time is full code. DISPOSITION Anticipated return to [facility] when medically stable , cleared by Cardiology Current Inpatient Medications: Current Inpatient Medications Medications (Trade) Dose Ordered Sig/Mak Route Start Time Stop Time Status Last Admin Dose Admin Albuterol/ Ipratropium (Duoneb) 3 ml QID PRN INH 03/12/18 21:00 04/11/18 19:59 Aspirin (Ecotrin Tab) 81 mg DAILY PO 03/15/18 09:00 04/14/18 08:59 03/21/18 09:05 81 MG Atorvastatin Calcium (Lipitor Tab) 40 mg DAILY PO 03/15/18 09:00 04/14/18 08:59 03/21/18 09:05 40 MG Diltiazem HCl (TIAzac CAP) 120 mg DAILY PO 03/15/18 09:00 04/14/18 08:59 03/21/18 09:05 120 MG Latanoprost (Xalatan Oph Soln) 1 drops HS OPB 03/14/18 21:00 04/13/18 20:59 03/20/18 21:31 1 DROPS Levalbuterol (Xopenex 0.63 Mg/ 3 Ml Neb) 0.63 mg Q4H PRN INH 03/14/18 14:45 04/13/18 14:44 03/20/18 21:49 0.63 MG Levothyroxine Sodium (Synthroid Tab) 100 mcg DAILYBB PO 03/15/18 06:00 04/14/18 05:59 03/21/18 06:19 100 MCG Metoprolol Succinate (Toprol Xl Tab) 50 mg DAILY PO 03/15/18 09:00 04/14/18 08:59 03/21/18 09:05 50 MG Prednisone (PredniSONE TAB) 30 mg DAILY PO 03/20/18 09:00 04/16/18 08:59 03/21/18 09:05 30 MG Acetaminophen (Tylenol Tab) 650 mg Q6 PRN PO 03/19/18 21:45 04/18/18 21:44 Miconazole Nitrate (Desenex Powder) 1 appln PRN PRN EXT 03/19/18 22:45 04/18/18 22:44
[2018-03-21 15:15] VITALS: BP 140/83; PULSE 68; TEMP 36.7; O2SAT 97
--- NOTE | 2018-03-21 19:26 | Progress Note ---
Progress Note Date of Service Mar 21, 2018. Progress Note informed by RN re: patient's requesting update talked to patient's Mr Huggins at bedside, with RN throughout whole encounter introduced myself and extended my hand to shake his hand, but he said "I do not want to shake your hand." he appeared upset, and was speaking in an angry tone he was voicing that patient should not be on oxygen supplement,that she should be brought outside "for fresh air", that she should be home instead of SNF, various concerns/frustration about previous hospitalizations, stays at SNF, about his physical ailments, his own experiences with providers, etc. explained need for patient to have supplemental o2 at this time updated on overall plan of care spent about 30mins with Mr Huggins he thanked me after the discussion, and he was comfortable and agreeable with plan of care Yulissa Mayberry MD
[2018-03-21] MEDS: LATANOPROST 0.005% OP SOLN 2.5 ML BTL OPB SCH (21:28)
[2018-03-21 22:51] VITALS: BP 159/87; PULSE 73; TEMP 36.5; O2SAT 98
[2018-03-22] MEDS: LEVOTHYROXINE 100 MCG TAB PO SCH (05:36)
[2018-03-22 07:25] VITALS: BP 165/82; PULSE 95; TEMP 36.5; O2SAT 98
[2018-03-22] MEDS ORDERED: IBUPROFEN 200 MG TAB PO STA (07:32)
[2018-03-22 08:10] LABS: INR 2.7 (0.9-1.1)
[2018-03-22 08:34] LABS: CALCIUM 8.9 mg/dl (8.5-10.1); CREATININE 0.75 mg/dl (0.60-1.20)
[2018-03-22] MEDS: DILTIAZEM HCL 120 MG EXT REL CAP PO SCH (08:38)
[2018-03-22] MEDS: ASPIRIN 81 MG ECTAB PO SCH (08:39)
[2018-03-22] MEDS: METOPROLOL SUCC 50MG EXT REL TAB PO SCH (08:39)
[2018-03-22] MEDS: ATORVASTATIN 40 MG TAB PO SCH (08:39)
[2018-03-22] MEDS: NYSTATIN SUSP 500,000 U/5 ML UDC PO SCH ×3 (13:00→21:00)
[2018-03-22 15:07] VITALS: BP 93/57; PULSE 76; TEMP 36.7; O2SAT 93
[2018-03-22 15:33] VITALS: BP 124/68
--- NOTE | 2018-03-22 16:03 | Progress Note ---
Subjective Date of Service: Mar 22, 2018. Subjective Pt evaluation today including: conversation w/ patient, physical exam, lab review, review of studies, review of inpatient medication list Saw/examined the patient in room 253 Not very talkative, but tells me she seems to be doing okay Denies shortness of breath as per nursing, her L arm is more swollen today Patient denies any pain of LUE Problem List Medical Problems: (1) Altered mental status Status: Acute (2) Altered mental status Status: Acute (3) Atrial fibrillation Status: Acute (4) Change in mental status Status: Acute (5) CO2 retention Status: Acute (6) Encephalopathy Status: Acute (7) Exacerbation of asthma Status: Acute (8) Respiratory distress Status: Acute (9) UTI (urinary tract infection) Status: Acute Review of Systems Respiratory: No cough, No sputum, No shortness of breath Cardiac: No chest pain Musculoskeletal: No joint pain Medications Current Inpatient Medications Medications (Trade) Dose Ordered Sig/Mak Route Start Time Stop Time Status Last Admin Dose Admin Albuterol/ Ipratropium (Duoneb) 3 ml QID PRN INH 03/12/18 21:00 04/11/18 19:59 Aspirin (Ecotrin Tab) 81 mg DAILY PO 03/15/18 09:00 04/14/18 08:59 03/22/18 08:39 81 MG Atorvastatin Calcium (Lipitor Tab) 40 mg DAILY PO 03/15/18 09:00 04/14/18 08:59 03/22/18 08:39 40 MG Diltiazem HCl (TIAzac CAP) 120 mg DAILY PO 03/15/18 09:00 04/14/18 08:59 03/22/18 08:38 120 MG Latanoprost (Xalatan Oph Soln) 1 drops HS OPB 03/14/18 21:00 04/13/18 20:59 03/21/18 21:28 1 DROPS Levalbuterol (Xopenex 0.63 Mg/ 3 Ml Neb) 0.63 mg Q4H PRN INH 03/14/18 14:45 04/13/18 14:44 03/20/18 21:49 0.63 MG Levothyroxine Sodium (Synthroid Tab) 100 mcg DAILYBB PO 03/15/18 06:00 04/14/18 05:59 03/22/18 05:36 100 MCG Metoprolol Succinate (Toprol Xl Tab) 50 mg DAILY PO 03/15/18 09:00 04/14/18 08:59 03/22/18 08:39 50 MG Prednisone (PredniSONE TAB) 30 mg DAILY PO 03/20/18 09:00 04/16/18 08:59 03/22/18 08:39 30 MG Acetaminophen (Tylenol Tab) 650 mg Q6 PRN PO 03/19/18 21:45 04/18/18 21:44 Miconazole Nitrate (Desenex Powder) 1 appln PRN PRN EXT 03/19/18 22:45 04/18/18 22:44 Nystatin (Mycostatin Susp) 5 ml QID PO 03/22/18 13:00 04/01/18 12:59 Objective Vital Signs Date Time Temp Pulse Resp B/P (MAP) Pulse Ox O2 Delivery O2 Flow Rate FiO2 03/22/18 15:33 124/68 (86) 03/22/18 15:07 36.7 76 21 93/57 (69) 93 Nasal Cannula 2.0 03/22/18 08:00 Nasal Cannula 2.0 03/22/18 07:25 36.5 95 20 165/82 (109) 98 Nasal Cannula 2.0 03/21/18 22:51 36.5 73 18 159/87 (111) 98 Nasal Cannula 2.5 03/21/18 22:00 Nasal Cannula 2.0 03/21/18 16:00 Nasal Cannula 2.0 Physical Exam General Appearance: no apparent distress, + obese Extremities: + swelling (LUE), + pertinent finding (+1 pitting edema b/l LE) Laboratory Results Last 24 Hours Test 03/22/18 07:26 Prothrombin Time 28.3 SECONDS Prothromb Time International Ratio 2.7 Sodium Level 139 mmol/L Potassium Level 4.0 mmol/L Chloride Level 91 mmol/L Carbon Dioxide Level 46 mmol/L Anion Gap 2.0 mmol/L Blood Urea Nitrogen 21 mg/dl Creatinine 0.75 mg/dl Est Creatinine Clear Calc Drug Dose 63.6 ml/min Estimated GFR () 84.2 Estimated GFR (Non- 72.7 BUN/Creatinine Ratio 27.9 Random Glucose 99 mg/dl Calcium Level 8.9 mg/dl Assessment and Plan This is an 87 year old female with a past medical history of COPD, chronic CO2 retention, paroxysmal atrial fibrillation, chronic diastolic CHF, hx. of CVA, HTN, hypothyroidism, underlying dementia - presents with acute respiratory failure Acute on Chronic Hypoxic/Hypercapnic Respiratory Failure Acute COPD Exacerbation - patient with underlying chronic respiratory failure, likely from COPD and CHF - Initially required intubation and mechanical ventilation for ventilatory support - was extubated on 03/13 - patient with CO2 retention chronically - monitor and should be using bipap for support - continue oxygen support - continue nebs and prednisone Acute on Chronic Diastolic CHF Pulmonary Edema - normal LVEF noted on echo - initially had pulmonary edema - requiring IV Lasix - has had 10 L output - holding Lasix now; due to elevated CO2 - monitor for fluid retention Delirium on Dementia - patient seems to be back to baseline - possible CO2 Narcosis Chronic Atrial Fibrillation - continue metoprolol and Cardizem - currently rate is controlled - Warfarin is resumed during this admission - will likely need 1mg and 2mg alternating Hx. of CVA - continue aspirin/statin HTN - continue home medications Hypothyroidism - continue Synthroid Depression - continue SSRI GI ppx - continue PPI DVT ppx - continue Coumadin; INR goal of 2-3 FULL CODE - for now; palliative care consulted
[2018-03-22] MEDS ORDERED: NURSING VERBAL MED ORDER ONE (16:15)
[2018-03-22] MEDS ORDERED: WARFARIN SOD 1 MG TAB PO ONE (17:00)
[2018-03-22] MEDS: LATANOPROST 0.005% OP SOLN 2.5 ML BTL OPB SCH (21:52)
[2018-03-22 22:39] VITALS: BP 151/73; PULSE 83; TEMP 36.5; O2SAT 95
[2018-03-23] MEDS: LEVOTHYROXINE 100 MCG TAB PO SCH (06:23)
[2018-03-23 07:09] LABS: HEMATOCRIT 42.4 % (37-47); MEAN CELL VOLUME 96.8 fL (80-100); MEAN CORPUSCULAR HEMOGLOBIN 29.7 pg (25-34); MEAN CORPUSCULAR HGB CONC 30.7 g/dl (32-36); MEAN PLATELET VOLUME 9.2 fL (7.4-10.4); PLATELET COUNT 213 K/uL (130-400); RED CELL DISTRIBUTION WIDTH CV 14.9 % (11.5-14.5); RED CELL DISTRIBUTION WIDTH SD 53.5 fL (36.4-46.3); WHITE BLOOD COUNT 11.42 K/uL (4.8-10.8)
[2018-03-23 07:21] VITALS: BP 132/73; PULSE 76; TEMP 36.7; O2SAT 92
[2018-03-23 07:24] LABS: INR 2.7 (0.9-1.1)
[2018-03-23] MEDS: DILTIAZEM HCL 120 MG EXT REL CAP PO SCH (07:44)
[2018-03-23] MEDS: ATORVASTATIN 40 MG TAB PO SCH (07:44)
[2018-03-23] MEDS: NYSTATIN SUSP 500,000 U/5 ML UDC PO SCH ×4 (07:44→21:00)
[2018-03-23] MEDS: METOPROLOL SUCC 50MG EXT REL TAB PO SCH (07:44)
[2018-03-23] MEDS: ASPIRIN 81 MG ECTAB PO SCH (07:45)
[2018-03-23 07:46] LABS: CALCIUM 8.3 mg/dl (8.5-10.1); CREATININE 0.86 mg/dl (0.60-1.20)
[2018-03-23 08:00] VITALS: O2SAT 92
--- NOTE | 2018-03-23 08:51 | Progress Note ---
Subjective Date of Service: Mar 23, 2018. Subjective Pt evaluation today including: conversation w/ patient, physical exam, lab review, review of studies, review of inpatient medication list Saw/examined the patient in room 253 She seems more short of breath today Denies any symptoms, but has more sonorous breathing Currently on 2L of oxygen Problem List Medical Problems: (1) Altered mental status Status: Acute (2) Altered mental status Status: Acute (3) Atrial fibrillation Status: Acute (4) Change in mental status Status: Acute (5) CO2 retention Status: Acute (6) Encephalopathy Status: Acute (7) Exacerbation of asthma Status: Acute (8) Respiratory distress Status: Acute (9) UTI (urinary tract infection) Status: Acute Review of Systems Respiratory: No cough, No sputum, No shortness of breath Cardiac: No chest pain Abdomen: No pain Musculoskeletal: No joint pain All Other Systems: Reviewed and Negative Medications Current Inpatient Medications Medications (Trade) Dose Ordered Sig/Mak Route Start Time Stop Time Status Last Admin Dose Admin Albuterol/ Ipratropium (Duoneb) 3 ml QID PRN INH 03/12/18 21:00 04/11/18 19:59 Aspirin (Ecotrin Tab) 81 mg DAILY PO 03/15/18 09:00 04/14/18 08:59 03/23/18 07:45 81 MG Atorvastatin Calcium (Lipitor Tab) 40 mg DAILY PO 03/15/18 09:00 04/14/18 08:59 03/23/18 07:44 40 MG Diltiazem HCl (TIAzac CAP) 120 mg DAILY PO 03/15/18 09:00 04/14/18 08:59 03/23/18 07:44 120 MG Latanoprost (Xalatan Oph Soln) 1 drops HS OPB 03/14/18 21:00 04/13/18 20:59 03/22/18 21:52 1 DROPS Levalbuterol (Xopenex 0.63 Mg/ 3 Ml Neb) 0.63 mg Q4H PRN INH 03/14/18 14:45 04/13/18 14:44 03/20/18 21:49 0.63 MG Levothyroxine Sodium (Synthroid Tab) 100 mcg DAILYBB PO 03/15/18 06:00 04/14/18 05:59 03/23/18 06:23 100 MCG Metoprolol Succinate (Toprol Xl Tab) 50 mg DAILY PO 03/15/18 09:00 04/14/18 08:59 03/23/18 07:44 50 MG Acetaminophen (Tylenol Tab) 650 mg Q6 PRN PO 03/19/18 21:45 04/18/18 21:44 Miconazole Nitrate (Desenex Powder) 1 appln PRN PRN EXT 03/19/18 22:45 04/18/18 22:44 Nystatin (Mycostatin Susp) 5 ml QID PO 03/22/18 13:00 04/01/18 12:59 Prednisone (PredniSONE TAB) 20 mg DAILY PO 03/23/18 09:00 04/16/18 08:59 03/23/18 07:45 20 MG Warfarin Sodium (Coumadin Tab) 1 mg DAILY@16 PO 03/23/18 16:00 04/22/18 15:59 Furosemide (Lasix Tab) 40 mg QAM PO 03/23/18 09:00 04/22/18 08:59 Objective Vital Signs Date Time Temp Pulse Resp B/P (MAP) Pulse Ox O2 Delivery O2 Flow Rate FiO2 03/23/18 07:21 36.7 76 18 132/73 (92) 92 2.0 03/22/18 22:39 36.5 83 20 151/73 (99) 95 Nasal Cannula 2.0 03/22/18 20:00 Nasal Cannula 2.0 03/22/18 16:00 Nasal Cannula 2.0 03/22/18 15:33 124/68 (86) 03/22/18 15:07 36.7 76 21 93/57 (69) 93 Nasal Cannula 2.0 Physical Exam General Appearance: + mild distress (respiratory distress), + obese Respiratory/Chest: + respiratory distress, + decreased breath sounds Extremities: + pedal edema, + swelling (+2 pitting edema b/l LE), + pertinent finding Laboratory Results Last 24 Hours Test 03/23/18 06:41 White Blood Count 11.42 K/uL Red Blood Count 4.38 M/uL Hemoglobin 13.0 g/dL Hematocrit 42.4 % Mean Corpuscular Volume 96.8 fL Mean Corpuscular Hemoglobin 29.7 pg Mean Corpuscular Hemoglobin Concent 30.7 g/dl RDW Standard Deviation 53.5 fL RDW Coefficient of Variation 14.9 % Platelet Count 213 K/uL Mean Platelet Volume 9.2 fL Prothrombin Time 28.3 SECONDS Prothromb Time International Ratio 2.7 Sodium Level 139 mmol/L Potassium Level 4.0 mmol/L Chloride Level 91 mmol/L Carbon Dioxide Level 45 mmol/L Anion Gap 3.0 mmol/L Blood Urea Nitrogen 24 mg/dl Creatinine 0.86 mg/dl Est Creatinine Clear Calc Drug Dose 55.5 ml/min Estimated GFR () 71.4 Estimated GFR (Non- 61.6 BUN/Creatinine Ratio 27.7 Random Glucose 104 mg/dl Calcium Level 8.3 mg/dl Magnesium Level 2.4 mg/dl Assessment and Plan This is an 87 year old female with a past medical history of COPD, chronic CO2 retention, paroxysmal atrial fibrillation, chronic diastolic CHF, hx. of CVA, HTN, hypothyroidism, underlying dementia - presents with acute respiratory failure Acute on Chronic Hypoxic/Hypercapnic Respiratory Failure Acute COPD Exacerbation 03/23 - currently on prednisone 20mg, which we can continue for the COPD exacerbation - continue nebs as needed - oxygen support and wean as tolerated - CO2 retaining; should be using bipap 03/22 - patient with underlying chronic respiratory failure, likely from COPD and CHF - Initially required intubation and mechanical ventilation for ventilatory support - was extubated on 03/13 - patient with CO2 retention chronically - monitor and should be using bipap for support - continue oxygen support - continue nebs and prednisone Acute on Chronic Diastolic CHF Pulmonary Edema 03/23 - worsening breathing status today - will give one dose of Lasix today 03/22 - normal LVEF noted on echo - initially had pulmonary edema - requiring IV Lasix - has had 10 L output - holding Lasix now; due to elevated CO2 - monitor for fluid retention Delirium on Dementia - patient seems to be back to baseline - possible CO2 Narcosis Chronic Atrial Fibrillation - continue metoprolol and Cardizem - currently rate is controlled - Warfarin is resumed during this admission - will likely need 1mg and 2mg alternating Hx. of CVA - continue aspirin/statin HTN - continue home medications Hypothyroidism - continue Synthroid Depression - continue SSRI GI ppx - continue PPI DVT ppx - continue Coumadin; INR goal of 2-3 FULL CODE - for now; palliative care consulted
[2018-03-23] MEDS: FUROSEMIDE 40 MG TAB PO SCH (12:03)
[2018-03-23 15:16] VITALS: BP 142/68; PULSE 69; TEMP 36.8; O2SAT 98
[2018-03-23 16:00] VITALS: O2SAT 98
[2018-03-23] MEDS ORDERED: WARFARIN SOD 1 MG TAB PO SCH ×2 (16:00)
[2018-03-23] MEDS: LATANOPROST 0.005% OP SOLN 2.5 ML BTL OPB SCH (21:11)
[2018-03-23 22:31] VITALS: PULSE 86; O2SAT 96
[2018-03-23 22:58] VITALS: BP 138/79; PULSE 66; TEMP 36.4; O2SAT 91
[2018-03-24] MEDS: LEVOTHYROXINE 100 MCG TAB PO SCH (05:52)
[2018-03-24 07:13] LABS: HEMATOCRIT 40.3 % (37-47); HEMOGLOBIN 12.7 g/dL (12.0-16.0); MEAN CORPUSCULAR HEMOGLOBIN 30.2 pg (25-34); MEAN CORPUSCULAR HGB CONC 31.5 g/dl (32-36); MEAN PLATELET VOLUME 9.1 fL (7.4-10.4); PLATELET COUNT 201 K/uL (130-400); RED CELL DISTRIBUTION WIDTH SD 52.7 fL (36.4-46.3); WHITE BLOOD COUNT 8.94 K/uL (4.8-10.8)
[2018-03-24 07:20] VITALS: BP 145/73; PULSE 68; TEMP 36.8; O2SAT 96
[2018-03-24 07:23] LABS: INR 2.5 (0.9-1.1)
[2018-03-24 08:03] LABS: CALCIUM 8.3 mg/dl (8.5-10.1); CREATININE 0.87 mg/dl (0.60-1.20); POTASSIUM 3.9 mmol/L (3.5-5.1)
[2018-03-24] MEDS: DILTIAZEM HCL 120 MG EXT REL CAP PO SCH (08:29)
[2018-03-24] MEDS: FUROSEMIDE 40 MG TAB PO SCH (08:29)
[2018-03-24] MEDS: ATORVASTATIN 40 MG TAB PO SCH (08:29)
[2018-03-24] MEDS: ASPIRIN 81 MG ECTAB PO SCH (08:29)
[2018-03-24] MEDS: METOPROLOL SUCC 50MG EXT REL TAB PO SCH (08:30)
[2018-03-24] MEDS: NYSTATIN SUSP 500,000 U/5 ML UDC PO SCH ×2 (08:30→11:46)
--- NOTE | 2018-03-24 09:00 | Progress Note ---
Subjective Date of Service: Mar 24, 2018. Subjective Pt evaluation today including: conversation w/ patient, physical exam, lab review, review of studies, review of inpatient medication list Saw/examined the patient in room 253 She's less alert today, not responding to questions Yelling at nursing staff at times Did drink water and take morning medications Problem List Medical Problems: (1) Altered mental status Status: Acute (2) Altered mental status Status: Acute (3) Atrial fibrillation Status: Acute (4) Change in mental status Status: Acute (5) CO2 retention Status: Acute (6) Encephalopathy Status: Acute (7) Exacerbation of asthma Status: Acute (8) Respiratory distress Status: Acute (9) UTI (urinary tract infection) Status: Acute Review of Systems Cannot obtain due to patient's mental status Medications Current Inpatient Medications Medications (Trade) Dose Ordered Sig/Mak Route Start Time Stop Time Status Last Admin Dose Admin Albuterol/ Ipratropium (Duoneb) 3 ml QID PRN INH 03/12/18 21:00 04/11/18 19:59 03/23/18 22:30 3 ML Aspirin (Ecotrin Tab) 81 mg DAILY PO 03/15/18 09:00 04/14/18 08:59 03/24/18 08:29 81 MG Atorvastatin Calcium (Lipitor Tab) 40 mg DAILY PO 03/15/18 09:00 04/14/18 08:59 03/24/18 08:29 40 MG Diltiazem HCl (TIAzac CAP) 120 mg DAILY PO 03/15/18 09:00 04/14/18 08:59 03/24/18 08:29 120 MG Latanoprost (Xalatan Oph Soln) 1 drops HS OPB 03/14/18 21:00 04/13/18 20:59 03/23/18 21:11 1 DROPS Levalbuterol (Xopenex 0.63 Mg/ 3 Ml Neb) 0.63 mg Q4H PRN INH 03/14/18 14:45 04/13/18 14:44 03/20/18 21:49 0.63 MG Levothyroxine Sodium (Synthroid Tab) 100 mcg DAILYBB PO 03/15/18 06:00 04/14/18 05:59 03/24/18 05:52 100 MCG Metoprolol Succinate (Toprol Xl Tab) 50 mg DAILY PO 03/15/18 09:00 04/14/18 08:59 03/24/18 08:30 50 MG Acetaminophen (Tylenol Tab) 650 mg Q6 PRN PO 03/19/18 21:45 04/18/18 21:44 Miconazole Nitrate (Desenex Powder) 1 appln PRN PRN EXT 03/19/18 22:45 04/18/18 22:44 Nystatin (Mycostatin Susp) 5 ml QID PO 03/22/18 13:00 04/01/18 12:59 Prednisone (PredniSONE TAB) 20 mg DAILY PO 03/23/18 09:00 04/16/18 08:59 03/24/18 08:29 20 MG Warfarin Sodium (Coumadin Tab) 1 mg DAILY@16 PO 03/23/18 16:00 04/22/18 15:59 03/23/18 16:16 1 MG Furosemide (Lasix Tab) 40 mg QAM PO 03/23/18 09:00 04/22/18 08:59 03/24/18 08:29 40 MG Objective Vital Signs Date Time Temp Pulse Resp B/P (MAP) Pulse Ox O2 Delivery O2 Flow Rate FiO2 03/24/18 07:20 36.8 68 20 145/73 (97) 96 2.0 03/24/18 00:00 Nasal Cannula 2.0 03/23/18 22:58 36.4 66 20 138/79 (98) 91 Nasal Cannula 2.0 03/23/18 22:31 86 16 96 Nasal Cannula 2.0 03/23/18 16:00 98 Nasal Cannula 2.0 03/23/18 15:16 36.8 69 20 142/68 (92) 98 Nasal Cannula 2.0 Physical Exam General Appearance: + pertinent finding (not responding, she is awake, but not answering questions) Respiratory/Chest: no respiratory distress, no accessory muscle use Laboratory Results Last 24 Hours Test 03/24/18 06:49 White Blood Count 8.94 K/uL Red Blood Count 4.20 M/uL Hemoglobin 12.7 g/dL Hematocrit 40.3 % Mean Corpuscular Volume 96.0 fL Mean Corpuscular Hemoglobin 30.2 pg Mean Corpuscular Hemoglobin Concent 31.5 g/dl RDW Standard Deviation 52.7 fL RDW Coefficient of Variation 15.0 % Platelet Count 201 K/uL Mean Platelet Volume 9.1 fL Prothrombin Time 25.5 SECONDS Prothromb Time International Ratio 2.5 Sodium Level 138 mmol/L Potassium Level 3.9 mmol/L Chloride Level 92 mmol/L Carbon Dioxide Level 42 mmol/L Anion Gap 3.0 mmol/L Blood Urea Nitrogen 24 mg/dl Creatinine 0.87 mg/dl Est Creatinine Clear Calc Drug Dose 54.8 ml/min Estimated GFR () 70.4 Estimated GFR (Non- 60.7 BUN/Creatinine Ratio 27.8 Random Glucose 100 mg/dl Calcium Level 8.3 mg/dl Magnesium Level 2.2 mg/dl Assessment and Plan This is an 87 year old female with a past medical history of COPD, chronic CO2 retention, paroxysmal atrial fibrillation, chronic diastolic CHF, hx. of CVA, HTN, hypothyroidism, underlying dementia - presents with acute respiratory failure Acute on Chronic Hypoxic/Hypercapnic Respiratory Failure Acute COPD Exacerbation 03/24 - will decreased prednisone to 10mg - hold Lasix - continue Coumadin - CO2 improving 03/23 - currently on prednisone 20mg, which we can continue for the COPD exacerbation - continue nebs as needed - oxygen support and wean as tolerated - CO2 retaining; should be using bipap 03/22 - patient with underlying chronic respiratory failure, likely from COPD and CHF - Initially required intubation and mechanical ventilation for ventilatory support - was extubated on 03/13 - patient with CO2 retention chronically - monitor and should be using bipap for support - continue oxygen support - continue nebs and prednisone Acute on Chronic Diastolic CHF Pulmonary Edema 03/23 - worsening breathing status today - will give one dose of Lasix today 03/22 - normal LVEF noted on echo - initially had pulmonary edema - requiring IV Lasix - has had 10 L output - holding Lasix now; due to elevated CO2 - monitor for fluid retention Delirium on Dementia - patient seems to be back to baseline - possible CO2 Narcosis Chronic Atrial Fibrillation - continue metoprolol and Cardizem - currently rate is controlled - Warfarin is resumed during this admission - will likely need 1mg and 2mg alternating Hx. of CVA - continue aspirin/statin HTN - continue home medications Hypothyroidism - continue Synthroid Depression - continue SSRI GI ppx - continue PPI DVT ppx - continue Coumadin; INR goal of 2-3 FULL CODE - for now; palliative care consulted
[2018-03-24] MEDS ORDERED: PRD10 PO (10:34)
[2018-03-24] MEDS ORDERED: CMD1 PO (10:34)
[2018-03-24] MEDS ORDERED: NYSS5 PO (10:34)
--- NOTE | 2018-03-24 11:04 | Discharge Instructions ---
Discharge Instructions Date of Service Mar 24, 2018. Admission Reason for Admission: Acute Chronic Obstructive Pulmonary Disease With Discharge Discharge Diagnosis / Problem: Respiratory failure, COPD, fluid overload Discharge Goals Goal(s): Decrease discomfort, Improve function, Diagnostic testing, Therapeutic intervention Activity Recommendations Activity Level: Up [place] Therapies: Physical Therapy, Occupational Therapy . Additional Information Patient informed of condition: Yes Advance Directives: No DNR: No Level of Care: Acute Rehab Communicable Disease: No Prognosis: Stable Oxygen at (LPM): 2L De Oliveira Catheter: No Instructions / Follow-Up Instructions / Follow-Up Patient should follow-up with PCP after stay at [facility] * Patient will be on Coumadin 1mg for now, may need an alternating dose of 2mg and 1mg, INR should be checked q3-4 days * Lasix will be at 40mg daily for now; may need to decrease to 20mg depending on clinical course * Prednisone 10mg x3 days then stop * continue nebulizers as needed * Currently on 2L of oxygen - can wean as tolerated Current Hospital Diet Patient's current hospital diet: AHA Diet (Heart Healthy) Discharge Diet Recommended Diet: AHA Diet (Heart Healthy) Pending Studies Studies pending at discharge: no Medical Emergencies . Who to Call and When: Medical Emergencies: If at any time you feel your situation is an emergency, please call 911 immediately. . Non-Emergent Contact Non-Emergency issues call your: Primary Care Provider . . "Provider Documentation" section prepared by Roney Sneed. . Core Measure Problem Core Measures: None
--- NOTE | 2018-03-24 11:06 | Discharge Summary ---
Discharge Summary Date of Service Mar 24, 2018. Discharge Summary Admission Date: Mar 12, 2018 at 17:38 Discharge Date: Mar 24, 2018 Discharge Disposition: long term facility Principal Diagnosis: Acute on Chronic Hypoxic/Hypercapnic Respiratory Failure Acute COPD Exacerbation Acute on Chronic Diastolic CHF Pulmonary Edema Delirium on Dementia Chronic Atrial Fibrillation Hx. of CVA HTN Hypothyroidism Depression Medication Reconciliation New Medications: Nystatin (Nystatin) 5 Ml Susp 5 ML PO QID for 10 Days, #200 ML Prednisone (Prednisone) 10 Mg Tab 10 MG PO DAILY for 3 Days, #3 TAB Warfarin Sod (Coumadin) 1 Mg Tab 1 MG PO DAILY for 30 Days, #30 TAB Continued Medications: Acetaminophen Tab (Tylenol) 325 Mg Tab 650 MG PO Q6H PRN for Pain or Fever, TAB Aspirin (Aspirin Ec) 81 Mg Tab 81 MG PO DAILY Atorvastatin (Lipitor) 40 Mg Tab 40 MG PO DAILY Bacitracin (Bacitracin Zinc) 45 Appln/15 Gm Oint 1 APPLN EXT BID for 30 Days, #1 TUBE Bisacodyl (Dulcolax) 10 Mg Sup 1 SUPP NM PRN UD PRN for Constipation, SUP Diltiazem Hcl Ext Rel (Tiazac) 120 Mg Capcr 120 MG PO DAILY, CAP Furosemide (Furosemide) 40 Mg Tab 40 MG PO DAILY for 30 Days, #30 TAB Ipratropium [place] (Ipratropium [place]) 0.5 Mg/2.5 Ml Nebu 0.5 MG INH Q4H PRN for Shortness of Breath for 30 Days, #300 ML Latanoprost (Latanoprost) 37 Drops/2.5 Ml Soln 1 DROP OPB HS Levalbuterol (Levalbuterol HCl) 0.63 Mg/3 Ml Nebu 0.63 MG INH Q4H PRN for Shortness of Breath for 30 Days, #360 ML Levothyroxine Sodium (Levothyroxine Sodium) 100 Mcg Tab 1 TAB PO DAILY for 30 Days, #30 TAB 5 Refills Magnesium Hydroxide (Milk Of Magnesia) 30 Ml Susp 30 ML PO PRN UD PRN for constipation, ML Q 72 HR. PRN Metoprolol Succ (Toprol Xl) (Toprol-Xl) 50 Mg Tabcr 50 MG PO DAILY, #30 TAB Oxybutynin Chloride (Oxybutynin Chloride Er) 5 Mg Tab 5 MG PO DAILY for 90 Days, #90 TAB 3 Refills Potassium Chloride Microencaps (Potassium Chloride Er) 10 Meq Tab 20 MEQ PO DAILY Sodium Phosphates (Fleet Enema Six Pack) 1 Karen Karen 1 DOSE RE PRN UD PRN for Constipation PER BOWEL PROTOCAL Admission Information HPI (per Admitting provider): She is an 87-year-old female with them significant past medical history including COPD, CHF, atrial fibrillation, hypothyroidism, ambulatory dysfunction and dementia apparently was sent in from [facility] this afternoon with change in mental status. History was obtained from ER physicians and also from the chart. She was noted to be hypoxic on arrival and her condition deteriorated with unresponsiveness and very high CO2 on Blood gas that she required intubation. She was admitted to ICU for continued care. She was recently discharged from the hospital on 25 of February following a prolonged hospital stay for acute on chronic respiratory failure likely secondary to pneumonia and metabolic encephalopathy with the other comorbid conditions as mentioned below. She had a prolonged hospital stay for social reason and as per the court ordered she was sent to [facility] for continued care. Physical Exam (per Admitting): General Appearance: + pertinent finding (unresponsive and Intubated) Head: normocephalic Eyes: normal inspection (Closed) ENT: normal ENT inspection Neck: supple Respiratory/Chest: + decreased breath sounds, + wheezing Cardiovascular: regular rate, rhythm Abdomen/GI: normal bowel sounds Extremities/Musculoskelatal: + pedal edema Neurologic/Psych: + pertinent finding (Unresponsive and Intubated) Skin: + cyanosis, + mottled Lymphatic: no adenopathy Hospital Course This is an 87 year old female with a past medical history of COPD, chronic CO2 retention, paroxysmal atrial fibrillation, chronic diastolic CHF, hx. of CVA, HTN, hypothyroidism, underlying dementia - presents with acute respiratory failure Acute on Chronic Hypoxic/Hypercapnic Respiratory Failure Acute COPD Exacerbation 03/24 - will decreased prednisone to 10mg - hold Lasix - continue Coumadin - CO2 improving 03/23 - currently on prednisone 20mg, which we can continue for the COPD exacerbation - continue nebs as needed - oxygen support and wean as tolerated - CO2 retaining; should be using bipap 03/22 - patient with underlying chronic respiratory failure, likely from COPD and CHF - Initially required intubation and mechanical ventilation for ventilatory support - was extubated on 03/13 - patient with CO2 retention chronically - monitor and should be using bipap for support - continue oxygen support - continue nebs and prednisone Acute on Chronic Diastolic CHF Pulmonary Edema 03/23 - worsening breathing status today - will give one dose of Lasix today 03/22 - normal LVEF noted on echo - initially had pulmonary edema - requiring IV Lasix - has had 10 L output - holding Lasix now; due to elevated CO2 - monitor for fluid retention Delirium on Dementia - patient seems to be back to baseline - possible CO2 Narcosis Chronic Atrial Fibrillation - continue metoprolol and Cardizem - currently rate is controlled - Warfarin is resumed during this admission - will likely need 1mg and 2mg alternating Hx. of CVA - continue aspirin/statin HTN - continue home medications Hypothyroidism - continue Synthroid Depression - continue SSRI GI ppx - continue PPI DVT ppx - continue Coumadin; INR goal of 2-3 FULL CODE - for now; palliative care consulted Total time spent on discharge = 45 minutes This includes examination of the patient, discharge planning, medication reconciliation, and communication with other providers. Discharge Instructions Patient should follow-up with PCP after stay at [facility] * Patient will be on Coumadin 1mg for now, may need an alternating dose of 2mg and 1mg, INR should be checked q3-4 days * Lasix will be at 40mg daily for now; may need to decrease to 20mg depending on clinical course * Prednisone 10mg x3 days then stop * continue nebulizers as needed * Currently on 2L of oxygen - can wean as tolerated
[2018-03-24 11:23] VITALS: BP 145/73; PULSE 68; TEMP 36.8; O2SAT 96
== END 2018-03-24 14:11 | DRG 208 ==
LOC: EDBD 15:15 → C.EDC 15:16 → C.MSICU 17:38 → ENRESERV 17:46 → C.2T 03-14 14:26 → ENRESERV 03-17 09:35 → C.MS2W 03-17 10:30
PROVIDERS: ADMIT Internal Medicine; ATTEND Family Medicine
PROC: 0BH17EZ Insertion of Endotracheal Airway into Trachea, Via Natural or Artificial Opening (ICD-10-PCS; principal; 2018-03-12)
PROC: 5A1935Z Respiratory Ventilation, Less than 24 Consecutive Hours (ICD-10-PCS; principal; 2018-03-12)
DX: J96.01 Acute respiratory failure with hypoxia (principal); G93.41 Metabolic encephalopathy; J44.1 Chronic obstructive pulmonary disease with (acute) exacerbation; E87.1 Hypo-osmolality and hyponatremia; E87.2 Acidosis; I50.33 Acute on chronic diastolic (congestive) heart failure; I65.29 Occlusion and stenosis of unspecified carotid artery; E03.9 Hypothyroidism, unspecified; I11.0 Hypertensive heart disease with heart failure; Z95.0 Presence of cardiac pacemaker; Z83.3 Family history of diabetes mellitus; Z82.49 Family history of ischemic heart disease and other diseases of the circulatory system; Z88.0 Allergy status to penicillin; J96.22 Acute and chronic respiratory failure with hypercapnia; I48.2 Chronic atrial fibrillation; F01.50 Vascular dementia, unspecified severity, without behavioral disturbance, psychotic disturbance, mood disturbance, and anxiety

== ENCOUNTER 2018-07-20 05:34 | Inpatient (IN) ==
[2018-07-20] MEDS ORDERED: ALBUT/IPRATROP 3MG/0.5MG NEB 3 ML VIAL NEB ONE (05:43)
--- NOTE | 2018-07-20 05:49 | Emergency Department Note ---
ED Provider Note Name: Anju Huggins Age: 87F Arrives Via: EMS Informant: EMS, Nursing. Pt is poor historian/demented CC: Shortness of breath HPI: 87 female arrives for evaluation of shortness of breath. She has long history of copd and chf. She started having breathing difficulty this evening. Gradually worsening. Noted O2 sats in 70s at custodial and difficulty breathing. Called 911 and brought to ED. IV and NC O2 started en route. No medications prior to arrival. Any movement makes worse. NC O2 improved oxygenation though rapidly drops once off oxygen. Patient without complaints and is somnolent/demented. Unknown if recent change in medications, new medications or other. Per EMS patient is full code. ROS: Unable to obtain secondary to Dementia. Past Medical History: HTN, CVA, Hypothyroid, Dementia, COPD, CAD, CHF, Afib Past Surgical History: Unable to obtain secondary to dementia Family History: Unable to obtain secondary to dementia Social History: Lives in custodial, further information not available Home Medications: Tylenol, Eliquis, Aspirin, Lipitor, Vit d3, diltiazem, lasix , duoneb, levothyroxine, magnesium, metoprolol, oxybutynin, potassium, senna Allergies PNC, Adhesives Physical: Vitals: BP 119/93, P 76, R 24, T 36.5, O2 72% on 8L NC Exam: GENERAL: Patient is chronically unwell appearing, acute distress and somnolent EYES: No scleral icterus, unremarkable pupils. ENT: Mucous membranes dry, no nasal congestion. NECK: No masses appreciated, no meningismus, trachea is midline. RESPIRATORY: Very tight lung sounds, dypsneic, tachypneic. CARDIOVASCULAR: Regular rate and rhythm. No murmurs, rubs, gallops appreciated. GASTROINTESTINAL: Abdomen soft, non-tender, no peritonitis. Bowel sounds positive. No masses appreciated. BACK: No midline tenderness, no CVA tenderness EXTREMITIES: Normal motion all extremities, no cyanosis, no edema. NEUROLOGIC: Demented, somnolent, no acute motor or sensory deficits, no focal weakness, cranial nerves grossly intact. SKIN: No rash, no jaundice, no diaphoresis. ED Course: Prior Medical Record, Triage/Nursing Notes, Medications, Allergies reviewed by Me Vital Signs: reviewed and remarkable for hypoxia Labs: Reviewed and remarkable for ABG with acidosis and CO2 elevated. Otherwise trop, cbc, bmp unremarkable Interventions: Saline Lock, BiPAP, Solu-Medrol 125mg IV Imaging: X ray results are stated below per my interpretation: Chest: 1 view: Mild congestive finding improved from previous CXR EKG: Per My interpretation: Aflutter with periodically ventricularly paced beats. No ischmia Consults: Dr Collier of [facility] hospitalist for admission Reassessments/Times: Multiple re-evals. Tolerating BiPAP well. Daughter at bedside updated. Daughter notes she is not POA and is not sure code status Blood pressure: Normal. No Referral necessary Disposition: Admitted to Hospitalist service. Differentials: COPD, CHF, ACS, PE, Dissection, PNA, Pneumothorax amongst other pathologies. Medical Decision Makin yr old female with multiple medical comorbidities arrives in acute respiratory failure. Very tight lung sounds on arrival with hypoxia. Placed on NRB and switched to BiPAP. Tolerated Bipap well. Continuous neb started. By exam she looks more dry than wet. CXR with mild congestive findings but not overt failure compared to previous. BNP only mildly elevated. She was given IV steroids for COPD. ABG returned consistent with CO2 retaining. No clear evidence this is infectious. Not septic as no fever, no wbc elevation, normal BP and normal lactate. Doubt PE given eliquis use. No symptoms consistent with dissection. She is breathing much improved and sleeping comfortably. Daughter at bedside who notes pt not been herself last few days. Hospitalist consulted for further management. Impression: Acute Exacerbation of Chronic Obstructive Pulmonary Disease Respiratory Failure Acute Hypercapnic Respiratory Failure Critical Care Time: I have personally spent greater than 30 minutes of critical care time in the direct management of this patient. Acute respiratory failure secondary to COPD with elevated CO2, Hypoxia and need for BIPAP. This was a life/limb threatening event. This includes time spent evaluating patient, direct bedside care, chart review, placing orders, interpretation of diagnostic studies, discussion with consultants, patient, and family members, as well as other required patient management activities. This 30 minutes is in excess of all separately billable procedures. Impression & Plan Acute exacerbation of chronic obstructive pulmonary disease (COPD), Respiratory failure, Acute hypercapnic respiratory failure Past Med/Surg History Social History Feels Safe at Home: Yes Smoking Status: Never smoker Results & Data Vital Signs Vital Signs - 24 hr 07/20/18 05:36 12/24/18 05:40 07/20/18 06:08 Temperature 36.5 C Temperature Source Rectal Sepsis Action Taken by Nursing No Action Required Pulse Rate 79 83 Pulse Rate [Radial] 83 Pulse Rhythm [Radial] Pulse Strength [Radial] Respiratory Rate 24 20 Respiratory Effort / Characteristics Labored Labored Respiratory Depth Normal Respiratory Pattern Regular Blood Pressure 148/109 H Blood Pressure [Left Arm] Blood Pressure Mean 122 Blood Pressure Mean [Left Arm] Blood Pressure Position [Left Arm] Pulse Oximetry 74 L 96 Oxygen Delivery Method Room Air Oxymask BiPAP Oxygen Flow Rate 4 Fraction of Inspired Oxygen 50 07/20/18 06:27 07/20/18 07:00 Temperature Temperature Source Sepsis Action Taken by Nursing Pulse Rate Pulse Rate [Radial] 76 86 Pulse Rhythm [Radial] Regular Pulse Strength [Radial] Normal Respiratory Rate 24 20 Respiratory Effort / Characteristics Non-Labored Spontaneous Respiratory Depth Normal Respiratory Pattern Regular Blood Pressure Blood Pressure [Left Arm] 119/93 107/50 L Blood Pressure Mean Blood Pressure Mean [Left Arm] 101 69 Blood Pressure Position [Left Arm] Sitting Pulse Oximetry 99 100 Oxygen Delivery Method BiPAP BiPAP Oxygen Flow Rate Fraction of Inspired Oxygen Laboratory Data Result diagrams: 07/20/18 05:55 07/20/18 05:55 Lab Results 07/20/18 07/20/18 07/20/18 Range/Units 05:55 05:55 05:55 WBC 6.95 (4.8-10.8) K/uL RBC 4.03 L (4.2-5.4) M/uL Hgb 12.1 (12.0-16.0) g/dL Hct 39.8 (37-47) % MCV 98.8 (80-100) fL MCH 30.0 (25-34) pg MCHC 30.4 L (32-36) g/dL RDW Std Deviation 55.5 H (36.4-46.3) fL RDW Coeff of Jorge 15.4 H (11.5-14.5) % Plt Count 239 (130-400) K/uL MPV 9.3 (7.4-10.4) fL Immature Gran % (Auto) 0.1 % Neut % (Auto) 79.2 % Lymph % (Auto) 9.8 % Simpson % (Auto) 9.4 % Eos % (Auto) 1.2 % Baso % (Auto) 0.3 % Immature Gran # (Auto) 0.01 (0.00-0.02) K/uL Neut # (Auto) 5.51 (1.4-6.5) K/uL Lymph # (Auto) 0.68 L (1.2-3.4) K/uL Simpson # (Auto) 0.65 H (0.11-0.59) K/uL Eos # (Auto) 0.08 (0-0.5) K/uL Baso # (Auto) 0.02 (0-0.2) K/uL PT 11.0 (9.0-12.0) Seconds INR 1.1 (0.9-1.1) ABG pH (7.35-7.45) ABG pCO2 (35-46) mmHg ABG pO2 (80-95) mm/Hg ABG HCO3 (19-24) mmol/L ABG O2 Saturation (90-95) % ABG Base Excess (-9-1.8) mEq/L Liborio Test (Pos) Barometric Pressure mm/Hg Oxygen Given Sodium 136 (136-145) mmol/L Potassium 5.0 (3.5-5.1) mmol/L Chloride 96 L (98-107) mmol/L Carbon Dioxide 37 H (21-32) mmol/L Anion Gap 3.0 (3-11) BUN 18 (7-18) mg/dl Creatinine 1.03 (0.6-1.2) mg/dl Est Cr Clr Drug Dosing 50.4 ml/min Est GFR ( Amer) 57.4 Est GFR (Non-Af Amer) 49.5 BUN/Creatinine Ratio 17.4 (10-20) Glucose 117 H (70-99) mg/dl POC Lactic Acid Bulmaro (0.90-1.70) mmol/L Calcium 9.0 (8.5-10.1) mg/dl Magnesium 2.1 (1.8-2.4) mg/dl Total Bilirubin 0.6 (0.1-1) mg/dl Direct Bilirubin 0.2 (0-0.2) mg/dl AST 24 (15-37) U/L ALT 22 (12-78) U/L Alkaline Phosphatase 99 (45-117) U/L Troponin I < 0.015 (0-0.045) ng/ml NT-Pro-B Natriuret Pep 2690 H (0-1800) pg/ml Total Protein 7.8 (6.4-8.2) gm/dl Albumin 3.3 L (3.4-5.0) gm/dl TSH 2.560 (0.300-4.500) uIu/ml 07/20/18 07/20/18 Range/Units 06:01 06:10 WBC (4.8-10.8) K/uL RBC (4.2-5.4) M/uL Hgb (12.0-16.0) g/dL Hct (37-47) % MCV (80-100) fL MCH (25-34) pg MCHC (32-36) g/dL RDW Std Deviation (36.4-46.3) fL RDW Coeff of Jorge (11.5-14.5) % Plt Count (130-400) K/uL MPV (7.4-10.4) fL Immature Gran % (Auto) % Neut % (Auto) % Lymph % (Auto) % Simpson % (Auto) % Eos % (Auto) % Baso % (Auto) % Immature Gran # (Auto) (0.00-0.02) K/uL Neut # (Auto) (1.4-6.5) K/uL Lymph # (Auto) (1.2-3.4) K/uL Simpson # (Auto) (0.11-0.59) K/uL Eos # (Auto) (0-0.5) K/uL Baso # (Auto) (0-0.2) K/uL PT (9.0-12.0) Seconds INR (0.9-1.1) ABG pH 7.27 L (7.35-7.45) ABG pCO2 82 H (35-46) mmHg ABG pO2 108 H (80-95) mm/Hg ABG HCO3 37 H (19-24) mmol/L ABG O2 Saturation 97.2 H (90-95) % ABG Base Excess 6.9 H (-9-1.8) mEq/L Liborio Test POS (Pos) Barometric Pressure 733.4 mm/Hg Oxygen Given 50% Sodium (136-145) mmol/L Potassium (3.5-5.1) mmol/L Chloride (98-107) mmol/L Carbon Dioxide (21-32) mmol/L Anion Gap (3-11) BUN (7-18) mg/dl Creatinine (0.6-1.2) mg/dl Est Cr Clr Drug Dosing ml/min Est GFR ( Amer) Est GFR (Non-Af Amer) BUN/Creatinine Ratio (10-20) Glucose (70-99) mg/dl POC Lactic Acid Bulmaro 0.61 L (0.90-1.70) mmol/L Calcium (8.5-10.1) mg/dl Magnesium (1.8-2.4) mg/dl Total Bilirubin (0.1-1) mg/dl Direct Bilirubin (0-0.2) mg/dl AST (15-37) U/L ALT (12-78) U/L Alkaline Phosphatase (45-117) U/L Troponin I (0-0.045) ng/ml NT-Pro-B Natriuret Pep (0-1800) pg/ml Total Protein (6.4-8.2) gm/dl Albumin (3.4-5.0) gm/dl TSH (0.300-4.500) uIu/ml Administered Medications Discontinued Medications Albuterol (Duoneb) 12 ml NEB ONE ONE Stop: 07/20/18 05:44 Last Admin: 07/20/18 06:08 Dose: 12 ml Methylprednisolone (Solumedrol) 125 mg IV NOW STA Stop: 07/20/18 06:36 Last Admin: 07/20/18 06:48 Dose: 125 mg Discharge Plan Visit Data Chief Complaint: Shortness of Breath/Dyspnea ED Provider: Messi Huff Discharge Problem: Acute exacerbation of chronic obstructive pulmonary disease (COPD), Respiratory failure, Acute hypercapnic respiratory failure Forms Stand Alone Forms: My [facility] [employer] Prescriptions Prescriptions: No Action furosemide [Lasix] 40 mg Tablet 40 mg PO DAILY RF: 0 ipratropium-albuterol 0.5 mg-3 mg(2.5 mg base)/3 mL Solution For Nebulization 3 ml INHALATION Q4 PRN (Reason: Shortness Of Breath Or Wheezing) RF: 0 metoprolol succinate 50 mg Tablet Extended Release 24 Hr 50 mg PO DAILY RF: 0 aspirin 81 mg Tablet,Delayed Release (Dr/Ec) 81 mg PO DAILY RF: 0 diltiazem HCl 120 mg Capsule,Extended Release 24 Hr 120 mg PO DAILY RF: 0 cholecalciferol (vitamin D3) [Vitamin D3] 2,000 unit Tablet 4,000 unit PO DAILY RF: 0 levothyroxine 100 mcg Capsule 100 mcg PO DAILY RF: 0 apixaban [Eliquis] 5 mg Tablet 5 mg PO BID RF: 0 latanoprost 0.005 % Drops 1 drp OPB PM RF: 0 atorvastatin [Lipitor] 40 mg Tablet 40 mg PO DAILY RF: 0 levalbuterol HCl 0.63 mg/3 mL Solution For Nebulization 0.63 mg INHALATION Q4 PRN (Reason: Shortness Of Breath) RF: 0 sennosides-docusate sodium [Senna with Docusate Sodium] 8.6-50 mg Tablet 1 tab PO BID RF: 0 potassium chloride 10 mEq Tablet Extended Release 20 meq PO DAILY RF: 0 magnesium hydroxide [Milk of Magnesia] 400 mg/5 mL Suspension 2,400 mg PO UD PRN (Reason: Constipation) RF: 0 oxybutynin chloride 5 mg Tablet Extended Release 24hr 5 mg PO DAILY RF: 0 acetaminophen 325 mg Tablet 650 mg PO Q6H MDD 3gm/24hr PRN (Reason: Pain) RF: 0 acetaminophen 325 mg Tablet 650 mg PO Q6H MDD 3gm/24hr PRN (Reason: Fever) RF: 0
[2018-07-20 06:12] LABS: Basophils # (auto) 0.02 K/uL (0-0.2); Basophils % (auto) 0.3 %; Eosinophils # (auto) 0.08 K/uL (0-0.5); Eosinophils % (auto) 1.2 %; Hematocrit (blood only) 39.8 % (37-47); Hemoglobin 12.1 g/dL (12.0-16.0); Immature Granulocytes # (auto) 0.01 K/uL (0.00-0.02); Immature Granulocytes % (auto) 0.1 %; Lymphocytes # (auto) 0.68 K/uL (1.2-3.4); Lymphocytes % (auto) 9.8 %; Mean Corpuscular Hgb Conc 30.4 g/dL (32-36); Mean Corpuscular Volume 98.8 fL (80-100); Mean Platelet Volume 9.3 fL (7.4-10.4); Monocytes # (auto) 0.65 K/uL (0.11-0.59); Monocytes % (auto) 9.4 %; Neutrophils # (auto) 5.51 K/uL (1.4-6.5); Neutrophils % (auto) 79.2 %; Platelet Count 239 K/uL (130-400); RDW Coefficient of Variation 15.4 % (11.5-14.5); RDW Standard Deviation 55.5 fL (36.4-46.3); Red Blood Count 4.03 M/uL (4.2-5.4); White Blood Count 6.95 K/uL (4.8-10.8)
[2018-07-20 06:28] LABS: HCO3 ABG 37 mmol/L (19-24); Oxygen Saturation ABG 97.2 % (90-95); PCO2 ABG 82 mmHg (35-46); PO2 ABG 108 mm/Hg (80-95); pH ABG 7.27 (7.35-7.45)
[2018-07-20 06:30] LABS: Allen Test POS (Pos)
[2018-07-20 06:33] LABS: Albumin Level 3.3 gm/dl (3.4-5.0); Blood Urea Nitrogen 18 mg/dl (7-18); Creatinine Clr Calc Pharmacy 50.4 ml/min; Est GFR (African American) 57.4; Est GFR (Non-African American) 49.5; Glucose 117 mg/dl (70-99)
[2018-07-20] MEDS ORDERED: methylPREDNISolone 125 MG/2 ML VIAL IV STA (06:35)
[2018-07-20 06:40] LABS: Bilirubin Direct 0.2 mg/dl (0-0.2)
[2018-07-20 06:41] LABS: Alanine Aminotransferase 22 U/L (12-78); Alkaline Phosphatase 99 U/L (45-117); Aspartate Aminotransferase 24 U/L (15-37); BUN Creatinine Ratio 17.4 (10-20); Bilirubin,Total 0.6 mg/dl (0.1-1); Carbon Dioxide 37 mmol/L (21-32); Chloride 96 mmol/L (98-107); INR 1.1 (0.9-1.1); Magnesium 2.1 mg/dl (1.8-2.4); NT Pro B Type Natriuretic Pept 2690 pg/ml (0-1800); Sodium 136 mmol/L (136-145); Total Protein 7.8 gm/dl (6.4-8.2); Troponin I < 0.015 ng/ml (0-0.045)
--- NOTE | 2018-07-20 06:48 | XRay Report ---
XR chest 1V portable CLINICAL HISTORY: Shortness of breath COMPARISON STUDY: March 16, 2018 FINDINGS: The heart remains enlarged. There is a left subclavian dual-chamber central venous pacemake r. There is a persistent small right pleural effusion. There are persistent basilar opacities likely atelectatic. There is mild pulmonary vascular congestion.[ IMPRESSION: 1. Cardiomegaly and mild pulmonary vascular congestion 2. Small right pleural effusion 3. Persistent basilar opacities statistically atelectatic Electronically signed by: Darius Correa M.D. 07/20/2018 6:47 AM
[2018-07-20 08:59] LABS: pH VBG 7.22 (7.36-7.41)
--- NOTE | 2018-07-20 09:46 | History & Physical Report ---
Date of Service July 20, 2018 Assessment & Plan (1) Acute on chronic respiratory failure with hypoxia and hypercapnia: (2) COPD (chronic obstructive pulmonary disease): -Admit to ICU -Patient sent to the ED from [facility] for evaluation of shortness of breath and altered mental status -In the ED, ABG showing respiratory acidosis with pH 7.27, PCO2 82, PO2 108, HCO3 37 -Placed on BiPAP in the ED; check VBG to monitor for improvement -Case discussed with Dr. Yeboah - patient will be transferred to ICU for evaluation of intubation -CXR shows mild pulmonary vascular congestion, negative for focal infiltrate - defer to safety specialist for possible diuresis (3) Diastolic CHF: -Typically managed on furosemide 40 mg daily -Defer to safety specialist for diuresis management (4) Atrial fibrillation: (5) S/P placement of cardiac pacemaker: -Rate controlled on metoprolol and diltiazem -Given inability to take p.o., will change metoprolol to IV; resume diltiazem once taking p.o. or via OG/NG -Anticoagulated on Eliquis, resume once taking p.o. or via OG and GF possible, if unable consider therapeutic dose Lovenox (6) Hypertension: -BP controlled, metoprolol/diltiazem as above (7) Cerebrovascular disease: -Continue aspirin and statin once taking p.o. or via OG/NG (8) Hypothyroidism: -Levothyroxine converted to IV (9) DVT prophylaxis: -Anticoagulation as above (10) Discharge planning issues: -Patient's court appointed guardian, Bronwyn Freedman, was updated. -Emergency phone number: [phone] (not to be shared with patient's family) -Bronwyn reports that patient is to remain a full code at this time and that she is to be updated frequently with any condition changes. History of Present Illness Chief Complaint: Respiratory distress Primary Care Provider: [facility] 87-year-old female who was sent to the ED from [facility] for respiratory distress and altered mental status. History is currently unobtainable from the patient due to her altered mental status. Per daughter who is the bedside, she reports that she has noticed differences in her mother over the past few days. She notes increasing shortness of breath and confusion. This morning at [facility], patient was found to be hypoxic and difficult to arouse so she was sent to the ED for further evaluation. In the ED, patient was 74% on room air. She was subsequently placed on BiPAP. ABGs demonstrate a respiratory acidosis with pH 7.27, PCO2 82, PO2 108, HCO3 37. ProBNP 2690. Other labs are unremarkable. CXR shows mild pulmonary vascular congestion. She was given a nebulizer treatment and Solu-Medrol 125 mg IV. Allergies Allergy/AdvReac Type Severity Reaction Status Date / Time Penicillins Allergy Unknown RXN TO Verified 07/20/18 06:19 AMOXICILLIN adhesive AdvReac Mild RXN TO TAPE Verified 07/20/18 06:19 Home Medications Home Medications Medication Instructions Recorded Confirmed Type acetaminophen 650 mg PO Q6H PRN MDD 3gm/24hr 07/20/18 07/20/18 History apixaban [Eliquis] 5 mg PO BID 07/20/18 07/20/18 History aspirin 81 mg PO DAILY 07/20/18 07/20/18 History atorvastatin [Lipitor] 40 mg PO DAILY 07/20/18 07/20/18 History bisacodyl [Dulcolax (bisacodyl)] 10 mg PA DAILY PRN 07/20/18 07/20/18 History cholecalciferol (vitamin D3) 4,000 unit PO DAILY 07/20/18 07/20/18 History [Vitamin D3] clotrimazole-betamethasone 1 applic TOPICAL BID 07/20/18 07/20/18 History [Lotrisone] diltiazem HCl 120 mg PO DAILY 07/20/18 07/20/18 History furosemide [Lasix] 40 mg PO DAILY 07/20/18 07/20/18 History ipratropium-albuterol 3 ml INHALATION Q4 PRN 07/20/18 07/20/18 History latanoprost 1 drp OPB PM 07/20/18 07/20/18 History levalbuterol HCl 0.63 mg INHALATION Q4 PRN 07/20/18 07/20/18 History levothyroxine 100 mcg PO DAILY 07/20/18 07/20/18 History magnesium hydroxide [Milk of 2,400 mg PO UD PRN 07/20/18 07/20/18 History Magnesia] metoprolol succinate 50 mg PO DAILY 07/20/18 07/20/18 History oxybutynin chloride 5 mg PO DAILY 07/20/18 07/20/18 History potassium chloride 20 meq PO DAILY 07/20/18 07/20/18 History sennosides-docusate sodium [Senna 1 tab PO BID 07/20/18 07/20/18 History with Docusate Sodium] sodium phosphates [Fleet Enema] 118 ml PA DAILY PRN 07/20/18 07/20/18 History Past Med/Surg History Medical History Hypertension (Chronic) Cerebrovascular disease (Chronic) "ischemic stroke left basal ganglia 2009" Hypothyroidism (Chronic) Dementia (Chronic) "mild" Urinary incontinence (Chronic) COPD (chronic obstructive pulmonary disease) (Chronic) Carotid artery disease (Chronic) "carotid duplex [facility] 11/29/16: bilat plaque, moderate ECA stenosis bilat, no significant ICA stenosis" Symptomatic bradycardia (Chronic) "S/P pacemaker" Diastolic CHF (Chronic) Atrial fibrillation (Chronic) Surgical History S/P placement of cardiac pacemaker (Chronic) Family History Other Family history unobtainable due to patient's condition Social History Current Living Situation: Intermediate Current Living Situation Comment: [facility] Other Information That Helps Us Care for You: No Feels Safe at Home: Yes Safety Concerns: Feels Safe At This Time Smoking Status: Never smoker Hx Alcohol Use: No Hx Substance Use: No Beliefs That Will Affect Care: None Communication Ability: Impaired Review of Systems Unobtainable due to reduced consciousness Physical Exam 2 Vital Signs (Past 24 Hours): Last Vital Signs Temp 36.5 C 07/20/18 05:36 Pulse 89 07/20/18 08:00 Resp 20 07/20/18 08:00 BP 113/70 07/20/18 08:00 Pulse Ox 100 07/20/18 08:00 Constitutional: WD/WN, vitals as above + ill appearing (Obtunded, minimally responsive to verbal and tactile stimuli) Eyes: PERRL, conjunctivae normal, anicteric sclerae ENMT: external ear and nose normal, oropharynx normal Respiratory: normal respiratory effort; no respiratory distress Auscultation: + diminished lung sounds On BiPAP Cardiovascular: Rate/Rhythm: regular rate; + abnormal rhythm (Irregularly irregular) Vessels: normal peripheral pulses Extremities: + edema (Trace edema BLE) Gastrointestinal (Abdomen): normal bowel sounds, soft, nontender, no hepatosplenomegaly Musculoskeletal: Extremities: + abnormal strength (Strength unable to be assessed due to mental status); no cyanosis and no clubbing Skin: no rashes, warm and dry Neurologic: + obtunded Psychiatric: Unable to be assessed secondary to current mental status Results & Data Laboratory Results Laboratory Last Values WBC 6.95 K/uL (4.8-10.8) 07/20/18 05:55 RBC 4.03 M/uL (4.2-5.4) L 07/20/18 05:55 Hgb 12.1 g/dL (12.0-16.0) 07/20/18 05:55 Hct 39.8 % (37-47) 07/20/18 05:55 MCV 98.8 fL (80-100) 07/20/18 05:55 MCH 30.0 pg (25-34) 07/20/18 05:55 MCHC 30.4 g/dL (32-36) L 07/20/18 05:55 RDW Std Deviation 55.5 fL (36.4-46.3) H 07/20/18 05:55 RDW Coeff of Jorge 15.4 % (11.5-14.5) H 07/20/18 05:55 Plt Count 239 K/uL (130-400) 07/20/18 05:55 MPV 9.3 fL (7.4-10.4) 07/20/18 05:55 Immature Gran % (Auto) 0.1 % 07/20/18 05:55 Neut % (Auto) 79.2 % 07/20/18 05:55 Lymph % (Auto) 9.8 % 07/20/18 05:55 [place] % (Auto) 9.4 % 07/20/18 05:55 Eos % (Auto) 1.2 % 07/20/18 05:55 Baso % (Auto) 0.3 % 07/20/18 05:55 Immature Gran # (Auto) 0.01 K/uL (0.00-0.02) 07/20/18 05:55 Neut # (Auto) 5.51 K/uL (1.4-6.5) 07/20/18 05:55 Lymph # (Auto) 0.68 K/uL (1.2-3.4) L 07/20/18 05:55 [place] # (Auto) 0.65 K/uL (0.11-0.59) H 07/20/18 05:55 Eos # (Auto) 0.08 K/uL (0-0.5) 07/20/18 05:55 Baso # (Auto) 0.02 K/uL (0-0.2) 07/20/18 05:55 PT 11.0 Seconds (9.0-12.0) 07/20/18 05:55 INR 1.1 (0.9-1.1) 07/20/18 05:55 ABG pH 7.27 (7.35-7.45) L 07/20/18 06:10 ABG pCO2 82 mmHg (35-46) H 07/20/18 06:10 ABG pO2 108 mm/Hg (80-95) H 07/20/18 06:10 ABG HCO3 37 mmol/L (19-24) H 07/20/18 06:10 ABG O2 Saturation 97.2 % (90-95) H 07/20/18 06:10 ABG Base Excess 6.9 mEq/L (-9-1.8) H 07/20/18 06:10 Liborio Test POS (Pos) 07/20/18 06:10 VBG pH 7.22 (7.36-7.41) L 07/20/18 08:45 VBG pCO2 97 mmHg (38-50) H 07/20/18 08:45 VBG pO2 45 mmHg 07/20/18 08:45 VBG HCO3 39 mmol/L 07/20/18 08:45 VBG O2 Saturation 74.0 % 07/20/18 08:45 VBG Base Excess 8.0 mEq/L 07/20/18 08:45 Barometric Pressure 734.7 mm/Hg 07/20/18 08:45 Oxygen Given 50% 07/20/18 06:10 Sodium 136 mmol/L (136-145) 07/20/18 05:55 Potassium 5.0 mmol/L (3.5-5.1) 07/20/18 05:55 Chloride 96 mmol/L (98-107) L 07/20/18 05:55 Carbon Dioxide 37 mmol/L (21-32) H 07/20/18 05:55 Anion Gap 3.0 (3-11) 07/20/18 05:55 BUN 18 mg/dl (7-18) 07/20/18 05:55 Creatinine 1.03 mg/dl (0.6-1.2) 07/20/18 05:55 Est Cr Clr Drug Dosing 50.4 ml/min 07/20/18 05:55 Est GFR ( Amer) 57.4 07/20/18 05:55 Est GFR (Non-Af Amer) 49.5 07/20/18 05:55 BUN/Creatinine Ratio 17.4 (10-20) 07/20/18 05:55 Glucose 117 mg/dl (70-99) H 07/20/18 05:55 POC Lactic Acid Bulmaro 0.61 mmol/L (0.90-1.70) L 07/20/18 06:01 Calcium 9.0 mg/dl (8.5-10.1) 07/20/18 05:55 Magnesium 2.1 mg/dl (1.8-2.4) 07/20/18 05:55 Total Bilirubin 0.6 mg/dl (0.1-1) 07/20/18 05:55 Direct Bilirubin 0.2 mg/dl (0-0.2) 07/20/18 05:55 AST 24 U/L (15-37) 07/20/18 05:55 ALT 22 U/L (12-78) 07/20/18 05:55 Alkaline Phosphatase 99 U/L (45-117) 07/20/18 05:55 Troponin I < 0.015 ng/ml (0-0.045) 07/20/18 05:55 NT-Pro-B Natriuret Pep 2690 pg/ml (0-1800) H 07/20/18 05:55 Total Protein 7.8 gm/dl (6.4-8.2) 07/20/18 05:55 Albumin 3.3 gm/dl (3.4-5.0) L 07/20/18 05:55 TSH 2.560 uIu/ml (0.300-4.500) 07/20/18 05:55 Diagnostic Findings CXR IMPRESSION: 1. Cardiomegaly and mild pulmonary vascular congestion 2. Small right pleural effusion 3. Persistent basilar opacities statistically atelectatic Code Status & VTE Plan Code Status Patient is a full code as per my discussion with Bronwyn Freedman (patient's court appointed guardian). VTE Prophylaxis Plan VTE Prophylaxis will be ordered: Yes Supervising Physician Co-Signing Physician Notes Patient is an 87-year-old female with multiple comorbidities- COPD, D CHF, Afib , CVA, HTN, hypothyroidism, CAD, dementia, AAA and other problems presented from [facility] for respiratory failure and AMS. Patient is currently obtunded and could not provide any history. Please review HPI for complete details. She was found to be hypoxic in 70s on room air. Patient ABG is suggestive of respiratory acidosis with CO2 retention. She was also noted to have mild pulmonary vascular congestion on CXR. Patient was placed on BiPAP and transfered to ICU for further management. Patient's respiratory failure is thought to be multifactorial secondary to COPD and diastolic CHF exacerbation. Patient is planned to be diuresed, started on bronchodilators, continue BiPAP, Solu-medrol. Appreciate Upper Cutter Out help.
[2018-07-20] MEDS ORDERED: ICU PROTOCOL FOR HYPERGLYCEMIA PRN (10:55)
[2018-07-20] MEDS ORDERED: PNEUMOCOCCAL POLYSACCHARIDES 25 MCG/0.5 ML VIAL/SYR IM ONE (11:30)
[2018-07-20] MEDS ORDERED: INFLUENZA VACCINE HIGH DOSE 65+ 0.5 ML SYR IM ONE (11:30)
[2018-07-20] MEDS ORDERED: INFLUENZA ADMINISTRATION CHARGE ONE (11:30)
[2018-07-20] MEDS ORDERED: PNEUMOCOCCAL ADMINISTRATION CHARGE ONE (11:30)
[2018-07-20] MEDS: METOPROLOL TARTRATE 1 MG/ML VIAL IV SCH ×2 (12:09→18:32)
--- NOTE | 2018-07-20 13:07 | Critical Care Consultation ---
Date of Consultation July 20, 2018 Assessment & Plan (1) Acute on chronic respiratory failure with hypoxia and hypercapnia: 1. Acute on chronic respiratory failure, hypercapnia, likely related to COPD and ongoing diastolic heart failure. 2. Diastolic heart failure and treated with diuretics. 3. COPD, gold level 2, home O2 dependent. She is [facility] resident. 4. A. fib, rate controlled. 5. Hypertension. Well controlled. 6. Hypothyroidism. Plan: 1. I will change the patient to AC mode on the BiPAP. 2. Hopefully the washout of the CO2 will improve her mental status. 3. The patient will need aggressive diuresis, and I would increase her dose and her frequency as well. 4. I would keep her n.p.o. for now. 5. Continue with her current medications, the patient is already on Eliquis for A. fib, I will started once the patient is able to take orals. 6. I would repeat the ABG later. 7. Continue with her home medications. 8. Bronchodilators. 9. Discussed with the daughter in details at the bedside. 10. Discussed with the staff in details. Critical care time spent with the patient was 45 minutes. History of Present Illness Reason for Consultation: Acute on chronic hypercapnic respiratory failure. Requesting Physician: Dr. Collier. Attending Physician: Nathan Collier MD History of Present Illness Dear Dr. Collier, Dear Shalonda: Thank you for the kind referral of Mrs. Huggins to pulmonary service. And critical care service. This is 87-year-old female [facility] a [facility] with a history of COPD, acute on chronic respiratory failure, diastolic heart failure, A. fib maintained on Eliquis, hypertension, history of CVA in the past and hypothyroidism, the patient was [facility] with altered mental status and near obtundation. The patient was found to have acute on chronic hypercapnia with pH of 7.27, patient started on the BiPAP and admitted to the ICU for further management. I have met with the daughter as the patient could not give me a review of system. According to the daughter, who saw her 2 days ago, she did not have somnolence but she was fatigued. No increased shortness of breath or no cough. No chest pain reported no abdominal pain no nausea or vomiting reported no choking episodes or aspiration reported either. No fever no constitutional symptoms. Denies any increased swelling in her lower extremities. The rest of her review of system was limited. The patient was started on the BiPAP for over 2 hours and her pH remains at the range of 7.25. The patient open her eyes but appeared to be very lethargic and goes back dozing again. Allergies Allergy/AdvReac Type Severity Reaction Status Date / Time Penicillins Allergy Unknown RXN TO Verified 07/20/18 06:19 AMOXICILLIN adhesive AdvReac Mild RXN TO TAPE Verified 07/20/18 06:19 Home Medications Home Medications Medication Instructions Recorded Confirmed Type acetaminophen 650 mg PO Q6H PRN MDD 3gm/24hr 07/20/18 07/20/18 History apixaban [Eliquis] 5 mg PO BID 07/20/18 07/20/18 History aspirin 81 mg PO DAILY 07/20/18 07/20/18 History atorvastatin [Lipitor] 40 mg PO DAILY 07/20/18 07/20/18 History bisacodyl [Dulcolax (bisacodyl)] 10 mg NC DAILY PRN 07/20/18 07/20/18 History cholecalciferol (vitamin D3) 4,000 unit PO DAILY 07/20/18 07/20/18 History [Vitamin D3] clotrimazole-betamethasone 1 applic TOPICAL BID 07/20/18 07/20/18 History [Lotrisone] diltiazem HCl 120 mg PO DAILY 07/20/18 07/20/18 History furosemide [Lasix] 40 mg PO DAILY 07/20/18 07/20/18 History ipratropium-albuterol 3 ml INHALATION Q4 PRN 07/20/18 07/20/18 History latanoprost 1 drp OPB PM 07/20/18 07/20/18 History levalbuterol HCl 0.63 mg INHALATION Q4 PRN 07/20/18 07/20/18 History levothyroxine 100 mcg PO DAILY 07/20/18 07/20/18 History magnesium hydroxide [Milk of 2,400 mg PO UD PRN 07/20/18 07/20/18 History Magnesia] metoprolol succinate 50 mg PO DAILY 07/20/18 07/20/18 History oxybutynin chloride 5 mg PO DAILY 07/20/18 07/20/18 History potassium chloride 20 meq PO DAILY 07/20/18 07/20/18 History sennosides-docusate sodium [Senna 1 tab PO BID 07/20/18 07/20/18 History with Docusate Sodium] sodium phosphates [Fleet Enema] 118 ml NC DAILY PRN 07/20/18 07/20/18 History Patient History Medical History Hypertension (Chronic) Cerebrovascular disease (Chronic) "ischemic stroke left basal ganglia 2009" Hypothyroidism (Chronic) Dementia (Chronic) "mild" Urinary incontinence (Chronic) COPD (chronic obstructive pulmonary disease) (Chronic) Carotid artery disease (Chronic) "carotid duplex [facility] 11/29/16: bilat plaque, moderate ECA stenosis bilat, no significant ICA stenosis" Symptomatic bradycardia (Chronic) "S/P pacemaker" Diastolic CHF (Chronic) Atrial fibrillation (Chronic) Surgical History S/P placement of cardiac pacemaker (Chronic) Family History Other Family history unobtainable due to patient's condition Social History Current Living Situation: Jail Current Living Situation Comment: [facility] Other Information That Helps Us Care for You: No Feels Safe at Home: Yes Safety Concerns: Feels Safe At This Time Smoking Status: Never smoker Hx Alcohol Use: No Hx Substance Use: No Beliefs That Will Affect Care: None Preferred Language: Welsh Communication Ability: Effective Zanjero Required: No Review of Systems Review of system was limited however most of her systems are asymptomatic but the patient is already somnolent as well. Physical Exam 2 Vital Signs (Past 24 Hours): Last Vital Signs Temp 36.7 C 07/20/18 12:00 Pulse 85 07/20/18 12:09 Resp 14 07/20/18 12:00 BP 146/100 H 07/20/18 12:09 Pulse Ox 94 07/20/18 12:00 Physical Exam: Morbid obesity, vital signs are stable, remains in A. fib with occasional PVCs monofocal S1-S2 regular rate and rhythm, distant breath sounds bilaterally, abdomen is benign, edema in the periphery. Results & Data Laboratory Results Her labs were reviewed with ABG showing CO2 retention, and pH of 7.25-7.27. The rest of her labs were within acceptable limits. Diagnostic Findings Chest x-ray showed bilateral pleural effusion right greater than right, cardiomegaly with pacemaker on the left subclavian area.
[2018-07-20] MEDS: methylPREDNISolone 40 MG in SYRINGE 0 ML IV SCH ×2 (13:59→21:19)
[2018-07-20] MEDS: FUROSEMIDE 40 MG in SYRINGE 0 ML IV SCH ×2 (13:59→21:32)
[2018-07-20] MEDS ORDERED: XOPENEX/ATROVENT 1.25mg/0.5MG NEB COMBO NEB SCH (14:00)
[2018-07-20] MEDS: IPRATROPIUM BROMIDE NEB SOLN 0.02% 2.5 ML VIAL INH SCH ×2 (14:10→19:45)
[2018-07-20] MEDS: LEVALBUTEROL 1.25MG/0.5ML NEB INH SCH ×2 (14:10→19:45)
[2018-07-20] MEDS: OXYBUTYNIN CHLORIDE XL 5 MG TABCR PO SCH (18:31)
[2018-07-20] MEDS: ASPIRIN 81 MG CHEW PO SCH (18:31)
[2018-07-20] MEDS: ATORVASTATIN 40 MG TAB PO SCH (18:32)
[2018-07-20] MEDS: APIXABAN 5 MG TABLET PO SCH ×2 (18:32→21:31)
[2018-07-20] MEDS: dilTIAZem ER 120 MG CAPCR PO SCH (18:32)
[2018-07-20] MEDS: LEVOTHYROXINE SODIUM 100 MCG TABLET PO SCH (18:32)
[2018-07-20] MEDS: LATANOPROST 0.005% OP SOLN 2.5 ML BTL OPB SCH (21:32)
[2018-07-21] MEDS: METOPROLOL TARTRATE 1 MG/ML VIAL IV SCH ×2 (00:21→06:05)
[2018-07-21] MEDS: IPRATROPIUM BROMIDE NEB SOLN 0.02% 2.5 ML VIAL INH SCH ×4 (02:07→20:06)
[2018-07-21] MEDS: LEVALBUTEROL 1.25MG/0.5ML NEB INH SCH ×4 (02:07→20:06)
[2018-07-21] MEDS: methylPREDNISolone 40 MG in SYRINGE 0 ML IV SCH ×3 (03:05→21:12)
[2018-07-21 04:40] LABS: Hematocrit (blood only) 39.2 % (37-47); Hemoglobin 12.2 g/dL (12.0-16.0); Mean Corpuscular Hgb Conc 31.1 g/dL (32-36); Mean Corpuscular Volume 96.3 fL (80-100); Mean Platelet Volume 8.9 fL (7.4-10.4); Platelet Count 213 K/uL (130-400); RDW Standard Deviation 52.7 fL (36.4-46.3); Red Blood Count 4.07 M/uL (4.2-5.4); White Blood Count 4.03 K/uL (4.8-10.8)
[2018-07-21 04:58] LABS: BUN Creatinine Ratio 22.5 (10-20); Calcium 8.9 mg/dl (8.5-10.1); Creatinine Clr Calc Pharmacy 48.2 ml/min; Est GFR (African American) 57.4; Est GFR (Non-African American) 49.5; Potassium 4.7 mmol/L (3.5-5.1)
[2018-07-21] MEDS: FUROSEMIDE 40 MG in SYRINGE 0 ML IV SCH (06:04)
[2018-07-21] MEDS: LEVOTHYROXINE SODIUM 100 MCG TABLET PO SCH (06:04)
[2018-07-21] MEDS ORDERED: LEVOTHYROXINE SODIUM 50 MCG in SYRINGE 0 ML IV SCH (09:00)
[2018-07-21] MEDS: OXYBUTYNIN CHLORIDE XL 5 MG TABCR PO SCH (09:03)
[2018-07-21] MEDS: ATORVASTATIN 40 MG TAB PO SCH (09:05)
[2018-07-21] MEDS: ASPIRIN 81 MG CHEW PO SCH (09:06)
[2018-07-21] MEDS: APIXABAN 5 MG TABLET PO SCH ×2 (09:06→21:13)
[2018-07-21] MEDS: dilTIAZem ER 120 MG CAPCR PO SCH (09:10)
[2018-07-21] MEDS ORDERED: METOPROLOL TARTRATE 1 MG/ML VIAL IV PRN (09:26)
--- NOTE | 2018-07-21 11:58 | Critical Care Progress Note ---
Date of Service July 21, 2018 Assessment & Plan (1) Acute on chronic respiratory failure with hypoxia and hypercapnia: 1. Acute on chronic respiratory failure, hypercapnia, likely related to COPD and ongoing diastolic heart failure. 2. Diastolic heart failure and treated with diuretics. 3. COPD, gold level 2, home O2 dependent. She is shelter resident. 4. A. fib, rate controlled. 5. Hypertension. Well controlled. 6. Hypothyroidism. Plan: 1. Keep the patient on nasal cannula, use the BiPAP only nocturnally every night. 2. Improved acute on chronic hypercapnic respiratory failure. 3. Change Lasix to 40 mg IV twice daily. Can be changed to oral as well. 4. Start oral intake. 5. Resume her home medications for A. fib including Eliquis. 6. Change Solu-Medrol to 40 mg IV every 12 hours. 7. Continue with her home medications. 8. Bronchodilators. 9. Change Lopressor to 5 mg IV every 6 hours as needed in addition to metoprolol succinate 50 mg p.o. daily starting today. 10. Discussed with the staff in details. 11. Transfer the patient to telemetry floor, discussed with Dr. Collier, appreciate his acceptance. Critical care time spent with the patient was 35 minutes. Subjective Fully awake following commands, confused and demented, appears to be much better today and she is verbalizing clearly, she denies any increased shortness of breath or chest pain, she is asking for her oral meds. She will be started on him. Physical Exam 2 Vital Signs (Past 24 Hours): Last Vital Signs Temp 37.1 C 07/21/18 07:00 Pulse 122 H 07/21/18 11:01 Resp 30 H 07/21/18 11:01 BP 93/77 L 07/21/18 11:01 Pulse Ox 90 07/21/18 10:01 Physical Exam: Vital signs are stable, remains in A. fib but rate controlled. S1-S2 irregularly irregular. Distant breath sounds. Abdomen is benign. Trace edema in the periphery. Neurologically difficult to assess as the patient has level of confusion and delirium. Results & Data Laboratory Results Her labs were reviewed as well and appears to be acceptable. Diagnostic Findings No new imaging.
[2018-07-21] MEDS ORDERED: BISACODYL 10 MG SUPP PR PRN (12:49)
--- NOTE | 2018-07-21 12:54 | Hospitalist Progress Note ---
Date of Service July 21, 2018 Assessment & Plan (1) Acute on chronic respiratory failure with hypoxia and hypercapnia: (2) COPD (chronic obstructive pulmonary disease): Acute on chronic respiratory failure with hypoxia and hypercapnia Respiratory acidosis Metabolic Encephalopathy --CXR:Cardiomegaly and mild pulmonary vascular congestion. Small right pleural effusion. Persistent basilar opacities statistically atelectatic -Continue Oxygen to keep Sats >88-90% Continue Duonebs Titrate down steroids as able BiPAP QHS Appreciate Public Information Coordinator Input (3) Diastolic CHF: Acute on chronic diastolic CHF exacerbation Received IV Lasix Continue PO lasix 40mg BID Titrate down diuretics as able Monitor electrolytes Monitor I/OS, daily weight (4) Atrial fibrillation: (5) S/P placement of cardiac pacemaker: Afib Continue metoprolol, diltiazem Lopressor PRN On Eliquis for anticoagulation (6) Hypertension: BP relatively low Continue current meds monitor BP (7) Cerebrovascular disease: Continue aspirin, statin (8) Hypothyroidism: Continue Levothyroxine Dementia: Reorient patient frequently (9) DVT prophylaxis: On Eliquis (10) Discharge planning issues: Patient's court appointed guardian, Bronwyn Freedman, was updated at time of admission -Emergency phone number: [phone] (not to be shared with patient's family) -Bronwyn reports that patient is to remain a full code at this time and that she is to be updated frequently with any condition changes. Subjective Patient is seen and examined at bedside Alert, awake today +Dementia, confusion She denied any dyspnea, chest pain Discussed with Public Information Coordinator No family at bedside Physical Exam 2 Vital Signs (Past 24 Hours): Last Vital Signs Temp 37.1 C 07/21/18 07:00 Pulse 122 H 07/21/18 11:01 Resp 30 H 07/21/18 11:01 BP 93/77 L 07/21/18 11:01 Pulse Ox 90 07/21/18 10:01 Physical Exam: Physical Exam: Vitals signs as noted above General Appearance:Obese, no apparent distress Head: normocephalic, Atraumatic Eyes: normal inspection, EOMI Neck: supple, Trachea midline Respiratory/Chest: Decreased breath sounds, + B/L wheezes Cardiovascular: Irregularly Irregular, No murmur Abdomen/GI:Soft, Non tender, Bowel sounds present Extremities/Musculoskelatal:normal inspection, 1+ B// LE edema Neurologic/Psych:grossly no focal neurological deficits, +dementia/confusion Skin: normal color, warm Results & Data Laboratory Results Short CBC 07/21/18 Range/Units 04:24 WBC 4.03 L (4.8-10.8) K/uL Hgb 12.2 (12.0-16.0) g/dL Hct 39.2 (37-47) % Plt Count 213 (130-400) K/uL BMP 07/21/18 04:24 Sodium 139 Potassium 4.7 Chloride 96 L Carbon Dioxide 38 H BUN 23 H Creatinine 1.03 Glucose 131 H Calcium 8.9 Medications Administered Current Inpatient Medications Apixaban (Eliquis) 5 mg PO BID MONICA Stop: 08/19/18 10:54 Last Admin: 07/21/18 09:06 Dose: 5 mg Aspirin (Aspirin) 81 mg PO DAILY MONICA Stop: 08/19/18 10:54 Last Admin: 07/21/18 09:06 Dose: 81 mg Atorvastatin Calcium (Lipitor) 40 mg PO DAILY MONICA Stop: 08/19/18 10:54 Last Admin: 07/21/18 09:05 Dose: 40 mg Bisacodyl (Dulcolax) 10 mg MT DAILY PRN PRN Reason: Constipation Stop: 08/20/18 12:48 Diltiazem HCl (Tiazac) 120 mg PO DAILY MONICA Stop: 08/19/18 10:54 Last Admin: 07/21/18 09:10 Dose: 120 mg Furosemide (Lasix) 40 mg PO [id number] MONICA Stop: 08/20/18 16:59 Methylprednisolone 40 mg/ (Syringe) 0.64 mls @ 1.5 mls/min IV Q12H MONICA Stop: 08/20/18 19:59 Ipratropium Byron (Atrovent 0.02% 0.5mg/2.5ml) 0.5 mg INH Q6R MONICA Stop: 08/19/18 10:54 Last Admin: 07/21/18 07:01 Dose: 0.5 mg Ipratropium Byron (Atrovent 0.02% 0.5mg/2.5ml) 0.5 mg INH Q2H PRN PRN Reason: SOB/wheezing Stop: 08/19/18 11:11 Latanoprost (Xalatan Oph) 1 drops OPB PM MONICA Stop: 08/19/18 20:59 Last Admin: 07/20/18 21:32 Dose: 1 drops Levalbuterol HCl (Xopenex 1.25mg/0.5ml Neb) 1.25 mg INH Q6R [facility] Stop: 08/19/18 10:54 Last Admin: 07/21/18 07:01 Dose: 1.25 mg Levalbuterol HCl (Xopenex 1.25mg/0.5ml Neb) 1.25 mg INH Q2H PRN PRN Reason: SOB/wheezing Stop: 08/19/18 11:11 Levothyroxine Sodium (Synthroid) 100 mcg PO DAILYBB [facility] Stop: 08/19/18 11:14 Last Admin: 07/21/18 06:04 Dose: 100 mcg Metoprolol Succinate (Toprol Xl) 50 mg PO QAM [facility] Stop: 08/21/18 08:59 Metoprolol Tartrate (Lopressor) 5 mg IV Q6 PRN PRN Reason: hr>110 Stop: 08/19/18 11:59 Miscellaneous (Icu Protocol For Hyperglycemia) 1 ea N/A PRN PRN; Protocol PRN Reason: Hyperglycemia Protocol Stop: 07/22/18 10:54 Oxybutynin Chloride (Ditropan Xl) 5 mg PO DAILY [facility] Stop: 08/19/18 10:54 Last Admin: 07/21/18 09:03 Dose: 5 mg Senna/Docusate Sodium (Senokot S) 1 tab PO BID [facility] Stop: 08/20/18 20:59
[2018-07-21] MEDS ORDERED: methylPREDNISolone 40 MG in SYRINGE 0 ML IV SCH (14:00)
[2018-07-21] MEDS: FUROSEMIDE 40 MG TAB PO SCH (17:00)
[2018-07-21] MEDS: IPRATROPIUM BROMIDE NEB SOLN 0.02% 2.5 ML VIAL INH PRN ×2 (17:58→21:37)
[2018-07-21] MEDS: LEVALBUTEROL 1.25MG/0.5ML NEB INH PRN ×2 (17:58→21:37)
[2018-07-21] MEDS: LATANOPROST 0.005% OP SOLN 2.5 ML BTL OPB SCH (21:13)
[2018-07-21] MEDS: DOCUSATE SODIUM/SENNA 50/8.6MG TAB PO SCH (21:13)
[2018-07-22] MEDS: IPRATROPIUM BROMIDE NEB SOLN 0.02% 2.5 ML VIAL INH SCH ×4 (02:12→18:50)
[2018-07-22] MEDS: LEVALBUTEROL 1.25MG/0.5ML NEB INH SCH ×4 (02:12→18:50)
[2018-07-22] MEDS: LEVOTHYROXINE SODIUM 100 MCG TABLET PO SCH (05:49)
[2018-07-22 08:18] LABS: BUN Creatinine Ratio 26.5 (10-20); Calcium 9.1 mg/dl (8.5-10.1); Creatinine Clr Calc Pharmacy 37.6 ml/min; Est GFR (African American) 43.3; Est GFR (Non-African American) 37.4; Potassium 4.1 mmol/L (3.5-5.1)
[2018-07-22] MEDS: dilTIAZem ER 120 MG CAPCR PO SCH (08:45)
[2018-07-22] MEDS: METOPROLOL SUCC 50MG EXT REL TAB PO SCH (08:45)
[2018-07-22] MEDS: OXYBUTYNIN CHLORIDE XL 5 MG TABCR PO SCH (08:45)
[2018-07-22] MEDS: ATORVASTATIN 40 MG TAB PO SCH (08:45)
[2018-07-22] MEDS: APIXABAN 5 MG TABLET PO SCH ×2 (08:46→20:32)
[2018-07-22] MEDS: DOCUSATE SODIUM/SENNA 50/8.6MG TAB PO SCH ×2 (08:46→20:37)
[2018-07-22] MEDS: FUROSEMIDE 40 MG TAB PO SCH ×2 (08:46→16:17)
[2018-07-22] MEDS: ASPIRIN 81 MG CHEW PO SCH (08:46)
[2018-07-22] MEDS: methylPREDNISolone 40 MG in SYRINGE 0 ML IV SCH ×2 (08:47→20:31)
[2018-07-22 09:30] LABS: iSTAT Allen Test Pass; iSTAT Arterial Blood Gas HCO3 38 meg/L (19-24); iSTAT Carbon Dioxide > 40 mEq/l (24-31); iSTAT FiO2 50 %
--- NOTE | 2018-07-22 19:39 | Hospitalist Progress Note ---
Date of Service July 22, 2018 Assessment & Plan (1) Acute on chronic respiratory failure with hypoxia and hypercapnia: (2) COPD (chronic obstructive pulmonary disease): Acute on chronic respiratory failure with hypoxia and hypercapnia Acute COPD Exacerbation Respiratory acidosis Metabolic Encephalopathy --CXR:Cardiomegaly and mild pulmonary vascular congestion. Small right pleural effusion. 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 Cr: 1.30 today Secondary to diuretics monitor renal function avoid nephrotoxic agents as able (4) Atrial fibrillation: (5) S/P placement of cardiac pacemaker: Afib Continue metoprolol, diltiazem Lopressor PRN On Eliquis for anticoagulation Tachycardic today (6) Hypertension: Elevated today Continue current meds monitor BP (7) Cerebrovascular disease: Continue aspirin, statin (8) Hypothyroidism: Continue Levothyroxine Dementia: Reorient patient frequently (9) DVT prophylaxis: On Eliquis (10) Discharge planning issues: Patient's court appointed guardian, Bronwyn Freedman, was updated at time of admission -Emergency phone number: [phone] (not to be shared with patient's family) -Bronwyn reports that patient is to remain a full code at this time and that she is to be updated frequently with any condition changes. Subjective Patient is seen and examined at bedside Feels better today wheezing on exam Denies dyspnea, chest pain, dizziness +Dementia No family at bedside Physical Exam 2 Vital Signs (Past 24 Hours): Last Vital Signs Temp 36.9 C 07/22/18 19:06 Pulse 114 H 07/22/18 19:06 Resp 22 07/22/18 19:06 BP 154/113 H 07/22/18 19:06 Pulse Ox 91 07/22/18 19:06 Physical Exam: Physical Exam: Vitals signs as noted above General Appearance:Obese, no apparent distress Head: normocephalic, Atraumatic Eyes: normal inspection, EOMI Neck: supple, Trachea midline Respiratory/Chest: Decreased breath sounds, + B/L wheezes Cardiovascular: Irregularly Irregular, No murmur Abdomen/GI:Soft, Non tender, Bowel sounds present Extremities/Musculoskelatal:normal inspection, 1+ B// LE edema Neurologic/Psych:grossly no focal neurological deficits, +dementia/confusion Skin: normal color, warm Results & Data Laboratory Results [facility] 07/22/18 06:57 Sodium 137 Potassium 4.1 Chloride 94 L Carbon Dioxide 34 H BUN 35 H D Creatinine 1.30 H Glucose 150 H Calcium 9.1
[2018-07-22] MEDS: LATANOPROST 0.005% OP SOLN 2.5 ML BTL OPB SCH (20:33)
[2018-07-23] MEDS: IPRATROPIUM BROMIDE NEB SOLN 0.02% 2.5 ML VIAL INH SCH ×4 (02:04→19:34)
[2018-07-23] MEDS: LEVALBUTEROL 1.25MG/0.5ML NEB INH SCH ×4 (02:07→19:35)
[2018-07-23 05:44] LABS: Hematocrit (blood only) 39.9 % (37-47); Hemoglobin 12.1 g/dL (12.0-16.0); Mean Corpuscular Hgb Conc 30.3 g/dL (32-36); Mean Corpuscular Volume 99.3 fL (80-100); Mean Platelet Volume 8.9 fL (7.4-10.4); Platelet Count 192 K/uL (130-400); RDW Coefficient of Variation 15.6 % (11.5-14.5); RDW Standard Deviation 56.7 fL (36.4-46.3); Red Blood Count 4.02 M/uL (4.2-5.4); White Blood Count 5.89 K/uL (4.8-10.8)
[2018-07-23] MEDS: LEVOTHYROXINE SODIUM 100 MCG TABLET PO SCH (06:04)
[2018-07-23 06:19] LABS: BUN Creatinine Ratio 31.4 (10-20); Calcium 8.9 mg/dl (8.5-10.1); Creatinine Clr Calc Pharmacy 38.5 ml/min; Est GFR (African American) 44.6; Est GFR (Non-African American) 38.5; Magnesium 2.3 mg/dl (1.8-2.4); Potassium 4.5 mmol/L (3.5-5.1)
[2018-07-23] MEDS: OXYBUTYNIN CHLORIDE XL 5 MG TABCR PO SCH (08:53)
[2018-07-23] MEDS: DOCUSATE SODIUM/SENNA 50/8.6MG TAB PO SCH ×2 (08:53→20:11)
[2018-07-23] MEDS: METOPROLOL SUCC 50MG EXT REL TAB PO SCH (08:53)
[2018-07-23] MEDS: dilTIAZem ER 120 MG CAPCR PO SCH (08:53)
[2018-07-23] MEDS: APIXABAN 5 MG TABLET PO SCH ×2 (08:53→20:11)
[2018-07-23] MEDS: ATORVASTATIN 40 MG TAB PO SCH (08:53)
[2018-07-23] MEDS: FUROSEMIDE 40 MG TAB PO SCH ×2 (08:53→16:13)
[2018-07-23] MEDS: methylPREDNISolone 40 MG in SYRINGE 0 ML IV SCH (08:54)
[2018-07-23] MEDS: ASPIRIN 81 MG CHEW PO SCH (08:57)
[2018-07-23 13:59] LABS: Appearance Urine Turbid (Clear); Bacteria Urine Automated 4+ (Negative); Bilirubin Urine Negative (Negative); Color Urine Yellow; Epithelial Cell Urine Auto >30 /lpf (0-5); Glucose Urine UA Negative (Negative); Ketones Urine Negative (Negative); Leukocyte Esterase Urine 2+ (Negative); Nitrite Urine Positive (Negative); Protein Urine Negative (Negative); Specific Gravity Urine 1.011 (1.000-1.030); Urobilinogen Urine Negative (Negative); WBC Urine Automated >30 /hpf (0-5); pH Urine 8.5 (4.5-7.5)
[2018-07-23 14:19] LABS: Amorphous Sediment Urine Present (None Prsent); Cast Urine Automated 0 /lpf (0-5); Triple Phosphate Crystal Urine Present (None Prsent)
[2018-07-23 15:37] LABS: HCO3 ABG 42 mmol/L (19-24); Oxygen Saturation ABG 89.9 % (90-95); PCO2 ABG 77 mmHg (35-46); PO2 ABG 58 mm/Hg (80-95); pH ABG 7.36 (7.35-7.45)
[2018-07-23 15:38] LABS: Allen Test POS (Pos)
[2018-07-23] MEDS: cefTRIAXone SODIUM 1,000 MG in DEXTROSE 5% 50 ML IV SCH (16:12)
--- NOTE | 2018-07-23 19:06 | Hospitalist Progress Note ---
Date of Service July 23, 2018 Assessment & Plan (1) Acute on chronic respiratory failure with hypoxia and hypercapnia: (2) COPD (chronic obstructive pulmonary disease): Acute on chronic respiratory failure with hypoxia and hypercapnia Acute COPD Exacerbation Respiratory acidosis Metabolic Encephalopathy --CXR:Cardiomegaly and mild pulmonary vascular congestion. Small right pleural effusion. 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 Cr: 1.27 today Secondary to diuretics monitor renal function avoid nephrotoxic agents as able (4) Atrial fibrillation: (5) S/P placement of cardiac pacemaker: Afib Continue metoprolol, diltiazem Lopressor PRN On Eliquis for anticoagulation (6) Hypertension: Stable Continue current meds monitor BP (7) Cerebrovascular disease: Continue aspirin, statin (8) Hypothyroidism: Continue Levothyroxine Dementia: Reorient patient frequently (9) DVT prophylaxis: On Eliquis (10) Discharge planning issues: Patient's court appointed guardian, Bronwyn Freedman, was updated at time of admission -Emergency phone number: [phone] (not to be shared with patient's family):: :Direct No: [phone] [id number] -Bronwyn reports that patient is to remain a full code at this time and that she is to be updated frequently with any condition changes. Subjective Patient is seen and examined at bedside Patient is drowsy today Couldn't provide any good history ABG shows elevated CO2 levels UA is suggestive of UTI Started on ceftriaxone Could not update court appointed guardian today-- direct number: [phone] [id number] Denies chest pain, dizziness +Dementia No family at bedside Physical Exam 2 Vital Signs (Past 24 Hours): Last Vital Signs Temp 37.3 C 07/23/18 18:45 Pulse 104 H 07/23/18 18:45 Resp 20 07/23/18 18:45 BP 117/59 L 07/23/18 18:45 Pulse Ox 93 07/23/18 18:45 Physical Exam: Physical Exam: Vitals signs as noted above General Appearance:Obese, no apparent distress Head: normocephalic, Atraumatic Eyes: normal inspection, EOMI Neck: supple, Trachea midline Respiratory/Chest: Decreased breath sounds, + B/L wheezes/crackles Cardiovascular: Irregularly Irregular, No murmur Abdomen/GI:Soft, Non tender, Bowel sounds present Extremities/Musculoskelatal:normal inspection, 1+ B// LE edema Neurologic/Psych:grossly no focal neurological deficits, +dementia/confusion Skin: normal color, warm Results & Data Laboratory Results Short CBC 07/23/18 Range/Units 05:20 WBC 5.89 (4.8-10.8) K/uL Hgb 12.1 (12.0-16.0) g/dL Hct 39.9 (37-47) % Plt Count 192 (130-400) K/uL BMP 07/23/18 05:20 Sodium 137 Potassium 4.5 Chloride 96 L Carbon Dioxide 36 H BUN 40 H Creatinine 1.27 H Glucose 146 H Calcium 8.9 Urine 07/23/18 Range/Units Unknown Urine Color Yellow Urine Appearance Turbid H (Clear) Urine pH 8.5 H (4.5-7.5) Ur Specific [place] 1.011 (1.000-1.030) Urine Protein Negative (Negative) Urine Glucose (UA) Negative (Negative)
[2018-07-23] MEDS: LATANOPROST 0.005% OP SOLN 2.5 ML BTL OPB SCH (20:11)
[2018-07-24] MEDS: LEVALBUTEROL 1.25MG/0.5ML NEB INH SCH ×4 (01:29→20:02)
[2018-07-24] MEDS: IPRATROPIUM BROMIDE NEB SOLN 0.02% 2.5 ML VIAL INH SCH ×4 (01:29→20:01)
[2018-07-24] MEDS: LEVOTHYROXINE SODIUM 100 MCG TABLET PO SCH (05:49)
[2018-07-24 07:22] LABS: Hemoglobin 12.7 g/dL (12.0-16.0); Mean Corpuscular Hgb Conc 30.2 g/dL (32-36); Mean Corpuscular Volume 97.9 fL (80-100); Mean Platelet Volume 9.3 fL (7.4-10.4); Platelet Count 195 K/uL (130-400); RDW Coefficient of Variation 15.4 % (11.5-14.5); RDW Standard Deviation 55.2 fL (36.4-46.3); Red Blood Count 4.29 M/uL (4.2-5.4); White Blood Count 7.71 K/uL (4.8-10.8)
[2018-07-24 08:07] LABS: BUN Creatinine Ratio 37.2 (10-20); Calcium 8.9 mg/dl (8.5-10.1); Creatinine Clr Calc Pharmacy 42.5 ml/min; Est GFR (African American) 49.7; Est GFR (Non-African American) 42.9; Potassium 4.2 mmol/L (3.5-5.1)
[2018-07-24] MEDS: ATORVASTATIN 40 MG TAB PO SCH (08:27)
[2018-07-24] MEDS: OXYBUTYNIN CHLORIDE XL 5 MG TABCR PO SCH (08:27)
[2018-07-24] MEDS: APIXABAN 5 MG TABLET PO SCH ×2 (08:27→20:05)
[2018-07-24] MEDS: FUROSEMIDE 40 MG TAB PO SCH ×2 (08:27→16:13)
[2018-07-24] MEDS: METOPROLOL SUCC 50MG EXT REL TAB PO SCH (08:27)
[2018-07-24] MEDS: dilTIAZem ER 120 MG CAPCR PO SCH (08:27)
[2018-07-24] MEDS: methylPREDNISolone 40 MG in SYRINGE 0 ML IV SCH (08:27)
[2018-07-24] MEDS: DOCUSATE SODIUM/SENNA 50/8.6MG TAB PO SCH ×2 (08:28→20:04)
[2018-07-24] MEDS: ASPIRIN 81 MG CHEW PO SCH (09:04)
[2018-07-24] MEDS: cefTRIAXone SODIUM 1,000 MG in DEXTROSE 5% 50 ML IV SCH (16:13)
[2018-07-24] MEDS: LATANOPROST 0.005% OP SOLN 2.5 ML BTL OPB SCH (20:06)
--- NOTE | 2018-07-24 21:57 | Hospitalist Progress Note ---
Date of Service July 24, 2018 Assessment & Plan (1) Acute on chronic respiratory failure with hypoxia and hypercapnia: Presented with acute on chronic hypoxic and hypercapnic respiratory failure. Underlying COPD and CHF; specific problems addressed below. Continue supplemental oxygen and BiPAP. (2) COPD (chronic obstructive pulmonary disease): O2 dependent COPD with exacerbation. Continue bronchodilators. Continue steroids-taper as tolerated. (3) Diastolic CHF: Acute on chronic left ventricular diastolic heart failure. Received diuretics with improvement. Continue furosemide. (4) Atrial fibrillation: Continue metoprolol and diltiazem. Continue anticoagulation with apixaban. (5) Hypertension: Continue metoprolol and diltiazem. (6) Cerebrovascular disease: Continue aspirin and statin. (7) Hypothyroidism: Continue levothyroxine. (8) Dementia: Monitor for delirium. (9) DVT prophylaxis: Nonambulatory. Continue apixaban. (10) Discharge planning issues: Anticipated return to [facility] when medically stable. Subjective Recheck for respiratory failure and other problems. Patient seen in her room around 1925. Daughter visiting. Somnolent at times, does better when she wears her BiPAP but needs encouragement to wear it. No fever. Occasional nonproductive cough. No chest pain. No nausea, vomiting, diarrhea. Physical Exam 2 Vital Signs (Past 24 Hours): Last Vital Signs Temp 36.8 C 07/24/18 19:00 Pulse 78 07/24/18 20:22 Resp 22 07/24/18 20:22 BP 129/65 07/24/18 19:00 Pulse Ox 91 07/24/18 20:22 Constitutional: no acute distress Respiratory: Auscultation: + wheezes (diffuse, mild) Cardiovascular: Rate/Rhythm: regular rate and regular rhythm Heart Sounds: no gallop Extremities: + edema (trace pretibial) Gastrointestinal (Abdomen): Inspection/Auscultation: normal bowel sounds Percussion/Palpation: abdomen soft; abdomen nontender Musculoskeletal: Extremities: no cyanosis Skin: no rashes, warm and dry Psychiatric: Orientation: alert, oriented to person and oriented to place Results & Data Laboratory Results Short CBC 07/24/18 Range/Units 06:55 WBC 7.71 (4.8-10.8) K/uL Hgb 12.7 (12.0-16.0) g/dL Hct 42.0 (37-47) % Plt Count 195 (130-400) K/uL [facility] 07/24/18 06:55 Sodium 139 Potassium 4.2 Chloride 95 L Carbon Dioxide 39 H BUN 43 H Creatinine 1.16 Glucose 134 H Calcium 8.9
[2018-07-25] MEDS: IPRATROPIUM BROMIDE NEB SOLN 0.02% 2.5 ML VIAL INH SCH ×4 (01:49→19:33)
[2018-07-25] MEDS: LEVALBUTEROL 1.25MG/0.5ML NEB INH SCH ×4 (01:49→19:37)
[2018-07-25] MEDS: LEVOTHYROXINE SODIUM 100 MCG TABLET PO SCH (05:54)
[2018-07-25] MEDS: FUROSEMIDE 40 MG TAB PO SCH ×2 (07:52→16:57)
[2018-07-25] MEDS: METOPROLOL SUCC 50MG EXT REL TAB PO SCH (07:52)
[2018-07-25] MEDS: ATORVASTATIN 40 MG TAB PO SCH (07:52)
[2018-07-25] MEDS: OXYBUTYNIN CHLORIDE XL 5 MG TABCR PO SCH (07:52)
[2018-07-25] MEDS: dilTIAZem ER 120 MG CAPCR PO SCH (07:52)
[2018-07-25] MEDS: DOCUSATE SODIUM/SENNA 50/8.6MG TAB PO SCH ×2 (07:52→20:19)
[2018-07-25] MEDS: ASPIRIN 81 MG CHEW PO SCH (07:52)
[2018-07-25] MEDS: APIXABAN 5 MG TABLET PO SCH ×2 (07:52→20:20)
[2018-07-25] MEDS: methylPREDNISolone 40 MG in SYRINGE 0 ML IV SCH (08:22)
[2018-07-25 08:31] LABS: Calcium 8.6 mg/dl (8.5-10.1); Creatinine Clr Calc Pharmacy 41.9 ml/min; Est GFR (African American) 48.7; Potassium 4.2 mmol/L (3.5-5.1)
[2018-07-25] MEDS: cefTRIAXone SODIUM 1,000 MG in DEXTROSE 5% 50 ML IV SCH (15:43)
--- NOTE | 2018-07-25 19:16 | Hospitalist Progress Note ---
Date of Service July 25, 2018 Assessment & Plan (1) Acute on chronic respiratory failure with hypoxia and hypercapnia: Presented with acute on chronic hypoxic and hypercapnic respiratory failure. Underlying COPD and CHF; specific problems addressed below. Continue supplemental oxygen and BiPAP. (2) COPD (chronic obstructive pulmonary disease): O2 dependent COPD with exacerbation. Received IV methylprednisolone; transition or oral therapy with prednisone. Continue bronchodilators. (3) Diastolic CHF: Acute on chronic left ventricular diastolic heart failure. Received diuretics with improvement. Continue furosemide. (4) Atrial fibrillation: Continue metoprolol and diltiazem. Continue anticoagulation with apixaban. (5) Hypertension: Continue metoprolol and diltiazem. (6) Cerebrovascular disease: Continue aspirin and statin. (7) Hypothyroidism: Continue levothyroxine. (8) Dementia: Monitor for delirium. (9) DVT prophylaxis: Nonambulatory. Continue apixaban. (10) Discharge planning issues: Anticipated return to [facility] when medically stable. Subjective Recheck for respiratory failure and other problems. Patient seen in her room around 1050. No new problems. No fever. Occasional nonproductive cough. No chest pain. No nausea, vomiting, diarrhea. Physical Exam 2 Vital Signs (Past 24 Hours): Last Vital Signs Temp 36.5 C 07/25/18 14:47 Pulse 80 07/25/18 16:00 Resp 20 07/25/18 15:30 BP 148/76 H 07/25/18 14:47 Pulse Ox 91 07/25/18 15:30 Constitutional: no acute distress Respiratory: Auscultation: + wheezes (diffuse, mild) Cardiovascular: Rate/Rhythm: + abnormal rhythm (irregular) Heart Sounds: no gallop Extremities: + edema (1+ pretibial) Gastrointestinal (Abdomen): Inspection/Auscultation: normal bowel sounds Percussion/Palpation: abdomen soft; abdomen nontender Musculoskeletal: Extremities: no cyanosis Skin: no rashes, warm and dry Psychiatric: Orientation: alert, oriented to person and oriented to place
[2018-07-25] MEDS: LATANOPROST 0.005% OP SOLN 2.5 ML BTL OPB SCH (20:18)
[2018-07-26] MEDS: LEVALBUTEROL 1.25MG/0.5ML NEB INH SCH ×4 (01:50→19:23)
[2018-07-26] MEDS: IPRATROPIUM BROMIDE NEB SOLN 0.02% 2.5 ML VIAL INH SCH ×4 (01:50→19:23)
[2018-07-26] MEDS: ASPIRIN 81 MG CHEW PO SCH (07:47)
[2018-07-26] MEDS: predniSONE 20 MG TAB PO SCH (07:47)
[2018-07-26] MEDS: FUROSEMIDE 40 MG TAB PO SCH ×2 (07:47→16:23)
[2018-07-26] MEDS: ATORVASTATIN 40 MG TAB PO SCH (07:47)
[2018-07-26] MEDS: LEVOTHYROXINE SODIUM 100 MCG TABLET PO SCH (07:48)
[2018-07-26] MEDS: DOCUSATE SODIUM/SENNA 50/8.6MG TAB PO SCH ×2 (07:48→21:14)
[2018-07-26] MEDS: dilTIAZem ER 120 MG CAPCR PO SCH (07:48)
[2018-07-26] MEDS: METOPROLOL SUCC 50MG EXT REL TAB PO SCH (07:48)
[2018-07-26] MEDS: APIXABAN 5 MG TABLET PO SCH ×2 (07:48→21:27)
[2018-07-26] MEDS: OXYBUTYNIN CHLORIDE XL 5 MG TABCR PO SCH (07:48)
[2018-07-26] MEDS: cefTRIAXone SODIUM 1,000 MG in DEXTROSE 5% 50 ML IV SCH (16:22)
--- NOTE | 2018-07-26 18:09 | Hospitalist Progress Note ---
Date of Service July 26, 2018 Assessment & Plan (1) Acute on chronic respiratory failure with hypoxia and hypercapnia: Presented with acute on chronic hypoxic and hypercapnic respiratory failure. Underlying COPD and CHF; specific problems addressed below. Continue supplemental oxygen and BiPAP. (2) COPD (chronic obstructive pulmonary disease): O2 dependent COPD with exacerbation. Received IV methylprednisolone; transitioned to oral therapy with prednisone. Continue bronchodilators. (3) Diastolic CHF: Acute on chronic left ventricular diastolic heart failure. Received diuretics with improvement. Continue furosemide. (4) Atrial fibrillation: Continue metoprolol and diltiazem. Continue anticoagulation with apixaban. (5) Hypertension: Continue metoprolol and diltiazem. (6) Cerebrovascular disease: Continue aspirin and statin. (7) Hypothyroidism: Continue levothyroxine. (8) Dementia: Monitor for delirium. (9) DVT prophylaxis: Nonambulatory. Continue apixaban. (10) Discharge planning issues: Anticipated return to [facility] when medically stable. Daughter visiting this afternoon and given update. She is requesting repeat PT / OT evals. Subjective Recheck for respiratory failure and other problems. Patient seen in her room around 1040. Feels better. More interactive. Would like to get up in chair today. No new problems. No fever. Occasional nonproductive cough. No chest pain. No nausea, vomiting, diarrhea. Physical Exam 2 Vital Signs (Past 24 Hours): Last Vital Signs Temp 36.6 C 07/26/18 15:09 Pulse 79 07/26/18 15:09 Resp 18 07/26/18 15:09 BP 119/49 L 07/26/18 15:09 Pulse Ox 93 07/26/18 15:09 Constitutional: no acute distress Respiratory: Auscultation: + wheezes (diffuse, mild) Cardiovascular: Rate/Rhythm: + abnormal rhythm (irregular) Heart Sounds: no gallop Extremities: + edema (1+ pretibial) Gastrointestinal (Abdomen): Inspection/Auscultation: normal bowel sounds Percussion/Palpation: abdomen soft; abdomen nontender Musculoskeletal: Extremities: no cyanosis Skin: no rashes, warm and dry Psychiatric: Orientation: alert, oriented to person and oriented to place Genitourinary: + abnormal external appearance (De Oliveira cath)
[2018-07-26] MEDS: LATANOPROST 0.005% OP SOLN 2.5 ML BTL OPB SCH (21:14)
[2018-07-27] MEDS: IPRATROPIUM BROMIDE NEB SOLN 0.02% 2.5 ML VIAL INH SCH ×4 (02:02→18:57)
[2018-07-27] MEDS: LEVALBUTEROL 1.25MG/0.5ML NEB INH SCH ×4 (02:02→18:57)
[2018-07-27] MEDS: APIXABAN 5 MG TABLET PO SCH ×2 (08:33→19:37)
[2018-07-27] MEDS: dilTIAZem ER 120 MG CAPCR PO SCH (08:33)
[2018-07-27] MEDS: ASPIRIN 81 MG CHEW PO SCH (08:33)
[2018-07-27] MEDS: METOPROLOL SUCC 50MG EXT REL TAB PO SCH (08:33)
[2018-07-27] MEDS: DOCUSATE SODIUM/SENNA 50/8.6MG TAB PO SCH ×2 (08:33→19:37)
[2018-07-27] MEDS: FUROSEMIDE 40 MG TAB PO SCH ×2 (08:33→16:09)
[2018-07-27] MEDS: LEVOTHYROXINE SODIUM 100 MCG TABLET PO SCH (08:33)
[2018-07-27] MEDS: predniSONE 20 MG TAB PO SCH (08:33)
[2018-07-27] MEDS: ROSUVASTATIN CALCIUM 20 MG TAB PO SCH (09:52)
[2018-07-27] MEDS: cefTRIAXone SODIUM 1,000 MG in DEXTROSE 5% 50 ML IV SCH (16:09)
[2018-07-27] MEDS: LATANOPROST 0.005% OP SOLN 2.5 ML BTL OPB SCH (19:36)
--- NOTE | 2018-07-27 21:14 | Hospitalist Progress Note ---
Date of Service July 27, 2018 Assessment & Plan (1) Acute on chronic respiratory failure with hypoxia and hypercapnia: Presented with acute on chronic hypoxic and hypercapnic respiratory failure. Underlying COPD and CHF; specific problems addressed below. Continue supplemental oxygen and BiPAP. (2) COPD (chronic obstructive pulmonary disease): O2 dependent COPD with exacerbation. Received IV methylprednisolone; transitioned to oral therapy with prednisone. Continue bronchodilators. (3) Diastolic CHF: Acute on chronic left ventricular diastolic heart failure. Received diuretics with improvement. Continue furosemide. (4) Atrial fibrillation: Continue metoprolol and diltiazem. Continue anticoagulation with apixaban. (5) Hypertension: Continue metoprolol and diltiazem. (6) Cerebrovascular disease: Continue aspirin and statin. (7) Hypothyroidism: Continue levothyroxine. (8) Dementia: Monitor for delirium. (9) DVT prophylaxis: Nonambulatory. Continue apixaban. (10) Discharge planning issues: Anticipated return to [facility] when medically stable. Will need BiPAP for chronic resp failure. Case Management consulted. Subjective Recheck for respiratory failure and other problems. Patient seen in her room around 1750. Doing fairly well. No new problems. No fever. Occasional nonproductive cough. No chest pain. No nausea, vomiting, diarrhea. Physical Exam 2 Vital Signs (Past 24 Hours): Last Vital Signs Temp 36.6 C 07/27/18 19:25 Pulse 86 07/27/18 19:25 Resp 20 07/27/18 19:25 BP 120/61 07/27/18 19:25 Pulse Ox 88 L 07/27/18 19:25 Constitutional: no acute distress Respiratory: Auscultation: + wheezes (diffuse, mild) Cardiovascular: Rate/Rhythm: regular rate; + abnormal rhythm (irregular) Heart Sounds: no gallop Extremities: + edema (1+ pretibial) Gastrointestinal (Abdomen): Inspection/Auscultation: normal bowel sounds Percussion/Palpation: abdomen soft; abdomen nontender Musculoskeletal: Extremities: no cyanosis Skin: no rashes, warm and dry Psychiatric: Orientation: alert, oriented to person and oriented to place Genitourinary: + abnormal external appearance (De Oliveira cath)
[2018-07-28] MEDS: IPRATROPIUM BROMIDE NEB SOLN 0.02% 2.5 ML VIAL INH SCH ×7 (01:57→18:58)
[2018-07-28] MEDS: LEVALBUTEROL 1.25MG/0.5ML NEB INH SCH ×7 (01:57→18:58)
[2018-07-28] MEDS: LEVOTHYROXINE SODIUM 100 MCG TABLET PO SCH (04:50)
[2018-07-28] MEDS: predniSONE 20 MG TAB PO SCH (10:05)
[2018-07-28] MEDS: METOPROLOL SUCC 50MG EXT REL TAB PO SCH (10:05)
[2018-07-28] MEDS: FUROSEMIDE 40 MG TAB PO SCH ×2 (10:05→16:33)
[2018-07-28] MEDS: ASPIRIN 81 MG CHEW PO SCH (10:06)
[2018-07-28] MEDS: ROSUVASTATIN CALCIUM 20 MG TAB PO SCH (10:06)
[2018-07-28] MEDS: APIXABAN 5 MG TABLET PO SCH ×2 (10:07→20:35)
[2018-07-28] MEDS: dilTIAZem ER 120 MG CAPCR PO SCH (10:07)
[2018-07-28] MEDS: DOCUSATE SODIUM/SENNA 50/8.6MG TAB PO SCH ×2 (10:07→20:35)
[2018-07-28] MEDS: LATANOPROST 0.005% OP SOLN 2.5 ML BTL OPB SCH (20:36)
--- NOTE | 2018-07-28 21:27 | Hospitalist Progress Note ---
Date of Service July 28, 2018 Assessment & Plan (1) Acute on chronic respiratory failure with hypoxia and hypercapnia: Presented with acute on chronic hypoxic and hypercapnic respiratory failure. Critical Care Medicine consulted. Underlying COPD and CHF; specific problems addressed below. Continue supplemental oxygen and BiPAP. Will need O2 and BiPAP arranged when discharged. (2) COPD (chronic obstructive pulmonary disease): O2 dependent COPD with exacerbation. Received IV methylprednisolone; transitioned to oral therapy with prednisone. Taper prednisone. Continue bronchodilators. (3) Diastolic CHF: Acute on chronic left ventricular diastolic heart failure. Received IV diuretics with improvement. Weight 107.6 --> 93.2 kg. Continue furosemide - currently 40 mg PO BID. Check f/u chest x-ray /2. Monitor fluid status, weights, labs. (4) Altered mental status: Confused at time of admission. Probable metabolic encephalopathy secondary to respiratory failure. Mental status improved, but still fluctuates (tends to be better when she wears BiPAP). (5) Atrial fibrillation: Chronic AF, rate controlled. Continue metoprolol and diltiazem. Continue anticoagulation with apixaban. (6) Hypertension: Continue metoprolol and diltiazem. (7) Cerebrovascular disease: Continue aspirin and statin. (8) Hypothyroidism: Continue levothyroxine. (9) Ambulatory dysfunction: Has not been ambulatory for some time. Ambulatory dysfunction probably multifactorial. PT and OT evaluations obtained; felt that patient would not tolerate and unlikely to benefit from further therapy. (10) Dementia: Monitor for delirium. (11) Constipation: No documented bowel movement for several days. Bowel regimen as ordered. (12) DVT prophylaxis: Nonambulatory. Continue apixaban. (13) Discharge planning issues: Anticipated return to [facility] when medically stable. Will need BiPAP for chronic resp failure. Case Management consulted. requested that I call him with update. Called this morning- no answer. Called him again this evening. He expressed concerns about her condition. Also expressed his frustrations with the health care system, [facility], and judicial system. He seems to have some misunderstandings about her medical conditions and best management. For example, he feels that she does not need oxygen because she was told in the past that she does not need it. He feels that she is being "doped up." Medications were reviewed and he was informed that she is not receiving any sedating medications at this time. He feels that she should be receiving ongoing aggressive PT and OT so that she can walk again, Hopes that she can go to [facility] so that she would eventually be able to get back home. PT / OT assessments and recommendations were discussed with him. He does not want her to return to [facility]. Patient currently has a court-appointed guardianship. Discharge disposition to be determined by legally designated parties. Subjective Recheck for respiratory failure and other problems. Patient seen in her room around 1010. She was out of bed in chair. No fever. Occasional nonproductive cough. No chest pain. No nausea, vomiting, diarrhea. Telemetry data reviewed. AF with ventricular rate 70's - 90's. Physical Exam 2 Vital Signs (Past 24 Hours): Last Vital Signs Temp 36.7 C 07/28/18 19:38 Pulse 82 07/28/18 19:45 Resp 16 07/28/18 19:45 BP 123/71 07/28/18 19:38 Pulse Ox 94 07/28/18 19:45 Constitutional: no acute distress Respiratory: Auscultation: + wheezes (diffuse, mild) Cardiovascular: Rate/Rhythm: + abnormal rhythm (irregular) Heart Sounds: no gallop Extremities: + edema (1+ pretibial) Gastrointestinal (Abdomen): Inspection/Auscultation: normal bowel sounds Percussion/Palpation: abdomen soft; abdomen nontender Musculoskeletal: Extremities: no cyanosis Skin: no rashes, warm and dry Psychiatric: Orientation: alert, oriented to person and oriented to place Genitourinary: + abnormal external appearance (De Oliveira cath)
[2018-07-28] MEDS ORDERED: BISACODYL 5 MG TABEC PO PRN (22:16)
[2018-07-28] MEDS ORDERED: POLYETHYLENE (MIRALAX) 17 GM PACK PO PRN (22:17)
[2018-07-29] MEDS: LEVALBUTEROL 1.25MG/0.5ML NEB INH SCH ×5 (02:04→19:17)
[2018-07-29] MEDS: IPRATROPIUM BROMIDE NEB SOLN 0.02% 2.5 ML VIAL INH SCH ×5 (02:04→19:17)
[2018-07-29] MEDS: LEVOTHYROXINE SODIUM 100 MCG TABLET PO SCH (06:24)
[2018-07-29 07:16] LABS: Hematocrit (blood only) 43.7 % (37-47); Hemoglobin 13.7 g/dL (12.0-16.0); Mean Corpuscular Hgb Conc 31.4 g/dL (32-36); Mean Corpuscular Volume 97.5 fL (80-100); Mean Platelet Volume 9.1 fL (7.4-10.4); Platelet Count 187 K/uL (130-400); RDW Standard Deviation 53.9 fL (36.4-46.3); Red Blood Count 4.48 M/uL (4.2-5.4); White Blood Count 10.81 K/uL (4.8-10.8)
--- NOTE | 2018-07-29 07:28 | XRay Report ---
XR chest 1V portable CLINICAL HISTORY: f/u CHF dyspnea COMPARISON STUDY: 07/20/2018 FINDINGS: Moderate stable cardiomegaly. Permanent bipolar cardiac pacemaker. Interval development of bilateral pleural effusions and left basilar atelectatic change. Upper lungs are considered clear. IMPRESSION: 1. Findings of mildly progressive congestive failure.. 2. Bilateral pleural effusions with left basilar atelectatic change. The above report was generated using voice recognition software. It may contain grammatical, syntax or spelling errors. Electronically signed by: Jason Last M.D. 07/29/2018 7:26 AM
[2018-07-29] MEDS: ASPIRIN 81 MG CHEW PO SCH (07:30)
[2018-07-29] MEDS: ROSUVASTATIN CALCIUM 20 MG TAB PO SCH (07:30)
[2018-07-29] MEDS: FUROSEMIDE 40 MG TAB PO SCH (07:30)
[2018-07-29] MEDS: DOCUSATE SODIUM/SENNA 50/8.6MG TAB PO SCH ×2 (07:31→19:58)
[2018-07-29] MEDS: APIXABAN 5 MG TABLET PO SCH ×2 (07:31→19:59)
[2018-07-29] MEDS: METOPROLOL SUCC 50MG EXT REL TAB PO SCH (07:31)
[2018-07-29] MEDS: dilTIAZem ER 120 MG CAPCR PO SCH (07:31)
[2018-07-29] MEDS: predniSONE 10 MG TABLET PO SCH (07:31)
[2018-07-29 08:02] LABS: BUN Creatinine Ratio 28.6 (10-20); Calcium 8.7 mg/dl (8.5-10.1); Creatinine Clr Calc Pharmacy 50.8 ml/min; Est GFR (African American) 62.5; Est GFR (Non-African American) 53.9; Potassium 3.5 mmol/L (3.5-5.1)
[2018-07-29] MEDS ORDERED: TAP WATER ENEMA PR PRN (10:44)
--- NOTE | 2018-07-29 15:59 | Cardiology Consultation ---
Date of Consultation July 29, 2018 Assessment & Plan (1) Acute on chronic respiratory failure with hypoxia and hypercapnia: Appear to be oxygenating well though with CO2 retention reported presentation (2) Atrial fibrillation: No timing regarding chronicity available patient anticoagulated Patient on combination of metoprolol and diltiazem for rate control. Diltiazem may be aggravating chronic edema (3) S/P placement of cardiac pacemaker: Device placed 2009 dual-chamber Medtronic Will recommend assessment of device, ascertain who has been maintaining follow- up (4) Altered mental status: Chronic hypercapnia remains an issue. Diminished respiratory effort of concern especially in the light of a enlarging right pleural effusion. Patient may warrant thoracentesis to improve respiratory efforts Exam reflects need for additional diuretics with marked presacral edema Would add spironolactone to help potassium retention (5) Pleural effusion: Right pleural effusion is large would recommend ultrasound to quantify the effusion, francisco for possible thoracentesis given baseline hypoventilation status (6) Diastolic CHF: Diagnosis on chart no recent assessment of LV function, valvular disease available Recommend echocardiogram Check chem profile assess albumin levels suspect component of hypoalbuminemia contributing to current complaint History of Present Illness Reason for Consultation: Congestive heart failure edema pleural effusion Requesting Physician: Dr. Collier Attending Physician: Nathan Collier MD History of Present Illness Patient is an 87-year-old female who responds minimally to verbal contact and is unable to offer additional information. Cardiac information was attempted to be gleaned from records available with limited active data Past history per report is notable for pacemaker insertion due to possible syncopal event in 2009 with Medtronic dual-chamber device. Records accompanying the patient from [facility] reflect a history of atrial fibrillation of uncertain chronicity, diastolic heart failure , chronic obstructive lung disease O2 dependent, cerebrovascular disease with dementia Patient is referred now for further evaluation after extended hospitalization following admission on 07/20/2018 with hypercapnic respiratory failure. Patient was treated initially with BiPAP IV diuretics corticosteroids and antibiotic therapies but per records has made limited progress over the past several days. Diuretics were reduced due to concerns regarding elevated CO2. She is referred now for further cardiac evaluation. No recent echocardiogram or assessment LV function available no data regarding pacemaker function or history of interrogation on chart. Patient unable to offer additional information Chest x-ray today demonstrates enlarging right pleural effusion. Last EKG 07/20 revealed atrial fibrillation with ventricular paced rhythm Allergies Allergy/AdvReac Type Severity Reaction Status Date / Time Penicillins Allergy Unknown RXN TO Verified 07/20/18 06:19 AMOXICILLIN adhesive AdvReac Mild RXN TO TAPE Verified 07/20/18 06:19 Home Medications Home Medications Medication Instructions Recorded Confirmed Type acetaminophen 650 mg PO Q6H PRN MDD 3gm/24hr 07/20/18 07/20/18 History apixaban [Eliquis] 5 mg PO BID 07/20/18 07/20/18 History aspirin 81 mg PO DAILY 07/20/18 07/20/18 History atorvastatin [Lipitor] 40 mg PO DAILY 07/20/18 07/20/18 History bisacodyl [Dulcolax (bisacodyl)] 10 mg DE DAILY PRN 07/20/18 07/20/18 History cholecalciferol (vitamin D3) 4,000 unit PO DAILY 07/20/18 07/20/18 History [Vitamin D3] clotrimazole-betamethasone 1 applic TOPICAL BID 07/20/18 07/20/18 History [Lotrisone] diltiazem HCl 120 mg PO DAILY 07/20/18 07/20/18 History furosemide [Lasix] 40 mg PO DAILY 07/20/18 07/20/18 History ipratropium-albuterol 3 ml INHALATION Q4 PRN 07/20/18 07/20/18 History latanoprost 1 drp OPB PM 07/20/18 07/20/18 History levalbuterol HCl 0.63 mg INHALATION Q4 PRN 07/20/18 07/20/18 History levothyroxine 100 mcg PO DAILY 07/20/18 07/20/18 History magnesium hydroxide [Milk of 2,400 mg PO UD PRN 07/20/18 07/20/18 History Magnesia] metoprolol succinate 50 mg PO DAILY 07/20/18 07/20/18 History oxybutynin chloride 5 mg PO DAILY 07/20/18 07/20/18 History potassium chloride 20 meq PO DAILY 07/20/18 07/20/18 History sennosides-docusate sodium [Senna 1 tab PO BID 07/20/18 07/20/18 History with Docusate Sodium] sodium phosphates [Fleet Enema] 118 ml DE DAILY PRN 07/20/18 07/20/18 History Patient History Medical History Hypertension (Chronic) Cerebrovascular disease (Chronic) "ischemic stroke left basal ganglia 2009" Hypothyroidism (Chronic) Dementia (Chronic) "mild" Urinary incontinence (Chronic) COPD (chronic obstructive pulmonary disease) (Chronic) Carotid artery disease (Chronic) "carotid duplex [facility] 11/29/16: bilat plaque, moderate ECA stenosis bilat, no significant ICA stenosis" Symptomatic bradycardia (Chronic) "S/P pacemaker" Diastolic CHF (Chronic) Atrial fibrillation (Chronic) Surgical History S/P placement of cardiac pacemaker (Chronic) Family History Other Family history unobtainable due to patient's condition Social History Current Living Situation: [facility] Current Living Situation Comment: [facility] Other Information That Helps Us Care for You: No Feels Safe at Home: Yes Safety Concerns: Feels Safe At This Time Smoking Status: Never smoker Hx Alcohol Use: No Hx Substance Use: No Beliefs That Will Affect Care: None Communication Ability: Impaired Review of Systems Unobtainable Physical Exam 2 Vital Signs (Past 24 Hours): Last Vital Signs Temp 36.4 C L 07/29/18 15:26 Pulse 79 07/29/18 15:26 Resp 16 07/29/18 15:26 BP 119/65 07/29/18 15:26 Pulse Ox 90 07/29/18 15:26 Constitutional: + obese, + lethargic and + edematous ENMT: external ear and nose normal, oropharynx normal Neck: + thick neck Respiratory: Diminished breath sounds diffusely with poor inspiratory effort markedly diminished breath sounds right base Cardiovascular: Regular with distant heart sounds no audible murmur rhythm paced Gastrointestinal (Abdomen): Obese soft no distinct hepatosplenomegaly or abdominal bruits audible Musculoskeletal: There is marked lower extremity edema and presacral edema Skin: no rashes, warm and dry Neurologic: Patient responds to verbal stimulations minimally grimaces with noxious stim. Will attempt to verbalize on occasion when questioned Results & Data Laboratory Results Laboratory Results - last 24 hr 07/29/18 07/29/18 07:03 07:03 WBC 10.81 H RBC 4.48 Hgb 13.7 Hct 43.7 MCV 97.5 MCH 30.6 MCHC 31.4 L RDW Std Deviation 53.9 H RDW Coeff of Jorge 15.0 H Plt Count 187 MPV 9.1 Sodium 141 Potassium 3.5 Chloride 92 L Carbon Dioxide 48 H* Anion Gap 1.0 L BUN 27 H Creatinine 0.96 Est Cr Clr Drug Dosing 50.8 Est GFR ( Amer) 62.5 Est GFR (Non-Af Amer) 53.9 BUN/Creatinine Ratio 28.6 H Glucose 114 H Calcium 8.7
[2018-07-29] MEDS ORDERED: FUROSEMIDE 20 MG in SYRINGE 0 ML IV ONE (16:00)
[2018-07-29] MEDS ORDERED: SPIRONOLACTONE 25 MG TAB PO ONE (16:27)
--- NOTE | 2018-07-29 17:57 | Hospitalist Progress Note ---
Date of Service July 29, 2018 Assessment & Plan (1) Acute on chronic respiratory failure with hypoxia and hypercapnia: Acute on chronic hypoxic and hypercapnic respiratory failure. Acute COPD Exacerbation Respiratory acidosis Metabolic Encephalopathy CHF contributing to respiratory failure as well Continue supplemental oxygen and BiPAP as needed Needs BiPAP arranged upon discharge (2) COPD (chronic obstructive pulmonary disease): O2 dependent COPD with exacerbation. Received IV methylprednisolone Taper down prednisone. Continue bronchodilators. Will request Pulm to re-eval if no improvement (3) Diastolic CHF: Acute on chronic left ventricular diastolic heart failure. CXR today worsening fluid overload Resume IV lasix Monitor electrolytes, daily weight Device check requested Added spiranolactone Update ECHO Patient refused chest USD to assess for effusion (4) Altered mental status: Confused at time of admission. Probable metabolic encephalopathy secondary to respiratory failure. Mental status fluctuates Has been refusing BiPAP on and off (5) Atrial fibrillation: Chtonic atrial fibrillation Rate controlled Continue metoprolol Diltiazem held as might be contributing to chronic edema Continue Apixaban. Appreciate Cardiology Input (6) Hypertension: Stable Continue metoprolol Diltiazem held (7) Cerebrovascular disease: Continue aspirin, statin. (8) Hypothyroidism: Continue levothyroxine. (9) Ambulatory dysfunction: Has not been ambulatory for some time. Ambulatory dysfunction probably multifactorial. PT and OT evaluations obtained (10) Dementia: Monitor for delirium. (11) Constipation: Continue bowel regimen (12) DVT prophylaxis: Non ambulatory. Continue apixaban. (13) Discharge planning issues: Anticipated return to [facility] when medically stable. Will need BiPAP for chronic resp failure. Case Management consulted. Patient currently has a court-appointed guardianship. Discharge disposition to be determined by legally designated parties. May need to readdress code status Subjective Patient is seen and examined at bedside Very lethargic this morning CXR suggestive of worsening fluid overload No family at bedside Could not obtain any history Plan to check ABG/VBG as able as patient currently refuses any lab draws Could not reach legal guardian today--Will try again tomorrow Discussed with Cardiology today Also refuses BiPAP Physical Exam 2 Vital Signs (Past 24 Hours): Last Vital Signs Temp 36.4 C L 07/29/18 15:26 Pulse 79 07/29/18 15:26 Resp 16 07/29/18 15:26 BP 119/65 07/29/18 15:26 Pulse Ox 90 01/02/19 15:26 Physical Exam: Physical Exam: Vitals signs as noted above General Appearance:Obese, no apparent distress, lethargic Head: normocephalic, Atraumatic Eyes: normal inspection, EOMI Neck: supple, Trachea midline Respiratory/Chest: Decreased breath sounds, CTA Cardiovascular: Irregularly Irregular, No murmur Abdomen/GI:Soft, Non tender, Bowel sounds present Extremities/Musculoskelatal:normal inspection, marked B/L LE edema, presacral edema Neurologic/Psych:grossly no focal neurological deficits, +dementia/confusion Skin: normal color, warm Results & Data Laboratory Results Short CBC 07/29/18 Range/Units 07:03 WBC 10.81 H (4.8-10.8) K/uL Hgb 13.7 (12.0-16.0) g/dL Hct 43.7 (37-47) % Plt Count 187 (130-400) K/uL BMP 07/29/18 07:03 Sodium 141 Potassium 3.5 Chloride 92 L Carbon Dioxide 48 H* BUN 27 H Creatinine 0.96 Glucose 114 H Calcium 8.7 Diagnostic Findings CXR: 1. Findings of mildly progressive congestive failure.. 2. Bilateral pleural effusions with left basilar atelectatic change.
[2018-07-29 19:06] LABS: Base Excess VBG 21.1 mEq/L; Oxygen Saturation VBG 87.2 %; pH VBG 7.47 (7.36-7.41)
[2018-07-29 19:45] LABS: Albumin Globulin Ratio 0.9 (0.9-2); Albumin Level 2.9 gm/dl (3.4-5.0); BUN Creatinine Ratio 29.1 (10-20); Bilirubin,Total 0.8 mg/dl (0.2-1); Calcium 9.2 mg/dl (8.5-10.1); Creatinine Clr Calc Pharmacy 56.1 ml/min; Est GFR (African American) 70.4; Est GFR (Non-African American) 60.7; Globulin 3.4 gm/dl (2.5-4.0); Potassium 3.8 mmol/L (3.5-5.1); Total Protein 6.3 gm/dl (6.4-8.2)
[2018-07-29] MEDS: LATANOPROST 0.005% OP SOLN 2.5 ML BTL OPB SCH (19:59)
[2018-07-30] MEDS: IPRATROPIUM BROMIDE NEB SOLN 0.02% 2.5 ML VIAL INH SCH ×4 (01:50→20:30)
[2018-07-30] MEDS: LEVALBUTEROL 1.25MG/0.5ML NEB INH SCH ×4 (01:51→20:30)
[2018-07-30] MEDS: LEVOTHYROXINE SODIUM 100 MCG TABLET PO SCH (05:56)
[2018-07-30] MEDS: ASPIRIN 81 MG CHEW PO SCH (08:13)
[2018-07-30] MEDS: DOCUSATE SODIUM/SENNA 50/8.6MG TAB PO SCH ×2 (08:13→20:57)
[2018-07-30] MEDS: SPIRONOLACTONE 25 MG TAB PO SCH (08:13)
[2018-07-30] MEDS: APIXABAN 5 MG TABLET PO SCH ×2 (08:13→20:57)
[2018-07-30] MEDS: predniSONE 10 MG TABLET PO SCH (08:13)
[2018-07-30] MEDS: ROSUVASTATIN CALCIUM 20 MG TAB PO SCH (08:13)
[2018-07-30] MEDS: FUROSEMIDE 40 MG in SYRINGE 0 ML IV SCH ×2 (08:13→18:03)
[2018-07-30] MEDS: METOPROLOL SUCC 50MG EXT REL TAB PO SCH (08:13)
[2018-07-30] MEDS ORDERED: FUROSEMIDE 40 MG TAB PO SCH (09:00)
[2018-07-30 12:26] LABS: Hematocrit (blood only) 45.1 % (37-47); Hemoglobin 14.1 g/dL (12.0-16.0); Mean Corpuscular Hgb Conc 31.3 g/dL (32-36); Mean Corpuscular Volume 96.8 fL (80-100); Platelet Count 213 K/uL (130-400); Red Blood Count 4.66 M/uL (4.2-5.4); White Blood Count 12.84 K/uL (4.8-10.8)
[2018-07-30 13:29] LABS: Calcium 9.5 mg/dl (8.5-10.1); Creatinine Clr Calc Pharmacy 45.4 ml/min; Est GFR (African American) 56.7; Magnesium 2.4 mg/dl (1.8-2.4); Potassium 3.7 mmol/L (3.5-5.1)
[2018-07-30 13:30] LABS: BUN Creatinine Ratio 23.5 (10-20)
--- NOTE | 2018-07-30 13:31 | Palliative Care Consultation ---
Date of Consultation July 30, 2018 Assessment & Plan (1) Goals of care, counseling/discussion: -87 year old female patient with PMH COPD, oxygen-dependence, chronic hypercapnia, atrial fibrillation, hypothyroidism, ambulatory dysfunction and vascular dementia, presented to the hospital 10 days ago for respiratory distress and altered mental status. Being treated for COPD exacerbation and chronic diastolic heart failure. Patient has been refusing bipap, lab work, and ultrasound for possible thoracentesis. Patient is now stating that she does not want to continue active treatment and wants to be left alone. -Palliative care is consulted to assist with establishing goals of care and medical decision making in a complex case. -Patient does have signs of severe, COPD such as a chronically elevated CO2 level with oxygen dependence. CO2 now has been in critical range and worsening with patient's refusal of bipap and other treatments. I dot not have PFTs on hand to review. -Cardiology recommends echocardiogram to be done, but patient might refuse anyway. -Today, patient seemed clear that she does not want to continue active treatment and would prefer to be made comfortable and allow nature to take its course. -Patient does have history of "mild dementia" on record. She has also been known to have altered mental status related to her acute on chronic illnesses and encephalopathy. This is why she has a court-appointed guardian. For these reasons, patient's guardian should be involved in decision making. I am awaiting a call back from Bronwyn Freedman, director of [facility]. Patient's , Aakash Huggins, is not to be making decisions for the patient. -Once we receive call back from [facility], can make plans for how to proceed with patient's care. (2) Acute on chronic respiratory failure with hypoxia and hypercapnia: (3) Pleural effusion: (4) COPD (chronic obstructive pulmonary disease): (5) Diastolic CHF: (6) Cerebrovascular disease: (7) Dementia: (8) Ambulatory dysfunction: (9) Altered mental status: Supervising Physician Co-Signing Physician Notes Chart reviewed, patient seen and examined, no family at bedside. Patient fatigue, mild confusion-patient denied fever, chills, chest pain, increased shortness of breath, or GI issues. PE: Patient sitting upright in chair, on O2, appears comfortable HEENT: EOMI, mild [place] Lungs-respirations unlabored, decreased breath sounds at both bases CV:Regular rate, Positive lower extremity pitting edema Abdomen: Nontender Extremities: Cyanosis bilateral toes left greater than right Agree with above note, assessment and plan as per DORON [place]-we will continue to follow to assist with medical decision making History of Present Illness Reason for Consultation: Goals of care Requesting Physician: Dr. Collier Attending Physician: Nathan Collier MD History of Present Illness This 87 year old female patient with PMH COPD, oxygen-dependence, atrial fibrillation, hypothyroidism, ambulatory dysfunction and vascular dementia, presented to the hospital 10 days ago for respiratory distress and altered mental status. In ED, patient was 74% on room air. She was subsequently placed on BiPAP. ABGs demonstrate a respiratory acidosis with pH 7.27, PCO2 82, PO2 108 , HCO3 37. ProBNP 2690. Other labs are unremarkable. CXR shows mild pulmonary vascular congestion. She was given a nebulizer treatment and Solu-Medrol 125 mg IV. She was admitted to ICU for acute on chronic respiratory failure with hypercapnia related to severe COPD and chronic diastolic heart failure. Was started on Bipap at night, given steroids and nebs, treated with diuretics for heart failure, also treated with abx for UTI. She did develop elevated creatinine which has since resolved, but then creatinine did jump from 0.87 to 1.04 today. Patient was transferred out of ICU in a couple days. Patient's mentation did somewhat improve and she began to refuse the bipap, refuse lab work, and refuse to have ultrasound of pleural effusion for possible thoracentesis. Cardiology has been consulted for management of heart failure and lack of progress, and nephrology and pulmonology have been involved unofficially per the hospitalist. Given patient's refusal of treatment, there is not much that can be offered. Palliative care was involved during patient's admission in February 2018, and are consulted again for establishment of goals of care. This patient has a rather complicated social history as well. She has a legal guardian through [facility]. [facility] director's name is Bronwyn Freedman ([phone]). The following excerpt is from my consult in February: "In reviewing records, patient was here 11/04/17-11/17/17 with respiratory distress, transferred from [facility]. She was intubated in ED and sent to ICU for hypercapnic respiratory failure. Was treated as asthma exacerbation, treated for pneumonia and afib. She also has a component of CHF, echo at the time showed EF 55-60%, normal LV systolic function, normal RV systolic function , grossly no valvulopathy. The critical care note at that time indicated that when patient was extubated, she was competent to make medical decisions and understood the difference between cardiac arrest and respiratory insufficiency vs. respiratory arrest. In the event of cardiac arrest, she did not want to be resuscitated, but was okay with short-term intubation for respiratory insufficiency/respiratory arrest. It is well-documented that physicians were not comfortable discharging patient to her home as she was significantly weak, requiring multiple-person assist to get out of bed. During hospitalization patient had significant physical and cognitive decline. was adamant that he wanted to take patient home, but it was felt by health care team to be unsafe. Patient was ultimately discharged home with home health at the insistence of the patient's Edward. That night, patient had several BMs and fell. Office of aging was contacted, who accepted the case for protective/ safety evaluation in the home. The patient went to [facility] ED. Temporary guardianship was obtained at that time through [employer] and patient was admitted to [facility] until the patient's could declutter/ rearrange the house and 17/02 caregivers could be arranged in the home. Patient was sent back to [facility]'s ED on 12/15/17 with altered mental status. CXR in ED at the time showed possible left basilar pneumonia, she was hypoxic with saturations in 80s. She was refusing oxygen and some other treatments, but was treated for pneumonia and COPD exacerbation. Patient was admitted until 02/25/18 due to chronic diastolic heart faiure, respiratory failure/COPD, afib, and disposition issues related to guardianship/medical decision making. During this admission patient was having periods of confusion/disorientation due to dementia vs. metabolic encephalopathy. She returned to her baseline which was oriented x2, still occasionally refusing some medications and treatments. She was ultimately discharged back to the [facility]. There was a final court hearing scheduled for April 02, 2018 for permanent guardianship through [employer]." Patient was then admitted to ICU again in February 2018 for COPD exacerbation. Upon extubation at that time, patient was not competent to make decisions and her wanted her to be full code despite her previous decision to be DNR. Ethics committee and palliative care were consulted. Back in February, I spoke at length with patient's legal guardianship agency, who at the time was [employer]. It was my understanding that all decision making would be done through the legal guardian who would then interface with patient's and family. If patient was to be made a DNR, two physicians needed to certify that she was end-stage and would recommend DNR. Patient eventually stabilized during that admission and she was discharged back to the [facility]. Today, I met with patient in room 250. She was full awake, able to tell me her name, where she was, and that it was July 2018. She stated, "I don't want any of this!" In further speaking to patient she stated that she does not want to wear bipap any more, does not want lab work to be drawn, does not want to have her pleural effusion drained. I stated that we would like to follow her wishes, but need to be sure she understands that if we stop active treatment she could pass away soon. Patient stated, "I do not fear that at all." I asked what she would want to happen if her heart stopped or she stopped breathing, indicating that she had essentially . Patient stated, "I'd just want you to let me go." Patient continued saying, "I just want to go home! I want to go home with my ." Patient eventually stopped answering my questions. I do feel that patient was able to understand the information I was presented and that she was making clear decisions. I contacted her legal guardianship agency and spoke with Viktoriya, who was familiar with patient's case. Viktoriya stated she would talk with their director, Bronwyn Freedman, and have her call me back regarding changing patient to DNR and deciding on goals of care. Of note, patient's is known to be verbally abusive to medical team and staff as well as threatening to all involved in his 's care. State police contacted director of case management here at [facility] today and stated that patient's Aakash is to be served legal papers banning him from the [facility]. Patient's is not to be making any decisions without legal guardian. Allergies Allergy/AdvReac Type Severity Reaction Status Date / Time Penicillins Allergy Unknown RXN TO Verified 07/20/18 06:19 AMOXICILLIN adhesive AdvReac Mild RXN TO TAPE Verified 07/20/18 06:19 Home Medications Home Medications Medication Instructions Recorded Confirmed Type acetaminophen 650 mg PO Q6H PRN MDD 3gm/24hr 07/20/18 07/20/18 History apixaban [Eliquis] 5 mg PO BID 07/20/18 07/20/18 History aspirin 81 mg PO DAILY 07/20/18 07/20/18 History atorvastatin [Lipitor] 40 mg PO DAILY 07/20/18 07/20/18 History bisacodyl [Dulcolax (bisacodyl)] 10 mg [place] DAILY PRN 07/20/18 07/20/18 History cholecalciferol (vitamin D3) 4,000 unit PO DAILY 07/20/18 07/20/18 History [Vitamin D3] clotrimazole-betamethasone 1 applic TOPICAL BID 07/20/18 07/20/18 History [Lotrisone] diltiazem HCl 120 mg PO DAILY 07/20/18 07/20/18 History furosemide [Lasix] 40 mg PO DAILY 07/20/18 07/20/18 History ipratropium-albuterol 3 ml INHALATION Q4 PRN 07/20/18 07/20/18 History latanoprost 1 drp OPB PM 07/20/18 07/20/18 History levalbuterol HCl 0.63 mg INHALATION Q4 PRN 07/20/18 07/20/18 History levothyroxine 100 mcg PO DAILY 07/20/18 07/20/18 History magnesium hydroxide [Milk of 2,400 mg PO UD PRN 07/20/18 07/20/18 History Magnesia] metoprolol succinate 50 mg PO DAILY 07/20/18 07/20/18 History oxybutynin chloride 5 mg PO DAILY 07/20/18 07/20/18 History potassium chloride 20 meq PO DAILY 07/20/18 07/20/18 History sennosides-docusate sodium [Senna 1 tab PO BID 07/20/18 07/20/18 History with Docusate Sodium] sodium phosphates [Fleet Enema] 118 ml [place] DAILY PRN 12/24/18 12/24/18 History Patient History Medical History Hypertension (Chronic) Cerebrovascular disease (Chronic) "ischemic stroke left basal ganglia 2009" Hypothyroidism (Chronic) Dementia (Chronic) "mild" Urinary incontinence (Chronic) COPD (chronic obstructive pulmonary disease) (Chronic) Carotid artery disease (Chronic) "carotid duplex [facility] 11/29/16: bilat plaque, moderate ECA stenosis bilat, no significant ICA stenosis" Symptomatic bradycardia (Chronic) "S/P pacemaker" Diastolic CHF (Chronic) Atrial fibrillation (Chronic) Surgical History S/P placement of cardiac pacemaker (Chronic) Family History Other Family history unobtainable due to patient's condition Social History Current Living Situation: [place] Current Living Situation Comment: [facility] Other Information That Helps Us Care for You: No Feels Safe at Home: Yes Safety Concerns: Feels Safe At This Time Smoking Status: Never smoker Hx Alcohol Use: No Hx Substance Use: No Beliefs That Will Affect Care: None Communication Ability: Impaired Review of Systems Constitutional: no fever and no chills Respiratory: + cough; no dyspnea Cardiovascular: no chest pain and no edema Gastrointestinal: no abdominal pain, no nausea and no vomiting Musculoskeletal: + muscle weakness Neurologic: no confusion Psychiatric: + irritability (related to unwanted treatment); no anxiety Physical Exam 2 Vital Signs (Past 24 Hours): Last Vital Signs Temp 36.5 C 07/30/18 11:37 Pulse 94 H 07/30/18 11:37 Resp 20 07/30/18 11:37 BP 157/88 H 07/30/18 11:37 Pulse Ox 88 L 07/30/18 07:12 Constitutional: + ill appearing and + overweight; + not healthy appearing ENMT: Ears: no hearing impairment Neck: normal visual inspection and trachea midline Respiratory: no respiratory distress Auscultation: + diminished lung sounds and + crackles (bases) Cardiovascular: Rate/Rhythm: regular rate; + abnormal rhythm Vessels: no JVD Extremities: + edema (non-pitting to BLE) Gastrointestinal (Abdomen): Inspection/Auscultation: abdomen normal to inspection and normal bowel sounds; abdomen not distended Percussion/ Palpation: abdomen soft; abdomen nontender Musculoskeletal: general deconditioning Skin: no rashes, warm and dry Neurologic: awake; not confused Psychiatric: Orientation: alert, oriented to person, oriented to place and oriented to time Affect: + angry affect Time Spent Midlevel 80 minutes with >50% of time spent at bedside talking with patient discussing GOC, talking with physician, and speaking with patient's legal guardianship agency.
--- NOTE | 2018-07-30 16:33 | Cardiology Progress Note ---
Date of Service July 30, 2018 Assessment & Plan (1) Acute on chronic respiratory failure with hypoxia and hypercapnia: Appear to be oxygenating well though with CO2 retention hypercapnic respiratory failure on presentation (2) Atrial fibrillation: No timing regarding chronicity available patient anticoagulated Patient on combination of metoprolol and diltiazem for rate control. Diltiazem may be aggravating chronic edema Pacemaker interrogated today pacemaker functioning appropriately patient in persistent atrial fibrillation with mode switching at times Will discontinue diltiazem consider increasing metoprolol versus adding digoxin depending on rate response (3) S/P placement of cardiac pacemaker: Device placed 2009 dual-chamber [employer]onic Patient follows with [facility] physician group for pacemaker follow-up and recent (4) Altered mental status: Chronic hypercapnia remains an issue. Diminished respiratory effort of concern especially in the light of a enlarging right pleural effusion. Patient may warrant thoracentesis to improve respiratory efforts Exam reflects need for additional diuretics with marked presacral edema Would add spironolactone to help potassium retention (5) Pleural effusion: Right pleural effusion is large would recommend ultrasound to quantify the effusion, francisco for possible thoracentesis given baseline hypoventilation status (6) Diastolic CHF: Diagnosis on chart no recent assessment of LV function, valvular disease available Recommend echocardiogram Hypoalbuminemia is contributing to complaints. Patient initially refused echocardiogram today. Would continue IV diuretics for time being supplement potassium and spironolactone to help with contraction alkalosis Subjective Patient seen and examined chart medications telemetry reviewed. Patient remains nonconversant with me in the room answering some questions. Patient refused echocardiogram earlier today has been taking medications however as prescribed appetite described as fair Physical Exam 2 Vital Signs (Past 24 Hours): Last Vital Signs Temp 36.5 C 07/30/18 15:04 Pulse 82 07/30/18 16:00 Resp 20 07/30/18 15:04 BP 131/72 07/30/18 15:04 Pulse Ox 89 L 07/30/18 15:04 Constitutional: + obese, + lethargic and + edematous ENMT: external ear and nose normal, oropharynx normal Neck: + thick neck Respiratory: Markedly diminished breath sounds bibasilar right greater than left Cardiovascular: Irregularly irregular no audible S3 gallop Significant presacral and thigh edema is present Gastrointestinal (Abdomen): Obese soft no distinct tenderness Skin: no rashes, warm and dry
[2018-07-30] MEDS ORDERED: POTASSIUM CHLORIDE 20 MEQ TABCR PO STA (16:41)
--- NOTE | 2018-07-30 18:27 | Hospitalist Progress Note ---
Date of Service July 30, 2018 Assessment & Plan (1) Acute on chronic respiratory failure with hypoxia and hypercapnia: Acute on chronic hypoxic and hypercapnic respiratory failure. Acute COPD Exacerbation Respiratory acidosis and Metabolic alkalosis Metabolic Encephalopathy CHF contributing to respiratory failure as well Continue supplemental oxygen and BiPAP as needed Needs BiPAP arranged upon discharge (2) COPD (chronic obstructive pulmonary disease): O2 dependent COPD with exacerbation. Received IV methylprednisolone Taper down prednisone as able Continue bronchodilators. Will request Pulm to re-eval if deteriorates Need to address goals of care Appreciate Palliative Care Input (3) Diastolic CHF: Acute on chronic left ventricular diastolic heart failure. CXR today worsening fluid overload Diltiazem disconued as contributing to edema Continue IV lasix Also added Aldactone Monitor electrolytes, daily weight Pateint refused ECHO Pacemaker interrogated Patient refused chest USD to assess for pleural effusion for possible thorocentesis Appreciate Cardiology Input (4) Altered mental status: Confused at time of admission. Probable metabolic encephalopathy secondary to respiratory failure. Mental status fluctuates Has been refusing BiPAP on and off (5) Atrial fibrillation: [place] atrial fibrillation Rate controlled Continue metoprolol Diltiazem held as might be contributing to chronic edema Continue Apixaban. Appreciate Cardiology Input (6) Hypertension: Stable Continue metoprolol monitor (7) Cerebrovascular disease: Continue aspirin, statin. (8) Hypothyroidism: Continue levothyroxine. (9) Ambulatory dysfunction: Has not been ambulatory for some time. Ambulatory dysfunction probably multifactorial. PT and OT evaluations obtained (10) Dementia: Monitor for delirium. (11) Constipation: Continue bowel regimen (12) DVT prophylaxis: Non ambulatory. Continue apixaban. (13) Discharge planning issues: Anticipated return to [facility] when medically stable. Will need BiPAP for chronic resp failure. Case Management consulted. Patient currently has a court-appointed guardianship. Discharge disposition to be determined by legally designated parties. May need to readdress code status Subjective Patient is seen and examined at bedside More alert, awake today She states that she prefers to be discharged home and would not like to continue active treatment Refused ECHO earlier Palliative care following Palliative care discussed with [facility] to address goals of care Had BM today Also refuses BiPAP per staff Physical Exam 2 Vital Signs (Past 24 Hours): Last Vital Signs Temp 36.5 C 07/30/18 15:04 Pulse 82 07/30/18 16:00 Resp 20 07/30/18 15:04 BP 131/72 07/30/18 15:04 Pulse Ox 89 L 07/30/18 15:04 Physical Exam: Physical Exam: Vitals signs as noted above General Appearance:Obese, no apparent distress Head: normocephalic, Atraumatic Eyes: normal inspection, EOMI Neck: supple, Trachea midline Respiratory/Chest: Decreased breath sounds, CTA Cardiovascular: Irregularly Irregular, No murmur Abdomen/GI:Soft, Non tender, Bowel sounds present Extremities/Musculoskelatal:normal inspection, marked B/L LE edema, presacral edema Neurologic/Psych:grossly no focal neurological deficits, +dementia Skin: normal color, warm Results & Data Laboratory Results Short CBC 07/30/18 Range/Units 12:16 WBC 12.84 H (4.8-10.8) K/uL Hgb 14.1 (12.0-16.0) g/dL Hct 45.1 (37-47) % Plt Count 213 (130-400) K/uL BMP 07/29/18 07/30/18 18:48 12:16 Sodium 140 141 Potassium 3.8 3.7 Chloride 89 L 90 L Carbon Dioxide 47 H* 48 H* BUN 25 H 24 H Creatinine 0.87 1.04 Glucose 187 H 151 H Calcium 9.2 9.5 Liver Function 07/29/18 Range/Units 18:48 Total Bilirubin 0.8 (0.2-1) mg/dl AST 18 (15-37) U/L ALT 31 (12-78) U/L Alkaline Phosphatase 70 (45-117) U/L Albumin 2.9 L (3.4-5.0) gm/dl
[2018-07-30] MEDS: LATANOPROST 0.005% OP SOLN 2.5 ML BTL OPB SCH (20:57)
[2018-07-31] MEDS: IPRATROPIUM BROMIDE NEB SOLN 0.02% 2.5 ML VIAL INH SCH ×4 (03:14→20:28)
[2018-07-31] MEDS: LEVALBUTEROL 1.25MG/0.5ML NEB INH SCH ×4 (03:14→20:28)
[2018-07-31] MEDS: LEVOTHYROXINE SODIUM 100 MCG TABLET PO SCH ×2 (05:45→05:57)
[2018-07-31 08:38] LABS: BUN Creatinine Ratio 24.6 (10-20); Creatinine Clr Calc Pharmacy 48.6 ml/min; Est GFR (African American) 61.7; Est GFR (Non-African American) 53.3; Potassium 3.3 mmol/L (3.5-5.1)
[2018-07-31] MEDS: SPIRONOLACTONE 25 MG TAB PO SCH ×2 (09:14→21:05)
[2018-07-31] MEDS: APIXABAN 5 MG TABLET PO SCH ×2 (09:15→21:07)
[2018-07-31] MEDS: predniSONE 10 MG TABLET PO SCH (09:15)
[2018-07-31] MEDS: ASPIRIN 81 MG CHEW PO SCH (09:15)
[2018-07-31] MEDS: DOCUSATE SODIUM/SENNA 50/8.6MG TAB PO SCH ×2 (09:15→21:07)
[2018-07-31] MEDS: ROSUVASTATIN CALCIUM 20 MG TAB PO SCH (09:15)
[2018-07-31] MEDS: METOPROLOL SUCC 50MG EXT REL TAB PO SCH (09:16)
[2018-07-31] MEDS: FUROSEMIDE 40 MG in SYRINGE 0 ML IV SCH ×2 (10:04→17:09)
[2018-07-31] MEDS ORDERED: POTASSIUM CHLORIDE 10 MEQ TABCR PO STA ×2 (10:51→18:21)
--- NOTE | 2018-07-31 14:34 | Palliative Care Progress Note ---
Date of Service July 31, 2018 Assessment & Plan (1) Goals of care, counseling/discussion: -87 year old female patient with PMH COPD, oxygen-dependence, chronic hypercapnia, atrial fibrillation, hypothyroidism, ambulatory dysfunction and vascular dementia, presented to the hospital 10 days ago for respiratory distress and altered mental status. Being treated for COPD exacerbation and chronic diastolic heart failure. Patient has been refusing bipap, lab work, and ultrasound for possible thoracentesis. -Palliative care is consulted to assist with establishing goals of care and medical decision making in a complex case. -Patient unfortunately is not able to communicate her wishes today. She is awake but more drowsy and confused. -Have not received call back yet from guardian agency. -In the past, if patient was to be made DNR, two physicians had to verify that it was recommended, then the legal guardian would interface with the family to make the decision. -The patient's is not to make decisions for patient. -Will continue to follow and be of any help possible. (2) Acute on chronic respiratory failure with hypoxia and hypercapnia: (3) Pleural effusion: (4) COPD (chronic obstructive pulmonary disease): (5) Diastolic CHF: (6) Cerebrovascular disease: (7) Dementia: (8) Ambulatory dysfunction: (9) Altered mental status: Subjective Patient more drowsy and confused today. Not able to participate in much conversation. Review of Systems Unobtainable due to cognitive status Physical Exam 2 Vital Signs (Past 24 Hours): Last Vital Signs Temp 36.4 C L 07/31/18 11:41 Pulse 62 07/31/18 14:00 Resp 18 07/31/18 14:00 BP 133/82 07/31/18 11:41 Pulse Ox 97 07/31/18 14:00 Constitutional: + ill appearing and + overweight; + not healthy appearing ENMT: Ears: no hearing impairment Neck: normal visual inspection and trachea midline Respiratory: no respiratory distress Auscultation: + diminished lung sounds and + crackles (bases) Cardiovascular: Rate/Rhythm: regular rate; + abnormal rhythm Vessels: no JVD Extremities: + edema (non-pitting to BLE) Gastrointestinal (Abdomen): Inspection/Auscultation: abdomen normal to inspection and normal bowel sounds; abdomen not distended Percussion/ Palpation: abdomen soft; abdomen nontender Skin: no rashes, warm and dry Neurologic: awake (but drowsy) Psychiatric: Orientation: oriented to person; + not alert Time Spent Midlevel 25 minutes with >50% of time spent at bedside assessing patient and coordinating care with case management.
--- NOTE | 2018-07-31 18:21 | Hospitalist Progress Note ---
Date of Service July 31, 2018 Assessment & Plan (1) Acute on chronic respiratory failure with hypoxia and hypercapnia: Acute on chronic hypoxic and hypercapnic respiratory failure. 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 Received IV methylprednisolone Continue bronchodilators. Will request Pulm to re-eval if deteriorates Need to address goals of care Appreciate Palliative Care Input Taper down prednisone tomorrow (3) Diastolic CHF: Acute on chronic left ventricular diastolic heart failure. Repeat CXR worsened fluid overload Diltiazem disconued as contributing to edema Continue IV lasix Also added Aldactone Monitor electrolytes, daily weight ECHO:RV pressure overload, EF:55-60%, Moderate to severe TR Pacemaker interrogated Appreciate Cardiology Input continue diuresis (4) Altered mental status: Confused at time of admission. Probable metabolic encephalopathy secondary to respiratory failure. Mental status fluctuates Has been refusing BiPAP on and off (5) Atrial fibrillation: Chtonic atrial fibrillation Rate controlled Continue metoprolol Diltiazem held as might be contributing to chronic edema Continue Apixaban. Appreciate Cardiology Input (6) Hypertension: Stable Continue metoprolol monitor (7) Cerebrovascular disease: Continue aspirin, statin. (8) Hypothyroidism: Continue levothyroxine. (9) Ambulatory dysfunction: Has not been ambulatory for some time. Ambulatory dysfunction probably multifactorial. PT and OT evaluations obtained (10) Dementia: Monitor for delirium. (11) Constipation: Continue bowel regimen (12) DVT prophylaxis: Non ambulatory. Continue apixaban. (13) Discharge planning issues: Anticipated return to [facility] when medically stable. Will need BiPAP for chronic resp failure. Case Management consulted. Patient currently has a court-appointed guardianship. Discharge disposition to be determined by legally designated parties. May need to readdress code status Palliative care following Subjective Patient is seen and examined at bedside Patient alert, awake during my encounter Mostly not communicative when asked questions Denies chest pain Palliative care following Physical Exam 2 Vital Signs (Past 24 Hours): Last Vital Signs Temp 36.3 C L 07/31/18 15:27 Pulse 88 07/31/18 15:27 Resp 26 H 07/31/18 15:27 BP 101/63 07/31/18 15:27 Pulse Ox 97 07/31/18 15:27 Physical Exam: Physical Exam: Vitals signs as noted above General Appearance:Obese, no apparent distress Head: normocephalic, Atraumatic Eyes: normal inspection, EOMI Neck: supple, Trachea midline Respiratory/Chest: Decreased breath sounds, CTA Cardiovascular: Irregularly Irregular, No murmur Abdomen/GI:Soft, Non tender, Bowel sounds present Extremities/Musculoskelatal:normal inspection, marked B/L LE edema, presacral edema Neurologic/Psych:grossly no focal neurological deficits, +dementia Skin: normal color, warm Results & Data Laboratory Results [facility] 07/31/18 07:21 Sodium 140 Potassium 3.3 L Chloride 91 L Carbon Dioxide 47 H* BUN 24 H Creatinine 0.97 Glucose 106 H Calcium 9.0
--- NOTE | 2018-07-31 18:26 | Cardiology Progress Note ---
Date of Service July 31, 2018 Assessment & Plan (1) Acute on chronic respiratory failure with hypoxia and hypercapnia: Appear to be oxygenating well though with CO2 retention hypercapnic respiratory failure on presentation (2) Atrial fibrillation: No timing regarding chronicity, available patient anticoagulated Patient on combination of metoprolol and diltiazem for rate control. Diltiazem may be aggravating chronic edema Pacemaker interrogated pacemaker functioning appropriately patient in persistent atrial fibrillation with mode switching at times Diltiazem discontinued will increase Toprol-XL to 50 mg a.m. 25 mg in p.m. (3) S/P placement of cardiac pacemaker: Device placed 2009 dual-chamber [employer] Patient follows with [facility] physician group for pacemaker follow-up and recent (4) Altered mental status: Chronic hypercapnia remains an issue. Diminished respiratory effort of concern especially in the light of a enlarging right pleural effusion. Patient may warrant thoracentesis to improve respiratory efforts Exam reflects need for additional diuretics with marked presacral edema Would add spironolactone to help potassium retention (5) Pleural effusion: Right pleural effusion is large would recommend ultrasound to quantify the effusion, francisco for possible thoracentesis given baseline hypoventilation status Cardiogram demonstrates elevated right heart pressures flattening of the intraventricular septum l normal systolic function with moderate to severe pulmonary hypertension (6) Diastolic CHF: Diagnosis on chart no recent assessment of LV function, valvular disease available Recommend echocardiogram Hypoalbuminemia is contributing to complaints. Patient initially refused echocardiogram today. Would continue IV diuretics for time being supplement potassium and spironolactone to help with contraction alkalosis Additional potassium ordered today and spironolactone increased to 12.5 g twice daily Subjective Patient seen and examined chart medications telemetry reviewed. Patient voices no complaints though minimally conversant today. Did allow limited echocardiogram earlier Physical Exam 2 Vital Signs (Past 24 Hours): Last Vital Signs Temp 36.3 C L 07/31/18 15:27 Pulse 88 07/31/18 15:27 Resp 26 H 07/31/18 15:27 BP 101/63 07/31/18 15:27 Pulse Ox 97 07/31/18 15:27 Constitutional: + obese, + lethargic and + edematous ENMT: external ear and nose normal, oropharynx normal Neck: + thick neck Respiratory: Diminished breath sounds diffusely right greater than left Cardiovascular: Irregularly irregular Marked presacral edema is prepped Skin: no rashes, warm and dry Results & Data Laboratory Results Laboratory Results - last 24 hr 07/31/18 07:21 Sodium 140 Potassium 3.3 L Chloride 91 L Carbon Dioxide 47 H* Anion Gap 2.0 L BUN 24 H Creatinine 0.97 Est Cr Clr Drug Dosing 48.6 Est GFR ( Amer) 61.7 Est GFR (Non-Af Amer) 53.3 BUN/Creatinine Ratio 24.6 H Glucose 106 H Calcium 9.0
[2018-07-31] MEDS: METOPROLOL SUCC 25MG EXT REL TAB PO SCH (21:04)
[2018-07-31] MEDS: LATANOPROST 0.005% OP SOLN 2.5 ML BTL OPB SCH (21:08)
[2018-08-01] MEDS: IPRATROPIUM BROMIDE NEB SOLN 0.02% 2.5 ML VIAL INH SCH ×4 (02:20→21:05)
[2018-08-01] MEDS: LEVALBUTEROL 1.25MG/0.5ML NEB INH SCH ×4 (02:22→21:06)
[2018-08-01 07:30] LABS: Hematocrit (blood only) 44.2 % (37-47); Hemoglobin 13.7 g/dL (12.0-16.0); Mean Corpuscular Volume 98.2 fL (80-100); Mean Platelet Volume 9.4 fL (7.4-10.4); Platelet Count 194 K/uL (130-400); RDW Coefficient of Variation 15.1 % (11.5-14.5); White Blood Count 8.83 K/uL (4.8-10.8)
[2018-08-01 08:05] LABS: Creatinine Clr Calc Pharmacy 47.9 ml/min; Est GFR (Non-African American) 52.6
[2018-08-01] MEDS: FUROSEMIDE 40 MG in SYRINGE 0 ML IV SCH ×2 (08:31→16:58)
[2018-08-01] MEDS: APIXABAN 5 MG TABLET PO SCH ×2 (08:49→21:30)
[2018-08-01] MEDS: DOCUSATE SODIUM/SENNA 50/8.6MG TAB PO SCH ×2 (08:49→21:30)
[2018-08-01] MEDS: METOPROLOL SUCC 50MG EXT REL TAB PO SCH (08:49)
[2018-08-01] MEDS: ROSUVASTATIN CALCIUM 20 MG TAB PO SCH (08:49)
[2018-08-01] MEDS: ASPIRIN 81 MG CHEW PO SCH (08:50)
[2018-08-01] MEDS: SPIRONOLACTONE 25 MG TAB PO SCH ×2 (08:50→16:57)
[2018-08-01] MEDS: predniSONE 10 MG TABLET PO SCH (08:50)
--- NOTE | 2018-08-01 16:44 | Hospitalist Progress Note ---
Date of Service August 01, 2018 Assessment & Plan (1) Acute on chronic respiratory failure with hypoxia and hypercapnia: Acute on chronic hypoxic and hypercapnic respiratory failure. 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 Received IV methylprednisolone Continue bronchodilators. Will request Pulm to re-eval if deteriorates Need to address goals of care Appreciate Palliative Care Input Continue to taper down prednisone (3) Diastolic CHF: Acute on chronic left ventricular diastolic heart failure. Repeat CXR worsened fluid overload Diltiazem discontinued as contributing to edema Also added Aldactone- dose increased to 12.5mg BID Monitor electrolytes, daily weight ECHO:RV pressure overload, EF:55-60%, Moderate to severe TR Pacemaker interrogated Appreciate Cardiology Input Metoprolol increased to to 50 mg a.m. 25 mg in p.m. Continue IV lasix (4) Altered mental status: Confused at time of admission. Probable metabolic encephalopathy secondary to respiratory failure. Mental status fluctuates Has been refusing BiPAP on and off (5) Atrial fibrillation: Chtonic atrial fibrillation Rate controlled Continue metoprolol as above Diltiazem held as might be contributing to chronic edema Continue Apixaban. Appreciate Cardiology Input (6) Hypertension: Stable Continue metoprolol monitor (7) Cerebrovascular disease: Continue aspirin, statin. (8) Hypothyroidism: Continue levothyroxine. (9) Ambulatory dysfunction: Has not been ambulatory for some time. Ambulatory dysfunction probably multifactorial. PT and OT evaluations obtained (10) Dementia: Monitor for delirium. (11) Constipation: Continue bowel regimen (12) DVT prophylaxis: Non ambulatory. Continue apixaban. (13) Discharge planning issues: Anticipated return to [facility] when medically stable. Will need BiPAP for chronic resp failure. Case Management consulted. Patient currently has a court-appointed guardianship. Discharge disposition to be determined by legally designated parties. May need to readdress code status Palliative care following Subjective Patient is seen and examined at bedside Drowsy this morning Took pills per staff BiPAP PRN Mostly non verbal today No family at bedside Vitals stable, Afebrile Physical Exam 2 Vital Signs (Past 24 Hours): Last Vital Signs Temp 36.7 C 08/01/18 15:28 Pulse 80 08/01/18 15:28 Resp 20 08/01/18 15:28 BP 124/59 L 08/01/18 15:28 Pulse Ox 91 08/01/18 15:28 Physical Exam: Physical Exam: Vitals signs as noted above General Appearance:Obese, no apparent distress Head: normocephalic, Atraumatic Eyes: normal inspection, EOMI Neck: supple, Trachea midline Respiratory/Chest: Decreased breath sounds, CTA Cardiovascular: Irregularly Irregular, No murmur Abdomen/GI:Soft, Non tender, Bowel sounds present Extremities/Musculoskelatal:normal inspection, marked B/L LE edema, presacral edema Neurologic/Psych:grossly no focal neurological deficits, +dementia Skin: normal color, warm Results & Data Laboratory Results Short CBC 08/01/18 Range/Units 07:02 WBC 8.83 (4.8-10.8) K/uL Hgb 13.7 (12.0-16.0) g/dL Hct 44.2 (37-47) % Plt Count 194 (130-400) K/uL BMP 08/01/18 07:02 Sodium 141 Potassium 4.0 D Chloride 92 L Carbon Dioxide 47 H* BUN 20 H Creatinine 0.98 Glucose 106 H Calcium 9.0
[2018-08-01] MEDS: LATANOPROST 0.005% OP SOLN 2.5 ML BTL OPB SCH (21:32)
[2018-08-01] MEDS: METOPROLOL SUCC 25MG EXT REL TAB PO SCH (21:37)
[2018-08-02] MEDS: LEVALBUTEROL 1.25MG/0.5ML NEB INH SCH ×4 (02:26→21:01)
[2018-08-02] MEDS: IPRATROPIUM BROMIDE NEB SOLN 0.02% 2.5 ML VIAL INH SCH ×4 (02:26→21:01)
[2018-08-02] MEDS: LEVOTHYROXINE SODIUM 100 MCG TABLET PO SCH (05:55)
[2018-08-02 07:43] LABS: BUN Creatinine Ratio 23.2 (10-20); Calcium 8.8 mg/dl (8.5-10.1); Creatinine Clr Calc Pharmacy 42.4 ml/min; Est GFR (African American) 52.4; Est GFR (Non-African American) 45.2; Potassium 3.5 mmol/L (3.5-5.1)
--- NOTE | 2018-08-02 08:18 | XRay Report ---
SINGLE VIEW CHEST CLINICAL HISTORY: Follow-up CHF. FINDINGS: An AP, portable, upright chest radiograph is compared to study dated 07/29/2018. Correlation is made with chest CT dated 11/07/2017. The examination is degraded by portable technique and patient rotation. A 2-lead cardiac pacemaker is unchanged in position and partially obscures the left mid zari st. The heart is enlarged and there is atherosclerotic calcification of the thoracic aorta. Pulmonary vascular congestion has almost completely resolved from previous. There are right larger than left p leural effusions with bibasilar consolidation. Chronic interstitial thickening is similar to previous No pneumothorax is seen. The skeletal structures are osteopenic. Arthritic change is noted in the sh oulders and thoracic spine. There are healed right-sided rib fractures. IMPRESSION: 1. Cardiomegaly and cardiac pacemaker. Pulmonary vascular congestion has almost completely resolved. 2. Right larger than left pleural effusions with bibasilar consolidation are similar to previous. Electronically signed by: Nicolás Ochoa M.D. 08/02/2018 8:17 AM
[2018-08-02] MEDS: APIXABAN 5 MG TABLET PO SCH ×3 (08:31→20:24)
[2018-08-02] MEDS: ASPIRIN 81 MG CHEW PO SCH ×2 (08:31→12:11)
[2018-08-02] MEDS: ROSUVASTATIN CALCIUM 20 MG TAB PO SCH ×2 (08:31→12:12)
[2018-08-02] MEDS: SPIRONOLACTONE 25 MG TAB PO SCH ×3 (08:32→18:12)
[2018-08-02] MEDS: FUROSEMIDE 40 MG in SYRINGE 0 ML IV SCH (08:32)
[2018-08-02] MEDS: DOCUSATE SODIUM/SENNA 50/8.6MG TAB PO SCH ×3 (08:33→20:24)
[2018-08-02] MEDS: predniSONE 10 MG TABLET PO SCH ×2 (08:34→12:13)
[2018-08-02] MEDS: METOPROLOL SUCC 50MG EXT REL TAB PO SCH (08:34)
--- NOTE | 2018-08-02 17:51 | Hospitalist Progress Note ---
Date of Service August 02, 2018 Assessment & Plan (1) Acute on chronic respiratory failure with hypoxia and hypercapnia: Acute on chronic hypoxic and hypercapnic respiratory failure. Acute COPD Exacerbation Respiratory acidosis and Metabolic alkalosis Metabolic Encephalopathy CHF contributing to respiratory failure as well Continue supplemental oxygen and BiPAP as needed Needs BiPAP arranged upon discharge Titrate Oxygen to keep Sats > 88-90% CXR today: Improved Vascular congestion (2) COPD (chronic obstructive pulmonary disease): O2 dependent COPD with exacerbation. Received IV methylprednisolone Continue bronchodilators Need to address goals of care Appreciate Palliative Care Input Continue prednisone taper (3) Diastolic CHF: Acute on chronic left ventricular diastolic heart failure. Diltiazem discontinued as contributing to edema Also added Aldactone- dose increased to 12.5mg BID Monitor electrolytes, daily weight ECHO:RV pressure overload, EF:55-60%, Moderate to severe TR Pacemaker interrogated Appreciate Cardiology Input Metoprolol increased to to 50 mg a.m. 25 mg in p.m. Decreased IV lasix to 40mg daily CXR today showed improved vascular congestion (4) Altered mental status: Confused at time of admission. Probable metabolic encephalopathy secondary to respiratory failure. Mental status fluctuates Has been refusing BiPAP on and off (5) Atrial fibrillation: Chronic atrial fibrillation Rate controlled Continue metoprolol as above Diltiazem held as might be contributing to chronic edema Continue Apixaban. Appreciate Cardiology Input (6) Hypertension: Stable Continue metoprolol monitor (7) Cerebrovascular disease: Continue aspirin, statin. (8) Hypothyroidism: Continue levothyroxine. (9) Ambulatory dysfunction: Has not been ambulatory for some time. Ambulatory dysfunction probably multifactorial. PT and OT evaluations obtained (10) Dementia: Monitor for delirium. (11) Constipation: Continue bowel regimen (12) DVT prophylaxis: Non ambulatory. Continue apixaban. (13) Discharge planning issues: Anticipated return to [facility] when medically stable. Will need BiPAP for chronic resp failure. Case Management consulted. Patient currently has a court-appointed guardianship. Discharge disposition to be determined by legally designated parties. May need to readdress code status Palliative care following Subjective Patient is seen and examined at bedside Alert, awake this morning No distress Denies chest pain, dyspnea, dizziness, nausea No family at bedside CXR today: Improved vascular congestion Physical Exam 2 Vital Signs (Past 24 Hours): Last Vital Signs Temp 36.7 C 08/02/18 14:53 Pulse 84 01/06/19 14:53 Resp 20 08/02/18 14:53 BP 99/61 L 08/02/18 14:53 Pulse Ox 90 08/02/18 14:53 Physical Exam: Physical Exam: Vitals signs as noted above General Appearance:Obese, no apparent distress Head: normocephalic, Atraumatic Eyes: normal inspection, EOMI Neck: supple, Trachea midline Respiratory/Chest: Decreased breath sounds, CTA Cardiovascular: Irregularly Irregular, No murmur Abdomen/GI:Soft, Non tender, Bowel sounds present Extremities/Musculoskelatal:normal inspection, marked B/L LE edema, presacral edema improving Neurologic/Psych:grossly no focal neurological deficits, +dementia Skin: normal color, warm Results & Data Laboratory Results [facility] 08/02/18 06:41 Sodium 139 Potassium 3.5 Chloride 92 L Carbon Dioxide 46 H* BUN 26 H Creatinine 1.11 Glucose 110 H Calcium 8.8
--- NOTE | 2018-08-02 19:38 | Pulmonary Consultation ---
Date of Consultation August 02, 2018 History of Present Illness Attending Physician: Nathan Collier MD Allergies Allergy/AdvReac Type Severity Reaction Status Date / Time Penicillins Allergy Unknown RXN TO Verified 07/20/18 06:19 AMOXICILLIN adhesive AdvReac Mild RXN TO TAPE Verified 07/20/18 06:19 Home Medications Home Medications Medication Instructions Recorded Confirmed Type acetaminophen 650 mg PO Q6H PRN MDD 3gm/24hr 07/20/18 07/20/18 History apixaban [Eliquis] 5 mg PO BID 07/20/18 07/20/18 History aspirin 81 mg PO DAILY 07/20/18 07/20/18 History atorvastatin [Lipitor] 40 mg PO DAILY 07/20/18 07/20/18 History bisacodyl [Dulcolax (bisacodyl)] 10 mg TN DAILY PRN 07/20/18 07/20/18 History cholecalciferol (vitamin D3) 4,000 unit PO DAILY 07/20/18 07/20/18 History [Vitamin D3] clotrimazole-betamethasone 1 applic TOPICAL BID 07/20/18 07/20/18 History [Lotrisone] diltiazem HCl 120 mg PO DAILY 07/20/18 07/20/18 History furosemide [Lasix] 40 mg PO DAILY 07/20/18 07/20/18 History ipratropium-albuterol 3 ml INHALATION Q4 PRN 07/20/18 07/20/18 History latanoprost 1 drp OPB PM 07/20/18 07/20/18 History levalbuterol HCl 0.63 mg INHALATION Q4 PRN 07/20/18 07/20/18 History levothyroxine 100 mcg PO DAILY 07/20/18 07/20/18 History magnesium hydroxide [Milk of 2,400 mg PO UD PRN 07/20/18 07/20/18 History Magnesia] metoprolol succinate 50 mg PO DAILY 07/20/18 07/20/18 History oxybutynin chloride 5 mg PO DAILY 07/20/18 07/20/18 History potassium chloride 20 meq PO DAILY 07/20/18 07/20/18 History sennosides-docusate sodium [Senna 1 tab PO BID 07/20/18 07/20/18 History with Docusate Sodium] sodium phosphates [Fleet Enema] 118 ml TN DAILY PRN 07/20/18 07/20/18 History Patient History Medical History Hypertension (Chronic) Cerebrovascular disease (Chronic) "ischemic stroke left basal ganglia 2009" Hypothyroidism (Chronic) Dementia (Chronic) "mild" Urinary incontinence (Chronic) COPD (chronic obstructive pulmonary disease) (Chronic) Carotid artery disease (Chronic) "carotid duplex [facility] 11/29/16: bilat plaque, moderate ECA stenosis bilat, no significant ICA stenosis" Symptomatic bradycardia (Chronic) "S/P pacemaker" Diastolic CHF (Chronic) Atrial fibrillation (Chronic) Surgical History S/P placement of cardiac pacemaker (Chronic) Family History Other Family history unobtainable due to patient's condition Social History Current Living Situation: Skilled Nursing Current Living Situation Comment: [facility] Other Information That Helps Us Care for You: No Feels Safe at Home: Yes Safety Concerns: Feels Safe At This Time Smoking Status: Never smoker Hx Alcohol Use: No Hx Substance Use: No Beliefs That Will Affect Care: None Communication Ability: Impaired Physical Exam 2 Vital Signs (Past 24 Hours): Last Vital Signs Temp 36.7 C 08/02/18 14:53 Pulse 84 08/02/18 18:10 Resp 20 08/02/18 14:53 BP 114/84 08/02/18 18:10 Pulse Ox 90 08/02/18 14:53
--- NOTE | 2018-08-02 19:43 | Pulmonology Progress Note ---
Date of Service August 02, 2018 Assessment & Plan (1) Acute on chronic respiratory failure with hypoxia and hypercapnia: 1. Acute on chronic respiratory failure, hypercapnia, likely related to COPD and ongoing diastolic heart failure. 2. Diastolic heart failure and treated with diuretics. 3. COPD, gold level 2, home O2 dependent. She is senior care resident. 4. A. fib, rate controlled. 5. Hypertension. Well controlled. 6. Hypothyroidism. 7. Right-sided pleural effusion. Plan: 1. Continue oxygen with nasal cannula daytime and BiPAP nocturnally. 2. Hypercapnia become an issue in this patient with CHF, COPD, and literally immobile. 3. Continue with diuresis. 4. Oral intake is adequate, the brought her to sandwich and apparently she finished it according to him. 5. I will evaluate her right-sided pleural effusion in the morning with ultrasound. 6. Prednisone as you are doing, slow taper. She is only on 10 mg currently. 7. Bronchodilator. 8. Discussed with the patient and the in details. 9. Palliative care should be involved in this case. 10. Discussed with the guardian to change CODE STATUS to DO NOT RESUSCITATE given the patient overall comorbidity. 11. Discussed with Dr. Collier. Thank you, will follow. Subjective The patient is poor historian, however she was unable to give me a good history. Her was at the bedside answering most of the questions, however he was given me information from 4 years ago. Review of system otherwise was unobtainable. Physical Exam 2 Vital Signs (Past 24 Hours): Last Vital Signs Temp 36.7 C 08/02/18 14:53 Pulse 84 08/02/18 18:10 Resp 20 08/02/18 14:53 BP 114/84 08/02/18 18:10 Pulse Ox 90 08/02/18 14:53 Physical Exam: S1-S2, regular rate and rhythm, vital signs are stable, lungs are diminished breath sounds, abdomen is benign, edema in the periphery. Results & Data Laboratory Results Labs were reviewed showing stable hematocrit, acute on chronic hypercapnic respiratory failure, stable kidney function. Diagnostic Findings Chest x-ray with moderate right-sided pleural effusion. Cardiomegaly noted.
[2018-08-02] MEDS: METOPROLOL SUCC 25MG EXT REL TAB PO SCH (20:24)
[2018-08-02] MEDS: LATANOPROST 0.005% OP SOLN 2.5 ML BTL OPB SCH (20:25)
[2018-08-03] MEDS: IPRATROPIUM BROMIDE NEB SOLN 0.02% 2.5 ML VIAL INH SCH ×3 (02:30→14:10)
[2018-08-03] MEDS: LEVALBUTEROL 1.25MG/0.5ML NEB INH SCH ×3 (02:30→14:11)
[2018-08-03] MEDS: LEVOTHYROXINE SODIUM 100 MCG TABLET PO SCH (06:32)
[2018-08-03 07:52] LABS: BUN Creatinine Ratio 23.2 (10-20); Creatinine Clr Calc Pharmacy 44.3 ml/min; Est GFR (African American) 55.4; Est GFR (Non-African American) 47.8; Potassium 3.5 mmol/L (3.5-5.1)
[2018-08-03] MEDS: METOPROLOL SUCC 50MG EXT REL TAB PO SCH (08:33)
[2018-08-03] MEDS: APIXABAN 5 MG TABLET PO SCH (08:33)
[2018-08-03] MEDS: ASPIRIN 81 MG CHEW PO SCH (08:33)
[2018-08-03] MEDS: SPIRONOLACTONE 25 MG TAB PO SCH ×2 (08:33→17:31)
[2018-08-03] MEDS: DOCUSATE SODIUM/SENNA 50/8.6MG TAB PO SCH (08:34)
[2018-08-03] MEDS: predniSONE 10 MG TABLET PO SCH (08:34)
[2018-08-03] MEDS: ROSUVASTATIN CALCIUM 20 MG TAB PO SCH (08:34)
[2018-08-03] MEDS ORDERED: FUROSEMIDE 40 MG in SYRINGE 0 ML IV SCH (09:00)
--- NOTE | 2018-08-03 11:58 | Hospitalist Progress Note ---
Date of Service August 03, 2018 Assessment & Plan (1) Acute on chronic respiratory failure with hypoxia and hypercapnia: Acute on chronic hypoxic and hypercapnic respiratory failure. Acute COPD Exacerbation Respiratory acidosis and Metabolic alkalosis Metabolic Encephalopathy CHF contributing to respiratory failure as well Continue supplemental oxygen and BiPAP as needed Needs BiPAP arranged upon discharge Titrate Oxygen to keep Sats > 88-90% CXR on 08/02/18 : Improved Vascular congestion Continue current management (2) COPD (chronic obstructive pulmonary disease): O2 dependent COPD with exacerbation. Received IV methylprednisolone Continue bronchodilators Need to address goals of care Appreciate Palliative Care Input Continue prednisone slow taper Appreciate Pulmonology Input Discussed with Legal Guardian and update patient's status Needs to use BiPAP QHS (3) Diastolic CHF: Acute on chronic left ventricular diastolic heart failure. Diltiazem discontinued as contributing to edema Also added Aldactone- dose increased to 12.5mg BID Monitor electrolytes, daily weight ECHO:RV pressure overload, EF:55-60%, Moderate to severe TR Pacemaker interrogated Appreciate Cardiology Input Metoprolol increased to to 50 mg a.m. 25 mg in p.m. Decreased IV lasix to 40mg daily>>Plan to transition to Po lasix upon discharge CXR on 08/02/18 :showed improved vascular congestion (4) Altered mental status: Confused at time of admission. Probable metabolic encephalopathy secondary to respiratory failure. Mental status improved to baseline Has been refusing BiPAP on and off (5) Atrial fibrillation: Chronic atrial fibrillation Rate controlled Continue metoprolol as above Diltiazem held as might be contributing to chronic edema Continue Apixaban. Appreciate Cardiology Input (6) Hypertension: Stable Continue metoprolol monitor (7) Cerebrovascular disease: Continue aspirin, statin. (8) Hypothyroidism: Continue levothyroxine. (9) Ambulatory dysfunction: Has not been ambulatory for some time. Ambulatory dysfunction probably multifactorial. PT and OT evaluations obtained (10) Dementia: Monitor for delirium. (11) Constipation: Continue bowel regimen (12) DVT prophylaxis: Non ambulatory. Continue apixaban. (13) Discharge planning issues: Anticipated return to [facility] when medically stable. BiPAP for chronic resp failure arranged at [facility] Case Management consulted. Patient currently has a court-appointed guardianship. Discharge disposition to be determined by legally designated parties. May need to readdress code status at [facility] Palliative care following Subjective Patient is seen and examined at bedside Doing better today No apparent distress She denies any chest pain, dyspnea, dizziness, nausea, abd pain No family at bedside Physical Exam 2 Vital Signs (Past 24 Hours): Last Vital Signs Temp 36.7 C 08/03/18 07:40 Pulse 73 08/03/18 07:40 Resp 20 08/03/18 07:40 BP 107/72 08/03/18 07:40 Pulse Ox 94 08/03/18 07:40 Physical Exam: Physical Exam: Vitals signs as noted above General Appearance:Obese, no apparent distress Head: normocephalic, Atraumatic Eyes: normal inspection, EOMI Neck: supple, Trachea midline Respiratory/Chest: Decreased breath sounds, CTA Cardiovascular: Irregularly Irregular, No murmur Abdomen/GI:Soft, Non tender, Bowel sounds present Extremities/Musculoskelatal:normal inspection, marked B/L LE edema, presacral edema improved Neurologic/Psych:grossly no focal neurological deficits, +dementia Skin: normal color, warm Results & Data Laboratory Results [facility] 08/03/18 06:48 Sodium 141 Potassium 3.5 Chloride 96 L Carbon Dioxide 40 H BUN 25 H Creatinine 1.06 Glucose 103 H Calcium 9.0 Medications Administered Current Inpatient Medications Apixaban (Eliquis) 5 mg PO BID [facility] Stop: 08/19/18 10:54 Last Admin: 08/03/18 08:33 Dose: 5 mg Aspirin (Aspirin) 81 mg PO DAILY [facility] Stop: 08/19/18 10:54 Last Admin: 08/03/18 08:33 Dose: 81 mg Bisacodyl (Dulcolax) 10 mg MD DAILY PRN PRN Reason: Constipation Stop: 08/20/18 12:48 Bisacodyl (Dulcolax) 5 mg PO DAILY PRN PRN Reason: Constipation Stop: 08/27/18 22:15 Last Admin: 07/29/18 20:06 Dose: 5 mg Diltiazem HCl (Tiazac) 120 mg PO DAILY MONICA Stop: 08/19/18 10:54 Last Admin: 07/29/18 07:31 Dose: 120 mg Furosemide (Lasix) 40 mg PO DAILY [facility]ICA Stop: 08/29/18 08:59 Furosemide 40 mg/ Syringe 4 mls @ 4 mls/min IV DAILY MONICA Stop: 09/02/18 08:59 Last Admin: 08/03/18 08:35 Dose: 4 mls/min Ipratropium [place] (Atrovent 0.02% 0.5mg/2.5ml) 0.5 mg INH Q6R [facility] Stop: 08/19/18 10:54 Last Admin: 08/03/18 07:11 Dose: 0.5 mg Ipratropium [place] (Atrovent 0.02% 0.5mg/2.5ml) 0.5 mg INH Q2H PRN PRN Reason: SOB/wheezing Stop: 08/19/18 11:11 Last Admin: 07/21/18 21:37 Dose: 0.5 mg Latanoprost (Xalatan Oph) 1 drops OPB PM [facility] Stop: 08/19/18 20:59 Last Admin: 08/02/18 20:25 Dose: 1 drops Levalbuterol HCl (Xopenex 1.25mg/0.5ml Neb) 1.25 mg INH Q6R [facility] Stop: 08/19/18 10:54 Last Admin: 08/03/18 07:11 Dose: 1.25 mg Levalbuterol HCl (Xopenex 1.25mg/0.5ml Neb) 1.25 mg INH Q2H PRN PRN Reason: SOB/wheezing Stop: 08/19/18 11:11 Last Admin: 07/21/18 21:37 Dose: 1.25 mg Levothyroxine Sodium (Synthroid) 100 mcg PO DAILYBB [facility] Stop: 08/19/18 11:14 Last Admin: 08/03/18 06:32 Dose: 100 mcg Metoprolol Succinate (Toprol Xl) 50 mg PO QAM [facility] Stop: 08/21/18 08:59 Last Admin: 08/03/18 08:33 Dose: 50 mg Metoprolol Succinate (Toprol Xl) 25 mg PO QPM [facility] Stop: 08/30/18 20:59 Last Admin: 08/02/18 20:24 Dose: 25 mg Metoprolol Tartrate (Lopressor) 5 mg IV Q6 PRN PRN Reason: hr>110 Stop: 08/19/18 11:59 Miscellaneous (Tap Water Enema) 1 ea MD DAILY PRN PRN Reason: Constipation Stop: 08/28/18 10:44 Polyethylene Glycol (Miralax Powder Packet) 17 gm PO DAILY PRN PRN Reason: Constipation Stop: 08/27/18 22:16 Last Admin: 07/29/18 20:06 Dose: 17 gm Prednisone (Prednisone) 10 mg PO DAILY [facility] Stop: 08/05/18 08:59 Last Admin: 08/03/18 08:34 Dose: 10 mg Rosuvastatin Calcium (Crestor) 20 mg PO QAM [facility] Stop: 08/26/18 08:59 Last Admin: 08/03/18 08:34 Dose: 20 mg Senna/Docusate Sodium (Senokot S) 1 tab PO BID [facility] Stop: 08/20/18 20:59 Last Admin: 08/03/18 08:34 Dose: 1 tab Spironolactone (Aldactone) 12.5 mg PO BID17 [facility] Stop: 08/30/18 18:44 Last Admin: 08/03/18 08:33 Dose: 12.5 mg
--- NOTE | 2018-08-03 13:14 | Discharge Summary ---
Date of Service August 03, 2018 Admission HPI Per Admitting Provider 87-year-old female who was sent to the ED from [facility] for respiratory distress and altered mental status. History is currently unobtainable from the patient due to her altered mental status. Per daughter who is the bedside, she reports that she has noticed differences in her mother over the past few days. She notes increasing shortness of breath and confusion. This morning at [facility], patient was found to be hypoxic and difficult to arouse so she was sent to the ED for further evaluation. In the ED, patient was 74% on room air. She was subsequently placed on BiPAP. ABGs demonstrate a respiratory acidosis with pH 7.27, PCO2 82, PO2 108, HCO3 37. ProBNP 2690. Other labs are unremarkable. CXR shows mild pulmonary vascular congestion. She was given a nebulizer treatment and Solu-Medrol 125 mg IV. Admission Exam Per Admitting Provider Constitutional: WD/WN, vitals as above + ill appearing (Obtunded, minimally responsive to verbal and tactile stimuli) Eyes: PERRL, conjunctivae normal, anicteric sclerae ENMT: external ear and nose normal, oropharynx normal Respiratory: normal respiratory effort; no respiratory distress Auscultation: + diminished lung sounds On BiPAP Cardiovascular: Rate/Rhythm: regular rate; + abnormal rhythm (Irregularly irregular) Vessels: normal peripheral pulses Extremities: + edema (Trace edema BLE) Gastrointestinal (Abdomen): normal bowel sounds, soft, nontender, no hepatosplenomegaly Musculoskeletal: Extremities: + abnormal strength (Strength unable to be assessed due to mental status); no cyanosis and no clubbing Skin: no rashes, warm and dry Neurologic: + obtunded Psychiatric: Unable to be assessed secondary to current mental status Principal Diagnosis Discharge Information Discharge Diagnosis Acute on chronic respiratory failure Acute COPD Exacerbation Acute diastolic CHF exacerbation Metabolic Encephalopathy Discharge Goals Decrease discomfort,Improve disease control, Improve function Discharge Activity Limitations Resume your previous activity Discharge Data Allergies Allergy/AdvReac Type Severity Reaction Status Date / Time Penicillins Allergy Unknown RXN TO Verified 07/20/18 06:19 AMOXICILLIN adhesive AdvReac Mild RXN TO TAPE Verified 07/20/18 06:19 Consultations 07/29/18 13:24 Consult Cardiology Routine 07/30/18 09:30 Consult Palliative Care Routine 08/02/18 12:10 Consult Pulmonology Routine 07/20/18 07:24 ED Decision to Admit Stat 07/20/18 10:55 Consult Case Management - Discharge Planning Routine Consult Cupola Repairer Routine 07/24/18 20:11 Consult Case Management - Discharge Planning Routine Procedures Performed CXR: 1. Findings of mildly progressive congestive failure.. 2. Bilateral pleural effusions with left basilar atelectatic change. Repeat CXR: 1. Cardiomegaly and cardiac pacemaker. Pulmonary vascular congestion has almost completely resolved. 2. Right larger than left pleural effusions with bibasilar consolidation are similar to previous. Hospital Course (1) Acute on chronic respiratory failure with hypoxia and hypercapnia: Acute on chronic hypoxic and hypercapnic respiratory failure. Acute COPD Exacerbation Respiratory acidosis and Metabolic alkalosis Metabolic Encephalopathy CHF contributing to respiratory failure as well Continue supplemental oxygen and BiPAP as needed Needs BiPAP arranged upon discharge Titrate Oxygen to keep Sats > 88-90% CXR on 08/02/18 : Improved Vascular congestion Continue current management (2) COPD (chronic obstructive pulmonary disease): O2 dependent COPD with exacerbation. Received IV methylprednisolone Continue bronchodilators Need to address goals of care Appreciate Palliative Care Input Continue prednisone slow taper Appreciate Pulmonology Input Discussed with Legal Guardian and update patient's status Needs to use BiPAP QHS (3) Diastolic CHF: Acute on chronic left ventricular diastolic heart failure. Diltiazem discontinued as contributing to edema Also added Aldactone- dose increased to 12.5mg BID Monitor electrolytes, daily weight ECHO:RV pressure overload, EF:55-60%, Moderate to severe TR Pacemaker interrogated Appreciate Cardiology Input Metoprolol increased to to 50 mg a.m. 25 mg in p.m. Decreased IV lasix to 40mg daily>>Plan to transition to Po lasix upon discharge CXR on 08/02/18 :showed improved vascular congestion (4) Altered mental status: Confused at time of admission. Probable metabolic encephalopathy secondary to respiratory failure. Mental status improved to baseline Has been refusing BiPAP on and off (5) Atrial fibrillation: Chronic atrial fibrillation Rate controlled Continue metoprolol as above Diltiazem held as might be contributing to chronic edema Continue Apixaban. Appreciate Cardiology Input (6) Hypertension: Stable Continue metoprolol monitor (7) Cerebrovascular disease: Continue aspirin, statin. (8) Hypothyroidism: Continue levothyroxine. (9) Ambulatory dysfunction: Has not been ambulatory for some time. Ambulatory dysfunction probably multifactorial. PT and OT evaluations obtained (10) Dementia: Monitor for delirium. (11) Constipation: Continue bowel regimen (12) DVT prophylaxis: Non ambulatory. Continue apixaban. (13) Discharge planning issues: Anticipated return to [facility] when medically stable. BiPAP for chronic resp failure arranged at [facility] Case Management consulted. Patient currently has a court-appointed guardianship. Discharge disposition to be determined by legally designated parties. May need to readdress code status at [facility] Palliative care following Total Time Total Time Spent Total Time Spent (In Minutes): 40 minutes Total Time Includes: Examination of the Patient, Discharge Planning, Medication Reconciliation, Communication With Other Providers and Other Discharge Plan Discharge Items Patient Disposition: Transfer Custodial Fac Reason For Visit: RESP FAILURE Discharge Diagnosis: Acute on chronic respiratory failure Acute COPD Exacerbation Acute diastolic CHF exacerbation Metabolic Encephalopathy Discharge Goals: Decrease discomfort, Improve disease control and Improve function Activity: Resume your previous activity Non-emergency contact: Primary Care Provider Call non-emergency contact if: you have any medication questions, your symptoms worsen, your pain is not controlled, your pain is worsening, your pain is unusual for you and you have a fever Diet: Heart Healthy Diet Texture: Mechanical soft (ground) Addtl Provider Instructions: Follow up with your Primary Care Physician in 1 week Follow up with your Nursery School Attendant in 2 weeks Follow up with your pulmnologist in 2 weeks Get Blood test basic metabolic panel in 1 week and follow up with your Physician Complete the prednsione course as prescribed Seek immediate medical attention if your symptoms reoccur or worsen Prescriptions: New metoprolol succinate 50 mg Tablet Extended Release 24 Hr 50 mg PO QAM 30 Days Qty: 30 RF: 0 spironolactone 25 mg Tablet 12.5 mg PO BID17 30 Days Qty: 15 RF: 0 metoprolol succinate 25 mg Tablet Extended Release 24 Hr 25 mg PO QPM 30 Days Qty: 30 RF: 0 prednisone 10 mg Tablet 10 mg PO DAILY 5 Days Qty: 5 RF: 0 Continue furosemide [Lasix] 40 mg Tablet 40 mg PO DAILY RF: 0 ipratropium-albuterol 0.5 mg-3 mg(2.5 mg base)/3 mL Solution For Nebulization 3 ml INHALATION Q4 PRN (Reason: Shortness Of Breath Or Wheezing) RF: 0 aspirin 81 mg Tablet,Delayed Release (Dr/Ec) 81 mg PO DAILY RF: 0 cholecalciferol (vitamin D3) [Vitamin D3] 2,000 unit Tablet 4,000 unit PO DAILY RF: 0 levothyroxine 100 mcg Capsule 100 mcg PO DAILY RF: 0 apixaban [Eliquis] 5 mg Tablet 5 mg PO BID RF: 0 latanoprost 0.005 % Drops 1 drp OPB PM RF: 0 atorvastatin [Lipitor] 40 mg Tablet 40 mg PO DAILY RF: 0 levalbuterol HCl 0.63 mg/3 mL Solution For Nebulization 0.63 mg INHALATION Q4 PRN (Reason: Shortness Of Breath) RF: 0 sennosides-docusate sodium [Senna with Docusate Sodium] 8.6-50 mg Tablet 1 tab PO BID RF: 0 magnesium hydroxide [Milk of Magnesia] 400 mg/5 mL Suspension 2,400 mg PO UD PRN (Reason: Constipation) RF: 0 oxybutynin chloride 5 mg Tablet Extended Release 24hr 5 mg PO DAILY RF: 0 acetaminophen 325 mg Tablet 650 mg PO Q6H MDD 3gm/24hr PRN (Reason: Pain) RF: 0 bisacodyl [Dulcolax (bisacodyl)] 10 mg Suppository 10 mg [place] DAILY PRN (Reason: Constipation) RF: 0 clotrimazole-betamethasone [Lotrisone] 1-0.05 % Cream 1 applic TOPICAL BID RF: 0 sodium phosphates [Fleet Enema] 19-7 gram/118 mL Enema 118 ml [place] DAILY PRN (Reason: Constipation) RF: 0 Discontinued metoprolol succinate 50 mg Tablet Extended Release 24 Hr 50 mg PO DAILY RF: 0 diltiazem HCl 120 mg Capsule,Extended Release 24 Hr 120 mg PO DAILY RF: 0 potassium chloride 10 mEq Tablet Extended Release 20 meq PO DAILY RF: 0 Stand-Alone Forms: [facility] Discharge Orders: Discharge Order (Routine); Ordered 08/03/18 Ordered By: Nathan Collier Skilled Items Patient informed of condition?: Yes DNR: No Discharge Level of Care: Skilled Communicable Disease: No Discharge Prognosis: Stable Admission Data Admit Date/Time: 07/20/18 08:58 Attending Provider: Nathan Collier Admit Provider: Nathan Collier Primary Care Provider: [place]ud[place]eth Other Providers: Nathan Collier ; Max Yeboah ; Stevan Gilliam ; Fermin Arnold ; Priti Norman Service: Telemetry Other Pending Studies at Discharge: No
== END 2018-08-03 17:31 | DRG 291 ==
LOC: ED 05:34 → SUATTDRO 08:58 → 1E 08:58 → 2W 07-21 11:41

== ENCOUNTER 2019-01-31 13:12 | Inpatient (IN) ==
--- OUTSIDE RECORDS SUMMARY | 2019-01-31 13:15 | External Medical Summary | Continuity of Care Document ---
:1930 Author Name Bernardino Loya Address Unavailable Unavailable , Care Team Providers Name Role Phone Reji Shen III, M.D. Unavailable [email or web address] Darion FUNG Unavailable [email or web address] Ayush ESQUIVEL Unavailable [email or web address] Dana Loya Unavailable [email or web address] Acacia Menard M.D. Unavailable [email or web address] KURT Loya, Goyo Unavailable Unavailable Silas Hoang M.D. 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) Constipation (564.00) (K59.00) Vitamin D deficiency (268.9) (E55.9) Hyperlipidemia (272.4) (E78.5) Overactive bladder (596.51) (N32.81) Persistent adjustment disorder with mixe d anxiety and depressed mood (309.28) (F43.23) Cerebral infarction (434.91) (I63.9) Pain (780.96) (R52) Elevated temperature (780.60) (R50.9) Pain in gums (523.9) (K06.8) Asthma (493.90) (J45.909) Arthritis of knee, left (716.96) (M17.12) Sinus bradycardia (427.89) (R00.1) Syncope (780.2) (R55) Hypercholesterolemia (272.0) (E78.00) Allergic rhinitis (477.9) (J30.9) Impaired fasting glucose (790.21) (R73.01) Osteoporosis (733.00) (M81.0) Glaucoma (365.9) (H40.9) Cardiac pacemaker (V45.01) (Z95.0) 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) Muscle weakness (generalized) (728.87) (M62.81) 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 ) COPD (chronic obstructive pulmonary disease) (496) (J44.9) Coronary artery disease (414.00) (I25.10) Hypothyroidism (244.9) (E03.9) Vascular dementia (290.40) (F01.50) Gait difficulty (781.2) (R26.9) Chronic diastolic congestive heart failure (428.32) (I50.32) Hypertension (401.9) (I10) Atrial fibrillation (427.31) (I48.91) Acute exacerbation of CHF (congestive heart failure) (428.0) (I50.9) Left bundle-branch block (426.3) (I44.7) Chronic respiratory failure (518.83) (J96.10) Allergies and Adverse Reactions Augmentin TABS (Allergy) Reaction: Dizzi ness Lipitor TABS (Allergy) Penicillins (Allergy) Reaction: Rash Zocor TABS (Allergy) Reaction: Other Medications Eliquis 5 MG Oral Tablet; TAKE 1 TABLET BY MOUTH TWICE DAILY Quantity: 180 Refills: 3 Vitamin D3 2000 UNIT Oral Tablet; TAKE 2 TABLET Daily Refills: 0 Lasix 40 MG Oral Tablet; Take 1 tablet twice daily Refills: 0 Atorvastatin Calcium 40 MG Oral Tablet; TAKE 1 TABLET BY MOUTH AT BEDTIME Shalini Cortez Start: 24-Apr-2012 Quantity: 30 Refills: 5 Levalbuterol HCl - 0.63 MG/3ML Inhalatio n Nebulization Solution; Use 1 unit dose mixed with ipratropium BID and then Q4-hours PRN dyspnea, cough or wheeze ALVIN Peacock Start: 21-Sep-2018 Quantity: 5 Refills: 3 Ipratropium [place] 0.02 % Inhalation So lution; 1 unit dose in nebulizer mixed with levalbuterol twice dialy ALVIN Peacock Start: 21-Sep-2018 Quantity: 1 25 x 2.5 ML Plas Con t Refills: 1 Latanoprost 0.005 % Ophthalmic Solution; INSTILL 1 DROP IN BOTH EYES AT BEDTIME. 2.5 ML Bottle Refills: 0 Senna-Lax 8.6 MG Oral Tablet; Take 1 tablet twice daily Refills: 0 Ditropan XL 5 MG Oral Tablet Extended Release 24 Hour; Take 1 tablet daily Refills: 0 Spironolactone 25 MG Oral Tablet; 1/2 tablet twice daily Refills: 0 Tylenol 325 MG Oral Tablet; TAKE 2 TABLET Every 6 hours PRN Refills: 0 Levothyroxine Sodium 100 MCG Oral Tablet; TAKE ONE TAB LET EVERY DAY KENTON Orlando Start: 09-Oct-2010 Quantity: 30 Refills: 5 Albuterol Sulfate (2.5 MG/3ML) 0.083% In halation Nebulization Solution; USE 3ML EVERY 12 HOURS Refills: 0 Synvisc INJ Refills: 0 Milk of Magnesia 400 MG/5ML Oral Suspension; USE DIRECTED . Refills: 0 Bacitracin 500 UNIT/GM External Ointment ; APPLY SPARINGLY TO AFFECTED AREA(S) ONCE DAILY Refills: 0 Metoprolol Tartrate 50 MG Oral Tablet; TAKE 1 TABLET TWICE D AILY. Quantity: 180 Refills: 3 Oxygen; titrate to keep O2 between 88-90% every 8 hrs prn Refills: 0 Ipratropium-Albuterol 0.5-2.5 (3) MG/3ML Inhalation Solution; USE 1 UNIT DOSE IN NEBULIZER EVERY 4 HOURS NEEDED. 30 x 3 ML Plas Cont Quantity: 3 Refills: 2 Aspirin 81 MG TABS; TAKE 1 TABLET DAILY. Shalini Shen III Start: 09-Jul-2013 Refills: 0 Orajel 10 % GEL; give 1 application po every 4 hrs prn for p ain in upper gums Refills: 0 Fleet Enema 7-19 GM/118ML Rectal Enema; insert 1 unit rectally PRN constipation if Dulcolax not effective 133 ML Bottle Refills: 0 Dulcolax 10 MG Rectal Suppository; injec t 1 suppository SQ PRN for constipation give one suppository per protocol on day 4 of no BM Refills: 0 Procedures History of Pacemaker Permanent Placement Status: Completed History of Thyroid Surgery Total Thyroidectomy Status: Completed History of Total Hip Replacement Status: Completed History of Total Knee Arthroplasty Statu s: Completed History of Hernia Repair Status: Complet ed History of Bladder Surgery Status: Compl eted Immunizations Tdap Not Administered Pneumococcal polysaccharide vaccine, 23 valent Not Administe red Zostavax 44986 UNT/0.65ML Subcutaneous Solution Reconstitute d Not Administered Pneumococcal polysaccharide vaccine, 23 valent On: 2 10:30 Lot #: [id number], [employer] Family History Mother Family history of Acute Myocardial Infarction (V17.3) Status : Active Family history of Congestive Heart Failure Status: Active Father Family history of Diabetes Mellitus (V18.0) Status: Active Family history of drug abuse (V61.42) (Z81.3) Status: Active Social History - Smoking Status Never smoker Never smoker Plan of Treatment Planned Encounters Appointment; Michael Menard M.D. Start: 10-May-2019 11:4 5 Request Planned Observations Planned Goals not documented Results No Known Results Results not documented Encounters Appointment; Michael Menard M.D. 04-Nov-2018 15:30 Encounter Diagnosis: Problem not documented Appointment; Rivka Hernandez M.D. 23-Oct-2018 14:30 Encounter Diagnosis: Problem not documented Appointment; Elsiabet Luke PA-C 21-Oct-2018 9:30 Encounter Diagnosis: Problem not documented Appointment; Elisabet Luke PA-C 07-Oct-2018 10:30 Encounter Diagnosis: Problem not documented Appointment; Melissa Peaocck PA-C 21-Sep-2018 10:15 Encounter Diagnosis: Problem not documented Appointment; [facility], Nurse 04-Sep-2018 9:20 Encounter Diagnosis: Problem not documented Appointment; Rivka Hernandez M.D. 04-Sep-2018 9:00 Encounter Diagnosis: Problem not documented Appointment; [place] [id number] 04-Sep-2018 8:45 Encounter Diagnosis: Problem not documented Appointment; Michael Menard M.D. 31-Aug-2018 13:45 Encounter Diagnosis: Problem not documented Appointment; Ricci Faustin M.D. 16-Feb-2018 15:30 Encounter Diagnosis: Problem not documented Appointment; Michael Menard M.D. 12-Jan-2018 10:15 Encounter Diagnosis: Problem not documented Appointment; Michael Menard M.D. 10-May-2019 11:45 Encounter Diagnosis: Problem not documented
--- NOTE | 2019-01-31 13:27 | CT Scan Report ---
CT head/brain wo con CLINICAL HISTORY: 88 years-old Female with Stroke evaluation . Acute strokelike symptoms TECHNIQUE: Multiple axial CT images of the head were obtained without contrast. A dose lowering tech nique was utilized adhering to the principles of ALARA. CT DOSE: 1848.54 mGy.cm COMPARISON: Head CT 03/12/2018. FINDINGS: Motion degraded exam. No acute intracranial hemorrhage, midline shift, intracranial mass, hydrocephal us, or abnormal extra-axial collection. There is blurring of the delgado-white interface about the right lentiform nucleus and right MCA distribution, notably involving the right temporal and parietal lobe s. Age-related involutional changes with ex vacuo ventriculomegaly. Extensive patchy white matter hyp odensities are suggestive of chronic microvascular ischemic disease. Remote lacunar infarction of the left caudate nucleus. Cerebral vascular calcifications are noted. The calvarium is intact. Moderate to severe opacification of the left maxillary sinus. Moderate muco titi thickening of the ethmoid air cells. Mastoid air cells and middle ear cavities are clear. Soft ti ssues and orbits are unremarkable. IMPRESSION: 1. Motion degraded exam without acute intracranial hemorrhage or midline shift. 2. Ill-defined decreased attenuation about the right MCA distribution with blurring of the delgado-white interface is suggestive of acute territorial infarct. 3. Age-related involutional changes with advanced chronic microvascular ischemic disease. Findings were discussed with Dr. Mendez on 01/31/2019 at 1:20 PM The above report was generated using voice recognition software. It may contain grammatical, syntax o r spelling errors. Electronically signed by: Evert Tellez M.D. 01/31/2019 1:26 PM
[2019-01-31 13:32] LABS: Basophils # (auto) 0.03 K/uL (0-0.2); Basophils % (auto) 0.5 %; Eosinophils # (auto) 0.17 K/uL (0-0.5); Eosinophils % (auto) 2.6 %; Hematocrit (blood only) 43.9 % (37-47); Hemoglobin 14.5 g/dL (12.0-16.0); Immature Granulocytes # (auto) 0.02 K/uL (0.00-0.02); Immature Granulocytes % (auto) 0.3 %; Lymphocytes # (auto) 1.95 K/uL (1.2-3.4); Lymphocytes % (auto) 29.6 %; Mean Corpuscular Volume 91.8 fL (80-100); Mean Platelet Volume 9.2 fL (7.4-10.4); Monocytes # (auto) 0.69 K/uL (0.11-0.59); Monocytes % (auto) 10.5 %; Neutrophils # (auto) 3.72 K/uL (1.4-6.5); Neutrophils % (auto) 56.5 %; Platelet Count 250 K/uL (130-400); RDW Coefficient of Variation 16.3 % (11.5-14.5); Red Blood Count 4.78 M/uL (4.2-5.4); White Blood Count 6.58 K/uL (4.8-10.8)
[2019-01-31 13:45] LABS: Partial Thromboplastin Ratio 0.9; Partial Thromboplastin Time 25.7 Seconds (21.0-31.0); Prothrombin Time 10.1 Seconds (9.0-12.0)
[2019-01-31 13:58] LABS: Alanine Aminotransferase 18 U/L (12-78); Albumin Globulin Ratio 0.7 (0.9-2); Albumin Level 3.2 gm/dl (3.4-5.0); Alkaline Phosphatase 116 U/L (45-117); Aspartate Aminotransferase 23 U/L (15-37); BUN Creatinine Ratio 13.5 (10-20); Bilirubin,Total 0.5 mg/dl (0.2-1); Blood Urea Nitrogen 15 mg/dl (7-18); Calcium 9.1 mg/dl (8.5-10.1); Carbon Dioxide 29 mmol/L (21-32); Chloride 104 mmol/L (98-107); Est GFR (African American) 49.9; Globulin 4.6 gm/dl (2.5-4.0); Glucose 89 mg/dl (70-99); Potassium 4.7 mmol/L (3.5-5.1); Sodium 139 mmol/L (136-145); Total Protein 7.8 gm/dl (6.4-8.2); Troponin I < 0.015 ng/ml (0-0.045)
[2019-01-31] MEDS ORDERED: ACETAMINOPHEN 1,000 MG/100 ML VIAL IV STA (14:07)
--- NOTE | 2019-01-31 14:11 | Emergency Department Note ---
Entered by Elayne Beaulieu acting as a scribe for History of Present Illness General Chief complaint: Stroke Alert Stated complaint: stroke alert Source: family () and EMS Mode of arrival: EMS Limitations: altered mental status History of Present Illness Provider complaint: Stroke Onset (ago): hour(s) (today around 1230) Location: head Radiation: non-radiation Pain Consistency: + other (episode) Quality: + other (stroke) Associated symptoms: + other (Additional symptoms: left-sided facial droop, flaccid left arm, right-sided gaze) The patient is an 88 year old female with a history of hypertension, cerebrovascular disease, hypothyroidism, dementia, urinary incontinence, COPD, CAD, CHF, atrial fibrillation, symptomatic bradycardia, and a pacemaker who presents to the Emergency Room with complaints of an episode of a stroke occurring today. Per , the patient worsened acutely around 1230. He reports that he noticed that the patient had a right-sided facial droop and that her left arm was flaccid. EMS adds that the patient has a right-sided gaze and turns her head to the right. EMS states that the patient is normally able to walk and move her extremities. They note that the patient wears 2L O2 at her home at [facility]. EMS adds that the patient is on Eliquis. The patient's primary guardian is the state. HPI limited secondary to altered mental status. Home Medications Home Medications Medication Instructions Recorded Confirmed Type Eliquis 5 mg PO BID 07/20/18 01/31/19 History Fleet Enema 118 ml ID DAILY PRN 07/20/18 01/31/19 History acetaminophen 650 mg PO Q6H PRN MDD 3gm/24hr 07/20/18 01/31/19 History aspirin 81 mg PO QAM 07/20/18 01/31/19 History atorvastatin [Lipitor] 40 mg PO HS 07/20/18 01/31/19 History bisacodyl [Dulcolax (bisacodyl)] 10 mg ID DAILY PRN 07/20/18 01/31/19 History cholecalciferol (vitamin D3) 4,000 unit PO QAM 07/20/18 01/31/19 History [Vitamin D3] furosemide [Lasix] 40 mg PO DAILY 07/20/18 01/31/19 History latanoprost 1 drp OPB HS 07/20/18 01/31/19 History levothyroxine 100 mcg PO QAM 07/20/18 01/31/19 History magnesium hydroxide [Milk of 2,400 mg PO UD PRN 07/20/18 01/31/19 History Magnesia] oxybutynin chloride 5 mg PO QAM 07/20/18 01/31/19 History sennosides-docusate sodium [Senna 1 tab PO BID 07/20/18 01/31/19 History with Docusate Sodium] albuterol sulfate 2.5 mg INHALATION Q12 01/31/19 01/31/19 History furosemide [Lasix] 40 mg PO BID 01/31/19 01/31/19 History ipratropium bromide 3 ml INHALATION Q12 01/31/19 01/31/19 History metoprolol succinate 50 mg PO BID 01/31/19 01/31/19 History spironolactone 12.5 mg PO BID 01/31/19 01/31/19 History Allergies Allergy/AdvReac Type Severity Reaction Status Date / Time Penicillins Allergy Unknown RXN TO Verified 01/31/19 13:58 AMOXICILLIN adhesive AdvReac Mild RXN TO TAPE Verified 01/31/19 13:58 Past Med/Surg History Medical History Hypertension (Chronic) Cerebrovascular disease (Chronic) "ischemic stroke left basal ganglia 2009" Hypothyroidism (Chronic) Dementia (Chronic) "mild" Urinary incontinence (Chronic) COPD (chronic obstructive pulmonary disease) (Chronic) Carotid artery disease (Chronic) "carotid duplex [facility] 11/29/16: bilat plaque, moderate ECA stenosis bilat, no significant ICA stenosis" Symptomatic bradycardia (Chronic) "S/P pacemaker" Diastolic CHF (Chronic) Atrial fibrillation (Chronic) Surgical History S/P placement of cardiac pacemaker (Chronic) Family History Other Family history unobtainable due to patient's condition Social History Preferred Language: Bur[place]ian Communication Ability: Impaired Brand Recorder Required: No Beliefs That Will Affect Care: None marital status: Current Living Situation: [facility] Current Living Situation Comment: [facility] Other Information That Helps Us Care for You: No Feels Safe at Home: Yes Safety Concerns: Feels Safe At This Time Smoking Status: Never smoker Do You Dip or Chew Tobacco: No Second Hand Exposure: No Tobacco Cessation Education Requested by Patient: No Hx Alcohol Use: No Hx Substance Use: No Review of Systems Other (Limited secondary to altered mental status) Physical Exam Vital Signs Vital Signs - 24 hr 01/31/19 13:29 01/31/19 13:40 01/31/19 13:42 Temperature Source Oral Sepsis Recent Fever Within 48 Hours No Sepsis New/Unexplained Change in Mental Status No Sepsis Action Taken by Nursing No Action Required Pulse Rate 118 H Pulse Rate [Apical] 120 H Pulse Rhythm [Apical] Pulse Strength [Apical] Respiratory Rate 24 25 H Respiratory Effort / Characteristics Spontaneous Respiratory Depth Deep Respiratory Pattern Regular Blood Pressure 164/125 H Blood Pressure [Right Arm] 138/73 Blood Pressure Mean 138 Blood Pressure Mean [Right Arm] 94 Blood Pressure Position [Right Arm] Pulse Oximetry 93 93 Oxygen Delivery Method Nasal Cannula Nasal Cannula Nasal Cannula Oxygen Flow Rate 2 2 01/31/19 14:00 01/31/19 14:37 01/31/19 14:43 Temperature Source Sepsis Recent Fever Within 48 Hours Sepsis New/Unexplained Change in Mental Status Sepsis Action Taken by Nursing Pulse Rate Pulse Rate [Apical] 117 H 88 Pulse Rhythm [Apical] Pulse Strength [Apical] Respiratory Rate 26 H 24 Respiratory Effort / Characteristics Spontaneous Respiratory Depth Shallow Respiratory Pattern Tachypnea Blood Pressure Blood Pressure [Right Arm] 107/71 Blood Pressure Mean Blood Pressure Mean [Right Arm] 83 Blood Pressure Position [Right Arm] Pulse Oximetry 99 95 Oxygen Delivery Method Nasal Cannula Nasal Cannula Nasal Cannula Oxygen Flow Rate 2 2 01/31/19 15:00 Temperature Source Sepsis Recent Fever Within 48 Hours Sepsis New/Unexplained Change in Mental Status Sepsis Action Taken by Nursing Pulse Rate Pulse Rate [Apical] 87 Pulse Rhythm [Apical] Regular Pulse Strength [Apical] Normal Respiratory Rate 24 Respiratory Effort / Characteristics Non-Labored Respiratory Depth Normal Respiratory Pattern Regular Blood Pressure Blood Pressure [Right Arm] 135/74 Blood Pressure Mean Blood Pressure Mean [Right Arm] 94 Blood Pressure Position [Right Arm] Lying Pulse Oximetry 93 Oxygen Delivery Method Nasal Cannula Oxygen Flow Rate 2 GENERAL: Awake, alert to verbal stimuli, in no distress HENT: Normocephalic, atraumatic. EYES: Normal conjunctiva. Sclera non-icteric. PERRL. R gaze preference NECK: Supple. No nuchal rigidity. RESPIRATORY: Clear to auscultation. Normal respiratory effort. CARDIAC: Tachycardic rate. Irregularly irregular rhythm. Extremities warm and well perfused. GI: Soft, non-distended. No tenderness to palpation. No rebound or guarding. No masses. RECTAL: Deferred. MUSCULOSKELETAL: Atraumatic. Chest examination reveals no tenderness. LOWER EXTREMITIES: Calves are equal size bilaterally and non-tender. Trace pedal edema. NEURO: Right gaze preference, slurred speech, right-sided facial droop, paralysis of the left upper and lower extremities. Right lower extremity drift. NIH ~19. SKIN: Warm and dry. No rash or jaundice noted. Course 1306: The patient was immediately taken to CT upon arrival. The patient was then evaluated in room A1, and a complete history and physical examination were performed. 1350: I reviewed the patient's case with Nadeen Abbott. Dr. Jackson stated that there is no indication for transfer and acute intervention. 1417: I reviewed the patient's case with Alley Mosher. The patient will be evaluated for further management. 1438: I reviewed the patient's case with Dr. Douglas - ICU. Dr. Douglas will come to evaluate the patient in the ED. 1517: I spoke to the patient's daughter on the phone and updated her on the patient's condition. Consultations Consultation #1: I reviewed the patient's case with Nadeen Abbott. Dr. Jackson stated that there is no indication for transfer and acute intervention. Time: 13:50 Consultation #2: I reviewed the patient's case with Alley Mosher. The patient will be evaluated for further management. Time: 14:17 Consultation #3: I reviewed the patient's case with Dr. Douglas - ICU. Dr. Douglas will come to evaluate the patient in the ED. Time: 14:38 Administered Medications Discontinued Medications Acetaminophen (Ofirmev) 1,000 mg in 100 mls @ 400 mls/hr IV NOW STA Stop: 01/31/19 14:21 Last Infusion: 01/31/19 14:48 Dose: 0 mls/hr Documented by: [id number] Admin: 01/31/19 14:32 Dose: 400 mls/hr Documented by: [id number] Metoprolol Tartrate (Lopressor) 2.5 mg IV NOW STA Stop: 01/31/19 14:15 Last Admin: 01/31/19 14:31 Dose: 5 mg Documented by: [id number] Medical Decision Making Differential Diagnosis Differential diagnosis: Etiologies such as metabolic, infection, hypoglycemia, electrolyte abnormalities, cardiac sources, intracerebral event, toxicologic, neurologic, as well as others were entertained. Medical Records Attestation: I reviewed the patient's medical records. Home Medications Current Medication List: was personally reviewed by wv Laboratory Data Attestation: I reviewed the patient's lab results. Result diagrams: 01/31/19 13:24 01/31/19 13:24 Lab Results 01/31/19 01/31/19 01/31/19 Range/Units 13:21 13:24 13:24 WBC 6.58 (4.8-10.8) K/uL RBC 4.78 (4.2-5.4) M/uL Hgb 14.5 (12.0-16.0) g/dL Hct 43.9 (37-47) % MCV 91.8 (80-100) fL MCH 30.3 (25-34) pg MCHC 33.0 (32-36) g/dL RDW Std Deviation 55.0 H (36.4-46.3) fL RDW Coeff of Jorge 16.3 H (11.5-14.5) % Plt Count 250 (130-400) K/uL MPV 9.2 (7.4-10.4) fL Immature Gran % (Auto) 0.3 % Neut % (Auto) 56.5 % Lymph % (Auto) 29.6 % Glades % (Auto) 10.5 % Eos % (Auto) 2.6 % Baso % (Auto) 0.5 % Immature Gran # (Auto) 0.02 (0.00-0.02) K/uL Neut # (Auto) 3.72 (1.4-6.5) K/uL Lymph # (Auto) 1.95 (1.2-3.4) K/uL Glades # (Auto) 0.69 H (0.11-0.59) K/uL Eos # (Auto) 0.17 (0-0.5) K/uL Baso # (Auto) 0.03 (0-0.2) K/uL PT 10.1 (9.0-12.0) Seconds INR 1.0 (0.9-1.1) APTT 25.7 (21.0-31.0) Seconds PTT Ratio 0.9 Sodium (136-145) mmol/L Potassium (3.5-5.1) mmol/L Chloride (98-107) mmol/L Carbon Dioxide (21-32) mmol/L Anion Gap (3-11) BUN (7-18) mg/dl Creatinine (0.6-1.2) mg/dl Est Cr Clr Drug Dosing Est GFR ( Amer) Est GFR (Non-Af Amer) BUN/Creatinine Ratio (10-20) Glucose (70-99) mg/dl POC Glucose (70-99) Calcium (8.5-10.1) mg/dl Magnesium (1.8-2.4) mg/dl Total Bilirubin (0.2-1) mg/dl AST (15-37) U/L ALT (12-78) U/L Alkaline Phosphatase (45-117) U/L Troponin I (0-0.045) ng/ml Total Protein (6.4-8.2) gm/dl Albumin (3.4-5.0) gm/dl Globulin (2.5-4.0) gm/dl Albumin/Globulin Ratio (0.9-2) Specimen Hemolysis Blood Type O Positive Antibody Screen NEGATIVE 01/31/19 01/31/19 Range/Units 13:24 13:24 WBC (4.8-10.8) K/uL RBC (4.2-5.4) M/uL Hgb (12.0-16.0) g/dL Hct (37-47) % MCV (80-100) fL MCH (25-34) pg MCHC (32-36) g/dL RDW Std Deviation (36.4-46.3) fL RDW Coeff of Jorge (11.5-14.5) % Plt Count (130-400) K/uL MPV (7.4-10.4) fL Immature Gran % (Auto) % Neut % (Auto) % Lymph % (Auto) % Glades % (Auto) % Eos % (Auto) % Baso % (Auto) % Immature Gran # (Auto) (0.00-0.02) K/uL Neut # (Auto) (1.4-6.5) K/uL Lymph # (Auto) (1.2-3.4) K/uL Glades # (Auto) (0.11-0.59) K/uL Eos # (Auto) (0-0.5) K/uL Baso # (Auto) (0-0.2) K/uL PT (9.0-12.0) Seconds INR (0.9-1.1) APTT (21.0-31.0) Seconds PTT Ratio Sodium 139 (136-145) mmol/L Potassium 4.7 (3.5-5.1) mmol/L Chloride 104 (98-107) mmol/L Carbon Dioxide 29 (21-32) mmol/L Anion Gap 6.0 (3-11) BUN 15 (7-18) mg/dl Creatinine 1.15 (0.6-1.2) mg/dl Est Cr Clr Drug Dosing Not Reportable Est GFR ( Amer) 49.9 Est GFR (Non-Af Amer) 43.0 BUN/Creatinine Ratio 13.5 (10-20) Glucose 89 (70-99) mg/dl POC Glucose 85 (70-99) Calcium 9.1 (8.5-10.1) mg/dl Magnesium 2.0 (1.8-2.4) mg/dl Total Bilirubin 0.5 (0.2-1) mg/dl AST 23 (15-37) U/L ALT 18 (12-78) U/L Alkaline Phosphatase 116 (45-117) U/L Troponin I < 0.015 (0-0.045) ng/ml Total Protein 7.8 (6.4-8.2) gm/dl Albumin 3.2 L (3.4-5.0) gm/dl Globulin 4.6 H (2.5-4.0) gm/dl Albumin/Globulin Ratio 0.7 L (0.9-2) Specimen Hemolysis Blood Type Antibody Screen Imaging Data Radiologist's Impression: Radiology results as stated below per my review and the radiologist's interpretation: CT head/brain wo con CLINICAL HISTORY: 88 years-old Female with Stroke evaluation . Acute strokelike symptoms TECHNIQUE: Multiple axial CT images of the head were obtained without contrast. A dose lowering technique was utilized adhering to the principles of ALARA. CT DOSE: 1848.54 mGy.cm COMPARISON: Head CT 03/12/2018. FINDINGS: Motion degraded exam. No acute intracranial hemorrhage, midline shift, intracranial mass, hydrocephalus, or abnormal extra-axial collection. There is blurring of the delgado-white interface about the right lentiform nucleus and right MCA distribution, notably involving the right temporal and parietal lobes. Age- related involutional changes with ex vacuo ventriculomegaly. Extensive patchy white matter hypodensities are suggestive of chronic microvascular ischemic disease. Remote lacunar infarction of the left caudate nucleus. Cerebral vascular calcifications are noted. The calvarium is intact. Moderate to severe opacification of the left maxillary sinus. Moderate mucosal thickening of the ethmoid air cells. Mastoid air cells and middle ear cavities are clear. Soft tissues and orbits are unremarkable. IMPRESSION: 1. Motion degraded exam without acute intracranial hemorrhage or midline shift. 2. Ill-defined decreased attenuation about the right MCA distribution with blurring of the delgado-white interface is suggestive of acute territorial infarct. 3. Age-related involutional changes with advanced chronic microvascular ischemic disease. Findings were discussed with Dr. Mendez on 01/31/2019 at 1:20 PM The above report was generated using voice recognition software. It may contain grammatical, syntax or spelling errors. Electronically signed by: Evert Tellez M.D. 01/31/2019 1:26 PM ECG Data Attestation: I personally reviewed and interpreted this ECG as follows: Indication: other (stroke) Rate (beats per minute): 116 Rhythm: atrial fibrillation (with RVR) Findings: + left axis deviation; no ST elevation Blood Pressure Blood Pressure Findings: Normal blood pressure MDM Narrative Patient is an 88-year-old female with a history of atrial fibrillation on Eliquis, COPD, hypothyroidism and history of stroke presenting today when her noted significant onset of neurological symptoms between 12 and 1230 at lunch today at her skilled facility. Patient sent here for further evaluation. Dense left-sided hemiplegia with right-sided gaze deviation and right facial d vignesh. CT head without a signs of acute bleed however some early signs concerning for right MCA territory stroke and fits with the clinical picture. Anticoagulation status contra-indicates TPA administration. Discussed with tele-stroke at [place] unfortunately given her age and comorbidities not an interventional candidate and they do not recommend transfer. POLST form signed by state guardian states she is comfort measures. Labs otherwise not remarkable, Given a small amount of metoprolol for Afib RVR while here. Given the patient's sudden onset neurological symptoms and likely large right MCA stroke feel that monitoring here until state guardian to be contacted is warranted. Unable to get on phone at this time. Patient's was here and updated on her status and he is in agreement with this plan. He does not wish her to return to [facility] at this time. Discussed with the [facility] Hospitalist for admission. Patient's pulsed states that she is comfort measures but would trial a period of IV hydration and nutrition; would benefit from CUSTOMER SERVICE DISPATCHER eval. Impression & Plan CVA (cerebral vascular accident), Atrial fibrillation with RVR The scribe's documentation has been prepared under my direction and personally reviewed by me in its entirety. I confirm that the note above accurately reflects all work, treatment, procedures, and medical decision making performed by me.
[2019-01-31] MEDS ORDERED: METOPROLOL TARTRATE 1 MG/ML VIAL IV STA (14:14)
[2019-01-31 15:31] LABS: Appearance Urine Cloudy (Clear); Bilirubin Urine Negative (Negative); Color Urine Yellow; Glucose Urine UA Negative (Negative); Ketones Urine Trace (Negative); Leukocyte Esterase Urine Negative (Negative); Nitrite Urine Negative (Negative); Protein Urine 3+ (Negative); Specific Gravity Urine >= 1.030 (1.000-1.030); Urobilinogen Urine Negative (Negative)
[2019-01-31 15:41] LABS: Bacteria Urine Negative (Negative)
[2019-01-31 15:42] LABS: Hyaline Casts Urine 0-5 /lpf (0-5)
[2019-01-31 15:43] LABS: Amorphous Sediment Urine Present (None Prsent)
--- NOTE | 2019-01-31 16:33 | History & Physical Report ---
Date of Service January 31, 2019 Assessment & Plan (1) Acute ischemic cerebrovascular accident (CVA) involving right middle cer ebral artery territory: -Admit to telemetry -Patient sent to the ED from [facility] for evaluation of strokelike symptoms - slurred speech, left facial droop, left-sided weakness -In the ED, CT head showing acute right MCA infarct -Stroke alert was called however patient was not felt to be an TPA candidate secondary to advanced age and currently being prescribed Eliquis for atrial fibrillation -On exam, patient has a left-sided neglect with left facial droop, slurred speech, left hemiparesis -Patient is prescribed Eliquis for stroke prevention in atrial fibrillation however per review of MAR, patient has refused this medication several times -CVA likely secondary to medication noncompliance -Unable to obtain MRI secondary to pacemaker -Repeat head CT in the morning -Start rectal aspirin daily -Case was discussed with Dr. Telles by Dr. Collier -she does not recommend further anticoagulation at this time secondary to risk of hemorrhagic conversion -Prognosis is poor -Case was discussed with Viktoriya Chavez with [facility] (patient's court appointed guardian) who states the patient to remain a DNR/DNI with no aggressive/invasive measures. Patient status will be reevaluated tomorrow with possible transition to comfort measures. -Palliative care consult (2) Atrial fibrillation: -Currently in atrial fibrillation -Heart rate mildly elevated in ED, received metoprolol 2.5 mg IV -Typically rate controlled on metoprolol however unable to take p.o. at this time -Monitor heart rate, provide IV metoprolol if needed -Anticoagulation as above (3) Diastolic CHF: -Appears euvolemic -Holding diuretics secondary to n.p.o. status -Monitor volume status closely, provide IV diuresis if needed (4) Hypertension: -Allow for permissive hypertension secondary to acute CVA (5) COPD (chronic obstructive pulmonary disease): -No signs of acute exacerbation -Continue home nebulizers (6) Hypothyroidism: -Resume levothyroxine when taking p.o. (7) DVT prophylaxis: -SCDs for now until repeat CT scan tomorrow to evaluate for hemorrhagic conversion (8) Discharge planning issues: -Patient's court appointed guardian, Viktoriya Chavez with [facility], was updated -Emergency phone number: [phone] (not to be shared with patient's family) -Viktoriya states that patient is to remain a DNR/DNI and to be updated frequently with any condition changes. Patient will be reevaluated tomorrow with consideration of transition to comfort measures. History of Present Illness Chief Complaint: Strokelike symptoms Primary Care Provider: [facility] 88-year-old female who was brought to the ED from [facility] for evaluation of strokelike symptoms. History is currently unobtainable from the patient. at the bedside who provides some information. He reports that they had eat lunch together and then about 1 hour later her speech was slurred, had a left-sided facial droop, and would not move left side. EMS was then called and patient was brought to the ED for further evaluation. I also discussed the case with staff at [facility]. They report that patient has been generally well recently. She does often refuse her medications and oxygen. Patient is on Eliquis for history of atrial fibrillation, per MAR patient has been refusing this medication several times. In the ED, a stroke alert was called and patient was evaluated. Patient was felt to not be a TPA candidate secondary to advanced age and being prescribed Eliquis. CT head shows an acute right MCA infarct. Patient was given IV Tylenol and metoprolol tartrate 2.5 mg IV. Allergies Allergy/AdvReac Type Severity Reaction Status Date / Time Penicillins Allergy Unknown RXN TO Verified 01/31/19 13:58 AMOXICILLIN adhesive AdvReac Mild RXN TO TAPE Verified 01/31/19 13:58 Home Medications Home Medications Medication Instructions Recorded Confirmed Type Eliquis 5 mg PO BID 07/20/18 01/31/19 History Fleet Enema 118 ml NJ DAILY PRN 07/20/18 01/31/19 History acetaminophen 650 mg PO Q6H PRN MDD 3gm/24hr 07/20/18 01/31/19 History aspirin 81 mg PO QAM 07/20/18 01/31/19 History atorvastatin [Lipitor] 40 mg PO HS 07/20/18 01/31/19 History bisacodyl [Dulcolax (bisacodyl)] 10 mg NJ DAILY PRN 07/20/18 01/31/19 History cholecalciferol (vitamin D3) 4,000 unit PO QAM 07/20/18 01/31/19 History [Vitamin D3] furosemide [Lasix] 40 mg PO DAILY 07/20/18 01/31/19 History latanoprost 1 drp OPB HS 07/20/18 01/31/19 History levothyroxine 100 mcg PO QAM 07/20/18 01/31/19 History magnesium hydroxide [Milk of 2,400 mg PO UD PRN 07/20/18 01/31/19 History Magnesia] oxybutynin chloride 5 mg PO QAM 07/20/18 01/31/19 History sennosides-docusate sodium [Senna 1 tab PO BID 07/20/18 01/31/19 History with Docusate Sodium] albuterol sulfate 2.5 mg INHALATION Q12 01/31/19 01/31/19 History furosemide [Lasix] 40 mg PO BID 01/31/19 01/31/19 History ipratropium bromide 3 ml INHALATION Q12 01/31/19 01/31/19 History metoprolol succinate 50 mg PO BID 01/31/19 01/31/19 History spironolactone 12.5 mg PO BID 01/31/19 01/31/19 History Past Med/Surg History Medical History Hypertension (Chronic) Cerebrovascular disease (Chronic) "ischemic stroke left basal ganglia 2009" Hypothyroidism (Chronic) Dementia (Chronic) "mild" Urinary incontinence (Chronic) COPD (chronic obstructive pulmonary disease) (Chronic) Carotid artery disease (Chronic) "carotid duplex [facility] 11/29/16: bilat plaque, moderate ECA stenosis bilat, no significant ICA stenosis" Symptomatic bradycardia (Chronic) "S/P pacemaker" Diastolic CHF (Chronic) Atrial fibrillation (Chronic) Surgical History S/P placement of cardiac pacemaker (Chronic) Family History Other Family history unobtainable due to patient's condition Social History Preferred Language: Bulgarian Communication Ability: Impaired Civil Engineer Required: No Beliefs That Will Affect Care: None marital status: Current Living Situation: Retirement Current Living Situation Comment: [facility] Other Information That Helps Us Care for You: No Feels Safe at Home: Yes Safety Concerns: Feels Safe At This Time Smoking Status: Never smoker Do You Dip or Chew Tobacco: No Second Hand Exposure: No Tobacco Cessation Education Requested by Patient: No Hx Alcohol Use: No Hx Substance Use: No Review of Systems Review of Systems: Unobtainable due to reduced consciousness Physical Exam Physical Exam: Please refer to Dr. Collier's addendum for physical exam. Results & Data Vital Signs (Past 12 Hours) Vital Signs Pulse Pulse Resp BP BP Pulse Ox 01/31/19 16:13 100 H 27 H 116/92 93 01/31/19 15:34 88 L 01/31/19 15:30 90 34 H 115/82 88 L 01/31/19 15:00 87 24 135/74 93 01/31/19 14:37 88 24 107/71 95 01/31/19 14:00 117 H 26 H 99 01/31/19 13:42 120 H 25 H 138/73 01/31/19 13:40 93 01/31/19 13:29 118 H 24 164/125 H 93 Laboratory Results Short CBC 01/31/19 Range/Units 13:24 WBC 6.58 (4.8-10.8) K/uL Hgb 14.5 (12.0-16.0) g/dL Hct 43.9 (37-47) % Plt Count 250 (130-400) K/uL BMP 01/31/19 13:24 Sodium 139 Potassium 4.7 Chloride 104 Carbon Dioxide 29 BUN 15 Creatinine 1.15 Glucose 89 Calcium 9.1 Cardiac Enzymes 01/31/19 Range/Units 13:24 Troponin I < 0.015 (0-0.045) ng/ml Liver Function 01/31/19 Range/Units 13:24 Total Bilirubin 0.5 (0.2-1) mg/dl AST 23 (15-37) U/L ALT 18 (12-78) U/L Alkaline Phosphatase 116 (45-117) U/L Albumin 3.2 L (3.4-5.0) gm/dl Urine 01/31/19 Range/Units 15:17 Urine Color Yellow Urine Appearance Cloudy A (Clear) Urine pH 6.0 (4.5-7.5) Ur Specific [place] >= 1.030 (1.000-1.030) Urine Protein 3+ H (Negative) Urine Glucose (UA) Negative (Negative) Diagnostic Findings HEAD CT IMPRESSION: 1. Motion degraded exam without acute intracranial hemorrhage or midline shift. 2. Ill-defined decreased attenuation about the right MCA distribution with blurring of the delgado-white interface is suggestive of acute territorial infarct. 3. Age-related involutional changes with advanced chronic microvascular ischemic disease. Code Status & VTE Plan Code Status Patient is a DNR as per POLST form sent with her from the long term as well as per my discussion with Viktoriya Chavez, footwear sales representative from [facility] (patient's appointed guardianship company). Supervising Physician Co-Signing Physician Notes Patient is an 88-year-old female with history of dementia, CVA, hypothyroidism, atrial fibrillation on chronic anticoagulation, diastolic CHF, COPD and other problems presents with history of sudden onset of facial droop, slurred speech, left-sided weakness started after having her lunch this afternoon noticed by her . Patient was brought to the ED for further evaluation. CT head showed findings suggestive of right MCA CVA. [facility] stroke, neurology Dr. Jackson was consulted and he recommended no intervention for transfer or acute intervention. Patient has a complete left-sided neglect while in ED. She was noted to be gazing towards the right side. No known history of chest pain, shortness of breath. Patient is mostly wheelchair-bound at baseline. On review of records, patient was noted to be refusing her medications at [facility]. Her last aspirin was 4 days ago and her last Eliquis dose was on Friday. She was noted to be in A. fib RVR while in ED which later was rate controlled with 1 dose of IV Lopressor. Please review HPI for complete details of presentation. Patient was thought to be not a candidate for TPA. Patient's condition was discussed with neurologist on-call Dr. Luna. Plan to repeat CT scan in the morning. No plan for anticoagulation given concern for conversion to hemorrhagic CVA. Will give aspirin rectally. MRI of brain could not be obtained secondary to pacemaker. N.p.o. for now given significant facial droop. Allow permissive hypertension in setting of acute CVA. Case was also discussed with court-appointed guardian, confirmed CODE STATUS to be DNI DNR. Consider IV Lopressor as needed if recurrence of A. fib RVR. Resume oral home medications after speech eval as able. Monitor volume status. Likely poor prognosis given age, comorbidities. Patient's informs that he does not want the patient to be discharged back to outside. Case management consulted. Palliative care consulted to address goals of care. Physical Exam: Vitals signs as noted above General Appearance:Moderately built and nourished, no apparent distress Head: normocephalic, Atraumatic, +Facial droop, Right sided gaze Eyes: normal inspection, EOMI Neck: supple, Trachea midline Respiratory/Chest: Decreased breath sounds, + basal crackles Cardiovascular: Irregularly Irregular, No murmur Abdomen/GI:Soft, Non tender, Bowel sounds present Extremities/Musculoskelatal:normal inspection, 1-2+ B/L LE edema Neurologic/Psych:Left sided paralysis, +facial droop, slurred speech, left sided neglect Skin:normal color,warm I personally reviewed the record. Patient is interviewed and examined at bedside. Patient's care is coordinated with Shalonda Mckenzie DAYCARE PROVIDER. Please refer to the documentation above for details of patient's presentation and for discussion of other issues.
[2019-01-31] MEDS ORDERED: PHARMACIST DISCHARGE MED REC CONSULT PRN (16:52)
[2019-01-31] MEDS ORDERED: BISACODYL 10 MG SUPP PR PRN (16:52)
[2019-01-31] MEDS ORDERED: SODIUM CHLORIDE 0.9% 1000ML 1,000 ML IV SCH (16:52)
[2019-01-31] MEDS ORDERED: SODIUM CHLORIDE 0.9% 1000ML 1,000 ML IV ONE ×2 (16:54→20:30)
[2019-01-31] MEDS: ASPIRIN 300 MG SUPP PR SCH ×2 (17:15→17:42)
[2019-01-31 17:38] LABS: iSTAT Allen Test Pass; iSTAT Arterial Blood Gas HCO3 27 meg/L (19-24); iSTAT Carbon Dioxide 29 mEq/l (24-31)
[2019-01-31] MEDS: ALBUT/IPRATROP 3MG/0.5MG NEB 3 ML VIAL NEB SCH (18:55)
[2019-01-31] MEDS ORDERED: ALBUTEROL 0.083% NEBU SOLN 3 ML VIAL INH SCH (20:00)
[2019-01-31] MEDS ORDERED: Nursing to Pharmacy Communication ONE (20:24)
[2019-01-31] MEDS ORDERED: IPRATROPIUM BROMIDE NEB SOLN 0.02% 2.5 ML VIAL INH SCH (21:00)
[2019-01-31] MEDS ORDERED: ALBUMIN 25% 50 ML IV ONE (22:53)
[2019-01-31] MEDS ORDERED: DIGOXIN 250 MCG in SYRINGE 9 ML IV ONE (23:00)
[2019-01-31] MEDS ORDERED: XOPENEX/ATROVENT 1.25mg/0.5MG NEB COMBO NEB STA (23:32)
[2019-01-31] MEDS ORDERED: DEXTROSE 5% 1,000 ML IV SCH (23:45)
[2019-01-31] MEDS ORDERED: LEVALBUTEROL 1.25MG/0.5ML NEB INH STA (23:57)
[2019-01-31] MEDS ORDERED: IPRATROPIUM BROMIDE NEB SOLN 0.02% 2.5 ML VIAL INH STA (23:57)
[2019-02-01] MEDS ORDERED: METOPROLOL TARTRATE 1 MG/ML VIAL IV STA ×2 (04:07→22:04)
[2019-02-01] MEDS ORDERED: MoRPHine SULFATE 4 MG/ML 1 ML CARP\\VIAL IV PRN (04:10)
[2019-02-01] MEDS ORDERED: ACETAMINOPHEN 65 ML IV ONE (04:15)
[2019-02-01] MEDS ORDERED: FUROSEMIDE 20 MG in SYRINGE 0 ML IV ONE (04:15)
[2019-02-01 06:26] LABS: Estimated Average Glucose 137 mg/dl
[2019-02-01 06:33] LABS: Basophils # (auto) 0.01 K/uL (0-0.2); Basophils % (auto) 0.1 %; Eosinophils # (auto) 0.03 K/uL (0-0.5); Eosinophils % (auto) 0.4 %; Hematocrit (blood only) 39.8 % (37-47); Immature Granulocytes # (auto) 0.01 K/uL (0.00-0.02); Immature Granulocytes % (auto) 0.1 %; Lymphocytes # (auto) 0.75 K/uL (1.2-3.4); Lymphocytes % (auto) 10.2 %; Mean Corpuscular Hgb Conc 32.7 g/dL (32-36); Mean Corpuscular Volume 93.6 fL (80-100); Mean Platelet Volume 9.3 fL (7.4-10.4); Monocytes # (auto) 0.55 K/uL (0.11-0.59); Monocytes % (auto) 7.5 %; Neutrophils # (auto) 5.98 K/uL (1.4-6.5); Neutrophils % (auto) 81.7 %; Platelet Count 233 K/uL (130-400); RDW Coefficient of Variation 16.3 % (11.5-14.5); RDW Standard Deviation 55.7 fL (36.4-46.3); Red Blood Count 4.25 M/uL (4.2-5.4); White Blood Count 7.33 K/uL (4.8-10.8)
[2019-02-01] MEDS: ALBUT/IPRATROP 3MG/0.5MG NEB 3 ML VIAL NEB SCH ×4 (06:56→19:48)
--- NOTE | 2019-02-01 07:02 | XRay Report ---
SINGLE VIEW CHEST CLINICAL HISTORY: Hypoxia. FINDINGS: An AP, portable, upright chest radiograph is compared to study dated 08/02/2018. Correlation is made with chest CT dated 11/07/2017. The examination is degraded by portable technique and patient rotation. A 2-lead cardiac pacemaker is unchanged in position and partially obscures the left mid zari st. The heart is enlarged and there is atherosclerotic calcification of the thoracic aorta. There is mild pulmonary vascular congestion. There are small pleural effusions with bibasilar consolidation, l eft greater than right. No pneumothorax is seen. The skeletal structures are osteopenic. There are he aled right-sided rib fractures. Degenerative change is noted in the shoulders and thoracic spine. IMPRESSION: 1. Cardiomegaly and cardiac pacemaker. There is mild pulmonary vascular congestion. 2. Small pleural effusions with bibasilar consolidation, left larger than right. Electronically signed by: Nicolás Ochoa M.D. 02/01/2019 7:00 AM
[2019-02-01 07:03] LABS: BUN Creatinine Ratio 15.4 (10-20); Calcium 9.3 mg/dl (8.5-10.1); Creatinine Clr Calc Pharmacy 45.5 ml/min; Est GFR (Non-African American) 49.2; Potassium 4.6 mmol/L (3.5-5.1)
[2019-02-01] MEDS: ASPIRIN 300 MG SUPP PR SCH (08:03)
[2019-02-01] MEDS ORDERED: OPTIRAY 320 125ml IV PRN (09:14)
--- NOTE | 2019-02-01 09:29 | CT Scan Report ---
CT ANGIOGRAM OF THE BRAIN CLINICAL HISTORY: Strokelike symptoms. COMPARISON STUDY: Unenhanced CT of the brain dated 01/31/2019. MR angiogram of the brain dated 010. TECHNIQUE: Following the IV administration of 120 cc of Optiray 320, CT angiogram of the brain was pe rformed from the skull base to the vertex. Images are reviewed in the axial, sagittal, and coronal pl anes. 3-D MIPS images are created and assessed. IV contrast was administered without complication. A dose lowering technique was utilized adhering to the principles of ALARA. CT DOSE: 121.62 mGy.cm FINDINGS: Brain parenchyma: Again seen is diffuse loss of delgado-white matter differentiation throughout the righ t MCA territory consistent with a large evolving infarct. There is effacement of the overlying cortic al sulci. This also likely involves the right basal ganglia and possibly the right thalamus. There is age-related involutional change noting moderate to advanced subcortical and periventricular microang iopathic disease. There is no hemorrhage or midline shift. There is no evidence of enhancing mass les ion on the angiogram phase images. No extra-axial fluid collection is seen. Ventricles, sulci, and cisterns: Prominent secondary to involutional change. CT angiogram of the brain: There is atherosclerotic calcification of the cavernous carotid and verteb ral arteries. There is asymmetrically diminished flow within the right internal carotid artery at the skull base is compared to the left. The right internal carotid artery is patent as visualized. The l eft internal carotid artery at the skull base is patent, as are the left middle cerebral artery and b oth anterior cerebral arteries. There is no flow identified within the right middle cerebral artery d istal to the M1 segment. The vertebrobasilar system and posterior cerebral arteries are patent. There is atherosclerotic irregularity of the left posterior cerebral artery. The right vertebral artery is dominant. No aneurysm is seen. Dural sinuses: Clear as visualized. Orbits: The bony orbits are intact. The orbital contents are normal as visualized. Sinuses and mastoids: There is subtotal opacification of the left maxillary antrum. Thickening and sc lerosis of the sinus wall indicates chronicity. The remaining paranasal sinuses are clear. The mastoi d air cells are well pneumatized. Calvarium: Unremarkable. IMPRESSION: 1. There is a large evolving right MCA territory infarct. 2. No hemorrhage or midline shift is identified. 3. There is no flow identified within the right MCA distal to the M1 segment, likely representing thr ombosis of the vessel. 4. There is asymmetrically diminished flow within the right internal carotid artery at the skull base as compared to the left. The vessel remains patent. Electronically signed by: Nicolás Ochoa M.D. 02/01/2019 9:27 AM
--- NOTE | 2019-02-01 10:33 | Hospitalist Progress Note ---
Date of Service February 01, 2019 Assessment & Plan (1) Acute ischemic cerebrovascular accident (CVA) involving right middle cer ebral artery territory: In the ED, CT head showing acute right MCA infarct Stroke alert was called however patient was not felt to be an TPA candidate secondary to advanced age and currently being prescribed Eliquis for atrial fibrillation On exam, patient has a left-sided neglect with left facial droop, slurred speech, left hemiparesis Patient is prescribed Eliquis for stroke prevention in atrial fibrillation however per review of MAR, patient has refused this medication several times CVA likely secondary to medication noncompliance Unable to obtain MRI secondary to pacemaker Poor prognosis-->Palliative care consult Rectal ASA while NPO, cannot cont Lipitor while obtunded. Cont supportive care. Apprec Neuro Recs. Speech/PT/OT assessments when more awake. Currently obtunded after morphine 2mg IV administration (2) Atrial fibrillation: Came in with RVR, given dig IV and metoprolol for persistent HR in the one-teens. Currently bradycardic. Likely 2/2 these meds and recent morphine administration. Pt is obtunded. Will cont to monitor clinically. Eliquis being held as high risk for hemorrhagic conversion. (3) S/P placement of cardiac pacemaker: cannot receive MRI (4) Hypothyroidism: Synthroid held, give IV at 50% while NPO. (5) Dementia: delirium precautions, ambulate when able. (6) Urinary incontinence: De Oliveira in place. (7) DVT prophylaxis: SCDs for now DNR/DNI Dispo-cont hospitalization. Blaire Griggs DO [facility] Hospitalist Subjective lethargic, withdraws to pain but does not open her eyes to voice or sternal rub. No acute respiratory distress, breathing 22 BPM by my 60 sec count. No evidence of edema or JVD. Lasix 20mg IV x one overnight and takes 40mg PO BID at [facility]. Good diuresis effect with 550 out overnight and 1L out in De Oliveira bag currently ([id number]). IVF were stopped. Evolving infarct on CTA. MRI cannot be performed 2/2 PM. Pt is a confirmed DNR. Review of Systems Review of Systems: Unobtainable due to reduced consciousness Physical Exam Physical Exam: CONSTITUTIONAL: obese, vitals as above, generally lethargic and difficult to arouse. EYES: PERRL, normal conjunctivae, no scleral icterus ENT: oropharynx clear, partials in place, mucous membranes dry but she is open- mouth breathing with Oxymask in place NECK: trachea midline RESPIRATORY: cannot assess 2/2 reduced consciousness CARDIOVASCULAR: regular rate and rhythm, S1 and 2 heard without murmurs, gallops or rubs, no JVD, no peripheral edema GASTROINTESTINAL: soft, nondistended, no guarding MUSCULOSKELETAL: cannot be assessed 2/2/ reduced consciousness SKIN: warm and dry NEUROLOGIC: could not elicit reflexes, otherwise cannot assess 2/2 reduced consciousness PSYCHIATRIC: obtunded Results & Data Vital Signs (Past 12 Hours) Vital Signs Temp Pulse Pulse Resp BP BP Pulse Ox 02/01/19 07:55 36.8 C 114 H 28 H 129/78 93 02/01/19 06:56 109 H 26 H 93 02/01/19 04:20 126 H 153/102 H 02/01/19 03:33 37.2 C 119 H 32 H 150/94 H 97 02/01/19 00:57 36.9 C 119 H 25 H 140/75 97 02/01/19 00:05 91 H 24 98 01/31/19 23:13 112 H 01/31/19 22:50 122 H 20 110/81 95 Laboratory Results Short CBC 01/31/19 02/01/19 Range/Units 13:24 06:04 WBC 6.58 7.33 (4.8-10.8) K/uL Hgb 14.5 13.0 (12.0-16.0) g/dL Hct 43.9 39.8 (37-47) % Plt Count 250 233 (130-400) K/uL BMP 01/31/19 02/01/19 13:24 06:04 Sodium 139 140 Potassium 4.7 4.6 Chloride 104 104 Carbon Dioxide 29 29 BUN 15 16 Creatinine 1.15 1.03 Glucose 89 119 H Calcium 9.1 9.3 Cardiac Enzymes 01/31/19 Range/Units 13:24 Troponin I < 0.015 (0-0.045) ng/ml Liver Function 01/31/19 Range/Units 13:24 Total Bilirubin 0.5 (0.2-1) mg/dl AST 23 (15-37) U/L ALT 18 (12-78) U/L Alkaline Phosphatase 116 (45-117) U/L Albumin 3.2 L (3.4-5.0) gm/dl Urine 01/31/19 Range/Units 15:17 Urine Color Yellow Urine Appearance Cloudy A (Clear) Urine pH 6.0 (4.5-7.5) Ur Specific [place] >= 1.030 (1.000-1.030) Urine Protein 3+ H (Negative) Urine Glucose (UA) Negative (Negative) Medications Administered Current Inpatient Medications Albuterol (Duoneb) 3 ml NEB QIDR MONICA Stop: 03/02/19 19:59 Last Admin: 02/01/19 06:56 Dose: 3 ml Documented by: Aspirin (Aspirin) 300 mg NM DAILY MONICA Stop: 03/02/19 16:51 Last Admin: 02/01/19 08:03 Dose: Not Given Documented by: Bisacodyl (Dulcolax) 10 mg NM DAILY PRN PRN Reason: Constipation Stop: 03/02/19 16:51 Ioversol (Optiray 320 125ml) 120 ml IV ONCE PRN PRN Reason: Interaction Checking Stop: 02/05/19 09:13 Last Admin: 02/01/19 09:15 Dose: 120 ml Documented by: Miscellaneous Information (Pharmacist Discharge Med Rec Consult) 1 ea N/A UD PRN PRN Reason: Consult Stop: 03/02/19 16:51 Morphine Sulfate (Morphine Sulfate) 2 mg IV Q4H PRN PRN Reason: Pain Stop: 02/15/19 04:09 Last Admin: 02/01/19 08:02 Dose: 2 mg Documented by:
[2019-02-01] MEDS: LEVOTHYROXINE SODIUM 50 MCG in SYRINGE 0 ML IV SCH (11:15)
--- NOTE | 2019-02-01 13:08 | Palliative Care Consultation ---
Date of Consultation February 01, 2019 Assessment & Plan (1) Goals of care, counseling/discussion: -88 year old female patient with PMH COPD, oxygen-dependence, chronic hypercapnia, atrial fibrillation on Eliquis, hypothyroidism, ambulatory dysfunction and vascular dementia, presented to the hospital with acute right MCA stroke from the [facility]. There was a stroke alert called in the ED, but patient deemed not a candidate for TPA as she is on Eliquis. Patient is known to the [facility], and aware that patient has legal guardians who make her medical decisions. Legal guardian was contacted by admitting provider who stated that patient should receive conservative medical treatment as needed, but nothing invasive or aggressive. Patient does have a POLST form that states DNR and comfort measures. Patient was admitted to telemetry unit, her heart rate is being treated with IV medications, her Eliquis is on hold. Repeat CT scan today showed large evolving right MCA stroke again, but no hemorrhagic conversion. Per Dr. Griggs, continue current care with no escalation and see how she does in the next 24-48 hours to determine patient's new baseline and discharge needs. Palliative care is consulted to assist with establishing goals of care and provide support. -Patient is known to palliative care service from several previous admissions. -Met with patient in room 209. It was after she had a dose of morphine 2mg IV, so she was essentially obtunded. Per documentation, she was awake on admission with left sided facial droop and left sided weakness. Dr. Griggs discontinued the morphine. -Will need to wait and see how patient progresses in the next 24-48 hours to know what her new baseline is, recovery potential, etc. Neurology is following. If no hemorrhagic conversion, may restart Eliquis. -Spoke with patient's legal guardian through [facility], Viktoriya Chavez ([phone]). She confirmed that patient's is still not allowed to make any medical decisions for the patient. The plan will be for patient to return to the [facility] upon discharge. If patient's condition severely worsens, they should be contacted about whether or not to transition to comfort measures only. Again, no escalation in care. -Palliative care will continue to follow and assist as needed. -No symptom management needs at this time. (2) Acute ischemic cerebrovascular accident (CVA) involving right middle cerebral artery territory: (3) Atrial fibrillation: (4) Dementia: Supervising Physician Co-Signing Physician Notes Chart reviewed, patient seen and examined-patient known to our service from prior hospitalizations Patient's daughter, Yen, at bedside PE: Patient unresponsive to voice or touch Respiratory: Unlabored on O2 via oxygen mask, diminished breath sounds bilaterally CV: Tachycardic on exam, no edema Abdomen: Soft, no grimace with palpation, obese Neuro: Unresponsive to voice or touch Agree with above note, assessment and plan as per KENTON [place]. Met with daughter at length-reviewed CTA scans with her as well as patient's current condition and prognosis. Collaborated with neurology and attending physician. History of Present Illness Reason for Consultation: Goals of care Requesting Physician: KENTON Nugent Attending Physician: Blaire Griggs, History of Present Illness This 88 year old female patient with PMH COPD, oxygen-dependence, chronic hypercapnia, atrial fibrillation on Eliquis, hypothyroidism, ambulatory dysfunction and vascular dementia, presented to the hospital with acute right MCA stroke from the [facility]. There was a stroke alert called in the ED, but patient deemed not a candidate for TPA as she is on Eliquis. Patient is known to the [facility], and aware that patient has legal guardians who make her medical decisions. Legal guardian was contacted by admitting provider who stated that patient should receive conservative medical treatment as needed, but nothing invasive or aggressive. Patient does have a POLST form that states DNR and comfort measures. Patient was admitted to telemetry unit, her heart rate is being treated with IV medications, her Eliquis is on hold. Repeat CT scan today showed large evolving right MCA stroke again, but no hemorrhagic conversion. Per Dr. Griggs, continue current care with no escalation and see how she does in the next 24-48 hours to determine patient's new baseline and discharge needs. Palliative care is consulted to assist with establishing goals of care and provide support. Thank you kindly for this consult. I will follow as needed. Allergies Allergy/AdvReac Type Severity Reaction Status Date / Time Penicillins Allergy Unknown RXN TO Verified 01/31/19 13:58 AMOXICILLIN adhesive AdvReac Mild RXN TO TAPE Verified 01/31/19 13:58 Home Medications Home Medications Medication Instructions Recorded Confirmed Type Eliquis 5 mg PO BID 07/20/18 01/31/19 History Fleet Enema 118 ml TN DAILY PRN 07/20/18 01/31/19 History acetaminophen 650 mg PO Q6H PRN MDD 3gm/24hr 07/20/18 01/31/19 History aspirin 81 mg PO QAM 07/20/18 01/31/19 History atorvastatin [Lipitor] 40 mg PO HS 07/20/18 01/31/19 History bisacodyl [Dulcolax (bisacodyl)] 10 mg TN DAILY PRN 07/20/18 01/31/19 History cholecalciferol (vitamin D3) 4,000 unit PO QAM 07/20/18 01/31/19 History [Vitamin D3] furosemide [Lasix] 40 mg PO DAILY 07/20/18 01/31/19 History latanoprost 1 drp OPB HS 07/20/18 01/31/19 History levothyroxine 100 mcg PO QAM 07/20/18 01/31/19 History magnesium hydroxide [Milk of 2,400 mg PO UD PRN 07/20/18 01/31/19 History Magnesia] oxybutynin chloride 5 mg PO QAM 07/20/18 01/31/19 History sennosides-docusate sodium [Senna 1 tab PO BID 07/20/18 01/31/19 History with Docusate Sodium] albuterol sulfate 2.5 mg INHALATION Q12 01/31/19 01/31/19 History furosemide [Lasix] 40 mg PO BID 01/31/19 01/31/19 History ipratropium bromide 3 ml INHALATION Q12 01/31/19 01/31/19 History metoprolol succinate 50 mg PO BID 01/31/19 01/31/19 History spironolactone 12.5 mg PO BID 01/31/19 01/31/19 History Patient History Medical History Hypertension (Chronic) Cerebrovascular disease (Chronic) "ischemic stroke left basal ganglia 2009" Hypothyroidism (Chronic) Dementia (Chronic) "mild" Urinary incontinence (Chronic) COPD (chronic obstructive pulmonary disease) (Chronic) Carotid artery disease (Chronic) "carotid duplex [facility] 11/29/16: bilat plaque, moderate ECA stenosis bilat, no significant ICA stenosis" Symptomatic bradycardia (Chronic) "S/P pacemaker" Diastolic CHF (Chronic) Atrial fibrillation (Chronic) Surgical History S/P placement of cardiac pacemaker (Chronic) Family History Other Family history unobtainable due to patient's condition Social History Preferred Language: Azeri Communication Ability: Unable Casing 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 Required: No Beliefs That Will Affect Care: None marital status: Current Living Situation: [facility] Current Living Situation Comment: [facility] Other Information That Helps Us Care for You: No Feels Safe at Home: Yes Safety Concerns: Feels Safe At This Time Smoking Status: Never smoker Do You Dip or Chew Tobacco: No Second Hand Exposure: No Tobacco Cessation Education Requested by Patient: No Hx Alcohol Use: No Hx Substance Use: No Review of Systems Review of Systems: Unobtainable due to cognitive status and Unobtainable due to reduced consciousness Physical Exam Constitutional: + ill appearing (chronically) and + overweight; no acute distress ENMT: external ear and nose normal, oropharynx normal Respiratory: normal respiratory effort Auscultation: + diminished lung sounds Cardiovascular: RRR, no murmur, no edema Gastrointestinal (Abdomen): Inspection/Auscultation: normal bowel sounds Pe rcussion/Palpation: abdomen soft Neurologic: + not awake (drowsy/obtunded) Results & Data Vital Signs (Past 12 Hours) Vital Signs Temp Pulse Pulse Resp BP BP Pulse Ox 02/01/19 11:45 36.9 C 92 H 24 111/89 98 02/01/19 11:06 82 24 90 02/01/19 07:55 36.8 C 114 H 28 H 129/78 93 02/01/19 06:56 109 H 26 H 93 02/01/19 04:20 126 H 153/102 H 02/01/19 03:33 37.2 C 119 H 32 H 150/94 H 97 PG Care Time/CCT Total # of Minutes Spent Total Time Spent with Patient: Total time spent is greater than 50% in coordination of care (as documented) at patient's floor/unit and/or counseling patient: Time Spent Midlevel 70 minutes with >50% of the time spent at bedside with patient, provider, and on phone with legal guardian discussing condition and GOC. Attending Spent 35 minutes in addition to the 70 minutes spent by KENTON Harman for a total of 105 minutes-with greater than 50% of the time spent at bedside reviewing patient's current condition as well as prognosis with patient's daughter at bedside.
--- NOTE | 2019-02-01 14:33 | Neurology Consultation ---
Date of Consultation February 01, 2019 Assessment & Plan (1) Acute ischemic cerebrovascular accident (CVA) involving right middle cerebral artery territory: 1. CVA- likely due to non complainance with Eliquis and aspirin continue to hold Eliquis for 14 days due to size of stroke 2. CT head- should be repeated in 24 hours- watch for hemorrhagic converison, then with MS changes 3. continue metoprolol for rate control 4. PT/OT speech for discharge needs 5. palliative medicine involved for help with direction of care 6. avoid morphine for pain control for now- has been too sedating 7. optimize DM, HLD, HTN- consider non excalation plan of care 8. peak for hemorrhagic converision 3 days, may not survive event -discussed with daughter Supervising Physician Co-Signing Physician Notes I have seen and discussed above patient with Dr Joanie Guillaume, neurology. Pt seen and examined, hx reviewed. Hx of afib and intermittent noncompliance with asa, eliquis. clinically large R MCA infarct. Pt was not a canditate for TPA. Due to large clinical size of stroke ( likely related to afib) would hold off AC for 1-2 weeks, then repeat CT head with decision re anticoagulants at that time. ASA in the interim, risk modification. Prognosis for meaningful recovery is poor given large size of stroke, pt age and baseline status VIVEK Guillaume MD History of Present Illness Reason for Consultation: CVA Requesting Physician: Blaire Griggs DO Attending Physician: Blaire Griggs DO History of Present Illness Anju is a 88 year old female with a PMH HTN, hypothyroidism, dementia, COPD, CAD, lakesha cardia, AF with pacemaker, CHF brought to the ED from [facility] for evaluation of strokelike symptoms. She had eaten lunch with her and about 1 hour later her speech was slurred, had a left-sided facial droop, and would not move left side. She does often refuse her medications and oxygen. She is on Eliquis for history of atrial fibrillation. A stroke alert was called but was not TPA candidate secondary to advanced age and being prescribed Eliquis. CT head shows an acute right MCA infarct. Her last Eliquis dose was Friday and the last aspirin several days ago. Currently Eliquis on hold due to possible hemorrhagic conversion. Her daughter is in the room and states she was non ambulatory at baseline had vascular dementia, was able to feed herself, do juvenile puzzles. Currently she is lying on her back with venti mask, she blinks her eyes with stimulation follows commands to squeeze hands and wiggle toes. Allergies Allergy/AdvReac Type Severity Reaction Status Date / Time Penicillins Allergy Unknown RXN TO Verified 01/31/19 13:58 AMOXICILLIN adhesive AdvReac Mild RXN TO TAPE Verified 01/31/19 13:58 Home Medications Home Medications Medication Instructions Recorded Confirmed Type Eliquis 5 mg PO BID 07/20/18 01/31/19 History Fleet Enema 118 ml CA DAILY PRN 07/20/18 01/31/19 History acetaminophen 650 mg PO Q6H PRN MDD 3gm/24hr 07/20/18 01/31/19 History aspirin 81 mg PO QAM 07/20/18 01/31/19 History atorvastatin [Lipitor] 40 mg PO HS 07/20/18 01/31/19 History bisacodyl [Dulcolax (bisacodyl)] 10 mg CA DAILY PRN 07/20/18 01/31/19 History cholecalciferol (vitamin D3) 4,000 unit PO QAM 07/20/18 01/31/19 History [Vitamin D3] furosemide [Lasix] 40 mg PO DAILY 07/20/18 01/31/19 History latanoprost 1 drp OPB HS 07/20/18 01/31/19 History levothyroxine 100 mcg PO QAM 07/20/18 01/31/19 History magnesium hydroxide [Milk of 2,400 mg PO UD PRN 07/20/18 01/31/19 History Magnesia] oxybutynin chloride 5 mg PO QAM 07/20/18 01/31/19 History sennosides-docusate sodium [Senna 1 tab PO BID 07/20/18 01/31/19 History with Docusate Sodium] albuterol sulfate 2.5 mg INHALATION Q12 01/31/19 01/31/19 History furosemide [Lasix] 40 mg PO BID 01/31/19 01/31/19 History ipratropium bromide 3 ml INHALATION Q12 01/31/19 01/31/19 History metoprolol succinate 50 mg PO BID 01/31/19 01/31/19 History spironolactone 12.5 mg PO BID 01/31/19 01/31/19 History Patient History Medical History Hypertension (Chronic) Cerebrovascular disease (Chronic) "ischemic stroke left basal ganglia 2009" Hypothyroidism (Chronic) Dementia (Chronic) "mild" Urinary incontinence (Chronic) COPD (chronic obstructive pulmonary disease) (Chronic) Carotid artery disease (Chronic) "carotid duplex [facility] 11/29/16: bilat plaque, moderate ECA stenosis bilat, no significant ICA stenosis" Symptomatic bradycardia (Chronic) "S/P pacemaker" Diastolic CHF (Chronic) Atrial fibrillation (Chronic) Surgical History S/P placement of cardiac pacemaker (Chronic) Family History Other Family history unobtainable due to patient's condition Social History Preferred Language: Cypriot Communication Ability: Unable Clay Roaster Required: No Beliefs That Will Affect Care: None marital status: Current Living Situation: Detention Current Living Situation Comment: [facility] Other Information That Helps Us Care for You: No Feels Safe at Home: Yes Safety Concerns: Feels Safe At This Time Smoking Status: Never smoker Do You Dip or Chew Tobacco: No Second Hand Exposure: No Tobacco Cessation Education Requested by Patient: No Hx Alcohol Use: No Hx Substance Use: No Physical Exam Physical Exam: Gen: blinks eyes with stimulation lungs course breath sounds CV irregular squeezes with right hand, no movement in left hand wiggles toes on right no movement on left Results & Data Vital Signs (Past 12 Hours) Vital Signs Temp Pulse Pulse Resp BP BP Pulse Ox 02/01/19 11:45 36.9 C 92 H 24 111/89 98 02/01/19 11:06 82 24 90 02/01/19 07:55 36.8 C 114 H 28 H 129/78 93 02/01/19 06:56 109 H 26 H 93 02/01/19 04:20 126 H 153/102 H 02/01/19 03:33 37.2 C 119 H 32 H 150/94 H 97 Laboratory Results Abnormal lab results 07/02/1201/31/19 01/31/19 Range/Units 13:24 15:17 17:26 RDW Std Deviation (36.4-46.3) fL RDW Coeff of Jorge (11.5-14.5) % Lymph # (Auto) (1.2-3.4) K/uL POC pCO2 49 H (35-46) mmHg POC pO2 73 L (80-95) mmHg POC HCO3 27 H (19-24) harry/L Glucose (70-99) mg/dl Hemoglobin A1c 6.4 H (4.5-5.6) % Urine Appearance Cloudy A (Clear) Urine Protein 3+ H (Negative) Urine Ketones Trace H (Negative) Urine Blood 3+ H (Negative) Urine RBC 10-30 H (0-4) /hpf Urine WBC 5-10 H (0-5) /hpf Ur Epithelial Cells 20-30 H (0-5) /lpf Amorphous Sediment Present A (None Prsent) 02/01/19 02/01/19 Range/Units 06:04 06:04 RDW Std Deviation 55.7 H (36.4-46.3) fL RDW Coeff of Jorge 16.3 H (11.5-14.5) % Lymph # (Auto) 0.75 L (1.2-3.4) K/uL POC pCO2 (35-46) mmHg POC pO2 (80-95) mmHg POC HCO3 (19-24) harry/L Glucose 119 H (70-99) mg/dl Hemoglobin A1c (4.5-5.6) % Urine Appearance (Clear) Urine Protein (Negative) Urine Ketones (Negative) Urine Blood (Negative) Urine RBC (0-4) /hpf Urine WBC (0-5) /hpf Ur Epithelial Cells (0-5) /lpf Amorphous Sediment (None Prsent) Diagnostic Findings CTA-head- Motion degraded exam without acute intracranial hemorrhage or midline shift. 2. Ill-defined decreased attenuation about the right MCA distribution with blurring of the delgado-white interface is suggestive of acute territorial infarct. Age-related involutional changes with advanced chronic microvascular ischemic disease. CXR-Cardiomegaly and cardiac pacemaker. There is mild pulmonary vascular congestion. Small pleural effusions with bibasilar consolidation, left larger than right.
--- NOTE | 2019-02-01 15:45 | History & Physical Report ---
Date of Service February 01, 2019 History of Present Illness Primary Care Provider: Shan [place] Allergies Allergy/AdvReac Type Severity Reaction Status Date / Time Penicillins Allergy Unknown RXN TO Verified 01/31/19 13:58 AMOXICILLIN adhesive AdvReac Mild RXN TO TAPE Verified 01/31/19 13:58 Home Medications Home Medications Medication Instructions Recorded Confirmed Type Eliquis 5 mg PO BID 07/20/18 01/31/19 History Fleet Enema 118 ml NM DAILY PRN 07/20/18 01/31/19 History acetaminophen 650 mg PO Q6H PRN MDD 3gm/24hr 07/20/18 01/31/19 History aspirin 81 mg PO QAM 07/20/18 01/31/19 History atorvastatin [Lipitor] 40 mg PO HS 07/20/18 01/31/19 History bisacodyl [Dulcolax (bisacodyl)] 10 mg NM DAILY PRN 07/20/18 01/31/19 History cholecalciferol (vitamin D3) 4,000 unit PO QAM 07/20/18 01/31/19 History [Vitamin D3] furosemide [Lasix] 40 mg PO DAILY 07/20/18 01/31/19 History latanoprost 1 drp OPB HS 07/20/18 01/31/19 History levothyroxine 100 mcg PO QAM 07/20/18 01/31/19 History magnesium hydroxide [Milk of 2,400 mg PO UD PRN 07/20/18 01/31/19 History Magnesia] oxybutynin chloride 5 mg PO QAM 07/20/18 01/31/19 History sennosides-docusate sodium [Senna 1 tab PO BID 07/20/18 01/31/19 History with Docusate Sodium] albuterol sulfate 2.5 mg INHALATION Q12 01/31/19 01/31/19 History furosemide [Lasix] 40 mg PO BID 01/31/19 01/31/19 History ipratropium bromide 3 ml INHALATION Q12 01/31/19 01/31/19 History metoprolol succinate 50 mg PO BID 01/31/19 01/31/19 History spironolactone 12.5 mg PO BID 01/31/19 01/31/19 History Past Med/Surg History Medical History Hypertension (Chronic) Cerebrovascular disease (Chronic) "ischemic stroke left basal ganglia 2009" Hypothyroidism (Chronic) Dementia (Chronic) "mild" Urinary incontinence (Chronic) COPD (chronic obstructive pulmonary disease) (Chronic) Carotid artery disease (Chronic) "carotid duplex [facility] 11/29/16: bilat plaque, moderate ECA stenosis bilat, no significant ICA stenosis" Symptomatic bradycardia (Chronic) "S/P pacemaker" Diastolic CHF (Chronic) Atrial fibrillation (Chronic) Surgical History S/P placement of cardiac pacemaker (Chronic) Family History Other Family history unobtainable due to patient's condition Social History Preferred Language: Puerto Rican Communication Ability: Unable Algebra Teacher Required: No Beliefs That Will Affect Care: None marital status: Current Living Situation: [facility] Current Living Situation Comment: [facility] Other Information That Helps Us Care for You: No Feels Safe at Home: Yes Safety Concerns: Feels Safe At This Time Smoking Status: Never smoker Do You Dip or Chew Tobacco: No Second Hand Exposure: No Tobacco Cessation Education Requested by Patient: No Hx Alcohol Use: No Hx Substance Use: No Results & Data Vital Signs (Past 12 Hours) Vital Signs Temp Pulse Pulse Resp BP BP Pulse Ox 02/01/19 15:14 104 H 19 119/63 100 02/01/19 15:04 96 H 26 H 100 02/01/19 11:45 36.9 C 92 H 24 111/89 98 02/01/19 11:06 82 24 90 02/01/19 07:55 36.8 C 114 H 28 H 129/78 93 02/01/19 06:56 109 H 26 H 93 02/01/19 04:20 126 H 153/102 H
[2019-02-01] MEDS ORDERED: MAGNESIUM SULFATE / D5W 1 GM/100 ML BAG IV ONE (22:04)
[2019-02-02] MEDS ORDERED: DIGOXIN 250 MCG in SYRINGE 9 ML IV STA (00:18)
[2019-02-02 03:29] LABS: Basophils # (auto) 0.01 K/uL (0-0.2); Basophils % (auto) 0.1 %; Eosinophils # (auto) 0.08 K/uL (0-0.5); Eosinophils % (auto) 1.2 %; Hemoglobin 12.6 g/dL (12.0-16.0); Immature Granulocytes # (auto) 0.01 K/uL (0.00-0.02); Immature Granulocytes % (auto) 0.1 %; Lymphocytes # (auto) 0.87 K/uL (1.2-3.4); Lymphocytes % (auto) 12.8 %; Mean Corpuscular Hgb Conc 32.3 g/dL (32-36); Mean Corpuscular Volume 92.4 fL (80-100); Mean Platelet Volume 9.1 fL (7.4-10.4); Monocytes % (auto) 10.3 %; Neutrophils # (auto) 5.12 K/uL (1.4-6.5); Neutrophils % (auto) 75.5 %; Platelet Count 211 K/uL (130-400); RDW Coefficient of Variation 16.2 % (11.5-14.5); RDW Standard Deviation 55.4 fL (36.4-46.3); Red Blood Count 4.22 M/uL (4.2-5.4); White Blood Count 6.79 K/uL (4.8-10.8)
[2019-02-02 03:50] LABS: BUN Creatinine Ratio 12.5 (10-20); Calcium 9.1 mg/dl (8.5-10.1); Creatinine Clr Calc Pharmacy 45.5 ml/min; Est GFR (Non-African American) 49.2; Potassium 4.7 mmol/L (3.5-5.1)
[2019-02-02] MEDS ORDERED: DIGOXIN 250 MCG in SYRINGE 9 ML IV SCH (04:00)
[2019-02-02 04:16] LABS: Magnesium 2.2 mg/dl (1.8-2.4)
[2019-02-02] MEDS: IPRATROPIUM BROMIDE NEB SOLN 0.02% 2.5 ML VIAL INH SCH ×2 (07:11→14:10)
[2019-02-02] MEDS: LEVALBUTEROL 1.25MG/0.5ML NEB INH SCH ×2 (07:12→14:10)
[2019-02-02] MEDS ORDERED: XOPENEX/ATROVENT 1.25mg/0.5MG NEB COMBO NEB SCH (08:00)
--- NOTE | 2019-02-02 08:31 | CT Scan Report ---
HEAD CT NONCONTRAST CT DOSE: 1074.96 mGy.cm HISTORY: large R MCA CVA, ?hemorrhagic conversion TECHNIQUE: Multiaxial CT images of the head were performed without the use of intravenous contrast. A utomated exposure control was utilized for this study. A dose lowering technique was utilized adheri ng to the principles of ALARA. Comparison: Head CT 01/31/2019. Findings: Mucosal thickening with partial aspiration the left maxillary sinus, unchanged. The mastoid air cells are clear. The calvarium and skull base are intact. Interval evolution of the large right MCA territory infarct involving the majority of the right cerebral hemisphere. Small linear hyperdens e focus within the infarct is consistent with a hyperdense/thrombosed MCA. No evidence for hemorrhagi c transformation at this time. There is mass effect with partial effacement of the right lateral and third ventricles with interval development of 7 mm of left midline shift. Adrenal crash ischemic ruano ges are again noted. Impression: 1. Evolution of the large right MCA territory infarct involving the majority of the right cerebral he misphere. No evidence for hemorrhagic transformation at this time. 2. Progressive mass effect with development of 7 mm of left midline shift. 3. These findings were discussed with the patient's physician, Dr. Griggs at 8:30 AM on 02/02/2019. Electronically signed by: Marcin Rodríguez M.D. 02/02/2019 8:29 AM
[2019-02-02] MEDS: ASPIRIN 300 MG SUPP PR SCH (08:39)
[2019-02-02] MEDS: LEVOTHYROXINE SODIUM 50 MCG in SYRINGE 0 ML IV SCH (08:54)
--- NOTE | 2019-02-02 09:46 | Hospitalist Progress Note ---
Date of Service February 02, 2019 Assessment & Plan (1) Acute ischemic cerebrovascular accident (CVA) involving right middle cer ebral artery territory: R MCA stroke, now with midline shift. Prognosis poor. Will not give mannitol or hypertonic saline as this is in line with aggressive therapies, and would require ICU level care. I explained this and the prognosis to her daughter, Yen, who verbalized understanding. Would continue to hold on comfort care and allow things to evolve to new baseline for now. Will keep HOB 30-45 degrees at all times to aid venous drainage of inflammation. Cont supportive care measures. Apprec Neuro recommendations. Cont rectal ASA. (2) Atrial fibrillation: Came in with RVR, given dig IV and metoprolol overnight for intermittent tachycardia. Lopressor IV q6hrs PRN tachycardia (3) S/P placement of cardiac pacemaker: cannot receive MRI (4) Hypothyroidism: Synthroid held, give IV at 50% while NPO. (5) Dementia: h/o vascular dementia at baseline, delirium precautions, ambulate when able. (6) Urinary incontinence: De Oliveira in place. (7) DVT prophylaxis: SCDs for now DNR/DNI Dispo-cont hospitalization. Blaire Griggs DO [facility] Hospitalist Subjective Patient remains obtunded, some tachycardia in the setting of known atrial fibrillation overnight. She is off her Lopressor. Review of Systems Review of Systems: Unobtainable due to cognitive status Physical Exam Physical Exam: CONSTITUTIONAL: obese, vitals as above, generally lethargic and difficult to arouse. EYES: PERRL, normal conjunctivae, no scleral icterus ENT: open-mouth breathing with Oxymask in place, MM dry, snoring NECK: trachea midline RESPIRATORY: appears clear, cannot assess 2/2 reduced consciousness CARDIOVASCULAR: regular rate and rhythm, S1 and 2 heard without murmurs, gallops or rubs, no JVD, no peripheral edema GASTROINTESTINAL: soft, nondistended, no guarding MUSCULOSKELETAL: there is clear flaccidity to the LUE, cannot be assessed 2/2 reduced consciousness SKIN: warm and dry NEUROLOGIC: could not elicit reflexes, otherwise cannot assess 2/2 reduced consciousness PSYCHIATRIC: obtunded Results & Data Vital Signs (Past 12 Hours) Vital Signs Temp Pulse Pulse Resp BP BP Pulse Ox 02/02/19 07:38 89 02/02/19 07:13 77 24 95 02/02/19 06:56 36.4 C L 92 H 26 H 134/63 94 02/02/19 03:26 02/02/19 03:09 36.6 C 110 H 16 126/87 91 02/02/19 00:00 36.6 C 106 H 26 H 110/73 92 02/01/19 22:21 132 H 139/74 Pulse Ox 02/02/19 07:38 02/02/19 07:13 02/02/19 06:56 02/02/19 03:26 92 02/02/19 03:09 02/02/19 00:00 02/01/19 22:21 Laboratory Results Short CBC 02/02/19 Range/Units 03:09 WBC 6.79 (4.8-10.8) K/uL Hgb 12.6 (12.0-16.0) g/dL Hct 39.0 (37-47) % Plt Count 211 (130-400) K/uL BMP 02/02/19 03:09 Sodium 138 Potassium 4.7 Chloride 101 Carbon Dioxide 32 BUN 13 Creatinine 1.03 Glucose 105 H Calcium 9.[address] NONCONTRAST CT DOSE: 1074.96 mGy.cm HISTORY: large R MCA CVA, ?hemorrhagic conversion TECHNIQUE: Multiaxial CT images of the head were performed without the use of intravenous contrast. Automated exposure control was utilized for this study. A dose lowering technique was utilized adhering to the principles of ALARA. Comparison: Head CT 01/31/2019. Findings: Mucosal thickening with partial aspiration the left maxillary sinus, unchanged. The mastoid air cells are clear. The calvarium and skull base are intact. Interval evolution of the large right MCA territory infarct involving the majority of the right cerebral hemisphere. Small linear hyperdense focus within the infarct is consistent with a hyperdense/thrombosed MCA. No evidence for hemorrhagic transformation at this time. There is mass effect with partial effacement of the right lateral and third ventricles with interval development of 7 mm of left midline shift. Adrenal crash ischemic changes are again noted. Impression: 1. Evolution of the large right MCA territory infarct involving the majority of the right cerebral hemisphere. No evidence for hemorrhagic transformation at this time. 2. Progressive mass effect with development of 7 mm of left midline shift. 3. These findings were discussed with the patient's physician, Dr. Griggs at 8:30 AM on 02/02/2019. Medications Administered Current Inpatient Medications Aspirin (Aspirin) 300 mg MT DAILY [facility] Stop: 03/02/19 16:51 Last Admin: 02/02/19 08:39 Dose: 300 mg Documented by: Bisacodyl (Dulcolax) 10 mg MT DAILY PRN PRN Reason: Constipation Stop: 03/02/19 16:51 Levothyroxine Sodium 50 mcg/ (Syringe) 2.5 mls @ 2 mls/min IV DAILY@0900 [facility] Stop: 03/03/19 10:59 Last Admin: 02/02/19 08:54 Dose: 2 mls/min Documented by: Sodium Chloride (Nss 1000ml) 1,000 mls @ 80 mls/hr IV .[id number] [facility] Stop: 03/04/19 08:44 Ioversol (Optiray 320 125ml) 120 ml IV ONCE PRN PRN Reason: Interaction Checking Stop: 02/05/19 09:13 Last Admin: 02/01/19 09:15 Dose: 120 ml Documented by: Ipratropium [place] (Atrovent 0.02% 0.5mg/2.5ml) 0.5 mg INH Q6R [facility] Stop: 03/04/19 07:59 Last Admin: 02/02/19 07:11 Dose: 0.5 mg Documented by: Levalbuterol HCl (Xopenex 1.25mg/0.5ml Neb) 1.25 mg INH Q6R [facility] Stop: 03/04/19 07:59 Last Admin: 02/02/19 07:12 Dose: 1.25 mg Documented by: Miscellaneous Information (Pharmacist Discharge Med Rec Consult) 1 ea N/A UD PRN PRN Reason: Consult Stop: 03/02/19 16:51
[2019-02-02] MEDS: SODIUM CHLORIDE 0.9% 1000ML 1,000 ML IV SCH ×2 (10:18→21:55)
--- NOTE | 2019-02-02 15:05 | Neurology Progress Note ---
Date of Service February 02, 2019 Assessment & Plan (1) Acute ischemic cerebrovascular accident (CVA) involving right middle cer ebral artery territory: 1. CVA- likely due to non complainance with Eliquis and aspirin continue to hold Eliquis for 14 days due to size of stroke. Repeat CT head at that point to exclude hemorrhage as contraindication. Rectal ASA appropriate at tus tune 2. CT head- should be repeated in 24 hours- watch for hemorrhagic converison, then with MS changes 3. continue metoprolol for rate control 4. PT/OT speech for discharge needs 5. palliative medicine involved for help with direction of care 6. avoid morphine for pain control for now- has been too sedating 7. optimize DM, HLD, HTN- consider non excalation plan of care 8. peak for hemorrhagic converision 3 days, may not survive event -discussed with daughter 9, CT head- 02/02 repeat increase in midline shift- continue to observe 10. transfer to [facility] requested by which is not POA, no excalation of care will benefit patient at this point neurology will sign off at this point but will be available as needed. Supervising Physician Co-Signing Physician Notes I have seen and discussed above patient with Dr Joanie Guillaume, neurology. Discussed with SARANYA Dumont. Discussed with daughter at bedside. Pt remains awake with L hemiplegia inspite of increased mass effect and shift from extensive R MCA infarct, likely related to a fib. Today is day three and edema should be peaking. Prognosis for meaningful recovery is poor given underlying med comorbidities with superimposed massive stroke. Plan as above, will sign off , but will try to check in with daughter for support. VIVEK Guillaume MD Adriano Rnee is a 88 year old female with a PMH HTN, hypothyroidism, dementia, COPD, CAD, [place] cardia, AF with pacemaker, CHF brought to the ED from [facility] for evaluation of strokelike symptoms. She had eaten lunch with her and about 1 hour later her speech was slurred, had a left-sided facial droop, and would not move left side. She does often refuse her medications and oxygen. She is on Eliquis for history of atrial fibrillation. A stroke alert was called but was not TPA candidate secondary to advanced age and being prescribed Eliquis. CT head shows an acute right MCA infarct. Her last Eliquis dose was Friday and the last aspirin several days ago. Currently Eliquis on hold due to possible hemorrhagic conversion. Her daughter reports she was non ambulatory at baseline had vascular dementia, was able to feed herself, do juvenile puzzles. Currently she is lying on her back with venti mask, she blinks her eyes with stimulation follows commands to squeeze hands and wiggle toes. no family in room Physical Exam Physical Exam: Gen: alter with voice command, tries to open eyes lungs course breath sound CV irregular squeezes with right hand, wiggles toes on right unable to more hand arm or leg on left when asked where she is states "hospital", states "doing ok" are you cold? shakes head "no" Results & Data Vital Signs (Past 12 Hours) Vital Signs Temp Pulse Pulse Resp BP Pulse Ox Pulse Ox 02/02/19 14:10 93 H 22 98 02/02/19 11:49 37.2 C 88 36 H 149/84 H 98 02/02/19 07:38 89 02/02/19 07:13 77 24 95 02/02/19 06:56 36.4 C L 92 H 26 H 134/63 94 02/02/19 03:26 92 02/02/19 03:09 36.6 C 110 H 16 126/[address] head-Evolution of the large right MCA territory infarct involving the majority of the right cerebral hemisphere. No evidence for hemorrhagic transformation at this time. Progressive mass effect with development of 7 mm of left midline shift.
--- NOTE | 2019-02-02 16:53 | Palliative Care Progress Note ---
Date of Service February 02, 2019 Assessment & Plan (1) Goals of care, counseling/discussion: Patient's power of traffic law attorney is a court appointed senior sales representative-plan is no escalation of care (2) Acute ischemic cerebrovascular accident (CVA) involving right middle cerebral artery territory: Follow-up scans show evolving stroke-now with 7 mm midline shift-continue to monitor-goal is comfort, no escalation of care Present on Admission?: No (3) Atrial fibrillation: Rate within acceptable limits-no current medications-goal is comfort care (4) COPD (chronic obstructive pulmonary disease): Patient appears comfortable-continue oxygen at 2 L via oxygen mask, continue PRN neb treatments Subjective Patient seen and examined-patient's daughter at bedside. Collaborated with Joanie Marquis PAC-patient's follow-up scan shows evolving stroke, now with a 7 mm midline shift. Patient was reportedly more responsive earlier today-was able to speak a few words. Patient unresponsive this afternoon on my exam. Met with patient's daughter at bedside-answered her questions and concerns, as well as provided emotional support. Review of Systems Review of Systems: Unobtainable due to reduced consciousness Physical Exam Physical Exam: Patient appears comfortable, no acute distress Respirations: Slightly labored, slightly increased work of breathing, respiratory rate in the 20s. Diminished breath sounds bilaterally CV: Tachycardic Abdomen: Soft, no grimace on palpation Neuro: Unresponsive to voice or touch. Patient does move right upper extremity and both lower extremities Results & Data Vital Signs (Past 12 Hours) Vital Signs Temp Pulse Pulse Resp BP Pulse Ox 02/02/19 15:30 106 H 02/02/19 15:28 98.4 F 109 H 29 H 148/87 H 97 02/02/19 14:10 93 H 22 98 02/02/19 11:49 99.0 F 88 36 H 149/84 H 98 02/02/19 07:38 89 02/02/19 07:13 77 24 95 02/02/19 06:56 97.5 F L 92 H 26 H 134/63 94 PG Care Time/CCT Total # of Minutes Spent Total Time Spent with Patient: Total time spent 40 minutes with greater than 50% of time spent at bedside answering daughter's questions as well as providing support.
[2019-02-02] MEDS ORDERED: IPRATROPIUM BROMIDE NEB SOLN 0.02% 2.5 ML VIAL INH PRN (18:20)
[2019-02-02] MEDS ORDERED: LEVALBUTEROL 1.25MG/0.5ML NEB INH PRN (18:20)
[2019-02-02] MEDS: METOPROLOL TARTRATE 1 MG/ML VIAL IV PRN (20:34)
[2019-02-03 06:33] LABS: Hematocrit (blood only) 43.8 % (37-47); Hemoglobin 14.1 g/dL (12.0-16.0); Mean Corpuscular Hgb Conc 32.2 g/dL (32-36); Mean Platelet Volume 8.9 fL (7.4-10.4); Platelet Count 210 K/uL (130-400); RDW Coefficient of Variation 15.9 % (11.5-14.5); Red Blood Count 4.71 M/uL (4.2-5.4); White Blood Count 8.08 K/uL (4.8-10.8)
[2019-02-03 07:05] LABS: Potassium 4.4 mmol/L (3.5-5.1)
[2019-02-03 07:06] LABS: BUN Creatinine Ratio 16.8 (10-20); Calcium 9.9 mg/dl (8.5-10.1); Creatinine Clr Calc Pharmacy 55.6 ml/min; Est GFR (African American) 75.1; Est GFR (Non-African American) 64.8
[2019-02-03] MEDS: LEVOTHYROXINE SODIUM 50 MCG in SYRINGE 0 ML IV SCH (09:09)
[2019-02-03] MEDS: ASPIRIN 300 MG SUPP PR SCH (09:36)
--- NOTE | 2019-02-03 12:49 | Hospitalist Progress Note ---
Date of Service February 03, 2019 Assessment & Plan (1) Acute ischemic cerebrovascular accident (CVA) involving right middle ce rebral artery territory: Patient is an 88-year-old female with history of dementia, CVA, hypothyroidism, atrial fibrillation on chronic anticoagulation, diastolic CHF, C OPD and other problems presents with history of sudden onset of facial droop, slurred speech, left-sided weakness started after having her lunch this afternoon noticed by her . CT scan showed R MCA stroke, now with midline shift. Prognosis very poor . This is explained by prior hospitalist her daughter, Yen, who verbalized understanding. Appreciate neuro input and recommendation Appreciate palliative care input and recommendation Likely to go for comfort care from here (2) Atrial fibrillation: Came in with RVR, given dig IV and metoprolol overnight for intermittent tachycardia. Lopressor IV q6hrs PRN tachycardia Heart rate is controlled (3) S/P placement of cardiac pacemaker: cannot receive MRI (4) Hypothyroidism: Synthroid held, give IV at 50% while NPO. (5) Dementia: h/o vascular dementia at baseline, delirium precautions, ambulate when able. (6) Urinary incontinence: De Oliveira in place. (7) DVT prophylaxis: SCDs for now DNR/DNI Dispo-cont hospitalization. We will discuss with POA and providers involved before putting her for comfort care only Likely to be discharged and will stay in the hospital for a day or 2 more Subjective 02/03 Patient was seen and examined in telemetry unit Patient is an 88-year-old female with history of dementia, CVA, hypothyroidism, atrial fibrillation on chronic anticoagulation, diastolic CHF, COPD and other problems presents with history of sudden onset of facial droop, slurred speech, left-sided weakness started after having her lunch this afternoon noticed by her . She remains obtunded and unresponsive to any stimuli Otherwise hemodynamically stable Review of Systems Constitutional: Remains unresponsive Eyes: Close Physical Exam Physical Exam: Remains unresponsive but otherwise stable Constitutional: + ill appearing (Not in any acute distress) and + overweight; no acute distress ENMT: external ear and nose normal, oropharynx normal Respiratory: normal respiratory effort Auscultation: + diminished lung sounds (Bilateral) Cardiovascular: Rate/Rhythm: regular rate and regular rhythm Heart Sounds: no murmur Gastrointestinal (Abdomen): Inspection/Auscultation: normal bowel sounds Percussion/Palpation: abdomen soft Neurologic: + not awake (drowsy/obtunded) Remains unresponsive to any stimuli Results & Data Vital Signs (Past 12 Hours) Vital Signs Temp Pulse Pulse Resp BP Pulse Ox 02/03/19 11:23 91 02/03/19 11:11 36.9 C 94 H 23 151/87 H 89 L 02/03/19 10:57 37.0 C 51 L 20 112/59 L 99 02/03/19 08:00 107 H 02/03/19 07:17 36.9 C 101 H 29 H 168/91 H 94 02/03/19 03:49 36.8 C 110 H 26 H 175/89 H 96 Laboratory Results Short CBC 02/03/19 Range/Units 06:12 WBC 8.08 (4.8-10.8) K/uL Hgb 14.1 (12.0-16.0) g/dL Hct 43.8 (37-47) % Plt Count 210 (130-400) K/uL BMP 02/03/19 06:12 Sodium 139 Potassium 4.4 Chloride 102 Carbon Dioxide 32 BUN 14 Creatinine 0.82 Glucose 103 H Calcium 9.[address] of the head;.1. CTA of the head and neck :Evolution of the large right MCA territory infarct involving the majority of the right cerebral hemisphere. No evidence for hemorrhagic transformation at this time. 2. Progressive mass effect with development of 7 mm of left midline shift. 3. These findings were discussed with the patient's physician, Dr. Griggs at 8:30 AM on 02/02/2019. CTA of the head and neck:1. There is a large evolving right MCA territory infarct. 2. No hemorrhage or midline shift is identified. 3. There is no flow identified within the right MCA distal to the M1 segment, likely representing thrombosis of the vessel. 4. There is asymmetrically diminished flow within the right internal carotid artery at the skull base as compared to the left. The vessel remains patent. Echo of the heart: Limited views are obtained, LV is normal size. Severe concentric LVH\,, flattened septum consistent with RV pressure overload, EF 55 to 60% trace MR moderate to severe TR,, and increase in right ventricular systolic pressure at 50 to 60 mmHg Medications Administered Current Inpatient Medications Aspirin (Aspirin) 300 mg ID DAILY [facility] Stop: 03/02/19 16:51 Last Admin: 07/10/19 09:36 Dose: 300 mg Documented by: Bisacodyl (Dulcolax) 10 mg ID DAILY PRN PRN Reason: Constipation Stop: 03/02/19 16:51 Levothyroxine Sodium 50 mcg/ (Syringe) 2.5 mls @ 2 mls/min IV DAILY@0900 [facility] Stop: 03/03/19 10:59 Last Admin: 02/03/19 09:09 Dose: 2 mls/min Documented by: Ioversol (Optiray 320 125ml) 120 ml IV ONCE PRN PRN Reason: Interaction Checking Stop: 02/05/19 09:13 Last Admin: 02/01/19 09:15 Dose: 120 ml Documented by: Ipratropium [place] (Atrovent 0.02% 0.5mg/2.5ml) 0.5 mg INH Q6R PRN PRN Reason: Shortness Of Breath Or Wheezing Stop: 03/04/19 07:59 Levalbuterol HCl (Xopenex 1.25mg/0.5ml Neb) 1.25 mg INH Q6R PRN PRN Reason: Shortness Of Breath Or Wheezing Stop: 03/04/19 07:59 Metoprolol Tartrate (Lopressor) 2.5 mg IV Q6 PRN PRN Reason: HR>120 Stop: 03/04/19 17:59 Last Admin: 02/02/19 20:34 Dose: 2.5 mg Documented by: Miscellaneous Information (Pharmacist Discharge Med Rec Consult) 1 ea N/A UD PRN PRN Reason: Consult Stop: 03/02/19 16:51
[2019-02-03] MEDS: SCOPOLAMINE 1.5 MG TDSY TD SCH (17:26)
[2019-02-04] MEDS: CHECK SCOPOLAMINE PATCH PLACEMENT SCH ×4 (00:38→22:59)
[2019-02-04] MEDS: ASPIRIN 300 MG SUPP PR SCH (09:33)
[2019-02-04] MEDS: LEVOTHYROXINE SODIUM 50 MCG in SYRINGE 0 ML IV SCH (09:33)
--- NOTE | 2019-02-04 16:11 | Palliative Care Progress Note ---
Date of Service February 04, 2019 Assessment & Plan (1) Goals of care, counseling/discussion: -Patient remains in PCU receiving supportive care. -She is obtunded with occasional, minimal response to noxious stimuli. -Prognosis is very poor. -Patient is a resident of the [facility]. From palliative standpoint, she is stable to return there on comfort care as her POLST form reflects when the hospitalist deems her appropriate for discharge. -We will follow peripherally for now. Please contact us with any further palliative care needs. -All decision making must go through DHS legal guardian. (2) Acute ischemic cerebrovascular accident (CVA) involving right middle cerebral artery territory: (3) Atrial fibrillation: (4) Dementia: Subjective Patient obtunded. No ROS obtained. No family at bedside. Review of Systems Review of Systems: Unobtainable due to reduced consciousness Physical Exam Constitutional: + ill appearing (chronically) and + overweight; no acute distress ENMT: external ear and nose normal, oropharynx normal Respiratory: normal respiratory effort Auscultation: + diminished lung sounds Cardiovascular: RRR, no murmur, no edema Gastrointestinal (Abdomen): Inspection/Auscultation: normal bowel sounds Percussion/Palpation: abdomen soft Neurologic: + obtunded Results & Data Vital Signs (Past 12 Hours) Vital Signs Temp Pulse Pulse Resp BP Pulse Ox Pulse Ox 02/04/19 15:57 37.0 C 105 H 24 109/98 92 02/04/19 11:29 36.6 C 87 22 148/75 H 95 02/04/19 08:30 92 H 97 02/04/19 08:02 36.9 C 97 H 19 165/75 H 97 02/04/19 07:04 37.0 C 108 H 24 165/75 H 97 PG Care Time/CCT Total # of Minutes Spent Total Time Spent with Patient: Total time spent is greater than 50% in coordination of care (as documented) at patient's floor/unit and/or counseling patient: Time Spent Midlevel 25 minutes with >50% of the time spent at bedside with patient and IDT discussing plan of care.
[2019-02-05] MEDS: ASPIRIN 300 MG SUPP PR SCH (09:04)
[2019-02-05] MEDS: LEVOTHYROXINE SODIUM 50 MCG in SYRINGE 0 ML IV SCH (09:04)
[2019-02-05] MEDS: CHECK SCOPOLAMINE PATCH PLACEMENT SCH ×2 (09:04→15:24)
--- NOTE | 2019-02-05 14:40 | Palliative Care Progress Note ---
Date of Service February 05, 2019 Assessment & Plan (1) Goals of care, counseling/discussion: Patient's power of home paraprofessional is a court appointed payroll representative-plan is no escalation of care -Patient remains in PCU receiving supportive care, with comfort as goal-titrate O2 for comfort -She is obtunded-no longer responding to family -Prognosis is very poor-daughter aware -Patient is a resident of the [facility]. From palliative standpoint, she is stable to return there on comfort care as her POLST form reflects when the hospitalist deems her appropriate for discharge.. -All decision making must go through DHS legal guardian. (2) Acute ischemic cerebrovascular accident (CVA) involving right middle cerebral artery territory: Patient nearing end-of-life (3) Atrial fibrillation: PRN IV metoprolol for heart rate and blood pressure control, on aspirin suppository for AC (4) excess secretions-scope patch effective (5) hypothyroid-receiving IV Synthroid (2) Acute ischemic cerebrovascular accident (CVA) involving right middle cerebral artery territory: Follow-up scan on 02/02 showed evolving stroke-now with 7 mm midline shift- continue to monitor-goal is comfort, no escalation of care (3) Atrial fibrillation: Rate within acceptable limits-PRN IV metoprolol for blood pressure and heart rate control (4) COPD (chronic obstructive pulmonary disease): Patient appears comfortable-now requiring O2 at 7 L/min for adequate saturations, continue PRN neb treatments Subjective Patient seen and examined-patient's daughter at bedside. Patient unresponsive to voice or touch-appears comfortable Patient requiring increase O2 at 7 L via oxygen mask-sats 95%. Review of Systems Review of Systems: Unobtainable due to cognitive status Physical Exam Physical Exam: PE: Patient appears comfortable, no facial grimace HEENT: Dry mucous membranes, mouth breathing Respiratory: Unlabored, respiratory rate in the low 20s, adequate sats on O2 CV: Tachycardic-heart rate 109 Abdomen: Soft, no grimace on palpation : De Oliveira in place Skin: Lower extremities cold to touch to the level of the knees bilaterally, early mottling. Results & Data Vital Signs (Past 12 Hours) Vital Signs Temp Pulse Resp BP Pulse Ox 02/05/19 11:49 98.1 F 123 H 27 H 124/89 95 02/05/19 09:02 113 H 158/84 H 07/12/19 07:14 97.9 F 115 H 32 H 154/101 H 93 02/05/19 03:41 98.4 F 101 H 24 171/67 H 92 PG Care Time/CCT Total # of Minutes Spent Total Time Spent with Patient: Total time spent is greater than 50% in coordination of care (as documented) at patient's floor/unit and/or counseling patient: Time Spent Attending Total time spent 40 minutes with greater than 50% of the time spent at bedside discussing end-of-life issues at length with daughter.
--- NOTE | 2019-02-05 15:27 | Hospitalist Progress Note ---
Date of Service February 05, 2019 Assessment & Plan (1) Acute ischemic cerebrovascular accident (CVA) involving right middle ce rebral artery territory: Patient is an 88-year-old female with history of dementia, CVA, hypothyroidism, atrial fibrillation on chronic anticoagulation, diastolic CHF, C OPD and other problems presents with history of sudden onset of facial droop, slurred speech, left-sided weakness started after having her lunch this afternoon noticed by her . CT scan showed R MCA stroke, now with midline shift. Prognosis very poor . This is explained by prior hospitalist her daughter, Yen, who verbalized understanding. Appreciate neuro input and recommendation Appreciate palliative care input and recommendation Likely to go for comfort care from here Discussed with the daughter and will continue current supportive measures (2) Atrial fibrillation: Came in with RVR, given dig IV and metoprolol overnight for intermittent tachycardia. Lopressor IV q6hrs PRN tachycardia Heart rate is controlled (3) S/P placement of cardiac pacemaker: cannot receive MRI (4) Hypothyroidism: Synthroid held, give IV at 50% while NPO. (5) Dementia: h/o vascular dementia at baseline, delirium precautions, ambulate when able. (6) Urinary incontinence: De Oliveira in place. (7) DVT prophylaxis: SCDs for now DNR/DNI Dispo-cont hospitalization. We will discuss with POA and providers involved before putting her for comfort care only Likely to be discharged and will stay in the hospital for a day or 2 more Remains critical but stable Subjective 02/03 Patient was seen and examined in telemetry unit Patient is an 88-year-old female with history of dementia, CVA, hypothyroidism, atrial fibrillation on chronic anticoagulation, diastolic CHF, COPD and other problems presents with history of sudden onset of facial droop, slurred speech, left-sided weakness started after having her lunch this afternoon noticed by her . She remains obtunded and unresponsive to any stimuli Otherwise hemodynamically stable 02/04 This is a delayed note from yesterday The patient was seen and examined in telemetry Review of Systems Constitutional: Remains unresponsive Eyes: Close Physical Exam Physical Exam: Remains minimally responsive Constitutional: + ill appearing (Not in any acute distress) and + overweight; no acute distress ENMT: external ear and nose normal, oropharynx normal Respiratory: normal respiratory effort Auscultation: + diminished lung sounds (Bilateral) Cardiovascular: RRR, no murmur, no edema Rate/Rhythm: regular rate and regular rhythm Heart Sounds: no murmur Gastrointestinal (Abdomen): Inspection/Auscultation: normal bowel sounds P ercussion/Palpation: abdomen soft Neurologic: + not awake (drowsy/obtunded) Results & Data Vital Signs (Past 12 Hours) Vital Signs Temp Pulse Resp BP Pulse Ox 02/05/19 11:49 36.7 C 123 H 27 H 124/89 95 02/05/19 09:02 113 H 158/84 H 02/05/19 07:14 36.6 C 115 H 32 H 154/101 H 93 02/05/19 03:41 36.9 C 101 H 24 171/67 H 92
--- NOTE | 2019-02-05 15:45 | Hospitalist Progress Note ---
Date of Service February 05, 2019 Assessment & Plan (1) Acute ischemic cerebrovascular accident (CVA) involving right middle ce rebral artery territory: Patient is an 88-year-old female with history of dementia, CVA, hypothyroidism, atrial fibrillation on chronic anticoagulation, diastolic CHF, C OPD and other problems presents with history of sudden onset of facial droop, slurred speech, left-sided weakness started after having her lunch this afternoon noticed by her . CT scan showed R MCA stroke, now with midline shift. Prognosis very poor . This is explained by prior hospitalist her daughter, Yen, who verbalized understanding. Appreciate neuro input and recommendation Appreciate palliative care input and recommendation She remains unresponsive and the condition has deteriorated since yesterday She was seen in presence of the daughter and Dr. Norman Plan to continue current supportive measures and likely be discharged tomorrow on comfort care if otherwise stable Prognosis remains extremely poor (2) Atrial fibrillation: Came in with RVR, given dig IV and metoprolol overnight for intermittent tachycardia. Lopressor IV q6hrs PRN tachycardia Heart rate is controlled (3) S/P placement of cardiac pacemaker: cannot receive MRI (4) Hypothyroidism: Synthroid held, give IV at 50% while NPO. (5) Dementia: h/o vascular dementia at baseline, delirium precautions, ambulate when able. (6) Urinary incontinence: De Oliveira in place. (7) DVT prophylaxis: SCDs for now DNR/DNI Dispo-cont hospitalization. We will discuss with POA and providers involved before putting her for comfort care only Likely to be discharged and will stay in the hospital for a day or 2 more Remains critical but stable-try to discuss with the POA and left a message to call back Subjective 02/03 Patient was seen and examined in telemetry unit Patient is an 88-year-old female with history of dementia, CVA, hypothyroidism, atrial fibrillation on chronic anticoagulation, diastolic CHF, COPD and other problems presents with history of sudden onset of facial droop, slurred speech, left-sided weakness started after having her lunch this afternoon noticed by her . She remains obtunded and unresponsive to any stimuli Otherwise hemodynamically stable 02/04 This is a delayed note from yesterday The patient was seen and examined in telemetry 02/05 The patient was seen and examined in presence of the daughter Her condition has been deteriorating She is obtunded and very minimal to no response with painful stimuli Seems to be not in any acute distress Plan to continue current supportive measures as of today Review of Systems Constitutional: Remains unresponsive Eyes: Close Physical Exam Physical Exam: Remains unresponsive Constitutional: + ill appearing (Not in any acute distress) and + overweight; no acute distress Eyes: Close ENMT: external ear and nose normal, oropharynx normal Neck: normal visual inspection Respiratory: + respiratory distress (Minimal respiratory distress at rest) Auscultation: + diminished lung sounds (Bilateral) and + crackles (Crackles bibasal) Cardiovascular: Rate/Rhythm: regular rate, regular rhythm and + tachycardic Heart Sounds: no murmur Gastrointestinal (Abdomen): Inspection/Auscultation: normal bowel sounds Percussion/Palpation: abdomen soft Skin: Skin of the lower extremities becoming colder and pale Neurologic: + not awake (drowsy/obtunded) Remains unresponsive to any stimuli Results & Data Vital Signs (Past 12 Hours) Vital Signs Temp Pulse Resp BP Pulse Ox 02/05/19 11:49 36.7 C 123 H 27 H 124/89 95 02/05/19 09:02 113 H 158/84 H 02/05/19 07:14 36.6 C 115 H 32 H 154/101 H 93 02/05/19 03:41 36.9 C 101 H 24 171/67 H 92
[2019-02-05] MEDS: METOPROLOL TARTRATE 1 MG/ML VIAL IV PRN (18:33)
[2019-02-05] MEDS ORDERED: DIGOXIN 250 MCG in SYRINGE 9 ML IV STA (23:41)
[2019-02-05] MEDS ORDERED: ACETAMINOPHEN 65 ML IV ONE (23:41)
[2019-02-05] MEDS ORDERED: MAGNESIUM SULFATE / D5W 1 GM/100 ML BAG IV ONE (23:43)
--- NOTE | 2019-02-06 00:08 | Hospitalist Progress Note ---
Date of Service February 06, 2019 Subjective Made aware by RN of rapid A. fib, fever spike. Plan to transition to comfort measures in a.m. as per AM provider notes. No benefit in continuing medical management for A. fib given above plan. Patient's legal guardian (Viktoriya) and daughter (Ms. Yen Kumari) agreeable to discontinuing unnecessary medications/labs and transitioning patient to comfort measures now. Will relay to AM provider. Results & Data Vital Signs (Past 12 Hours) Vital Signs Temp Pulse Pulse Resp BP BP Pulse Ox 02/06/19 00:00 155 H 02/05/19 23:22 38.1 C H 130 H 19 119/68 91 02/05/19 19:45 38.5 C H 107 H 20 166/75 H 91 02/05/19 18:33 134 H 150/82 H 02/05/19 16:00 114 H 02/05/19 15:52 37.3 C 113 H 24 150/82 H 92
[2019-02-06] MEDS ORDERED: LORazepam 1 MG/2 ML VIAL IV PRN (00:09)
[2019-02-06] MEDS: CHECK SCOPOLAMINE PATCH PLACEMENT SCH ×4 (00:09→22:18)
[2019-02-06] MEDS: MoRPHine SULFATE 4 MG/ML 1 ML CARP\\VIAL IV PRN ×3 (05:02→09:23)
[2019-02-06] MEDS: ATROPINE SULFATE 1% OP SOLN 2 ML BTL SL PRN ×2 (05:30→22:17)
[2019-02-06] MEDS ORDERED: ASPIRIN 600 MG SUPP PR SCH (09:00)
--- NOTE | 2019-02-06 14:53 | Hospitalist Progress Note ---
Date of Service February 06, 2019 Assessment & Plan (1) Acute ischemic cerebrovascular accident (CVA) involving right middle ce rebral artery territory: Patient is an 88-year-old female with history of dementia, CVA, hypothyroidism, atrial fibrillation on chronic anticoagulation, diastolic CHF, C OPD and other problems presents with history of sudden onset of facial droop, slurred speech, left-sided weakness started after having her lunch this afternoon noticed by her . CT scan showed R MCA stroke, now with midline shift. Prognosis very poor . This is explained by prior hospitalist her daughter, Yen, who verbalized understanding. Appreciate neuro input and recommendation Appreciate palliative care input and recommendation She remains unresponsive and the condition has deteriorated since yesterday She was seen in presence of the daughter and Dr. Norman Plan to continue current supportive measures and likely be discharged tomorrow on comfort care if otherwise stable Prognosis remains extremely poor 02/06 Remains critical and unconscious Has been placed on comfort care only since last night after discussion with POA by the night physician Discussed in detail with the daughter Will give her in this hospital tonight and evaluate tomorrow She is to critical/unstable to move at this time Overall prognosis is extremely poor (2) Atrial fibrillation: Came in with RVR, given dig IV and metoprolol overnight for intermittent tachycardia. Lopressor IV q6hrs PRN tachycardia Heart rate is controlled (3) S/P placement of cardiac pacemaker: cannot receive MRI (4) Hypothyroidism: Synthroid held, give IV at 50% while NPO. (5) Dementia: h/o vascular dementia at baseline, delirium precautions, ambulate when able. (6) Urinary incontinence: De Oliveira in place. (7) DVT prophylaxis: SCDs for now DNR/DNI Dispo-cont hospitalization. We will discuss with POA and providers involved before putting her for comfort care only Likely to be discharged and will stay in the hospital for a day or 2 more Remains critical but stable-try to discuss with the POA and left a message to call back Subjective 02/03 Patient was seen and examined in telemetry unit Patient is an 88-year-old female with history of dementia, CVA, hypothyroidism, atrial fibrillation on chronic anticoagulation, diastolic CHF, COPD and other problems presents with history of sudden onset of facial droop, slurred speech, left-sided weakness started after having her lunch this afternoon noticed by her . She remains obtunded and unresponsive to any stimuli Otherwise hemodynamically stable 02/04 This is a delayed note from yesterday The patient was seen and examined in telemetry 02/05 The patient was seen and examined in presence of the daughter Her condition has been deteriorating She is obtunded and very minimal to no response with painful stimuli Seems to be not in any acute distress Plan to continue current supportive measures as of today 02/06 The patient was seen and examined in presence of the daughter in medical floor She has had a fever with tachycardia last night and her overall condition is getting worse She was transferred to medical floor with comfort care only as planned before after discussion with the power of ip attorney by night physician Remains critical but stable Reassured to the daughter that she will not be suffering any pain and/or distress Physical Exam Physical Exam: Remains unconscious without any significant distress Constitutional: + ill appearing (Not in any acute distress) and + overweight; no acute distress Eyes: Closed ENMT: external ear and nose normal, oropharynx normal Neck: normal visual inspection Respiratory: + respiratory distress (Minimal respiratory distress at rest) Auscultation: + diminished lung sounds (Bilateral) and + crackles (Crackles bibasal) Cardiovascular: Rate/Rhythm: + tachycardic; + abnormal rate and + abnormal rhythm Heart Sounds: no murmur Gastrointestinal (Abdomen): Inspection/Auscultation: normal bowel sounds Percussion/Palpation: abdomen soft Neurologic: + not awake (drowsy/obtunded) Totally unconscious
[2019-02-06] MEDS: SCOPOLAMINE 1.5 MG TDSY TD SCH (15:50)
[2019-02-07] MEDS: MoRPHine SULFATE 4 MG/ML 1 ML CARP\\VIAL IV PRN (07:56)
[2019-02-07] MEDS: CHECK SCOPOLAMINE PATCH PLACEMENT SCH (07:56)
--- NOTE | 2019-02-07 14:01 | Hospitalist Progress Note ---
Date of Service February 07, 2019 Assessment & Plan (1) Acute ischemic cerebrovascular accident (CVA) involving right middle ce rebral artery territory: Patient is an 88-year-old female with history of dementia, CVA, hypothyroidism, atrial fibrillation on chronic anticoagulation, diastolic CHF, C OPD and other problems presents with history of sudden onset of facial droop, slurred speech, left-sided weakness started after having her lunch this afternoon noticed by her . CT scan showed R MCA stroke, now with midline shift. Prognosis very poor . This is explained by prior hospitalist her daughter, Yen, who verbalized understanding. Appreciate neuro input and recommendation Appreciate palliative care input and recommendation She remains unresponsive and the condition has deteriorated since yesterday She was seen in presence of the daughter and Dr. Norman Plan to continue current supportive measures and likely be discharged tomorrow on comfort care if otherwise stable Prognosis remains extremely poor 02/06 Remains critical and unconscious Has been placed on comfort care only since last night after discussion with POA by the night physician Discussed in detail with the daughter Will give her in this hospital tonight and evaluate tomorrow She is to critical/unstable to move at this time Overall prognosis is extremely poor She has been on comfort care since yesterday Remains unresponsive and critical We will continue comfort care for now (2) Atrial fibrillation: Came in with RVR, given dig IV and metoprolol overnight for intermittent tachycardia. Lopressor IV q6hrs PRN tachycardia Tachycardia with fever (3) S/P placement of cardiac pacemaker: cannot receive MRI (4) Hypothyroidism: Synthroid held, give IV at 50% while NPO. (5) Dementia: h/o vascular dementia at baseline, delirium precautions, ambulate when able. (6) Urinary incontinence: De Oliveira in place. (7) DVT prophylaxis: SCDs for now DNR/DNI Dispo-cont hospitalization. We will discuss with POA and providers involved before putting her for comfort care only Likely to be discharged and will stay in the hospital for a day or 2 more Remains critical but stable-try to discuss with the POA and left a message to call back Subjective 02/03 Patient was seen and examined in telemetry unit Patient is an 88-year-old female with history of dementia, CVA, hypothyroidism, atrial fibrillation on chronic anticoagulation, diastolic CHF, COPD and other problems presents with history of sudden onset of facial droop, slurred speech, left-sided weakness started after having her lunch this afternoon noticed by her . She remains obtunded and unresponsive to any stimuli Otherwise hemodynamically stable 02/04 This is a delayed note from yesterday The patient was seen and examined in telemetry 02/05 The patient was seen and examined in presence of the daughter Her condition has been deteriorating She is obtunded and very minimal to no response with painful stimuli Seems to be not in any acute distress Plan to continue current supportive measures as of today 02/06 The patient was seen and examined in presence of the daughter in medical floor She has had a fever with tachycardia last night and her overall condition is getting worse She was transferred to medical floor with comfort care only as planned before after discussion with the power of [place] attorney by night physician Remains critical but stable Reassured to the daughter that she will not be suffering any pain and/or distress 02/07 The patient was seen and examined in medical floor She remains totally unresponsive Physical Exam Physical Exam: Remains unresponsive without any acute distress Constitutional: + acute distress, + ill appearing (Not in any acute distress) and + overweight Eyes: Closed Neck: normal visual inspection Respiratory: + respiratory distress (Minimal respiratory distress at rest) Auscultation: + diminished lung sounds (Bilateral) and + crackles (Crackles bibasal and transmitted sound) Cardiovascular: Rate/Rhythm: + tachycardic; + abnormal rhythm Heart Sounds: no murmur Gastrointestinal (Abdomen): Inspection/Auscultation: normal bowel sounds Percussion/Palpation: abdomen soft Skin: Dusky discoloration of the skin of the legs Neurologic: + not awake (drowsy/obtunded) Unresponsive
--- NOTE | 2019-02-08 20:30 | Discharge Summary ---
Date of Service February 08, 2019 Admission HPI Per Admitting Provider 88-year-old female who was brought to the ED from [facility] for evaluation of strokelike symptoms. History is currently unobtainable from the patient. at the bedside who provides some information. He reports that they had eat lunch together and then about 1 hour later her speech was slurred, had a left-sided facial droop, and would not move left side. EMS was then called and patient was brought to the ED for further evaluation. I also discussed the case with staff at [facility]. They report that patient has been generally well recently. She does often refuse her medications and oxygen. Patient is on Eliquis for history of atrial fibrillation, per MAR patient has been refusing this medication several times. In the ED, a stroke alert was called and patient was evaluated. Patient was felt to not be a TPA candidate secondary to advanced age and being prescribed Eliquis. CT head shows an acute right MCA infarct. Patient was given IV Tylenol and metoprolol tartrate 2.5 mg IV. Admission Exam Per Admitting Provider Physical Exam: Vitals signs as noted above General Appearance:Moderately built and nourished, no apparent distress Head: normocephalic, Atraumatic, +Facial droop, Right sided gaze Eyes: normal inspection, EOMI Neck: supple, Trachea midline Respiratory/Chest: Decreased breath sounds, + basal crackles Cardiovascular: Irregularly Irregular, No murmur Abdomen/GI:Soft, Non tender, Bowel sounds present Extremities/Musculoskelatal:normal inspection, 1-2+ B/L LE edema Neurologic/Psych:Left sided paralysis, +facial droop, slurred speech, left sided neglect Skin:normal color,warm Principal Diagnosis : 1.Acute Ischemic Stroke 2, Atrial fibrillation Discharge Exam February 07, 2019 14:09 Asked to pronounce; Examination: Totally unresponsive to any stimuli No palpable pulse and her blood pressure No heart sounds and respiration Pupils dilated and fixed She was pronounced on 07 February at 1326 hrs. The causes of are:1) Acute ischemic stroke 2) Atrial Fibrillation The daughter was aware. Dr. Tejinder Villavicencio Discharge Data Allergies Allergy/AdvReac Type Severity Reaction Status Date / Time Penicillins Allergy Unknown RXN TO Verified 01/31/19 13:58 AMOXICILLIN adhesive AdvReac Mild RXN TO TAPE Verified 01/31/19 13:58 Consultations 01/31/19 14:12 ED Decision to Admit Stat 01/31/19 16:52 Consult Case Management - Discharge Planning Routine Consult Neurology Routine Consult Palliative Care Routine Ordered Studies 01/31/19 13:09 CT head/brain wo con Stat 02/01/19 08:00 CT angio head w con Urgent 02/02/19 08:00 CT head/brain wo con Routine Hospital Course (1) Acute ischemic cerebrovascular accident (CVA) involving right middle cerebral artery territory: Patient is an 88-year-old female with history of dementia, CVA, hypothyroidism, atrial fibrillation on chronic anticoagulation, diastolic CHF, COPD and other problems presents with history of sudden onset of facial droop, slurred speech, left-sided weakness started after having her lunch this afternoon noticed by her . CT scan showed R MCA stroke, now with midline shift. Prognosis very poor . This is explained by prior hospitalist her daughter, Yen, who verbalized understanding. Appreciate neuro input and recommendation Appreciate palliative care input and recommendation She remains unresponsive and the condition has deteriorated since yesterday She was seen in presence of the daughter and Dr. Norman Plan to continue current supportive measures and likely be discharged tomorrow on comfort care if otherwise stable Prognosis remains extremely poor 02/06 Remains critical and unconscious Has been placed on comfort care only since last night after discussion with POA by the night physician Discussed in detail with the daughter Will give her in this hospital tonight and evaluate tomorrow She is to critical/unstable to move at this time Overall prognosis is extremely poor 02/07 She has been on comfort care since yesterday Remains unresponsive and critical We will continue comfort care for now (2) Atrial fibrillation: Came in with RVR, given dig IV and metoprolol overnight for intermittent tachycardia. Lopressor IV q6hrs PRN tachycardia Tachycardia with fever (3) S/P placement of cardiac pacemaker: cannot receive MRI (4) Hypothyroidism: Synthroid held, give IV at 50% while NPO. (5) Dementia: h/o vascular dementia at baseline, delirium precautions, ambulate when able. (6) Urinary incontinence: De Oliveira in place. (7) DVT prophylaxis: SCDs for now DNR/DNI Dispo-cont hospitalization. We will discuss with POA and providers involved before putting her for comfort care only Likely to be discharged and will stay in the hospital for a day or 2 more Remains critical but stable-try to discuss with the POA and left a message to call back Total Time Total Time Spent Total Time Spent (In Minutes): 35 minutes Total Time Includes: Examination of the Patient and Other (Comforting the Daughter) Discharge Plan Discharge Items Patient Disposition: Admission Data Admit Date/Time: 01/31/19 15:10 Attending Provider: Carlos Villavicencio Admit Provider: Nathan Collier Primary Care Provider: Shan [place] Other Providers: Blaire Griggs ; Nathan Collier ; Joanie Guillaume ; Priti Norman Service: Medical Other DC Date/Time DO NOT enter until pt leaves facility: 02/07/19 15:32
== END 2019-02-07 15:32 | disposition expired | DRG 64 ==
LOC: ED 13:12 → 2S 15:10 → SUATTDRO 15:10 → 2E 16:29 → 4E 02-06 04:30